=== PATIENT | female | born 1935 | race African-American/Black ===

== ENCOUNTER 2017-01-10 23:22 | Emergency (ER) | payer MEDICARE ==
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
[2017-01-11 01:37] VITALS: BP 159/77
== END 2017-01-11 01:44 | disposition home or self-care (01) ==
LOC: ED 23:22
DX: I10 Essential (primary) hypertension (principal); R53.1 Weakness; E11.9 Type 2 diabetes mellitus without complications; E03.9 Hypothyroidism, unspecified; I25.119 Atherosclerotic heart disease of native coronary artery with unspecified angina pectoris; E78.00 Pure hypercholesterolemia, unspecified; I25.2 Old myocardial infarction; I73.9 Peripheral vascular disease, unspecified; J45.909 Unspecified asthma, uncomplicated; K57.90 Diverticulosis of intestine, part unspecified, without perforation or abscess without bleeding; K21.9 Gastro-esophageal reflux disease without esophagitis; Z88.0 Allergy status to penicillin
CPT/HCPCS: 93005; 99284

== ENCOUNTER → 2017-02-13 | Emergency (ER) | payer MEDICARE ==
[~2017-02-13] MED LIST: NS 0.9% 1000 ML* 1,000 ML IV ONE; Nitrofurantoin Macrocrystals* 100 MG CAP PO ONE; Sulfamethox/Trimethoprim DS 800/160* TAB PO ONE
[2017-02-13 10:03] LABS: Hematocrit 36 % (35-47); Hemoglobin 11.9 g/dl (12.0-16.0); Mean Corpuscular HGB Conc 33 g/dl (31-36); Mean Corpuscular Hemoglobin 30 pg (27-31); Mean Corpuscular Volume 88 fL (80-97); Red Blood Count 4.03 10^6/ul (4.0-5.4); Red Cell Distribution Width 14 % (10.5-15)
[2017-02-13 10:04] LABS: Add Diff/Slide Review? Slide Review Added; Comments Flag Yes
[2017-02-13 10:16] LABS: Troponin I 0.01 ng/mL (<0.04)
[2017-02-13 10:20] LABS: ALT 10 U/L (7-52); Albumin 3.9 g/dL (3.2-5.2); Alkaline Phosphatase 54 U/L (34-104); BUN/Creatinine Ratio 21.8 (8-20); Blood Urea Nitrogen 32 mg/dL (6-24); CO2 Carbon Dioxide 29 mmol/L (22-32); Calcium 10.8 mg/dL (8.6-10.3); Chloride 99 mmol/L (101-111); EGFR African American 44.1 (>60); EGFR Non-African American 34.3 (>60); Globulin 3.9 g/dL (2-4); Glucose 100 mg/dL (70-100); Sodium 135 mmol/L (133-145); Total Protein 7.8 g/dL (6.4-8.9)
--- NOTE | 2017-02-13 10:26 | RAD ---
Indication: Dizziness. Asthma. Hypertension. Comparison: May 16, 2015 Technique: PA and lateral chest views. Report: Elevated lung volumes with increased AP thoracic diameter. No pulmonary infiltrate, focal pulmonary lesion, pleural effusion, pneumothorax. Cardiomegaly. Unremarkable central pulmonary vasculature. Moderately tortuous thoracic aorta without change. Thoracic degenerative spondylosis. Arthropathic change at the bilateral shoulders. IMPRESSION: 1. Stigmata of probable obstructive lung disease corresponding with history of asthma. 2. Cardiomegaly without evidence for pulmonary edema. 3. No acute intrathoracic process evident.
[2017-02-13 10:37] LABS: TSH (Thyroid Stimulating Horm) 3.89 mcIU/mL (0.34-5.60)
[2017-02-13 10:50] LABS: Mean Platelet Volume 9 um3 (7.4-10.4); White Blood Count 13.9 10^3/ul (3.5-10.8)
[2017-02-13 11:10] LABS: Anion Gap 7 mmol/L (2-11)
[2017-02-13 11:32] LABS: Urine Bacteria 1+ (Absent); Urine Bilirubin Negative (Negative); Urine Glucose Negative (Negative); Urine Nitrite Positive (Negative)
[2017-02-13 11:57] VITALS: BP 123/83
[2017-02-13 12:09] LABS: Magnesium 2.1 mg/dL (1.9-2.7)
--- NOTE | 2017-02-14 08:33 | ED ---
Rg Mir Angela, scribed for Panfilo Baxter MD on 02/13/17 at 0800 . Dizziness - HPI Summary HPI Summary: This pt is a 81 y/o female accompanied by her presenting to [facility] c/o dizziness approximately x1 week. Pt reports she feels light-headed and like she is going to faint. Pt denies headache, blurry vision, visual changes, chest pain , SOB. Pt states she has a kidney infection and was taking antibiotics for this. She notes she only took it twice and stopped it as "they were too strong" and caused her dizziness. Pt is a poor historian and is unsure of what antibiotics she was taking. PCP: Chloe Singh - History Of Current Complaint Chief Complaint: EDDizziness Stated Complaint: DIZZY Time Seen by Provider: 02/13/17 07:43 Hx Obtained From: Patient Onset/Duration: Still Present Timing: Days Character: Lightheaded - feeling like passing out Aggravating Factor(s): Nothing Alleviating Factor(s): Nothing Associated Signs And Symptoms: Negative: Chest Pain, SOB, Visual Changes - Allergies/Home Medications Allergies/Adverse Reactions: Allergies Allergy/AdvReac Type Severity Reaction Status Date / Time Penicillin G Allergy Unknown Verified 12/22/14 09:18 Reaction Details ENVIRONMENTAL Allergy HEADACHES Uncoded 12/22/14 09:18 PMH/Surg Hx/FS Hx/Imm Hx Endocrine/Hematology History: Reports: Hx Diabetes - DIET CONTROL, Hx Thyroid Disease - hypothyroid Denies: Hx Anticoagulant Therapy, Hx Blood Disorders, Hx Blood Transfusions, Hx Bone Marrow Disease, Hx Systemic Lupus Erythematosus, Hx Sickle Cell Disease , Hx Anemia, Hx Unexplained Bleeding Cardiovascular History: Reports: Hx Angina, Hx Angioplasty, Hx Coronary Artery Disease, Hx Deep Vein Thrombosis, Hx Hypercholesterolemia, Hx Hypertension - controlled with meds, Hx Myocardial Infarction, Hx Peripheral Vascular Disease Denies: Hx Aneurysm, Hx Auto Implanted Cardiovert Defib, Hx Cardiac Arrest, Hx Cardiomegaly, Hx Congenital Heart Disease, Hx Congestive Heart Failure, Hx Hypotension, Hx Pacemaker/ICD, Hx Rheumatic Fever, Hx Syncope, Hx Valvular Heart Disease Respiratory History: Reports: Hx Asthma, Hx Sleep Apnea - states hx of but does not use CPAP at home Denies: Hx Chronic Bronchitis, Hx Chronic Obstructive Pulmonary Disease (COPD ), Hx Cystic Fibrosis, Hx Lung Cancer, Hx Pleural Effusion, Hx Pneumonia, Hx Pulmonary Edema, Hx Pulmonary Embolism, Hx Seasonal Allergies, Other Respiratory Problems/Disorders GI History: Reports: Hx Diverticulosis, Hx Gastroesophageal Reflux Disease Denies: Hx Cirrhosis, Hx Crohn's Disease, Hx Gall Bladder Disease, Hx Gastrointestinal Bleed, Hx Hiatal Hernia, Hx Irritable Bowel, Hx Jaundice, Hx Obstructive Bowel, Hx Ileostomy, Hx Pyloric Stenosis, Hx Ulcer, Other GI Disorders History: Denies: Hx Acute Renal Failure, Hx Benign Prostatic Hyperplasia, Hx Chronic Renal Failure, Hx Dialysis, Hx Kidney Infection, Hx Kidney Stones, Other Problems/Disorders Musculoskeletal History: Reports: Hx Arthritis - generalized, Hx Back Problems, Hx Tendonitis - fingers, 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) Denies: Hx Bursitis, Hx Congenital Bone Abnormalities, Hx Fibromyalgia, Hx Gout, Hx Orthopedic Injury, Hx Osteoporosis, Hx Scoliosis Sensory History: Reports: Hx Cataracts, Hx Contacts or Glasses, Hx Glaucoma, Hx Vision Problem, Hx Hearing Problem Denies: Hx Eye Injury, Hx Eye Prosthesis, Hx Macular Degeneration, Hx Deafness, Hx Hearing Aid, Other Sensory Impairments Opthamlomology History: Reports: Hx Cataracts, Hx Contacts or Glasses, Hx Glaucoma, Hx Vision Problem Denies: Hx Eye Injury, Hx Eye Prosthesis, Hx Macular Degeneration, Other Sensory Impairments Neurological History: Reports: Hx Headaches - once in a while, not chronic Denies: Hx Dementia, Hx Developmental Delay, Hx Migraine, Hx Seizures, Hx Spinal Cord Injury, Hx Transient Ischemic Attacks (TIA) Psychiatric History: Denies: Hx Anxiety, Hx Attention Deficit Hyperactivity Disorder, Hx Eating Disorder, Hx Depression, Hx Panic Disorder, Hx Post Traumatic Stress Disorder, Hx Inpatient Treatment, Hx Community Mental Health Tx, Hx Schizophrenia, Hx Bipolar Disorder, Hx Suicide Attempt, Hx Substance Abuse, Other Psychiatric Issues/Disorders - Cancer History Hx Chemotherapy: No Hx Radiation Therapy: No - Surgical History Surgery Procedure, Year, and Place: LEFT KNEE X2.....RIGHT KNEE X1 Hx Anesthesia Reactions: No - Immunization History Date of Influenza Vaccine: 2016 Infectious Disease History: No Infectious Disease History: Reports: History Other Infectious Disease - herpes Denies: Hx Clostridium Difficile, Hx Hepatitis, Hx Human Immunodeficiency Virus (HIV), Hx of Known/Suspected MRSA, Hx Shingles, Hx Tuberculosis, Hx Known/ Suspected VRE, Hx Known/Suspected VRSA, Traveled Outside the [place] in Last 30 Days - Family History Known Family History: Positive: Diabetes Family History: Type II - Social History Alcohol Use: None Hx Substance Use: No Substance Use Type: Reports: None Hx Tobacco Use: No Smoking Status (MU): Never Smoked Tobacco Have You Smoked in the Last Year: No Review of Systems Negative: Fever, Chills Negative: Blurred Vision, Diplopia Negative: Chest Pain Negative: Shortness Of Breath Neurological: Other - dizziness Negative: Headache All Other Systems Reviewed And Are Negative: Yes Physical Exam - Summary Physical Exam Summary: VITAL SIGNS: Reviewed. GENERAL: Patient is a well-developed and nourished female who is lying comfortable in the stretcher. Patient is not in any acute respiratory distress. HEAD AND FACE: No signs of trauma. No ecchymosis, hematomas or skull depressions. No sinus tenderness. EYES: PERRLA, EOMI x 2, No injected conjunctiva, no nystagmus. EARS: Hearing grossly intact. Ear canals and tympanic membranes are within normal limits. MOUTH: Oropharynx within normal limits. NECK: Supple, trachea is midline, no adenopathy, no JVD, no carotid bruit, no c- spine tenderness, neck with full ROM. CHEST: Symmetric, no tenderness at palpation LUNGS: Clear to auscultation bilaterally. No wheezing or crackles. CVS: Regular rate and rhythm, S1 and S2 present, no murmurs or gallops appreciated. ABDOMEN: Soft, non-tender. No signs of distention. No rebound no guarding, and no masses palpated. Bowel sounds are normal. EXTREMITIES: FROM in all major joints, no edema, no cyanosis or clubbing. NEURO: Alert and oriented x 3. No acute neurological deficits. Speech is normal and follows commands. SKIN: Dry and warm Triage Information Reviewed: Yes Vital Signs On Initial Exam: Initial Vitals Temp Pulse Resp BP Pulse Ox 97.8 F 85 18 141/77 100 02/13/17 07:29 02/13/17 07:29 02/13/17 07:29 02/13/17 07:29 02/13/17 07:29 Vital Signs Reviewed: Yes Diagnostics - Vital Signs Vital Signs Temp Pulse Resp BP Pulse Ox 02/13/17 07:29 97.8 F 85 18 141/77 100 - Laboratory Result Diagrams: 02/13/17 09:33 02/13/17 11:18 Lab Statement: Any lab studies that have been ordered have been reviewed, and results considered in the medical decision making process. - Radiology Chest XR Xray Interpretation: Positive (See Comments) - IMPRESSION: 1. Stimata of probable obstructive lung disease corresponding with history of asthma. 2. Cardiomegaly without evidence for pulmonary edema. 3. No acute intrathoracic process evident. ED physician has reviewed this radiology report and agrees. Radiology Interpretation Completed By: Radiologist - EKG 0940 Cardiac Rate: Bradycardia EKG Rhythm: Sinus Rhythm - at 59 bpm EKG Interpretation: Right bundle branch block. EKG Comparison: No Significant Change - similart to prior EKG one 01/11/17. Dizzy Course/Dx - Course Assessment/Plan: This pt is a 81 y/o female accompanied by her presenting to [facility] c/o dizziness approximately x1 week. Pt reports she feels light-headed and like she is going to faint. Pt denies headache, blurry vision, visual changes, chest pain, SOB. Pt states she has a kidney infection and was taking antibiotics for this. She notes she only took it twice and stopped it as "they were too strong" and caused her dizziness. Pt is a poor historian and is unsure of what antibiotics she was taking. PCP: Chloe Singh. Test results show WBC of 13.9, chronic renal failure, and UTI. In the ED course, the pt declined IV fluids, but she is drinking water. Pt was given Macrobid since when she was given Bactrim she developed dizziness. At this point I discussed the test results and findings with the pt and pts son. They agreed to go home and follow up with the pts PCP. Pt is hemodynamically stable, alert and oriented x3. - Diagnoses Provider Diagnoses: Urinary tract infection, Dizziness Discharge - Discharge Plan Condition: Stable Disposition: HOME Prescriptions: Nitrofurantoin Macrocrystals* [Macrodantin*] 100 mg PO BID #20 cap Patient Education Materials: Urinary Tract Infection in Women (ED) Referrals: Chloe Schneider [Primary Care Provider] - Additional Instructions: Please follow up with your primary care provider. RETURN TO THE ED FOR ANY WORSENING SYMPTOMS. The documentation as recorded by the Rg spann Angela accurately reflects the service I personally performed and the decisions made by me, Panfilo Baxter MD.
--- NOTE | 2017-02-15 09:02 | PN ---
Progress Note - Progress Note Date of Service: 02/13/17 Note: patient diagnosed and treated for UTI. culture results show 75-100,000 of aerococcus species which has susceptibility to commonly used antimicrobials. d/c on macrobid. which should have sufficient coverage per culture results. no further action required at this time.
== END | disposition home or self-care (01) ==
LOC: ED 07:27
DX: N39.0 Urinary tract infection, site not specified (principal); R42 Dizziness and giddiness; I25.10 Atherosclerotic heart disease of native coronary artery without angina pectoris; Z86.718 Personal history of other venous thrombosis and embolism; E78.00 Pure hypercholesterolemia, unspecified; I10 Essential (primary) hypertension; I25.2 Old myocardial infarction; I73.9 Peripheral vascular disease, unspecified; J45.909 Unspecified asthma, uncomplicated; G47.30 Sleep apnea, unspecified
CPT/HCPCS: 36415; 71020; 80053; 81003; 81015; 83735; 84443; 84484; 85025; 87077; 87086; 93005; 96360; 99283; A9270-GY

== ENCOUNTER 2017-05-02 17:21 | Emergency (ER) | payer MEDICARE ==
[2017-05-02] MEDS ORDERED: Morphine INJ* 4 MG/ML 1 ML CARPUJECT IV ONE (17:43)
[2017-05-02] MEDS ORDERED: Ondansetron INJ* 2 MG/ML VIAL IV ONE (17:43)
[2017-05-02] MEDS ORDERED: NS 0.9% 1000 ML* 1,000 ML IV ONE (17:44)
--- NOTE | 2017-05-02 17:49 | ED ---
GI/ HPI - HPI Summary HPI Summary: 81-year-old female presents with right flank pain for the past 2 days. She says she has a history of kidney stones and had a ultrasound shows such a couple weeks ago. She denies any nausea or vomiting. She denies any injury. She denies any saddle anesthesia or loss of bowel or bladder. She denies any diarrhea. She admits to constipation. She denies any abdominal pain. She denies any abdominal surgeries. She does not have a urologist. She denies any hematuria, dysuria, frequency, or urgency. She denies any chest pain or shortness of breath. She states she has had this pain before when she had a kidney stone on the other side. She took her tramadol without relief. She states pain is worse with movement. She denies any pain or numbness or tingling down her legs. She is a diabetic and has high blood pressure and has chronic kidney disease that follows up with Dr. Carpio for. pain is 10/10. She denies any fever. - History of Current Complaint Chief Complaint: EDFlankPain Time Seen by Provider: 05/02/17 17:32 Stated Complaint: BACK PAIN Pain Intensity: 10 - Additional Pertinent History Primary Care Physician: [id number] - Allergy/Home Medications Allergies/Adverse Reactions: Allergies Allergy/AdvReac Type Severity Reaction Status Date / Time MS Penicillin G Allergy Unknown Verified 12/22/14 09:18 [Penicillin G] Reaction Details ENVIRONMENTAL Allergy HEADACHES Uncoded 12/22/14 09:18 PMH/Surg Hx/FS Hx/Imm Hx Endocrine/Hematology History: Reports: Hx Diabetes - DIET CONTROL, Hx Thyroid Disease - hypothyroid Denies: Hx Anticoagulant Therapy, Hx Blood Disorders, Hx Blood Transfusions, Hx Bone Marrow Disease, Hx Systemic Lupus Erythematosus, Hx Sickle Cell Disease , Hx Anemia, Hx Unexplained Bleeding Cardiovascular History: Reports: Hx Angina, Hx Angioplasty, Hx Coronary Artery Disease, Hx Deep Vein Thrombosis, Hx Hypercholesterolemia, Hx Hypertension - controlled with meds, Hx Myocardial Infarction, Hx Peripheral Vascular Disease Denies: Hx Aneurysm, Hx Auto Implanted Cardiovert Defib, Hx Cardiac Arrest, Hx Cardiomegaly, Hx Congenital Heart Disease, Hx Congestive Heart Failure, Hx Hypotension, Hx Pacemaker/ICD, Hx Rheumatic Fever, Hx Syncope, Hx Valvular Heart Disease Respiratory History: Reports: Hx Asthma, Hx Sleep Apnea - states hx of but does not use CPAP at home Denies: Hx Chronic Bronchitis, Hx Chronic Obstructive Pulmonary Disease (COPD ), Hx Cystic Fibrosis, Hx Lung Cancer, Hx Pleural Effusion, Hx Pneumonia, Hx Pulmonary Edema, Hx Pulmonary Embolism, Hx Seasonal Allergies, Other Respiratory Problems/Disorders GI History: Reports: Hx Diverticulosis, Hx Gastroesophageal Reflux Disease Denies: Hx Cirrhosis, Hx Crohn's Disease, Hx Gall Bladder Disease, Hx Gastrointestinal Bleed, Hx Hiatal Hernia, Hx Irritable Bowel, Hx Jaundice, Hx Obstructive Bowel, Hx Ileostomy, Hx Pyloric Stenosis, Hx Ulcer, Other GI Disorders History: Denies: Hx Acute Renal Failure, Hx Benign Prostatic Hyperplasia, Hx Chronic Renal Failure, Hx Dialysis, Hx Kidney Infection, Hx Kidney Stones, Other Problems/Disorders Musculoskeletal History: Reports: Hx Arthritis - generalized, Hx Back Problems, Hx Tendonitis - fingers, 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) Denies: Hx Bursitis, Hx Congenital Bone Abnormalities, Hx Fibromyalgia, Hx Gout, Hx Orthopedic Injury, Hx Osteoporosis, Hx Scoliosis Sensory History: Reports: Hx Cataracts, Hx Contacts or Glasses, Hx Glaucoma, Hx Vision Problem, Hx Hearing Problem Denies: Hx Eye Injury, Hx Eye Prosthesis, Hx Macular Degeneration, Hx Deafness, Hx Hearing Aid, Other Sensory Impairments Opthamlomology History: Reports: Hx Cataracts, Hx Contacts or Glasses, Hx Glaucoma, Hx Vision Problem Denies: Hx Eye Injury, Hx Eye Prosthesis, Hx Macular Degeneration, Other Sensory Impairments Neurological History: Reports: Hx Headaches - once in a while, not chronic Denies: Hx Dementia, Hx Developmental Delay, Hx Migraine, Hx Seizures, Hx Spinal Cord Injury, Hx Transient Ischemic Attacks (TIA) Psychiatric History: Denies: Hx Anxiety, Hx Attention Deficit Hyperactivity Disorder, Hx Eating Disorder, Hx Depression, Hx Panic Disorder, Hx Post Traumatic Stress Disorder, Hx Inpatient Treatment, Hx Community Mental Health Tx, Hx Schizophrenia, Hx Bipolar Disorder, Hx Suicide Attempt, Hx Substance Abuse, Other Psychiatric Issues/Disorders - Cancer History Hx Chemotherapy: No Hx Radiation Therapy: No - Surgical History Surgery Procedure, Year, and Place: LEFT KNEE X2.....RIGHT KNEE X1 Hx Anesthesia Reactions: No - Immunization History Date of Influenza Vaccine: 2016 Infectious Disease History: No Infectious Disease History: Reports: History Other Infectious Disease - herpes Denies: Hx Clostridium Difficile, Hx Hepatitis, Hx Human Immunodeficiency Virus (HIV), Hx of Known/Suspected MRSA, Hx Shingles, Hx Tuberculosis, Hx Known/ Suspected VRE, Hx Known/Suspected VRSA, Traveled Outside the [place] in Last 30 Days - Family History Known Family History: Positive: Diabetes Family History: Type II - Social History Alcohol Use: None Hx Substance Use: No Substance Use Type: Reports: None Hx Tobacco Use: No Smoking Status (MU): Never Smoked Tobacco Have You Smoked in the Last Year: No Review of Systems Negative: Fever Negative: Chest Pain Negative: Shortness Of Breath Negative: Abdominal Pain, Vomiting, Diarrhea Positive: flank pain. Negative: dysuria, frequency All Other Systems Reviewed And Are Negative: Yes Physical Exam Triage Information Reviewed: Yes Vital Signs On Initial Exam: Initial Vitals Temp Pulse Resp BP Pulse Ox 97.3 F 72 20 153/79 99 05/02/17 17:24 05/02/17 17:24 05/02/17 17:24 05/02/17 17:24 05/02/17 17:24 Vital Signs Reviewed: Yes Appearance: Positive: Pain Distress Skin: Positive: Warm, Dry Head/Face: Positive: Normal Head/Face Inspection Eyes: Positive: Normal, Conjunctiva Clear Respiratory/Lung Sounds: Positive: Clear to Auscultation, Breath Sounds Present Cardiovascular: Positive: Normal, RRR Abdomen Description: Positive: Nontender, Soft, CVA Tenderness (R) Bowel Sounds: Positive: Present Musculoskeletal: Positive: Normal Neurological: Positive: Normal Psychiatric: Positive: Normal Diagnostics - Vital Signs Vital Signs Temp Pulse Resp BP Pulse Ox 05/02/17 17:24 97.3 F 72 20 153/79 99 - Laboratory Result Diagrams: 05/02/17 18:30 05/02/17 18:30 Lab Statement: Any lab studies that have been ordered have been reviewed, and results considered in the medical decision making process. - CT abd CT Interpretation: Positive (See Comments) - IMPRESSION: 1. PUNCTATE BILATERAL NONOBSTRUCTING RENAL CALYCEAL STONES. 2. DIVERTICULOSIS. 3. ATHEROSCLEROSIS. 4. HEPATOMEGALY. CT Interpretation Completed By: Radiologist MARIO Course/Dx - Course Course Of Treatment: 81-year-old female presents with right flank pain for the past 2 days. She says she has a history of kidney stones and had a ultrasound shows such a couple weeks ago. She denies any nausea or vomiting. She denies any injury. She denies any saddle anesthesia or loss of bowel or bladder. She denies any diarrhea. She admits to constipation. She denies any abdominal pain. She denies any abdominal surgeries. She does not have a urologist. She denies any hematuria, dysuria, frequency, or urgency. She denies any chest pain or shortness of breath. She states she has had this pain before when she had a kidney stone on the other side. She took her tramadol without relief. She states pain is worse with movement. She denies any pain or numbness or tingling down her legs. On exam abdomen soft nontender. CVA tenderness on right side. CT shows nonobstructing renal stones. labs wbc normal. bun and cr about where has been with kidney disease. urine shows infection. will treat with bactrim as possibly has pyelo with flank pain. will treat for 10 days with such. told to take potassium every other day as bactrim increase potassium. will have follow up with primary. will give referral for urology for renal stones. patient understand and agrees with plan. - Diagnoses Differential Diagnoses - Female: Pyelonephritis, Urinary Tract Infection, Ureteral Calculi Provider Diagnoses: Renal colic on right side, Chronic kidney disease, UTI (urinary tract infection ) Discharge - Discharge Plan Condition: Good Disposition: HOME Prescriptions: oxyCODONE/Acetamin 5/325 MG* [Percocet 5/325 TAB*] 1 tab PO Q6H PRN #8 tab MDD 4 PRN Reason: Pain Sulfamethox/Trimethoprim DS* [Bactrim DS 800/160 TAB*] 1 tab PO DAILY #19 tab Patient Education Materials: Urinary Tract Infection in Women (ED), Renal Colic (ED) Referrals: Chloe Schneider [Primary Care Provider] - Noble Moreno MD [Medical Doctor] - Additional Instructions: Take antibiotic twice a day for 10 days, starting tomorrow Take potassium every other day until stop antibiotic Drink plenty of water Take Tylenol every 6 hours, use narcotic for break through pain Establish care with urology Follow up with primary within 7 days Return to ED if develop any new or worsening symptoms
--- OUTSIDE RECORDS SUMMARY | 2017-05-02 18:00 | XMS REPORT ---
:1935 External Reference #:[id number] Author Organization [employer] Address [address] [address] Phone [phone] Care Team Providers Name Role Phone [facility] Primary Care Physician Unavailable Payers Type Date Identification Numbers Payment Provider Subscriber Medicare Primary Effective: Policy Number: Medicare Neris Perdomo 1987 [id number] PayID: [id number] [facility] [address] [place] [address] Problems Date Description Provider Status Onset: 04/29/2013 Chest pain Carson Hartley M.D. Active Onset: 04/29/2013 Dyspnea Carson Hartley M.D. Active Onset: 04/29/2013 Coronary arteriosclerosis Carson Hartley M.D. Active Onset: 04/29/2013 Essential hypertension Carson Hartley M.D. Active Onset: 12/01/2013 Degenerative joint disease Norbert Kidd M.D. Active involving multiple joints Onset: 12/01/2013 Osteoporosis Norbert Kidd M.D. Active Onset: 12/01/2013 Disorder of bursa of shoulder Norbert Kidd M.D. Active region Onset: 12/01/2013 Spinal stenosis Norbert Kidd M.D. Active Onset: 04/16/2014 Myalgia & Myositis Unspec Norbert Kidd M.D. Active Onset: 08/13/2014 Senile osteoporosis Phillip Sheffield M.D. Active Onset: 08/13/2014 Chronic pain syndrome Phillip Sheffield M.D. Active Onset: 02/15/2015 Taking medication Phillip Sheffield M.D. 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 Cigarette Use Never Smoked Cigarettes ETOH Use Denies alcohol use Recreational Drug Use Denies Drug Use Smoking Patient has never smoked Daily Caffeine consumes chocolate occasionally Daily Caffeine Consumes on average 1 soda per day Exercise Type/Frequency Exercises rarely Exercise Type/Frequency strengthening classes 2X a week Currently Active Patient is currently not sexually active Allergies, Adverse Reactions, Alerts Date Description Reaction Status Severity Comments 04/29/2013 Cat Dander active 04/29/2013 Dog Dander active 04/29/2013 Perfume active 04/29/2013 Tar active 05/27/2013 Cigarette Smoke active 12/09/2014 Penicillin active 02/06/2014 NKDA inactive Medications Medication Date Status Form Strength Qnty SIG Indications Ordering Provider Vitamin A 03/30/ Active Capsules [id number] 1 daily Zsofia 2017 [place], FNP Diltiazem HCL 01/17/ Active Caps ER 180mg 90caps 1 po qd Carson ER 2016 24HR Justin Hartley M.D. Calcium 09/13/ Active Tablets 600-800mg- 60tabs 1 by mouth M81.0 Zsofia 600/Vitamin D3 2017 Unit twice a Cortez, day 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 Prolia 09/12/ Active Solution 60mg/ml 60mg 60 mg sc M81.0 Zsofia 2017 q6mon [place], RAY Ibuprofen 08/16/ Active Tablets 800mg 60tabs 1 tab by M54.32 Zsofia 2017 mouth [place], three 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 times a day with food as needed Triamcinolone 02/27/ Active Lotion 0.025% 60ml use on R2 Zsofia Acetonide 2016 affected [place], area 2x 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 daily as needed Nitrostat 12/31/ Active Tablets 0.4mg 25tabs one sl Carson 2011 Sub q5min up D. Brand, to 3 doses M.D. prn, if no relief call 911 Tramadol HCL 11/14/ Active Tablets 50mg 40tabs 1 po q 4-6 Dirk 2011 hr prn Tyler Spence Simvastatin 12/16/ Active Tablets 20mg 90tabs 1 tablet 250.00 Stevanoblade 2008 at bed c, time Tyler Mendieta Baby Aspirin 12/16/ Active Chewtabs 81mg 100uni 1 tablet 250.00 Stevanovi 2008 ts po daily cAnam M.D. Lisinopril / Active Tablets 10mg 90tabs 1 po qd Stevanovi cAnam M.D. Cod Liver Oil / Active Capsule 1 cap po Unknown Plus Vitamin 0000 qd A&D3 Potassium / Active Tablet 10Meq One tab 250.00 Unknown Chloride 0000 daily Valacyclovir / Active Tablets 500mg 60tabs take 1 Unknown HCL 0000 tablet by mouth twice a day Travatan Z / Active Solution 0.004% one drop Unknown 0000 in each eye at hs Omeprazole / Active Capsules 20mg 1 cap po Unknown 0000 DR twice daily Docusate Sodium / Active 50mg 2 tablet Unknown 0000 po daily Iron / Active Tablets 325(65Fe) 1 by mouth Unknown 0000 mg every day Oxycodone-Aceta / Active Tablets 5-325mg 1 po pm Linda-H minophen 0000 ekChloe orellana PA Centrum Adults / Active Tablets as Unknown 0000 directed Cranberry / Active 8400mg 1 daily Unknown 0000 Calcium 1000 + 09/12/ Hx Tablets 1000-800mg 90tabs 1 by mouth M81.0 Zsofia D 2016 - -Unit every day Cortez, 09/21/ 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 2017 Calcium 600 09/06/ Hx Tablets 600mg 180tab 1 tab by M81.0 Zsofiyoni 2015 - s mouth 2x Cortez, 09/12/ daily 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 2017 Percocet 04/19/ Hx Tablets 5-325mg 80tabs 1 by mouth S83.402D Dirk 2015 - every 6 Jordy, 09/06/ hours as M.D. 2016 needed pain Fiber 08/13/ Hx Tablets 625mg 60tabs 5 by mouth Phillip 2014 - daily Endo, 10/21/ M.D. 2016 Duloxetine HCL 04/16/ Hx Caps DR 20mg 60caps 2 together 729.1 Phillip 2014 - Part by mouth Endo, 05/24/ every day M.D. 2014 Prolia 01/14/ Hx Solution 60mg/ml 60mg 60 mg sc M81.0 Norbert 2013 - q6mon Kidd, 08/07/ M.D. 2016 M81.0 Caltrate 01/14/2014 Hx Tablets 083-446rr-Hqmm 60tabs 1 po bid 733.00 Norbert 600+D - Kidd, 02/11/2015 M.D. Cymbalta 01/14/[address] Caceres 30mg 30caps 1 by mouth 729.1 Norbert - every day Kidd, 04/16/2014 M.D. Ativan 06/21/2012 Hx Tablets 1mg 2tabs take one Billy - tablet one Óscar, 05/24/2014 hour prior M.D. to procedure. May take an additional one at the time of the procedure if needed. Oxycodone/Ac 09/20/2011 Hx Tablets 5-325mg 60tabs 1 po q6h Dirk etaminophen - prn pain Jordy, 04/26/2013 M.D. Oxycodone/Ac 10/17/2010 Hx Capsules 5-500mg 80caps 1 tablet Dirk etaminophen - by mouth Jordy, 04/26/2013 every 4-6 M.D. hours as needed Cipro 10/07/2010 Hx Tablets 250mg 6tabs 1 tab po Dirk - q12h x 3 Jordy, 10/07/2010 days M.D. Cipro 10/07/2010 Hx Tablets 250mg 6tabs 1 tab po Dirk - q12h x 3 Jordy, 04/26/2013 days M.D. Oxycodone/Ac 10/03/2010 Hx Tablets 5-325mg 120tabs 2 po q 4 Dirk etaminophen - hr prn Jordy, 04/26/2013 pain M.D. Bactrim DS 09/13/2010 Hx Tablets 800-160mg 6tabs 1 po bid Dirk - for 3 days Jordy, 04/26/2013 M.DEladio Percocet 09/12/2010 Hx Tablets 5-325mg 60tabs 1-2 po q4h Dirk - prn pain Jordy, 04/26/2013 M.DEladio Coumadin 09/12/2010 Hx Tablets 2.5mg 50tabs use as Dirk - directed Jordy, 04/26/2013 Kiah.Justin Sulfamethoxa 11/01/2009 Hx Tablets 400-80mg Take two Sivanand zole/Trimeth - for first a, oprim 04/26/2013 two days Poopal, then 1/2 MD tab at bedtime. Eq 10/14/[address] 20mg 30tabs 1 qd 530.81 Sivanand Omeprazole - a, 04/26/2013 MD Ebenezer Miconazole 3 07/09/2009 Hx Suppository 200mg 3units 1 112.1 Stevanov - suppositor ic, 08/11/2009 y in Radomir, vagina for M.DEladio days Cipro 05/24/2009 Hx Tablets 250mg 20tabs 1 po bid 599.0 Stevanov - ic, 07/09/2009 Tyler Mendieta Ranexa 01/08/2009 Hx Tablets ER 500mg 60tabs 1 tab po 307.42 Stevanov - 12HR bid ic, 08/11/2009 Tyler Mendieta Zithromax 01/04/2009 Hx Tablets 500mg 3tabs 1 tab po Stevanov Tri-Zane - daily ic, 03/22/2009 Tyler Mendieta Ativan 12/23/2008 Hx Tablets 1mg 2tabs 1 tablet Stevanov - po 1 hour ic, 08/11/2009 prior to tiffanie Mendieta M.D. and 1 tablet at procedure Isosorbide 12/16/2008 Hx Tablet 60mg 90tabs 1 tablet 250.00 Stevanov Mononitrate - po Daily ic, CR 04/26/2013 Tyler Mendieta Ramipril 12/16/2008 Hx Capsules 10mg 90caps 1 cap po 250.00 Panfilo - daily E. 04/26/2013 Tyler Geronimo 401.9 Pantoprazole 12/16/2008 - Hx Tablets DR 40mg 60tabs 1 po bid 250.00 Panfilo E. Sodium 04/26/2013 Tyler Geronimo Cartia XT 12/16/2008 - Hx Caps ER 300mg 90caps 1 capsule 250.00 Stevanovic 05/26/2013 24HR po Daily , Tyler Mendieta Potassium 12/16/2008 - Hx Tablets ER 10Meq 90tabs 1 tablet 250.00 Stevanovic Chloride CR 01/14/2014 po daily , Tyler Mendieta Carisoprodol 12/16/2008 - Hx Tablets 350mg 90tabs 1 tablet 250.00 Stevanovic 08/11/2009 po daily , Tyler Mendieta Tramadol HCL - Hx Tablets 50mg po 6hrs Unknown 04/29/2013 prn Metoprolol - Hx Tablets ER 50mg bid Unknown Succinate 04/26/2013 24HR Omeprazole - Hx Capsules DR 20mg 30caps 1 po qd 530.81 Unknown 12/15/2013 Cranberry/Vitami - Hx Capsules 84-20mg 1 po bid Unknown n C 10/21/2016 Diltiazem CD - Hx Caps ER 180mg 90caps 1 po qd Unknown 01/17/2017 24HR Stool Softener - Hx Capsules 100mg 60caps 1 po qd Am Unknown (Dulcolax) 02/11/2015 Miralax - Hx Powder 3350NF 238gm 17 gm qd Unknown 08/13/2014 mixed w/ 8 oz water/juic e Ranitidine HCL - Hx Capsules 150mg 180caps 1 by mouth Unknown 05/24/2014 twice a day Duloxetine HCL - Hx Caps DR 30mg 30caps 1 by mouth Unknown 05/24/2014 Part every day Calcium - Hx 1200mg 1 daily Unknown 09/07/2015 Bactrim DS - Hx Tablets 800-160 42tabs 1 by mouth Unknown 05/24/2014 mg twice a day 10 d Vitamin D3 - Hx Capsules 1000Uni 180caps 2 by mouth E55.9 Zsofia 06/13/2016 t every day RAY Toro M81.0 Fibercon - Hx Tablets 625mg by mouth Unknown 07/15/2015 twice a day Percocet - Hx Tablets 5-325mg 1-2 by Unknown 07/15/2015 mouth every 4 to 6 hours as needed pain Cyclobenzaprine HCL - Hx Tablets 5mg 1 tablet Stevanovic, 09/07/2015 by mouth MD Anam three times a day Cipro - Hx Tablets 500mg 1 by mouth Unknown 09/07/2015 twice a day for three days Duloxetine HCL - Hx Caps DR Caceres 30mg Cherry, 06/13/2016 RAY Ortiz-BC Sulfamethoxazole/Tri - Hx Tablets 800-160mg 1 by mouth Unknown methoprim DS 02/28/2016 twice a day Metamucil - Hx Unknown 01/12/2017 Vitamin D3 - Hx Capsules 1000Unit 1 daily Unknown 03/30/2017 Medications Administered in Office Medication Date Status Form Strength Qnty SIG Indications Ordering Provider Prolia Administered Injection Nurse Visit Injection, 018 RH Denosumab, 1MG Prolia Administered Injection Zsofia Injection, 017 RAY Toro Denosumab, 1MG Depomedrol Administered Injection Dirk Jordy, 40MG 017 M.D. Depomedrol Administered Injection Dirk Jordy, 40MG 017 M.D. Prolia Administered Injection Nurse Visit Injection, 017 C Denosumab, 1MG Prolia Administered Injection Zsofia Injection, 016 RAY Toro Denosumab, 1MG Inj, Administered Injection Carson Anderson Regadenoson, 016 Tyler Hartley 0.1 MG Technetium TC Administered Injection Carson Anderson 99M 016 Tyler Hartley Tetrofosmin, Per Unit Dose Up To 40 Millicuries Prolia Administered Injection Phillip Injection, 015 Endo, MEladioD. Denosumab, 1MG Prolia Administered Injection Phillip Injection, 015 Endo, M.D. Denosumab, 1MG Depomedrol Administered Injection Dirk Jordy, 20MG 015 M.DEladio Depomedrol Administered Injection Billy 80MG 015 Tyler Cantrell Prolia Administered Injection Nurse Visit Injection, 014 RH Denosumab, 1MG Depomedrol Administered Injection Krystle 80MG 014 Tyler Crisostomo Depomedrol Administered Injection Billy 80MG 014 Tyler Cantrell Inj, Administered Injection Carson Anderson Regadenoson, 014 Tyler Hartley 0.1 MG Technetium TC Administered Injection Carson Anderson 99M 014 Tyler Hartley Tetrofosmin, Per Unit Dose Up To 40 Millicuries Depomedrol Administered Injection Lula 80MG 014 JOSE Ferrari Depomedrol Administered Injection Krystle 80MG 013 Tyler Crisostomo Depomedrol Administered Injection Krystle 80MG 013 Tyler Crisostomo Depomedrol Administered Injection Dirk Jordy, 40MG 013 M.DEladio Depomedrol Administered Injection Dirk Jordy, 80MG 012 M.DEladio Immunizations CPT Code Status Date Vaccine Lot # [id number] Given 12/23/2008 Zoster (Zostavax) Vital Signs Date Vital Result Comment 04/23/2017 Height 60 inches 5'0" Weight 182.00 lb BP Systolic 152 mmHg BP Diastolic 86 mmHg Respiratory Rate 16 /min Body Temperature 97.6 F Pain Level 10 BMI (Body Mass Index) 35.5 kg/m2 03/30/2017 Height 60 inches 5'0" Weight 182.00 lb Heart Rate 62 /min BP Systolic Sitting 167 mmHg BP Diastolic Sitting 81 mmHg Respiratory Rate 14 /min BMI (Body Mass Index) 35.5 kg/m2 01/17/2017 Height 60 inches 5'0" Weight 175.00 lb with shoes Heart Rate 62 /min BP Systolic Sitting 152 mmHg Lue lrg cuff BP Diastolic Sitting 86 mmHg Lue lrg cuff BP Systolic Standing 158 mmHg Lue lrg cuff BP Diastolic Standing 92 mmHg Lue lrg cuff Respiratory Rate 16 /min BMI (Body Mass Index) 34.2 kg/m2 Ejection Fraction 68% 05/01/2013-echo 11/21/2016 Height 60 inches 5'0" Weight 181.00 lb w/ shoes Heart Rate 72 /min reg BP Systolic Sitting 160 mmHg Rue, lg cuff BP Diastolic Sitting 100 mmHg Rue, lg cuff Respiratory Rate 16 /min O2 % BldC Oximetry 97 % on Ra BMI (Body Mass Index) 35.3 kg/m2 09/29/2016 Height 60 inches 5'0" Weight 189.00 lb Heart Rate 70 /min BP Systolic Sitting 152 mmHg BP Diastolic Sitting 94 mmHg Respiratory Rate 20 /min O2 % BldC Oximetry 98 % room air BMI (Body Mass Index) 36.9 kg/m2 09/12/2016 Height 60 inches 5'0" Weight 188.00 lb Heart Rate 69 /min BP Systolic Sitting 139 mmHg BP Diastolic Sitting 81 mmHg Body Temperature 98.1 F Pain Level 3 BMI (Body Mass Index) 36.7 kg/m2 08/16/2016 Height 60 inches 5'0" Weight 187.00 lb Heart Rate 66 /min BP Systolic Sitting 154 mmHg BP Diastolic Sitting 89 mmHg Body Temperature 97.2 F Pain Level 10 BMI (Body Mass Index) 36.5 kg/m2 08/08/2016 Height 60 inches 5'0" Weight 192.00 lb Heart Rate 63 /min BP Systolic Sitting 102 mmHg BP Systolic Standing 52 mmHg Respiratory Rate 16 /min Pain Level 0 O2 % BldC Oximetry 98 % BMI (Body Mass Index) 37.5 kg/m2 07/21/2016 Height 60 inches 5'0" Weight 192.50 lb with shoes Heart Rate 60 /min BP Systolic Sitting 150 mmHg Rue lrg cuff BP Diastolic Sitting 86 mmHg Rue lrg cuff BP Systolic Standing 150 mmHg Rue lrg cuff BP Diastolic Standing 82 mmHg Rue lrg cuff Respiratory Rate 17 /min BMI (Body Mass Index) 37.6 kg/m2 Ejection Fraction 68% 05/01/2013-echo 06/14/2016 Height 60 inches 5'0" Weight 190.00 lb with shoes Heart Rate 68 /min BP Systolic Sitting 150 mmHg Lue large cuff BP Diastolic Sitting 92 mmHg Lue large cuff BP Systolic Standing 150 mmHg Lue large cuff BP Diastolic Standing 88 mmHg Lue large cuff Respiratory Rate 16 /min BMI (Body Mass Index) 37.1 kg/m2 Ejection Fraction 68% echo 05/01/13 05/10/2016 Height 60 inches 5'0" Weight 196.00 lb Heart Rate 61 /min BP Systolic 159 mmHg BP Diastolic 90 mmHg Respiratory Rate 12 /min BMI (Body Mass Index) 38.3 kg/m2 05/03/2016 Height 60 inches 5'0" Weight 196.00 lb Heart Rate 69 /min BP Systolic 157 mmHg BP Diastolic 91 mmHg Respiratory Rate 19 /min BMI (Body Mass Index) 38.3 kg/m2 02/28/2016 Weight 197.00 lb Heart Rate 67 /min BP Systolic Sitting 128 mmHg BP Diastolic Sitting 76 mmHg Pain Level 8 O2 % BldC Oximetry 96 % 12/08/2015 Height 59 inches 4'11" Weight 194.00 lb Heart Rate 72 /min BP Systolic Sitting 132 mmHg BP Diastolic Sitting 80 mmHg Respiratory Rate 14 /min Body Temperature 98.1 F Pain Level 6 BMI (Body Mass Index) 39.2 kg/m2 09/07/2015 Height 59 inches 4'11" Weight 197.38 lb Heart Rate 68 /min BP Systolic Sitting 130 mmHg BP Diastolic Sitting 80 mmHg Body Temperature 97.8 F Pain Level 7 BMI (Body Mass Index) 39.9 kg/m2 08/20/2015 Height 60 inches 5'0" Weight 199.00 lb w/ shoes Heart Rate 70 /min reg BP Systolic Sitting 106 mmHg Lue, lg cuff BP Diastolic Sitting 66 mmHg Lue, lg cuff BP Systolic Standing 108 mmHg Lue BP Diastolic Standing 66 mmHg Lue Respiratory Rate 18 /min BMI (Body Mass Index) 38.9 kg/m2 Ejection Fraction 68% as of 05/01/13 echo 07/16/2015 Height 60 inches 5'0" Weight 199.00 lb with shoes Heart Rate 76 /min BP Systolic Sitting 128 mmHg LA lrg cuff BP Diastolic Sitting 70 mmHg LA lrg cuff BP Systolic Standing 130 mmHg LA lrg cuff BP Diastolic Standing 72 mmHg LA lrg cuff Respiratory Rate 18 /min BMI (Body Mass Index) 38.9 kg/m2 Ejection Fraction 68% 05/01/13 05/03/2015 Height 60 inches 5'0" Weight 196.00 lb BMI (Body Mass Index) 38.3 kg/m2 04/19/2015 Height 60 inches 5'0" Weight 196.00 lb Pain Level 7 BMI (Body Mass Index) 38.3 kg/m2 02/15/2015 Height 60 inches 5'0" Weight 196.38 lb Heart Rate 64 /min BP Systolic Sitting 158 mmHg BP Diastolic Sitting 80 mmHg Respiratory Rate 14 /min Pain Level 4 BMI (Body Mass Index) 38.3 kg/m2 02/12/2015 Height 60 inches 5'0" Weight 198.00 lb with shoes Heart Rate 68 /min BP Systolic Sitting 140 mmHg LA lg cuff BP Diastolic Sitting 90 mmHg LA lg cuff BP Systolic Standing 140 mmHg LA lg cuff BP Diastolic Standing 88 mmHg LA lg cuff Respiratory Rate 16 /min BMI (Body Mass Index) 38.7 kg/m2 Ejection Fraction 68% date 05/01/13 ECHO 01/11/2015 Height 60 inches 5'0" Weight 192.00 lb Pain Level 0 BMI (Body Mass Index) 37.5 kg/m2 12/28/2014 Height 60 inches 5'0" Weight 192.00 lb Body Temperature 97.9 F Pain Level 7 left hip BMI (Body Mass Index) 37.5 kg/m2 12/11/2014 Height 60 inches 5'0" Weight 192.50 lb w/ shoes Heart Rate 64 /min BP Systolic Sitting 136 mmHg LA, lg BP Diastolic Sitting 82 mmHg LA, lg BMI (Body Mass Index) 37.6 kg/m2 12/09/2014 Height 60 inches 5'0" Weight 208.00 lb Pain Level 8 BMI (Body Mass Index) 40.6 kg/m2 08/13/2014 Height 60 inches 5'0" Weight 208.12 lb Heart Rate 76 /min BP Systolic Sitting 122 mmHg BP Diastolic Sitting 68 mmHg Respiratory Rate 14 /min Pain Level 7 BMI (Body Mass Index) 40.6 kg/m2 06/29/2014 Height 60 inches 5'0" Weight 213.00 lb Heart Rate 71 /min BMI (Body Mass Index) 41.6 kg/m2 06/15/2014 Height 60 inches 5'0" Weight 213.00 lb Heart Rate 71 /min BP Systolic Sitting 132 mmHg BP Diastolic Sitting 74 mmHg Pain Level 6 BMI (Body Mass Index) 41.6 kg/m2 05/27/2014 Height 60 inches 5'0" Weight 213.00 lb with shoes Heart Rate 72 /min BP Systolic Sitting 122 mmHg LA, Lg cuff BP Diastolic Sitting 76 mmHg LA, Lg cuff BP Systolic Standing 116 mmHg LA BP Diastolic Standing 76 mmHg LA Respiratory Rate 16 /min BMI (Body Mass Index) 41.6 kg/m2 04/23/2014 Height 60 inches 5'0" Weight 204.00 lb Heart Rate 74 /min BP Systolic Sitting 118 mmHg BP Diastolic Sitting 70 mmHg Pain Level 5 BMI (Body Mass Index) 39.8 kg/m2 04/16/2014 Height 60 inches 5'0" Weight 206.00 lb Heart Rate 64 /min BP Systolic Sitting 134 mmHg BP Diastolic Sitting 74 mmHg Pain Level 5 BMI (Body Mass Index) 40.2 kg/m2 04/09/2014 Height 60 inches 5'0" Weight 208.00 lb Pain Level 5 BMI (Body Mass Index) 40.6 kg/m2 02/06/2014 Height 60 inches 5'0" Weight 208.00 lb Heart Rate 62 /min BP Systolic Sitting 140 mmHg BP Diastolic Sitting 98 mmHg Pain Level 0 BMI (Body Mass Index) 40.6 kg/m2 01/28/2014 Height 60 inches 5'0" Weight 296.50 lb Heart Rate 60 /min BP Systolic Sitting 160 mmHg BP Diastolic Sitting 88 mmHg Pain Level 0 BMI (Body Mass Index) 57.9 kg/m2 01/14/2014 Height 60 inches 5'0" Weight 211.75 lb Heart Rate 72 /min BP Systolic Sitting 130 mmHg BP Diastolic Sitting 60 mmHg Pain Level 5 BMI (Body Mass Index) 41.4 kg/m2 12/11/2013 Height 60 inches 5'0" Weight 213.00 lb with shoes Heart Rate 62 /min BP Systolic Sitting 154 mmHg LA, Lg cuff BP Diastolic Sitting 86 mmHg LA, Lg cuff BP Systolic Standing 138 mmHg LA BP Diastolic Standing 84 mmHg LA Respiratory Rate 16 /min BMI (Body Mass Index) 41.6 kg/m2 12/04/2013 Height 60 inches 5'0" Heart Rate 66 /min BP Systolic 148 mmHg BP Diastolic 88 mmHg 12/01/2013 Height 60 inches 5'0" Weight 211.00 lb Heart Rate 68 /min BP Systolic Sitting 140 mmHg BP Diastolic Sitting 70 mmHg Pain Level 5 BMI (Body Mass Index) 41.2 kg/m2 11/13/2013 Height 60 inches 5'0" Weight 216.00 lb Heart Rate 64 /min BP Systolic 160 mmHg BP Diastolic 99 mmHg BMI (Body Mass Index) 42.2 kg/m2 05/27/2013 Height 59 inches 4'11" Weight 220.00 lb with shoes Heart Rate 66 /min BP Systolic Sitting 120 mmHg Ra Lg cuff BP Diastolic Sitting 70 mmHg Ra Lg cuff BP Systolic Standing 134 mmHg Ra Lg cuff BP Diastolic Standing 80 mmHg Ra Lg cuff Respiratory Rate 17 /min BMI (Body Mass Index) 44.4 kg/m2 05/06/2013 Height 59 inches 4'11" Heart Rate 65 /min BP Systolic 185 mmHg BP Diastolic 100 mmHg 04/29/2013 Height 59.5 inches 4'11.50" Weight 217.00 lb Heart Rate 70 /min BP Systolic Sitting 138 mmHg left arm, large cuff BP Diastolic Sitting 86 mmHg left arm, large cuff BP Systolic Standing 132 mmHg left arm, large cuff BP Diastolic Standing 82 mmHg left arm, large cuff Respiratory Rate 20 /min BMI (Body Mass Index) 43.1 kg/m2 10/03/2010 Body Temperature 98.7 F 11/01/2009 Weight 226.00 lb Heart Rate 58 /min BP Systolic Sitting 128 mmHg BP Diastolic Sitting 80 mmHg 10/22/2009 Weight 269.00 lb BP Systolic Sitting 132 mmHg BP Diastolic Sitting 82 mmHg 10/14/2009 Weight 228.00 lb Heart Rate 82 /min BP Systolic Sitting 130 mmHg BP Diastolic Sitting 70 mmHg 07/09/2009 Weight 224.00 lb Heart Rate 80 /min BP Systolic Sitting 110 mmHg BP Diastolic Sitting 70 mmHg Body Temperature 98.4 F 05/04/2009 Height 61 inches 5'1" Weight 228.25 lb Heart Rate 60 /min BP Systolic Sitting 130 mmHg BP Diastolic Sitting 86 mmHg BMI (Body Mass Index) 43.1 kg/m2 03/22/2009 Height 61 inches 5'1" Weight 231.00 lb Heart Rate 56 /min BP Systolic Sitting 132 mmHg BP Diastolic Sitting 82 mmHg BMI (Body Mass Index) 43.6 kg/m2 01/20/2009 Height 61 inches 5'1" Weight 237.50 lb Heart Rate 58 /min BP Systolic Sitting 142 mmHg BP Diastolic Sitting 77 mmHg Body Temperature 98.4 F BMI (Body Mass Index) 44.9 kg/m2 01/08/2009 Height 61 inches 5'1" Weight 237.25 lb Heart Rate 54 /min BP Systolic Sitting 117 mmHg BP Diastolic Sitting 74 mmHg Body Temperature 98.1 F BMI (Body Mass Index) 44.8 kg/m2 12/16/2008 Height 61 inches 5'1" Weight 239.25 lb Heart Rate 70 /min BP Systolic Sitting 91 mmHg BP Diastolic Sitting 61 mmHg BMI (Body Mass Index) 45.2 kg/m2 Results Test Date Test Result H/L Range Note Laboratory test finding 03/22/2016 Vitamin D Total 25(Oh) 40.0 ng/mL 30- 50 1, 2 Comp Metabolic Panel 03/22/2016 Sodium 137 mmol/L 133-145 1 Potassium 3.8 mmol/L 3.5-5.0 1 Chloride 98 mmol/L Low 101-111 1 Co2 Carbon Dioxide 33 mmol/L High 22-32 1 Anion Gap 6 mmol/L 2-11 1 Glucose 87 mg/dL 70-100 1 Blood Urea Nitrogen 34 mg/dL High 6-24 1 Creatinine 1.60 mg/dL High 0.51-0.95 1 BUN/Creatinine Ratio 21.3 High 8-20 1 Calcium 9.9 mg/dL 8.6-10.3 1 Total Protein 7.3 g/dL 6.4-8.9 1 Albumin 4.0 g/dL 3.2-5.2 1 Globulin 3.3 g/dL 2-4 1 Albumin/Globulin Ratio 1.2 1-3 1 Total Bilirubin 0.70 mg/dL 0.2-1.0 1 Alkaline Phosphatase 65 U/L 34-104 1 Alt 5 U/L Low 7-52 1 Ast 13 U/L 13-39 1 Egfr Non- 31.2 >60 1 Egfr 40.1 >60 1, 3 Pthi 03/22/2016 Calcium (PTH Intact) 9.9 mg/dL 8.6-10.3 1 PTH Intact 4.2 pmol/L 1.3-9.3 1 Laboratory test finding 03/22/2016 Vitamin D, 1,25 43 pg/mL 18-78 1, 4 Dihydroxy Laboratory test finding 12/15/2015 Vitamin D Total 25(Oh) 38.1 ng/mL 30- 50 5 Pthi 12/15/2015 Calcium (PTH Intact) 9.8 mg/dL 8.6-10.3 PTH Intact 4.3 pmol/L 1.3-9.3 Comp Metabolic Panel 12/15/2015 Sodium 138 mmol/L 133-145 Potassium 3.9 mmol/L 3.5-5.0 Chloride 101 mmol/L 101-111 Co2 Carbon Dioxide 31 mmol/L 22-32 Anion Gap 6 mmol/L 2-11 Glucose 83 mg/dL 70-100 Blood Urea Nitrogen 30 mg/dL High 6-24 Creatinine 1.59 mg/dL High 0.51-0.95 BUN/Creatinine Ratio 18.9 8-20 Calcium 9.7 mg/dL 8.6-10.3 Total Protein 7.3 g/dL 6.4-8.9 Albumin 4.0 g/dL 3.2-5.2 Globulin 3.3 g/dL 2-4 Albumin/Globulin Ratio 1.2 1-3 Total Bilirubin 0.50 mg/dL 0.2-1.0 Alkaline Phosphatase 59 U/L 34-104 Alt 8 U/L 7-52 Ast 16 U/L 13-39 Egfr Non- 31.4 >60 Egfr 40.4 >60 6 CMP Panel 09/03/2015 Sodium 136 mmol/L 133-145 Potassium 3.6 mmol/L 3.5-5.0 Chloride 101 mmol/L 101-111 Co2 Carbon Dioxide 27 mmol/L 22-32 Anion Gap 8 mmol/L 2-11 Glucose 87 mg/dL 70-100 Blood Urea Nitrogen 26 mg/dL High 6-24 Creatinine 1.31 mg/dL High 0.51-0.95 BUN/Creatinine Ratio 19.8 8-20 Calcium 9.9 mg/dL 8.6-10.3 Total Protein 7.6 g/dL 6.4-8.9 Albumin 4.3 g/dL 3.2-5.2 Globulin 3.3 g/dL 2-4 Albumin/Globulin Ratio 1.3 1-3 Total Bilirubin 0.40 mg/dL 0.2-1.0 Alkaline Phosphatase 75 U/L 34-104 Alt 7 U/L 7-52 Ast 15 U/L 13-39 Egfr Non- 39.3 >60 Egfr 50.5 >60 7 Laboratory test finding 09/03/2015 Vitamin D Total 25(Oh) 29.0 ng/mL Low 30-50 Vitamin D, 1,25 Dihydroxy 53 pg/mL 18-78 8 Phosphorus 3.5 mg/dL 2.5-5.0 Calcium Ionized 4.77 mg/dL 4.65-5.28 PTH, Intact 09/03/2015 Calcium (PTH Intact) 9.8 mg/dL 8.6-10.3 PTH Intact 8.3 pmol/L 1.3-9.3 Hemoglobin/Hematacrit 01/18/2015 Hemoglobin 8.0 g/dL Low 12.0-16.0 Hematocrit 25 % Low 35-47 CBC Auto Diff 05/06/2014 White Blood Count 7.2 10^3/uL 4.8-10.8 Red Blood Count 4.22 10^6/uL 4.0-5.4 Hemoglobin 11.8 g/dL Low 12.0-16.0 Hematocrit 37 % 35-47 Mean Corpuscular Volume 88 fL 80-97 Mean Corpuscular Hemoglobin 28 pg 27-31 Mean Corpuscular HGB Conc 32 g/dL 31-36 Red Cell Distribution Width 17 % High 10.5-15 Platelet Count 200 10^3/uL 150-450 Mean Platelet Volume 8 um3 7.4-10.4 Abs Neutrophils 4.7 10^3/uL 1.5-7.7 Abs Lymphocytes 1.8 10^3/uL 1.0-4.8 Abs Monocytes 0.5 10^3/uL 0-0.8 Abs Eosinophils 0.2 10^3/uL 0-0.6 Abs Basophils 0 10^3/uL 0-0.2 Abs Nucleated RBC 0 10^3/uL Granulocyte % 64.6 % 38-83 Lymphocyte % 24.4 % Low 25-47 Monocyte % 7.4 % 1-9 Eosinophil % 3.0 % 0-6 Basophil % 0.6 % 0-2 Nucleated Red Blood Cells % 0 Comp Metabolic Panel 05/06/2014 Sodium 139 mmol/L 133-145 Potassium 4.1 mmol/L 3.5-5.0 Chloride 102 mmol/L 101-111 Co2 Carbon Dioxide 32 mmol/L 22-32 Anion Gap 5 mmol/L 2-11 Glucose 81 mg/dL 70-100 Blood Urea Nitrogen 27 mg/dL High 6-24 Creatinine 1.39 mg/dL High 0.51-0.95 BUN/Creatinine Ratio 19.4 8-20 Calcium 9.1 mg/dL 8.6-10.3 Total Protein 7.0 g/dL 6.4-8.9 Albumin 4.0 g/dL 3.2-5.2 Globulin 3.0 g/dL 2-4 Albumin/Globulin Ratio 1.3 1-3 Total Bilirubin 0.50 mg/dL 0.2-1.0 Alkaline Phosphatase 65 U/L 34-104 Alt 6 U/L Low 7-52 Ast 15 U/L 13-39 Egfr Non- 36.9 >60 Egfr 47.4 >60 9 Laboratory test finding 05/06/2014 C Reactive Protein 4.35 mg/L < 5.00 10 Erythrocyte Sed Rate 45 mm/Hr High 0-40 Urinalysis Profile 03/09/2014 Urine Color Yellow Urine Appearance Cloudy Urine Specific [place] 1.013 1.010-1.030 Urine pH 8.0 5-9 Urine Urobilinogen Negative Negative Urine Ketones Negative Negative Urine Protein Negative Negative Urine Leukocytes 2+ Negative Urine Blood 2+ Negative Urine Nitrite Positive Negative Urine Bilirubin Negative Negative Urine Glucose Negative Negative Urine White Blood Cell 3+(>20/hpf) Absent Urine Red Blood Cell Trace Absent Urine Bacteria 2+ Absent Urine Squamous Epithelial Cell Present Absent Urine Triple Phosphate Cryst Present Absent Urine Amorphous Crystals Present Absent Urine Culture And Sensitivities 03/09/2014 Urine Culture (SEE NOTE) 11 Vitamin D, 25 Hydroxy 12/29/2013 25-Hydroxy Vitamin D2 <4.0 ng/mL 25-Hydroxy Vitamin D3 29 ng/mL 25-Hydroxy Vitamin D Total 29 ng/mL 12 Pthi 12/29/2013 PTH Intact 14.6 pmol/L High 1.3-9.3 Calcium (PTH Intact) 9.2 mg/dL 8.6-10.3 Protein Electrophoresis 12/29/2013 Total Protein(Pep) 7.8 g/dL 6.3 - 7.9 Albumin 3.6 g/dL 3.4-4.7 Alpha-1 Globulin 0.3 g/dL 0.1-0.3 Alpha-2 Globulin 1.1 g/dL 0.6-1.0 Beta Globulin 1.1 g/dL 0.7-1.2 Gamma Globulin 1.8 g/dL 0.6-1.6 Albumin/Globulin Ratio 0.84 Impression See Comment 13 RBC Leukoreduced 09/22/2010 RBC Leukoreduced [id number] O <SEE NOTE& gt; 14 Patient Blood Type O POSITIVE Antibody Screen NEGATIVE Laboratory test finding 09/22/2010 Release Date 09/25/10 15 Hemoglobin/Hematacrit 09/21/2010 Hemoglobin 10.0 g/dL Low 12.0-16.0 Hematocrit 30 % Low 35-47 Basic Metabolic Panel 09/21/2010 Sodium 138 mmol/L 135-145 Potassium 3.8 mmol/L 3.5-5.0 Chloride 98 mmol/L Low 101-111 Co2 (Carbon Dioxide) 34.0 mmol/L High 22-32 Anion Gap 6.0 mmol/L 2-11 16 Glucose 107 mg/dL High 70-100 BUN 17 mg/dL 6-24 Creatinine 1.00 mg/dL 0.50-1.40 One Over Creatinine 1.00 BUN/Creatinine Ratio 17.0 8-20 Calcium 8.0 mg/dL Low 8.1-9.9 eGFR Non- 54.3 > 60 eGFR 69.9 > 60 17 Urinalysis W/Microscopic 09/12/2010 Ua Color YELLOW Yellow 18 Appearance-Urine CLOUDY Clear 18 Specific Huntley-Ur 1.024 1.010-1.030 18 Esterase-Urine 3+ Negative 18 Nitrite NEGATIVE Negative 18 Kfqzzqajxyqu-Oi-VTS NEGATIVE Negative 18 Protein-Urine 1+ Negative 18 PH-Urine 6.0 5-9 18 Blood-Urine 3+ Negative 18 Ketones-Urine NEGATIVE Negative 18 Bilirubin-Ur NEGATIVE Negative 18 Glucose-Urine NEGATIVE Negative 18 WBC-Urine TNTC 0-5 18 RBC-Urine 2-5 0-2 18 Epith Cells-Ur FEW None 18 Bacteria-Urine 4+ None 18 Protime 09/12/2010 Inr 0.94 0.82-1.17 18, 19 Protime 11.1 SEC 10.2-14.8 18, 20 Laboratory test finding 09/12/2010 PTT (Aptt) 29.6 25.15-38.53 18 Type And Screen (Pre-Adm) 09/12/2010 Patient Blood Type O POSITIVE 18 Antibody Screen NEGATIVE 18 Specimen Discard Date 09/26/10 18, 21 RBC Leukoreduced [id number] O <SEE NOTE> 18, 22 RBC Leukoreduced [id number] O <SEE NOTE> 18, 23 Basic Metabolic Panel 09/12/2010 Sodium 138 mmol/L 135-145 18 Potassium 3.6 mmol/L 3.5-5.0 18 Chloride 101 mmol/L 101-111 18 Co2 (Carbon Dioxide) 29.0 mmol/L 22-32 18 Anion Gap 8.0 mmol/L 2-11 18, 24 Glucose 98 mg/dL 70-100 18 BUN 27 mg/dL High 6-24 18 Creatinine 0.87 mg/dL 0.50-1.40 18 One Over Creatinine 1.10 18 BUN/Creatinine Ratio 31.0 High 8-20 18 Calcium 9.5 mg/dL 8.1-9.9 18 eGFR Non- 63.8 > 60 18 eGFR 82.1 > 60 18, 25 Laboratory test finding 09/12/2010 C Reactive Protein 1.7 mg/dL High Less Than 0.5 18 CBC Auto Diff 09/12/2010 White Blood Count 10.8 CUMM 4.8-10.8 18 Red Cell Count 3.92 CUMM Low 4.2-5.4 18 Hemoglobin 11.6 g/dL Low 12.0-16.0 18 Hematocrit 36 % 35-47 18 Mean Corpuscular Volume 91 um3 79-97 18 Mean Corpuscular Hemoglob 29 pg 27-31 18 Mean Corpuscular HGB Cone 32 g/dL 32-36 18 Redcell Distribution WDTH 15 % 10.5-15 18 Platelet Count 294 CUMM 150-450 18 Mean Platelet Volume 7.8 um3 7.4-10.4 18, 26 Manual Differential 09/12/2010 Polysegmented Neutrophil 76 % 38-83 18 Lymphocyte 20 % Low 25-47 18 Monocyte 3 % 0-13 18 Eosinophil 1 % 0-6 18 Absolute Neutrophil Count 8.2 18 Anisocytosis SLIGHT 18 Stomatocytes 1+ 18 Laboratory test 09/12/2010 Erythrocyte Sed 67 MM/HR High 0-40 18 finding Rate Urine Culture & 09/12/2010 Urine Culture ESCHERICHIA COLI 18, 27 Sensitivi Sensitivi Sensitivities For 09/12/2010 Ampicillin >=32 18 Urine Culture Amikacin <=2 18 Ciprofloxacin >=4 18 Ceftriaxone <=1 18 Cefazolin <=4 18 Nitrofurantoin <=16 18 Gentamicin <=1 18 Imipenem <=1 18 Levofloxacin 4 18 Trimeth-Sulfa >=320 18 Ceftazidime <=1 18 Tigecycline <=0.5 18 Piperacillin/Tazobactam KB 30 18 Laboratory test finding 09/12/2010 Release Date 09/23/10 18, 28 CBC With Manual Diff 10/22/2009 White Blood Count 8.3 CUMM 4.8-10.8 Red Cell Count 4.52 CUMM 4.2-5.4 Hemoglobin 13.4 g/dL 12.0-16.0 Hematocrit 40 % 35-47 Mean Corpuscular Volume 89 um3 79-97 Mean Corpuscular Hemoglob 30 pg 27-31 Mean Corpuscular HGB Cone 33 g/dL 32-36 Redcell Distribution WDTH 14 % 10.5-15 Platelet Count 335 CUMM 150-450 Mean Platelet Volume 6.9 um3 Low 7.4-10.4 Polysegmented Neutrophil 62 % 38-83 Lymphocyte 28 % 25-47 Monocyte 7 % 0-13 Eosinophil 3 % 0-6 Absolute Neutrophil Count 5.1 RBC Morphology NORMAL Comp Metabolic Panel 10/22/2009 Sodium 138 mmol/L 135-145 Potassium 4.9 mmol/L 3.5-5.0 Chloride 104 mmol/L 101-111 Co2 (Carbon Dioxide) 27.0 mmol/L 22-32 Anion Gap 7.0 mmol/L 2-11 29 Glucose 84 mg/dL 70-100 30 BUN 38 mg/dL High 6-24 Creatinine 1.40 mg/dL 0.50-1.40 One Over Creatinine 0.70 BUN/Creatinine Ratio 27.1 High 8-20 Calcium 9.5 mg/dL 8.1-9.9 31 Total Protein 8.1 GM/DL 6.2-8.1 Albumin 4.4 GM/DL 3.2-5.2 Globulin 3.7 GM/DL 2-4 Albumin/Globulin Ratio 1.2 1-3 Bilirubin Total 0.7 mg/dL 0.4-1.5 32 Alkaline Phosphatase 93 U/L 30-110 Alt (SGPT) 10 U/L Low 14-54 Ast (Sgot) 15 U/L 12-42 eGFR Non- 39.3 > 60 eGFR 47.5 > 60 33 Laboratory test finding 10/22/2009 TSH 2.82 MIU/ML 0.34-5.60 Lipid Profile (Trig/Chol/HDL) 10/22/2009 Triglyceride 160 mg/dL 40-200 Cholesterol 167 mg/dL Less Than 200 34 High Density Lipoprotein 57 mg/dL 40-60 35 Cholesterol/HDL Ratio 2.93 AVERAGE 1-4.44 Low Density Lipoprotein 78 mg/dL Less Than 100 36 Laboratory test finding 07/09/2009 Hemoglobin A1c 5.8 5-7 Urine Culture & 07/09/2009 Urine Culture Sensitivi NG 37 Sensitivi Urinalysis W/Microscopic 07/09/2009 Ua Color YELLOW Yellow Appearance-Urine CLEAR Clear Specific [place]-Ur 1.017 1.010-1.030 Esterase-Urine 1+ Negative Nitrite NEGATIVE Negative Yumlxktetysn-Vf-KVF NEGATIVE Negative Protein-Urine NEGATIVE Negative PH-Urine 6.0 5-9 Blood-Urine 2+ Negative Ketones-Urine NEGATIVE Negative Bilirubin-Ur NEGATIVE Negative Glucose-Urine NEGATIVE Negative WBC-Urine 0-2 0-5 RBC-Urine 0-2 0-2 Epith Cells-Ur FEW None Ua Comments (SEE NOTE) 38 Urinalysis W/Microscopic 05/22/2009 Ua Color RED Yellow Appearance-Urine TURBID Clear Specific [place]-Ur 1.007 Low 1.010-1.030 Esterase-Urine 3+ Negative Nitrite POSITIVE Negative Hrtxbjeyyxxx-Me-GSY NEGATIVE Negative Protein-Urine 3+ Negative PH-Urine 6.0 5-9 Blood-Urine 3+ Negative Ketones-Urine 1+ Negative Bilirubin-Ur SEE ICTOTEST Negative Glucose-Urine NEGATIVE Negative WBC-Urine TNTC 0-5 RBC-Urine 3-5 0-2 Mucus Urine SMALL None Epith Cells-Ur FEW None Bacteria-Urine 3+ None Laboratory test finding 05/22/2009 Ictotest-Urine NEGATIVE 39 Urine Culture & 05/22/2009 Urine Culture Sensitivi SN1 40 Sensitivi MRSA/Vre Screen 05/02/2009 MRSA/Vre Culture NFICU 41 CBC With Manual Diff 05/01/2009 White Blood Count 9.0 CUMM 4.8-10.8 Red Cell Count 4.47 CUMM 4.2-5.4 Hemoglobin 12.9 g/dL 12.0-16.0 Hematocrit 40 % 35-47 Mean Corpuscular Volume 89 um3 79-97 Mean Corpuscular Hemoglob 29 pg 27-31 Mean Corpuscular HGB Cone 32 g/dL 32-36 Redcell Distribution WDTH 13 % 10.5-15 Platelet Count 269 CUMM 150-450 Mean Platelet Volume 7.4 um3 7.4-10.4 Polysegmented Neutrophil 66 % 38-83 Lymphocyte 26 % 25-47 Monocyte 4 % 0-13 Eosenophil 2 % 0-6 Atypical Lymph 2 % 0-6 Absolute Neutrophil Count 5.9 Anisocytosis SLIGHT CMP Panel Stat 05/01/2009 Sodium 138 mmol/L 135-145 Potassium 3.9 mmol/L 3.5-5.0 Chloride 101 mmol/L 101-111 Co2 (Carbon Dioxide) 29.0 mmol/L 22-32 Anion Gap 8.0 mmol/L 2-11 42 Glucose 102 mg/dL High 70-100 43 BUN 21 mg/dL 6-24 Creatinine 1.20 mg/dL 0.50-1.40 One Over Creatinine 0.80 BUN/Creatinine Ratio 17.5 8-20 Calcium 9.4 mg/dL 8.1-9.9 44 Total Protein 7.6 GM/DL 6.2-8.1 Albumin 3.8 GM/DL 3.2-5.2 Globulin 3.8 GM/DL 2-4 Albumin/Globulin Ratio 1.0 1-3 Bilirubin Total 0.6 mg/dL 0.4-1.5 45 Alkaline Phosphatase 86 U/L 30-110 Alt (SGPT) 11 U/L Low 14-54 Ast (Sgot) 21 U/L 12-42 eGFR Non- 47.1 > 60 eGFR 57.0 > 60 46 Laboratory test finding 05/01/2009 Troponin-I (TnI) 0.04 NG/ML 47 Laboratory test finding 04/29/2009 D Dimer Quantitative < 200 Less Than 230 BNP Evaluatr 37.0 pg/mL 0-100 PTT (Aptt) Stat 04/29/2009 PTT (Aptt) 32.5 25.15-38.53 48 Protime Stat 04/29/2009 Inr 0.97 0.97-1.03 49 Protime 11.4 SEC Low 11.5-12.2 50 Laboratory test finding 04/29/2009 Lipase 25 U/L 22-51 Magnesium Stat 04/29/2009 Magnesium 2.1 mg/dL 1.7-2.6 Laboratory test finding 04/29/2009 Troponin-I (TnI) 0.02 NG/ML 51 Amylase Stat 04/29/2009 Amylase 52 U/L 30-125 CBC With Electronic Diff 04/29/2009 White Blood Count 8.2 CUMM 4.8-10.8 Red Cell Count 4.76 CUMM 4.2-5.4 Hemoglobin 13.9 g/dL 12.0-16.0 Hematocrit 42 % 35-47 Mean Corpuscular Volume 89 um3 79-97 Mean Corpuscular Hemoglob 29 pg 27-31 Mean Corpuscular HGB Cone 33 g/dL 32-36 Redcell Distribution WDTH 13 % 10.5-15 Platelet Count 283 CUMM 150-450 Mean Platelet Volume 7.2 um3 Low 7.4-10.4 Gran % 69.8 % 38-83 Lymph % 21.5 % Low 25-47 Mononuclear % 6.3 % 1-9 Eosinophil % 1.9 % 0-6 Basophil % 0.5 % 0-2 Abs Lymphs 1.8 1.0-4.8 Abs Mononuclear 0.5 0-0.8 Absolute Neutrophil Count 5.7 1.5-7.7 Abs Eosinophils 0.2 0-0.6 Abs Basophils 0 0-0.2 52 Comp Metabolic Panel 04/29/2009 Sodium 137 mmol/L 135-145 Potassium 3.2 mmol/L Low 3.5-5.0 Chloride 98 mmol/L Low 101-111 Co2 (Carbon Dioxide) 31.0 mmol/L 22-32 Anion Gap 8.0 mmol/L 2-11 53 Glucose 91 mg/dL 70-100 54 BUN 20 mg/dL 6-24 Creatinine 1.13 mg/dL 0.50-1.40 One Over Creatinine 0.80 BUN/Creatinine Ratio 17.7 8-20 Calcium 9.5 mg/dL 8.1-9.9 55 Total Protein 6.1 GM/DL Low 6.2-8.1 Albumin 4.1 GM/DL 3.2-5.2 Globulin 2.0 GM/DL 2-4 Albumin/Globulin Ratio 2.1 1-3 Bilirubin Total 0.9 mg/dL 0.4-1.5 56 Alkaline Phosphatase 82 U/L 30-110 Alt (SGPT) 13 U/L Low 14-54 Ast (Sgot) 22 U/L 12-42 eGFR Non- 50.4 > 60 eGFR 61.0 > 60 57 Surgical Pathology 01/22/2009 Surgical Pathology <SEE 58 NOTE> CBC With Electronic 01/04/2009 White Blood Count 9.2 CUMM 4.8-10.8 Diff Stat Red Cell Count 4.44 CUMM 4.2-5.4 Hemoglobin 12.6 g/dL 12.0-16.0 Hematocrit 39 % 35-47 Mean Corpuscular Volume 87 um3 79-97 Mean Corpuscular Hemoglob 28 pg 27-31 Mean Corpuscular HGB Cone 33 g/dL 32-36 Redcell Distribution WDTH 13 % 10.5-15 Platelet Count 255 CUMM 150-450 Mean Platelet Volume 7.6 um3 7.4-10.4 Gran % 70.2 % 38-83 Lymph % 19.0 % Low 25-47 Mononuclear % 6.5 % 1-9 Eosinophil % 3.8 % 0-6 Basophil % 0.5 % 0-2 Abs Lymphs 1.8 1.0-4.8 Abs Mononuclear 0.6 0-0.8 Absolute Neutrophil Count 6.4 1.5-7.7 Abs Eosinophils 0.4 0-0.6 Abs Basophils 0 0-0.2 CMP Panel Stat 01/04/2009 Sodium 136 mmol/L 135-145 Potassium 3.7 mmol/L 3.5-5.0 Chloride 97 mmol/L Low 101-111 Co2 (Carbon Dioxide) 29.0 mmol/L 22-32 Anion Gap 10.0 mmol/L 2-11 59 Glucose 96 mg/dL 70-100 60 BUN 30 mg/dL High 6-24 Creatinine 1.40 mg/dL 0.50-1.40 One Over Creatinine 0.70 BUN/Creatinine Ratio 21.4 High 8-20 Calcium 8.9 mg/dL 8.1-9.9 61 Total Protein 7.4 GM/DL 6.2-8.1 Albumin 3.7 GM/DL 3.2-5.2 Globulin 3.7 GM/DL 2-4 Albumin/Globulin Ratio 1.0 1-3 Bilirubin Total 0.5 mg/dL 0.4-1.5 62 Alkaline Phosphatase 87 U/L 30-110 Alt (SGPT) 12 U/L Low 14-54 Ast (Sgot) 18 U/L 12-42 eGFR Non- 39.4 > 60 eGFR 47.7 > 60 63 Magnesium Stat 01/04/2009 Magnesium 2.3 mg/dL 1.7-2.6 Laboratory test finding 01/04/2009 Troponin-I (TnI) 0.02 NG/ML 64 Protime Stat 01/04/2009 Inr 0.99 0.86-1.13 65 Protime 12.1 SEC 10.7-13.6 66 PTT (Aptt) Stat 01/04/2009 PTT (Aptt) 28.2 25.15-38.53 67 CBC With Manual Diff 01/01/2009 White Blood Count 15.4 CUMM High 4.8-10.8 Red Cell Count 4.71 CUMM 4.2-5.4 Hemoglobin 13.3 g/dL 12.0-16.0 Hematocrit 41 % 35-47 Mean Corpuscular Volume 87 um3 79-97 Mean Corpuscular Hemoglob 28 pg 27-31 Mean Corpuscular HGB Cone 33 g/dL 32-36 Redcell Distribution WDTH 14 % 10.5-15 Platelet Count 288 CUMM 150-450 Mean Platelet Volume 7.8 um3 7.4-10.4 Polysegmented Neutrophil 76 % 38-83 Band Neutrophil 6 % 0-8 Lymphocyte 10 % Low 25-47 Monocyte 5 % 0-13 Eosenophil 2 % 0-6 Basophil 1 % 0-2 Absolute Neutrophil Count 12.6 RBC Morphology NORMAL Comp Metabolic Panel 01/01/2009 Sodium 139 mmol/L 135-145 Potassium 4.0 mmol/L 3.5-5.0 Chloride 102 mmol/L 101-111 Co2 (Carbon Dioxide) 28.0 mmol/L 22-32 Anion Gap 9.0 mmol/L 2-11 68 Glucose 79 mg/dL 70-100 69 BUN 21 mg/dL 6-24 Creatinine 1.20 mg/dL 0.50-1.40 One Over Creatinine 0.80 BUN/Creatinine Ratio 17.5 8-20 Calcium 9.5 mg/dL 8.1-9.9 70 Total Protein 7.6 GM/DL 6.2-8.1 Albumin 3.8 GM/DL 3.2-5.2 Globulin 3.8 GM/DL 2-4 Albumin/Globulin Ratio 1.0 1-3 Bilirubin Total 0.6 mg/dL 0.4-1.5 71 Alkaline Phosphatase 96 U/L 30-110 Alt (SGPT) 14 U/L 14-54 Ast (Sgot) 18 U/L 12-42 eGFR Non- 47.1 > 60 eGFR 57.0 > 60 72 Lipid Profile (Trig/Chol/HDL) 01/01/2009 Triglyceride 64 mg/dL 40-200 Cholesterol 174 mg/dL Less Than 200 73 High Density Lipoprotein 70 mg/dL High 40-60 74 Cholesterol/HDL Ratio 2.49 AVERAGE 1-4.44 Low Density Lipoprotein 91 mg/dL Less Than 100 75 Urine Microalbumin Random 01/01/2009 Microalbumin (MG/L) 40.0 mg/L Urine Creatinine 138.18 mg/dL F[place] Alb/Creatinine Ratio 28.9 UG/MG Less Than 30 76 Laboratory test finding 01/01/2009 Hemoglobin A1c 6.4 % High Less Than 6.0 77 1 normal vit D level. May have Prolia injection. 2 PRN VALID 12/08/15-06/06/16 CC: DR. PALAFOX, DR. HARTLEY, DR. SILVA 3 Because ethnic data is not always readily available, this report includes an eGFR for both -Americans and non- Americans. The National Kidney Disease Education Program (NKDEP) does not endorse the use of the MDRD equation for patients that are not between the ages of 18 and 70, are , have extremes of body size, muscle mass, or nutritional status, or are non- or non-. According to the National Kidney Foundation, irrespective of diagnosis, the stage of the disease is based on the level of kidney function: Stage Description GFR(mL/min/1.73 m(2)) 1 Kidney damage with normal or decreased GFR 90 2 Kidney damage with mild decrease in GFR 60-89 3 Moderate decrease in GFR 30-59 4 Severe decrease in GFR 15-29 5 Kidney failure <15 (or dialysis) 4 ADDITIONAL INFORMATION This test was developed and its performance characteristics determined by [facility] in a manner consistent with CLIA requirements. This test has not been cleared or approved by the U.S. Food and Drug Administration. Test Performed by: [facility] - [address] [address] Jacket Preparer: Yayo G. Morice, II, M.D., Ph.D. 5 standing order 6 Because ethnic data is not always readily available, this report includes an eGFR for both -Americans and non- Americans. The National Kidney Disease Education Program (NKDEP) does not endorse the use of the MDRD equation for patients that are not between the ages of 18 and 70, are , have extremes of body size, muscle mass, or nutritional status, or are non- or non-. According to the National Kidney Foundation, irrespective of diagnosis, the stage of the disease is based on the level of kidney function: Stage Description GFR(mL/min/1.73 m(2)) 1 Kidney damage with normal or decreased GFR 90 2 Kidney damage with mild decrease in GFR 60-89 3 Moderate decrease in GFR 30-59 4 Severe decrease in GFR 15-29 5 Kidney failure <15 (or dialysis) 7 Because ethnic data is not always readily available, this report includes an eGFR for both -Americans and non- Americans. The National Kidney Disease Education Program (NKDEP) does not endorse the use of the MDRD equation for patients that are not between the ages of 18 and 70, are , have extremes of body size, muscle mass, or nutritional status, or are non- or non-. According to the National Kidney Foundation, irrespective of diagnosis, the stage of the disease is based on the level of kidney function: Stage Description GFR(mL/min/1.73 m(2)) 1 Kidney damage with normal or decreased GFR 90 2 Kidney damage with mild decrease in GFR 60-89 3 Moderate decrease in GFR 30-59 4 Severe decrease in GFR 15-29 5 Kidney failure <15 (or dialysis) 8 Test Performed by: [place] [address] Jacket Preparer: Yayo Harding II, M.D., Ph.D. 9 Because ethnic data is not always readily available, this report includes an eGFR for both -Americans and non- Americans. The National Kidney Disease Education Program (NKDEP) does not endorse the use of the MDRD equation for patients that are not between the ages of 18 and 70, are , have extremes of body size, muscle mass, or nutritional status, or are non- or non-. According to the National Kidney Foundation, irrespective of diagnosis, the stage of the disease is based on the level of kidney function: Stage Description GFR(mL/min/1.73 m(2)) 1 Kidney damage with normal or decreased GFR 90 2 Kidney damage with mild decrease in GFR 60-89 3 Moderate decrease in GFR 30-59 4 Severe decrease in GFR 15-29 5 Kidney failure <15 (or dialysis) 10 Acute inflammation: >10.00 11 RUN DATE: 03/11/14 [facility] LAB LIVE PAGE 1 RUN TIME: [address] [place] [id number] Specimen Inquiry Name: NERIS PERDOMO : [address]: Anam Barroso MD Acct: [id number] Unit: [id number] AGE: 78 Location: LAB Re03/09/14 SEX: F Status: REG REF SPEC: [id number] HELLEN: 03/09/14-[address] [facility] [address]: Anam Barroso MD PC REQ: [id number] RECD: 03/09/14-1341 STATUS: WILL GREWAL DR: Norbert Kidd MD _ SOURCE: URINE SPDESC: ORDERED: Urine Culture QUERIES: Medent Number [id number] Procedure Result Verified Site Urine Culture Final 03/11/14- 1108 ML Organism 1 NORMAL RONAL Pinon Count >100,000 (Many) CFU/ML END OF REPORT * ML=Testing performed at Main Lab DEPARTMENT OF PATHOLOGY, [address] [place] [address] hCase Moore M.D. Director [facility] # [id number] 12 REFERENCE VALUE 25-HYDROXY D TOTAL (D2+D3) Optimum levels in the healthy population are 20-50, patients with bone disease may benefit from higher levels within this range. Test Performed by: [address] [address] Jacket Preparer: Saran Lomax M.D. 13 RESULT: Polyclonal hypergammaglobulinemia Test Performed by: [facility] [address] [address] Jacket Preparer: Saran Lomax M.D. 14 [id number] OP PC TRANSFUSED 09/22/10 1356 15 ANY BLOOD NOT GIVEN WILL BE RELEASED AT 0700 ON THE ABOVE DATE UNLESS DOCTOR NOTIFIES LAB OTHERWISE. 16 Anion gap measurement may be of limited value in the presence of any alkalosis, especially in a combined acid base disorder. . 17 Because ethnic data is not always readily available, this report includes an eGFR for both -Americans and non- Americans. The National Kidney Disease Education Program (NKDEP) does not endorse the use of the MDRD equation for patients that are not between the ages of 18 and 70, are , have extremes of body size, muscle mass, or nutritional status, or are non- or non-. According to the National Kidney Foundation, irrespective of diagnosis, the stage of the disease is based on the level of kidney function: Stage Description GFR(mL/min/1.73 m(2)) 1 Kidney damage with normal or decreased GFR 90 2 Kidney damage with mild decrease in GFR 60-89 3 Moderate decrease in GFR 30-59 4 Severe decrease in GFR 15-29 5 Kidney failure <15 (or dialysis) 18 AA 09/20/10 19 Recommended INR for Patients on Oral Anticoagulants Prophylaxis 2.0 - 3.0 Treatment of thrombosis 2.0 - 3.0 Prevention of embolism 2.0 - 3.0 Prevention of embolism from prosthetic heart valves 2.5 - 3.5 20 DIAGNOSIS,TREATMENT,AND THERAPY MUST BE BASED ON THE INR VALUE ALONE. 21 PREADMISSION TESTING SAMPLES FOR BLOOD BANK WILL BE HELD FOR 14 DAYS FROM THE DATE OF COLLECTION *IF* THE FOLLOWING CRITERIA ARE MET: 1) THE PATIENT HAS *NOT* BEEN IN THE LAST 3 MONTHS. 2) THE PATIENT HAS *NOT* BEEN TRANSFUSED IN THE LAST 3 MONTHS. PREADMISSION TESTING SAMPLES WILL *NOT* BE HELD FOR 14 DAYS FROM PATIENTS WHO IN THE LAST 3 MONTHS: 1) HAVE BEEN 2) HAVE BEEN TRANSFUSED THESE PATIENTS *MUST* BE COLLECTED WITHIN 3 DAYS OF THE SURGERY DATE. 22 [id number] OP PC TRANSFUSED 09/20/10 1136 23 [id number] OP PC TRANSFUSED 09/20/10 1136 24 Anion gap measurement may be of limited value in the presence of any alkalosis, especially in a combined acid base disorder. . 25 Because ethnic data is not always readily available, this report includes an eGFR for both -Americans and non- Americans. The National Kidney Disease Education Program (NKDEP) does not endorse the use of the MDRD equation for patients that are not between the ages of 18 and 70, are , have extremes of body size, muscle mass, or nutritional status, or are non- or non-. According to the National Kidney Foundation, irrespective of diagnosis, the stage of the disease is based on the level of kidney function: Stage Description GFR(mL/min/1.73 m(2)) 1 Kidney damage with normal or decreased GFR 90 2 Kidney damage with mild decrease in GFR 60-89 3 Moderate decrease in GFR 30-59 4 Severe decrease in GFR 15-29 5 Kidney failure <15 (or dialysis) 26 Lymphopenia % 27 >100^>100,000 ORGANISMS/ML (MANY)^CCU 28 ANY BLOOD NOT GIVEN WILL BE RELEASED AT 0700 ON THE ABOVE DATE UNLESS DOCTOR NOTIFIES LAB OTHERWISE. 29 Anion gap measurement may be of limited value in the presence of any alkalosis, especially in a combined acid base disorder. . 30 Note change in reference range as of 11/14/07. The change was based on recommendations from the [place] [employer]. 31 Please note change in reference range effective 07 . 32 A metabolite of Naproxen, O-desmethylnaproxen, has been shown to interfere with the Jendrassik-Prema method for measuring total bilirubin. Samples from patients who have taken Naproxen have shown spurious elevation in total bilirubin levels. 33 Because ethnic data is not always readily available, this report includes an eGFR for both -Americans and non- Americans. The National Kidney Disease Education Program (NKDEP) does not endorse the use of the MDRD equation for patients that are not between the ages of 18 and 70, are , have extremes of body size, muscle mass, or nutritional status, or are non- or non-. According to the National Kidney Foundation, irrespective of diagnosis, the stage of the disease is based on the level of kidney function: Stage Description GFR(mL/min/1.73 m(2)) 1 Kidney damage with normal or decreased GFR 90 2 Kidney damage with mild decrease in GFR 60-89 3 Moderate decrease in GFR 30-59 4 Severe decrease in GFR 15-29 5 Kidney failure <15 (or dialysis) 34 CHOLESTEROL INTERPRETATION: Desirable: Less than 200 MG/DL Borderline-High Risk: 200-239 MG/DL High-Risk: 240 MG/DL and over 35 HDL INTERPRETATION: Undesirable: High Risk: Less than 40 MG/DL Desirable: Low Risk: Greater than 60 MG/DL 36 LDL INTERPRETATION: Low Risk Optimal Level: LDL Less than 100 MG/DL Near or Above Optimal: LDL 100-129 MG/DL Borderline High Risk: LDL 130-159 MG/DL High Risk: LDL 160-189 MG/DL Very High Risk: LDL Greater than 189 MG/DL 37 FINAL: NO GROWTH DAY 2 (<1,000 CFU/mL) 38 BUDDING YEAST PRESENT 39 ICTOTEST IS A QUALITATIVE CONFIRMATORY TEST FOR BILIRUBIN. 40 SCANT NORMAL URETHRAL OR PERINEAL RONAL 41 NO MRSA ISOLATED 42 Anion gap measurement may be of limited value in the presence of any alkalosis, especially in a combined acid base disorder. . 43 Note change in reference range as of 11/14/07. The change was based on recommendations from the [place] [employer]. 44 Please note change in reference range effective 07 . 45 A metabolite of Naproxen, O-desmethylnaproxen, has been shown to interfere with the Jendrassik-Kentwood method for measuring total bilirubin. Samples from patients who have taken Naproxen have shown spurious elevation in total bilirubin levels. 46 Because ethnic data is not always readily available, this report includes an eGFR for both -Americans and non- Americans. The National Kidney Disease Education Program (NKDEP) does not endorse the use of the MDRD equation for patients that are not between the ages of 18 and 70, are , have extremes of body size, muscle mass, or nutritional status, or are non- or non-. According to the National Kidney Foundation, irrespective of diagnosis, the stage of the disease is based on the level of kidney function: Stage Description GFR(mL/min/1.73 m(2)) 1 Kidney damage with normal or decreased GFR 90 2 Kidney damage with mild decrease in GFR 60-89 3 Moderate decrease in GFR 30-59 4 Severe decrease in GFR 15-29 5 Kidney failure <15 (or dialysis) 47 New Reference Range and Interpretation effective 12/27/2001 TnI (ng/ml) INTERPRETATION Less Than 0.06 ng/mL NOT SUPPORTIVE OF DIAGNOSIS OF PA 0.06 - 0.50 ng/ml INDETERMINATE: SUGGEST SERIAL STUDIES IF CLINICALLY INDICATED. Greater than 0.5 ng/mL CONSISTENT WITH DIAGNOSIS OF PA . 48 PLEASE NOTE NEW REFERENCE RANGE EFFECTIVE 08. 49 Recommended INR for Patients on Oral Anticoagulants Prophylaxis 2.0 - 3.0 Treatment of thrombosis 2.0 - 3.0 Prevention of embolism 2.0 - 3.0 Prevention of embolism from prosthetic heart valves 2.5 - 3.5 50 DIAGNOSIS,TREATMENT,AND THERAPY MUST BE BASED ON THE INR VALUE ALONE. 51 New Reference Range and Interpretation effective 12/27/2001 TnI (ng/ml) INTERPRETATION Less Than 0.06 ng/mL NOT SUPPORTIVE OF DIAGNOSIS OF PA 0.06 - 0.50 ng/ml INDETERMINATE: SUGGEST SERIAL STUDIES IF CLINICALLY INDICATED. Greater than 0.5 ng/mL CONSISTENT WITH DIAGNOSIS OF PA . 52 NR 53 Anion gap measurement may be of limited value in the presence of any alkalosis, especially in a combined acid base disorder. . 54 Note change in reference range as of 11/14/07. The change was based on recommendations from the [place] [employer]. 55 Please note change in reference range effective 07 . 56 A metabolite of Naproxen, O-desmethylnaproxen, has been shown to interfere with the Jendrassik-Kentwood method for measuring total bilirubin. Samples from patients who have taken Naproxen have shown spurious elevation in total bilirubin levels. 57 Because ethnic data is not always readily available, this report includes an eGFR for both -Americans and non- Americans. The National Kidney Disease Education Program (NKDEP) does not endorse the use of the MDRD equation for patients that are not between the ages of 18 and 70, are , have extremes of body size, muscle mass, or nutritional status, or are non- or non-. According to the National Kidney Foundation, irrespective of diagnosis, the stage of the disease is based on the level of kidney function: Stage Description GFR(mL/min/1.73 m(2)) 1 Kidney damage with normal or decreased GFR 90 2 Kidney damage with mild decrease in GFR 60-89 3 Moderate decrease in GFR 30-59 4 Severe decrease in GFR 15-29 5 Kidney failure <15 (or dialysis) 58 ---- RUN DATE: 01/25/09 [facility] NMI LIVE PAGE 1 RUN TIME: 1346 Specimen Inquiry RUN USER: INTERFACE -- Name: NERIS GONZALEZ Status: REG REF Re01/22/09 Age/Sex: 73/F Unit#: [id number] Location: [facility] : 37 -- Specimen: [id number] SOUT Spec Date: 01/22/09 [facility] Dr: Pilo ferreira MD Spec Type: SURGICAL P Received: 01/22/09-9820 Copies to: Anam garcia MD SPECIMEN BIOPSY RIGHT COLON POLYP HISTORY POST-OP DIAGNOSIS: Small polyp removed CLINICAL INFORMATION: Rectal bleeding, history of polyp, removed 2006 GROSS DESCRIPTION Specimen received in formalin labelled Neris Aguirre, Right Colon Polyp and consists of several fragments of thomson-brown tissue measuring in aggregate 1.0 x 1.0 x 0.4 cm. Submitted entirely, one cassette. DIAGNOSIS Colon, right, biopsy: A. Tubular adenoma. B. No high grade dysplasia or malignancy. Signed Electronically by: CHASE MOORE MD 01/25/09 1344 -- -- DEPARTMENT OF PATHOLOGY, [address] [place] [address] [facility] Permit #[id number] Tyler Calvert M.D. Resident Director Dir sara -- 59 Anion gap measurement may be of limited value in the presence of any alkalosis, especially in a combined acid base disorder. . 60 Note change in reference range as of 11/14/07. The change was based on recommendations from the [place] [employer]. 61 Please note change in reference range effective 07 . 62 A metabolite of Naproxen, O-desmethylnaproxen, has been shown to interfere with the Jendrassik-Kentwood method for measuring total bilirubin. Samples from patients who have taken Naproxen have shown spurious elevation in total bilirubin levels. 63 Because ethnic data is not always readily available, this report includes an eGFR for both -Americans and non- Americans. The National Kidney Disease Education Program (NKDEP) does not endorse the use of the MDRD equation for patients that are not between the ages of 18 and 70, are , have extremes of body size, muscle mass, or nutritional status, or are non- or non-. According to the National Kidney Foundation, irrespective of diagnosis, the stage of the disease is based on the level of kidney function: Stage Description GFR(mL/min/1.73 m(2)) 1 Kidney damage with normal or decreased GFR 90 2 Kidney damage with mild decrease in GFR 60-89 3 Moderate decrease in GFR 30-59 4 Severe decrease in GFR 15-29 5 Kidney failure <15 (or dialysis) 64 New Reference Range and Interpretation effective 12/27/2001 TnI (ng/ml) INTERPRETATION Less Than 0.06 ng/mL NOT SUPPORTIVE OF DIAGNOSIS OF PA 0.06 - 0.50 ng/ml INDETERMINATE: SUGGEST SERIAL STUDIES IF CLINICALLY INDICATED. Greater than 0.5 ng/mL CONSISTENT WITH DIAGNOSIS OF PA . 65 Recommended INR for Patients on Oral Anticoagulants Prophylaxis 2.0 - 3.0 Treatment of thrombosis 2.0 - 3.0 Prevention of embolism 2.0 - 3.0 Prevention of embolism from prosthetic heart valves 2.5 - 3.5 66 ATTENTION EFFECTIVE 08/05/08, THE IMPLEMENTATION OF NEW COAGULATION ANLAYZERS HAS CAUSED A SIGNIFICANT DIFFERENCE FOR PROTIME RESULTS IN SECONDS. THEREFORE, DIAGNOSIS,TREATMENT,AND THERAPY MUST BE BASED ON THE INR VALUE ONLY. 67 PLEASE NOTE NEW REFERENCE RANGE EFFECTIVE 08. 68 Anion gap measurement may be of limited value in the presence of any alkalosis, especially in a combined acid base disorder. . 69 Note change in reference range as of 11/14/07. The change was based on recommendations from the [place] [employer]. 70 Please note change in reference range effective 07 . 71 A metabolite of Naproxen, O-desmethylnaproxen, has been shown to interfere with the Jendrassik-Kentwood method for measuring total bilirubin. Samples from patients who have taken Naproxen have shown spurious elevation in total bilirubin levels. 72 Because ethnic data is not always readily available, this report includes an eGFR for both -Americans and non- Americans. The National Kidney Disease Education Program (NKDEP) does not endorse the use of the MDRD equation for patients that are not between the ages of 18 and 70, are , have extremes of body size, muscle mass, or nutritional status, or are non- or non-. According to the National Kidney Foundation, irrespective of diagnosis, the stage of the disease is based on the level of kidney function: Stage Description GFR(mL/min/1.73 m(2)) 1 Kidney damage with normal or decreased GFR 90 2 Kidney damage with mild decrease in GFR 60-89 3 Moderate decrease in GFR 30-59 4 Severe decrease in GFR 15-29 5 Kidney failure <15 (or dialysis) 73 CHOLESTEROL INTERPRETATION: Desirable: Less than 200 MG/DL Borderline-High Risk: 200-239 MG/DL High-Risk: 240 MG/DL and over 74 HDL INTERPRETATION: Undesirable: High Risk: Less than 40 MG/DL Desirable: Low Risk: Greater than 60 MG/DL 75 LDL INTERPRETATION: Low Risk Optimal Level: LDL Less than 100 MG/DL Near or Above Optimal: LDL 100-129 MG/DL Borderline High Risk: LDL 130-159 MG/DL High Risk: LDL 160-189 MG/DL Very High Risk: LDL Greater than 189 MG/DL 76 MICROALBUMINURIA IN A RANDOM SAMPLE IS DEFINED : MICROALBUMIN/CREATININE RATIO OF 30-299 ug/mg. . 77 THERAPEUTIC TARGET FOR THE TREATMENT OF DIABETES MELLITUS PATIENTS IS <7% HBA1C, AND IN SELECTIVE PATIENTS <6.0%. PLEASE REFER TO [place] [employer] DIABETIC CARE GUIDELINES FOR FURTHER INFORMATION. Procedures Date CPT Code Description Status 04/13/2017 09103 Admin Of Inj Completed 01/17/2017 94621 EKG Tracing & Interpretation Completed 10/25/2016 57845 Polysomnography Sleep Staging 4+ Parameters W/Cpap Completed 09/12/2016 75923 Admin Of Inj Completed 09/06/2016 14239 Polysomnography Sleep Staging 4+ Parameters Completed 06/14/2016 25300 EKG Tracing & Interpretation Completed 05/03/2016 78358 Inject/Drain Joint/Bursa Major Completed 05/03/2016 53844 Inject/Drain Joint/Bursa Intermediate Completed 04/10/2016 36639 Admin Of Inj Completed 04/10/2016 71489 Chemotherpy Admin Subcutaneous/Im Non-Hormonal Completed Anti-Neoplastic 09/10/2015 Bone Mineral Density Test Completed 09/07/2015 74874 Chemotherpy Admin Subcutaneous/Im Non-Hormonal Completed Anti-Neoplastic 07/29/2015 22909 Stress Test Completed 07/29/2015 87824 Myocardial Perfusion Imaging Tomographic (Spect) Completed Multiple Studies 07/16/2015 38971 EKG Tracing & Interpretation Completed 02/15/2015 36195 Chemotherpy Admin Subcutaneous/Im Non-Hormonal Completed Anti-Neoplastic 12/22/2014 27905 Trigger Finger Release Incision / Tendon Sheath Completed Incision 12/22/2014 68766 Trigger Finger Release Incision / Tendon Sheath Completed Incision 12/11/2014 47413 EKG Tracing & Interpretation Completed 08/13/2014 06512 Admin Of Inj Completed 07/06/2014 76804 Treadmill Interp/Report Only Completed 07/06/2014 12408 Stress Test Supervsn W/Out I/R Completed 07/02/2014 83198 ECHO Transthorasic Realtime 2D W Doppler & Color Completed Flow Hosp 07/02/2014 50686 EKG, Interpretation Only Completed 07/01/2014 31223 EKG, Interpretation Only Completed 07/01/2014 73112 EKG, Interpretation Only Completed 06/15/2014 02559 Inject Tendon Sheath Or Ligament Aponeurosis Eg Plantar Completed Fascia 04/09/2014 48659 Inject/Drain Joint/Bursa Major Completed 01/28/2014 35090 Admin Of Inj Completed 12/29/2013 Mammogram Completed 12/29/2013 Bone Mineral Density Test Completed 12/04/2013 82522 Inject Tendon Sheath Or Ligament Aponeurosis Eg Plantar Completed Fascia 11/13/201305600 Inject/Drain Joint/Bursa Major Completed 05/27/2013 30384 EKG Tracing & Interpretation Completed 05/08/2013 05327 Myocardial Perfusion Imaging Tomographic (Spect) Completed Multiple Studies 05/08/2013 58959 Stress Test Completed 05/06/201331032 Inject/Drain Joint/Bursa Major Completed 05/01/2013 92233 ECHO Transthoracic, Real-Time 2D With Doppler And Color Completed Flow 04/29/2013 49994 EKG Tracing & Interpretation Completed 11/28/2012 02344 Inject Tendon Sheath Or Ligament Aponeurosis Eg Plantar Completed Fascia 11/28/201217698 Inject/Drain Joint/Bursa Major Completed 11/15/2012 04356 EKG Tracing & Interpretation Completed 06/21/2012 11888 Rad Exam; Hip Unilat Completed 06/21/2012 56937 Rad Exam; Hip Unilat Completed 06/21/2012 41766 Rad Exam; Pelvis Completed 06/21/2012 18456 Rad Exam; Pelvis Completed 04/01/201286354 Inject/Drain Joint/Bursa Intermediate Completed 09/20/2011 35019 Rad Shoulder Comp, Min. 2 Views Completed 09/20/201127307 Inject/Drain Joint/Bursa Major Completed 06/02/2011 21246 Xray Knee 3 Views Completed 06/02/2011 53086 Rad Exam; Knee, Ap&L Completed 11/14/2010 91285 Rad Exam; Knee, Ap&L Completed 11/14/2010 44286 Rad Exam; Both Knees, Standing Ap Completed 10/03/2010 83420 Rad Exam; Both Knees, Standing Ap Completed 10/03/2010 26553 Rad Exam; Knee, Ap&L Completed 10/03/2010 62963 Rad Exam; Toes Completed 09/20/2010 88507 Revision TKA W Or W/O Allograft;Femoral & Entire Completed Tibial Component 09/20/2010 44307 Revision TKA W Or W/O Allograft;Femoral & Entire Completed Tibial Component 09/07/2010 46681 Xray Knee 3 Views Completed 09/07/201047492 Inject/Drain Joint/Bursa Major Completed 02/23/201049713 Inject/Drain Joint/Bursa Major Completed 02/16/2010 30923 Xray Knee 3 Views Completed 02/16/2010 87411 Rad Exam; Knee, Ap&L Completed 01/22/2009 Colonoscopy Completed Encounters Type Date Location Provider CPT E/M Dx Office Visit 03/30/2017 Rheumatology Services RAY Pak 04220 M81.0 11:00a Of [facility] N18.9 M77.01 Office Visit 01/17/2017 11:45a [facility] Carson Hartley 91729 I25.10 Flash Scott N18.9 I12.9 Office Visit 11/21/2016 10:45a Pul[facility]ology [facility] Sleep Melony Noriega 10282 G47.33 Services Of [facility] MAIRA MACIAS, [facility] G47.14 Office Visit 09/29/2016 10:00a [facility]ology [facility] Sleep Melony Noriega 06767 G47.33 Services Of [facility] MAIRA MACIAS, 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-BC G89.29 G47.14 F40.240 E66.09 Z68.36 Office Visit 09/12/2016 10:00a Rheumatology Services Of RAY Pak 74915 M81.0 [facility] Z92.29 M54.5 Office Visit 08/16/2016 2:40p Rheumatology Services Nadine Toro 97027 M79.604 Of [facility] RAY M81.0 M54.42 Office Visit 08/08/2016 8:45a Pulmonology [place] Kim Á[place] [address] R06.81 Services Of [facility] R06.83 R40.0 R51 G47.8 R12 E66.09 Z68.37 Office Visit 07/21/2016 11:00a [facility] BLACK Arevalo 95322CUX I25.10 [facility] N18.9 I12.9 Office Visit 06/14/2016 9:00a [facility] Of [facility] BLACK Arevalo 81348 R07.9 I25.10 N18.9 G47.33 Office Visit 05/10/2016 11:15a [facility] Of Virgil Spence M.D. 90864 S86.111A C.M.A. Office Visit 05/03/2016 1:30p [facility] Virgil Spence M.D. 87858 M71.21 C.M.A. M19.121 S46.011A Office Visit 02/28/2016 10:00a Rheumatology Services Of Nadine Toro, [facility] 51351 R21 [facility]-Norm M81.0 E55.9 Z79.899 Office Visit 12/08/2015 11:00a Rheumatology Services Of Nadine Toro, [facility] 52418 M81.0 [facility] E55.9 N18.3 Z79.899 Office Visit 09/07/2015 11:30a [facility]ology Services Of Nadine Toro, [facility] 23039 M81.0 [facility] K21.9 N18.3 E55.9 Z92.29 Office Visit 08/20/2015 9:30a [facility] Carson Hartley, 23538 I25.10 Flash Scott R07.9 Office Visit 07/16/2015 9:15a [facility] [place] Hartley, 11852 I25.10 Flash Scott I10 R07.9 Office Visit 05/03/2015 11:00a [facility] Virgil Spence M.D. 02510 S53.401D C.M.A. S83.402D S83.92xA S83.91xA Office Visit 04/19/2015 2:00p [facility] Virgil Spence M.D. 80320 S83.402D C.M.A. S83.401D S53.401A S83.92xA S83.91xA Office Visit 02/15/2015 11:00a Rheumatology Services Phillip Sheffield M.D. 21351 M81.0 Of [facility] Z79.899 M79.7 Office Visit 02/12/2015 11:00a [facility] Of [facility] Carson Hartley, 98637 I10 MKindra I25.10 Office Visit 01/15/2015 10:32a [facility] Ass,[place] [address] K92.2 Hospitalists E13.9 I10 Office Visit 01/14/2015 10:30a [facility] Ass[place] [address] K92.2 Hospitalists E13.9 I10 Office Visit 12/11/2014 3:30p [facility] D[employer] BLACK Arevalo 30023 727.03 401.9 414.00 715.09 V72.81 Office Visit 12/09/2014 1:30p [facility] Of Lore Higginbotham, 92365 724.2 Tyrone GARCIA 727.03 Office Visit 10/26/2014 1:22p [facility], Peter Bhagat, 70714 584.9 Hospitalists MKindra 786.05 276.8 401.9 Office Visit 10/25/2014 1:21p [place], [address] 584.9 Assoc,pc Hospitalists MKindra 786.05 276.8 401.9 Office Visit 10/16/2014 11:43a [facility],pc Renita De Jesus, 41079 562.12 Hospitalists MEladioDEladio 401.9 Office Visit 10/15/2014 11:43a [facility],pc Renita De Jesus, 44221 562.12 Hospitalists MEladioDEladio 414.00 401.9 Office Visit 10/14/2014 11:42a [facility],pc Renita De Jesus, 34004 562.12 Hospitalists M.DEladio 414.00 401.9 Office Visit 10/13/2014 11:41a [facility],pc Renita De Jesus, 40466 562.12 Hospitalists MEladioDEladio 414.00 401.9 Office Visit 10/12/2014 11:41a [facility], Renita De Jesus, 14693 562.12 Hospitalists MEladioDEladio 414.00 401.9 Office Visit 10/11/2014 11:40a [facility] Radha Rodriguez, 75573 562.12 Assoc, Hospitalists M.DEladio 414.00 401.9 Office Visit 08/13/2014 10:20a Rheumatology Services Phillip Sheffield, 50314 733.01 Of [facility] Tyler 724.00 338.4 715.09 Office Visit 07/06/2014 12:48p [facility], Radha Rodriguez, 40802 578.9 Hospitalists MKindra 530.81 285.1 276.8 Office Visit 07/05/2014 2:08p [facility] Sommer Gordon, 35920 414.9 M.DEladio 794.31 401.1 V45.82 Office Visit 07/05/2014 12:45p [facility],pc Radha Rayhn, 62774 578.9 Hospitalists M.DEladio 276.8 285.1 Office Visit 07/04/2014 12:45p [facility],pc Radha Rodriguez, 69638 578.9 Hospitalists M.DEladio 530.81 285.1 276.8 Office Visit 07/03/2014 3:45p [facility] Of Oracio Danielle, 71048 425.11 Flash Scott, [facility] Office Visit 07/03/2014 12:44p [facility] Radha Michael, 90362 578.9 Assoc, Hospitalists M.DEladio 584.9 530.81 285.1 Office Visit 07/02/2014 12:42p [facility], [place] [address] 578.9 Hospitalists 530.81 786.50 285.1 Office Visit 07/02/2014 10:33a [facility] Of Jacquelyn Maxwell M.D. 52047 780.2 [facility] [employer] 414.9 Office Visit 07/01/2014 12:42p [facility] [address] 578.9 Hospitalists 584.9 530.81 285.1 Office Visit 06/30/2014 12:41p [facility]pc Naeem Reid M.D. 82303 578.9 Hospitalists 530.81 285.1 Office Visit 06/29/2014 10:15a [facility] Virgil Spence M.D. 22252 727.03 C.M.A. 996.41 V43.65 Office Visit 06/15/2014 2:00p [facility] Virgil Spence M.D. 98055 727.03 C.M.A. 996.41 V43.65 Office Visit 05/27/2014 10:30a [facility] Carson Hartley, 59509 414.01 Flash Scott 401.9 Office Visit 04/23/2014 10:40a Rheumatology Services Phillip Sheffield, 50120 733.00 Of Flash Scott 724.00 729.1 715.09 Office Visit 04/16/2014 10:20a Rheumatology Services Norbert Kidd M.D. 26454 733.00 Of [facility] 724.00 729.1 715.09 Office Visit 02/06/2014 3:00p Neurosurgery Services Rob Salguero, 01024 721.2 Of [employer] [employer] M.Justin Office Visit 01/14/2014 11:00a Rheumatology Services Norbert Kidd M.D. 16652 726.10 Of [facility] 733.00 724.00 729.1 715.09 585.3 Office Visit 12/11/2013 1:45p [facility] Carson Hartley 42389 786.50 Flash Scott 401.9 414.01 Office Visit 12/04/2013 11:15a [facility] Of Krystle Crisostomo 24716 727.03 C.M.AEladio Scott Office Visit 12/01/2013 9:00a Rheumatology Services Norbert Kidd M.D. 86511 715.09 Of [facility] 729.1 733.00 726.10 724.00 Office Visit 11/13/2013 1:30p [facility] Of Billy Cantrell M.D. 36937 718.81 C.M.AEladio 726.10 726.2 Office Visit 05/27/2013 1:45p [facility] Carson Hartley 23516 786.50 [facility] David [facility] Tyler 401.9 786.05 Office Visit 05/12/2013 10:26a [facility] Ass,immanuel Jessica 07795 786.51 Hospitalists M.Justin 785.1 278.01 Office Visit 05/11/2013 10:26a [facility] Assamber,immanuel Jessica 89344 786.51 Hospitalists M.Justin 785.1 278.01 Office Visit 05/06/2013 11:15a [facility] Of Lula Ferrrai 47276 718.81 C.M.A. RPA-C 726.10 726.2 Office Visit 04/29/2013 1:15p [facility] Carson Hartley, 92369 786.50 [facility] [employer] At [facility] M.DEladio 786.05 414.01 401.9 Office Visit 11/28/2012 11:15a [facility] Krystle Crisostomo, 62473 727.82 Of C.MMaria M Scott 727.03 726.2 Office Visit 11/15/2012 10:15a [facility] Carson Hartley, 66331 414.9 [facility] M.DEladio 401.9 Office Visit 07/16/2012 11:45a [facility] Of Billy Cantrell M.D. 37407 719.45 C.M.A. 729.2 Office Visit 06/21/2012 10:15a [facility] Of Lula Ferrari, 62201 719.45 C.M.A. RPA-C 729.2 719.45 Office Visit 04/01/2012 3:15p [facility] Virgil Spence M.D. 20931 727.82 C.M.A. Office Visit 02/14/2012 10:15a [facility] Of Lula Ferrari, 03734 726.31 C.M.A. RPA-C Office Visit 01/26/2012 12:43p [facility], Renita De Jesus, 97647 786.51 Hospitalists M.DEladio 414.01 401.9 Office Visit 01/25/2012 12:43p [facility], Naeem Reid M.D. 96482 786.51 Hospitalists 414.01 401.9 272.2 Office Visit 11/20/2011 2:30p [facility] Of Lula Ferrari 73999 726.31 C.M.A. RPA-C Office Visit 09/20/2011 8:15a [facility] Virgil Spence M.D. 89237 726.11 C.M.A. Office Visit 06/02/2011 3:45p [facility] Virgil Spence M.D. 45563 715.96 C.M.A. Office Visit 09/07/2010 2:45p [facility] Virgil Spence M.D. 76720 719.06 C.M.A. 996.41 Office Visit 02/23/2010 2:30p [facility] Virgil Spence M.D. 91936 996.41 C.M.A. Office Visit 02/16/2010 9:00a [facility] Virgil Spence M.D. 55919 996.41 C.M.A. 719.46 Office Visit 11/01/2009 10:00a DO Not Use [place] [address] 272.4 [facility] 414.01 Office Visit 10/14/2009 10:00a DO Not Use [place] [address] 530.81 [facility] 599.0 272.4 Office Visit 07/09/2009 1:20p DO Not Use [facility] [employer] At Anam Barroso, 40633 112.1 Sybil Scott 627.9 250.00 Office Visit 05/04/2009 11:40a DO Not Use [facility] [employer] At Anam Barroso, 88593 721.0 Sybil Scott 307.42 272.4 278.00 401.9 716.86 530.81 840.4 414.01 412 300.00 565.0 Office Visit 05/02/2009 12:15a [facility] Ass, Randal Lerma M.D. 76037 786.50 Hospitalists Office Visit 04/30/2009 2:30a [facility], Renita De Jesus 46745 786.50 Hospitalists MEladioDEladio 401.9 Office Visit 04/29/2009 2:15a [facility], Renita De Jesus 01506 786.50 Hospitalists M.D. Office Visit 04/19/2009 3:00p Neurosurgery Services Rob Salguero, 48136 721.0 Of [employer] M.DEladio Office Visit 03/22/2009 9:40a DO Not Use [facility] At [facility] 95459 307.42 Sybil Mendieta M.D. 721.0 250.00 278.00 272.4 401.9 716.86 530.81 840.4 414.01 412 300.00 Office Visit 01/20/2009 11:20a DO Not Use [facility] At [facility], 65678 721.0 [facility] M.D. Office Visit 01/08/2009 11:00a DO Not Use [facility] At [facility], 29650 307.42 [facility] M.D. 250.00 278.00 272.4 401.9 716.86 530.81 840.4 414.01 412 300.00 721.0 Office Visit 12/16/2008 10:00a DO Not Use [facility] [employer] At [facility], [id number] [phone] [facility] M.D. [phone] Plan of Care Future Appointment(s):06/04/2017 10:45 am - Krystle Crisostomo M.D. at [facility]10/11/2017 10:30 am - Nurse Visit [facility] at [facility]06/29/2017 10:30 am - RAY Pak at [facility] - Debra Brown [facility]-[id number] Medial epicondylitis, right elbowNew Therapy:Physical TherapyFollow up:Follow up: 6 [id number] Primary osteoarthritis, right elbow
--- NOTE | 2017-05-02 18:19 | RAD ---
CLINICAL HISTORY: Right flank pain COMPARISON: Renal ultrasound dated April 02, 2017 TECHNIQUE: Multiple contiguous axial CT scans were obtained of the abdomen and pelvis, without intravenous contrast enhancement. Coronal and sagittal multiplanar reformations are submitted for review. Oral contrast was not administered. FINDINGS: The study is limited by the lack of intravenous contrast. This limits evaluation of the solid organs and vasculature. LUNG BASES: The lung bases are clear. LIVER: The liver is homogeneously enlarged measuring 19 cm in long axis. There is dystrophic calcification within the left lobe of the liver. BILE DUCTS: There is no intrahepatic or extrahepatic biliary dilatation. GALLBLADDER: The gallbladder is incompletely distended but is grossly normal. PANCREAS: The pancreas is normal, without mass or ductal dilatation. SPLEEN: Normal in size and appearance. UPPER GI TRACT: Evaluation of the gastrointestinal tract is limited by incomplete gastric distention. The upper GI tract is unremarkable. SMALL BOWEL AND MESENTERY: The small bowel is normal in contour, course, and caliber. There is no obstruction or dilatation. COLON: There are multiple diverticula of the transverse colon. There is post surgical change to the descending colon. ADRENALS: Normal bilaterally. KIDNEYS: There are punctate calculi of the kidneys bilaterally, measuring up to 0.2 cm. There is no hydronephrosis. BLADDER: The bladder is smooth in contour. PELVIC ORGANS: The pelvic organs are not visualized. AORTA: There is calcific atherosclerotic disease of the abdominal aorta and its branches, without aneurysmal dilatation IVC: Unremarkable LYMPH NODES: There is no lymphadenopathy by size criteria. ABDOMINAL WALL: There is no evidence for abdominal wall hernia. BONES AND SOFT TISSUES: There is a scoliotic curvature of the spine. There is diffuse osteopenia. Degenerative changes are noted. OTHER: None IMPRESSION: 1. PUNCTATE BILATERAL NONOBSTRUCTING RENAL CALYCEAL STONES. 2. DIVERTICULOSIS. 3. ATHEROSCLEROSIS. 4. HEPATOMEGALY.
[2017-05-02 18:45] LABS: ABS Basophils 0.1 10^3/ul (0-0.2); ABS Eosinophils 0.2 10^3/ul (0-0.6); ABS Lymphocytes 1.7 10^3/ul (1.0-4.8); ABS Monocytes 0.5 10^3/ul (0-0.8); ABS Neutrophils 5.1 10^3/ul (1.5-7.7); ABS Nucleated RBC 0 10^3/ul; Eosinophil % 3.1 % (0-6); Hematocrit 36 % (35-47); Hemoglobin 11.8 g/dl (12.0-16.0); Lymphocyte % 22.8 % (25-47); Mean Corpuscular HGB Conc 33 g/dl (31-36); Mean Corpuscular Hemoglobin 30 pg (27-31); Mean Corpuscular Volume 91 fL (80-97); Mean Platelet Volume 7 um3 (7.4-10.4); Nucleated Red Blood Cells % 0; Platelet Count 246 10^3/ul (150-450); Red Blood Count 3.91 10^6/ul (4.0-5.4); Red Cell Distribution Width 14 % (10.5-15); White Blood Count 7.7 10^3/ul (3.5-10.8)
[2017-05-02 19:03] LABS: EGFR Non-African American 30.4 (>60)
[2017-05-02 19:37] LABS: Urine Appearance Cloudy; Urine Blood 2+ (Negative); Urine Color Yellow; Urine Ketones Negative (Negative); Urine Protein Negative (Negative); Urine Specific Gravity 1.013 (1.010-1.030); Urine Urobilinogen Negative (Negative)
[2017-05-02] MEDS ORDERED: Sulfamethox/Trimethoprim DS 800/160* TAB PO ONE (19:53)
[2017-05-02 20:39] VITALS: BP 152/84
== END 2017-05-02 20:40 | disposition home or self-care (01) ==
LOC: ED 17:21
DX: N23 Unspecified renal colic (principal); I12.9 Hypertensive chronic kidney disease with stage 1 through stage 4 chronic kidney disease, or unspecified chronic kidney disease; N39.0 Urinary tract infection, site not specified; E03.9 Hypothyroidism, unspecified; Z88.0 Allergy status to penicillin; I25.10 Atherosclerotic heart disease of native coronary artery without angina pectoris; Z86.718 Personal history of other venous thrombosis and embolism; I21.9 Acute myocardial infarction, unspecified; I73.9 Peripheral vascular disease, unspecified; K57.90 Diverticulosis of intestine, part unspecified, without perforation or abscess without bleeding
CPT/HCPCS: 36415; 74176; 80053; 81003; 81015; 83690; 85025; 86141; 87086; 96360; 96374; 96375; 99284; A9270-GY; J2270; J2405

== ENCOUNTER 2017-05-19 07:06 | Inpatient (IN) | payer MEDICARE ==
--- OUTSIDE RECORDS SUMMARY | 2017-05-19 07:15 | XMS REPORT ---
:1935 External Reference #:[id number] Author Organization [facility] Address [address] [place] [address] Phone [phone] Care Team Providers Name Role Phone HCP given Primary Care Physician Unavailable Payers Type Date Identification Numbers Payment Provider Subscriber Medicare Primary Policy Number: [id number] [facility] [employer] PayID: [id number] [address] [place] [address] Problems Date Description Provider Status Onset: 11/25/2015 Degenerative joint disease Yayo Silva M.D. Active involving multiple joints Onset: 03/21/2016 Coronary atherosclerosis Chloe Singh, PA Active Onset: 04/12/2016 Type 2 diabetes mellitus Chloe Singh, PA Active Onset: 04/12/2016 Spinal stenosis of thoracic region Chloe Singh, PA Active Onset: 07/11/2016 Chronic kidney disease Geoffrey Singhli, PA Active Onset: 08/21/2016 Degeneration of lumbosacral HekChloe orellana, PA Active intervertebral disc Onset: 08/24/2016 Osteoporosis Chloe Singh, PA Active Onset: 10/10/2016 Sleep apnea HektorGeoffreyli, PA Active Onset: 04/10/2017 Cyst of kidney HektorGeoffreyli, PA Active Onset: 04/10/2017 Kidney stone Chloe Singh, PA Active Onset: 04/11/2017 Diabetic peripheral neuropathy Chloe Singh, PA Active associated with type 2 diabetes mellitus Family History Date Family Member(s) Problem(s) Comments Father due to Prostate Cancer () - age 92 Mother due to Cancer () - age 87 Children 6 Siblings 8 Social History Type Date Description Comments Marital Status Lives With at [facility], [place]; 2018-- in longterm s/p stroke Smoke-Free Home is smoke-free Work Status Retired Cigarette Use Never Smoked Cigarettes ETOH Use Denies alcohol use Smoking Non Smoker Recreational Drug Use Denies Drug Use Exercise Type/Frequency Exercises regularly Seat Belt/Car Seat Seat Belt Use - Yes Smoke Alarms Yes smoke alarm Allergies, Adverse Reactions, Alerts Date Description Reaction Status Severity Comments 11/25/2015 Penicillin active 04/16/2017 Cephalexin Urticaria active Mild 05/05/2017 Sulfamethoxazole / Trimethoprim active itchy rash Medications Medication Date Status Form Strength Qnty SIG Indications Ordering Provider Nitrofurantoin 05/05/ Active Capsules 100mg 14cap 1 tab by N39.0 Elle Monohyd Macro 2018 s mouth twice Favian, a day x7 M.D. days Calcium 04/27/ Active Tablets 600mg 180ta one tab by Elle Carbonate 2017 bs mouth twice Favian, a day M.D. Baclofen 02/09/ Active Tablets 20mg 42tab 1/2 to 1 M48.05 Elle 2017 s three times Favian, a day as M.D. needed for back pain and spasm Potassium 02/08/ Active Tablets 20Meq 30tab 1 tab by Sopchak, Chloride ER 2017 ER s mouth by Gal, mouth daily D.O. Freestyle Test 10/18/ Active Strips 100un test 1-2 E11.[facility] its times daily BLACK Corona Freestyle 10/18/ Active Misc 100un test 1-2 E11.9 Samantha, Lancmichelle 2017 its times daily BLACK Corona Zostavax 02/09/ Active Solution 15825Qea/ vaccination Z71.89 2015 Rec 0.65ML x 1 Jcarlos Silva M.D. Oxycodone-Acetam 01/07/ Active Tablets 5-325mg 120ta take 1 M15.0 Elle inophen 2015 bs tablet by Favian mouth up to M.D. 4 times per day as needed for severe pain M48.05 Aspir-Low 11/24/[address] 81mg 1 by mouth Unknown every day Vitamin D3 High 11/24/2015 Active Capsules 1000Uni 60c 2 tabs by Elle Potency t aps mouth daily Tyler Ballesteros Stool Softener 11/24/2015 Active Tablets 8.6-50m one po daily Unknown Plus Laxative g Simvastatin 11/24/2015 Active Tablets 20mg 90t 1 by mouth Sopchak, abs every day Gal D.O. Valacyclovir HCL 11/24/2015 Active Tablets 500mg 180 1 by mouth A60 Silcoff, tab twice a day .04 ravi BallesterosD. Nitrostat 11/24/2015 Active Tablets Sub 0.4mg 6ta 1 every 5min Daisy bs as needed Gal, heart pain up D.O. to 3 max then call 911 if unrelieved Lisinopril 11/24/2015 Active Tablets 10mg 90t 1 by mouth I25 Sopchak, abs every day .10 Gal D.O. Diltiazem CD 11/24/2015 Active Caps ER 180mg 30c take 1 capsule Silcoff, 24HR aps by mouth every Favian, day M.D. Tramadol HCL 11/24/2015 Active Tablets 50mg 120 take one M15 Silcoff, tab tablet by .0 ravi Ballesteros mouth every 6 M.D. hours as needed for pain, maximum daily dose of 4 per day Cod Liver Oil Active Capsules 2 daily Unknown Cranberry Active Capsules 500mg 1 daily Unknown Concentrate Prolia Active Solution 60mg/ml subq: 60 mg as Unknown a single dose, once every 6 months Bactrim DS 04/16/2017 - Hx Tablets 800-160 10t 1 by mouth L03 Sopchak, 04/21/2017 mg abs twice a day .11 Gal 3 D.O. Cephalexin 04/11/2017 - Hx Capsules 500mg 21c 1 tab by mouth L03 Silcoff, 04/16/2017 aps three times a .11 Favian, day x7 days 3 M.D. Nitrofurantoin 03/08/2017 - Hx Capsules 100mg 14c 1 twice a day N39 Silcoff, Monohyd Macro 03/15/2017 aps x 7 days for .0 Favian uti M.D. Ciprofloxacin HCL 02/10/2017 - Hx Tablets 500mg 14t 1 tab by mouth Silcoff, 02/17/2017 abs twice a day x7 Favian, varghese M.D. Metaxalone 02/07/2017 - Hx Tablets 800mg 90t 1 tab by mouth M48 Silcoff , 02/09/2017 abs three times a .05 Favian, aviva as needed M.D. spasms Ciprofloxacin HCL 07/06/2016 - Hx Tablets 500mg 14t 1 tab by mouth N39 Hektor, 10/09/2016 abs twice a day x7 .0 BLACK Corona days Pyridium 07/06/2016 - Hx Tablets 200mg 9ta 1 tab by mouth N39 Hektor, 10/09/2016 bs three times a .0 BLACK Corona day x3 days as needed urinary pain Tizanidine HCL 11/24/2015 - Hx Capsules 4mg 1 three times Unknown 11/11/2015 a day prn Calcium Carbonate 11/24/2015 - Hx Tablets 600mg one tab po Unknown 11/25/2015 twice a day Duloxetine HCL 11/24/2015 - Hx Caps DR 60mg take one Unknown 11/11/2015 Part capsule by mouth every day for mood Potassium 11/24/2015 - Hx Tablets ER 10Meq 30t 1 by mouth Silcoff, Chloride ER 02/08/2017 abs daily for ibrahima Ballesteros M.DEladio replacement Medications Administered in Office Medication Date Status Form Strength Qnty SIG Indications Ordering Provider injection, Administered Injection tony Villa, 10 mg 017 Ritchie Santo Immunizations CPT Code Status Date Vaccine Lot # [id number] Given 12/20/2016 Influenza Vaccine Split Virus Preservative Free Im [id number] Use [id number] Given 01/08/2016 Influenza Vaccine Split Virus Preservative Free Im [id number] Use [id number] Given 12/17/2014 Adacel or Boostrix, TDaP Vital Signs Date Vital Result Comment 05/05/2017 BP Systolic 126 mmHg BP Diastolic 76 mmHg Body Temperature 98.3 F Weight 183.00 lb w/sneakers 04/11/2017 BP Systolic 140 mmHg BP Diastolic 70 mmHg Weight 180.00 lb w/boots 03/12/2017 BP Systolic 132 mmHg BP Diastolic 78 mmHg Weight 179.00 lb with boots 03/08/2017 BP Systolic 148 mmHg BP Diastolic 100 mmHg Body Temperature 98.5 F Weight 175.00 lb w/boots 02/22/2017 BP Systolic 140 mmHg BP Diastolic 76 mmHg Weight 174.00 lb 02/07/2017 BP Systolic 178 mmHg BP Diastolic 94 mmHg Height 60 inches 5'0" Weight 174.00 lb BMI (Body Mass Index) 34.0 kg/m2 12/20/2016 BP Systolic 111 mmHg BP Diastolic 68 mmHg Heart Rate 64 /min Weight 179.00 lb w/shoes 10/10/2016 BP Systolic 138 mmHg BP Diastolic 80 mmHg Weight 187.00 lb with shoes 07/11/2016 BP Systolic 142 mmHg BP Diastolic 80 mmHg Weight 192.00 lb with shoes 07/06/2016 BP Systolic 164 mmHg BP Diastolic 102 mmHg BP Systolic Recheck 142 mmHg BP Diastolic Recheck 82 mmHg Height 60 inches 5'0" Weight 190.00 lb BMI (Body Mass Index) 37.1 kg/m2 04/12/2016 BP Systolic 168 mmHg BP Diastolic 84 mmHg Weight 194.00 lb 02/10/2016 BP Systolic 144 mmHg k BP Diastolic 84 mmHg k Heart Rate 70 /min rrr Respiratory Rate 16 /min Weight 196.00 lb with boots 01/08/2016 BP Systolic 134 mmHg BP Diastolic 72 mmHg Weight 195.00 lb 11/25/2015 BP Systolic 150 mmHg BP Diastolic 82 mmHg Height 60 inches 5'0" with sandals Weight 194.00 lb with sandals BMI (Body Mass Index) 37.9 kg/m2 Results Test Date Test Result H/L Range Note Urinalysis Profile 05/02/2017 Urine Color Yellow Urine Appearance Cloudy Urine Specific [place] 1.013 1.010-1.030 Urine pH 5.0 5-9 Urine Urobilinogen Negative Negative Urine Ketones Negative Negative Urine Protein Negative Negative Urine Leukocytes 2+ Negative Urine Blood 2+ Negative Urine Nitrite Negative Negative Urine Bilirubin Negative Negative Urine Glucose Negative Negative Urine White Blood Cell 3+(>20/hpf) Absent Urine Red Blood Cell 2+(6-10/hpf) Absent Urine Bacteria 1+ Absent Urine Squamous Epithelial Cell Present Absent Urine Hyaline Casts Present Absent Laboratory test 05/02/2017 Urine Culture And SEE RESULT BELOW 1 finding Sensitivities CBC Auto Diff 05/02/2017 White Blood Count 7.7 10^3/uL 3.5-10.8 Red Blood Count 3.91 10^6/uL Low 4.0-5.4 Hemoglobin 11.8 g/dL Low 12.0-16.0 Hematocrit 36 % 35-47 Mean Corpuscular Volume 91 fL 80-97 Mean Corpuscular Hemoglobin 30 pg 27-31 Mean Corpuscular HGB Conc 33 g/dL 31-36 Red Cell Distribution Width 14 % 10.5-15 Platelet Count 246 10^3/uL 150-450 Mean Platelet Volume 7 um3 Low 7.4-10.4 Abs Neutrophils 5.1 10^3/uL 1.5-7.7 Abs Lymphocytes 1.7 10^3/uL 1.0-4.8 Abs Monocytes 0.5 10^3/uL 0-0.8 Abs Eosinophils 0.2 10^3/uL 0-0.6 Abs Basophils 0.1 10^3/uL 0-0.2 Abs Nucleated RBC 0 10^3/uL Granulocyte % 66.4 % 38-83 Lymphocyte % 22.8 % Low 25-47 Monocyte % 6.6 % 1-9 Eosinophil % 3.1 % 0-6 Basophil % 1.1 % 0-2 Nucleated Red Blood Cells % 0 Comp Metabolic Panel 05/02/2017 Sodium 138 mmol/L 133-145 Potassium 4.2 mmol/L 3.5-5.0 Chloride 100 mmol/L Low 101-111 Co2 Carbon Dioxide 31 mmol/L 22-32 Anion Gap 7 mmol/L 2-11 Glucose 98 mg/dL 70-100 Blood Urea Nitrogen 47 mg/dL High 6-24 Creatinine 1.63 mg/dL High 0.51-0.95 BUN/Creatinine Ratio 28.8 High 8-20 Calcium 9.2 mg/dL 8.6-10.3 Total Protein 7.4 g/dL 6.4-8.9 Albumin 4.0 g/dL 3.2-5.2 Globulin 3.4 g/dL 2-4 Albumin/Globulin Ratio 1.2 1-3 Total Bilirubin 0.30 mg/dL 0.2-1.0 Alkaline Phosphatase 76 U/L 34-104 Alt 8 U/L 7-52 Ast 16 U/L 13-39 Egfr Non- 30.4 >60 Egfr 39.1 >60 2 Laboratory test finding 05/02/2017 Lipase 33 U/L 11.0-82.0 CRP High Sensitivity 2.07 mg/L 3 Culture Urine Inhouse 03/08/2017 Colonies negative 4 Urine Micro Inhouse 03/08/2017 Ua WBC TNTC 4 Ua RBC TNTC 4 Ua Casts - 4 Ua Epi 0-2 4 Ua Other - 4 Ua Glucose - 4 Ua Bilirubin - 4 Ua Ketones - 4 Ua Specific [place] 1.010 4 Ua Blood 3+ 4 Ua PH 6.0 4 Ua Protein - 4 Ua Urobilinogen - 4 Ua Nitrite - 4 Ua Leukocytes 2+ 4 CBC Auto Diff 02/23/2017 White Blood Count 8.0 10^3/uL 3.5-10.8 Red Blood Count 3.95 10^6/uL Low 4.0-5.4 Hemoglobin 11.4 g/dL Low 12.0-16.0 Hematocrit 35 % 35-47 Mean Corpuscular Volume 89 fL 80-97 Mean Corpuscular Hemoglobin 29 pg 27-31 Mean Corpuscular HGB Conc 33 g/dL 31-36 Red Cell Distribution Width 14 % 10.5-15 Platelet Count 272 10^3/uL 150-450 Mean Platelet Volume 7 um3 Low 7.4-10.4 Abs Neutrophils 5.6 10^3/uL 1.5-7.7 Abs Lymphocytes 1.5 10^3/uL 1.0-4.8 Abs Monocytes 0.5 10^3/uL 0-0.8 Abs Eosinophils 0.2 10^3/uL 0-0.6 Abs Basophils 0.1 10^3/uL 0-0.2 Abs Nucleated RBC 0 10^3/uL Granulocyte % 70.1 % 38-83 Lymphocyte % 18.9 % Low 25-47 Monocyte % 6.7 % 1-9 Eosinophil % 2.9 % 0-6 Basophil % 1.4 % 0-2 Nucleated Red Blood Cells % 0 Laboratory test finding 02/22/2017 Urine Culture And SEE RESULT BELOW 5 Sensitivities Ua Inhouse 02/22/2017 Ua Glucose - 6 Ua Bilirubin - 6 Ua Ketones - 6 Ua Specific [place] 1.015 6 Ua Blood 3+ 6 Ua PH 6.0 6 Ua Protein tr 6 Ua Urobilinogen - 6 Ua Nitrite - 6 Ua Leukocytes 2+ 6 Urinalysis Profile 02/13/2017 Urine Color Yellow Urine Appearance Cloudy Urine Specific [place] 1.010 1.010-1.030 Urine pH 5.0 5-9 Urine Urobilinogen Negative Negative Urine Ketones Negative Negative Urine Protein Negative Negative Urine Leukocytes 2+ Negative Urine Blood 3+ Negative Urine Nitrite Positive Negative Urine Bilirubin Negative Negative Urine Glucose Negative Negative Urine White Blood Cell 3+(>20/hpf) Absent Urine Red Blood Cell 1+(3-5/hpf) Absent Urine Bacteria 1+ Absent Urine Squamous Epithelial Cell Present Absent Laboratory test finding 02/13/2017 Potassium Redraw 3.8 mmol/L 3.5-5.0 Magnesium 2.1 mg/dL 1.9-2.7 Ast Redraw 19 U/L 13-39 Urine Culture And Sensitivities SEE RESULT BELOW 7 CBC Auto Diff 02/13/2017 Red Blood Count 4.03 10^6/uL 4.0-5.4 Hemoglobin 11.9 g/dL Low 12.0-16.0 Hematocrit 36 % 35-47 Mean Corpuscular Volume 88 fL 80-97 Mean Corpuscular Hemoglobin 30 pg 27-31 Mean Corpuscular HGB Conc 33 g/dL 31-36 Red Cell Distribution Width 14 % 10.5-15 White Blood Count 13.9 10^3/uL High 3.5-10.8 Platelet Count 338 10^3/uL 150-450 Mean Platelet Volume 9 um3 7.4-10.4 Abs Neutrophils 10.9 10^3/uL High 1.5-7.7 Abs Lymphocytes 2.0 10^3/uL 1.0-4.8 Abs Monocytes 0.8 10^3/uL 0-0.8 Abs Eosinophils 0.1 10^3/uL 0-0.6 Abs Basophils 0.1 10^3/uL 0-0.2 Granulocyte % 78.4 % 38-83 Lymphocyte % 14.4 % Low 25-47 Monocyte % 5.5 % 1-9 Eosinophil % 0.6 % 0-6 Basophil % 1.1 % 0-2 Laboratory test finding 02/13/2017 Troponin-I (TnI) 0.01 ng/mL <0.04 Comp Metabolic Panel 02/13/2017 Sodium 135 mmol/L 133-145 Chloride 99 mmol/L Low 101-111 Co2 Carbon Dioxide 29 mmol/L 22-32 Glucose 100 mg/dL 70-100 Blood Urea Nitrogen 32 mg/dL High 6-24 Creatinine 1.47 mg/dL High 0.51-0.95 BUN/Creatinine Ratio 21.8 High 8-20 Calcium 10.8 mg/dL High 8.6-10.3 Total Protein 7.8 g/dL 6.4-8.9 Albumin 3.9 g/dL 3.2-5.2 Globulin 3.9 g/dL 2-4 Albumin/Globulin Ratio 1.0 1-3 Total Bilirubin 0.70 mg/dL 0.2-1.0 Alkaline Phosphatase 54 U/L 34-104 Alt 10 U/L 7-52 Egfr Non- 34.3 >60 Egfr 44.1 >60 8 Potassium TNP mmol/L 3.5-5.0 Anion Gap 7 mmol/L 2-11 Ast TNP U/L 13-39 Laboratory test finding 02/13/2017 TSH (Thyroid Stim Horm) 3.89 mcIU/mL 0.34-5.60 Magnesium TNP mg/dL 1.9-2.7 Laboratory test finding 02/07/2017 Anti Nuclear Antibody 1.5 U 9, 10 CBC Auto Diff 02/07/2017 White Blood Count 8.3 10^3/uL 3.5-10.8 9 Red Blood Count 4.07 10^6/uL 4.0-5.4 9 Hemoglobin 12.0 g/dL 12.0-16.0 9 Hematocrit 37 % 35-47 9 Mean Corpuscular Volume 90 fL 80-97 9 Mean Corpuscular Hemoglobin 29 pg 27-31 9 Mean Corpuscular HGB Conc 33 g/dL 31-36 9 Red Cell Distribution Width 14 % 10.5-15 9 Platelet Count 276 10^3/uL 150-450 9 Mean Platelet Volume 8 um3 7.4-10.4 9 Abs Neutrophils 6.2 10^3/uL 1.5-7.7 9 Abs Lymphocytes 1.4 10^3/uL 1.0-4.8 9 Abs Monocytes 0.5 10^3/uL 0-0.8 9 Abs Eosinophils 0.2 10^3/uL 0-0.6 9 Abs Basophils 0.1 10^3/uL 0-0.2 9 Abs Nucleated RBC 0.01 10^3/uL 9 Granulocyte % 74.3 % 38-83 9 Lymphocyte % 16.8 % Low 25-47 9 Monocyte % 6.1 % 1-9 9 Eosinophil % 2.0 % 0-6 9 Basophil % 0.8 % 0-2 9 Nucleated Red Blood Cells % 0.1 9 Comp Metabolic Panel 02/07/2017 Sodium 140 mmol/L 133-145 9 Potassium 3.3 mmol/L Low 3.5-5.0 9 Chloride 100 mmol/L Low 101-111 9 Co2 Carbon Dioxide 33 mmol/L High 22-32 9 Anion Gap 7 mmol/L 2-11 9 Glucose 104 mg/dL High 70-100 9 Blood Urea Nitrogen 41 mg/dL High 6-24 9 Creatinine 1.54 mg/dL High 0.51-0.95 9 BUN/Creatinine Ratio 26.6 High 8-20 9 Calcium 10.3 mg/dL 8.6-10.3 9 Total Protein 7.6 g/dL 6.4-8.9 9 Albumin 4.2 g/dL 3.2-5.2 9 Globulin 3.4 g/dL 2-4 9 Albumin/Globulin Ratio 1.2 1-3 9 Total Bilirubin 0.70 mg/dL 0.2-1.0 9 Alkaline Phosphatase 59 U/L 34-104 9 Alt 11 U/L 7-52 9 Ast 21 U/L 13-39 9 Egfr Non- 32.5 >60 9 Egfr 41.8 >60 9, 11 Laboratory test finding 02/07/2017 Erythrocyte Sed Rate 54 mm/Hr High 0- 40 9 Hemoglobin A1c (Glyco HGB) 5.7 % High 4.0-5.6 9, 12 TSH (Thyroid Stim Horm) 2.92 mcIU/mL 0.34-5.60 9 Urinalysis Profile 02/07/2017 Urine Color Yellow 9 Urine Appearance Cloudy 9 Urine Specific [place] 1.012 1.010-1.030 9 Urine pH 5.0 5-9 9 Urine Urobilinogen Negative Negative 9 Urine Ketones Negative Negative 9 Urine Protein Negative Negative 9 Urine Leukocytes 2+ Negative 9 Urine Blood 3+ Negative 9 Urine Nitrite Negative Negative 9 Urine Bilirubin Negative Negative 9 Urine Glucose Negative Negative 9 Urine White Blood Cell 3+(>20/hpf) Absent 9 Urine Red Blood Cell 3+(>10/hpf) Absent 9 Urine Bacteria 1+ Absent 9 Urine Squamous Epithelial Cell Present Absent 9 Urine Hyaline Casts Present Absent 9 Laboratory test finding 02/07/2017 Vitamin B12 372 pg/mL 180-914 9, 13 Vitamin D Total 25(Oh) 50.9 ng/mL High 20-50 9 Magnesium 2.1 mg/dL 1.9-2.7 9 Urine Culture And Sensitivities SEE RESULT BELOW 9, 14 CBC Auto Diff 12/26/2016 White Blood Count 8.0 10^3/uL 3.5-10.8 Red Blood Count 3.94 10^6/uL Low 4.0-5.4 Hemoglobin 11.5 g/dL Low 12.0-16.0 Hematocrit 35 % 35-47 Mean Corpuscular Volume 90 fL 80-97 Mean Corpuscular Hemoglobin 29 pg 27-31 Mean Corpuscular HGB Conc 33 g/dL 31-36 Red Cell Distribution Width 13 % 10.5-15 Platelet Count 256 10^3/uL 150-450 Mean Platelet Volume 8 um3 7.4-10.4 Abs Neutrophils 5.5 10^3/uL 1.5-7.7 Abs Lymphocytes 1.7 10^3/uL 1.0-4.8 Abs Monocytes 0.6 10^3/uL 0-0.8 Abs Eosinophils 0.2 10^3/uL 0-0.6 Abs Basophils 0 10^3/uL 0-0.2 Abs Nucleated RBC 0 10^3/uL Granulocyte % 68.9 % 38-83 Lymphocyte % 21.6 % Low 25-47 Monocyte % 6.9 % 1-9 Eosinophil % 2.0 % 0-6 Basophil % 0.6 % 0-2 Nucleated Red Blood Cells % 0 Total Protein 24HR Urine 12/26/2016 Urine Collection Time 24 Urine Total Volume 1750 mL Urine Random Total Protein 11 mg/dL Urine Total Protein/24HR 192 mg/24Hr High 0-165 Creatinine Clearance 12/26/2016 Urine Collection Time 24 Urine Total Volume 1750 mL Urine Random Creatinine 44.46 mg/dL Creatinine 1.82 mg/dL High 0.51-0.95 Creatinine Clearance 30 mL/min Low 88-128 Comp Metabolic Panel 12/26/2016 Sodium 138 mmol/L 133-145 Potassium 3.8 mmol/L 3.5-5.0 Chloride 98 mmol/L Low 101-111 Co2 Carbon Dioxide 32 mmol/L 22-32 Anion Gap 8 mmol/L 2-11 Glucose 78 mg/dL 70-100 Blood Urea Nitrogen 26 mg/dL High 6-24 Creatinine 1.87 mg/dL High 0.51-0.95 One Over Creatinine 0.53 mg/dL 0.51-0.95 BUN/Creatinine Ratio 13.9 8-20 Calcium 9.5 mg/dL 8.6-10.3 Total Protein 7.2 g/dL 6.4-8.9 Albumin 3.9 g/dL 3.2-5.2 Globulin 3.3 g/dL 2-4 Albumin/Globulin Ratio 1.2 1-3 Total Bilirubin 0.60 mg/dL 0.2-1.0 Alkaline Phosphatase 56 U/L 34-104 Alt 7 U/L 7-52 Ast 17 U/L 13-39 Egfr Non- 26.0 >60 Egfr 33.4 >60 15 Lipid Profile (Trig/Chol/HDL) 12/26/2016 Triglycerides 75 mg/dL 16 Cholesterol 152 mg/dL 17 HDL Cholesterol 68.4 mg/dL 18 LDL Cholesterol 69 mg/dL 19 Liver Function Panel 12/26/2016 Direct Bilirubin 0.10 mg/dL 0.03-0.18 Indirect Bilirubin 0.5 mg/dL 0.3-1.0 Laboratory test finding 12/26/2016 Uric Acid 6.1 mg/dL 2.3-6.6 20 Phosphorus 3.2 mg/dL 2.5-5.0 21 Magnesium 2.4 mg/dL 1.9-2.7 22 Laboratory test finding 10/10/2016 Hemoglobin A1c 5.4 Ua Inhouse 07/11/2016 Ua Glucose - 23 Ua Bilirubin sm 23 Ua Ketones - 23 Ua Specific [place] 1.005 23 Ua Blood mod 23 Ua PH 5.0 23 Ua Protein see notes 23 Ua Urobilinogen - 23 Ua Nitrite + 23 Ua Leukocytes mod 23 Culture Urine Inhouse 07/11/2016 Colonies 12/25 23 Ua Inhouse 07/06/2016 Ua Glucose - 24 Ua Bilirubin - 24 Ua Ketones - 24 Ua Specific [place] 1.025 24 Ua Blood 3+ 24 Ua PH 5.0 24 Ua Protein 4+ 24 Ua Urobilinogen - 24 Ua Nitrite - 24 Ua Leukocytes 3+ 24 Comp Metabolic Panel 03/22/2016 Sodium 137 mmol/L 133-145 Potassium 3.8 mmol/L 3.5-5.0 Chloride 98 mmol/L Low 101-111 Co2 Carbon Dioxide 33 mmol/L High 22-32 Anion Gap 6 mmol/L 2-11 Glucose 87 mg/dL 70-100 Blood Urea Nitrogen 34 mg/dL High 6-24 Creatinine 1.60 mg/dL High 0.51-0.95 BUN/Creatinine Ratio 21.3 High 8-20 Calcium 9.9 mg/dL 8.6-10.3 Total Protein 7.3 g/dL 6.4-8.9 Albumin 4.0 g/dL 3.2-5.2 Globulin 3.3 g/dL 2-4 Albumin/Globulin Ratio 1.2 1-3 Total Bilirubin 0.70 mg/dL 0.2-1.0 Alkaline Phosphatase 65 U/L 34-104 Alt 5 U/L Low 7-52 Ast 13 U/L 13-39 Egfr Non- 31.2 >60 Egfr 40.1 >60 25 Laboratory test finding 03/22/2016 Vitamin D, 1,25 Dihydroxy 43 pg/mL 18- 78 26 Pthi 03/22/2016 Calcium (PTH Intact) 9.9 mg/dL 8.6-10.3 PTH Intact 4.2 pmol/L 1.3-9.3 Laboratory test finding 03/22/2016 Vitamin D Total 25(Oh) 40.0 ng/mL 30- 50 27 Laboratory test finding 02/10/2016 Hemoglobin A1c 5.4 Urine Micro Inhouse 01/08/2016 Ua WBC 10-15 28 Ua RBC 5-10 28 Ua Casts - 28 Ua Epi - 28 Ua Other - 28 Ua Glucose - 28 Ua Bilirubin - 28 Ua Ketones - 28 Ua Specific [place] 1.015 28 Ua Blood lg 28 Ua PH 6.0 28 Ua Protein tr 28 Ua Urobilinogen - 28 Ua Nitrite - 28 Ua Leukocytes - 28 Laboratory test finding 12/15/2015 Vitamin D Total 25(Oh) 38.1 ng/mL 30- 50 29 Comp Metabolic Panel 12/15/2015 Sodium 138 mmol/L [...] Egfr Non- 31.4 >60 Egfr 40.4 >60 30 Pthi 12/15/2015 Calcium (PTH Intact) 9.8 mg/dL 8.6-10.3 PTH Intact 4.3 pmol/L 1.3-9.3 1 SEE RESULT BELOW Name: NERIS PERDOMO : [address]: Sai Kerns MD Acct: [id number] Unit: [id number] AGE: 81 Location: ED Re05/02/17 SEX: F Status: DEP ER SPEC: [id number] HELLEN: 05/02/[address]: Zhanna CLEANING REQ: [id number] RECD: 05/02/17 STATUS: WILL GREWAL DR: Chloe Kerns MD _ SOURCE: URINE SPDESC: ORDERED: Urine Culture Procedure Result Reported Site Urine Culture Final 05/03/17- 1616 ML No Growth (<1,000 CFU/mL) * ML - MAIN LAB ([facility]) . END OF REPORT * ML=Testing performed at Main Lab DEPARTMENT OF PATHOLOGY, [address] [place] [address] Chase Moore M.D. Director [facility] # [id number] 2 Because ethnic data is not always readily [...] 15-29 5 Kidney failure <15 (or dialysis) 3 Low risk: <1.00 Average risk: 1.00-3.00 High risk: >3.00 4 turbid, hazy, yellow 5 SEE RESULT BELOW Name: NERIS PERDOMO : [address]: Caroline CLEANING Acct: [id number] Unit: [id number] AGE: 81 Location: [facility] Re02/22/17 SEX: F Status: REG REF SPEC: [id number] HELLEN: 02/22/17-[address]: Caroline CLEANING REQ: [id number] RECD: 02/23/17 STATUS: COMP _ SOURCE: URINE SPDESC: ORDERED: Urine Culture COMMENTS: [id number] Urine Source: Random Procedure Result Reported Site Urine Culture Final 02/25/17- 0751 ML No Growth (<1,000 CFU/mL) * ML - MAIN LAB ([facility]) . END OF REPORT * ML=Testing performed at Main Lab DEPARTMENT OF PATHOLOGY, [address] [place] [address] Chase Moore M.D. Director [facility] # [id number] 6 void, hazy, dark yellow 7 SEE RESULT BELOW Name: PREDOMONERIS : [address]: Panfilo Baxter MD Acct: [id number] Unit: [id number] AGE: 81 Location: ED Re02/13/17 SEX: F Status: REG ER SPEC: [id number] HELLEN: 02/13/[address] [facility] [address]: Panfilo Baxter MD REQ: [id number] RECD: 02/13/17 STATUS: WILL GREWAL DR: Chloe SONGC _ [facility] ORDERED: Urine Culture Procedure Result Reported Site Urine Culture Final 02/14/17- 1052 ML Organism 1 AEROCOCCUS SPECIES [place] Count 75-100,000 (Many) CFU/ML Aerococcus isolates are too fastidious for routine susceptibility studies. Aerococcus are usually susceptible to penicillin, amoxicillin, piperacillin, cefipime, rifampin and vancomycin. Moderate to good activity occurs with the quinolones, tetracyclines and erythromycin. ([employer] [place] and Textbook of Diagnostic Microbiology 6th Ed. 2006, p. 705-6.) * ML - MAIN LAB ([facility]) . END OF REPORT * ML=Testing performed at Main Lab DEPARTMENT OF PATHOLOGY, [address] [place] [address] Chase Moore M.D. Director [facility] # [id number] 8 Because ethnic data is not always readily [...] 15-29 5 Kidney failure <15 (or dialysis) [address] Palafox per pt request 02/12/17. 10 Interpretation: Weak Positive (1.1-2.9) REFERENCE VALUE <=1.0 (Negative) Test Performed by: [place] [address] 11 Because ethnic data is not always readily [...] 15-29 5 Kidney failure <15 (or dialysis) 12 Therapeutic target for the treatment of diabetes mellitus patients is <7% HBA1C, and in selective patients <6.0%. Please refer to [place] [employer] diabetic care guidelines for further information. 13 Normal Range 180 to 914 Indeterminate Range 145 to 180 Deficient Range <145 14 SEE RESULT BELOW Name: NERIS PERDOMO Bianca : [address]: Chloe GARCIA Acct: [id number] Unit: [id number] AGE: 81 Location: [facility] Re02/07/17 SEX: F Status: REG REF SPEC: [id number] HELLEN: 02/07/[address]: Chloe GARCIA REQ: [id number] RECD: 02/07/17 STATUS: COMP _ SOURCE: URINE SPDESC: ORDERED: Urine Culture Procedure Result Reported Site Urine Culture Final 02/09/17- 1029 ML Organism 1 AEROCOCCUS SPECIES [place] Count >100,000 (Many) CFU/ML Aerococcus isolates are too fastidious for routine susceptibility studies. Aerococcus are usually susceptible to penicillin, amoxicillin, piperacillin, cefipime, rifampin and vancomycin. Moderate to good activity occurs with the quinolones, tetracyclines and erythromycin. ([employer] [facility] and Textbook of Diagnostic Microbiology 6th Ed. 2006, p. 705-6.) * ML - MAIN LAB ([facility]) . END OF REPORT * ML=Testing performed at Main Lab DEPARTMENT OF PATHOLOGY, [address] [place] [address] Chase Moore M.D. Director [facility] # [id number] 15 Because ethnic data is not always readily [...] 15-29 5 Kidney failure <15 (or dialysis) 16 Desirable <150 Borderline high 150-199 High 200-499 Very High >500 17 Desirable <200 Borderline high 200-239 High >239 18 Low <40 Desirable: 40-60 High: >60 19 Desirable: <100 mg/dL Near Optimal: 100-129 mg/dL Borderline High: 130-159 mg/dL High: 160-189 mg/dL Very High: >189 mg/dL 20 FASTING 21 FASTING 22 FASTING 23 Urine is voided, clear and the color is orange, effecting the reading of Protein. SL KH aware, read culture 24 void, hazy, brown 25 Because ethnic data is not always [...] 5 Kidney failure <15 (or dialysis) 26 ADDITIONAL INFORMATION This test was developed and its performance characteristics determined by [facility] in a manner consistent with CLIA requirements. This test has not been cleared or approved by the U.S. Food and Drug Administration. Test Performed by: [facility] - [address] [address] Order Manager: Yayo Harding II, M.D., Ph.D. 27 PRN VALID 12/08/15-06/06/16 CC: DR. APLAFOX, DR. PINEDO, DR. SILVA 28 void, clear, gold 29 standing order 30 Because ethnic data is not always readily [...] 15-29 5 Kidney failure <15 (or dialysis) Procedures Date CPT Code Description Status Comment 04/11/2017 Diabetic Foot Exam Completed decreased sensation ball of foot and toes 03/29/2017 Diabetic Retinal Eye Exam Completed 03/29/17 Dr. Cruz Document: 01/24/16 - Dr. Deleon Document: 07/24/16 - Kaye Deleon, DO 03/12/2017 [id number] Inject/Drain Joint/Bursa Completed Intermediate 06/01/2015 Mammogram Completed 03/26/2014 Colonoscopy Completed Encounters Type Date Location Provider CPT E/M Dx Office Visit 05/05/2017 9:30a [place] [address] N39.0 N20.0 M25.521 E11.22 Office Visit 04/11/2017 11:40a [place] [address] M25.521 L03.113 E11.42 E11.22 N20.0 M15.0 Z12.31 Z79.891 Office Visit 03/12/2017 11:00a Main Office Gal Villa D.O. 88226 M25.521 M70.31 Office Visit 03/08/2017 1:40p Main Office Macy Deras [address]387 R30.0 N39.0 I10 N18.9 Office Visit 02/22/2017 4:00p Main Office Macy Deras 85277 R63.4 N18.9 M54.5 Office Visit 02/07/2017 10:40a [place] [address] R63.4 N18.9 M48.05 E11.9 I25.10 Office Visit 12/20/2016 11:20a [place] [address] E11.9 N18.9 M15.0 Z23 Office Visit 10/10/2016 11:25a [place] [address] E11.9 G47.30 M15.0 N18.9 M81.0 Office Visit 07/11/2016 11:25a [place] [address] M15.0 E11.9 N18.9 N39.0 Office Visit 07/06/2016 3:55p [place] [address] N39.0 R31.0 R30.0 Office Visit 04/12/2016 1:00p [place] [address] M25.521 E11.9 M15.0 M48.05 Z79.891 Office Visit 02/10/2016 12:55p Main Office Yayo Silva M.D. 29328 E11.9 Z71.89 M15.0 Office Visit 01/08/2016 10:00a Main Office Yayo Silva M.D. 31379 M15.0 Z71.89 M48.05 Z23 Z41.8 Office Visit 11/25/2015 9:15a Main Office Yayo Silva M.D. 08583 Z71.89 M15.0 M48.05 Z90.49 M80.88xS I25.10 R68.2 Z79.891 E66.3 Z68.39 Plan of Care 05/05/2017 - Chloe Singh PAN39.0 Urinary tract infection, site not specifiedNew Medication:Nitrofurantoin Monohyd Macro 100 mgComments:UTI dx in ER , pt put on bactrim but reported allergic reaction (itching) so stopped taking it. Will trial macrobid instead. Pt instructed to push fluids and call if sx do not resolve. She has upcoming appt w urology.N20.0 Calculus of kidneyComments: Kidney stone on recent imaging. Patient has appt w urology.M25.521 Pain in right elbowComments:Continue tennis elbow strap and pain medications as prescribed. Pt will f/u with ortho next week.E11.22 Type 2 diabetes mellitus w diabetic chronic kidney diseaseComments:Last A1C very good at 5.7. Monitor.
[2017-05-19 08:09] LABS: ABS Basophils 0.1 10^3/ul (0-0.2); ABS Eosinophils 0.2 10^3/ul (0-0.6); ABS Lymphocytes 1.4 10^3/ul (1.0-4.8); ABS Monocytes 0.5 10^3/ul (0-0.8); ABS Neutrophils 5.8 10^3/ul (1.5-7.7); ABS Nucleated RBC 0 10^3/ul; Eosinophil % 2.3 % (0-6); Hematocrit 31 % (35-47); Hemoglobin 10.2 g/dl (12.0-16.0); INR 0.86 (0.77-1.02); Lymphocyte % 17.3 % (25-47); Mean Corpuscular HGB Conc 33 g/dl (31-36); Mean Corpuscular Hemoglobin 30 pg (27-31); Mean Corpuscular Volume 91 fL (80-97); Mean Platelet Volume 7 um3 (7.4-10.4); Nucleated Red Blood Cells % 0.1; Platelet Count 233 10^3/ul (150-450); Red Cell Distribution Width 14 % (10.5-15); White Blood Count 7.9 10^3/ul (3.5-10.8)
[2017-05-19] MEDS ORDERED: Ondansetron INJ* 2 MG/ML VIAL IV ONE (08:09)
[2017-05-19] MEDS ORDERED: Morphine INJ* 4 MG/ML 1 ML SYRINGE (NEW SYRINGE VERSION) IV ONE ×2 (08:09→12:40)
[2017-05-19] MEDS ORDERED: NS 0.9% 1000 ML* 1,000 ML IV SCH ×2 (08:15→13:00)
[2017-05-19 08:21] LABS: EGFR Non-African American 33.5 (>60)
[2017-05-19] MEDS ORDERED: Iodixanol* (CONTRAST) 320 MG/ML 100 ML SDV IV ONE (08:33)
--- NOTE | 2017-05-19 11:01 | RAD ---
Indication: History of diverticulitis. Contrast: Administered 104.1 ml of VISAPAQUE 320 mg/ml CT of the abdomen and pelvis was performed after oral and IV contrast administration. Coronal and sagittal reconstructed images were obtained. Comparison is made with previous exam dated May 03, 2016. Lung bases demonstrate no pleural fluid, nodules or masses. Heart is mildly enlarged without evidence of pericardial effusion. Liver is normal in size. No focal lesions or intrahepatic ductal dilatation is noted. The pancreas demonstrates no mass or pancreatic duct dilatation. The spleen is normal in size. No adrenal masses are noted. The kidneys demonstrates thinning of the cortex bilaterally. Multiple cysts are noted in the kidneys. No hydronephrosis of either kidney is noted. Aorta and inferior vena cava are normal. No dilated loops of bowel are noted. The gallbladder demonstrates no calcified gallstones. The common duct is not dilated. Aorta and inferior vena cava are unremarkable. The urinary bladder is distended. Calcifications are noted in a structure resembling the left ovary. The patient is status post hysterectomy. No abnormal pelvic adenopathy is noted. Small bowel demonstrates no abnormal dilatation. There is contrast in the rectum. No definite diverticulitis is noted. IMPRESSION: Cortical cysts in the kidneys. No evidence of diverticulitis is noted with contrast in the rectum. No abnormal dilatation of bowel is noted. Patient is status post hysterectomy. Coarse calcification in the left adnexa is unchanged from May 02, 2017.
[2017-05-19] MEDS ORDERED: Ondansetron INJ* 2 MG/ML VIAL IV PRN (12:47)
[2017-05-19] MEDS ORDERED: Dextrose 50% Syringe 50 ML* 25 GM/50 ML SYRINGE IV PUSH PRN (13:08)
[2017-05-19 13:20] LABS: Hematocrit 31 % (35-47)
[2017-05-19 13:36] LABS: Urine Appearance Clear; Urine Blood 2+ (Negative); Urine Color Straw; Urine Ketones Negative (Negative); Urine Protein Negative (Negative); Urine Specific Gravity 1.024 (1.010-1.030); Urine Urobilinogen Negative (Negative)
[2017-05-19] MEDS: Insulin LISPRO* 1 UNITS UNIT SUBCUT SCH ×2 (17:34→20:07)
[2017-05-19] MEDS: Diltiazem TAB* 60 MG PO SCH (17:50)
--- NOTE | 2017-05-19 19:59 | HP ---
CC: Chloe Singh NP * HISTORY AND PHYSICAL: DATE OF ADMISSION: 05/19/17 PRIMARY CARE PROVIDER: Chloe Singh NP CHIEF COMPLAINT: Bloody stool. HISTORY OF PRESENT ILLNESS: Ms. Perdomo is a 81-year-old female who has had history of diverticular bleed in 2015 status post partial colectomy who now presents to the emergency room with complaints of burgundy colored stool per rectum. The patient states that yesterday was an essentially normal day for her. She woke up at approximately at 4 a.m. and felt the urge to go to the bathroom. She states that she ended up passing what she estimates to be one half cup of maroon/burgundy colored stool and the patient went back to bed. She had no associated pain with that. At approximately 6 a.m., the patient again woke up and passed another maroon/burgundy colored stool. Again, she estimates that to be about half a cup. This reminded of her previous hemorrhage. At that point, she decided to come to the emergency room for evaluation. The patient has had no pain whatsoever this morning. She does state that approximately 30 minutes prior to my evaluation of her in the emergency room that she had crampy pain within her pelvis. Approximately 10 minutes after that, she passed another bloody bowel movement. She states that the previous blood that she passed was somewhat thick in nature, this seemed thinner to her. She denies any recent fevers or chills and again she states that she has been feeling well over the last several days. PAST MEDICAL HISTORY: 1. Coronary artery disease. 2. Hypertension. 3. Type 2 diabetes. 4. History of left lower extremity DVT. 5. Stage 3 chronic kidney disease. 6. Obstructive sleep apnea without the use of CPAP. 7. Osteoporosis. PAST SURGICAL HISTORY: 1. Right carpal tunnel release. 2. Partial colectomy. 3. Bilateral total knee replacements. 4. Hysterectomy. 5. Cataract extraction. MEDICATIONS: 1. Cranberry 8400 mg p.o. daily. 2. Multivitamin 1 tab p.o. daily. 3. Ferrous sulfate 325 mg p.o. daily. 4. Colace 100 mg p.o. daily. 5. Valtrex 500 mg p.o. twice daily. 6. Travatan Z 1 drop to both eyes at bedtime. 7. Omeprazole 20 mg p.o. b.i.d. 8. Potassium chloride 10 mEq p.o. daily. 9. Cod liver oil 1 cap p.o. daily. 10. Percocet 5/325, 1 tab p.o. q.h.s. p.r.n. pain. 11. Diltiazem 180 mg p.o. daily. 12. Vitamin A 10,000 units p.o. daily. 13. Simvastatin 20 mg p.o. q.h.s. 14. Lisinopril 10 mg p.o. daily. 15. Calcium Plus D3, 1 tab p.o. twice daily. 16. Aspirin 81 mg p.o. daily. 17. Triamcinolone ointment applied topically twice daily. 18. Nitroglycerin 0.4 mg SL q.5 minutes p.r.n. chest pain. 19. Prolia 60 mg subcutaneous q.6 months. 20. Tramadol 50 mg p.o. q.6 hours p.r.n. pain. ALLERGIES: PENICILLIN. FAMILY HISTORY: Mom of cancer. Dad of cancer, but he also had a history of black lung disease. The patient had 1 brother who had a history of coronary disease, end-stage renal disease and bipolar disorder. SOCIAL HISTORY: The patient is a lifelong nonsmoker. She does not drink alcohol. She does not use any recreational drugs. She is disabled secondary to arthritis. She is . Her ; however, resides in a long-term. She has 6 children. She indicates that her son, Stephen Perdomo would be her healthcare proxy in the event she is unable to make her own medical decisions. REVIEW OF SYSTEMS: A complete 11-system review of systems is obtained. Pertinent positives and negatives are as per HPI and in addition the patient does state that she has been constipated recently. However, she does indicate that her last bowel movement was sports internship of 05/18/17. PHYSICAL EXAMINATION GENERAL: The patient is a well-developed elderly female, seen lying in the stretcher, in no acute distress. VITAL SIGNS: Blood pressure 133/57, pulse 68, respirations 14, temperature 98, O2 sat 94% on room air. HEENT: Pupils are equal and round. There is arcus senilis bilaterally. Extraocular muscles are intact. Oropharynx is clear. Oral mucosa is moist. There is no submandibular, cervical, or subclavicular adenopathy. Thyroid is not enlarged. No thyroid nodules noted. PULMONARY: Lungs are clear to auscultation bilaterally. CARDIAC: Normal S1 and S2. Regular rate and rhythm. I do not appreciate any murmurs. There is no lower extremity edema. ABDOMEN: Bowel sounds are present. Abdomen is soft, nondistended. She is tender to palpation in the left lower quadrant and slightly in the right upper quadrant. MUSCULOSKELETAL: There is no cyanosis or clubbing in the digits. There is full active range of motion of all 4 extremities. SKIN: Warm and dry. There are no rashes. NEUROLOGIC: Cranial nerves II through XII are grossly intact. Sensation is intact to light touch throughout. Strength is 5/5 and symmetrical in both upper and lower extremities bilaterally. PSYCH: The patient is alert. She is oriented x3. Affect appears appropriate. LABORATORY DATA/DIAGNOSTIC STUDIES: WBC 7.9, hemoglobin 10.2, hematocrit 31, and platelets 233,000. INR 0.86. Sodium 138, potassium 3.9, chloride 104, CO2 of 27, BUN 42, creatinine 1.50, glucose 103, lactic acid 1.2, calcium 9.2, magnesium 2.1, bilirubin 0.4, AST 16, ALT 10, alk phos 59, troponin 0.01. CRP 2.32. Albumin 3.6, amylase 69, lipase 23. EKG reveals normal sinus rhythm with right bundle branch block and left anterior fascicular block. This is unchanged from EKG, January 2017. CT of abdomen and pelvis reveals cortical cyst in the kidneys. No evidence of diverticulitis as noted with contrast in the rectum. No abnormal dilation of the bowel was noted. The patient is status post hysterectomy. There are coarse calcifications in the left adnexa, which is unchanged from 05/02/17. ASSESSMENT AND PLAN: Ms. Perdomo is a 81-year-old female who has a history of significant GI hemorrhage requiring partial colectomy for diverticular bleed, coronary artery disease on aspirin, hypertension, type 2 diabetes, stage 3 chronic kidney disease, and obstructive sleep apnea who presents to the emergency room with complaints of maroon/burgundy colored stool per rectum on the morning of admission. 1. GI bleed. This likely represents lower GI bleed. She has not passed a tremendous amount of stool. Her hemoglobin is mildly down from prior check, 10/10. The patient's aspirin will be held. She will be monitored on the medical floor. Hemoglobin and hematocrit will be obtained at 2 p.m. to see where her levels are trending. Dr. Alexander from GI has consulted on the patient. At this time, he is not recommending an urgent scope. However, if she is to start bleeding more profusely, he does recommend obtaining bleeding scan. 2. Hypertension. The patient's blood pressure at this point is mildly elevated. I will continue her diltiazem; however, change from long acting to short acting formulation in case her blood pressure drops. 3. Coronary artery disease. The patient has no complaints of chest pain at this time. Her first troponin is negative. As above, her aspirin will be held. I will; however, continue her simvastatin. 4. Type 2 diabetes. This is diet controlled. I will check an A1c. She will be placed on fingersticks a.c. and h.s. with lispro coverage. 4. Stage 3 chronic kidney disease. The patient's creatinine is at her baseline. We will continue to follow this intermittently. 5. DVT prophylaxis. According to the Adult Thrombosis Prophylaxis Risk Factor Assessment Guide, the patient has a total risk factor score of 7, making her high risk. SCDs alone will be utilized as DVT prophylaxis. She will not receive chemical prophylaxis secondary to the GI bleed. 6. Code status is full. TIME SPENT: Sixty five minutes was spent admitting this patient. [id number]/[facility] #: [id number] LESLIE
[2017-05-19] MEDS: Atorvastatin* 10 MG TAB PO SCH (20:09)
[2017-05-19] MEDS: Omeprazole CAP* 20 MG PO SCH (20:09)
--- NOTE | 2017-05-19 20:15 | CONS ---
GASTROENTEROLOGY CONSULT: DATE: 05/19/17 CONSULTING PHYSICIAN: Dr. Lubna Jessica. REASON FOR CONSULT: LGI bleeding HISTORY OF PRESENT ILLNESS: This 81-year-old woman who had a descending colectomy, September 2014, for relapsing diverticular bleeding and has history of mild renal insufficiency and coronary disease, (status post stenting about 10 years ago) had been feeling well until around 4:00 a.m. this morning when she began to pass blood. Yesterday, she had had an unremarkable average day. This morning, she awakened with the sense that she needed to go to the bathroom. She was not dizzy. She passed a mixed loose bloody stool. She has had a couple of more passages and the most recent one in the ER was the most liquid yet. She continues not to have any abdominal pain. She has generally been okay in the last few months, though the ER record shows a visit for right elbow epicondylitis 3 days ago and 10 days ago, labs per Dr. Carpio for a kidney stone and back pain event 2-1/2 weeks ago. There have also been a couple of visits for weight loss, 02/07/17 and 02/23/17. She had had a number of LGI bleeds 4 or 5 years ago. Pancolonic diverticulosis was seen by Dr Gallardo. He attempted epinephrine and clipping at flexible sigmoidoscopy and this failed and she ended up having a segmental left colectomy by Dr Grady, September 2014. In December 2014, there was an episode of bleeding, clinically mild with colonoscopy showing apparent bleeding from the anastomosis, said "to be of uncertain significance" per Dr. Griffin. She did not require any transfusions during that admission. PAST MEDICAL HISTORY: 1. Coronary disease - stented in the late 1999. 2. Morbid obesity. 3. Status post hysterectomy in 1961 due uterine injury, which she attributes to her last child being large (9 pounds 4 ounces). She does not believe any other organs were removed. 4. Osteopenia - on Prolia infusions every 6 months. She has never had a fracture. 5. Hypertension. 6. Chronic renal insufficiency - followed by Dr. Carpio. 7. Chronic anemia - placed on iron by Dr. Barroso a few years ago, although iron levels twice in 2014 were 161 and 118 and ferritin 28 and 37. Erythropoietin was 12.2. B12 level most recently in April 2016 was 372. At the time of the anemia workup, in 2014, 278. HOME MEDICATIONS: Include omeprazole 20 mg b.i.d.; ferrous sulfate; multivitamin with minerals; cod liver oil; lisinopril 10; simvastatin 20 h.s.; denosumab (Prolia); ibuprofen is listed on her computer sheet but she states she has been off for 2 years. She also takes tramadol and p.r.n. OxyContin. SOCIAL HISTORY: She is with her in a shelter. She has 6 children, identifies her son, Stephen, as a probable proxy. REVIEW OF SYSTEMS: History of recent chest pain. H. pylori was detected at her upper endoscopy in 2013, which was otherwise normal, done as part of the general GI bleeding workup. The visit history shows multiple visits for leg pain, radiculopathy, back pain. She has never been on dialysis (although some procedure notes state that). No history of seizures, CVA, or substance abuse. PHYSICAL EXAM: She is a very substantially overweight older black female in no overt distress. She has no adenopathy. Her lungs are clear. Heart sounds are regular. The abdomen is obese, symmetric, well healed, midline scar. There is no overt hernia. Bowel sounds are normal. There is diffuse deep tenderness. Rectal per ER shows dark stool, heme positive. Extremities: Show no edema. LABORATORY DATA: At 7:45 a.m., hemoglobin 10.2, hematocrit 31, platelets 233. INR is 0.86. BUN 42, creatinine 1.5, potassium 3.9. Albumin 3.6. Total bilirubin 0.40. IMPRESSION: This 81-year-old woman is having a clinically modest painless gastrointestinal bleed most consistent once again with a diverticular source. There has been no change in her BUN and creatinine and she is on active PPI treatment, having had a normal upper endoscopy 3 years ago, apart from Helicobacter pylori. As she has not been on an NSAID, regardless whether the Helicobacter pylori was successfully cleared, the odds are that this is lower gastrointestinal bleed. At the moment, she does not appear to be bleeding fast enough for a bleeding scan to be helpful, though that would be the first study should there be signs of acceleration. She is on a baby aspirin and that should be held at least for a couple of weeks. [id number]/[facility] #: [id number] LESLIE
--- NOTE | 2017-05-19 22:59 | ED ---
Royer Mir Tiffany, scribed for Melissa Yeung MD on 05/19/17 at 0804 . GI/ HPI - HPI Summary HPI Summary: The patient is a 81 year old F presenting to [facility] accompanied by son complains of dark blood rectal bleed since 04:00 today. Symptoms aggravated by nothing. Symptoms alleviated by nothing. Patient reports diarrhea and pain across the bottom of abdomen, mostly on right side. Patient denies chest pain, shortness of breath, and vomiting. Has been passing gas for the past 2-3 weeks. Has history of diverticulitis. Had partial colectomy in 2015 (Dr. Grady). - History of Current Complaint Chief Complaint: EDGIBleed Time Seen by Provider: 05/19/17 07:22 Stated Complaint: BLOODY STOOL Hx Obtained From: Patient Onset/Duration: Started Hours Ago - 04:00 today, Still Present Timing: Constant Location of Pain: Other - across the bottom of abdomen, mostly on right side Associated Signs and Symptoms: Positive: Negative - chest pain, shortness of breath, and vomiting, Other: - pain across the bottom of abdomen, mostly on right side - Additional Pertinent History Primary Care Physician: [id number] - Allergy/Home Medications Allergies/Adverse Reactions: Allergies Allergy/AdvReac Type Severity Reaction Status Date / Time penicillin G Allergy Unknown Verified 05/19/17 08:07 Reaction Details ENVIRONMENTAL Allergy HEADACHES Uncoded 12/22/14 09:18 Home Medications: Home Medications Aspirin EC Low Dose* [Ecotrin EC Low Dose 81 MG*] 81 mg PO DAILY 05/19/17 [ History Confirmed 05/19/17] Calcium Carbonate/Vitamin D3 [Calcium 600-Vit D3 800 Tablet] 1 each PO BID 05/19 [History Confirmed 05/19/17] Cod Liver Oil 1 cap PO DAILY 05/19/17 [History Confirmed 05/19/17] Cranberry 8,400 mg PO DAILY 05/19/17 [History Confirmed 05/19/17] Denosumab(NF) [Prolia(NF)] 60 mg SUBCUT Q6M 05/19/17 [History Confirmed 05/19/17 ] Docusate CAP* [Colace Cap*] 100 mg PO DAILY 05/19/17 [History Confirmed 05/19/17 ] Ferrous Sulfate TAB* 325 mg PO DAILY 05/19/17 [History Confirmed 05/19/17] Ibuprofen TAB* [Motrin TAB* 800 MG] 800 mg PO TID WITH MEALS PRN 05/19/17 [ History Confirmed 05/19/17] Multivitamins/Minerals TAB* [Theragran/minerals TAB*] 1 tab PO DAILY 05/19/17 [ History Confirmed 05/19/17] Nitroglycerin TAB 0.4 MG* 0.4 mg SL Q5M PRN 05/19/17 [History Confirmed 05/19/17 ] Omeprazole CAP* [Prilosec CAP* 20 MG] 20 mg PO BID 05/19/17 [History Confirmed 05/19/17] Potassium Chlor TAB* [Klor Con ER TAB*] 10 meq PO DAILY 05/19/17 [History Confirmed 05/19/17] Triamcinolone 0.025% OINT * 1 applic TOPICAL BID 05/19/17 [History Confirmed ] ValACYclovir (*) [Valtrex 500 mg (*)] 500 mg PO BID 05/19/17 [History Confirmed 05/19/17] Vitamin A Palmitate [Vitamin A] 10,000 unit PO DAILY 05/19/17 [History Confirmed 05/19/17] dilTIAZem HCl [Diltiazem 24Hr ER] 180 mg PO DAILY 05/19/17 [History Confirmed ] PMH/Surg Hx/FS Hx/Imm Hx Previously Healthy: No Endocrine/Hematology History: Reports: Hx Diabetes - DIET CONTROL, Hx Thyroid Disease - hypothyroid Denies: Hx Anticoagulant Therapy, Hx Blood Disorders, Hx Blood Transfusions, Hx Bone Marrow Disease, Hx Systemic Lupus Erythematosus, Hx Sickle Cell Disease , Hx Anemia, Hx Unexplained Bleeding Cardiovascular History: Reports: Hx Angina, Hx Angioplasty, Hx Coronary Artery Disease, Hx Deep Vein Thrombosis, Hx Hypercholesterolemia, Hx Hypertension - controlled with meds, Hx Myocardial Infarction, Hx Peripheral Vascular Disease Denies: Hx Aneurysm, Hx Auto Implanted Cardiovert Defib, Hx Cardiac Arrest, Hx Cardiomegaly, Hx Congenital Heart Disease, Hx Congestive Heart Failure, Hx Hypotension, Hx Pacemaker/ICD, Hx Rheumatic Fever, Hx Syncope, Hx Valvular Heart Disease Respiratory History: Reports: Hx Asthma, Hx Sleep Apnea - states hx of but does not use CPAP at home Denies: Hx Chronic Bronchitis, Hx Chronic Obstructive Pulmonary Disease (COPD ), Hx Cystic Fibrosis, Hx Lung Cancer, Hx Pleural Effusion, Hx Pneumonia, Hx Pulmonary Edema, Hx Pulmonary Embolism, Hx Seasonal Allergies, Other Respiratory Problems/Disorders GI History: Reports: Hx Diverticulosis, Hx Gastroesophageal Reflux Disease Denies: Hx Cirrhosis, Hx Crohn's Disease, Hx Gall Bladder Disease, Hx Gastrointestinal Bleed, Hx Hiatal Hernia, Hx Irritable Bowel, Hx Jaundice, Hx Obstructive Bowel, Hx Ileostomy, Hx Pyloric Stenosis, Hx Ulcer, Other GI Disorders History: Denies: Hx Acute Renal Failure, Hx Benign Prostatic Hyperplasia, Hx Chronic Renal Failure, Hx Dialysis, Hx Kidney Infection, Hx Kidney Stones, Other Problems/Disorders Musculoskeletal History: Reports: Hx Arthritis - generalized, Hx Back Problems, Hx Tendonitis - fingers, 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) Denies: Hx Bursitis, Hx Congenital Bone Abnormalities, Hx Fibromyalgia, Hx Gout, Hx Orthopedic Injury, Hx Osteoporosis, Hx Scoliosis Sensory History: Reports: Hx Cataracts, Hx Contacts or Glasses, Hx Glaucoma, Hx Vision Problem, Hx Hearing Problem Denies: Hx Eye Injury, Hx Eye Prosthesis, Hx Macular Degeneration, Hx Deafness, Hx Hearing Aid, Other Sensory Impairments Opthamlomology History: Reports: Hx Cataracts, Hx Contacts or Glasses, Hx Glaucoma, Hx Vision Problem Denies: Hx Eye Injury, Hx Eye Prosthesis, Hx Macular Degeneration, Other Sensory Impairments Neurological History: Reports: Hx Headaches - once in a while, not chronic Denies: Hx Dementia, Hx Developmental Delay, Hx Migraine, Hx Seizures, Hx Spinal Cord Injury, Hx Transient Ischemic Attacks (TIA) Psychiatric History: Denies: Hx Anxiety, Hx Attention Deficit Hyperactivity Disorder, Hx Eating Disorder, Hx Depression, Hx Panic Disorder, Hx Post Traumatic Stress Disorder, Hx Inpatient Treatment, Hx [facility] Mental Health Tx, Hx Schizophrenia, Hx Bipolar Disorder, Hx Suicide Attempt, Hx Substance Abuse, Other Psychiatric Issues/Disorders - Cancer History Hx Chemotherapy: No Hx Radiation Therapy: No - Surgical History Surgery Procedure, Year, and Place: LEFT KNEE X2.....RIGHT KNEE X1. Hysterectomy Hx Anesthesia Reactions: No - Immunization History Date of Influenza Vaccine: 2016 Infectious Disease History: No Infectious Disease History: Reports: History Other Infectious Disease - herpes Denies: Hx Clostridium Difficile, Hx Hepatitis, Hx Human Immunodeficiency Virus (HIV), Hx of Known/Suspected MRSA, Hx Shingles, Hx Tuberculosis, Hx Known/ Suspected VRE, Hx Known/Suspected VRSA, Traveled Outside the [place] in Last 30 Days - Family History Known Family History: Positive: Hypertension, Diabetes, Other - Diverticulitis, sickle cell, arthritis Family History: Type II - Social History Alcohol Use: None Hx Substance Use: No Substance Use Type: Reports: None Hx Tobacco Use: No Smoking Status (MU): Never Smoked Tobacco Have You Smoked in the Last Year: No Review of Systems Negative: Chest Pain Negative: Shortness Of Breath Positive: Abdominal Pain - across the bottom of abdomen, mostly on right side, Diarrhea, Other - Dark blood rectal bleed. Negative: Vomiting All Other Systems Reviewed And Are Negative: Yes Physical Exam - Summary Physical Exam Summary: Appearance: Ill-appearing, moderate pain distress, Well-nourished, obese, wearing a head-dress Skin: Warm, color reflects adequate perfusion Head: Normal Head/Face inspection Eyes: Conjunctiva clear ENT: Normal inspection Neck: Supple, no nodes, no JVD. Respiratory: Lungs clear, Normal breath sounds, no respiratory distress Cardio: RRR, No murmur, pulses normal, brisk capillary refill Abdomen: soft, tenderness in LLQ, no guarding, no rebound, no masses Bowel sounds: present Rectal exam: no external hemorrhoids, tender exam, melena (selwyn stool), no masses Musculoskeletal: Strength Intact/ ROM intact. No calf tenderness. No edema. Neuro: Alert, muscle tone normal, facial symmetry, speech normal, sensory/motor intact Psychological: Normal Triage Information Reviewed: Yes Vital Signs On Initial Exam: Initial Vitals Temp Pulse Resp BP Pulse Ox 98 F 66 16 138/79 100 05/19/17 07:07 05/19/17 07:07 05/19/17 07:07 05/19/17 07:07 05/19/17 07:07 Vital Signs Reviewed: Yes Diagnostics - Vital Signs Vital Signs Temp Pulse Resp BP Pulse Ox 05/19/17 07:07 98 F 66 16 138/79 100 - Laboratory Lab Results: Lab Results 05/19/17 05/19/17 05/19/17 Range/Units 07:45 07:45 07:45 WBC 7.9 (3.5-10.8) 10^3/ul RBC 3.40 L (4.0-5.4) 10^6/ul Hgb 10.2 L (12.0-16.0) g/dl Hct 31 L (35-47) % MCV 91 (80-97) fL MCH 30 (27-31) pg MCHC 33 (31-36) g/dl RDW 14 (10.5-15) % Plt Count 233 (150-450) 10^3/ul MPV 7 L (7.4-10.4) um3 Neut % (Auto) 73.2 (38-83) % Lymph % (Auto) 17.3 L (25-47) % [place] % (Auto) 6.1 (0-7) % Eos % (Auto) 2.3 (0-6) % Baso % (Auto) 1.1 (0-2) % Absolute Neuts (auto) 5.8 (1.5-7.7) 10^3/ul Absolute Lymphs (auto) 1.4 (1.0-4.8) 10^3/ul Absolute Monos (auto) 0.5 (0-0.8) 10^3/ul Absolute Eos (auto) 0.2 (0-0.6) 10^3/ul Absolute Basos (auto) 0.1 (0-0.2) 10^3/ul Absolute Nucleated RBC 0 10^3/ul Nucleated RBC % 0.1 INR (Anticoag Therapy) 0.86 (0.77-1.02) Sodium 138 (133-145) mmol/L Potassium 3.9 (3.5-5.0) mmol/L Chloride 104 (101-111) mmol/L Carbon Dioxide 27 (22-32) mmol/L Anion Gap 7 (2-11) mmol/L BUN 42 H (6-24) mg/dL Creatinine 1.50 H (0.51-0.95) mg/dL Est GFR ( Amer) 43.1 (>60) Est GFR (Non-Af Amer) 33.5 (>60) BUN/Creatinine Ratio 28.0 H (8-20) Glucose 103 H (70-100) mg/dL Hemoglobin A1c (4.0-5.6) % Lactic Acid (0.5-2.0) mmol/L Calcium 9.2 (8.6-10.3) mg/dL Magnesium 2.1 (1.9-2.7) mg/dL Total Bilirubin 0.40 (0.2-1.0) mg/dL AST 16 (13-39) U/L ALT 10 (7-52) U/L Alkaline Phosphatase 59 (34-104) U/L Troponin I 0.01 (<0.04) ng/mL C-Reactive Protein 2.32 (< 5.00) mg/L Total Protein 6.5 (6.4-8.9) g/dL Albumin 3.6 (3.2-5.2) g/dL Globulin 2.9 (2-4) g/dL Albumin/Globulin Ratio 1.2 (1-3) Amylase 69 (29-103) U/L Lipase 23 (11.0-82.0) U/L Blood Type Antibody Screen 05/19/17 05/19/17 05/19/17 Range/Units 07:45 07:45 07:45 WBC (3.5-10.8) 10^3/ul RBC (4.0-5.4) 10^6/ul Hgb (12.0-16.0) g/dl Hct (35-47) % MCV (80-97) fL MCH (27-31) pg MCHC (31-36) g/dl RDW (10.5-15) % Plt Count (150-450) 10^3/ul MPV (7.4-10.4) um3 Neut % (Auto) (38-83) % Lymph % (Auto) (25-47) % [place] % (Auto) (0-7) % Eos % (Auto) (0-6) % Baso % (Auto) (0-2) % Absolute Neuts (auto) (1.5-7.7) 10^3/ul Absolute Lymphs (auto) (1.0-4.8) 10^3/ul Absolute Monos (auto) (0-0.8) 10^3/ul Absolute Eos (auto) (0-0.6) 10^3/ul Absolute Basos (auto) (0-0.2) 10^3/ul Absolute Nucleated RBC 10^3/ul Nucleated RBC % INR (Anticoag Therapy) (0.77-1.02) Sodium (133-145) mmol/L Potassium (3.5-5.0) mmol/L Chloride (101-111) mmol/L Carbon Dioxide (22-32) mmol/L Anion Gap (2-11) mmol/L BUN (6-24) mg/dL Creatinine (0.51-0.95) mg/dL Est GFR ( Amer) (>60) Est GFR (Non-Af Amer) (>60) BUN/Creatinine Ratio (8-20) Glucose (70-100) mg/dL Hemoglobin A1c 5.2 (4.0-5.6) % Lactic Acid 1.2 (0.5-2.0) mmol/L Calcium (8.6-10.3) mg/dL Magnesium (1.9-2.7) mg/dL Total Bilirubin (0.2-1.0) mg/dL AST (13-39) U/L ALT (7-52) U/L Alkaline Phosphatase (34-104) U/L Troponin I (<0.04) ng/mL C-Reactive Protein (< 5.00) mg/L Total Protein (6.4-8.9) g/dL Albumin (3.2-5.2) g/dL Globulin (2-4) g/dL Albumin/Globulin Ratio (1-3) Amylase (29-103) U/L Lipase (11.0-82.0) U/L Blood Type O Positive Antibody Screen Negative Result Diagrams: 05/19/17 13:05 05/19/17 07:45 Lab Statement: Any lab studies that have been ordered have been reviewed, and results considered in the medical decision making process. - CT Abd/Pel CT Interpretation Completed By: Radiologist - Cortical cysts in the kidneys. No evidence of diverticulitis is noted with contrast in the rectum. No abnormal dilatation of bowel is noted. Patient is status post hysterectomy. Coarse calcification in the left adnexa is unchanged from May 02, 2017. ED physician has reviewed this radiology report. - EKG 07:27 Cardiac Rate: NL - 65 BPM EKG Rhythm: Sinus Rhythm ST Segment: Non-Specific Ectopy: None EKG Interpretation: Nml AV. Prolonged IVCT with RBBB and LAFB. Nml QTc. Lef axis is -101. EKG Comparison: No Significant Change - Compared to 02/13/17 G[facility]U Course/Dx - Course Course Of Treatment: Allergies noted. High blood pressure noted. Medications reviewed this visit. EKG unchanged from Jan 2017.CT Abd/Pel reveals, per radiologist, Cortical cysts in the kidneys. No evidence of diverticulitis is noted with contrast in the rectum. No abnormal dilatation of bowel is noted. Patient is status post hysterectomy. Coarse calcification in the left adnexa is unchanged from May 02, 2017. Patient admitted to Dr. Reyes for further evaluation. The patient is agreeable with this plan. - Physician Notifications Discussed Care Of Patient With: Yvonne Garcia Time Discussed With Above Provider: 08:41 Instructed by Provider To: Other - Dr. Garcia is made aware of patient and awaits full workup. At 08:44, Dr. Reyes (hospitalist) is made aware of patient. Discharge - Discharge Plan The documentation as recorded by the Royer spann Tiffany accurately reflects the service I personally performed and the decisions made by , Melissa Yeung MD.
[2017-05-20] MEDS: Diltiazem TAB* 60 MG PO SCH ×4 (00:27→18:09)
[2017-05-20] MEDS: traMADol TAB* 50 MG PO PRN ×3 (00:27→15:36)
[2017-05-20 05:33] LABS: Hematocrit 28 % (35-47); Hemoglobin 9.4 g/dl (12.0-16.0); Mean Corpuscular HGB Conc 33 g/dl (31-36); Mean Corpuscular Hemoglobin 31 pg (27-31); Mean Corpuscular Volume 92 fL (80-97); Mean Platelet Volume 7 um3 (7.4-10.4); Platelet Count 205 10^3/ul (150-450); Red Blood Count 3.07 10^6/ul (4.0-5.4); Red Cell Distribution Width 14 % (10.5-15); White Blood Count 7.8 10^3/ul (3.5-10.8)
[2017-05-20 05:54] LABS: EGFR Non-African American 56.7 (>60)
[2017-05-20] MEDS: Insulin LISPRO* 1 UNITS UNIT SUBCUT SCH ×4 (07:48→20:29)
[2017-05-20] MEDS: Ferrous Sulfate TAB* 325 MG PO SCH (09:24)
[2017-05-20] MEDS: Omeprazole CAP* 20 MG PO SCH ×2 (09:24→20:58)
[2017-05-20] MEDS: Witch Hazel PAD* JAR TOPICAL SCH (09:35)
--- NOTE | 2017-05-20 12:54 | PN ---
Subjective Date of Service: 05/20/17 Interval History: blood mixed with feces now. last 6 am. 4-5 total since admission , plus 2 at home. hgb to 9.4 from 10.2 had some 5/10 lower abdominal cramping last night but now resolved. afebrile hemodynamically stable. Objective Active Medications: Atorvastatin Calcium (Lipitor*) 10 mg PO BEDTIME [facility] Last Admin: 05/19/17 20:09 Dose: 10 mg Dextrose (D50w Syringe 50 Ml*) 12.5 gm IV PUSH .FOR FS < 60 - SS PRN PRN Reason: FS < 60 Diltiazem HCl (Cardizem Tab*) 60 mg PO Q6HR [facility] Last Admin: 05/20/17 11:39 Dose: 60 mg Ferrous Sulfate (Ferrous Sulfate Tab*) 325 mg PO DAILY [facility] Last Admin: 05/20/17 09:24 Dose: 325 mg Insulin Human Lispro (Humalog*) 0 units SUBCUT ACHS [facility] PRN Reason: Protocol Last Admin: 05/20/17 11:40 Dose: Not Given Omeprazole (Prilosec Cap*) 20 mg PO BID [facility] Last Admin: 05/20/17 09:24 Dose: 20 mg Ondansetron HCl (Zofran Inj*) 4 mg IV Q6H PRN PRN Reason: NAUSEA Oxycodone/Acetaminophen (Percocet 5/325 Tab*) 1 tab PO QPM PRN PRN Reason: PAIN Tramadol HCl (Ultram*) 50 mg PO Q6HR PRN PRN Reason: PAIN Last Admin: 05/20/17 06:33 Dose: 50 mg Witch Susannah (Tucks*) 1 pad TOPICAL DAILY [facility] Last Admin: 05/20/17 09:35 Dose: 1 pad Vital Signs - 8 hr 05/20/17 05/20/17 05/20/17 06:33 07:26 08:00 Temperature 98.9 F Pulse Rate 57 Respiratory 16 16 16 Rate Blood Pressure 141/50 (mmHg) O2 Sat by Pulse 98 Oximetry 05/20/17 05/20/17 09:19 11:12 Temperature 98.1 F Pulse Rate 57 Respiratory 16 16 Rate Blood Pressure 150/64 (mmHg) O2 Sat by Pulse 100 Oximetry Oxygen Devices in Use Now: None Appearance: NAD Eyes: No Scleral Icterus, PERRLA Ears/Nose/Mouth/Throat: NL Teeth, Lips, Gums, Mucous Membranes Moist Neck: NL Appearance and Movements; NL JVP Respiratory: Symmetrical Chest Expansion and Respiratory Effort, Clear to Auscultation Cardiovascular: RRR, - Abdominal: NL Sounds; No Tenderness; No Distention, No Hepatosplenomegaly, - - external hemorrhoids. Extremities: No Edema Skin: No Rash or Ulcers, No Nodules or Sclerosis Neurological: Alert and Oriented x 3, NL Sensation, NL Muscle Strength and Tone Result Diagrams: 05/20/17 05:08 05/20/17 05:08 Additional Lab and Data: Lab Results 05/19/17 05/19/17 05/19/17 Range/Units 07:45 07:45 07:45 WBC 7.9 (3.5-10.8) 10^3/ul RBC 3.40 L (4.0-5.4) 10^6/ul Hgb 10.2 L (12.0-16.0) g/dl Hct 31 L (35-47) % MCV 91 (80-97) fL MCH 30 (27-31) pg MCHC 33 (31-36) g/dl RDW 14 (10.5-15) % Plt Count 233 (150-450) 10^3/ul MPV 7 L (7.4-10.4) um3 Neut % (Auto) 73.2 (38-83) % Lymph % (Auto) 17.3 L (25-47) % [place] % (Auto) 6.1 (0-7) % Eos % (Auto) 2.3 (0-6) % Baso % (Auto) 1.1 (0-2) % Absolute Neuts (auto) 5.8 (1.5-7.7) 10^3/ul Absolute Lymphs (auto) 1.4 (1.0-4.8) 10^3/ul Absolute Monos (auto) 0.5 (0-0.8) 10^3/ul Absolute Eos (auto) 0.2 (0-0.6) 10^3/ul Absolute Basos (auto) 0.1 (0-0.2) 10^3/ul Absolute Nucleated RBC 0 10^3/ul Nucleated RBC % 0.1 INR (Anticoag Therapy) 0.86 (0.77-1.02) Sodium 138 (133-145) mmol/L Potassium 3.9 (3.5-5.0) mmol/L Chloride 104 (101-111) mmol/L Carbon Dioxide 27 (22-32) mmol/L Anion Gap 7 (2-11) mmol/L BUN 42 H (6-24) mg/dL Creatinine 1.50 H (0.51-0.95) mg/dL Est GFR ( Amer) 43.1 (>60) Est GFR (Non-Af Amer) 33.5 (>60) BUN/Creatinine Ratio 28.0 H (8-20) Glucose 103 H (70-100) mg/dL Hemoglobin A1c (4.0-5.6) % Lactic Acid (0.5-2.0) mmol/L Calcium 9.2 (8.6-10.3) mg/dL Magnesium 2.1 (1.9-2.7) mg/dL Total Bilirubin 0.40 (0.2-1.0) mg/dL AST 16 (13-39) U/L ALT 10 (7-52) U/L Alkaline Phosphatase 59 (34-104) U/L Troponin I 0.01 (<0.04) ng/mL C-Reactive Protein 2.32 (< 5.00) mg/L Total Protein 6.5 (6.4-8.9) g/dL Albumin 3.6 (3.2-5.2) g/dL Globulin 2.9 (2-4) g/dL Albumin/Globulin Ratio 1.2 (1-3) Amylase 69 (29-103) U/L Lipase 23 (11.0-82.0) U/L Blood Type Antibody Screen 05/19/17 05/19/17 05/19/17 Range/Units 07:45 07:45 07:45 WBC (3.5-10.8) 10^3/ul RBC (4.0-5.4) 10^6/ul Hgb (12.0-16.0) g/dl Hct (35-47) % MCV (80-97) fL MCH (27-31) pg MCHC (31-36) g/dl RDW (10.5-15) % Plt Count (150-450) 10^3/ul MPV (7.4-10.4) um3 Neut % (Auto) (38-83) % Lymph % (Auto) (25-47) % [place] % (Auto) (0-7) % Eos % (Auto) (0-6) % Baso % (Auto) (0-2) % Absolute Neuts (auto) (1.5-7.7) 10^3/ul Absolute Lymphs (auto) (1.0-4.8) 10^3/ul Absolute Monos (auto) (0-0.8) 10^3/ul Absolute Eos (auto) (0-0.6) 10^3/ul Absolute Basos (auto) (0-0.2) 10^3/ul Absolute Nucleated RBC 10^3/ul Nucleated RBC % INR (Anticoag Therapy) (0.77-1.02) Sodium (133-145) mmol/L Potassium (3.5-5.0) mmol/L Chloride (101-111) mmol/L Carbon Dioxide (22-32) mmol/L Anion Gap (2-11) mmol/L BUN (6-24) mg/dL Creatinine (0.51-0.95) mg/dL Est GFR ( Amer) (>60) Est GFR (Non-Af Amer) (>60) BUN/Creatinine Ratio (8-20) Glucose (70-100) mg/dL Hemoglobin A1c 5.2 (4.0-5.6) % Lactic Acid 1.2 (0.5-2.0) mmol/L Calcium (8.6-10.3) mg/dL Magnesium (1.9-2.7) mg/dL Total Bilirubin (0.2-1.0) mg/dL AST (13-39) U/L ALT (7-52) U/L Alkaline Phosphatase (34-104) U/L Troponin I (<0.04) ng/mL C-Reactive Protein (< 5.00) mg/L Total Protein (6.4-8.9) g/dL Albumin (3.2-5.2) g/dL Globulin (2-4) g/dL Albumin/Globulin Ratio (1-3) Amylase (29-103) U/L Lipase (11.0-82.0) U/L Blood Type O Positive Antibody Screen Negative Microbiology and Other Data: Microbiology 05/19/17 13:21 Urine Culture - Final Urine No Growth (<1,000 CFU/mL) Assess/Plan/Problems-Billing Assessment: 81 yo female PMH CAD s/p 3 stents on aspirin, CKD, NIDDM, JACEY on CPAP, Left DVT ~2010, diverticular bleeding 2014 s/p segmental colectomy p/w hematochezia. Hgb 10.2 -> 9.4. GI on board. - Patient Problems (1) Anemia due to blood loss, acute Current Visit: No Status: Acute Priority: High Onset Date: 06/30/14 Code (s): D62 - ACUTE POSTHEMORRHAGIC ANEMIA SNOMED Code(s): 202975233 Comment: - Hx of diverticuloiss s/p segmental colectomy September 2014 - appreciate GI recs. monitor for need for bleeding scan but no plans for colonoscopy. - hgb 9.4 from 10.2. will check at 1500 - continue iron supplementation - external hemorrhoid noted (2) CAD (coronary artery disease) Current Visit: No Status: Acute Code(s): I25.10 - ATHSCL HEART DISEASE OF [place] CORONARY ARTERY W/O ANG PCTRS SNOMED Code(s): 73578466 Comment: Continue statin. aspirin has been held on admission for hematochezia 3 stents remotely (3) Chronic anemia Current Visit: No Status: Acute Code(s): D64.9 - ANEMIA, UNSPECIFIED SNOMED Code(s): 428152618 Comment: continue iron supplementation. (4) DVT prophylaxis Current Visit: No Status: Acute Priority: High Onset Date: 06/30/14 Code (s): LUU7925 - SNOMED Code(s): 415878479 Comment: - Pharmacological prophylaxis contraindicated due to GI bleed. - SCD. (5) History of gastroesophageal reflux (GERD) Current Visit: No Status: Chronic Priority: Medium Code(s): Z87.19 - PERSONAL HISTORY OF OTHER DISEASES OF THE DIGESTIVE SYSTEM SNOMED Code(s): 15167393512283 Comment: prilosec 20mg BID (6) History of hypertension Current Visit: No Status: Chronic Priority: Medium Code(s): Z86.79 - PERSONAL HISTORY OF OTHER DISEASES OF THE CIRCULATORY SYSTEM SNOMED Code(s): 161615914 Comment: Continue Lisinopril continue diltiazem 60 q6h (7) Hx of coronary artery disease Current Visit: No Status: Chronic Priority: Medium Code(s): Z86.79 - PERSONAL HISTORY OF OTHER DISEASES OF THE CIRCULATORY SYSTEM SNOMED Code(s): 203393458 Comment: - follows with Dr. Hartley - Cath in 2005 showed 30% Mid LAD and 50% mid D1 - mild CAD. - stress test in June 2014 - small, stress-induced inferior wall defect - low risk. - echo in June 2014 - EF 65% with septal hyperthrophy, mild to moderate MR. - Not on beta-mami as outpatient and Aspirin on hold due to GI bleed. (8) Hx of deep venous thrombosis Current Visit: No Status: Chronic Priority: Medium Code(s): Z86.718 - PERSONAL HISTORY OF OTHER VENOUS THROMBOSIS AND EMBOLISM SNOMED Code(s): 947692294 Comment: denies every being on blood thinner, try to clarify hx from past records Status and Disposition: medicine inpatient. continued hematochezia with risk for decompensation.
[2017-05-20 17:56] LABS: ABS Basophils 0.1 10^3/ul (0-0.2); ABS Eosinophils 0.2 10^3/ul (0-0.6); ABS Lymphocytes 1.3 10^3/ul (1.0-4.8); ABS Monocytes 0.6 10^3/ul (0-0.8); ABS Neutrophils 5.1 10^3/ul (1.5-7.7); ABS Nucleated RBC 0 10^3/ul; Eosinophil % 2.8 % (0-6); Hematocrit 28 % (35-47); Hemoglobin 9.2 g/dl (12.0-16.0); Lymphocyte % 17.3 % (25-47); Mean Corpuscular HGB Conc 34 g/dl (31-36); Mean Corpuscular Hemoglobin 31 pg (27-31); Mean Corpuscular Volume 91 fL (80-97); Mean Platelet Volume 7 um3 (7.4-10.4); Nucleated Red Blood Cells % 0; Platelet Count 196 10^3/ul (150-450); Red Blood Count 3.01 10^6/ul (4.0-5.4); Red Cell Distribution Width 14 % (10.5-15); White Blood Count 7.3 10^3/ul (3.5-10.8)
[2017-05-20] MEDS ORDERED: Hemorrhoidal OINT PR PRN (18:13)
[2017-05-20] MEDS: Atorvastatin* 10 MG TAB PO SCH (20:58)
[2017-05-20] MEDS: oxyCODONE/Acetamin 5/325 MG* TAB PO PRN (21:30)
[2017-05-21] MEDS: Diltiazem TAB* 60 MG PO SCH ×5 (00:01→23:52)
[2017-05-21] MEDS: traMADol TAB* 50 MG PO PRN ×4 (02:45→23:51)
[2017-05-21 05:23] LABS: ABS Basophils 0.1 10^3/ul (0-0.2); ABS Eosinophils 0.3 10^3/ul (0-0.6); ABS Lymphocytes 1.6 10^3/ul (1.0-4.8); ABS Monocytes 0.7 10^3/ul (0-0.8); ABS Neutrophils 6.8 10^3/ul (1.5-7.7); ABS Nucleated RBC 0 10^3/ul; Hematocrit 29 % (35-47); Hemoglobin 9.5 g/dl (12.0-16.0); Lymphocyte % 17.4 % (25-47); Mean Corpuscular HGB Conc 33 g/dl (31-36); Mean Corpuscular Hemoglobin 30 pg (27-31); Mean Corpuscular Volume 91 fL (80-97); Mean Platelet Volume 7 um3 (7.4-10.4); Nucleated Red Blood Cells % 0; Platelet Count 200 10^3/ul (150-450); Red Blood Count 3.13 10^6/ul (4.0-5.4); Red Cell Distribution Width 14 % (10.5-15); White Blood Count 9.5 10^3/ul (3.5-10.8)
[2017-05-21] MEDS: Insulin LISPRO* 1 UNITS UNIT SUBCUT SCH ×4 (08:21→21:17)
[2017-05-21] MEDS: Witch Hazel PAD* JAR TOPICAL SCH (09:11)
[2017-05-21] MEDS: Ferrous Sulfate TAB* 325 MG PO SCH (09:11)
[2017-05-21] MEDS: Omeprazole CAP* 20 MG PO SCH ×2 (09:11→21:15)
[2017-05-21] MEDS ORDERED: Polyethylene Glycol 3350* 17 GM PACKET PO PRN (13:53)
[2017-05-21] MEDS: Docusate CAP* 100 MG PO SCH (14:53)
[2017-05-21] MEDS: oxyCODONE/Acetamin 5/325 MG* TAB PO PRN ×2 (14:53→21:20)
[2017-05-21] MEDS ORDERED: Senna TAB PO ONE (17:01)
[2017-05-21] MEDS: Polyethylene Glycol 3350* 17 GM PACKET PO SCH (17:10)
--- NOTE | 2017-05-21 17:15 | PN ---
Subjective Date of Service: 05/21/17 Interval History: no BM since yesterday AM, some return of cramping abdominal pain. Hgb stable. bowel regimen added back. Objective Active Medications: Atorvastatin Calcium (Lipitor*) 10 mg PO BEDTIME [facility] Last Admin: 05/20/17 20:58 Dose: 10 mg Dextrose (D50w Syringe 50 Ml*) 12.5 gm IV PUSH .FOR FS < 60 - SS PRN PRN Reason: FS < 60 Diltiazem HCl (Cardizem Tab*) 60 mg PO Q6HR [facility] Last Admin: 05/21/17 17:10 Dose: 60 mg Docusate Sodium (Colace Cap*) 100 mg PO DAILY [facility] Last Admin: 05/21/17 14:53 Dose: 100 mg Ferrous Sulfate (Ferrous Sulfate Tab*) 325 mg PO DAILY [facility] Last Admin: 05/21/17 09:11 Dose: 325 mg Insulin Human Lispro (Humalog*) 0 units SUBCUT ACHS [facility] PRN Reason: Protocol Last Admin: 05/21/17 16:48 Dose: 2 unit Omeprazole (Prilosec Cap*) 20 mg PO BID [facility] Last Admin: 05/21/17 09:11 Dose: 20 mg Ondansetron HCl (Zofran Inj*) 4 mg IV Q6H PRN PRN Reason: NAUSEA Oxycodone/Acetaminophen (Percocet 5/325 Tab*) 1 tab PO QPM PRN PRN Reason: PAIN Last Admin: 05/21/17 14:53 Dose: 1 tab Phenyleph/Shark Oil/Min Oil/Petrol (Preparation H*) 1 applic HI TID PRN PRN Reason: PAIN Polyethylene Glycol/Electrolytes (Miralax*) 17 gm PO DAILY [facility] Last Admin: 05/21/17 17:10 Dose: 17 gm Senna (Senokot Tab*) 1 tab PO DAILY [facility] Tramadol HCl (Ultram*) 50 mg PO Q6HR PRN PRN Reason: PAIN Last Admin: 05/21/17 17:10 Dose: 50 mg Witch Susannah (Tucks*) 1 pad TOPICAL DAILY [facility] Last Admin: 05/21/17 09:11 Dose: 1 pad Vital Signs - 8 hr 05/21/17 05/21/17 05/21/17 11:24 11:29 14:10 Temperature 98.2 F 98.8 F Pulse Rate 60 65 Respiratory 17 16 16 Rate Blood Pressure 145/45 160/71 (mmHg) O2 Sat by Pulse 100 100 Oximetry 05/21/17 05/21/17 05/21/17 14:53 15:54 16:59 Temperature 97.3 F Pulse Rate 64 Respiratory 16 20 16 Rate Blood Pressure 135/52 (mmHg) O2 Sat by Pulse 100 Oximetry 05/21/17 17:10 Temperature Pulse Rate Respiratory 20 Rate Blood Pressure (mmHg) O2 Sat by Pulse Oximetry Oxygen Devices in Use Now: None Appearance: NAD Ears/Nose/Mouth/Throat: NL Teeth, Lips, Gums, Mucous Membranes Moist Neck: NL Appearance and Movements; NL JVP Respiratory: Symmetrical Chest Expansion and Respiratory Effort, Clear to Auscultation Cardiovascular: RRR, - - RODDY LUSB Abdominal: NL Sounds; No Tenderness; No Distention, No Hepatosplenomegaly Lymphatic: No Auricular Adenopathy Extremities: No Edema Skin: No Rash or Ulcers, No Nodules or Sclerosis Neurological: Alert and Oriented x 3, NL Sensation, NL Muscle Strength and Tone Nutrition: Taking PO's Result Diagrams: 05/21/17 05:07 05/20/17 05:08 Additional Lab and Data: Laboratory Results - last 24 hr 05/20/17 05/20/17 05/21/17 17:48 20:07 05:07 WBC 7.3 9.5 RBC 3.01 L 3.13 L Hgb 9.2 L 9.5 L Hct 28 L 29 L MCV 91 91 MCH 31 30 MCHC 34 33 RDW 14 14 Plt Count 196 200 MPV 7 L 7 L Neut % (Auto) 70.3 71.6 Lymph % (Auto) 17.3 L 17.4 L [place] % (Auto) 8.4 H 7.4 H Eos % (Auto) 2.8 3.0 Baso % (Auto) 1.2 0.6 Absolute Neuts (auto) 5.1 6.8 Absolute Lymphs (auto) 1.3 1.6 Absolute Monos (auto) 0.6 0.7 Absolute Eos (auto) 0.2 0.3 Absolute Basos (auto) 0.1 0.1 Absolute Nucleated RBC 0 0 Nucleated RBC % 0 0 POC Glucose (mg/dL) 104 H 05/21/17 05/21/17 05/21/17 07:23 11:18 16:40 WBC RBC Hgb Hct MCV MCH MCHC RDW Plt Count MPV Neut % (Auto) Lymph % (Auto) [place] % (Auto) Eos % (Auto) Baso % (Auto) Absolute Neuts (auto) Absolute Lymphs (auto) Absolute Monos (auto) Absolute Eos (auto) Absolute Basos (auto) Absolute Nucleated RBC Nucleated RBC % POC Glucose (mg/dL) 105 H 133 H 131 H Microbiology and Other Data: Microbiology 05/19/17 13:21 Urine Urine Culture - Final No Growth (<1,000 CFU/mL) 05/19/17 08:05 Stool Stool Occult Blood (LUIS DANIEL) - Final Assess/Plan/Problems-Billing Assessment: 81 yo female PMH CAD s/p 3 stents on aspirin, CKD, NIDDM, JACEY on CPAP, Left DVT ~2010, diverticular bleeding 2014 s/p segmental colectomy p/w hematochezia. Hgb 9.5 slightly improved. GI on board. - Patient Problems (1) Anemia due to blood loss, acute Current Visit: No Status: Acute Priority: High Onset Date: 06/30/14 Code (s): D62 - ACUTE POSTHEMORRHAGIC ANEMIA SNOMED Code(s): 712244354 Comment: - Hx of diverticuloiss s/p segmental colectomy September 2014 - appreciate GI recs. monitor for need for bleeding scan but no plans for colonoscopy. - hgb 9.5 - continue iron supplementation - external hemorrhoid noted - add back bowel regimen. Pt not comfortable going home until e/o nonbloody BM - per Dr. Schmidt advance diet today. (2) CAD (coronary artery disease) Current Visit: No Status: Acute Code(s): I25.10 - ATHSCL HEART DISEASE OF [place] CORONARY ARTERY W/O ANG PCTRS SNOMED Code(s): 82367351 Comment: Continue statin. aspirin has been held on admission for hematochezia 3 stents remotely (3) Chronic anemia Current Visit: No Status: Acute Code(s): D64.9 - ANEMIA, UNSPECIFIED SNOMED Code(s): 018657369 Comment: continue iron supplementation. (4) DVT prophylaxis Current Visit: No Status: Acute Priority: High Onset Date: 06/30/14 Code (s): NII5621 - SNOMED Code(s): 180578007 Comment: - Pharmacological prophylaxis contraindicated due to GI bleed. - SCD. (5) History of gastroesophageal reflux (GERD) Current Visit: No Status: Chronic Priority: Medium Code(s): Z87.19 - PERSONAL HISTORY OF OTHER DISEASES OF THE DIGESTIVE SYSTEM SNOMED Code(s): 44708033139171 Comment: prilosec 20mg BID (6) History of hypertension Current Visit: No Status: Chronic Priority: Medium Code(s): Z86.79 - PERSONAL HISTORY OF OTHER DISEASES OF THE CIRCULATORY SYSTEM SNOMED Code(s): 091117705 Comment: Continue Lisinopril continue diltiazem 60 q6h (7) Hx of coronary artery disease Current Visit: No Status: Chronic Priority: Medium Code(s): Z86.79 - PERSONAL HISTORY OF OTHER DISEASES OF THE CIRCULATORY SYSTEM SNOMED Code(s): 792271115 Comment: - follows with Dr. Hartley - Cath in 2005 showed 30% Mid LAD and 50% mid D1 - mild CAD. - stress test in June 2014 - small, stress-induced inferior wall defect - low risk. - echo in June 2014 - EF 65% with septal hyperthrophy, mild to moderate MR. - Not on beta-mami as outpatient and Aspirin on hold due to GI bleed. (8) Hx of deep venous thrombosis Current Visit: No Status: Chronic Priority: Medium Code(s): Z86.718 - PERSONAL HISTORY OF OTHER VENOUS THROMBOSIS AND EMBOLISM SNOMED Code(s): 503478671 Comment: denies every being on blood thinner, try to clarify hx from past records Status and Disposition: medicine inpatient. Attending: Herman Burrell
[2017-05-21] MEDS: Atorvastatin* 10 MG TAB PO SCH (21:15)
[2017-05-22 05:12] LABS: ABS Basophils 0.1 10^3/ul (0-0.2); ABS Eosinophils 0.3 10^3/ul (0-0.6); ABS Lymphocytes 1.7 10^3/ul (1.0-4.8); ABS Monocytes 0.6 10^3/ul (0-0.8); ABS Nucleated RBC 0 10^3/ul; Eosinophil % 3.1 % (0-6); Hematocrit 29 % (35-47); Hemoglobin 9.7 g/dl (12.0-16.0); Lymphocyte % 19.5 % (25-47); Mean Corpuscular HGB Conc 33 g/dl (31-36); Mean Corpuscular Hemoglobin 30 pg (27-31); Mean Corpuscular Volume 91 fL (80-97); Mean Platelet Volume 7 um3 (7.4-10.4); Nucleated Red Blood Cells % 0; Platelet Count 215 10^3/ul (150-450); Red Blood Count 3.21 10^6/ul (4.0-5.4); Red Cell Distribution Width 14 % (10.5-15); White Blood Count 8.5 10^3/ul (3.5-10.8)
[2017-05-22] MEDS: oxyCODONE/Acetamin 5/325 MG* TAB PO PRN (05:39)
[2017-05-22] MEDS: Diltiazem TAB* 60 MG PO SCH ×2 (05:40→13:50)
[2017-05-22] MEDS: Insulin LISPRO* 1 UNITS UNIT SUBCUT SCH ×2 (08:10→13:49)
[2017-05-22] MEDS ORDERED: Magnesium Hydroxide LIQ* 30 ML UDC PO PRN ×2 (08:35→12:00)
[2017-05-22] MEDS ORDERED: Magnesium Hydroxide LIQ* 30 ML UDC PO ONE (08:35)
[2017-05-22] MEDS: traMADol TAB* 50 MG PO PRN (08:50)
[2017-05-22] MEDS: Omeprazole CAP* 20 MG PO SCH (08:50)
[2017-05-22] MEDS: Polyethylene Glycol 3350* 17 GM PACKET PO SCH (08:50)
[2017-05-22] MEDS: Docusate CAP* 100 MG PO SCH (08:50)
[2017-05-22] MEDS: Ferrous Sulfate TAB* 325 MG PO SCH (08:50)
[2017-05-22] MEDS ORDERED: Senna TAB PO SCH (09:00)
[2017-05-22 13:39] VITALS: BP 162/82
[2017-05-22] MEDS: Witch Hazel PAD* JAR TOPICAL SCH (13:48)
--- NOTE | 2017-05-23 07:27 | DS ---
DISCHARGE SUMMARY: DATE OF ADMISSION: 05/19/17 DATE OF DISCHARGE: 05/22/17 ADMITTING PROVIDER: Lubna Jessica DO. PRIMARY CARE PHYSICIAN: Chloe Singh NP. ATTENDING PHYSICIAN: Herman Burrell MD. CONSULTING CHECK WEIGHER: Dr. Nadeem Alexander and Dr. Schmidt CHIEF COMPLAINT: Bloody stools. PRINCIPAL DIAGNOSES: Hematochezia in the setting of known diverticulosis and hemorrhoids. HISTORY OF PRESENT ILLNESS AND HOSPITAL COURSE: Neris Perdomo is a 81-year- old female with past medical history of diverticular bleed in 2014, status post partial colectomy and additional anastomotic bleeding in December 2014. She presented with half cup of maroon/burgundy colored stool the morning of admission, that was without abdominal pain. She had a second episode of again approximately half cup and she presented to the emergency room for evaluation. Her initial hemoglobins were 10.2. She was hemodynamically stable without hypertension or tachycardia. Dr. Alexander of Gastroenterology was consulted who recommended close observation with recommendation for nuclear medicine bleeding scan if bleeding exhilarated. She had been put on her home Prilosec 20 mg p.o. b.i.d. Her hemoglobin and hematocrit were trended q.12. Lowest was 9.2 on night of hospital day #2, this has been slowly improving up to 9.7 on morning of discharge. She had some cranberry colored mushy bowel movements the night prior to discharge and morning of, especially when she was given some milk of magnesia, continued to be hemodynamically stable. She has been recommended to follow up with her primary care, FABI Singh as well as Dr. Alexander within 2 weeks. There was no colonoscopy recommended during the admission. DISCHARGE MEDICATIONS: Include: 1. Docusate 100 mg p.o. daily. 2. Ferrous sulfate 325 mg p.o. daily. 3. Omeprazole 20 mg p.o. b.i.d. 4. Percocet 1 tab p.o. q.p.m. p.r.n. 5. Simvastatin 20 mg p.o. bedtime. 6. Tramadol 50 mg p.o. q.6 hours p.r.n. 7. Aspirin 81 mg daily. 8. Calcium carbonate with vitamin D3 p.o. b.i.d. 9. Cod liver oil 1 capsule p.o. daily. 10. Cranberry 8400 mg p.o. daily. 11. Prolia 60 mg subcutaneous every 6 months. 12. Diltiazem 180 mg p.o. daily. 13. Lisinopril 10 mg p.o. daily. 14. Multivitamin 1 tab p.o. daily. 15. Nitroglycerin 0.4 mg sublingual q.5 minutes p.r.n. 16. MiraLAX 17 g p.o. daily (new). 17. Potassium chloride 10 mEq p.o. daily. 18. Senna 1 tab p.o. daily (new). 19. Travoprost 0.004% ophthalmic both eyes q.h.s. 20. Triamcinolone 0.025% ointment topical b.i.d. 21. Valtrex 500 mg p.o. b.i.d. 22. Vitamin A palmitate 10,000 units p.o. daily. DISCHARGE DIET: Hearth healthy. ACTIVITY LEVEL: No restrictions. FOLLOWUP: Please follow up with primary care physician, Chloe Singh, within [address] of [address] Nadeem Alexander within 2 weeks of discharge. TIME SPENT: 35 minutes. [id number]/CPS #: [id number] MTDD
== END 2017-05-22 15:40 | disposition home or self-care (01) | DRG 378 ==
LOC: ED 07:06 → SSU 12:47
PROVIDERS: ADMIT Hospitalist; ATTEND Internal Medicine
DX: K92.1 Melena (principal); D62 Acute posthemorrhagic anemia; D50.0 Iron deficiency anemia secondary to blood loss (chronic); E11.22 Type 2 diabetes mellitus with diabetic chronic kidney disease; I45.2 Bifascicular block; E66.9 Obesity, unspecified; I25.10 Atherosclerotic heart disease of native coronary artery without angina pectoris; G47.33 Obstructive sleep apnea (adult) (pediatric); I13.10 Hypertensive heart and chronic kidney disease without heart failure, with stage 1 through stage 4 chronic kidney disease, or unspecified chronic kidney disease; N18.3 Chronic kidney disease, stage 3 (moderate); K21.9 Gastro-esophageal reflux disease without esophagitis; M81.0 Age-related osteoporosis without current pathological fracture; Z96.653 Presence of artificial knee joint, bilateral; Z95.5 Presence of coronary angioplasty implant and graft; Z68.35 Body mass index [BMI] 35.0-35.9, adult; Z86.718 Personal history of other venous thrombosis and embolism; Z79.82 Long term (current) use of aspirin; Z79.899 Other long term (current) drug therapy; Z88.0 Allergy status to penicillin; Z80.9 Family history of malignant neoplasm, unspecified; Z82.49 Family history of ischemic heart disease and other diseases of the circulatory system; Z84.1 Family history of disorders of kidney and ureter; Z81.8 Family history of other mental and behavioral disorders
CPT/HCPCS: 36415; 74177; 80048; 80053; 81003; 81015; 82150; 82272; 83036; 83605; 83690; 83735; 84484; 85014; 85018; 85025; 85027; 85610; 86140; 86850; 86900; 86901; 87086; 93005; A9270-GY; J2270; J2405; Q9967

== ENCOUNTER 2018-01-19 17:33 | Inpatient (IN) | payer MEDICARE ==
--- OUTSIDE RECORDS SUMMARY | 2018-01-19 18:16 | XMS REPORT ---
:1935 External Reference #:[id number] Author Organization [employer] Address [address] [place] [address] [place] [address] Phone [phone] Care Team Providers Name Role Phone [facility] Primary Care Physician Unavailable Payers Type Date Identification Numbers Payment Provider Subscriber Medicare Primary Effective: Policy Number: Medicare Deion Perdomo 1987 [id number] PayID: [id number] [facility] [address] [place] [address] Commercial Effective: 2017 Policy Number: Sharla Care Deion Perdomo [id number] Expires: 2018 Group Number: 60% [id number] PayID: [id number] [address] Problems Date Description Provider Status Onset: 04/29/2013 [...] apnea syndrome Melony Noriega DNP, RN, Active [employer] Onset: 09/29/2016 Hypersomnia Melony Noriega DNP, RN, Active [employer]- Family History Date Family Member(s) Problem(s) Comments [...] chocolate occasionally Daily Caffeine Consumes on average 2 sodas per day Exercise Type/Frequency Exercises rarely Exercise [...] Strength Qnty SIG Indications Ordering Provider Prolia 10/15/ Active Solution 60mg/ml 60mg 60 mg sc M81.0 Zsofia 2017 q6mon RAY Toro Rollator Walker 06/04/ Active use as Krystle 2018 henrry Crisostomo M.D. Vitamin A 03/30/ Active Capsules [id number] 1 daily Zsofia 2017 RAY oTro Diltiazem HCL 01/17/ Active Caps ER 180mg 90caps 1 po qd Carson Anderson ER 2017 24HR Tyler Hartley Calcium 09/13/ Active Tablets 600-800mg- 60tabs 1 by M81.0 Zsofia 600/Vitamin D3 2017 Unit mouth [place], twice a [employer] day Prolia 09/12/ Active Solution 60mg/ml 60mg 60 mg sc M81.0 Kimberlyofia 2017 q6mon [place], [employer] Ibuprofen 08/16/ Active Tablets 800mg 60tabs 1 tab by M54.32 Zsofia 2017 mouth [place], three [employer] times a day with food as needed Triamcinolone 02/27/ Active Lotion 0.025% 60ml use on R21 Zsofia Acetonide 2016 affected [place], area 2x [employer] daily as needed Nitrostat 12/31/ Active Tablets 0.4mg 25tabs one sl Carson DEladio 2011 Sub q5min up Brand, to 3 M.D. doses prn, if no relief call 911 Simvastatin 12/16/ Active Tablets 20mg 90tabs 1 tablet 250.00 Chio 2008 at bed , Anam time MKindra Baby Aspirin 12/16/ Active Chewtabs 81mg 100uni 1 tablet 250.00 Chio 2008 ts po daily , Tyelr Mendieta Lisinopril / Active Tablets 10mg 90tabs 1 po qd Stevanovic , Tyler Mendieta Cod Liver Oil / Active Capsule 1 [...] Iron / Active Tablets 325(65Fe) 1 by Unknown 0000 mg mouth every day Oxycodone-Aceta / Active Tablets 5-325mg 1 po pm Linda-He minophen 0000 Chloe alan PA Centrum Adults / Active Tablets as Unknown 0000 directed Cranberry / Active 8400mg 1 daily Unknown 0000 Calcium 1000 + 09/12/ Hx Tablets 1000-800mg 90tabs 1 by M81.0 Nadine Seaman 2017 - -Unit mouth [place], 09/21/ every day [employer] 2016 Calcium 600 09/06/ Hx Tablets 600mg 180tab 1 tab by M81.0 Nadine 2015 - s mouth 2x [place], 09/12/ daily [employer] 2017 Percocet 04/19/ Hx Tablets 5-325mg 80tabs 1 by S83.402D Dirk 2015 - mouth Jordy, 09/06/ every 6 M.D. 2016 hours as needed pain Fiber 08/13/ Hx Tablets 625mg 60tabs 5 by Phillip 2014 - mouth Tyler Sheffield daily 2016 Duloxetine HCL 04/16/ Hx Caps DR 20mg 60caps 2 729.1 Phillip 2014 - Part together Tyler Sheffield 05/24/ by mouth 2014 day Prolia 01/14/ Hx Solution 60mg/ml 60mg 60 mg sc M81.0 Norbert 2013 - q6mon Tyler Kidd 2016 M81.0 Caltrate 01/14/2014 Hx Tablets [id number] 60tabs 1 po bid 733.00 Norbert 600+D - Bernabe, 02/11/2015 M.DEladio Cymbalta 01/14/[address] Morris 30mg 30caps 1 by mouth 729.1 Norbert - every day Kidd, 04/16/2014 M.D. Ativan 06/21/2012 Hx Tablets 1mg 2tabs take one Billy - tablet one Ósacr, 05/24/2014 hour prior M.D. to procedure. May take an additional one at the time of the procedure if needed. Oxycodone/Ac 09/20/2011 Hx Tablets 5-325mg 60tabs 1 po q6h Dirk etaminophen - prn pain Jordy, 04/26/2013 M.D. Tramadol HCL 11/14/2010 Hx Tablets 50mg 40tabs 1 po q 4-6 Dirk - hr prn Jordy, 01/12/2018 M.D. Oxycodone/Ac 10/17/2010 Hx Capsules 5-500mg 80caps [...] Dirk - for 3 days Jordy, 04/26/2013 M.D. Percocet 09/12/2010 Hx Tablets 5-325mg 60tabs 1-2 po q4h Dirk - prn pain Jordy, 04/26/2013 M.DEladio Coumadin 09/12/2010 Hx Tablets 2.5mg 50tabs use as Dirk - directed Jordy, 04/26/2013 M.DlEadio Sulfamethoxa 11/01/2009 Hx Tablets 400-80mg Take two Sivanand zole/Trimeth - for first a, oprim 04/26/2013 two days Poopal, then 1/2 MD tab at bedtime. Eq 10/14/[address] 20mg 30tabs 1 qd 530.81 Sivanand Omeprazole - a, 04/26/2013 MD Ebenezer Miconazole 3 07/09/2009 Hx Suppository 200mg 3units 1 112.1 Stevanov - suppositor ic, 08/11/2009 y in Bernabejacqueilne crowley for M.D. days Cipro 05/24/2009 Hx Tablets 250mg 20tabs [...] three days Duloxetine HCL - Hx Caps Part 30mg Cherry, 06/13/2016 RAY Ortiz-BC Sulfamethoxazole/Tri - Hx Tablets 800-160mg 1 by mouth Unknown methoprim DS 02/28/2016 twice a day Metamucil - Hx Unknown 01/12/2017 Vitamin D3 - Hx Capsules 1000Unit 1 daily Unknown 03/30/2017 Medications Administered in Office Medication Date Status Form Strength Qnty SIG Indications Ordering Provider Depomedrol Administered Injection Krystle 40MG Tarcey Crisostomo M.D. Prolia Administered Injection Nurse Visit Injection, 018 RH Denosumab, 1MG [place] Depomedrol Administered Injection Krystle 40MG 018 Tyler Crisostomo Depomedrol Administered Injection Krystle 40MG 018 Tyler Crisostomo Prolia Administered Injection Nurse Visit Injection, 018 RH Denosumab, 1MG Prolia Administered Injection Zsofia Injection, 017 [place], [employer] Denosumab, 1MG Depomedrol Administered Injection Dirk Jordy, 40MG 017 M.D. Depomedrol Administered Injection Dirk Jordy, 40MG 017 M.D. Prolia Administered Injection Nurse Visit Injection, 017 C Denosumab, 1MG Prolia Administered Injection Zsofia Injection, 016 [place], [employer] Denosumab, 1MG Inj, Administered Injection Carson D. Regadenoson, 016 Tyler Hartley 0.1 MG Technetium TC Administered Injection Carson DEladio 99M 016 Tyler Hartley Tetrofosmin, Per Unit Dose Up To 40 Millicuries Prolia Administered Injection Phillip Injection, 015 Endo, M.D. Denosumab, 1MG Prolia Administered Injection Phillip Injection, 015 Endo, M.D. Denosumab, 1MG Depomedrol Administered Injection Dirk Jordy, 20MG 015 M.D. Depomedrol Administered Injection Billy 80MG 015 Tyler Cantrell Prolia Administered Injection Nurse Visit Injection, 014 RH Denosumab, 1MG Depomedrol Administered Injection Krystle 80MG 014 Tyler Crisostomo Depomedrol Administered Injection Billy 80MG 014 Tyler Cantrell Inj, Administered Injection Carson D. Regadenoson, 014 Tyler Hartley 0.1 MG Technetium TC Administered Injection Carson Anderson 99M 014 Tyler Hartley Tetrofosmin, Per Unit Dose Up To 40 Millicuries Depomedrol Administered Injection Lula 80MG 014 Vonda, TAMELA-C Depomedrol Administered Injection Krystle 80MG 013 Tyler Crisostomo Depomedrol Administered Injection Krystle 80MG 013 Tyler Crisostomo Depomedrol Administered Injection Dirk Jordy, 40MG 013 M.D. Depomedrol Administered Injection Dirk Jordy, 80MG 012 M.D. Immunizations CPT Code Status Date Vaccine Lot # [id number] Given 12/23/2008 Zoster (Zostavax) Vital Signs Date Vital Result Comment 01/16/2018 Height 60 inches 5'0" Weight 208.00 lb Heart Rate 72 /min BP Systolic 126 mmHg rue large cuff/sitting BP Diastolic 74 mmHg rue large cuff/sitting BP Systolic Standing 118 mmHg rue large cuff BP Diastolic Standing 74 mmHg rue large cuff BMI (Body Mass Index) 40.6 kg/m2 Ejection Fraction 68% echo. 05/01/2013 12/26/2017 Height 60 inches 5'0" Weight 220.00 lb Heart Rate 74 /min BP Systolic 136 mmHg BP Diastolic 80 mmHg Respiratory Rate 14 /min Pain Level 8 BMI (Body Mass Index) 43.0 kg/m2 10/15/2017 Height 60 inches 5'0" Weight 197.50 lb Heart Rate 62 /min BP Systolic Sitting 130 mmHg BP Diastolic Sitting 78 mmHg Pain Level 4 O2 % BldC Oximetry 98 % BMI (Body Mass Index) 38.6 kg/m2 08/16/2017 Height 60 inches 5'0" Weight 189.00 lb BP Systolic 148 mmHg BP Diastolic 86 mmHg Respiratory Rate 17 /min Body Temperature 96.8 F Pain Level 8 BMI (Body Mass Index) 36.9 kg/m2 07/13/2017 Height 60 inches 5'0" Weight 189.00 lb with shoes Heart Rate 64 /min BP Systolic Sitting 144 mmHg Lue lrg cuff BP Diastolic Sitting 82 mmHg Lue lrg cuff BP Systolic Standing 148 mmHg Lue lrg cuff BP Diastolic Standing 86 mmHg Lue lrg cuff Respiratory Rate 15 /min BMI (Body Mass Index) 36.9 kg/m2 Ejection Fraction 68% 05/01/2013-echo 06/29/2017 Height 60 inches 5'0" Weight 187.38 lb Heart Rate 60 /min BP Systolic Standing 165 mmHg BP Diastolic Standing 89 mmHg Respiratory Rate 18 /min Pain Level 7 BMI (Body Mass Index) 36.6 kg/m2 06/04/2017 Height 60 inches 5'0" Weight 182.00 lb Heart Rate 64 /min Respiratory Rate 16 /min Body Temperature 97.3 F Pain Level 10 BMI (Body Mass Index) 35.5 kg/m2 04/23/2017 Height 60 inches 5'0" Weight 182.00 [...] Result H/L Range Note Laboratory test finding 11/22/2017 Calcium Ionized 5.08 mg/dL 4.65-5.28 Pthi 11/22/2017 Calcium (PTH Intact) 9.8 mg/dL 8.6-10.3 PTH Intact 3.3 pmol/L 1.3-9.3 Laboratory test finding 11/22/2017 Vitamin D Total 25(Oh) 50.8 ng/mL High 20-50 Comp Metabolic Panel 2017 Sodium 135 mmol/L 133-145 Potassium 4.0 mmol/L 3.5-5.0 Chloride 99 mmol/L Low 101-111 Co2 Carbon Dioxide 27 mmol/L 22-32 Anion Gap 9 mmol/L 2-11 Glucose 131 mg/dL High 70-100 Blood Urea Nitrogen 45 mg/dL High 6-24 Creatinine 1.43 mg/dL High 0.51-0.95 One Over Creatinine 0.69 mg/dL 0.51-0.95 BUN/Creatinine Ratio 31.5 High 8-20 Calcium 9.4 mg/dL 8.6-10.3 Total Protein 7.5 g/dL 6.4-8.9 Albumin 4.1 g/dL 3.2-5.2 Globulin 3.4 g/dL 2-4 Albumin/Globulin Ratio 1.2 1-3 Total Bilirubin 0.40 mg/dL 0.2-1.0 Alkaline Phosphatase 55 U/L 34-104 Alt 7 U/L 7-52 Ast 14 U/L 13-39 Egfr Non- 35.3 >60 Egfr 45.4 >60 1 Total Protein 24HR Urine 2017 Urine Collection Time 24 Urine Total Volume 1600 mL Urine Random Total Protein 19 mg/dL Urine Total Protein/24HR 304 mg/24Hr High 0-165 Creatinine Clearance 2017 Creatinine 1.44 mg/dL High 0.51-0.95 Urine Collection Time 24 Urine Total Volume 1600 mL Urine Random Creatinine 70.42 mg/dL Creatinine Clearance 54 mL/min Low 88-128 Laboratory test finding 03/22/2016 Vitamin D Total 25(Oh) 40.0 ng/mL 30- 50 2, 3 Comp Metabolic Panel 03/22/2016 Sodium 137 mmol/L 133-145 2 Potassium 3.8 mmol/L 3.5-5.0 2 Chloride 98 mmol/L Low 101-111 2 Co2 Carbon Dioxide 33 mmol/L High 22-32 2 Anion Gap 6 mmol/L 2-11 2 Glucose 87 mg/dL 70-100 2 Blood Urea Nitrogen 34 mg/dL High 6-24 2 Creatinine 1.60 mg/dL High 0.51-0.95 2 BUN/Creatinine Ratio 21.3 High 8-20 2 Calcium 9.9 mg/dL 8.6-10.3 2 Total Protein 7.3 g/dL 6.4-8.9 2 Albumin 4.0 g/dL 3.2-5.2 2 Globulin 3.3 g/dL 2-4 2 Albumin/Globulin Ratio 1.2 1-3 2 Total Bilirubin 0.70 mg/dL 0.2-1.0 2 Alkaline Phosphatase 65 U/L 34-104 2 Alt 5 U/L Low 7-52 2 Ast 13 U/L 13-39 2 Egfr Non- 31.2 >60 2 Egfr 40.1 >60 2, 4 Pthi 03/22/2016 Calcium (PTH Intact) 9.9 mg/dL 8.6-10.3 2 PTH Intact 4.2 pmol/L 1.3-9.3 2 Laboratory test finding 03/22/2016 Vitamin D, 1,25 43 pg/mL 18-78 2, 5 Dihydroxy Laboratory test finding 12/15/2015 Vitamin D Total 25(Oh) 38.1 ng/mL 30- 50 6 Pthi 12/15/2015 Calcium (PTH Intact) 9.8 mg/dL [...] Egfr Non- 31.4 >60 Egfr 40.4 >60 7 PTH, Intact 09/03/2015 Calcium (PTH Intact) 9.8 mg/dL 8.6-10.3 PTH Intact 8.3 pmol/L 1.3-9.3 Laboratory test finding 09/03/2015 Vitamin D Total 25(Oh) 29.0 ng/mL Low 30-50 Vitamin D, 1,25 Dihydroxy 53 pg/mL 18-78 8 Phosphorus 3.5 mg/dL 2.5-5.0 Calcium Ionized 4.77 mg/dL 4.65-5.28 CMP Panel 09/03/2015 Sodium 136 mmol/L 133-145 [...] Egfr Non- 39.3 >60 Egfr 50.5 >60 9 Hemoglobin/Hematacrit 01/18/2015 Hemoglobin 8.0 g/dL Low 12.0-16.0 [...] Egfr Non- 36.9 >60 Egfr 47.4 >60 10 Laboratory test finding 05/06/2014 C Reactive Protein 4.35 mg/L < 5.00 11 Erythrocyte Sed Rate 45 mm/Hr High 0-40 Urinalysis Profile 03/09/2014 Urine Color Yellow Urine Appearance Cloudy Urine Specific [place] 1.013 1.010-1.030 Urine pH 8.0 5-9 Urine [...] And Sensitivities 03/09/2014 Urine Culture (SEE NOTE) 12 Vitamin D, 25 Hydroxy 12/29/2013 25-Hydroxy Vitamin D2 <4.0 ng/mL 25-Hydroxy Vitamin D3 29 ng/mL 25-Hydroxy Vitamin D Total 29 ng/mL 13 Protein Electrophoresis 12/29/2013 Total Protein(Pep) 7.8 g/dL 6.3 - 7.9 Albumin 3.6 g/dL 3.4-4.7 Alpha-1 Globulin 0.3 g/dL 0.1-0.3 Alpha-2 Globulin 1.1 g/dL 0.6-1.0 Beta Globulin 1.1 g/dL 0.7-1.2 Gamma Globulin 1.8 g/dL 0.6-1.6 Albumin/Globulin Ratio 0.84 Impression See Comment 14 Pthi 12/29/2013 PTH Intact 14.6 pmol/L High 1.3-9.3 Calcium (PTH Intact) 9.2 mg/dL 8.6-10.3 RBC Leukoreduced 09/22/2010 RBC Leukoreduced [id number] <SEE NOTE> 15 Patient Blood Type O POSITIVE Antibody Screen NEGATIVE Laboratory test finding 09/22/2010 Release Date 09/25/10 16 Hemoglobin/Hematacrit 09/21/2010 Hemoglobin 10.0 g/dL Low 12.0-16.0 Hematocrit 30 % Low 35-47 Basic Metabolic Panel 09/21/2010 Sodium 138 mmol/L 135-145 Potassium 3.8 mmol/L 3.5-5.0 Chloride 98 mmol/L Low 101-111 Co2 (Carbon Dioxide) 34.0 mmol/L High 22-32 Anion Gap 6.0 mmol/L 2-11 17 Glucose 107 mg/dL High 70-100 BUN 17 mg/dL 6-24 Creatinine 1.00 mg/dL 0.50-1.40 One Over Creatinine 1.00 BUN/Creatinine Ratio 17.0 8-20 Calcium 8.0 mg/dL Low 8.1-9.9 eGFR Non- 54.3 > 60 eGFR 69.9 > 60 18 Laboratory test finding 09/12/2010 Release Date 09/23/10 19, 20 Sensitivities For Urine Culture 09/12/2010 Ampicillin >=32 19 Amikacin <=2 19 Ciprofloxacin >=4 19 Ceftriaxone <=1 19 Cefazolin <=4 19 Nitrofurantoin <=16 19 Gentamicin <=1 19 Imipenem <=1 19 Levofloxacin 4 19 Trimeth-Sulfa >=320 19 Ceftazidime <=1 19 Tigecycline <=0.5 19 Piperacillin/Tazobactam KB 30 19 Urine Culture & 09/12/2010 Urine Culture ESCHERICHIA COLI 19, 21 Sensitivi Sensitivi Laboratory test 09/12/2010 Erythrocyte Sed Rate 67 MM/HR High 0-40 19 finding Manual Differential 09/12/2010 Polysegmented 76 % 38-83 19 Neutrophil Lymphocyte 20 % Low 25-47 19 Monocyte 3 % 0-13 19 Eosinophil 1 % 0-6 19 Absolute Neutrophil Count 8.2 19 Anisocytosis SLIGHT 19 Stomatocytes 1+ 19 CBC Auto Diff 09/12/2010 White Blood Count 10.8 CUMM 4.8-10.8 19 Red Cell Count 3.92 CUMM Low 4.2-5.4 19 Hemoglobin 11.6 g/dL Low 12.0-16.0 19 Hematocrit 36 % 35-47 19 Mean Corpuscular Volume 91 um3 79-97 19 Mean Corpuscular Hemoglob 29 pg 27-31 19 Mean Corpuscular HGB Cone 32 g/dL 32-36 19 Redcell Distribution WDTH 15 % 10.5-15 19 Platelet Count 294 CUMM 150-450 19 Mean Platelet Volume 7.8 um3 7.4-10.4 19, 22 Laboratory test 09/12/2010 C Reactive Protein 1.7 mg/dL High Less Than 0.5 19 finding Basic Metabolic Panel 09/12/2010 Sodium 138 mmol/L 135-145 19 Potassium 3.6 mmol/L 3.5-5.0 19 Chloride 101 mmol/L 101-111 19 Co2 (Carbon Dioxide) 29.0 mmol/L -32 19 Anion Gap 8.0 mmol/L 2-11 19, 23 Glucose 98 mg/dL 70-100 19 BUN 27 mg/dL High 6-24 19 Creatinine 0.87 mg/dL 0.50-1.40 19 One Over Creatinine 1.10 19 BUN/Creatinine Ratio 31.0 High 8-20 19 Calcium 9.5 mg/dL 8.1-9.9 19 eGFR Non- 63.8 > 60 19 eGFR 82.1 > 60 19, 24 Type And Screen (Pre-Adm) 09/12/2010 Patient Blood Type O POSITIVE 19 Antibody Screen NEGATIVE 19 Specimen Discard Date 09/26/10 19, 25 RBC Leukoreduced [id number] O <SEE NOTE> 19, 26 RBC Leukoreduced [id number] <SEE NOTE> 19, 27 Laboratory test finding 09/12/2010 PTT (Aptt) 29.6 25.15-38.53 19 Protime 09/12/2010 Inr 0.94 0.82-1.17 19, 28 Protime 11.1 SEC 10.2-14.8 19, 29 Urinalysis W/Microscopic 09/12/2010 Ua Color YELLOW Yellow 19 Appearance-Urine CLOUDY Clear 19 Specific [place]-Ur 1.024 1.010-1.030 19 Esterase-Urine 3+ Negative 19 Nitrite NEGATIVE Negative 19 Fqhqttyoubde-Si-WQQ NEGATIVE Negative 19 Protein-Urine 1+ Negative 19 PH-Urine 6.0 5-9 19 Blood-Urine 3+ Negative 19 Ketones-Urine NEGATIVE Negative 19 Bilirubin-Ur NEGATIVE Negative 19 Glucose-Urine NEGATIVE Negative 19 WBC-Urine TNTC 0-5 19 RBC-Urine 2-5 0-2 19 Epith Cells-Ur FEW None 19 Bacteria-Urine 4+ None 19 Lipid Profile (Trig/Chol/HDL) 10/22/2009 Triglyceride 160 mg/dL 40-200 Cholesterol 167 mg/dL Less Than 200 30 High Density Lipoprotein 57 mg/dL 40-60 31 Cholesterol/HDL Ratio 2.93 AVERAGE 1-4.44 Low Density Lipoprotein 78 mg/dL Less Than 100 32 Laboratory test finding 10/22/2009 TSH 2.82 MIU/ML 0.34-5.60 Comp Metabolic Panel 10/22/2009 Sodium 138 mmol/L 135-145 Potassium 4.9 mmol/L 3.5-5.0 Chloride 104 mmol/L 101-111 Co2 (Carbon Dioxide) 27.0 mmol/L 22-32 Anion Gap 7.0 mmol/L 2-11 33 Glucose 84 mg/dL 70-100 34 BUN 38 mg/dL High 6-24 Creatinine 1.40 mg/dL 0.50-1.40 One Over Creatinine 0.70 BUN/Creatinine Ratio 27.1 High 8-20 Calcium 9.5 mg/dL 8.1-9.9 35 Total Protein 8.1 GM/DL 6.2-8.1 Albumin 4.4 GM/DL 3.2-5.2 Globulin 3.7 GM/DL 2-4 Albumin/Globulin Ratio 1.2 1-3 Bilirubin Total 0.7 mg/dL 0.4-1.5 36 Alkaline Phosphatase 93 U/L 30-110 Alt (SGPT) 10 U/L Low 14-54 Ast (Sgot) 15 U/L 12-42 eGFR Non- 39.3 > 60 eGFR 47.5 > 60 37 CBC With Manual Diff 10/22/2009 White Blood [...] Absolute Neutrophil Count 5.1 RBC Morphology NORMAL Urinalysis W/Microscopic 07/09/2009 Ua Color YELLOW Yellow Appearance-Urine CLEAR Clear Specific [place]-Ur 1.017 1.010-1.030 Esterase-Urine 1+ Negative Nitrite NEGATIVE Negative Iufvwaajxxmr-We-BCA NEGATIVE Negative Protein-Urine NEGATIVE Negative PH-Urine 6.0 5-9 Blood-Urine 2+ Negative Ketones-Urine NEGATIVE Negative Bilirubin-Ur NEGATIVE Negative Glucose-Urine NEGATIVE Negative WBC-Urine 0-2 0-5 RBC-Urine 0-2 0-2 Epith Cells-Ur FEW None Ua Comments (SEE NOTE) 38 Urine Culture & Sensitivi 07/09/2009 Urine Culture Sensitivi NG 39 Laboratory test finding 07/09/2009 Hemoglobin A1c 5.8 5-7 Urinalysis W/Microscopic 05/22/2009 Ua Color RED Yellow Appearance-Urine TURBID Clear Specific [place]-Ur 1.007 Low 1.010-1.030 Esterase-Urine 3+ Negative Nitrite POSITIVE Negative Xqjuwgyfnmpa-Nq-WQS NEGATIVE Negative Protein-Urine 3+ Negative PH-Urine 6.0 5-9 Blood-Urine 3+ Negative Ketones-Urine 1+ Negative Bilirubin-Ur SEE ICTOTEST Negative Glucose-Urine NEGATIVE Negative WBC-Urine TNTC 0-5 RBC-Urine 3-5 0-2 Mucus Urine SMALL None Epith Cells-Ur FEW None Bacteria-Urine 3+ None Laboratory test finding 05/22/2009 Ictotest-Urine NEGATIVE 40 Urine Culture & 05/22/2009 Urine Culture Sensitivi SN1 41 Sensitivi MRSA/Vre Screen 05/02/2009 MRSA/Vre Culture NFICU 42 CBC With Manual Diff 05/01/2009 White Blood [...] mmol/L 22-32 Anion Gap 8.0 mmol/L 2-11 43 Glucose 102 mg/dL High 70-100 44 BUN 21 mg/dL 6-24 Creatinine 1.20 mg/dL 0.50-1.40 One Over Creatinine 0.80 BUN/Creatinine Ratio 17.5 8-20 Calcium 9.4 mg/dL 8.1-9.9 45 Total Protein 7.6 GM/DL 6.2-8.1 Albumin 3.8 GM/DL 3.2-5.2 Globulin 3.8 GM/DL 2-4 Albumin/Globulin Ratio 1.0 1-3 Bilirubin Total 0.6 mg/dL 0.4-1.5 46 Alkaline Phosphatase 86 U/L 30-110 Alt (SGPT) 11 U/L Low 14-54 Ast (Sgot) 21 U/L 12-42 eGFR Non- 47.1 > 60 eGFR 57.0 > 60 47 Laboratory test finding 05/01/2009 Troponin-I (TnI) 0.04 NG/ML 48 CBC With Electronic Diff 04/29/2009 White Blood [...] Eosinophils 0.2 0-0.6 Abs Basophils 0 0-0.2 49 Comp Metabolic Panel 04/29/2009 Sodium 137 mmol/L 135-145 Potassium 3.2 mmol/L Low 3.5-5.0 Chloride 98 mmol/L Low 101-111 Co2 (Carbon Dioxide) 31.0 mmol/L 22-32 Anion Gap 8.0 mmol/L 2-11 50 Glucose 91 mg/dL 70-100 51 BUN 20 mg/dL 6-24 Creatinine 1.13 mg/dL 0.50-1.40 One Over Creatinine 0.80 BUN/Creatinine Ratio 17.7 8-20 Calcium 9.5 mg/dL 8.1-9.9 52 Total Protein 6.1 GM/DL Low 6.2-8.1 Albumin 4.1 GM/DL 3.2-5.2 Globulin 2.0 GM/DL 2-4 Albumin/Globulin Ratio 2.1 1-3 Bilirubin Total 0.9 mg/dL 0.4-1.5 53 Alkaline Phosphatase 82 U/L 30-110 Alt (SGPT) 13 U/L Low 14-54 Ast (Sgot) 22 U/L 12-42 eGFR Non- 50.4 > 60 eGFR 61.0 > 60 54 Laboratory test finding 04/29/2009 Troponin-I (TnI) 0.02 NG/ML 55 Magnesium Stat 04/29/2009 Magnesium 2.1 mg/dL 1.7-2.6 Amylase Stat 04/29/2009 Amylase 52 U/L 30-125 Laboratory test finding 04/29/2009 Lipase 25 U/L 22-51 Protime Stat 04/29/2009 Inr 0.97 0.97-1.03 56 Protime 11.4 SEC Low 11.5-12.2 57 PTT (Aptt) Stat 04/29/2009 PTT (Aptt) 32.5 25.15-38.53 58 Laboratory test finding 04/29/2009 D Dimer Quantitative < 200 Less Than 230 BNP Evaluatr 37.0 pg/mL 0-100 Surgical Pathology 01/22/2009 Surgical Pathology <SEE 59 NOTE> PTT (Aptt) Stat 01/04/2009 PTT (Aptt) 28.2 25.15-38 60 .53 Protime Stat 01/04/2009 Inr 0.99 0.86-1.1 61 3 Protime 12.1 SEC 10.7-13.6 62 Laboratory test finding 01/04/2009 Troponin-I (TnI) 0.02 NG/ML 63 Magnesium Stat 01/04/2009 Magnesium 2.3 mg/dL 1.7-2.6 CMP Panel Stat 01/04/2009 Sodium 136 mmol/L 135-145 Potassium 3.7 mmol/L 3.5-5.0 Chloride 97 mmol/L Low 101-111 Co2 (Carbon Dioxide) 29.0 mmol/L 22-32 Anion Gap 10.0 mmol/L 2-11 64 Glucose 96 mg/dL 70-100 65 BUN 30 mg/dL High 6-24 Creatinine 1.40 mg/dL 0.50-1.40 One Over Creatinine 0.70 BUN/Creatinine Ratio 21.4 High 8-20 Calcium 8.9 mg/dL 8.1-9.9 66 Total Protein 7.4 GM/DL 6.2-8.1 Albumin 3.7 GM/DL 3.2-5.2 Globulin 3.7 GM/DL 2-4 Albumin/Globulin Ratio 1.0 1-3 Bilirubin Total 0.5 mg/dL 0.4-1.5 67 Alkaline Phosphatase 87 U/L 30-110 Alt (SGPT) 12 U/L Low 14-54 Ast (Sgot) 18 U/L 12-42 eGFR Non- 39.4 > 60 eGFR 47.7 > 60 68 CBC With Electronic Diff Stat 01/04/2009 White Blood Count 9.2 CUMM 4.8- 10.8 Red Cell Count 4.44 CUMM 4.2-5.4 Hemoglobin [...] Eosinophils 0.4 0-0.6 Abs Basophils 0 0-0.2 Laboratory test 01/01/2009 Hemoglobin A1c 6.4 % High Less Than 6.0 69 finding Urine Microalbumin 01/01/2009 Microalbumin (MG/L) 40.0 mg/L Random Urine Creatinine 138.18 mg/dL [place] Alb/Creatinine Ratio 28.9 UG/MG Less Than 30 70 Lipid Profile (Trig/Chol/HDL) 01/01/2009 Triglyceride 64 mg/dL 40-200 Cholesterol 174 mg/dL Less Than 200 71 High Density Lipoprotein 70 mg/dL High 40-60 72 Cholesterol/HDL Ratio 2.49 AVERAGE 1-4.44 Low Density Lipoprotein 91 mg/dL Less Than 100 73 Comp Metabolic Panel 01/01/2009 Sodium 139 mmol/L 135-145 Potassium 4.0 mmol/L 3.5-5.0 Chloride 102 mmol/L 101-111 Co2 (Carbon Dioxide) 28.0 mmol/L 22-32 Anion Gap 9.0 mmol/L 2-11 74 Glucose 79 mg/dL 70-100 75 BUN 21 mg/dL 6-24 Creatinine 1.20 mg/dL 0.50-1.40 One Over Creatinine 0.80 BUN/Creatinine Ratio 17.5 8-20 Calcium 9.5 mg/dL 8.1-9.9 76 Total Protein 7.6 GM/DL 6.2-8.1 Albumin 3.8 GM/DL 3.2-5.2 Globulin 3.8 GM/DL 2-4 Albumin/Globulin Ratio 1.0 1-3 Bilirubin Total 0.6 mg/dL 0.4-1.5 77 Alkaline Phosphatase 96 U/L 30-110 Alt (SGPT) 14 U/L 14-54 Ast (Sgot) 18 U/L 12-42 eGFR Non- 47.1 > 60 eGFR 57.0 > 60 78 CBC With Manual Diff 01/01/2009 White Blood [...] Absolute Neutrophil Count 12.6 RBC Morphology NORMAL 1 Because ethnic data is not always readily [...] 15-29 5 Kidney failure <15 (or dialysis) 2 normal vit D level. May have Prolia injection. 3 PRN VALID 12/08/15-06/06/16 CC: DR. PALAFOX, DR. HARTLEY, DR. SILVA 4 Because ethnic data is not always readily [...] 15-29 5 Kidney failure <15 (or dialysis) 5 ADDITIONAL INFORMATION This test was developed and its performance characteristics determined by [facility] in a manner consistent with CLIA requirements. This test has not been cleared or approved by the [place]. Food and Drug Administration. Test Performed by: [place] [address] [employer] Operator: Yayo Hrading II, M.D., Ph.D. 6 standing order 7 Because ethnic data is not always [...] <15 (or dialysis) 8 Test Performed by: [place] [address] [employer] Operator: Yayo Harding II, M.D., Ph.D. 9 Because [...] 5 Kidney failure <15 (or dialysis) 10 Because ethnic data is not always readily [...] 15-29 5 Kidney failure <15 (or dialysis) 11 Acute inflammation: >10.00 12 RUN DATE: 03/11/14 [facility] LIVE PAGE 1 RUN TIME: [address] [place], [place] [address] Specimen Inquiry Name: DEION PERDOMO : [address]: Anam Barroso MD Acct: [id number] Unit: [id number] AGE: 78 Location: LAB Re03/09/14 SEX: F Status: REG REF SPEC: [id number] [place]LLEN: 03/09/14-1044 [facility] DR: Anam Barroso MD REQ: [id number] RECD: 03/09/14 STATUS: COMP PRINCEHR DR: Norbert Kidd MD _ SOURCE: URINE SPDESC: ORDERED: Urine Culture QUERIES: Medent Number [id number] Procedure Result Verified Site Urine Culture Final 03/11/14- 1108 ML Organism 1 NORMAL RONAL [place] Count >100,000 (Many) CFU/ML END OF REPORT * ML=Testing performed at Main Lab DEPARTMENT OF PATHOLOGY, [address] [place] [address] Chase Moore M.D. Director [facility] # [id number] 13 REFERENCE VALUE 25-HYDROXY D TOTAL (D2+D3) Optimum levels in the healthy population are 20-50, patients with bone disease may benefit from higher levels within this range. Test Performed by: [address] [address] Rocket Assembly Operator: Saran Lomax M.D. 14 RESULT: Polyclonal hypergammaglobulinemia Test Performed by: [place] [address] Rocket Assembly Operator: Saran Lomax M.D. 15 [id number] OP PC TRANSFUSED 09/22/10 1356 16 ANY BLOOD NOT GIVEN WILL BE RELEASED AT 0700 ON THE ABOVE DATE UNLESS DOCTOR NOTIFIES LAB OTHERWISE. 17 Anion gap measurement may be of limited value in the presence of any alkalosis, especially in a combined acid base disorder. . 18 Because ethnic data is not always readily [...] 15-29 5 Kidney failure <15 (or dialysis) 19 AA 09/20/10 20 ANY BLOOD NOT GIVEN WILL BE RELEASED AT 0700 ON THE ABOVE DATE UNLESS DOCTOR NOTIFIES LAB OTHERWISE. 21 >100^>100,000 ORGANISMS/ML (MANY)^CCU 22 Lymphopenia % 23 Anion gap measurement may be of limited value in the presence of any alkalosis, especially in a combined acid base disorder. . 24 Because ethnic data is not always readily [...] 15-29 5 Kidney failure <15 (or dialysis) 25 PREADMISSION TESTING SAMPLES FOR BLOOD BANK WILL [...] WITHIN 3 DAYS OF THE SURGERY DATE. 26 [id number] OP PC TRANSFUSED 09/20/10 1136 27 [id number] OP PC TRANSFUSED 09/20/10 1136 28 Recommended INR for Patients on Oral Anticoagulants Prophylaxis 2.0 - 3.0 Treatment of thrombosis 2.0 - 3.0 Prevention of embolism 2.0 - 3.0 Prevention of embolism from prosthetic heart valves 2.5 - 3.5 29 DIAGNOSIS,TREATMENT,AND THERAPY MUST BE BASED ON THE INR VALUE ALONE. 30 CHOLESTEROL INTERPRETATION: Desirable: Less than 200 MG/DL Borderline-High Risk: 200-239 MG/DL High-Risk: 240 MG/DL and over 31 HDL INTERPRETATION: Undesirable: High Risk: Less than 40 MG/DL Desirable: Low Risk: Greater than 60 MG/DL 32 LDL INTERPRETATION: Low Risk Optimal Level: LDL Less than 100 MG/DL Near or Above Optimal: LDL 100-129 MG/DL Borderline High Risk: LDL 130-159 MG/DL High Risk: LDL 160-189 MG/DL Very High Risk: LDL Greater than 189 MG/DL 33 Anion gap measurement may be of limited value in the presence of any alkalosis, especially in a combined acid base disorder. . 34 Note change in reference range as of 11/14/07. The change was based on recommendations from the [place] [employer]. 35 Please note change in reference range effective 07 . 36 A metabolite of Naproxen, O-desmethylnaproxen, has been shown to interfere with the Jendrassik-Calio method for measuring total bilirubin. Samples from patients who have taken Naproxen have shown spurious elevation in total bilirubin levels. 37 Because ethnic data is not always readily [...] 15-29 5 Kidney failure <15 (or dialysis) 38 BUDDING YEAST PRESENT 39 FINAL: NO GROWTH DAY 2 (<1,000 CFU/mL) 40 ICTOTEST IS A QUALITATIVE CONFIRMATORY TEST FOR BILIRUBIN. 41 SCANT NORMAL URETHRAL OR PERINEAL RONAL 42 NO MRSA ISOLATED 43 Anion gap measurement may be of limited value in the presence of any alkalosis, especially in a combined acid base disorder. . 44 Note change in reference range as of 11/14/07. The change was based on recommendations from the [place] [employer]. 45 Please note change in reference range effective 07 . 46 A metabolite of Naproxen, O-desmethylnaproxen, has been shown to interfere with the Jendrassik-Calio method for measuring total bilirubin. Samples from patients who have taken Naproxen have shown spurious elevation in total bilirubin levels. 47 Because ethnic data is not always readily [...] 15-29 5 Kidney failure <15 (or dialysis) 48 New Reference Range and Interpretation effective 12/27/2001 TnI (ng/ml) INTERPRETATION Less Than 0.06 ng/mL NOT SUPPORTIVE OF DIAGNOSIS OF [place] 0.06 - 0.50 ng/ml INDETERMINATE: SUGGEST SERIAL STUDIES IF CLINICALLY INDICATED. Greater than 0.5 ng/mL CONSISTENT WITH DIAGNOSIS OF [place] . 49 NRBC 50 Anion gap measurement may be of limited value in the presence of any alkalosis, especially in a combined acid base disorder. . 51 Note change in reference range as of 11/14/07. The change was based on recommendations from the [place] [employer]. 52 Please note change in reference range effective 07 . 53 A metabolite of Naproxen, O-desmethylnaproxen, has been shown to interfere with the Jendrassik-Calio method for measuring total bilirubin. Samples from patients who have taken Naproxen have shown spurious elevation in total bilirubin levels. 54 Because ethnic data is not always readily [...] 15-29 5 Kidney failure <15 (or dialysis) 55 New Reference Range and Interpretation effective 12/27/2001 TnI (ng/ml) INTERPRETATION Less Than 0.06 ng/mL NOT SUPPORTIVE OF DIAGNOSIS OF [place] 0.06 - 0.50 ng/ml INDETERMINATE: SUGGEST SERIAL STUDIES IF CLINICALLY INDICATED. Greater than 0.5 ng/mL CONSISTENT WITH DIAGNOSIS OF [place] . 56 Recommended INR for Patients on Oral Anticoagulants Prophylaxis 2.0 - 3.0 Treatment of thrombosis 2.0 - 3.0 Prevention of embolism 2.0 - 3.0 Prevention of embolism from prosthetic heart valves 2.5 - 3.5 57 DIAGNOSIS,TREATMENT,AND THERAPY MUST BE BASED ON THE INR VALUE ALONE. 58 PLEASE NOTE NEW REFERENCE RANGE EFFECTIVE 08. 59 ---- RUN DATE: 01/25/09 [facility] NMI LIVE PAGE 1 RUN TIME: 1346 Specimen Inquiry RUN USER: INTERFACE -- Name: DEION GONZALEZ Status: REG REF Re01/22/09 Age/Sex: 73/F Unit#: [id number] Location: [facility] : 37 -- Specimen: [id number] SOUT Spec Date: 01/22/09 [facility] Dr: Pilo ferreira MD Spec Type: SURGICAL P Received: 01/22/09-5795 Copies to: Anam garcia MD SPECIMEN BIOPSY RIGHT COLON POLYP HISTORY POST-OP DIAGNOSIS: Small polyp removed CLINICAL INFORMATION: Rectal bleeding, history of polyp, removed 2006 GROSS DESCRIPTION Specimen received in formalin labelled Deion Perdomo Page, Right Colon Polyp and consists of several fragments of thomson-brown tissue measuring in aggregate 1.0 x 1.0 x 0.4 cm. Submitted entirely, one cassette. DIAGNOSIS Colon, right, biopsy: A. Tubular adenoma. B. No high grade dysplasia or malignancy. Signed Electronically by: CHASE MOORE MD 01/25/09 1344 -- -- DEPARTMENT OF PATHOLOGY, [address] [place] [address] [facility] Permit #[id number] Chase Moore M.D. Director Raj Acevedo M.D. Carroting Machine Operator Dir sara -- 60 PLEASE NOTE NEW REFERENCE RANGE EFFECTIVE 08. 61 Recommended INR for Patients on Oral Anticoagulants Prophylaxis 2.0 - 3.0 Treatment of thrombosis 2.0 - 3.0 Prevention of embolism 2.0 - 3.0 Prevention of embolism from prosthetic heart valves 2.5 - 3.5 62 ATTENTION EFFECTIVE 08/05/08, THE IMPLEMENTATION OF NEW COAGULATION ANLAYZERS HAS CAUSED A SIGNIFICANT DIFFERENCE FOR PROTIME RESULTS IN SECONDS. THEREFORE, DIAGNOSIS,TREATMENT,AND THERAPY MUST BE BASED ON THE INR VALUE ONLY. 63 New Reference Range and Interpretation effective 12/27/2001 TnI (ng/ml) INTERPRETATION Less Than 0.06 ng/mL NOT SUPPORTIVE OF DIAGNOSIS OF [place] 0.06 - 0.50 ng/ml INDETERMINATE: SUGGEST SERIAL STUDIES IF CLINICALLY INDICATED. Greater than 0.5 ng/mL CONSISTENT WITH DIAGNOSIS OF [place] . 64 Anion gap measurement may be of limited value in the presence of any alkalosis, especially in a combined acid base disorder. . 65 Note change in reference range as of 11/14/07. The change was based on recommendations from the [place] [employer]. 66 Please note change in reference range effective 07 . 67 A metabolite of Naproxen, O-desmethylnaproxen, has been shown to interfere with the Jendrassik-Calio method for measuring total bilirubin. Samples from patients who have taken Naproxen have shown spurious elevation in total bilirubin levels. 68 Because ethnic data is not always readily [...] 15-29 5 Kidney failure <15 (or dialysis) 69 THERAPEUTIC TARGET FOR THE TREATMENT OF DIABETES MELLITUS PATIENTS IS <7% HBA1C, AND IN SELECTIVE PATIENTS <6.0%. PLEASE REFER TO [place] [employer] DIABETIC CARE GUIDELINES FOR FURTHER INFORMATION. 70 MICROALBUMINURIA IN A RANDOM SAMPLE IS DEFINED : MICROALBUMIN/CREATININE RATIO OF 30-299 ug/mg. . 71 CHOLESTEROL INTERPRETATION: Desirable: Less than 200 MG/DL Borderline-High Risk: 200-239 MG/DL High-Risk: 240 MG/DL and over 72 HDL INTERPRETATION: Undesirable: High Risk: Less than 40 MG/DL Desirable: Low Risk: Greater than 60 MG/DL 73 LDL INTERPRETATION: Low Risk Optimal Level: LDL Less than 100 MG/DL Near or Above Optimal: LDL 100-129 MG/DL Borderline High Risk: LDL 130-159 MG/DL High Risk: LDL 160-189 MG/DL Very High Risk: LDL Greater than 189 MG/DL 74 Anion gap measurement may be of limited value in the presence of any alkalosis, especially in a combined acid base disorder. . 75 Note change in reference range as of 11/14/07. The change was based on recommendations from the [place] [employer]. 76 Please note change in reference range effective 07 . 77 A metabolite of Naproxen, O-desmethylnaproxen, has been shown to interfere with the Jendrassik-Prema method for measuring total bilirubin. Samples from patients who have taken Naproxen have shown spurious elevation in total bilirubin levels. 78 Because ethnic data is not always readily [...] dialysis) Procedures Date CPT Code Description Status 01/16/2018 89414 EKG Tracing & Interpretation Completed 12/26/2017 08422 Inject/Drain Joint/Bursa Major W/O US Completed 12/10/2017 76504 Admin Of Inj Completed 10/22/2017 Bone Mineral Density Test Completed 08/16/2017 43246 Inject/Drain Joint/Bursa Major W/O US Completed 06/04/201713117 Injection Single Tendon Origin/Insertion Completed 06/04/201767224 Inject/Drain Joint/Bursa Major W/O US Completed 04/13/2017 67996 Admin Of Inj Completed 01/17/2017 87665 EKG Tracing & Interpretation Completed 10/25/2016 65481 Polysomnography Sleep Staging 4+ Parameters W/Cpap Completed 09/12/2016 22151 Admin Of Inj Completed 09/06/2016 52677 Polysomnography Sleep Staging 4+ Parameters Completed 06/14/2016 42840 EKG Tracing & Interpretation Completed 05/03/2016 43844 Inject/Drain Joint/Bursa Major W/O US Completed 05/03/201640591 Inject/Drain Joint/Bursa Intermediate W/O US Completed 04/10/2016 58974 Chemotherpy Admin Subcutaneous/Im Non-Hormonal Completed Anti-Neoplastic 04/10/2016 10193 Admin Of Inj Completed 09/10/2015 Bone Mineral Density Test Completed 09/07/2015 43042 Chemotherpy Admin Subcutaneous/Im Non-Hormonal Completed Anti-Neoplastic 07/29/2015 35628 Stress Test Completed 07/29/2015 51462 Myocardial Perfusion Imaging Tomographic (Spect) Completed Multiple Studies 07/16/2015 12718 EKG Tracing & Interpretation Completed 02/15/2015 41493 Chemotherpy Admin Subcutaneous/Im Non-Hormonal Completed Anti-Neoplastic 12/22/2014 26010 Trigger Finger Release Incision / Tendon Sheath Completed Incision 12/22/2014 55935 Trigger Finger Release Incision / Tendon Sheath Completed Incision 12/11/2014 89093 EKG Tracing & Interpretation Completed 08/13/2014 98997 Admin Of Inj Completed 07/06/2014 13041 Treadmill Interp/Report Only Completed 07/06/2014 49076 Stress Test Supervsn W/Out I/R Completed 07/02/2014 73132 ECHO Transthorasic Realtime 2D W Doppler & Color Flow Completed Hosp 07/02/2014 24265 EKG, Interpretation Only Completed 07/01/2014 72351 EKG, Interpretation Only Completed 07/01/2014 95394 EKG, Interpretation Only Completed 06/15/2014 29692 Inject Tendon Sheath Or Ligament Aponeurosis Eg Plantar Completed Fascia 04/09/2014 18453 Inject/Drain Joint/Bursa Major W/O US Completed 01/28/2014 44363 Admin Of Inj Completed 12/29/2013 Mammogram Completed 12/29/2013 Bone Mineral Density Test Completed 12/04/2013 52173 Inject Tendon Sheath Or Ligament Aponeurosis Eg Plantar Completed Fascia 11/13/2013 90975 Inject/Drain Joint/Bursa Major W/O US Completed 05/27/2013 50198 EKG Tracing & Interpretation Completed 05/08/2013 19886 Myocardial Perfusion Imaging Tomographic (Spect) Completed Multiple Studies 05/08/2013 43148 Stress Test Completed 05/06/2013 45811 Inject/Drain Joint/Bursa Major W/O US Completed 05/01/2013 38127 ECHO Transthoracic, Real-Time 2D With Doppler And Color Completed Flow 04/29/2013 65386 EKG Tracing & Interpretation Completed 11/28/2012 90841 Inject Tendon Sheath Or Ligament Aponeurosis Eg Plantar Completed Fascia 11/28/2012 59271 Inject/Drain Joint/Bursa Major W/O US Completed 11/15/2012 42523 EKG Tracing & Interpretation Completed 06/21/2012 92214 Rad Exam; Hip Unilat Completed 06/21/2012 32297 Rad Exam; Hip Unilat Completed 06/21/2012 60934 Rad Exam; Pelvis Completed 06/21/2012 07342 Rad Exam; Pelvis Completed 04/01/2012 96949 Inject/Drain Joint/Bursa Intermediate W/O US Completed 09/20/2011 93469 Rad Shoulder Comp, Min. 2 Views Completed 09/20/201133692 Inject/Drain Joint/Bursa Major W/O US Completed 06/02/2011 87943 Xray Knee 3 Views Completed 06/02/2011 20870 Rad Exam; Knee, Ap&L Completed 11/14/2010 48999 Rad Exam; Knee, Ap&L Completed 11/14/2010 03348 Rad Exam; Both Knees, Standing Ap Completed 10/03/2010 60514 Rad Exam; Knee, Ap&L Completed 10/03/2010 33734 Rad Exam; Both Knees, Standing Ap Completed 10/03/2010 71633 Rad Exam; Toes Completed 09/20/2010 88640 Revision TKA W Or W/O Allograft;Femoral & Entire Tibial Completed Component 09/20/2010 03112 Revision TKA W Or W/O Allograft;Femoral & Entire Tibial Completed Component 09/07/2010 02374 Xray Knee 3 Views Completed 09/07/201007266 Inject/Drain Joint/Bursa Major W/O US Completed 02/23/2010 Inject/Drain Joint/Bursa Major W/O US Completed 02/16/2010 77484 Xray Knee 3 Views Completed 02/16/2010 11893 Rad Exam; Knee, Ap&L Completed 01/22/2009 Colonoscopy Completed Encounters Type Date Location Provider CPT E/M Dx Office Visit 10/15/2017 [facility] [place] Pak 36426 M81.0 1:30p Of Naren Office Visit 07/13/2017 [facility] [place], 94423 I25.10 10:30a Flash Scott I10 Office Visit 06/29/2017 10:30a [facility] Services Of [place] 26691 M81.0 [facility] M77.01 M19.021 M19.012 Office Visit 05/22/2017 11:40a [facility],[place] [address] K92.1 Hospitalists E11.59 K57.31 I25.10 Office Visit 05/21/2017 11:39a [facility],[place] [address] K92.1 Hospitalists E11.59 K57.31 I25.10 Office Visit 05/20/2017 11:38a [facility],[place] [address] K92.1 Hospitalists E11.59 K57.31 I25.10 Office Visit 05/19/2017 11:37a [facility],pc Lubna Jessica, 20948 K92.1 Hospitalists D.O. E11.59 K57.31 I25.10 Office Visit 04/23/2017 10:00a [facility] Of Debra Brown, 02867 M77.01 Tyrone RAPP-Mary Kay M19.021 Office Visit 03/30/2017 11:00a [facility] Of [place] Pak 28559 M81.0 [facility] N18.9 M77.01 Office Visit 01/17/2017 11:45a [facility] [place]ley, 08619 I25.10 Flash Scott N18.9 I12.9 Office Visit 11/21/2016 10:45a [facility] Melony Noriega, 89103 G47.33 Services Of [facility] MAIRA MACIAS, [facility]- G47.14 Office Visit 09/29/2016 10:00a [facility] Melony Noriega 09026 G47.33 Services Of [facility] MAIRA MACIAS, [facility]-BC G89.29 G47.14 F40.240 E66.09 Z68.36 Office Visit 09/12/2016 10:00a [facility] Of RAY Pak 02521 M81.0 [facility] Z92.29 M54.5 Office Visit 08/16/2016 2:40p [facility] Nadine Toro 99515 M79.604 Of [facility] 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 92398 S86.111A C.M.A. Office Visit 05/03/2016 1:30p [facility] Virgil Spence M.D. 55146 M71.21 C.M.A. M19.121 S46.011A Office Visit 02/28/2016 10:00a [facility]ology Services Of Nadine Toro, [facility] 59091 R21 [facility] M81.0 E55.9 Z79.899 Office Visit 12/08/2015 11:00a [facility] Services Of Nadine Toro, [facility] 67621 M81.0 [facility] E55.9 N18.3 Z79.899 Office Visit 09/07/2015 11:30a [facility] Services Of Nadine Toro, [facility] 00039 M81.0 [facility] K21.9 N18.3 E55.9 Z92.29 Office Visit 08/20/2015 9:30a [facility] Carson Hartley, 71273 I25.10 [facility] Tyler R07.9 Office Visit 07/16/2015 9:15a [facility] Carson Hartley, 47868 I25.10 [facility] [place] I10 R07.9 Office Visit 05/03/2015 11:00a [facility] Virgil Spence M.D. 03724 S53.401D C.M.A. S83.402D S83.92xA S83.91xA Office Visit 04/19/2015 2:00p [facility] Virgil Spence M.D. 55846 S83.402D C.M.A. S83.401D S53.401A S83.92xA S83.91xA Office Visit 02/15/2015 11:00a [facility]ology Services Phillip Sheffield M.D. 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 786.05 276.8 401.9 Office Visit 10/25/2014 1:21p [facility] [place] [address] 584.9 Assoc,pc Hospitalists M.D. 786.05 276.8 401.9 Office Visit 10/16/2014 11:43a [facility],pc Renita De Jesus, 40152 562.12 Hospitalists M.D. 401.9 Office Visit 10/15/2014 11:43a [facility],pc Renita De Jesus, 26633 562.12 Hospitalists M.D. 414.00 401.9 Office Visit 10/14/2014 11:42a [facility],pc Renita De Jesus, 96924 562.12 Hospitalists M.D. 414.00 401.9 Office Visit 10/13/2014 11:41a [facility],pc Renita De Jesus, 76552 562.12 Hospitalists M.D. 414.00 401.9 Office Visit 10/12/2014 11:41a [facility],pc Renita De Jesus, 83898 562.12 Hospitalists M.D. 414.00 401.9 Office Visit 10/11/2014 11:40a [facility] Radha Rodriguez, 44412 562.12 Assoc,pc Hospitalists M.D. 414.00 401.9 Office Visit 08/13/2014 10:20a Rheumatology Services Phillip Sheffield, 80555 733.01 Of [facility] [place] 724.00 338.4 715.09 Office Visit 07/06/2014 12:48p [facility],pc Radha Rodriguez, 24700 578.9 Hospitalists M.D. 530.81 285.1 276.8 Office Visit 07/05/2014 2:08p [facility] Sommer Gordon, 59866 414.9 M.D. 794.31 401.1 V45.82 Office Visit 07/05/2014 12:45p [facility], Radha Rodriguez, 87146 578.9 Hospitalists M.D. 276.8 285.1 Office Visit 07/04/2014 12:45p [facility], Radha Rodriguez, 43552 578.9 Hospitalists M.D. 530.81 285.1 276.8 Office Visit 07/03/2014 12:44p [facility], Radha Rodriguez, 55702 578.9 Hospitalists M.D. 584.9 530.81 285.1 Office Visit 07/03/2014 3:45p [facility] Of Oracio Danielle, 77579 425.11 Flash Scott, [facility] Office Visit 07/02/2014 12:42p [facility],[place] [address] 578.9 Hospitalists 530.81 786.50 285.1 Office Visit 07/02/2014 10:33a [facility] Of Jacquelyn Maxwell M.D. 25014 780.2 Metal Molder 414.9 Office Visit 07/01/2014 12:42p [facility],[place] [address] 578.9 Hospitalists 584.9 530.81 285.1 Office Visit 06/30/2014 12:41p [facility],pc Naeem Reid M.D. 76757 578.9 Hospitalists 530.81 285.1 Office Visit 06/29/2014 10:15a [facility] Virgil Spence M.D. 59466 727.03 C.M.A. 996.41 V43.65 Office Visit 06/15/2014 2:00p [facility] Virgil Spence M.D. 92199 727.03 C.M.A. 996.41 V43.65 Office Visit 05/27/2014 10:30a [facility] 46352 414.01 [facility] [place] 401.9 Office Visit 04/23/2014 10:40a Rhe[facility]ology Services Phillip Sheffield, 78792 733.00 Of Flash Scott 724.00 729.1 715.09 Office Visit 04/16/2014 10:20a [facility]ology Services Norbert Kidd M.D. 77843 733.00 Of [facility] 724.00 729.1 715.09 Office Visit 02/06/2014 3:00p Neurosurgery Services Rob Salguero, 06160 721.2 Of [facility] M.Justin Office Visit 01/14/2014 11:00a [facility] Services Norbert Kidd M.D. 99946 726.10 Of [facility] 733.00 724.00 729.1 715.09 585.3 Office Visit 12/11/2013 1:45p [facility] Carson Hartley 41077 786.50 Flash Scott 401.9 414.01 Office Visit 12/04/2013 11:15a [facility] Of Krystle Crisostomo 14813 727.03 Tyrone Scott Office Visit 12/01/2013 9:00a [facility] Services Norbert Kidd M.D. 18702 715.09 Of [facility] 729.1 733.00 726.10 724.00 Office Visit 11/13/2013 1:30p [facility] Of Billy Cantrell M.D. 02658 718.81 C.Alo 726.10 726.2 Office Visit 05/27/2013 1:45p [facility] Carson Hartley 15102 786.50 [facility] V[facility]IE [facility] [place] 401.9 786.05 Office Visit 05/12/2013 10:26a [facility],immanuel Jessica 71526 786.51 Hospitalists D.O. 785.1 278.01 Office Visit 05/11/2013 10:26a [facility],immanuel Jessica 83268 786.51 Hospitalists D.O. 785.1 278.01 Office Visit 05/06/2013 11:15a [facility] Of Lula Ferrari, 34545 718.81 C.M.A. RPA-C 726.10 726.2 Office Visit 04/29/2013 1:15p [facility] Carson Hartley, 50314 786.50 Metal Molder AT [facility] M.DEladio 786.05 414.01 401.9 Office Visit 11/28/2012 11:15a [facility] Krystle Kranthi, 16862 727.82 Of CChristiano Scott 727.03 726.2 Office Visit 11/15/2012 10:15a [facility] Of Carson Hartley, 86936 414.9 [facility] MKindra 401.9 Office Visit 07/16/2012 11:45a [facility] Of Billy Cantrell M.D. 15350 719.45 C.M.A. 729.2 Office Visit 06/21/2012 10:15a [facility] Of Lula Ferrari, 12117 719.45 C.M.A. RPA-C 729.2 719.45 Office Visit 04/01/2012 3:15p [facility] Of Virgil Spence M.D. 05591 727.82 C.M.A. Office Visit 02/14/2012 10:15a [facility] Of Lula Calvoe, 41659 726.31 C.M.A. RPA-C Office Visit 01/26/2012 12:43p [facility], Renita De Jesus, 43572 786.51 Hospitalists [place] 414.01 401.9 Office Visit 01/25/2012 12:43p [facility], Naeem Reid M.D. 95323 786.51 Hospitalists 414.01 401.9 272.2 Office Visit 11/20/2011 2:30p [facility] Of Lula Ferrari 07530 726.31 C.M.A. RPA-C Office Visit 09/20/2011 8:15a [facility] Of Virgil Spence M.D. 42445 726.11 C.M.A. Office Visit 06/02/2011 3:45p [facility] Of Virgil Spence M.D. 14082 715.96 C.M.A. Office Visit 09/07/2010 2:45p [facility] Virgil Spence M.D. 67223 719.06 C.M.A. 996.41 Office Visit 02/23/2010 2:30p [facility] Virgil Spence M.D. 24018 996.41 C.M.A. Office Visit 02/16/2010 9:00a [facility] Virgil Spence M.D. 41061 996.41 C.M.A. 719.46 Office Visit 11/01/2009 10:00a DO Not Use [place] [address] [facility] 414.01 Office Visit 10/14/2009 10:00a DO Not [place] [address] 530.81 [facility] [facility] 599.0 272.4 Office Visit 07/09/2009 1:20p DO Not Use [employer] AT Anam Barroso, 933[address] 112.1 Sybil Scott 627.9 250.00 Office Visit 05/04/2009 11:40a DO Not Use [employer] AT Anam Barroso, 73530 721.0 Sybil Scott 307.42 272.4 278.00 401.9 716.86 530.81 840.4 414.01 412 300.00 565.0 Office Visit 05/02/2009 12:15a [facility], Randal Lerma M.D. 78838 786.50 Hospitalists Office Visit 04/30/2009 2:30a [facility], Renita De Jesus 67122 786.50 Hospitalists MEladioDEladio 401.9 Office Visit 04/29/2009 2:15a [facility], Renita De Jesus 29375 786.50 Hospitalists M.DEladio Office Visit 04/19/2009 3:00p [facility] Rob Salguero, 31598 721.0 Of [employer] M.DEladio Office Visit 03/22/2009 9:40a DO Not Use [employer] AT [place] 24422 307.42 Sybil Mendieta M.D. 721.0 250.00 278.00 272.4 401.9 716.86 530.81 840.4 414.01 412 300.00 Office Visit 01/20/2009 11:20a DO Not Use [employer] AT [facility], [address]240 721.0 [facility].DEladio Office Visit 01/08/2009 11:00a DO Not Use [employer] AT [facility], 67441 307.42 [facility].DEladio 250.00 278.00 272.4 401.9 716.86 530.81 840.4 414.01 412 300.00 721.0 Office Visit 12/16/2008 10:00a DO Not Use [employer] AT [facility], 96711 250.00 [facility].DEladio 278.00 401.9 272.4 716.86 530.81 414.01 412 565.0 Plan of Care Future Appointment(s):04/15/2018 11:30 am - RAY Pak [facility]01/16/2018 - Carson Hartley M.D.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
--- OUTSIDE RECORDS SUMMARY | 2018-01-19 18:16 | XMS REPORT ---
:1935 External Reference #:[id number] Author Organization [facility] Address [address] [place] [address] [place] [address] Phone [phone] Care Team Providers Name Role Phone [facility] Primary Care Physician Unavailable Payers Type Date Identification Numbers Payment Provider Subscriber Medicare Primary Effective: Policy Number: Medicare Deion Perdomo 1987 [id number] PayID: [id number] [facility] [address] [place] [address] Problems Date Description Provider Status Onset: 04/29/2013 [...] apnea syndrome Melony Noriega DNP, RN, Active [facility]- Onset: 09/29/2016 Hypersomnia Melony Noriega DNP, RN, Active [facility]- Family History Date Family Member(s) Problem(s) Comments [...] mg sc M81.0 Zsofia 2017 q6mon Cortez, [employer] Rollator Walker 06/04/ Active use as Krystle 2018 needed Tyler Crisostomo Vitamin A 03/30/ Active Capsules [id number] 1 daily Zsofia 2017 [place], [employer] Diltiazem HCL 01/17/ Active Caps ER 180mg 90caps 1 po qd Carson Anderson ER 2017 24HR Tyler Hartley Calcium 09/13/ Active Tablets 600-800mg- 60tabs 1 by M81.0 Zsofia 600/Vitamin D3 2017 Unit mouth [place]ez, twice a [employer] day Prolia 09/12/ Active Solution 60mg/ml 60mg 60 mg sc M81.0 Zsofia 2016 q6mon [place], [employer] Ibuprofen 05/24/ Active Tablets 800mg 60tabs 1 tab by M54.32 Zsofia 2016 mouth [place]ez, three [employer] times a day with food as needed Triamcinolone 02/27/ Active Lotion 0.025% 60ml use on R21 Zsofia Acetonide 2016 affected [place], area 2x [employer] daily as needed Nitrostat 12/31/ Active Tablets 0.4mg 25tabs one sl Carson Anderson 2011 Sub q5min up Brand, to 3 M.D. doses prn, if no relief call 911 Tramadol HCL 11/14/ Active Tablets 50mg 40tabs 1 po q Dirk 2010 4-6 hr Jordy, prn M.D. Simvastatin 12/16/ Active Tablets 20mg 90tabs 1 tablet 250.00 Chio 2008 at bed , ekaterina Mendieta M.D. Baby Aspirin 12/16/ Active Chewtabs 81mg 100uni 1 tablet 250.00 Chio 2008 ts po daily , Tyler Mendieta Lisinopril / Active Tablets 10mg 90tabs 1 po qd Kennethanorenetta , Tyler Mendieta Cod Liver Oil / [...] Hx Tablets 1000-800mg 90tabs 1 by M81.0 Kimberlyofiyoni Seaman 2016 - -Unit mouth Cortez, 09/21/ every day [employer] 2016 Calcium 600 09/06/ Hx Tablets 600mg 180tab 1 tab by M81.0 Zsofia 2016 - s mouth 2x Cortez, 09/12/ daily [employer] 2017 Percocet 04/19/ Hx Tablets 5-325mg 80tabs 1 by S83.402D Virgil 2015 - mouth Jordy, 09/06/ every 6 M.D. 2016 hours as needed pain Fiber 08/13/ Hx Tablets 625mg 60tabs 5 by Phillip 2014 - mouth Tyler Sheffield daily 2017 Duloxetine HCL 04/16/ Hx Caps 20mg 60caps 2 729.1 Phillip 2014 - Part together Tyler Sheffield 05/24/ by mouth 2014 every day Prolia 01/14/ Hx Solution 60mg/ml 60mg 60 mg sc M81.0 Norbert 2013 - q6mon Tyler Kidd 2016 M81.0 Caltrate 01/14/2014 Hx Tablets [id number] 60tabs 1 po bid 733.00 Norbert 600+D - Bernabe, 02/11/2015 M.DEladio Cymbalta 01/14/[address] Caceres 30mg 30caps 1 by mouth 729.1 Norbert - every day Kidd, 04/16/2014 M.D. Ativan 06/21/2012 Hx Tablets 1mg 2tabs take one Billy - tablet one Young, 05/24/2014 hour prior M.D. to procedure. May [...] etaminophen - hr prn Jordy, 04/26/2013 pain M.DEladio Bactrim DS 09/13/2010 Hx Tablets 800-160mg 6tabs 1 po bid Dirk - for 3 days Jordy, 04/26/2013 MKindra Percocet 09/12/2010 Hx Tablets 5-325mg 60tabs 1-2 po q4h Dirk - prn pain Jordy, 04/26/2013 M.DEladio Coumadin 09/12/2010 Hx Tablets 2.5mg 50tabs use as Dirk - directed Jordy, 04/26/2013 Tyler Sulfamethoxa 11/01/2009 Hx Tablets 400-80mg Take two Sivanand zole/Trimeth - for first a, oprim 04/26/2013 two days Poopal, then 1/2 MD tab at bedtime. Eq 10/14/[address] 20mg 30tabs 1 qd 530.81 Sivanand Omeprazole - a, 04/26/2013 MD Ebenezer Miconazole 3 07/09/2009 Hx Suppository 200mg 3units 1 112.1 Stevanov - suppositor ic, 08/11/2009 y in [facility] for M.D. days Cipro 05/24/2009 Hx Tablets [...] po 1 hour ic, 08/11/2009 prior to Anam procedure M.DEladio and 1 tablet at procedure Isosorbide 12/16/2008 [...] days Duloxetine HCL - Hx Caps DR Morris 30mg Dilip, 06/13/2016 RAY Ortiz-BC Sulfamethoxazole/Tri - Hx Tablets 800-160mg 1 by mouth Unknown methoprim DS 02/28/2016 twice a day Metamucil - Hx Unknown 01/12/2017 Vitamin D3 - Hx Capsules 1000Unit 1 daily Unknown 03/30/2017 Medications Administered in Office Medication Date Status Form Strength Qnty SIG Indications Ordering Provider Depomedrol Administered Injection Krystle 40MG 018 Tyler Crisostomo Prolia Administered Injection Nurse Visit Injection, 018 RH Denosumab, 1MG [place] Depomedrol Administered Injection Krystle 40MG 018 Tyler Crisostomo Depomedrol Administered Injection Krystle 40MG 018 Tyler Crisostomo Prolia Administered Injection Nurse Visit Injection, 018 RH Denosumab, 1MG Prolia Administered Injection Zsofia Injection, 017 RAY Toro Denosumab, 1MG Depomedrol Administered Injection Dirk Jordy, 40MG 017 M.DEladio Depomedrol Administered Injection Dirk Jordy, 40MG 017 M.DEladio Prolia Administered Injection Nurse Visit Injection, 017 C Denosumab, 1MG Prolia Administered Injection Zsofia Injection, 016 [place]ez, [employer]ER Denosumab, 1MG Inj, Administered Injection Carson DEladio Regadenoson, 016 Tyler Hartley 0.1 MG Technetium TC Administered Injection Carson Justin 99M 016 Tyler Hartley Tetrofosmin, Per Unit Dose Up To 40 Millicuries Prolia Administered Injection Phillip Injection, 015 Endo MEladioDEladio Denosumab, 1MG Prolia Administered Injection Phillip Injection, 015 Endo, MEladioDEladio Denosumab, 1MG Depomedrol Administered Injection Dirk Jordy, [...] Depomedrol Administered Injection Dirk Jordy, 40MG 013 MEladioDEladio Depomedrol Administered Injection Dirk Jordy, 80MG 012 M.DEladio Immunizations CPT Code Status Date Vaccine Lot # [id number] Given 12/23/2008 Zoster (Zostavax) Vital Signs Date Vital Result Comment 12/26/2017 Height 60 inches 5'0" Weight 220.00 [...] Color Yellow Urine Appearance Cloudy Urine Specific Mcgrew 1.013 1.010-1.030 Urine pH 8.0 5-9 Urine [...] Sensitivities 03/09/2014 Urine Culture (SEE NOTE) 12 Pthi 12/29/2013 PTH Intact 14.6 pmol/L High 1.3-9.3 Calcium (PTH Intact) 9.2 mg/dL 8.6-10.3 Protein Electrophoresis 12/29/2013 Total Protein(Pep) 7.8 g/dL 6.3 - 7.9 Albumin 3.6 g/dL 3.4-4.7 Alpha-1 Globulin 0.3 g/dL 0.1-0.3 Alpha-2 Globulin 1.1 g/dL 0.6-1.0 Beta Globulin 1.1 g/dL 0.7-1.2 Gamma Globulin 1.8 g/dL 0.6-1.6 Albumin/Globulin Ratio 0.84 Impression See Comment 13 Vitamin D, 25 Hydroxy 12/29/2013 25-Hydroxy Vitamin D2 <4.0 ng/mL 25-Hydroxy Vitamin D3 29 ng/mL 25-Hydroxy Vitamin D Total 29 ng/mL 14 RBC Leukoreduced 09/22/2010 RBC Leukoreduced [id number] O <SEE NOTE> 15 Patient Blood Type O POSITIVE Antibody Screen NEGATIVE Laboratory test finding 09/22/2010 Release Date 09/25/10 16 Basic Metabolic Panel 09/21/2010 Sodium 138 mmol/L [...] > 60 eGFR 69.9 > 60 18 Hemoglobin/Hematacrit 09/21/2010 Hemoglobin 10.0 g/dL Low 12.0-16.0 Hematocrit 30 % Low 35-47 Laboratory test finding 09/12/2010 Release Date 09/23/10 [...] 101-111 19 Co2 (Carbon Dioxide) 29.0 mmol/L 22-32 19 Anion Gap 8.0 mmol/L 2-11 19, [...] Discard Date 09/26/10 19, 25 RBC Leukoreduced [id number] O <SEE NOTE> 19, 26 RBC Leukoreduced [id number] O <SEE NOTE> 19, 27 Laboratory test finding 09/12/2010 PTT (Aptt) 29.6 25.15-38.53 19 Protime 09/12/2010 Inr 0.94 0.82-1.17 19, 28 Protime 11.1 SEC 10.2-14.8 19, 29 Urinalysis W/Microscopic 09/12/2010 Ua Color YELLOW Yellow 19 Appearance-Urine CLOUDY Clear 19 Specific Mcgrew-Ur 1.024 1.010-1.030 19 Esterase-Urine 3+ Negative 19 Nitrite NEGATIVE Negative 19 Avvbizzpebxd-Ze-WCW NEGATIVE Negative 19 Protein-Urine 1+ Negative 19 PH-Urine 6.0 5-9 19 Blood-Urine 3+ Negative 19 Ketones-Urine NEGATIVE Negative 19 Bilirubin-Ur NEGATIVE Negative 19 Glucose-Urine NEGATIVE Negative 19 WBC-Urine TNTC 0-5 19 RBC-Urine 2-5 0-2 19 Epith Cells-Ur FEW None 19 Bacteria-Urine 4+ None 19 CBC With Manual Diff 10/22/2009 White Blood [...] mmol/L 22-32 Anion Gap 7.0 mmol/L 2-11 30 Glucose 84 mg/dL 70-100 31 BUN 38 mg/dL High 6-24 Creatinine 1.40 mg/dL 0.50-1.40 One Over Creatinine 0.70 BUN/Creatinine Ratio 27.1 High 8-20 Calcium 9.5 mg/dL 8.1-9.9 32 Total Protein 8.1 GM/DL 6.2-8.1 Albumin 4.4 GM/DL 3.2-5.2 Globulin 3.7 GM/DL 2-4 Albumin/Globulin Ratio 1.2 1-3 Bilirubin Total 0.7 mg/dL 0.4-1.5 33 Alkaline Phosphatase 93 U/L 30-110 Alt (SGPT) 10 U/L Low 14-54 Ast (Sgot) 15 U/L 12-42 eGFR Non- 39.3 > 60 eGFR 47.5 > 60 34 Laboratory test finding 10/22/2009 TSH 2.82 MIU/ML 0.34-5.60 Lipid Profile (Trig/Chol/HDL) 10/22/2009 Triglyceride 160 mg/dL 40-200 Cholesterol 167 mg/dL Less Than 200 35 High Density Lipoprotein 57 mg/dL 40-60 36 Cholesterol/HDL Ratio 2.93 AVERAGE 1-4.44 Low Density Lipoprotein 78 mg/dL Less Than 100 37 Urinalysis W/Microscopic 07/09/2009 Ua Color YELLOW Yellow Appearance-Urine CLEAR Clear Specific Mcgrew-Ur 1.017 1.010-1.030 Esterase-Urine 1+ Negative Nitrite NEGATIVE Negative Eyltjrplkgyi-Sb-LAU NEGATIVE Negative Protein-Urine NEGATIVE Negative PH-Urine 6.0 [...] Color RED Yellow Appearance-Urine TURBID Clear Specific Mcgrew-Ur 1.007 Low 1.010-1.030 Esterase-Urine 3+ Negative Nitrite POSITIVE Negative Fdkyjgnnozoz-Pp-TJP NEGATIVE Negative Protein-Urine 3+ Negative PH-Urine 6.0 [...] finding 05/01/2009 Troponin-I (TnI) 0.04 NG/ML 48 Comp Metabolic Panel 04/29/2009 Sodium 137 mmol/L 135-145 Potassium 3.2 mmol/L Low 3.5-5.0 Chloride 98 mmol/L Low 101-111 Co2 (Carbon Dioxide) 31.0 mmol/L 22-32 Anion Gap 8.0 mmol/L 2-11 49 Glucose 91 mg/dL 70-100 50 BUN 20 mg/dL 6-24 Creatinine 1.13 mg/dL 0.50-1.40 One Over Creatinine 0.80 BUN/Creatinine Ratio 17.7 8-20 Calcium 9.5 mg/dL 8.1-9.9 51 Total Protein 6.1 GM/DL Low 6.2-8.1 Albumin 4.1 GM/DL 3.2-5.2 Globulin 2.0 GM/DL 2-4 Albumin/Globulin Ratio 2.1 1-3 Bilirubin Total 0.9 mg/dL 0.4-1.5 52 Alkaline Phosphatase 82 U/L 30-110 Alt (SGPT) 13 U/L Low 14-54 Ast (Sgot) 22 U/L 12-42 eGFR Non- 50.4 > 60 eGFR 61.0 > 60 53 Laboratory test finding 04/29/2009 Troponin-I (TnI) 0.02 NG/ML 54 Magnesium Stat 04/29/2009 Magnesium 2.1 mg/dL 1.7-2.6 Amylase Stat 04/29/2009 Amylase 52 U/L 30-125 Laboratory test finding 04/29/2009 Lipase 25 U/L 22-51 CBC With Electronic Diff 04/29/2009 White Blood [...] Eosinophils 0.2 0-0.6 Abs Basophils 0 0-0.2 55 Protime Stat 04/29/2009 Inr 0.97 0.97-1.03 56 Protime 11.4 SEC Low 11.5-12.2 57 PTT (Aptt) Stat 04/29/2009 PTT (Aptt) 32.5 25.15-38.53 58 Laboratory test finding 04/29/2009 D Dimer Quantitative < 200 Less Than 230 BNP Evaluatr 37.0 pg/mL 0-100 Surgical Pathology 01/22/2009 Surgical Pathology <SEE 59 NOTE> CBC With Electronic 01/04/2009 White Blood [...] mmol/L 22-32 Anion Gap 10.0 mmol/L 2-11 60 Glucose 96 mg/dL 70-100 61 BUN 30 mg/dL High 6-24 Creatinine 1.40 mg/dL 0.50-1.40 One Over Creatinine 0.70 BUN/Creatinine Ratio 21.4 High 8-20 Calcium 8.9 mg/dL 8.1-9.9 62 Total Protein 7.4 GM/DL 6.2-8.1 Albumin 3.7 GM/DL 3.2-5.2 Globulin 3.7 GM/DL 2-4 Albumin/Globulin Ratio 1.0 1-3 Bilirubin Total 0.5 mg/dL 0.4-1.5 63 Alkaline Phosphatase 87 U/L 30-110 Alt (SGPT) 12 U/L Low 14-54 Ast (Sgot) 18 U/L 12-42 eGFR Non- 39.4 > 60 eGFR 47.7 > 60 64 Magnesium Stat 01/04/2009 Magnesium 2.3 mg/dL 1.7-2.6 Laboratory test finding 01/04/2009 Troponin-I (TnI) 0.02 NG/ML 65 Protime Stat 01/04/2009 Inr 0.99 0.86-1.13 66 Protime 12.1 SEC 10.7-13.6 67 PTT (Aptt) Stat 01/04/2009 PTT (Aptt) 28.2 25.15-38.53 68 Laboratory test finding 01/01/2009 Hemoglobin A1c 6.4 % High Less Than 6.0 69 CBC With Manual Diff 01/01/2009 White Blood [...] mmol/L 22-32 Anion Gap 9.0 mmol/L 2-11 70 Glucose 79 mg/dL 70-100 71 BUN 21 mg/dL 6-24 Creatinine 1.20 mg/dL 0.50-1.40 One Over Creatinine 0.80 BUN/Creatinine Ratio 17.5 8-20 Calcium 9.5 mg/dL 8.1-9.9 72 Total Protein 7.6 GM/DL 6.2-8.1 Albumin 3.8 GM/DL 3.2-5.2 Globulin 3.8 GM/DL 2-4 Albumin/Globulin Ratio 1.0 1-3 Bilirubin Total 0.6 mg/dL 0.4-1.5 73 Alkaline Phosphatase 96 U/L 30-110 Alt (SGPT) 14 U/L 14-54 Ast (Sgot) 18 U/L 12-42 eGFR Non- 47.1 > 60 eGFR 57.0 > 60 74 Lipid Profile (Trig/Chol/HDL) 01/01/2009 Triglyceride 64 mg/dL 40-200 Cholesterol 174 mg/dL Less Than 200 75 High Density Lipoprotein 70 mg/dL High 40-60 76 Cholesterol/HDL Ratio 2.49 AVERAGE 1-4.44 Low Density Lipoprotein 91 mg/dL Less Than 100 77 Urine Microalbumin Random 01/01/2009 Microalbumin (MG/L) 40.0 mg/L Urine Creatinine 138.18 mg/dL Fortunato Alb/Creatinine Ratio 28.9 UG/MG Less Than 30 78 1 Because ethnic data is not always [...] developed and its performance characteristics determined by [facility] in a manner consistent with CLIA requirements. This test has not been cleared or approved by the U.S. Food and Drug Administration. Test Performed by: [address] [address] Systems Engineering Manager: Yayo Harding II, M.D., Ph.D. 6 standing order 7 [...] <15 (or dialysis) 8 Test Performed by: [place] [address] Systems Engineering Manager: Yayo Harding II, M.D., Ph.D. 9 Because [...] Acute inflammation: >10.00 12 RUN DATE: 03/11/14 [facility] LAB LIVE PAGE 1 RUN TIME: [address] [place] [address] Specimen Inquiry Name: DEION PERDOMO : [address]: Anam Barroso MD Acct: [id number] Unit: [id number] AGE: 78 Location: LAB Re03/09/14 SEX: F Status: REG REF SPEC: [id number] HELLEN: 03/09/14-[address] [facility] [address]: Anam Barroso MD PC REQ: [id number] RECD: 03/09/14 STATUS: WILL GREWAL DR: Norbert Kidd MD _ SOURCE: URINE SPDESC: ORDERED: Urine Culture QUERIES: Medent Number [id number] Procedure Result Verified Site Urine Culture Final 03/11/14- 1108 ML Organism 1 NORMAL RONAL [place] Count >100,000 (Many) CFU/ML END OF REPORT * ML=Testing performed at Main Lab DEPARTMENT OF PATHOLOGY, [address] [place] [address] Chase Moore M.D. Director [facility] # [id number] RESULT: Polyclonal hypergammaglobulinemia Test Performed by: [place] [id number] Systems Engineering Manager: Saran Lomax M.D. 14 REFERENCE VALUE 25-HYDROXY D TOTAL (D2+D3) Optimum levels in the healthy population are 20-50, patients with bone disease may benefit from higher levels within this range. Test Performed by: [place] [id number] Systems Engineering Manager: Saran Lomax M.D. 15 [id number] OP [facility] 09/22/10 1356 16 ANY BLOOD NOT GIVEN [...] 3 DAYS OF THE SURGERY DATE. 26 [id number] OP PC TRANSFUSED 09/20/10 1136 27 [id number] OP PC TRANSFUSED 09/20/10 1136 28 Recommended INR for Patients on Oral Anticoagulants Prophylaxis 2.0 - 3.0 Treatment of thrombosis 2.0 - 3.0 Prevention of embolism 2.0 - 3.0 Prevention of embolism from prosthetic heart valves 2.5 - 3.5 29 DIAGNOSIS,TREATMENT,AND THERAPY MUST BE BASED ON THE INR VALUE ALONE. 30 Anion gap measurement may be of limited value in the presence of any alkalosis, especially in a combined acid base disorder. . 31 Note change in reference range as of 11/14/07. The change was based on recommendations from the [employer]. 32 Please note change in reference range effective 07 . 33 A metabolite of Naproxen, O-desmethylnaproxen, has been shown to interfere with the [place] [facility] method for measuring total bilirubin. Samples from patients who have taken Naproxen have shown spurious elevation in total bilirubin levels. 34 Because ethnic data is not always readily [...] 15-29 5 Kidney failure <15 (or dialysis) 35 CHOLESTEROL INTERPRETATION: Desirable: Less than 200 MG/DL Borderline-High Risk: 200-239 MG/DL High-Risk: 240 MG/DL and over 36 HDL INTERPRETATION: Undesirable: High Risk: Less than 40 MG/DL Desirable: Low Risk: Greater than 60 MG/DL 37 LDL INTERPRETATION: Low Risk Optimal Level: LDL Less than 100 MG/DL Near or Above Optimal: LDL 100-129 MG/DL Borderline High Risk: LDL 130-159 MG/DL High Risk: LDL 160-189 MG/DL Very High Risk: LDL Greater than 189 MG/DL 38 BUDDING YEAST PRESENT 39 FINAL: NO [...] change was based on recommendations from the [employer]. 45 Please note change in [...] 0.06 ng/mL NOT SUPPORTIVE OF DIAGNOSIS OF [place] 0.06 - 0.50 ng/ml INDETERMINATE: SUGGEST SERIAL STUDIES IF CLINICALLY INDICATED. Greater than 0.5 ng/mL CONSISTENT WITH DIAGNOSIS OF [place] . 49 Anion gap measurement may be of limited value in the presence of any alkalosis, especially in a combined acid base disorder. . 50 Note change in reference range as of 11/14/07. The change was based on recommendations from the [employer]. 51 Please note change in reference range effective 07 . 52 A metabolite of Naproxen, O-desmethylnaproxen, has been shown to interfere with the [place]rass[place] method for measuring total bilirubin. Samples from patients who have taken Naproxen have shown spurious elevation in total bilirubin levels. 53 Because ethnic data is not always readily [...] 15-29 5 Kidney failure <15 (or dialysis) 54 New Reference Range and Interpretation effective 12/27/2001 TnI (ng/ml) INTERPRETATION Less Than 0.06 ng/mL NOT SUPPORTIVE OF DIAGNOSIS OF [place] 0.06 - 0.50 ng/ml INDETERMINATE: SUGGEST SERIAL STUDIES IF CLINICALLY INDICATED. Greater than 0.5 ng/mL CONSISTENT WITH DIAGNOSIS OF [place] . 55 NRBC 56 Recommended INR for Patients on Oral Anticoagulants Prophylaxis 2.0 - 3.0 Treatment of thrombosis 2.0 - 3.0 Prevention of embolism 2.0 - 3.0 Prevention of embolism from prosthetic heart valves 2.5 - 3.5 57 DIAGNOSIS,TREATMENT,AND THERAPY MUST BE BASED ON THE INR VALUE ALONE. 58 PLEASE NOTE NEW REFERENCE RANGE EFFECTIVE 08. 59 ---- RUN DATE: 01/25/09 [facility] NMI LIVE PAGE 1 RUN TIME: 1346 Specimen Inquiry RUN USER: INTERFACE -- Name: DEION GONZALEZ Accsabi#: [id number] Status: REG REF Re01/22/09 Age/Sex: 73/F Unit#: [id number] Location: [facility] : 37 -- Specimen: [id number] SOUT Spec Date: 01/22/[address]: Pilo ferreira MD Spec Type: SURGICAL P Received: 01/22/09-9952 Copies to: Anam garcia MD SPECIMEN BIOPSY RIGHT COLON POLYP HISTORY POST-OP DIAGNOSIS: Small polyp removed CLINICAL INFORMATION: Rectal bleeding, history of polyp, removed 2006 GROSS DESCRIPTION Specimen received in formalin labelled Deion Aguirre, Right Colon Polyp and consists of several fragments of thomson-brown tissue measuring in aggregate 1.0 x 1.0 x 0.4 cm. Submitted entirely, one cassette. DIAGNOSIS Colon, right, biopsy: A. Tubular adenoma. B. No high grade dysplasia or malignancy. Signed Electronically by: CHASE MOORE MD 01/25/09 1344 -- -- DEPARTMENT OF PATHOLOGY, [address] [place] [address] [facility] Permit #[id number] Chase Moore M.D. Director Raj Acevedo M.D. International [employer] Compliance Manager Dir sara -- 60 Anion gap measurement may be of limited value in the presence of any alkalosis, especially in a combined acid base disorder. . 61 Note change in reference range as of 11/14/07. The change was based on recommendations from the [employer]. 62 Please note change in reference range effective 07 . 63 A metabolite of Naproxen, O-desmethylnaproxen, has been shown to interfere with the Jendrassik-Prema method for measuring total bilirubin. Samples from patients who have taken Naproxen have shown spurious elevation in total bilirubin levels. 64 Because ethnic data is not always readily [...] 15-29 5 Kidney failure <15 (or dialysis) 65 New Reference Range and Interpretation effective 12/27/2001 TnI (ng/ml) INTERPRETATION Less Than 0.06 ng/mL NOT SUPPORTIVE OF DIAGNOSIS OF [place] 0.06 - 0.50 ng/ml INDETERMINATE: SUGGEST SERIAL STUDIES IF CLINICALLY INDICATED. Greater than 0.5 ng/mL CONSISTENT WITH DIAGNOSIS OF [place] . 66 Recommended INR for Patients on Oral Anticoagulants Prophylaxis 2.0 - 3.0 Treatment of thrombosis 2.0 - 3.0 Prevention of embolism 2.0 - 3.0 Prevention of embolism from prosthetic heart valves 2.5 - 3.5 67 ATTENTION EFFECTIVE 08/05/08, THE IMPLEMENTATION OF NEW COAGULATION ANLAYZERS HAS CAUSED A SIGNIFICANT DIFFERENCE FOR PROTIME RESULTS IN SECONDS. THEREFORE, DIAGNOSIS,TREATMENT,AND THERAPY MUST BE BASED ON THE INR VALUE ONLY. 68 PLEASE NOTE NEW REFERENCE RANGE EFFECTIVE 08. 69 THERAPEUTIC TARGET FOR THE TREATMENT OF DIABETES MELLITUS PATIENTS IS <7% HBA1C, AND IN SELECTIVE PATIENTS <6.0%. PLEASE REFER TO [employer]ATION DIABETIC CARE GUIDELINES FOR FURTHER INFORMATION. 70 Anion gap measurement may be of limited value in the presence of any alkalosis, especially in a combined acid base disorder. . 71 Note change in reference range as of 11/14/07. The change was based on recommendations from the [employer]. 72 Please note change in reference range effective 07 . 73 A metabolite of Naproxen, O-desmethylnaproxen, has been shown to interfere with the [place]endrass[place]-Prema method for measuring total bilirubin. Samples from patients who have taken Naproxen have shown spurious elevation in total bilirubin levels. 74 Because ethnic data is not always readily [...] 15-29 5 Kidney failure <15 (or dialysis) 75 CHOLESTEROL INTERPRETATION: Desirable: Less than 200 MG/DL Borderline-High Risk: 200-239 MG/DL High-Risk: 240 MG/DL and over 76 HDL INTERPRETATION: Undesirable: High Risk: Less than 40 MG/DL Desirable: Low Risk: Greater than 60 MG/DL 77 LDL INTERPRETATION: Low Risk Optimal Level: LDL Less than 100 MG/DL Near or Above Optimal: LDL 100-129 MG/DL Borderline High Risk: LDL 130-159 MG/DL High Risk: LDL 160-189 MG/DL Very High Risk: LDL Greater than 189 MG/DL 78 MICROALBUMINURIA IN A RANDOM SAMPLE IS DEFINED : MICROALBUMIN/CREATININE RATIO OF 30-299 ug/mg. . Procedures Date CPT Code Description Status 12/10/2017 86152 Admin Of Inj Completed 10/22/2017 Bone Mineral Density Test Completed 08/16/2017 63155 Inject/Drain Joint/Bursa Major W/O US Completed 06/04/201720447 Inject/Drain Joint/Bursa Major W/O US Completed 06/04/2017 01285 Injection Single Tendon Origin/Insertion Completed 04/13/2017 48508 Admin Of Inj Completed 01/17/2017 37438 EKG Tracing & Interpretation Completed 10/25/2016 57565 Polysomnography Sleep Staging 4+ Parameters W/Cpap Completed 09/12/2016 59984 Admin Of Inj Completed 09/06/2016 59420 Polysomnography Sleep Staging 4+ Parameters Completed 06/14/2016 18436 EKG Tracing & Interpretation Completed 05/03/2016 70334 Inject/Drain Joint/Bursa Major W/O US Completed 05/03/2016 94240 Inject/Drain Joint/Bursa Intermediate W/O US Completed 04/10/2016 57804 Chemotherpy Admin Subcutaneous/Im Non-Hormonal Completed Anti-Neoplastic 04/10/2016 01361 Admin Of Inj Completed 09/10/2015 Bone Mineral Density Test Completed 09/07/2015 67648 Chemotherpy Admin Subcutaneous/Im Non-Hormonal Completed Anti-Neoplastic 07/29/2015 24291 Stress Test Completed 07/29/2015 87941 Myocardial Perfusion Imaging Tomographic (Spect) Completed Multiple Studies 07/16/2015 53595 EKG Tracing & Interpretation Completed 02/15/2015 88678 Chemotherpy Admin Subcutaneous/Im Non-Hormonal Completed Anti-Neoplastic 12/22/2014 87382 Trigger Finger Release Incision / Tendon Sheath Completed Incision 12/22/2014 46092 Trigger Finger Release Incision / Tendon Sheath Completed Incision 12/11/2014 48650 EKG Tracing & Interpretation Completed 08/13/2014 23873 Admin Of Inj Completed 07/06/2014 28249 Treadmill Interp/Report Only Completed 07/06/2014 08729 Stress Test Supervsn W/Out I/R Completed 07/02/2014 37016 ECHO Transthorasic Realtime 2D W Doppler & Color Flow Completed Hosp 07/02/2014 13298 EKG, Interpretation Only Completed 07/01/2014 98850 EKG, Interpretation Only Completed 07/01/2014 51380 EKG, Interpretation Only Completed 06/15/2014 27901 Inject Tendon Sheath Or Ligament Aponeurosis Eg Plantar Completed Fascia 04/09/201414279 Inject/Drain Joint/Bursa Major W/O US Completed 01/28/2014 27487 Admin Of Inj Completed 12/29/2013 Mammogram Completed 12/29/2013 Bone Mineral Density Test Completed 12/04/2013 43505 Inject Tendon Sheath Or Ligament Aponeurosis Eg Plantar Completed Fascia 11/13/201349998 Inject/Drain Joint/Bursa Major W/O US Completed 05/27/2013 95698 EKG Tracing & Interpretation Completed 05/08/2013 39743 Myocardial Perfusion Imaging Tomographic (Spect) Completed Multiple Studies 05/08/2013 15467 Stress Test Completed 05/06/201330707 Inject/Drain Joint/Bursa Major W/O US Completed 05/01/2013 04117 ECHO Transthoracic, Real-Time 2D With Doppler And Color Completed Flow 04/29/2013 83404 EKG Tracing & Interpretation Completed 11/28/2012 77965 Inject Tendon Sheath Or Ligament Aponeurosis Eg Plantar Completed Fascia 11/28/201275843 Inject/Drain Joint/Bursa Major W/O US Completed 11/15/2012 73508 EKG Tracing & Interpretation Completed 06/21/2012 41661 Rad Exam; Hip Unilat Completed 06/21/2012 96114 Rad Exam; Hip Unilat Completed 06/21/2012 59794 Rad Exam; Pelvis Completed 06/21/2012 54077 Rad Exam; Pelvis Completed 04/01/2012 93412 Inject/Drain Joint/Bursa Intermediate W/O US Completed 09/20/2011 60778 Rad Shoulder Comp, Min. 2 Views Completed 09/20/201193897 Inject/Drain Joint/Bursa Major W/O US Completed 06/02/2011 65928 Xray Knee 3 Views Completed 06/02/2011 36501 Rad Exam; Knee, Ap&L Completed 11/14/2010 82116 Rad Exam; Knee, Ap&L Completed 11/14/2010 38375 Rad Exam; Both Knees, Standing Ap Completed 10/03/2010 89362 Rad Exam; Knee, Ap&L Completed 10/03/2010 98608 Rad Exam; Both Knees, Standing Ap Completed 10/03/2010 83730 Rad Exam; Toes Completed 09/20/2010 38686 Revision TKA W Or W/O Allograft;Femoral & Entire Tibial Completed Component 09/20/2010 32956 Revision TKA W Or W/O Allograft;Femoral & Entire Tibial Completed Component 09/07/2010 81533 Xray Knee 3 Views Completed 09/07/201025967 Inject/Drain Joint/Bursa Major W/O US Completed 02/23/2010 67414 Inject/Drain Joint/Bursa Major W/O US Completed 02/16/2010 34740 Xray Knee 3 Views Completed 02/16/2010 88901 Rad Exam; Knee, Ap&L Completed 01/22/2009 Colonoscopy Completed Encounters Type Date Location Provider CPT E/M Dx Office Visit 10/15/2017 [facility] Nadine Toro, RAY 33489 M81.0 1:30p Of [facility] Office Visit 07/13/2017 [facility] Carson Hartley, 39107 I25.10 10:30a Flash Scott I10 Office Visit 06/29/2017 10:30a [facility] Of Nadine ToroRAY 37053 M81.0 [facility] M77.01 M19.021 M19.012 Office Visit 05/22/2017 11:40a [facility],[place] [address] K92.1 Hospitalists E11.59 K57.31 I25.10 Office Visit 05/21/2017 11:39a [facility],[place] [address] K92.1 Hospitalists E11.59 K57.31 I25.10 Office Visit 05/20/2017 11:38a [facility], [place] [address] K92.1 Hospitalists E11.59 K57.31 I25.10 Office Visit 05/19/2017 11:37a [facility], Lubna Jessica, 49326 K92.1 Hospitalists D.O. E11.59 K57.31 I25.10 Office Visit 04/23/2017 10:00a [facility] Of Debra Brown, 05222 M77.01 C.M.A. RPA-C M19.021 Office Visit 03/30/2017 11:00a [facility] Of Nadine ToroRAY 29642 M81.0 [facility] N18.9 M77.01 Office Visit 01/17/2017 11:45a [facility] Of Carson Hartley, 13159 I25.10 Flash Scott N18.9 I12.9 Office Visit 11/21/2016 10:45a [facility] Melony Noriega, 59436 G47.33 Services Of [facility] COLLEEN RN, [facility] G47.14 Office Visit 09/29/2016 10:00a [facility] Melony Noriega, 50140 G47.33 Services Of [facility] COLLEEN RN, [facility] G89.29 G47.14 F40.240 E66.09 Z68.36 Office Visit 09/12/2016 10:00a [facility] Of Nadine ArmandoRAY cruz 20790 M81.0 [facility] Z92.29 M54.5 Office Visit 08/16/2016 2:40p [facility] Kimberlykirstin Toro 89677 M79.604 Of [facility] M81.0 M54.42 Office Visit 08/08/2016 8:45a [facility] [place] Kim Á[place] [address] R06.81 Services Of [facility] R06.83 R40.0 R51 G47.8 R12 E66.09 Z68.37 Office Visit 07/21/2016 11:00a [facility] Of BLACK Arevalo 60566KFH I25.10 [facility] N18.9 I12.9 Office Visit 06/14/2016 9:00a [facility] Of [facility] BLACK Arevalo 16485 R07.9 I25.10 N18.9 G47.33 Office Visit 05/10/2016 11:15a [facility] Of Virgil Spence M.D. 91450 S86.111A C.M.A. Office Visit 05/03/2016 1:30p [facility] Of Virgil Spence M.D. 32811 M71.21 C.M.A. M19.121 S46.011A Office Visit 02/28/2016 10:00a [facility] Of Nadine RAY Toro 40347 R21 [facility] M81.0 E55.9 Z79.899 Office Visit 12/08/2015 11:00a [facility] Of Nadine ArmandoRAY cruz 82923 M81.0 [facility] E55.9 N18.3 Z79.899 Office Visit 09/07/2015 11:30a [facility] Services Of KimberlyRAY Lopez 01708 M81.0 [facility] K21.9 N18.3 E55.9 Z92.29 Office Visit 08/20/2015 9:30a [facility] Carson Hartley, 38094 I25.10 [facility] KiahKindra R07.9 Office Visit 07/16/2015 9:15a [facility] Carson Hartley, 73435 I25.10 [facility] KiahKindra I10 R07.9 Office Visit 05/03/2015 11:00a [facility] Of Virgil Spence M.D. 31689 S53.401D C.M.A. S83.402D S83.92xA S83.91xA Office Visit 04/19/2015 2:00p [facility] Of Virgil Spence M.D. 99591 S83.402D C.M.A. S83.401D S53.401A S83.92xA S83.91xA Office Visit 02/15/2015 11:00a [facility] Phillip Sheffield M.D. 99972 M81.0 Of [facility] Z79.899 M79.7 Office Visit 02/12/2015 11:00a [facility] Carson Hartley, 97377 I10 [place] I25.10 Office Visit 01/15/2015 10:32a [facility], [place] [address] K92.2 Hospitalists E13.9 I10 Office Visit 01/14/2015 10:30a [facility],[place] [address] K92.2 Hospitalists E13.9 I10 Office Visit 12/11/2014 3:30p [facility] BLACK Arevalo 45910 727.03 401.9 414.00 715.09 V72.81 Office Visit 12/09/2014 1:30p [facility] Of Lore Higginbotham, 87308 724.2 C.M.A. RPA-C 727.03 Office Visit 10/26/2014 1:22p [facility], Peter Bhagat, 43690 584.9 Hospitalists [place] 786.05 276.8 401.9 Office Visit 10/25/2014 1:21p [facility] [place], [address] 584.9 Assoc, Hospitalists [place] 786.05 276.8 401.9 Office Visit 10/16/2014 11:43a [facility], Renita De Jesus, 92304 562.12 Hospitalists MKindra 401.9 Office Visit 10/15/2014 11:43a [facility], Renita De Jesus, 41211 562.12 Hospitalists [place] 414.00 401.9 Office Visit 10/14/2014 11:42a [facility], Renita D eJesus, 87972 562.12 Hospitalists [place] 414.00 401.9 Office Visit 10/13/2014 11:41a [facility], Renita De Jesus, 47218 562.12 Hospitalists [place] 414.00 401.9 Office Visit 10/12/2014 11:41a [facility] Renita De Jesus, 01548 562.12 Hospitalists [place] 414.00 401.9 Office Visit 10/11/2014 11:40a [facility] Radha Rodriguez, 47795 562.12 Ass, Hospitalists [place] 414.00 401.9 Office Visit 08/13/2014 10:20a [facility] Phillip Sheffield, 35281 733.01 Flash Scott 724.00 338.4 715.09 Office Visit 07/06/2014 12:48p [facility], Radha Rodriguez, 38994 578.9 Hospitalists [place] 530.81 285.1 276.8 Office Visit 07/05/2014 2:08p [facility] Yuri Gordon, 53496 414.9 MKindra 794.31 401.1 V45.82 Office Visit 07/05/2014 12:45p [facility], Radha Rodriguez, 26232 578.9 Hospitalists [place] 276.8 285.1 Office Visit 07/04/2014 12:45p [facility], Radha Rodriguez, 01367 578.9 Hospitalists [place] 530.81 285.1 276.8 Office Visit 07/03/2014 12:44p [facility],pc Radha Rodriguez, 79170 578.9 Hospitalists M.DEladio 584.9 530.81 285.1 Office Visit 07/03/2014 3:45p [facility] Of Oracio Steinberg Danielle, 63070 425.11 Flash Scott, [facility] Office Visit 07/02/2014 12:42p [facility],[place] [address] 578.9 Hospitalists 530.81 786.50 285.1 Office Visit 07/02/2014 10:33a [facility] Of Jacquelyn Maxwell M.D. 00339 780.2 [facility] 414.9 Office Visit 07/01/2014 12:42p [facility] [address] 578.9 Hospitalists 584.9 530.81 285.1 Office Visit 06/30/2014 12:41p [facility],pc Naeme Reid M.D. 00686 578.9 Hospitalists 530.81 285.1 Office Visit 06/29/2014 10:15a [facility] Of Virgil Spence M.D. 35868 727.03 C.M.A. 996.41 V43.65 Office Visit 06/15/2014 2:00p [facility] Of Virgil Spence M.D. 86724 727.03 C.M.A. 996.41 V43.65 Office Visit 05/27/2014 10:30a [facility] Of Carson Hartley, 16254 414.01 Flash Scott 401.9 Office Visit 04/23/2014 10:40a [facility] Phillip Sheffield, 05009 733.00 Of Flash Scott 724.00 729.1 715.09 Office Visit 04/16/2014 10:20a [facility] Norbert Kidd M.D. 75126 733.00 Of Flash 724.00 729.1 715.09 Office Visit 02/06/2014 3:00p [facility] Rob Salguero, 52382 721.2 Of Flash Scott Office Visit 01/14/2014 11:00a [facility] Norbert Kidd M.D. 41525 726.10 Of [facility] 733.00 724.00 729.1 715.09 585.3 Office Visit 12/11/2013 1:45p [facility] Carson Hartley, 16948 786.50 [facility] [place] 401.9 414.01 Office Visit 12/04/2013 11:15a [facility] Of Krystle Crisostomo 95879 727.03 Tyrone Scott Office Visit 12/01/2013 9:00a [facility] Norbert Kidd M.D. 59077 715.09 Of [facility] 729.1 733.00 726.10 724.00 Office Visit 11/13/2013 1:30p [facility] Of Billy Cantrell M.D. 46830 718.81 C.MMaria M 726.10 726.2 Office Visit 05/27/2013 1:45p [facility] Carson Hartley, 42587 786.50 [facility] AT [facility] Tyler 401.9 786.05 Office Visit 05/12/2013 10:26a [facility] Ass, Lubna Jessica, 73068 786.51 Hospitalists D.O. 785.1 278.01 Office Visit 05/11/2013 10:26a [facility] Ass, Lubna Jessica, 29788 786.51 Hospitalists D.O. 785.1 278.01 Office Visit 05/06/2013 11:15a [facility] Of Lula Ferrari 15347 718.81 CChristiano RAPP-C 726.10 726.2 Office Visit 04/29/2013 1:15p [facility] Carson Hartley, 19936 786.50 [facility] AT [facility] Tyler 786.05 414.01 401.9 Office Visit 11/28/2012 11:15a [facility] Krystle Crisostomo 31402 727.82 Of Tyrone Scott 727.03 726.2 Office Visit 11/15/2012 10:15a [facility] Carson Hartley 24538 414.9 [facility] Tyler 401.9 Office Visit 07/16/2012 11:45a [facility] Of Billy Cantrell M.D. 81775 719.45 C.M.A. 729.2 Office Visit 06/21/2012 10:15a [facility] Of Lula Ferrari, 17021 719.45 C.M.A. RPA-C 729.2 719.45 Office Visit 04/01/2012 3:15p [facility] Of Virgil Spence M.D. 99894 727.82 C.M.A. Office Visit 02/14/2012 10:15a [facility] Of Lula Ferrari, 76586 726.31 C.M.A. RPA-C Office Visit 01/26/2012 12:43p [facility] Ass, Renita De Jesus 91659 786.51 Hospitalists M.DEladio 414.01 401.9 Office Visit 01/25/2012 12:43p [facility], Naeem Reid M.D. 41183 786.51 Hospitalists 414.01 401.9 272.2 Office Visit 11/20/2011 2:30p [facility] Of Lula [place]reshoe, 67294 726.31 C.M.A. RPA-C Office Visit 09/20/2011 8:15a [facility] Of Virgil Spence M.D. 06931 726.11 C.M.A. Office Visit 06/02/2011 3:45p [facility] Of Virgil Spence M.D. 19003 715.96 C.M.A. Office Visit 09/07/2010 2:45p [facility] Of Virgil Spence M.D. 83097 719.06 C.M.A. 996.41 Office Visit 02/23/2010 2:30p [facility] Of Virgil Spence M.D. 81147 996.41 C.M.A. Office Visit 02/16/2010 9:00a [facility] Of Virgil Spence M.D. 35605 996.41 C.M.A. 719.46 Office Visit 11/01/2009 10:00a DO Not Use [facility] [place] [address] 272.4 [place] 414.01 Office Visit 10/14/2009 10:00a DO Not Use [place] [place] [address] 530.81 [facility] 599.0 272.4 Office Visit 07/09/2009 1:20p DO Not Use Insecticide Mixer AT [facility], 30744 112.1 [place] M.DEladio 627.9 250.00 Office Visit 05/04/2009 11:40a DO Not Use Insecticide Mixer AT [facility] 38681 721.0 [place] M.DEladio 307.42 272.4 278.00 401.9 716.86 530.81 840.4 414.01 412 300.00 565.0 Office Visit 05/02/2009 12:15a [facility], Randal Lerma M.D. 20411 786.50 Hospitalists Office Visit 04/30/2009 2:30a [facility], Renita De Jesus, 49093 786.50 Hospitalists MKindra 401.9 Office Visit 04/29/2009 2:15a [facility], Renita De Jesus 80700 786.50 Hospitalists M.D. Office Visit 04/19/2009 3:00p [facility]surgery Services Rob Salguero, 48565 721.0 Of Insecticide Mixer M.D. Office Visit 03/22/2009 9:40a DO Not Use Insecticide Mixer AT [facility] 54596 307.42 [place] Mendieta M.D. 721.0 250.00 278.00 272.4 401.9 716.86 530.81 840.4 414.01 412 300.00 Office Visit 01/20/2009 11:20a DO Not Use Insecticide Mixer AT [facility] 17122 721.0 [place] M.DEladio Office Visit 01/08/2009 11:00a DO Not Use Insect[facility]er AT [facility] 92916 307.42 Sybil M.DEladio 250.00 278.00 272.4 401.9 716.86 530.81 840.4 414.01 412 300.00 721.0 Office Visit 12/16/2008 10:00a DO Not Use Insecticide Mixer AT [facility], 42315 250.00 [place] Dupont.D. 278.00 401.9 272.4 716.86 530.81 414.01 412 565.0 Plan of Care Future Appointment(s):01/16/2018 11:30 am - Carson Hartley M.D. at [facility]04/15/2018 11:30 am - RAY Pak at [facility]
[2018-01-19 21:51] LABS: ABS Basophils 0.1 10^3/ul (0-0.2); ABS Eosinophils 0.3 10^3/ul (0-0.6); ABS Lymphocytes 1.9 10^3/ul (1.0-4.8); ABS Monocytes 0.5 10^3/ul (0-0.8); ABS Nucleated RBC 0 10^3/ul; Eosinophil % 3.1 % (0-6); Hematocrit 38 % (35-47); Hemoglobin 12.8 g/dl (12.0-16.0); Lymphocyte % 21.5 % (25-47); Mean Corpuscular HGB Conc 33 g/dl (31-36); Mean Corpuscular Hemoglobin 31 pg (27-31); Mean Corpuscular Volume 94 fL (80-97); Mean Platelet Volume 7.5 um3 (7.4-10.4); Nucleated Red Blood Cells % 0.2; Platelet Count 231 10^3/ul (150-450); Red Blood Count 4.06 10^6/ul (4.00-5.40); Red Cell Distribution Width 14 % (10.5-15); White Blood Count 8.7 10^3/ul (3.5-10.8)
[2018-01-19 22:07] LABS: EGFR Non-African American 36.8 (>60)
--- NOTE | 2018-01-19 22:10 | ED ---
Complex/Multi-Sys Presentation - HPI Summary HPI Summary: This patient is an 82 year old F presenting to [facility] accompanied by her son and granddaughter with a chief complaint of left leg weakness, without pain, for the past few days. Patient typically ambulates with a walker without issues, but she fell a couple days ago due to leg weakness. Patient reports mild headache and numbness in the toes. She denies recent illness, fever, difficulty breathing, urinary or bowel symptoms. PMHx of DM, HTN, VA, arrhythmia, arthritis and kidney cysts. - History Of Current Complaint Chief Complaint: EDWeakness Time Seen by Provider: 01/19/18 21:55 Hx Obtained From: Patient Onset/Duration: Lasting Days Timing: Constant Character: Unable To Describe - weakness, denies pain Alleviating Factor(s): nothing Associated Signs And Symptoms: Positive: Weakness, Headache. Negative: SOB, Cough, Chest Pain, Fever - Allergies/Home Medications Allergies/Adverse Reactions: Allergies Allergy/AdvReac Type Severity Reaction Status Date / Time penicillin G Allergy Unknown Verified 01/20/18 00:05 Reaction Details ENVIRONMENTAL Allergy HEADACHES Uncoded 01/20/18 00:05 PMH/Surg Hx/FS Hx/Imm Hx Endocrine/Hematology History: Reports: Hx Diabetes, Hx Thyroid Disease - hypothyroid Denies: Hx Anticoagulant Therapy, Hx Blood Disorders, Hx Blood Transfusions, Hx Bone Marrow Disease, Hx Systemic Lupus Erythematosus, Hx Sickle Cell Disease , Hx Anemia, Hx Unexplained Bleeding Cardiovascular History: Reports: Hx Angina, Hx Angioplasty, Hx Coronary Artery Disease, Hx Deep Vein Thrombosis, Hx Hypercholesterolemia, Hx Hypertension, Hx Myocardial Infarction, Hx Peripheral Vascular Disease Denies: Hx Aneurysm, Hx Auto Implanted Cardiovert Defib, Hx Cardiac Arrest, Hx Cardiomegaly, Hx Congenital Heart Disease, Hx Congestive Heart Failure, Hx Hypotension, Hx Pacemaker/ICD, Hx Rheumatic Fever, Hx Syncope, Hx Valvular Heart Disease Respiratory History: Reports: Hx Asthma, Hx Sleep Apnea - states hx of but does not use CPAP at home Denies: Hx Chronic Bronchitis, Hx Chronic Obstructive Pulmonary Disease (COPD ), Hx Cystic Fibrosis, Hx Lung Cancer, Hx Pleural Effusion, Hx Pneumonia, Hx Pulmonary Edema, Hx Pulmonary Embolism, Hx Seasonal Allergies, Other Respiratory Problems/Disorders GI History: Reports: Hx Diverticulosis, Hx Gastroesophageal Reflux Disease, Hx Gastrointestinal Bleed Denies: Hx Cirrhosis, Hx Crohn's Disease, Hx Gall Bladder Disease, Hx Hiatal Hernia, Hx Irritable Bowel, Hx Jaundice, Hx Obstructive Bowel, Hx Ileostomy, Hx Pyloric Stenosis, Hx Ulcer, Other GI Disorders History: Denies: Hx Acute Renal Failure, Hx Benign Prostatic Hyperplasia, Hx Chronic Renal Failure, Hx Dialysis, Hx Kidney Infection, Hx Kidney Stones, Other Problems/Disorders Musculoskeletal History: Reports: Hx Arthritis - generalized, Hx Back Problems, Hx Tendonitis - fingers, 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) Denies: Hx Bursitis, Hx Congenital Bone Abnormalities, Hx Fibromyalgia, Hx Gout, Hx Orthopedic Injury, Hx Osteoporosis, Hx Scoliosis Sensory History: Reports: Hx Cataracts, Hx Contacts or Glasses, Hx Glaucoma, Hx Vision Problem, Hx Hearing Problem Denies: Hx Eye Injury, Hx Eye Prosthesis, Hx Macular Degeneration, Hx Deafness, Hx Hearing Aid, Other Sensory Impairments Opthamlomology History: Reports: Hx Cataracts, Hx Contacts or Glasses, Hx Glaucoma, Hx Vision Problem Denies: Hx Eye Injury, Hx Eye Prosthesis, Hx Macular Degeneration, Other Sensory Impairments Neurological History: Reports: Hx Headaches Denies: Hx Dementia, Hx Developmental Delay, Hx Migraine, Hx Seizures, Hx Spinal Cord Injury, Hx Transient Ischemic Attacks (TIA) Psychiatric History: Denies: Hx Anxiety, Hx Attention Deficit Hyperactivity Disorder, Hx Eating Disorder, Hx Depression, Hx Panic Disorder, Hx Post Traumatic Stress Disorder, Hx Inpatient Treatment, Hx Community Mental Health Tx, Hx Schizophrenia, Hx Bipolar Disorder, Hx Suicide Attempt, Hx Substance Abuse, Other Psychiatric Issues/Disorders - Cancer History Hx Chemotherapy: No Hx Radiation Therapy: No - Surgical History Surgery Procedure, Year, and Place: LEFT KNEE X2.....RIGHT KNEE X1. Hysterectomy Hx Anesthesia Reactions: No - Immunization History Date of Influenza Vaccine: 2017 Infectious Disease History: No Infectious Disease History: Reports: History Other Infectious Disease - herpes Denies: Hx Clostridium Difficile, Hx Hepatitis, Hx Human Immunodeficiency Virus (HIV), Hx of Known/Suspected MRSA, Hx Shingles, Hx Tuberculosis, Hx Known/ Suspected VRE, Hx Known/Suspected VRSA, Traveled Outside the [place] in Last 30 Days - Family History Known Family History: Positive: Hypertension, Diabetes, Other - Diverticulitis, sickle cell, arthritis Family History: Type II - Social History Alcohol Use: None Hx Substance Use: No Substance Use Type: Reports: None Hx Tobacco Use: No Smoking Status (MU): Never Smoked Tobacco Have You Smoked in the Last Year: No Review of Systems Negative: Fever Negative: Chest Pain Negative: Shortness Of Breath Gastrointestinal: Negative Positive: no symptoms reported Negative: Myalgia Positive: Weakness - left leg weakness, Numbness - in toes All Other Systems Reviewed And Are Negative: Yes Physical Exam - Summary Physical Exam Summary: Appearance: Well-appearing, Well-nourished, lying in bed comfortably Skin: Warm, dry, no obvious rash Eyes: sclera anicteric, no conjunctival pallor ENT: mucous membranes moist, pharynx appears normal Neck: Supple, nontender Respiratory: Clear to auscultation, no signs of respiratory distress Cardiovascular: Normal S1, S2. No murmurs. Normal distal pulses in tibial and radial bilaterally. Abdomen: Soft, nontender, normal active bowel sounds present Musculoskeletal: Left leg weakness with raising leg, left ankle plantarflexion and dorsiflexion are equal and preserved Neurological: A&Ox3, awake and alert, mentation is normal, speech is fluent and appropriate Psychiatric: affect is normal, does not appear anxious or depressed Triage Information Reviewed: Yes Vital Signs On Initial Exam: Initial Vitals Temp Pulse Resp BP Pulse Ox 98.6 F 75 16 166/71 99 01/19/18 17:51 01/19/18 17:51 01/19/18 17:51 01/19/18 17:51 01/19/18 17:51 Vital Signs Reviewed: Yes Diagnostics - Vital Signs Vital Signs Temp Pulse Resp BP Pulse Ox 01/19/18 20:23 98.2 F 64 14 150/77 100 01/19/18 17:51 98.6 F 75 16 166/71 99 - Laboratory Lab Results: Lab Results 01/19/18 Range/Units 21:20 WBC 8.7 (3.5-10.8) 10^3/ul RBC 4.06 (4.00-5.40) 10^6/ul Hgb 12.8 (12.0-16.0) g/dl Hct 38 (35-47) % MCV 94 (80-97) fL MCH 31 (27-31) pg MCHC 33 (31-36) g/dl RDW 14 (10.5-15) % Plt Count 231 (150-450) 10^3/ul MPV 7.5 (7.4-10.4) um3 Neut % (Auto) 68.7 (38-83) % Lymph % (Auto) 21.5 L (25-47) % [place]ie % (Auto) 6.0 (0-7) % Eos % (Auto) 3.1 (0-6) % Baso % (Auto) 0.7 (0-2) % Absolute Neuts (auto) 6.0 (1.5-7.7) 10^3/ul Absolute Lymphs (auto) 1.9 (1.0-4.8) 10^3/ul Absolute Monos (auto) 0.5 (0-0.8) 10^3/ul Absolute Eos (auto) 0.3 (0-0.6) 10^3/ul Absolute Basos (auto) 0.1 (0-0.2) 10^3/ul Absolute Nucleated RBC 0 10^3/ul Nucleated RBC % 0.2 Result Diagrams: 01/19/18 21:20 01/19/18 21:20 Lab Statement: Any lab studies that have been ordered have been reviewed, and results considered in the medical decision making process. - CT Brain CT CT Interpretation Completed By: Radiologist - No acute findings. ED Physician has reviewed this report. - EKG 2223 Cardiac Rate: Bradycardia - 59 BPM EKG Rhythm: Sinus Bradycardia Summary of EKG Findings: RBBB and LAFB Complex Multi-Symp Course/Dx Course Of Treatment: This is an elderly woman lives at home and gets around with a walker normally who comes to the ED complaining of weakness as manifested by inability to ambulate. She denies any complaints of pain and there are no focal complaints on review of systems. On exam, she is an elderly woman who appears well. Notable finding on exam is weakness of the left leg. She is unable to lift this off the bed although her dorsi and plantar flexion seem preserved. We did try to ambulate her and she is unable to bear weight on that leg. Lab work and CT scan of the head are unremarkable, but I am concerned that she may have had a small lacunar infarct resulting in weakness of this of this leg. In any event she is unable to ambulate and cannot go home. I have spoken to the hospitalist about admitting her for further evaluation and workup. - Diagnoses Provider Diagnoses: Left leg weakness, Lacunar infarct, acute - Physician Notifications Discussed Care Of Patient With: Jailene Mitchell Time Discussed With Above Provider: 23:50 Instructed by Provider To: Admit As Inpatient Discharge - Sign-Out/Discharge Documenting (check all that apply): Patient Departure - admit - Discharge Plan Condition: Guarded Disposition: ADMITTED TO [facility] Referrals: Samantha GARCIA,Chloe Valenzuela [Primary Care Provider] - - Attestation Statements Document Initiated by Scribe: Yes Documenting Scribe: Jaclyn Rushing Provider For Whom Scribe is Documenting (Include Credential): Bryan Lopez MD Scribe Attestation: Jaclyn Mir, scribed for Bryan Lopez MD on 01/20/18 at 0031.
--- NOTE | 2018-01-19 22:44 | RAD ---
EXAM: CT Head Without Intravenous Contrast EXAM DATE/TIME: 01/19/2018 10:22 PM CLINICAL HISTORY: 82 years old, female; Signs and symptoms; Walking, difficulty; Additional info: Head injury, recent fall with leg weakness TECHNIQUE: Axial computed tomography images of the head/brain without intravenous contrast. All CT scans at this facility use at least one of these dose optimization techniques: automated exposure control; mA and/or kV adjustment per patient size (includes targeted exams where dose is matched to clinical indication); or iterative reconstruction. COMPARISON: BRAIN WO CT BRAIN WO 05/16/2015 10:28 AM FINDINGS: Brain: No evidence of acute intracranial hemorrhage. No intracranial mass or mass effect. No significant white matter disease. The patel matter is intact. Ventricles: No obstructive hydrocephalus. Cavum interpositum anomaly. Bones/joints: Normal. No acute fracture. Sinuses: Normal as visualized. No acute sinusitis. Mastoid air cells: Normal as visualized. No mastoid effusion. Soft tissues: Normal. Other findings: Since prior head CT of 05/16/2015, no new findings. IMPRESSION: No acute findings. To contact [facility] with a general question: Operations Center - [phone] For direct physician to physician contact: Physician Hotline - [phone] [facility] ([facility] Facility ID #[id number])
[2018-01-19] MEDS ORDERED: oxyCODONE TAB* 5 MG TAB PO ONE (23:30)
[2018-01-20] MEDS ORDERED: Acetaminophen TAB* 325 MG PO PRN (00:26)
[2018-01-20] MEDS ORDERED: NS 0.9% 1000 ML* 1,000 ML IV SCH (00:30)
[2018-01-20] MEDS ORDERED: Nitroglycerin TAB 0.4 MG* 0.4 MG TAB SL PRN (00:31)
[2018-01-20] MEDS ORDERED: oxyCODONE/Acetamin 5/325 MG* TAB PO PRN (00:31)
--- NOTE | 2018-01-20 00:38 | ADMNOTE ---
Subjective Date of Service: 01/20/18 Interval History: code status full this is an admission h/p 60 min spent on admission to assess and eval pt hpi this is a 82 yr old aa female with hx of morbid obesity and other medical comorbidities was brought in by son after pt was unable to lift her lle/ unable to stand. worsening progressive weakness for 2 months but today could not ambulate or stand---> called her son who then helped her with her walker to a taxi to come in. nitial head ct is neg. ct of pelvis and x rays of lle ordered and pending----> pt has hx of osteoporosis and got " bone shot " q 6 months. she was found to be able to lift her lle against gravity for 15 degree for 2 sec and able to slowlly bend her left lower leg. pt lives alone and walks with walker --> she also has a left shoulder problem and has been eval by ortho outpt. pt has severe claustrophobia and declined mri of head ---> not warrented by her current condition intiial ekg did not reveal any acute st t change she does have a wbc but lung sounds clear ua ordered phx morbid obesity fritz but not compliant with cpap htn cad s/p 3 stents type ii dm on diet control only not one any meds for this problem peripheral neuropathy with numbness on her toes chronic left shoulder pain and unable to lift her arm above her head hx of lle dvt 2006 due to prolonged immobilization on a trip to [place] no recurrence afterwards osteoporosis on " bone shot " twice per year last bone density done this yr showed osteopenia diverticulitis s/p perf with partial colectomy 2014 pxhs s/p r carpal tunnel release s/p partial colectomy due to perf diverticulitis s/p b/l total knee replacement s/p hysterectomy s/p cataract extraction social hx no cig no etoh lives alone is in a snf walks with a walker fhx cad htn dm Family History: Findings - cad htn dm Social History: Findings - no cig no etoh walks with a walker lives alone Past Medical History: Findings - as above Review of Systems - Measurements Intake and Output: Intake and Output Last 24 Hours 01/17/18 01/18/18 01/19/18 01/20/18 06:59 06:59 06:59 06:59 Weight 215 lb - Review of Systems General Comments: pertinent as per hpi Objective Active Medications: Acetaminophen (Tylenol Tab*) 650 mg PO Q4H PRN PRN Reason: FEVER/PAIN Aspirin (Aspirin Ec Tab*) 81 mg PO DAILY JAH Diltiazem HCl (Cardizem Cd Cap*) 180 mg PO DAILY JAH Docusate Sodium (Colace Cap*) 100 mg PO DAILY JAH Ferrous Sulfate (Ferrous Sulfate Tab*) 325 mg PO DAILY JAH Sodium Chloride (Ns 0.9% 1000 Ml*) 1,000 mls @ 100 mls/hr IV PER RATE JAH Stop: 01/20/18 10:29 Lisinopril (Prinivil Tab*) 10 mg PO DAILY JAH Multivitamins/Minerals (Theragran/Minerals Tab*) 1 tab PO DAILY JAH Nitroglycerin (Nitroglycerin Tab 0.4 Mg*) 0.4 mg SL Q5M PRN PRN Reason: PAIN - CHEST Non-Formulary Medication (Calcium Carbonate/Vitamin D3 [Calcium 600-Vit D3 800 Tablet]) 1 each PO BID JAH Non-Formulary Medication (Cod Liver Oil [Cod Liver Oil]) 1 cap PO DAILY JAH Non-Formulary Medication (Cranberry [Cranberry]) 8,400 mg PO DAILY JAH Non-Formulary Medication (Denosumab(Nf)) 60 mg SUBCUT Q6M JAH Non-Formulary Medication (Vitamin A Palmitate [Vitamin A]) 10,000 unit PO DAILY JAH Omeprazole (Prilosec Cap*) 20 mg PO BID JAH Polyethylene Glycol/Electrolytes (Miralax*) 17 gm PO DAILY JAH Potassium Chloride (Klor Con Er Tab*) 10 meq PO DAILY JAH Senna (Senokot Tab*) 1 tab PO DAILY JAH Simvastatin (Zocor(Nf)) 20 mg PO BEDTIME JAH Tramadol HCl (Ultram*) 50 mg PO Q6HR PRN PRN Reason: PAIN Travoprost (Travatan Z 0.004% Opth (Nf)) 1 drop BOTH EYES BEDTIME JAH; Protocol Triamcinolone Acetonide (Triamcinolone 0.025% Oint *) 1 applic TOPICAL BID JAH Valacyclovir HCl (Valtrex 500 Mg (*)) 500 mg PO BID JAH; Protocol Vital Signs - 8 hr 01/19/18 01/19/18 01/19/18 17:51 20:23 21:51 Temperature 98.6 F 98.2 F Pulse Rate 75 64 63 Respiratory 16 14 Rate Blood Pressure 166/71 150/77 (mmHg) O2 Sat by Pulse 99 100 98 Oximetry 01/19/18 01/19/18 01/19/18 21:52 22:00 22:30 Temperature Pulse Rate 66 51 60 Respiratory Rate Blood Pressure 147/83 178/117 (mmHg) O2 Sat by Pulse 99 98 100 Oximetry 01/19/18 01/19/18 01/19/18 22:52 23:00 23:22 Temperature Pulse Rate 60 61 60 Respiratory Rate Blood Pressure 162/97 172/114 (mmHg) O2 Sat by Pulse 98 99 97 Oximetry 01/19/18 01/19/18 01/20/18 23:39 23:53 00:00 Temperature Pulse Rate 68 60 62 Respiratory Rate Blood Pressure 222/99 175/93 (mmHg) O2 Sat by Pulse 99 99 98 Oximetry Appearance: nad Eyes: No Scleral Icterus, PERRLA Ears/Nose/Mouth/Throat: NL Teeth, Lips, Gums, Clear Oropharnyx, Mucous Membranes Moist Neck: NL Appearance and Movements; NL JVP, Trachea Midline, No Thyroid Enlargement, Masses Respiratory: Symmetrical Chest Expansion and Respiratory Effort, Clear to Auscultation Cardiovascular: NL Sounds; No Murmurs; No JVD, RRR Abdominal: NL Sounds; No Tenderness; No Distention Extremities: - - trace pedal edema able to bend her lle and raise against gravity for 2 sec and able to hold her lle against gravity Skin: No Rash or Ulcers Neurological: Alert and Oriented x 3 - cranial n 2-12 grossly intact motor b/l ue and rle 5/5 rle 4/5 sensory b/l ue and le 2/2 plantar reflex downwards Result Diagrams: 01/19/18 21:20 01/19/18 21:20 Additional Lab and Data: Lab Results 01/19/18 Range/Units 21:20 WBC 8.7 (3.5-10.8) 10^3/ul RBC 4.06 (4.00-5.40) 10^6/ul Hgb 12.8 (12.0-16.0) g/dl Hct 38 (35-47) % MCV 94 (80-97) fL MCH 31 (27-31) pg MCHC 33 (31-36) g/dl RDW 14 (10.5-15) % Plt Count 231 (150-450) 10^3/ul MPV 7.5 (7.4-10.4) um3 Neut % (Auto) 68.7 (38-83) % Lymph % (Auto) 21.5 L (25-47) % [place] % (Auto) 6.0 (0-7) % Eos % (Auto) 3.1 (0-6) % Baso % (Auto) 0.7 (0-2) % Absolute Neuts (auto) 6.0 (1.5-7.7) 10^3/ul Absolute Lymphs (auto) 1.9 (1.0-4.8) 10^3/ul Absolute Monos (auto) 0.5 (0-0.8) 10^3/ul Absolute Eos (auto) 0.3 (0-0.6) 10^3/ul Absolute Basos (auto) 0.1 (0-0.2) 10^3/ul Absolute Nucleated RBC 0 10^3/ul Nucleated RBC % 0.2 EKG Data: ns no acute st t changes seen Assess/Plan/Problems-Billing Assessment: this is a 82 yr aa female with hx of morbid obesity and other medical problems presented to er with unable to stand or walk due to lle weakness. pt has this problem for two months ago but has been progressively worsening. intial head ct is neg ---> le x rays and pelvic ct ordered pending her wbc on admission is 12.2 ua pending - Patient Problems (1) Unable to walk Current Visit: Yes Status: Acute Code(s): R26.2 - DIFFICULTY IN WALKING, NOT ELSEWHERE CLASSIFIED SNOMED Code(s): 781036650 Comment: etiology unclear pt was able to raise lle against gravity for 15 degree for two sec hx of osteoporosis - ct of pelvis - x rays of lle - pt eval - tele with damon to make sure no arrythemia as a cause (2) Unable to walk Current Visit: Yes Status: Acute Code(s): R26.2 - DIFFICULTY IN WALKING, NOT ELSEWHERE CLASSIFIED SNOMED Code(s): 241718687 Comment: pt has bad legs and bad left shoulder might need short term rehab since she lives alone and walks with a walker pending upon pt eval (3) Weakness of left lower extremity Current Visit: Yes Status: Acute Code(s): R29.898 - OTH SYMPTOMS AND SIGNS INVOLVING THE MUSCULOSKELETAL SYSTEM SNOMED Code(s): 027265972 Comment: x rays and lle and ct of pelvis ordered (4) CAD (coronary artery disease) Current Visit: Yes Status: Acute Code(s): I25.10 - ATHSCL HEART DISEASE OF [place] CORONARY ARTERY W/O ANG PCTRS SNOMED Code(s): 04233627 Comment: stable low suspicion of cardicac ischemia as a cause of lle immobility tele with damon (5) HTN (hypertension) Current Visit: Yes Status: Acute Code(s): I10 - ESSENTIAL (PRIMARY) HYPERTENSION SNOMED Code(s): 15667962 Comment: sbp was 220 went down to 160 -resume all her home htn meds + prn hydralazine (6) Morbid obesity Current Visit: Yes Status: Acute Code(s): E66.01 - MORBID (SEVERE) OBESITY DUE TO EXCESS CALORIES SNOMED Code(s): 646941809 Comment: - ck a1c she does not want dm diet ---> cardiac diet ok by pt (7) Leukocytosis Current Visit: Yes Status: Acute Code(s): D72.829 - ELEVATED WHITE BLOOD CELL COUNT, UNSPECIFIED SNOMED Code(s): 774318462 Comment: no fever ? sources ck ua (8) Left shoulder pain Current Visit: Yes Status: Acute Code(s): M25.512 - PAIN IN LEFT SHOULDER SNOMED Code(s): 48780073 Comment: pt has been eval by ortho outpt pt ordered for am does not want mri ct arthorscopy if further eval needed (9) Diabetes mellitus Current Visit: Yes Status: Acute Code(s): E11.9 - TYPE 2 DIABETES MELLITUS WITHOUT COMPLICATIONS SNOMED Code(s): 41254534 Comment: says she does not take meds and uses diet control but declined dm diet - ck a1c (10) Osteoporosis Current Visit: Yes Status: Acute Code(s): M81.0 - AGE-RELATED OSTEOPOROSIS W /O CURRENT PATHOLOGICAL FRACTURE SNOMED Code(s): 35412685 Comment: hx of osteoporosis but bone scan 2018 earlier showed osteopenia - continue current meds ( shots twice per yr ) (11) Debility, unspecified Current Visit: Yes Status: Acute Code(s): R53.81 - OTHER MALAISE SNOMED Code(s): 08730743 Comment: supportive care (12) DVT prophylaxis Current Visit: Yes Status: Acute Code(s): FMB3881 - SNOMED Code(s): 414982179 (13) Chronic anemia Current Visit: Yes Status: Acute Code(s): D64.9 - ANEMIA, UNSPECIFIED SNOMED Code(s): 837997319 Comment: mild hg 12.8 chioma
--- NOTE | 2018-01-20 02:17 | RAD ---
EXAM: CT Abdomen and Pelvis Without Intravenous Contrast EXAM DATE/TIME: 01/20/2018 1:05 AM CLINICAL HISTORY: 82 years old, female; Injury or trauma; Fall; Initial encounter; Abrasion; Prior surgery; Additional info: Unable to stand with lle weakness TECHNIQUE: Axial computed tomography images of the abdomen and pelvis without intravenous contrast. All CT scans at this facility use at least one of these dose optimization techniques: automated exposure control; mA and/or kV adjustment per patient size (includes targeted exams where dose is matched to clinical indication); or iterative reconstruction. Coronal and sagittal reformatted images were created and reviewed. COMPARISON: A/P W CT ABD/PEL W 05/19/2017 10:29 AM FINDINGS: Lower thorax: No acute findings. ABDOMEN: Liver: Unremarkable. No mass. Gallbladder and bile ducts: Unremarkable. No calcified gallstones. No ductal dilation. Pancreas: Unremarkable. No ductal dilation. Spleen: Unremarkable. No splenomegaly. Adrenals: Unremarkable. No mass. Kidneys and ureters: Several nonobstructing punctate calcifications are present in the left kidney. No hydronephrosis or hydroureter. A 1.7 cm cyst is again noted at the lower pole right kidney. Other renal cortical cysts, seen previously, cannot be identified today due to lack of IV contrast. Stomach and bowel: A few diverticula are noted in the left colon. No evidence of diverticulitis. Appendix: No evidence of appendicitis. PELVIS: Bladder: Unremarkable as visualized. Contains no calcified stones. Reproductive: An 11 mm calcification in the left adnexa is unchanged prior exam. Resected uterus. ABDOMEN and PELVIS: Intraperitoneal space: No free air or significant free fluid. Bones/joints: Severe degenerative disc space narrowing at L2/L3. Grade 1 anterolisthesis of L4 on L5. No acute fracture. Soft tissues: A small umbilical hernia is more evident today, containing 2 short segments of small bowel. No bowel obstruction or evidence of strangulation. Surgical changes noted in the left abdomen. No evidence of bowel obstruction. Vasculature: The aorta demonstrates mild atherosclerotic calcification. Lymph nodes: No enlarged lymph nodes. IMPRESSION: 1. No acute findings. 2. Small umbilical hernia slightly larger than on prior study, containing 2 short segments of small bowel. No bowel obstruction or evidence of strangulation. 3. Punctate nonobstructing left renal calculi. No hydronephrosis. 4. Diverticulosis coli. No evidence of diverticulitis. 5. Stable right renal cyst. Other cortical renal cyst, seen on prior study, cannot be identified today due to of IV contrast. To contact [facility] with a general question: Operations Center - [phone] For direct physician to physician contact: Physician Hotline - [phone] [facility] ([facility] Facility ID #[id number])
[2018-01-20] MEDS ORDERED: hydrALAZINE TAB* 10 MG PO PRN (02:21)
[2018-01-20 03:10] LABS: Urine Appearance Cloudy; Urine Blood 2+ (Negative); Urine Color Yellow; Urine Ketones Negative (Negative); Urine Protein Negative (Negative); Urine Red Blood Cell Trace(0-2/hpf) (Absent); Urine Specific Gravity 1.016 (1.010-1.030); Urine Urobilinogen Negative (Negative); Urine White Blood Cell 1+(6-10/hpf) (Absent)
[2018-01-20] MEDS: traMADol TAB* 50 MG PO PRN ×3 (05:07→17:24)
--- NOTE | 2018-01-20 08:08 | RAD ---
INDICATION: Unable to stand. TECHNIQUE: 3 views of the left ankle were obtained. FINDINGS: The bones are in normal alignment. No fracture is seen. Joint spaces appear maintained. IMPRESSION: NO EVIDENCE FOR FRACTURE. R1NF
--- NOTE | 2018-01-20 08:09 | RAD ---
INDICATION: Unable to stand. TECHNIQUE: 2 views of the left lower leg were obtained. FINDINGS: The patient is status post total left knee replacement surgery. The bones and prostheses are in normal alignment. No fracture is seen. IMPRESSION: NO EVIDENCE OF FRACTURE. R1NF
--- NOTE | 2018-01-20 08:11 | RAD ---
INDICATION: Unable to stand. TECHNIQUE: 2 views of the left femur were obtained. FINDINGS: The bones are normal alignment. No fracture is seen. The patient is status post total left knee replacement surgery. IMPRESSION: NO EVIDENCE FOR FRACTURE. R1NF
[2018-01-20] MEDS ORDERED: DENOSUMAB 60 MG/ML SUBCUT SCH (09:00)
[2018-01-20] MEDS: Multivitamins/Minerals TAB PO SCH (09:02)
[2018-01-20] MEDS: Docusate CAP* 100 MG PO SCH (09:02)
[2018-01-20] MEDS: Ferrous Sulfate TAB* 325 MG PO SCH (09:02)
[2018-01-20] MEDS: Omeprazole CAP* 20 MG PO SCH ×2 (09:03→17:24)
[2018-01-20] MEDS: Lisinopril TAB* 10 MG PO SCH (09:03)
[2018-01-20] MEDS: Potassium Chlor TAB* 10 MEQ TAB.ER PO SCH (09:03)
[2018-01-20] MEDS: Calcium/Vitamin D TAB 250/125* TAB PO SCH ×2 (09:03→20:14)
[2018-01-20] MEDS: Polyethylene Glycol 3350* 17 GM PACKET PO SCH (09:03)
[2018-01-20] MEDS: Aspirin EC TAB* 81 MG TAB.EC PO SCH (09:04)
[2018-01-20] MEDS: Diltiazem CD CAP* 180 MG PO SCH (09:04)
[2018-01-20] MEDS: Senna TAB PO SCH (09:04)
[2018-01-20] MEDS: Triamcinolone 0.025% OINT * 15 GM TUBE TOPICAL SCH ×2 (09:05→20:19)
[2018-01-20] MEDS: ValACYclovir (*) 500 MG TAB PO SCH ×2 (09:05→20:14)
[2018-01-20] MEDS: VITAMIN A PALMITATE 10000 UNIT PO SCH (09:13)
[2018-01-20] MEDS: COD LIVER OIL PO SCH (09:13)
[2018-01-20] MEDS: CRANBERRY 8400 MG PO SCH (09:13)
--- NOTE | 2018-01-20 12:56 | PN ---
Subjective Date of Service: 01/20/18 Interval History: patient reports progressive weakness in her left leg for the past 2 months. reports that she also has pain in her left shoulder which is also chronic. states that the weakness has progressed to the point that she has difficulty ambulating. She does report left sided back pain, denies spinal tenderness with palpation. reports that she has fallen 2 times in the past 6 days stating that her legs just give out. Patient denies chest pain or shortness of breath. denies fever or chills. denies abd pain n/v/d. Family History: Unchanged from Admission - cad htn dm Social History: Unchanged from Admission - no cig no etoh walks with a walker lives alone Past Medical History: Unchanged from Admission - as above Objective Active Medications: Acetaminophen (Tylenol Tab*) 650 mg PO Q4H PRN PRN Reason: FEVER/PAIN Aspirin (Aspirin Ec Tab*) 81 mg PO DAILY [facility] Last Admin: 01/20/18 09:04 Dose: 81 mg Atorvastatin Calcium (Lipitor*) 10 mg PO BEDTIME [facility] Calcium/Vitamin D (Oscal D Tab 250/125*) 1 tab PO BID [facility] Last Admin: 01/20/18 09:03 Dose: 1 tab Diltiazem HCl (Cardizem Cd Cap*) 180 mg PO DAILY [facility] Last Admin: 01/20/18 09:04 Dose: 180 mg Docusate Sodium (Colace Cap*) 100 mg PO DAILY [facility] Last Admin: 01/20/18 09:02 Dose: 100 mg Ferrous Sulfate (Ferrous Sulfate Tab*) 325 mg PO DAILY [facility] Last Admin: 01/20/18 09:02 Dose: 325 mg Hydralazine HCl (Apresoline Tab*) 10 mg PO TID PRN PRN Reason: BLOOD PRESSURE Latanoprost (Xalatan 0.005%*) 1 drop BOTH EYES BEDTIME [facility]; Protocol Lisinopril (Prinivil Tab*) 10 mg PO DAILY [facility] Last Admin: 01/20/18 09:03 Dose: 10 mg Multivitamins/Minerals (Theragran/Minerals Tab*) 1 tab PO DAILY [facility] Last Admin: 01/20/18 09:02 Dose: 1 tab Nitroglycerin (Nitroglycerin Tab 0.4 Mg*) 0.4 mg SL Q5M PRN PRN Reason: PAIN - CHEST Non-Formulary Medication (Cod Liver Oil [Cod Liver Oil]) 1 cap PO DAILY [facility] Last Admin: 01/20/18 09:13 Dose: Not Given Non-Formulary Medication (Cranberry [Cranberry]) 8,400 mg PO DAILY [facility] Last Admin: 01/20/18 09:13 Dose: Not Given Non-Formulary Medication (Vitamin A Palmitate [Vitamin A]) 10,000 unit PO DAILY [facility] Last Admin: 01/20/18 09:13 Dose: Not Given Omeprazole (Prilosec Cap*) 20 mg PO BID AC [facility] Last Admin: 01/20/18 09:03 Dose: 20 mg Polyethylene Glycol/Electrolytes (Miralax*) 17 gm PO DAILY [facility] Last Admin: 01/20/18 09:03 Dose: 17 gm Potassium Chloride (Klor Con Er Tab*) 10 meq PO DAILY [facility] Last Admin: 01/20/18 09:03 Dose: 10 meq Senna (Senokot Tab*) 1 tab PO DAILY [facility] Last Admin: 01/20/18 09:04 Dose: 1 tab Tramadol HCl (Ultram*) 50 mg PO Q6HR PRN PRN Reason: PAIN Last Admin: 01/20/18 11:04 Dose: 50 mg Triamcinolone Acetonide (Triamcinolone 0.025% Oint *) 1 applic TOPICAL BID [facility] Last Admin: 01/20/18 09:05 Dose: 1 applic Valacyclovir HCl (Valtrex 500 Mg (*)) 500 mg PO BID [facility]; Protocol Last Admin: 01/20/18 09:05 Dose: 500 mg Vital Signs - 8 hr 01/20/18 01/20/18 01/20/18 05:07 07:13 07:24 Temperature 98.3 F Pulse Rate 59 Respiratory 16 16 16 Rate Blood Pressure 148/74 (mmHg) O2 Sat by Pulse 98 Oximetry 01/20/18 01/20/18 01/20/18 08:00 11:04 11:31 Temperature 97.7 F Pulse Rate 63 Respiratory 16 16 16 Rate Blood Pressure 159/76 (mmHg) O2 Sat by Pulse 100 Oximetry Oxygen Devices in Use Now: None Appearance: appears comfortable resting in bed , no acute distress Eyes: No Scleral Icterus Ears/Nose/Mouth/Throat: Clear Oropharnyx, Mucous Membranes Moist Neck: NL Appearance and Movements; NL JVP, Trachea Midline Respiratory: Symmetrical Chest Expansion and Respiratory Effort, Clear to Auscultation Cardiovascular: NL Sounds; No Murmurs; No JVD, No Edema Abdominal: NL Sounds; No Tenderness; No Distention Extremities: No Edema, No Clubbing, Cyanosis, - - c/o tenderness woth palpation to left lower back , no L- spine tenderness with palpation. radial pulses +2 bilat Skin: No Rash or Ulcers Neurological: Alert and Oriented x 3 Nutrition: Taking PO's Result Diagrams: 01/19/18 21:20 01/19/18 21:20 Additional Lab and Data: Lab Results 01/19/18 Range/Units 21:20 WBC 8.7 (3.5-10.8) 10^3/ul RBC 4.06 (4.00-5.40) 10^6/ul Hgb 12.8 (12.0-16.0) g/dl Hct 38 (35-47) % MCV 94 (80-97) fL MCH 31 (27-31) pg MCHC 33 (31-36) g/dl RDW 14 (10.5-15) % Plt Count 231 (150-450) 10^3/ul MPV 7.5 (7.4-10.4) um3 Neut % (Auto) 68.7 (38-83) % Lymph % (Auto) 21.5 L (25-47) % [place] % (Auto) 6.0 (0-7) % Eos % (Auto) 3.1 (0-6) % Baso % (Auto) 0.7 (0-2) % Absolute Neuts (auto) 6.0 (1.5-7.7) 10^3/ul Absolute Lymphs (auto) 1.9 (1.0-4.8) 10^3/ul Absolute Monos (auto) 0.5 (0-0.8) 10^3/ul Absolute Eos (auto) 0.3 (0-0.6) 10^3/ul Absolute Basos (auto) 0.1 (0-0.2) 10^3/ul Absolute Nucleated RBC 0 10^3/ul Nucleated RBC % 0.2 EKG Data: ns no acute st t changes seen Assess/Plan/Problems-Billing Assessment: this is a 82 yr aa female with hx of morbid obesity and other medical problems presented to er with unable to stand or walk due to lle weakness. pt has this problem for two months ago but has been progressively worsening. intial head ct is neg ---> le x rays and pelvic ct ordered pending her wbc on admission is 12.2 ua pending - Patient Problems (1) Weakness of left lower extremity Current Visit: Yes Status: Acute Code(s): R29.898 - OTH SYMPTOMS AND SIGNS INVOLVING THE MUSCULOSKELETAL SYSTEM SNOMED Code(s): 597119269 Comment: x rays and lle and ct of pelvis- No fracture PT - recommending STR at discharge CT abd/pelvis- Severe degenerative disc space narrowing at L2/L3. Grade 1 anterolisthesis of L4 on L5. No acute fracture. - i suspect this may be contributing to her left leg weakness and numbness - patient does not want MRI or surgical intervention if needed - will consult neurology in the AM - will get EMG tomorrow (2) CAD (coronary artery disease) Current Visit: Yes Status: Acute Code(s): I25.10 - ATHSCL HEART DISEASE OF [place] CORONARY ARTERY W/O ANG PCTRS SNOMED Code(s): 97805889 Comment: stable continue to monitor on tele -continue ditilazem, ASA and statin (3) Chronic anemia Current Visit: Yes Status: Acute Code(s): D64.9 - ANEMIA, UNSPECIFIED SNOMED Code(s): 845102423 Comment: stable HGB 12.8 (4) Diabetes mellitus Current Visit: Yes Status: Acute Code(s): E11.9 - TYPE 2 DIABETES MELLITUS WITHOUT COMPLICATIONS SNOMED Code(s): 37114719 Comment: Not on home medications at this time A1C - pending (5) HTN (hypertension) Current Visit: Yes Status: Acute Code(s): I10 - ESSENTIAL (PRIMARY) HYPERTENSION SNOMED Code(s): 24962832 Comment: SBP stable today 128 -continue all her home htn meds - prn hydralazine for SBP greater than 180 (6) Left shoulder pain Current Visit: Yes Status: Acute Code(s): M25.512 - PAIN IN LEFT SHOULDER SNOMED Code(s): 45270718 Comment: pt has been eval by ortho outpt pt ordered for am does not want mri ct arthorscopy if further eval needed - with continue with supportive care (7) DVT prophylaxis Current Visit: Yes Status: Acute Code(s): YTC5121 - SNOMED Code(s): 425414533 Status and Disposition: obv - weakness will need str at discharge
[2018-01-20] MEDS: oxyCODONE/Acetamin 5/325 MG* TAB PO PRN (20:13)
[2018-01-20] MEDS: Latanoprost 0.005%* 2.5 ml BTL BOTH EYES SCH (20:14)
[2018-01-20] MEDS: Atorvastatin* 10 MG TAB PO SCH (20:16)
[2018-01-21] MEDS: oxyCODONE/Acetamin 5/325 MG* TAB PO PRN ×5 (03:13→22:55)
[2018-01-21] MEDS ORDERED: Morphine VIAL* 4 MG/ML VIAL (1 ml vial) IV PRN (06:20)
[2018-01-21] MEDS ORDERED: LORazepam TAB(*) 0.5 MG PO PRN (06:20)
[2018-01-21] MEDS ORDERED: oxyCODONE/Acetamin 5/325 MG* TAB PO PRN (06:20)
[2018-01-21 07:45] LABS: ABS Basophils 0.1 10^3/ul (0-0.2); ABS Eosinophils 0.3 10^3/ul (0-0.6); ABS Lymphocytes 1.6 10^3/ul (1.0-4.8); ABS Monocytes 0.6 10^3/ul (0-0.8); ABS Neutrophils 5.6 10^3/ul (1.5-7.7); ABS Nucleated RBC 0 10^3/ul; Eosinophil % 3.8 % (0-6); Hematocrit 36 % (35-47); Hemoglobin 11.7 g/dl (12.0-16.0); Lymphocyte % 19.4 % (25-47); Mean Corpuscular HGB Conc 33 g/dl (31-36); Mean Corpuscular Hemoglobin 31 pg (27-31); Mean Corpuscular Volume 95 fL (80-97); Mean Platelet Volume 7.1 um3 (7.4-10.4); Nucleated Red Blood Cells % 0.1; Platelet Count 218 10^3/ul (150-450); Red Blood Count 3.77 10^6/ul (4.00-5.40); Red Cell Distribution Width 14 % (10.5-15); White Blood Count 8.1 10^3/ul (3.5-10.8)
[2018-01-21] MEDS: Multivitamins/Minerals TAB PO SCH (09:54)
[2018-01-21] MEDS: Senna TAB PO SCH (09:54)
[2018-01-21] MEDS: Diltiazem CD CAP* 180 MG PO SCH (09:54)
[2018-01-21] MEDS: Docusate CAP* 100 MG PO SCH (09:55)
[2018-01-21] MEDS: Aspirin EC TAB* 81 MG TAB.EC PO SCH (09:55)
[2018-01-21] MEDS: Potassium Chlor TAB* 10 MEQ TAB.ER PO SCH (09:55)
[2018-01-21] MEDS: Lisinopril TAB* 10 MG PO SCH (09:55)
[2018-01-21] MEDS: Ferrous Sulfate TAB* 325 MG PO SCH (09:56)
[2018-01-21] MEDS: ValACYclovir (*) 500 MG TAB PO SCH ×2 (09:57→22:55)
[2018-01-21] MEDS: Calcium/Vitamin D TAB 250/125* TAB PO SCH ×2 (09:57→20:09)
[2018-01-21] MEDS: Polyethylene Glycol 3350* 17 GM PACKET PO SCH (09:58)
[2018-01-21] MEDS: CRANBERRY 8400 MG PO SCH (10:07)
[2018-01-21] MEDS: COD LIVER OIL PO SCH (10:07)
[2018-01-21] MEDS: VITAMIN A PALMITATE 10000 UNIT PO SCH (10:07)
[2018-01-21] MEDS: Omeprazole CAP* 20 MG PO SCH ×2 (10:07→20:09)
--- NOTE | 2018-01-21 13:16 | PN ---
Subjective Date of Service: 01/21/18 Interval History: patient continues to c/o left hip and left shoulder pain, reports relief with current pain medications. reports decreased ability to move left leg and when standing left leg become weak. denies chest pain or shortness of breath. denies fever or chills, denies abd pain n/v/d. Family History: Unchanged from Admission - cad htn dm Social History: Unchanged from Admission - no cig no etoh walks with a walker lives alone Past Medical History: Unchanged from Admission - as above Objective Active Medications: Acetaminophen (Tylenol Tab*) 650 mg PO Q4H PRN PRN Reason: FEVER/PAIN Last Admin: 01/21/18 09:58 Dose: 650 mg Aspirin (Aspirin Ec Tab*) 81 mg PO DAILY [facility] Last Admin: 01/21/18 09:55 Dose: 81 mg Atorvastatin Calcium (Lipitor*) 10 mg PO BEDTIME [facility] Last Admin: 01/20/18 20:16 Dose: Not Given Calcium/Vitamin D (Oscal D Tab 250/125*) 1 tab PO BID [facility] Last Admin: 01/21/18 09:57 Dose: 1 tab Diltiazem HCl (Cardizem Cd Cap*) 180 mg PO DAILY [facility] Last Admin: 01/21/18 09:54 Dose: 180 mg Docusate Sodium (Colace Cap*) 100 mg PO DAILY [facility] Last Admin: 01/21/18 09:55 Dose: 100 mg Ferrous Sulfate (Ferrous Sulfate Tab*) 325 mg PO DAILY [facility] Last Admin: 01/21/18 09:56 Dose: 325 mg Hydralazine HCl (Apresoline Tab*) 10 mg PO TID PRN PRN Reason: BLOOD PRESSURE Latanoprost (Xalatan 0.005%*) 1 drop BOTH EYES BEDTIME [facility]; Protocol Last Admin: 01/20/18 20:14 Dose: 1 drop Lisinopril (Prinivil Tab*) 10 mg PO DAILY [facility] Last Admin: 01/21/18 09:55 Dose: 10 mg Multivitamins/Minerals (Theragran/Minerals Tab*) 1 tab PO DAILY [facility] Last Admin: 01/21/18 09:54 Dose: 1 tab Nitroglycerin (Nitroglycerin Tab 0.4 Mg*) 0.4 mg SL Q5M PRN PRN Reason: PAIN - CHEST Non-Formulary Medication (Cod Liver Oil [Cod Liver Oil]) 1 cap PO DAILY [facility] Last Admin: 01/21/18 10:07 Dose: Not Given Non-Formulary Medication (Cranberry [Cranberry]) 8,400 mg PO DAILY [facility] Last Admin: 01/21/18 10:07 Dose: Not Given Non-Formulary Medication (Vitamin A Palmitate [Vitamin A]) 10,000 unit PO DAILY [facility] Last Admin: 01/21/18 10:07 Dose: Not Given Omeprazole (Prilosec Cap*) 20 mg PO BID AC [facility] Last Admin: 01/21/18 10:07 Dose: 20 mg Oxycodone/Acetaminophen (Percocet 5/325 Tab*) 1 tab PO Q6H PRN PRN Reason: PAIN Last Admin: 01/21/18 09:57 Dose: 1 tab Polyethylene Glycol/Electrolytes (Miralax*) 17 gm PO DAILY [facility] Last Admin: 01/21/18 09:58 Dose: 17 gm Potassium Chloride (Klor Con Er Tab*) 10 meq PO DAILY [facility] Last Admin: 01/21/18 09:55 Dose: 10 meq Senna (Senokot Tab*) 1 tab PO DAILY [facility] Last Admin: 01/21/18 09:54 Dose: 1 tab Triamcinolone Acetonide (Triamcinolone 0.025% Oint *) 1 applic TOPICAL BID [facility] Last Admin: 01/20/18 20:19 Dose: 1 applic Valacyclovir HCl (Valtrex 500 Mg (*)) 500 mg PO BID [facility]; Protocol Last Admin: 01/21/18 09:57 Dose: 500 mg Vital Signs - 8 hr 01/21/18 01/21/18 05:51 09:57 Respiratory 16 18 Rate Oxygen Devices in Use Now: None Appearance: appears comfortable , awake to verbal , alert and oriented x 3 , no acute distress Eyes: No Scleral Icterus Ears/Nose/Mouth/Throat: Clear Oropharnyx, Mucous Membranes Moist Neck: NL Appearance and Movements; NL JVP, Trachea Midline Respiratory: Symmetrical Chest Expansion and Respiratory Effort, Clear to Auscultation Cardiovascular: NL Sounds; No Murmurs; No JVD, RRR, No Edema Abdominal: NL Sounds; No Tenderness; No Distention Extremities: No Edema, No Clubbing, Cyanosis, - - left leg with decreased motor function. pedal pulses +2 bilat Skin: No Rash or Ulcers Neurological: Alert and Oriented x 3 Nutrition: Taking PO's Result Diagrams: 01/21/18 07:32 01/19/18 21:20 Additional Lab and Data: Lab Results 01/19/18 Range/Units 21:20 WBC 8.7 (3.5-10.8) 10^3/ul RBC 4.06 (4.00-5.40) 10^6/ul Hgb 12.8 (12.0-16.0) g/dl Hct 38 (35-47) % MCV 94 (80-97) fL MCH 31 (27-31) pg MCHC 33 (31-36) g/dl RDW 14 (10.5-15) % Plt Count 231 (150-450) 10^3/ul MPV 7.5 (7.4-10.4) um3 Neut % (Auto) 68.7 (38-83) % Lymph % (Auto) 21.5 L (25-47) % [place] % (Auto) 6.0 (0-7) % Eos % (Auto) 3.1 (0-6) % Baso % (Auto) 0.7 (0-2) % Absolute Neuts (auto) 6.0 (1.5-7.7) 10^3/ul Absolute Lymphs (auto) 1.9 (1.0-4.8) 10^3/ul Absolute Monos (auto) 0.5 (0-0.8) 10^3/ul Absolute Eos (auto) 0.3 (0-0.6) 10^3/ul Absolute Basos (auto) 0.1 (0-0.2) 10^3/ul Absolute Nucleated RBC 0 10^3/ul Nucleated RBC % 0.2 Microbiology and Other Data: Microbiology 01/20/18 02:35 Urine Culture - Final Urine No Growth (<1,000 CFU/mL) EKG Data: ns no acute st t changes seen Assess/Plan/Problems-Billing Assessment: this is a 82 yr aa female with hx of morbid obesity and other medical problems presented to er with unable to stand or walk due to lle weakness. pt has this problem for two months ago but has been progressively worsening. intial head ct is neg ---> le x rays and pelvic ct ordered pending her wbc on admission is 12.2 ua pending - Patient Problems (1) Weakness of left lower extremity Current Visit: Yes Status: Acute Code(s): R29.898 - OTH SYMPTOMS AND SIGNS INVOLVING THE MUSCULOSKELETAL SYSTEM SNOMED Code(s): 715158903 Comment: x rays and lle and ct of pelvis- No fracture PT - recommending STR at discharge CT abd/pelvis- Severe degenerative disc space narrowing at L2/L3. Grade 1 anterolisthesis of L4 on L5. No acute fracture. - i suspect this may be contributing to her left leg weakness and numbness - consulted neurology - Agreed to MRI today- oredered pending (2) CAD (coronary artery disease) Current Visit: Yes Status: Acute Code(s): I25.10 - ATHSCL HEART DISEASE OF [place] CORONARY ARTERY W/O ANG PCTRS SNOMED Code(s): 97895399 Comment: stable continue to monitor on tele -continue ditilazem, ASA and statin (3) Chronic anemia Current Visit: Yes Status: Acute Code(s): D64.9 - ANEMIA, UNSPECIFIED SNOMED Code(s): 260886642 Comment: stable HGB 12.8 (4) Diabetes mellitus Current Visit: Yes Status: Acute Code(s): E11.9 - TYPE 2 DIABETES MELLITUS WITHOUT COMPLICATIONS SNOMED Code(s): 09724076 Comment: Not on home medications at this time A1C - pending (5) HTN (hypertension) Current Visit: Yes Status: Acute Code(s): I10 - ESSENTIAL (PRIMARY) HYPERTENSION SNOMED Code(s): 64068357 Comment: SBP stable today 128 -continue all her home htn meds - prn hydralazine for SBP greater than 180 (6) Left shoulder pain Current Visit: Yes Status: Acute Code(s): M25.512 - PAIN IN LEFT SHOULDER SNOMED Code(s): 78875730 Comment: pt has been eval by ortho outpt pt ordered for am does not want mri ct arthorscopy if further eval needed - with continue with supportive care (7) DVT prophylaxis Current Visit: Yes Status: Acute Code(s): OHO8756 - SNOMED Code(s): 112764328 Status and Disposition: inpatient - weakness will need str at discharge
[2018-01-21] MEDS: Triamcinolone 0.025% OINT * 15 GM TUBE TOPICAL SCH ×2 (13:57→22:55)
[2018-01-21] MEDS: Atorvastatin* 10 MG TAB PO SCH (19:54)
[2018-01-21] MEDS: Latanoprost 0.005%* 2.5 ml BTL BOTH EYES SCH (22:55)
--- NOTE | 2018-01-21 23:42 | CONS ---
NEUROLOGY CONSULTATION REPORT: DATE OF CONSULT: 01/21/18 REASON FOR CONSULT: Lower extremity weakness. PRIMARY PROVIDER: Rachel Medellin NP CHIEF COMPLAINT: Left leg weakness. HISTORY OF PRESENT ILLNESS: Ms. Perdomo is an 82-year-old right-handed female with history of arthritis; diabetes mellitus, type 2, managed with diet; hypertension; dyslipidemia, who presented to [facility] on 01/20/18 with fall and lower extremity weakness. The patient stated that she uses a walker for the last 2 years at baseline. However, on 01/20/18, she fell. She did not hit her head. She did not lose consciousness. She fell because she felt her legs gave out. She has had multiple knee surgeries in the past and complains of chronic low back pain. The pain is dull in nature, has been going on for 1 year, 8/10 in severity, she feels sore, and is associated with chronic numbness in her feet. She denied any radiating back pain. She has been evaluated for numbness in her feet by her primary care doctor who stated that this is related to diabetic neuropathy. She denied any incontinence. PAST MEDICAL HISTORY: Arthritis; diabetes; hypertension; dyslipidemia; anxiety ; claustrophobia; three knee surgeries, two involving the left and one involving the right knee; coronary artery disease and myocardial infarction in 2000, status post three stent placements; carpal tunnel surgery in the right hand; colectomy due to diverticulosis. MEDICATIONS: 1. Acetaminophen 650 mg p.o. every 4 hours as needed for pain. 2. Aspirin 81 mg p.o. daily. 3. Atorvastatin 10 mg p.o. at bedtime. 4. Calcium 1 tablet p.o. b.i.d. 5. Diltiazem 180 mg p.o. daily. 6. Colace 100 mg p.o. daily. 7. Ferrous sulfate 325 mg p.o. daily. 8. Hydralazine 10 mg p.o. 3 times daily as needed for elevated blood pressure. 9. Lisinopril 10 mg p.o. daily. 10. Multivitamin 1 tablet p.o. daily. 11. Nitroglycerin 0.4 mg sublingual every 5 minutes. 12. Omeprazole 20 mg p.o. twice daily. 13. Percocet 1 tablet p.o. every 6 hours. 14. MiraLAX 17 g p.o. daily. 15. Potassium 10 mEq p.o. daily. 16. Senna 1 tablet p.o. daily. 17. Valtrex 500 mg b.i.d. ALLERGIES: To PENICILLIN. FAMILY HISTORY: Her father suffered from cancer. Her mother had diabetes. REVIEW OF SYSTEMS: A 14-point review of systems was obtained, otherwise negative except for what was mentioned in the HPI. It is important to note the patient denied any chest pain, cough, shortness of breath, or palpation. She denied any headaches, visual disturbance, swallowing difficulty, but did endorse restriction of range of motion to the left upper extremity. PHYSICAL EXAM: Vitals: Temperature 98.7, pulse rate of 66, respiratory rate of 16, oxygen saturation 99%, blood pressure of 147/64. General: Well- nourished, well-developed, obese female, in no acute distress. Head is normocephalic without obvious abnormalities. Eyes: Conjunctivae/corneas are clear. Neck is supple and symmetrical with no carotid bruit. Lungs are clear to auscultation bilaterally. Cardiovascular: Regular rate and rhythm with normal S1, S2. Extremities: No hammertoes or high arches. Skin: No skin lesions or laceration. Psych: Affect is broad and normal mood. Neurological Examination: Mental status awake and alert, oriented to person, place, time, general circumstance. Her speech, language including expression, naming, repetition, and comprehension were assessed and found to be normal. Cranial nerves: Normal confrontation bilaterally. Pupils are midrange and react to light. Normal consensual response. Sensation is intact to forehead, cheeks, and jaw region bilaterally. Normal facial symmetry. She is able to hear throughout the history process. Symmetrical palatal elevation. Tongue is symmetric and midline with no anterior fasciculation. Motor: Right/left, no abnormal movements. No pronator drift. Normal bulk and tone throughout the upper extremity, but increase in tone in the left lower extremity. There is no fasciculation. Neck extension is 5. Shoulder range of motion is restricted bilaterally, left worse than right. Shoulder abduction 5/4. Elbow flexion 5/5 , extension 5/5. Wrist flexion 5/5, extension 5/5. Finger abduction 4/4 bilaterally. Hip flexion 4/3+, abduction 4/3+, knee flexion 5-/4+, extension 5 - /4+. Ankle dorsiflexion 5-/4, plantar flexion 5-/4. Great toe extension 5-/ 3. Reflexes, right/left brachioradialis, trace/trace; biceps, trace/trace; triceps, trace/trace; patella trace/1; ankle 0/0; plantar, flexor/flexor. Sensation is diminished to light touch on the medial and distal leg on the left. There is also distal to proximal sensory gradient bilaterally up to the demarcated at the knees bilaterally. Vibration sensations absent at the toes and 3 seconds at the medial malleolus bilaterally. Proprioception at the toes is intact. Coordination normal [id number] bilaterally. Gait was not assessed. DIAGNOSTIC STUDIES/LAB DATA: Laboratory, imaging, and other diagnostic testing : WBC 8.1, hemoglobin of 11, hematocrit of 36, platelet count of 218. Sodium of 139, potassium 3.7, creatinine is 1.38. TSH of 3.25. Vitamin B12 is 615. Urinalysis: No pyuria. CT of the abdomen and pelvis was obtained and reviewed. There is multilevel degenerative disk disease in the lumbar spine, worse at L2-L3 and L4-L5. MRI of the lumbar spine was obtained on 01/21/18. I do not have the final report on the MRI. However, the patient has multilevel spinal stenosis, mostly involving T10 and T11 with cord compression at that level and signaling of the spinal cord due to severe spinal stenosis. There is also severe spinal canal narrowing at L2- L3 and moderate canal stenosis at L4-L5 and L5-S1. Pending final report by Radiology. ASSESSMENT AND PLAN: Ms. Neris Perdomo is an 82-year-old pleasant female, who has bilateral lower extremity weakness related to thoracic spondylosis with myelopathy and signal in the spinal cord. The patient also has degenerative disk disease of the lumbar spine with multilevel spinal canal narrowing at L2-L3 , L4-L5, and L5-S1. I do suspect the bilateral L>R lower extremity weakness is related to the thoracic cord spondylosis. I recommend a neurosurgical consultation. The patient initially was hesitant about any surgical intervention. She may favor undergoing physical therapy and other conservative measures before considering any surgical intervention. I will defer further recommendation to the specialist. We discussed fall precautions. She had a vitamin B12 checked and was within normal range. An EMG /nerve conduction study would be useful as if it is normal we can exclude lumbosacral radiculopathy adding on to her current symptoms related to the thoracic myelopathy. We should consult Physical Therapy to evaluate and treat. With the patient will require rehabilitation. I will also recommend Decadron use with close monitoring of the patient's blood glucose and the appropriate use of PPI is recommended. The patient also has moderate-severe peripheral neuropathy that is likely related to diabetic polyneuropathy. She is not complaining of any pain; hence, no need for any neuropathic medication. We can do an EMG/NCS of the lower extremities as an outpatient to confirm and further evaluate the degree of the neuropathy. TIME SPENT: I spent a total of 70 minutes and greater than 50% was spent directly viewing the medical chart, obtaining history, examining the patient, reviewing the MRI study, education counseling, and discussing the treatment plan and prognosis with the patient and her grandchild at bedside. I also discussed these result with the primary team. I do not recommend any further neurological workup. [id number]/CPS #: [id number] LESLIE
[2018-01-22] MEDS: oxyCODONE/Acetamin 5/325 MG* TAB PO PRN ×6 (01:14→22:57)
[2018-01-22] MEDS: Multivitamins/Minerals TAB PO SCH (09:16)
[2018-01-22] MEDS: Potassium Chlor TAB* 10 MEQ TAB.ER PO SCH (09:16)
[2018-01-22] MEDS: Ferrous Sulfate TAB* 325 MG PO SCH (09:16)
[2018-01-22] MEDS: Diltiazem CD CAP* 180 MG PO SCH (09:17)
[2018-01-22] MEDS: ValACYclovir (*) 500 MG TAB PO SCH ×2 (09:17→21:23)
[2018-01-22] MEDS: Aspirin EC TAB* 81 MG TAB.EC PO SCH (09:18)
[2018-01-22] MEDS: Lisinopril TAB* 10 MG PO SCH (09:18)
[2018-01-22] MEDS: Calcium/Vitamin D TAB 250/125* TAB PO SCH ×2 (09:18→21:23)
[2018-01-22] MEDS: Docusate CAP* 100 MG PO SCH (09:18)
[2018-01-22] MEDS: Senna TAB PO SCH (09:18)
[2018-01-22] MEDS: Omeprazole CAP* 20 MG PO SCH ×2 (09:18→18:22)
[2018-01-22] MEDS: COD LIVER OIL PO SCH (09:20)
[2018-01-22] MEDS: CRANBERRY 8400 MG PO SCH (09:21)
[2018-01-22] MEDS: Polyethylene Glycol 3350* 17 GM PACKET PO SCH (09:21)
[2018-01-22] MEDS: Triamcinolone 0.025% OINT * 15 GM TUBE TOPICAL SCH ×2 (09:21→22:57)
[2018-01-22] MEDS: VITAMIN A PALMITATE 10000 UNIT PO SCH (09:21)
--- NOTE | 2018-01-22 09:58 | RAD ---
Indication: Left leg weakness and numbness. Image Sequences: Sagittal T1, T2, STIR, axial T1 and T2-weighted images of the lumbar spine were obtained. The vertebral bodies appear normal in height. Normal bone marrow signal is noted. At L5-S1, there is degenerative disc disease. Broad-based protrusion flattens the thecal sac. No central or foraminal stenosis is noted. At L4-5, there is grade 1 spondylolisthesis noted. Moderate degree of spinal stenosis is noted. Moderate facet hypertrophy is noted. At L3-4, the disc space appears normal in height and signal. Mild facet hypertrophy is noted. No central or foraminal stenosis is noted. At L2-3, degenerative disc disease, facet and ligamentous hypertrophy is noted which results in moderate to severe spinal stenosis. There is broad-based protrusion bilaterally narrowing both intervertebral foramen. At L1-2, broad-based protrusion is noted. No central or foraminal stenosis is noted. Degenerative disc disease is noted at T11-12 with broad-based protrusion. At T10-T11 there is broad-based protrusion. There is spondylitic ridge with broad-based protrusion. There is spondylitic ridge with increased signal at the spinal cord at T10-T11 which may represent myelomalacia. Mild there may be some mild to moderate cord compression at this level. IMPRESSION: 1. Multilevel degenerative disc disease. 2. At L4-5, grade 1 spondylolisthesis with broad-based protrusion and facet hypertrophy results in moderate degree of spinal stenosis. 3. At L2-3, spondylitic ridge with broad-based protrusion and facet hypertrophy results in moderate to severe spinal stenosis. There is extension into the foramina bilaterally with bilateral foraminal stenosis. 4. There is spinal stenosis at T10-T11 with broad-based protrusion and moderate degree of spinal stenosis and increased signal in the thoracic spinal cord. This may represent myelomalacia at this level.
[2018-01-22] MEDS: Magnesium Hydroxide LIQ* 30 ML UDC PO PRN (11:21)
--- NOTE | 2018-01-22 13:58 | CONSULT ---
Consult Consult: Neurosurgery Consult Date of Admission: 01/19/18 Date of Consult: 01/22/18 Reason for Consult: Lower extremity weakness Referring Provider: Rachel Medellin NP HPI: This is an 82 year old female with past medical history significant for HTN , CAD, diabetes and arthritis who [place] [facility] [place] a [place] complaining of bilateral lower extremity weakness, left worse than right, progressively worsening over the past 1-2 months. She describes heaviness in the bilateral lower extremities and inability to ambulate well. She has been using a walker for the past 2 months or so. She reports mild pain in the mid to low back without radiculopathy. She also reports baseline numbness of the bilateral feet and lower legs related to peripheral neuropathy. She reports falling while walking on 01/14/18. She did not sustain injury to her head and did not present to ED for evaluation. She then fell again while walking on 01/20/18. She states that she felt a tingling sensation down the bilateral legs and then they gave out resulting in a fall. She reported to ED after the fall and is currently admitted for evaluation and treatment. She denies bowel and bladder incontinence. She reports severe, painful arthritis of the left shoulder and limited ROM. Past Medical History: 1. HTN 2. Diabetes 3. CAD with stents 4. Osteoarthritis left shoulder 5. Diverticulosis Past Surgical History: 1. Left knee replacement x2 2. Right knee replacement x1 3. Partial colectomy 4. Hysterectomy - 1960 5. Carpal tunnel release - 2006 Home Medications: 1. Lisinopril TAB* [Prinivil TAB 10 MG*] 10 mg PO DAILY 01/25/12 [History Confirmed 01/20/18] 2. Travoprost Z 0.004% OPHTH (NF) [Travatan Z 0.004% OPTH (NF)] 1 drop BOTH EYES BEDTIME 06/30/14 [History Confirmed 01/20/18] 3. oxyCODONE/Acetamin 5/325 MG* [Percocet 5/325 TAB*] 1 tab PO QPM PRN 12/15/14 [History Confirmed 01/20/18] 4. Aspirin EC TAB* [Ecotrin EC Low Dose 81 MG*] 81 mg PO DAILY 05/19/17 [ History Confirmed 01/20/18] 5. Calcium Carbonate/Vitamin D3 [Calcium 600-Vit D3 800 Tablet] 1 each PO BID [History Confirmed 01/20/18] 6. Cod Liver Oil 1 cap PO DAILY 05/19/17 [History Confirmed 01/20/18] 7. Cranberry 8,400 mg PO DAILY 05/19/17 [History Confirmed 01/20/18] 8. Denosumab(NF) [Prolia(NF)] 60 mg SUBCUT Q6M 05/19/17 [History Confirmed 01/20] 9. Docusate CAP* [Colace Cap*] 100 mg PO DAILY 05/19/17 [History Confirmed 01/20] 10. Ferrous Sulfate TAB* 325 mg PO DAILY 05/19/17 [History Confirmed 01/20/18] 11. Multivitamins/Minerals TAB* [Theragran/minerals TAB*] 1 tab PO DAILY [History Confirmed 01/20/18] 12. Nitroglycerin TAB 0.4 MG* 0.4 mg SL Q5M PRN 05/19/17 [History Confirmed ] 13. Omeprazole CAP* [Prilosec CAP* 20 MG] 20 mg PO BID 05/19/17 [History Confirmed 01/20/18] 14. Potassium Chlor TAB* [Klor Con ER TAB 10 MEQ*] 10 meq PO DAILY 05/19/17 [ History Confirmed 01/20/18] 15. Triamcinolone 0.025% OINT * 1 applic TOPICAL BID 05/19/17 [History Confirmed 01/20/18] 16. ValACYclovir (*) [Valtrex 500 mg (*)] 500 mg PO BID 05/19/17 [History Confirmed 01/20/18] 17. Vitamin A Palmitate [Vitamin A] 10,000 unit PO DAILY 05/19/17 [History Confirmed 01/20/18] 18. dilTIAZem HCl [Diltiazem 24Hr ER] 180 mg PO DAILY 05/19/17 [History Confirmed 01/20/18] 19. Polyethylene Glycol 3350* [Miralax*] 17 gm PO DAILY #30 packet 05/22/17 [Rx Confirmed 01/20/18] 20. Senna TAB* [Senokot TAB*] 1 tab PO DAILY #30 tab 05/22/17 [Rx Confirmed ] Allergies: 1. Penicillin G 2. Environmental allergies Social History: This patient lives alone at [facility]. She has nursing/aide services at home. ROS: Full ROS completed. Pertinent findings stated in HPI and all others negative. Physical Exam: Vital Signs: Temp Pulse Resp BP Pulse Ox 98.5 F 67 18 150/50 100 01/22/18 11:21 01/22/18 11:21 01/22/18 14:19 01/22/18 11:21 01/22/18 11:21 General: Alert and recumbent in bed, NAD. HEENT: Head is normocephalic and atraumatic. PERRL, EOMI. Moist mucus membranes. Neck: Supple, symmetric. CV: Radial and pedal pulses equal. Lungs: Breathing is nonlabored and lungs are clear. Abdomen: The abdomen is soft, nontender and nondistended. Neuro: Alert and oriented. CN II-XII intact. Speech is clear. Upper extremity strength: Right upper extremity 5/5, left upper extremity exam limited secondary to pain and left shoulder ROM, type cutter 5/5, biceps and triceps 5/5. Lower extremity strength bilaterally: Quadriceps 4/5, Hamstrings 3/5, Hip flexors 3/5, Anterior tibialis 5/5, EHL 5/5, gastroc 5/5. Sensation diminished bilateral feet proximally to knees. Patellar and achilles reflexes absent bilaterally. Clonus and hoffmans negative. Imagin. MRI lumbar spine on 01/21/18 shows severe stenosis with cord compression T10- 11, moderate stenosis L2-3, multilevel degenerative disc disease. Assessment and Plan: This patient presents with recent fall and progressive lower extremity weakness. She has proximal lower extremity weakness bilaterally on exam. MRI of the lumbar spine was reviewed showing severe stenosis at T10- 11. We discussed treatment with thoracic decompressive laminectomy T10-11 in order to relieve the cord compression. She is not interested in surgery at this time and would like to first try physical therapy. I also discussed with her that the weakness is unlikely to improve with therapy alone. She expressed understanding. This case and plan was discussed with Dr. Calixto and Rachel Medellin, FABI.
[2018-01-22] MEDS: Heparin VIAL(*) 5000 UNITS/ML VIAL (FIVE THOUSAND) SUBCUT SCH ×2 (14:19→21:23)
--- NOTE | 2018-01-22 15:32 | PN ---
Subjective Date of Service: 01/22/18 Interval History: Patient continues to c/o left shoulder pain- improved with pain medications. continues to have left leg weakness, increased weakness and pain with standing. denies fever or chills , denies chest pain or shortness of breath. denies abd pain n/v/d. Family History: Unchanged from Admission - cad htn dm Social History: Unchanged from Admission - no cig no etoh walks with a walker lives alone Past Medical History: Unchanged from Admission - as above Objective Active Medications: Acetaminophen (Tylenol Tab*) 650 mg PO Q4H PRN PRN Reason: FEVER/PAIN Last Admin: 01/21/18 09:58 Dose: 650 mg Aspirin (Aspirin Ec Tab*) 81 mg PO DAILY [facility] Last Admin: 01/22/18 09:18 Dose: 81 mg Atorvastatin Calcium (Lipitor*) 10 mg PO BEDTIME [facility] Last Admin: 01/21/18 19:54 Dose: Not Given Calcium/Vitamin D (Oscal D Tab 250/125*) 1 tab PO BID [facility] Last Admin: 01/22/18 09:18 Dose: 1 tab Diltiazem HCl (Cardizem Cd Cap*) 180 mg PO DAILY [facility] Last Admin: 01/22/18 09:17 Dose: 180 mg Docusate Sodium (Colace Cap*) 100 mg PO DAILY [facility] Last Admin: 01/22/18 09:18 Dose: 100 mg Ferrous Sulfate (Ferrous Sulfate Tab*) 325 mg PO DAILY [facility] Last Admin: 01/22/18 09:16 Dose: 325 mg Heparin Sodium (Porcine) (Heparin Vial(*)) 5,000 units SUBCUT Q8HR [facility] Last Admin: 01/22/18 14:19 Dose: 5,000 units Hydralazine HCl (Apresoline Tab*) 10 mg PO TID PRN PRN Reason: BLOOD PRESSURE Latanoprost (Xalatan 0.005%*) 1 drop BOTH EYES BEDTIME [facility]; Protocol Last Admin: 01/21/18 22:55 Dose: 1 drop Lisinopril (Prinivil Tab*) 10 mg PO DAILY [facility] Last Admin: 01/22/18 09:18 Dose: 10 mg Magnesium Hydroxide (Milk Of Magnesia Liq*) 30 ml PO Q4H PRN PRN Reason: CONSTIPATION Last Admin: 01/22/18 11:21 Dose: 30 ml Multivitamins/Minerals (Theragran/Minerals Tab*) 1 tab PO DAILY [facility] Last Admin: 01/22/18 09:16 Dose: 1 tab Nitroglycerin (Nitroglycerin Tab 0.4 Mg*) 0.4 mg SL Q5M PRN PRN Reason: PAIN - CHEST Non-Formulary Medication (Cod Liver Oil [Cod Liver Oil]) 1 cap PO DAILY [facility] Last Admin: 01/22/18 09:20 Dose: Not Given Non-Formulary Medication (Cranberry [Cranberry]) 8,400 mg PO DAILY [facility] Last Admin: 01/22/18 09:21 Dose: Not Given Non-Formulary Medication (Vitamin A Palmitate [Vitamin A]) 10,000 unit PO DAILY [facility] Last Admin: 01/22/18 09:21 Dose: Not Given Omeprazole (Prilosec Cap*) 20 mg PO BID AC [facility] Last Admin: 01/22/18 09:18 Dose: 20 mg Oxycodone/Acetaminophen (Percocet 5/325 Tab*) 1 tab PO Q4H PRN PRN Reason: PAIN Last Admin: 01/21/18 22:55 Dose: 1 tab Oxycodone/Acetaminophen (Percocet 5/325 Tab*) 2 tab PO Q4H PRN PRN Reason: PAIN Last Admin: 01/22/18 14:19 Dose: 2 tab Polyethylene Glycol/Electrolytes (Miralax*) 17 gm PO DAILY [facility] Last Admin: 01/22/18 09:21 Dose: Not Given Potassium Chloride (Klor Con Er Tab*) 10 meq PO DAILY [facility] Last Admin: 01/22/18 09:16 Dose: 10 meq Senna (Senokot Tab*) 1 tab PO DAILY [facility] Last Admin: 01/22/18 09:18 Dose: 1 tab Triamcinolone Acetonide (Triamcinolone 0.025% Oint *) 1 applic TOPICAL BID [facility] Last Admin: 01/22/18 09:21 Dose: Not Given Valacyclovir HCl (Valtrex 500 Mg (*)) 500 mg PO BID [facility]; Protocol Last Admin: 01/22/18 09:17 Dose: 500 mg Vital Signs - 8 hr 01/22/18 01/22/18 01/22/18 08:00 09:21 09:46 Temperature Pulse Rate Respiratory 16 18 16 Rate Blood Pressure (mmHg) O2 Sat by Pulse Oximetry 01/22/18 01/22/18 01/22/18 11:21 13:18 14:19 Temperature 98.5 F Pulse Rate 67 Respiratory 20 16 18 Rate Blood Pressure 150/50 (mmHg) O2 Sat by Pulse 100 Oximetry Oxygen Devices in Use Now: None Eyes: No Scleral Icterus Ears/Nose/Mouth/Throat: Clear Oropharnyx, Mucous Membranes Moist Neck: NL Appearance and Movements; NL JVP, Trachea Midline Respiratory: Symmetrical Chest Expansion and Respiratory Effort Cardiovascular: NL Sounds; No Murmurs; No JVD, No Edema Abdominal: NL Sounds; No Tenderness; No Distention Extremities: No Clubbing, Cyanosis, - - mild lower ext edema, pedal pulses +2 , left leg with decreased motor function Skin: No Rash or Ulcers Neurological: Alert and Oriented x 3 Nutrition: Taking PO's Result Diagrams: 01/21/18 07:32 01/19/18 21:20 Additional Lab and Data: Lab Results 01/19/18 Range/Units 21:20 WBC 8.7 (3.5-10.8) 10^3/ul RBC 4.06 (4.00-5.40) 10^6/ul Hgb 12.8 (12.0-16.0) g/dl Hct 38 (35-47) % MCV 94 (80-97) fL MCH 31 (27-31) pg MCHC 33 (31-36) g/dl RDW 14 (10.5-15) % Plt Count 231 (150-450) 10^3/ul MPV 7.5 (7.4-10.4) um3 Neut % (Auto) 68.7 (38-83) % Lymph % (Auto) 21.5 L (25-47) % [place] % (Auto) 6.0 (0-7) % Eos % (Auto) 3.1 (0-6) % Baso % (Auto) 0.7 (0-2) % Absolute Neuts (auto) 6.0 (1.5-7.7) 10^3/ul Absolute Lymphs (auto) 1.9 (1.0-4.8) 10^3/ul Absolute Monos (auto) 0.5 (0-0.8) 10^3/ul Absolute Eos (auto) 0.3 (0-0.6) 10^3/ul Absolute Basos (auto) 0.1 (0-0.2) 10^3/ul Absolute Nucleated RBC 0 10^3/ul Nucleated RBC % 0.2 Microbiology and Other Data: Microbiology 01/20/18 02:35 Urine Culture - Final Urine No Growth (<1,000 CFU/mL) EKG Data: ns no acute st t changes seen Assess/Plan/Problems-Billing Assessment: this is a 82 yr aa female with hx of morbid obesity and other medical problems presented to er with unable to stand or walk due to lle weakness. pt has this problem for two months ago but has been progressively worsening. intial head ct is neg ---> le x rays and pelvic ct ordered pending her wbc on admission is 12.2 ua pending - Patient Problems (1) Weakness of left lower extremity Current Visit: Yes Status: Acute Code(s): R29.898 - OTH SYMPTOMS AND SIGNS INVOLVING THE MUSCULOSKELETAL SYSTEM SNOMED Code(s): 320548609 Comment: x rays and lle and ct of pelvis- No fracture PT - recommending STR at discharge CT abd/pelvis- Severe degenerative disc space narrowing at L2/L3. Grade 1 anterolisthesis of L4 on L5. No acute fracture. - i suspect this may be contributing to her left leg weakness and numbness - consulted neurology - L-spine MRI - L2-L3 , L4-5 disc disease, moderate to severe spinal stenosis; spinal stenosis at T10-T11 with broad-based protrusion and moderate degree of spinal stenosis and increased signal in the thoracic spinal cord. This may represent myelomalacia at this level. Neurosurgery consulted - have recommended surgery- patient reports that she does not want surgery and only wants PT at this time. (2) CAD (coronary artery disease) Current Visit: Yes Status: Acute Code(s): I25.10 - ATHSCL HEART DISEASE OF [place] CORONARY ARTERY W/O ANG PCTRS SNOMED Code(s): 95441034 Comment: stable continue to monitor on tele -continue ditilazem, ASA and statin (3) Chronic anemia Current Visit: Yes Status: Acute Code(s): D64.9 - ANEMIA, UNSPECIFIED SNOMED Code(s): 224623568 Comment: stable HGB 11.7 (4) Diabetes mellitus Current Visit: Yes Status: Acute Code(s): E11.9 - TYPE 2 DIABETES MELLITUS WITHOUT COMPLICATIONS SNOMED Code(s): 70330158 Comment: Not on home medications at this time A1C - pending (5) HTN (hypertension) Current Visit: Yes Status: Acute Code(s): I10 - ESSENTIAL (PRIMARY) HYPERTENSION SNOMED Code(s): 99272315 Comment: SBP stable today 150 -continue all her home htn meds - prn hydralazine for SBP greater than 180 (6) Left shoulder pain Current Visit: Yes Status: Acute Code(s): M25.512 - PAIN IN LEFT SHOULDER SNOMED Code(s): 31828480 Comment: pt has been eval by ortho outpt pt ordered for am does not want mri ct arthorscopy if further eval needed - with continue with supportive care (7) DVT prophylaxis Current Visit: Yes Status: Acute Code(s): XFV0649 - SNOMED Code(s): 708455483 Comment: heparin subq (8) Full code status Current Visit: No Status: Acute Priority: High Onset Date: 06/30/14 Code (s): Z78.9 - OTHER SPECIFIED HEALTH STATUS SNOMED Code(s): 582636311 Status and Disposition: inpatient - weakness will need str at discharge- has a bed available at [facility]
[2018-01-22] MEDS: Atorvastatin* 10 MG TAB PO SCH (21:26)
[2018-01-22] MEDS: Latanoprost 0.005%* 2.5 ml BTL BOTH EYES SCH (22:56)
[2018-01-23] MEDS: Magnesium Hydroxide LIQ* 30 ML UDC PO PRN (01:36)
--- NOTE | 2018-01-23 03:03 | PN ---
NEUROLOGY PROGRESS NOTE: DATE OF SERVICE: 01/22/18 REASON FOR NEUROLOGY EVALUATION: Lower extremity weakness. SUBJECTIVE: The patient is resting comfortably. She stated that her weakness persist. She has not noticed any changes with the left lower extremity weakness. She continues to have mild weakness on the right lower extremity with significant weakness on the left lower extremity. 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 She has now worked with physical therapy. Unfortunately, she has her daughter who is in the neighboring bed due to similar problems. I reviewed the neurosurgical evaluation. The patient is declining any surgical intervention. MEDICATIONS: List has not changed from yesterday. REVIEW OF SYSTEMS: She denied any chest pain, shortness of breath or palpitation. PHYSICAL EXAMINATION: Vitals: Temperature 98.5, pulse rate of 67, respiratory rate of 20, oxygen saturation 100%, blood pressure of 150/50. General: Well- nourished, well-developed, obese female, in no acute distress. Extremities: No hammertoes or high arches. Neurological Examination: Mental status awake and alert, oriented to person, place, time, general circumstance. No asphasia or dysarthria. Pupils are equal, round, and reactive to light. Extraocular muscles are intact. No facial asymmetry. Tongue is symmetrical with midline with no fasciculation. Upper extremities: Normal strength except that she has restricted range of motion in the left shoulder. Lower extremities: She has hip flexion 4/3+, abduction 4/3+, knee flexion 5-/4+, extension 5-/4+. Ankle dorsiflexion 5-/4 and plantar flexion 5-/4. Great toe extension 5-/3. Reflexes : Trace throughout and absent at the ankles bilaterally. Sensation is diminished to light touch in the medial and distal leg on the left. There is also distal to proximal sensory gradient bilaterally up demarcated at the knees bilaterally. DIAGNOSTIC STUDIES/LAB DATA: MRI of the lumbar spine was read by agrees with the finding of a T10-T11 broad-based protrusion and moderate degree of spinal stenosis and increased signal in the thoracic spinal cord. ASSESSMENT AND PLAN: Mrs. Neris Perdomo is an 82-year-old female with a history of arthritis, who uses her walker at baseline, but has progressive lower extremity weakness that has worsened over the last few days. The patient has significant weakness in left lower extremity. She was found to have thoracic spondylosis with cord compression and signalling in the spinal cord. The patient is declining any surgical intervention. She is aware of the risk of becoming paraparetic and eventually paraplegic related to this lesion. She is also aware that she will be wheelchair bound for the remaining rest of her life. The patient verbalized understanding and agreed to discuss this case further with Neurosurgery. The patient also has multilevel lumbosacral disease as well as diabetic polyneuropathy. I will recommend physical therapy. We discussed fall precautions. Defer further neurosurgical recommendation to the specialist. I will sign off, but please contact me for any questions or concerns. [id number]/[facility] #: [id number] LESLIE
[2018-01-23] MEDS: oxyCODONE/Acetamin 5/325 MG* TAB PO PRN ×3 (04:22→13:33)
[2018-01-23] MEDS: Heparin VIAL(*) 5000 UNITS/ML VIAL (FIVE THOUSAND) SUBCUT SCH (04:52)
[2018-01-23] MEDS: Omeprazole CAP* 20 MG PO SCH (08:24)
[2018-01-23] MEDS: Ferrous Sulfate TAB* 325 MG PO SCH (10:11)
[2018-01-23] MEDS: Aspirin EC TAB* 81 MG TAB.EC PO SCH (10:11)
[2018-01-23] MEDS: Calcium/Vitamin D TAB 250/125* TAB PO SCH (10:11)
[2018-01-23] MEDS: Multivitamins/Minerals TAB PO SCH (10:11)
[2018-01-23] MEDS: Docusate CAP* 100 MG PO SCH (10:12)
[2018-01-23] MEDS: Lisinopril TAB* 10 MG PO SCH (10:12)
[2018-01-23] MEDS: Senna TAB PO SCH (10:12)
[2018-01-23] MEDS: Potassium Chlor TAB* 10 MEQ TAB.ER PO SCH (10:12)
[2018-01-23] MEDS: Diltiazem CD CAP* 180 MG PO SCH (10:12)
[2018-01-23] MEDS: ValACYclovir (*) 500 MG TAB PO SCH (10:14)
[2018-01-23] MEDS: Polyethylene Glycol 3350* 17 GM PACKET PO SCH (10:21)
[2018-01-23] MEDS: CRANBERRY 8400 MG PO SCH (10:23)
[2018-01-23] MEDS: COD LIVER OIL PO SCH (10:23)
[2018-01-23] MEDS: VITAMIN A PALMITATE 10000 UNIT PO SCH (10:24)
[2018-01-23] MEDS: Triamcinolone 0.025% OINT * 15 GM TUBE TOPICAL SCH (10:59)
[2018-01-23 12:30] VITALS: BP 128/98
--- NOTE | 2018-01-23 12:43 | DS ---
AMENDED REPORT NOW INCLUDES DESIGNATED COSIGNER CC: BLACK Pompa* DATE OF ADMISSION: 01/20/2018. DATE OF DISCHARGE: 01/23/2018. PRIMARY CARE PHYSICIAN: BLACK Pompa. MY ATTENDING PHYSICIAN WHILE IN THE HOSPITAL: Dr. Herman Burrell * (dictated by BLACK Jiménez). PRIMARY DISCHARGE DIAGNOSES: 1. Multilevel spinal stenosis. 2. 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 3. Bilateral lower extremity weakness and numbness. SECONDARY DISCHARGE DIAGNOSES: 1. Obstructive sleep apnea. 2. Morbid obesity. 3. Hypertension. 4. Coronary artery disease. 5. Diabetes mellitus type 2, diet controlled. 6. Diabetic peripheral neuropathy. 7. Chronic left shoulder pain. 8. History of provoked DVT. 9. Osteopenia. 10. History of diverticulitis, status post colectomy. STUDIES DONE WHILE IN THE HOSPITAL: 1. Brain CT from 01/19/2018: Read as: No acute findings. 2. Abdomen and pelvis CT from 01/20/2018: Read as: No acute findings. Small umbilical hernia, slightly larger than on prior study, containing two short segments of small bowel. No bowel obstruction or evidence of Strangulation. Punctate nonobstructing left renal calculi. No hydronephrosis. Diverticulosis coli. No evidence of diverticulitis. Stable right renal cyst. Other cortical renal cyst, seen on prior study, cannot be identified today due to of IV contrast. 3. Femur x-ray from 01/20/2018: Read as: No evidence for fracture. 4. Ankle x-ray from 01/20/2018: Read as: No evidence for fracture. 5. Lower extremity x-ray from 01/20/2018: Read as: No evidence for fracture. 6. Lumbar spine MRI from 01/21/2018: Read as: Multilevel degenerative disk disease. At L4-5, grade 1 spondylolisthesis with broad-based protrusion and facet hypertrophy results in moderate degree of spinal stenosis. At L2-3, spondylitic ridge with broad-based protrusion and facet hypertrophy results in moderate to severe spinal stenosis. There is extension into the foramina bilaterally with bilateral foraminal stenosis. There is spinal stenosis at T10- 11 with broad-based protrusion and moderate degree of spinal stenosis and increased signal in the thoracic spinal cord. This may represent myelomalacia at this level. MEDICATIONS AT DISCHARGE: 1. Lisinopril 10 mg p.o. daily. 2. Travatan 0.004% one drop both eyes at bedtime. 3. Cod liver oil one cap p.o. daily. 4. Omeprazole 20 mg p.o. b.i.d. 5. Valacyclovir 500 mg p.o. b.i.d. 6. Theragran/minerals one tab p.o. daily. 7. Ferrous Sulfate 325 mg p.o. daily. 8. Docusate 100 mg p.o. daily. 9. Potassium Chloride 10 mEq p.o. daily. 10. Diltiazem 180 mg p.o. daily. 11. Vitamin A 10,000 units p.o. daily. 12. Calcium Carbonate with vitamin D 600/800 one tab p.o. b.i.d. 13. Aspirin 81 mg p.o. daily. 14. Triamcinolone one application topical b.i.d. 15. Nitroglycerin 0.4 mg sublingual q.5 minutes as needed. 16. Prolia 60 mg subcutaneous q.6 months. 17. Cranberry 8,400 mg p.o. daily. 18. Polyethylene Glycol 17 gm p.o. daily. 19. Senna one tab p.o. daily. 20. Gabapentin 100 mg p.o. t.i.d. 21. Hydralazine 5 mg p.o. t.i.d. 22. Magnesium Hydroxide 30 ml p.o. q.4 hours as needed. 23. Oxycodone one tab p.o. q.4 hours as needed. HOSPITAL COURSE: This is a brief summary the patient's presentation. For more details, please see the history and physical from Dr. Jailene Mitchell on 01/20/2018. In brief, the patient is an 82-year-old female with a past medical history significant for the above who presented to the emergency department with progressive worsening in her ability to ambulate with lower extremity numbness and weakness, being unable to stand on the day of her admission. The patient was admitted to the hospital and had a CT as above showing spinal pathology. The patient had no other significant abnormalities in her laboratory data. She had a normal B12 and a slightly elevated TSH. The patient had no urinary tract infection. The patient initially was unable to get a lumbar spine MRI due to severe claustrophobia, but this was ordered on 01/21/2018 due to concern for severe weakness in the bilateral lower extremities. Lumbar spine MRI was read as above. The patient was hypertensive while in the hospital and was initially on Hydralazine prn which was changed to scheduled for hypertension. The patient was seen in consultation by Dr. Lenora Mccarty of Neurology. Her weakness was related to her thoracic cord, myelomalacia. The patient's studies for secondary causes of neuropathy were negative. The patient's hemoglobin A1c was 5.6. Due to the patient's diabetes and at the recommendation of Neurosurgeon, she was not started on steroids. The patient was seen in consultation by BLACK Crowder of Neurosurgery who recommended that for the patient's myelopathy that she get surgery for a laminectomy at T10-11; however, the patient declined surgery on numerous occasions and would like to try physical therapy first. It was discussed with her that this was unlikely to improve her weakness and she stated understanding. This was reconfirmed on several occasions with her. The patient was stable and amenable for discharge to [facility] on 01/23/2018. PHYSICAL EXAMINATION AT DISCHARGE: General: The patient is an 82-year-old female who appears stated age and is sitting comfortably in the bed in no acute distress. HEENT: Head normocephalic, atraumatic. Sclerae anicteric. No conjunctival injection. Nasal mucosa moist. Oral mucosa moist. No pharyngeal erythema, discharge or exudate. Neck: Supple, nontender. No lymphadenopathy. No carotid bruits auscultated. No JVD. Cardiac: Regular rate and rhythm. No clicks, murmurs, gallops, or rubs. Pulses are 2+ in the bilateral dorsalis pedis, posterior tibialis, and radial areas. Respiratory: Clear to auscultation bilaterally. No wheezes, rales, or rhonchi. Good air exchange bilaterally. Abdomen: Soft, slight tenderness to palpation in the left lower quadrant. No hepatosplenomegaly. No abdominal bruits auscultated. No hepatojugular reflux. Genitourinary: No suprapubic or CVA tenderness. Skin: Clean, dry, intact. No rash. Neuro: Cranial nerves II through XII intact. Strength: Preserved in bilateral upper extremities. Sensation to light touch preserved in the upper extremities. Diminished sensation to light touch in the bilateral feet symmetrically. Weakness in the bilateral lower extremities symmetrically, worse with plantar and dorsiflexion of the feet. Strength preserved 4+/5 with adduction of the legs, diminished with abduction. Reflexes 1+ in bilateral Achilles areas, unresponsive in the bilateral patellar areas. Babinski is nonreactive. Cerebellar testing performed without difficulty. Gait not tested. DISCHARGE PLAN: The patient will be discharged to [facility] for rehab to help improve her strength and walking ability. It was discussed with her numerous times that this would likely not be sufficient to treat her myelopathy and that she would likely need surgery or there is a chance she could be wheelchair bound for the rest of her life. The patient stated understanding of this, but is opposed to surgery and would like physical therapy at this time. The patient's diabetes is diet controlled and this can be continued. The patient was hypertensive while in the hospital and started on Hydralazine three times daily. The patient should have her blood pressure checked at least daily to assess improvement on this medication. The patient should follow-up with Dr. Calixto in four to six weeks for continued evaluation of her spinal pathology. Patient should follow up with ORthopedics if she would be interested in intervention upon her shoulder. The patient should return to the hospital for alarming symptoms such as chest pain, shortness of breath, loss of bowel or bladder control, uncontrolled pain, or other alarming symptoms. The patient was started on Gabapentin for her lower extremity pain as well. DIET: The patient should have a heart-healthy, consistent carbohydrate diet. ACTIVITY: Engage in activities as tolerated. BLACK JIMÉNEZ [id number]/[facility] #: [id number] LESLIE
[2018-01-23] MEDS ORDERED: hydrALAZINE TAB* 10 MG PO SCH (14:00)
== END 2018-01-23 13:45 | DRG 92 ==
LOC: ED 17:33 → MED 01-20 00:20 → OBSVTOIN 01-20 16:00 → MED 01-21 22:20
PROVIDERS: ADMIT Internal Medicine; ATTEND Internal Medicine
DX: G95.89 Other specified diseases of spinal cord (principal); M47.14 Other spondylosis with myelopathy, thoracic region; I45.2 Bifascicular block; Z68.41 Body mass index [BMI] 40.0-44.9, adult; M48.04 Spinal stenosis, thoracic region; E03.9 Hypothyroidism, unspecified; I25.10 Atherosclerotic heart disease of native coronary artery without angina pectoris; E78.00 Pure hypercholesterolemia, unspecified; I10 Essential (primary) hypertension; E11.51 Type 2 diabetes mellitus with diabetic peripheral angiopathy without gangrene; J45.909 Unspecified asthma, uncomplicated; K21.9 Gastro-esophageal reflux disease without esophagitis; K57.90 Diverticulosis of intestine, part unspecified, without perforation or abscess without bleeding; E11.39 Type 2 diabetes mellitus with other diabetic ophthalmic complication; H42 Glaucoma in diseases classified elsewhere; F40.240 Claustrophobia; E66.01 Morbid (severe) obesity due to excess calories; G47.33 Obstructive sleep apnea (adult) (pediatric); E11.42 Type 2 diabetes mellitus with diabetic polyneuropathy; G89.29 Other chronic pain; M85.80 Other specified disorders of bone density and structure, unspecified site; Z96.653 Presence of artificial knee joint, bilateral; M81.0 Age-related osteoporosis without current pathological fracture; D72.829 Elevated white blood cell count, unspecified; D64.9 Anemia, unspecified; M19.012 Primary osteoarthritis, left shoulder; M51.36 Other intervertebral disc degeneration, lumbar region; M48.061 Spinal stenosis, lumbar region without neurogenic claudication; M43.16 Spondylolisthesis, lumbar region; M51.26 Other intervertebral disc displacement, lumbar region; Z79.82 Long term (current) use of aspirin; Z98.49 Cataract extraction status, unspecified eye; Z95.5 Presence of coronary angioplasty implant and graft; Z90.49 Acquired absence of other specified parts of digestive tract; Z80.9 Family history of malignant neoplasm, unspecified; Z79.52 Long term (current) use of systemic steroids; Z88.0 Allergy status to penicillin; Z91.09 Other allergy status, other than to drugs and biological substances; I25.2 Old myocardial infarction; Z86.718 Personal history of other venous thrombosis and embolism; Z90.710 Acquired absence of both cervix and uterus; Z83.3 Family history of diabetes mellitus; Z82.49 Family history of ischemic heart disease and other diseases of the circulatory system; Z79.84 Long term (current) use of oral hypoglycemic drugs
CPT/HCPCS: 36415; 70450; 72148; 74176; 80053; 80061; 81003; 81015; 82550; 82607; 83036; 83605; 83735; 84443; 84484; 85025; 85652; 87086; 93005; 99284; A9270-GY; G8978-GP-CK; G8979-GP-CI; J1644

== ENCOUNTER 2018-03-12 13:47 | Observation (INO) | payer MEDICARE ==
[~2018-03-12 13:47] MED LIST changes: +Buffered Lidocaine 0.9% SYRIN* 5 ML/SYR SYRINGE INTRADERM ONE; +Lactated Ringers 1000 ML Bag* 1,000 ML IV SCH; -NS 0.9% 1000 ML* 1,000 ML IV ONE; -Nitrofurantoin Macrocrystals* 100 MG CAP PO ONE; -Sulfamethox/Trimethoprim DS 800/160* TAB PO ONE
[2018-03-12] MEDS ORDERED: Clindamycin 900 MG/D5W BAG(*) 900 MG/50 ML BAG IVPB ONE (14:18)
[2018-03-12] MEDS ORDERED: Thrombin 5,000 UNITS* 1 APPLIC KIT - topical use - TOPICAL ONE (14:23)
[2018-03-12] MEDS ORDERED: Lidocain 1% EPI 1:100,000 * 30 ML MDV ONE (14:23)
[2018-03-12] MEDS ORDERED: Bacitracin IV* 50,000 UNITS INJ ONE (14:24)
[2018-03-12] MEDS ORDERED: fentaNYL* 50 MCG/ML 2 ML VIAL (100 MCG VIAL) ONE ×2 (15:17→17:49)
[2018-03-12] MEDS ORDERED: Midazolam* 1 MG/ML 2 ML VIAL (2 MG) ONE (15:17)
[2018-03-12] MEDS ORDERED: Famotidine IV* 10 MG/ML 2 ML (20 mg) ONE (15:45)
[2018-03-12] MEDS ORDERED: Dexamethasone IV* 4 MG/ML 1 ML (4 MG) ONE (15:45)
[2018-03-12] MEDS ORDERED: Cisatracurium* 2 MG/ML MDV 5 ML ONE (15:45)
[2018-03-12] MEDS ORDERED: Propofol* 10 MG/ML 20 ML BTL ONE (15:45)
[2018-03-12] MEDS ORDERED: Succinylcholine* 20 MG/ML 10 ML VIAL ONE (15:45)
[2018-03-12] MEDS ORDERED: diPHENhydraMINE IV* 50 MG/ML 1 ml VIAL (BENADRYL) IV PRN (16:36)
[2018-03-12] MEDS ORDERED: Acetaminophen TAB* 325 MG PO PRN ×2 (16:36→17:12)
[2018-03-12] MEDS ORDERED: Levalbuterol 0.63MG/3ML NEB* UNIT OF USE INH PRN (16:36)
[2018-03-12] MEDS ORDERED: DiMENhydriNATE IV* 50 MG/ML VIAL IV PUSH PRN (16:36)
[2018-03-12] MEDS ORDERED: PROCHLORPERAZINE INJ 5 MG/ML 2 ML VIAL IV PRN (16:36)
[2018-03-12] MEDS ORDERED: Naloxone* 0.4 MG/ML 1 ML VIAL IV PRN (16:36)
[2018-03-12] MEDS ORDERED: oxyCODONE/Acetamin 5/325 MG* TAB PO PRN (16:36)
[2018-03-12] MEDS ORDERED: Ondansetron INJ* 2 MG/ML VIAL ONE (17:03)
[2018-03-12] MEDS ORDERED: Magnesium Hydroxide LIQ* 30 ML UDC PO PRN (17:06)
[2018-03-12] MEDS ORDERED: Nitroglycerin TAB 0.4 MG* 0.4 MG TAB SL PRN (17:06)
[2018-03-12] MEDS ORDERED: Ondansetron INJ* 2 MG/ML VIAL IV PRN (17:12)
[2018-03-12] MEDS ORDERED: hydrALAZINE IV* 20 MG/ML VIAL IV SLOW PU PRN (17:30)
[2018-03-12] MEDS ORDERED: hydrALAZINE IV* 20 MG/ML VIAL ONE (17:31)
[2018-03-12] MEDS ORDERED: Dextrose 50% Syringe 50 ML* 25 GM/50 ML SYRINGE IV PUSH PRN (17:33)
[2018-03-12] MEDS: fentaNYL* 50 MCG/ML 2 ML VIAL (100 MCG VIAL) IV PRN ×3 (17:50→18:23)
[2018-03-12] MEDS ORDERED: oxyCODONE/Acetamin 5/325 MG* TAB ONE (18:05)
[2018-03-12] MEDS: Lactated Ringers 1000 ML Bag* 1,000 ML IV SCH (19:55)
--- NOTE | 2018-03-12 20:47 | CONS ---
CC: Dr. Calixto; BLACK Pompa; Dr. Carpio; Dr. Carrie Bennett, [facility] * CONSULTATION REPORT: DATE OF CONSULT: 03/12/18 TIME OF EVALUATION: 5:20 p.m. REQUESTING PHYSICIAN: Dr. Calixto. PRIMARY CARE PROVIDER: BLACK Pompa DIRECTOR OF PROGRAMMING: Dr. Carpio. REASON FOR CONSULT: Management of comorbidities in the postoperative period. HISTORY OF PRESENT ILLNESS: Ms. Perdomo is an 82-year-old lady with a past medical history of obstructive sleep apnea; morbid obesity with a BMI of 42.4; hypertension; coronary artery disease; type 2 diabetes, diet controlled; diabetic neuropathy; chronic left shoulder pain; history of provoked DVT; osteopenia; diverticulitis; multilevel spinal stenosis that was admitted from to 01/23/18 to [facility]. On the admission, the patient had presented with progressive worsening in her ability to ambulate with lower extremity numbness and weakness. She had an MRI of the lumbar spine that showed spinal stenosis at T10- T11 with broad-based protrusion and moderate degree of spinal stenosis, and increased signal in thoracic spinal cord that could represent myelomalacia. The patient was seen by Neurosurgery during that admission and the recommendation was for her to get a laminectomy at T10-11; however, the patient declined surgery and plan was for physical therapy trial first. The patient was discharged to [facility] on 01/23/18 and as per senior living records, she continued to have back pain and weakness. She was seen in followup by Neurosurgery and at that point was agreeable with laminectomy and she was admitted today and underwent a T10-T11 laminectomy with Dr. Calixto. The patient is seen and examined at the PACU and she offers no complaints at this time, but her blood pressure was elevated at 200/73, asymptomatic. PAST MEDICAL HISTORY: 1. Morbid obesity with a BMI of 42. 2. Obstructive sleep apnea. 3. Hypertension. 4. Coronary artery disease. 5. Type 2 diabetes, diet controlled. 6. Diabetic neuropathy. 7. Chronic left shoulder pain. 8. History of provoked DVT. 9. Osteopenia. 10. History of diverticulitis, status post colectomy. 11. Multilevel spinal stenosis. 12. 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 PAST SURGICAL HISTORY: 1. Status post bilateral carpal tunnel release. 2. Status post partial colectomy. 3. Status post bilateral total knee replacement. 4. Status post hysterectomy. 5. Status post cataract extraction. MEDICATION LIST: 1. Aspirin 81 mg p.o. daily. 2. Calcium carbonate 600 mg p.o. b.i.d. 3. Cod liver oil 1 capsule p.o. daily. 4. Prolia 60 mg subcutaneously q.6 months. 5. Cardizem 180 mg p.o. daily. 6. Colace 100 mg p.o. daily. 7. Ferrous sulfate 325 mg p.o. daily. 8. Gabapentin 100 mg p.o. t.i.d. 9. Hydralazine 5 mg p.o. t.i.d. 10. Lisinopril 10 mg p.o. daily. 11. Loratadine 10 mg p.o. daily. 12. Milk of magnesia 30 mL p.o. q.4 hours p.r.n. constipation. 13. Multivitamin 1 tablet p.o. daily. 14. Nitroglycerin 0.4 mg sublingual q.5 minutes p.r.n. chest pain. 15. Omeprazole 20 mg p.o. b.i.d. 16. Percocet 5/325 mg 1 tablet p.o. q.4 hours p.r.n. pain. 17. MiraLAX 17 g p.o. daily. 18. Potassium chloride 10 mEq p.o. q.a.m. 19. Senna 1 tablet p.o. daily. 20. Travoprost Z 0.004% one drop to both eyes at bedtime. 21. Triamcinolone 0.025% ointment topical b.i.d. 22. Valacyclovir 500 mg p.o. b.i.d. ALLERGIES: To PENICILLIN. FAMILY HISTORY: Mom of cancer. Dad of cancer, but also had black lung disease. One brother has history of coronary artery disease, end-stage renal disease, and bipolar disorder. SOCIAL HISTORY: There is no history of alcohol, tobacco, or drug use. Surrogate decision maker is her son, Stephen Perdomo, [phone]. REVIEW OF SYSTEMS: I am unable to obtain at this time as the patient is still recovering from anesthesia. PHYSICAL EXAM: Vital Signs: Temperature 97.0, heart rate is 75, respiratory rate is 14, oxygen saturation is 95% on OxyMask, and her blood pressure is 200/ 73 and it is now 172/82 after receiving hydralazine in the PACU. General: The patient is an elderly, morbidly obese lady, sitting up in the bed, in no acute distress. CVS: Normal S1, S2. Regular rate and rhythm. Chest: Breath sounds present bilaterally, diminished in bases. Abdomen is obese. Neuro: She is alert and oriented x3. ASSESSMENT AND PLAN: Ms. Perdomo is an 82-year-old lady with a past medical history of obstructive sleep apnea; morbid obesity with a BMI of 42; hypertension; coronary artery disease; type 2 diabetes with diabetic neuropathy ; history of provoked deep venous thrombosis; osteopenia; diverticulitis, status post colectomy, who has multilevel spinal stenosis, was diagnosed with T10-T11 myelomalacia who had initially opted for conservative treatment, but as her symptoms persisted, was admitted now for elective T10-T11 laminectomy. 1. T10-T11 laminectomy. Management will be as per Neurosurgery. 2. Hypertension. It is uncontrolled at this time. The patient received hydralazine IV and we are going to continue her Cardizem, lisinopril p.o., and we will continue to monitor her blood pressure. It may be uncontrolled at this time in the setting of pain in the immediate postop period. 3. Obstructive sleep apnea. The patient will have CPAP ordered while in the floor and we will monitor her oximetry continuously in the first 24 hours postop. 4. Type 2 diabetes. It is diet controlled. We are going to monitor her fingersticks and cover with a lispro sliding scale. 5. Coronary artery disease. Appears to be stable at this time. She will be monitored on telemetry overnight. 6. DVT prophylaxis. The patient has a history of provoked deep venous thrombosis in the past and be at high risk for deep venous thrombosis after the surgery. She will have SCDs for now and we will start pharmacological DVT prophylaxis when okay with Neurosurgery. 7. Code status is full. TIME SPENT: Approximately 45 minutes was spent with patient interview, medical records review, physical examination to complete this consultation. [id number]/[facility] #: [id number] [facility]ITAL[facility]rs[facility]
[2018-03-12] MEDS: oxyCODONE/Acetamin 5/325 MG* TAB PO PRN (22:56)
[2018-03-12] MEDS: Gabapentin CAP(*) 100 MG PO SCH (22:57)
[2018-03-12] MEDS: Insulin LISPRO* 1 UNITS UNIT SUBCUT SCH (22:59)
[2018-03-12] MEDS: Omeprazole CAP (NF) 20 MG CAP.DR PO SCH (22:59)
[2018-03-13] MEDS: hydrALAZINE TAB* 10 MG PO SCH ×4 (00:24→19:51)
[2018-03-13] MEDS: TRAVOPROST BOTH EYES SCH ×2 (00:27→22:47)
[2018-03-13] MEDS: oxyCODONE/Acetamin 5/325 MG* TAB PO PRN ×5 (03:01→23:49)
[2018-03-13] MEDS: Diltiazem CD CAP* 180 MG PO SCH (07:24)
[2018-03-13] MEDS: Docusate CAP* 100 MG PO SCH (07:24)
[2018-03-13] MEDS: Omeprazole CAP (NF) 20 MG CAP.DR PO SCH ×2 (07:24→19:49)
[2018-03-13] MEDS: Lisinopril TAB* 10 MG PO SCH (07:24)
[2018-03-13] MEDS: Gabapentin CAP(*) 100 MG PO SCH ×3 (07:25→19:50)
[2018-03-13] MEDS: Senna TAB PO SCH (07:25)
[2018-03-13] MEDS: Polyethylene Glycol 3350* 17 GM PACKET PO SCH (07:26)
[2018-03-13] MEDS: Insulin LISPRO* 1 UNITS UNIT SUBCUT SCH ×4 (08:23→22:46)
[2018-03-13] MEDS: Lactated Ringers 1000 ML Bag* 1,000 ML IV SCH (09:06)
--- NOTE | 2018-03-13 14:35 | PN ---
Subjective Date of Service: 03/13/18 Interval History: HOSPITALIST PROGRESS NOTE Patient seen and examined at bedside. Care reviewed and d/w Rosita Brito RN. She feels better today. Pain is controlled, appetite is good, denies N/V, CP, dyspnea, or palpitations. Family History: Unchanged from Admission Social History: Unchanged from Admission Past Medical History: Unchanged from Admission Objective Active Medications: Acetaminophen (Tylenol Tab*) 650 mg PO Q4H PRN PRN Reason: PAIN Dextrose (D50w Syringe 50 Ml*) 12.5 gm IV PUSH .FOR FS < 60 - SS PRN PRN Reason: FS < 60 Diltiazem HCl (Cardizem Cd Cap*) 180 mg PO [facility] Last Admin: 03/13/18 07:24 Dose: 180 mg Docusate Sodium (Colace Cap*) [facility] Last Admin: 03/13/18 07:24 Dose: 100 mg Gabapentin (Neurontin Cap(*)) 100 mg PO TID [facility] Last Admin: 03/13/18 07:25 Dose: 100 mg Hydralazine HCl (Apresoline Tab*) 5 mg PO TID [facility] Last Admin: 03/13/18 07:24 Dose: 5 mg Hydralazine HCl (Apresoline Iv*) 10 mg IV SLOW PU Q6H PRN PRN Reason: SBP>170 Last Admin: 03/12/18 17:40 Dose: 10 mg Lactated Ringer's (Lactated Ringers 1000 Ml Bag*) 1,000 mls @ 75 mls/hr IV .per rate [facility] Last Admin: 03/13/18 09:06 Dose: 75 mls/hr Insulin Human Lispro (Humalog*) 0 units [facility]BC[facility]; Protocol Last Admin: 03/13/18 12:15 Dose: 1 units Lisinopril (Prinivil Tab*) 10 mg PO [facility] Last Admin: 03/13/18 07:24 Dose: 10 mg Magnesium Hydroxide (Milk Of Magnesia Liq*) 30 ml PO Q4H PRN PRN Reason: CONSTIPATION Nitroglycerin (Nitroglycerin Tab 0.4 Mg*) 0.4 mg SL Q5M PRN PRN Reason: PAIN - CHEST Omeprazole (Prilosec Cap*) 20 mg PO BID [facility] Last Admin: 03/13/18 07:24 Dose: 20 mg Ondansetron HCl (Zofran Inj*) 4 mg IV Q6H PRN PRN Reason: NAUSEA/VOMITING Oxycodone/Acetaminophen (Percocet 5/325 Tab*) 2 tab PO Q4H PRN PRN Reason: PAIN Last Admin: 03/13/18 12:14 Dose: 2 tab Polyethylene Glycol/Electrolytes (Miralax*) 17 gm PO DAILY [facility] Last Admin: 03/13/18 07:26 Dose: 17 gm Senna (Senokot Tab*) 1 tab PO QAM [facility] Last Admin: 03/13/18 07:25 Dose: 1 tab Travoprost (Travatan Z 0.004% Opth (Nf)) 1 drop BOTH EYES BEDTIME [facility]; Protocol Last Admin: 03/13/18 00:27 Dose: Not Given Vital Signs - 8 hr 03/13/18 03/13/18 03/13/18 07:10 07:25 07:26 Temperature 98.3 F Pulse Rate 71 Respiratory 17 18 18 Rate Blood Pressure 152/67 (mmHg) O2 Sat by Pulse 100 Oximetry 03/13/18 03/13/18 03/13/18 08:00 09:29 11:34 Temperature 98.5 F Pulse Rate 155 Respiratory 18 18 16 Rate Blood Pressure 125/46 (mmHg) O2 Sat by Pulse 100 97 Oximetry 03/13/18 03/13/18 11:51 12:14 Temperature Pulse Rate 70 Respiratory 18 Rate Blood Pressure (mmHg) O2 Sat by Pulse Oximetry Appearance: Elderly morbid obese lady sitting up in bed in [facility]. Eyes: No Scleral Icterus Ears/Nose/Mouth/Throat: Mucous Membranes Moist Neck: Trachea Midline Respiratory: Symmetrical Chest Expansion and Respiratory Effort, Clear to Auscultation Cardiovascular: RRR - Normal S1 and S2 Neurological: Alert and Oriented x 3, - - Bilateral feet numbness (unchanged from admission) Assess/Plan/Problems-Billing Assessment: Mrs. 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 - Patient Problems (1) S/P laminectomy Comment: - T10-11 laminectomy - management as per Neurosurgery. (2) HTN (hypertension) Comment: - Better controlled today. - Continue Lisinopril, Diltiazem, and Hydralazine. - Continue to monitor. - D/c Telemetry. (3) Type 2 diabetes mellitus Comment: - Controlled. - Continue FS and Lispro SS. (4) CAD (coronary artery disease) Comment: - Stable - d/c Telemetry. - Resume aspirin when ok with Neurosurgery. (5) DVT prophylaxis Comment: - SCDs. - Pharmacological prophylaxis when ok with Neurosurgery. (6) DNR (do not resuscitate) Status and Disposition: Hospitalist service will continue to follow with you.
--- NOTE | 2018-03-13 15:35 | PN ---
Progress Note - Progress Note Date of Service: 03/13/18 SOAP: Subjective: []POD # 1 Patient feels better Less pain and feels legs better Moderate drain output Objective: []Moderate drain output Dressing intact Diffuse LE weakness LT > RT Assessment: []Satis post op Course Plan: []Convert to inpatient status to monitor drain output Hopefully back to [facility] Sunday
--- OUTSIDE RECORDS SUMMARY | 2018-03-13 15:38 | XMS REPORT | Continuity of Care Document ---
:1935 External Reference #:[id number] Author Name Nathaly Rodriguez Care Team Providers Name Role Phone [facility] Primary Care Physician Unavailable Payers Type Date Identification Numbers Payment Provider Subscriber Effective: Policy Number: [id number] Medicare Deion Perdomo 1987 PayID: [id number] [facility] [address] [place] [address] Effective: 2017 Policy Number: [id number] [facility] Deion Perdomo Expires: 2018 Group Number: 60% [id number] PayID: [id number] [address] [place] [address] Advance Directives Description No Information Available Problems Date Description Provider Status Onset: 04/29/2013 [...] M.D. Active Onset: 04/16/2014 Myalgia & Myositis Unspecified Norbert Kidd M.D. Active Onset: 08/13/2014 Senile osteoporosis Phillip Sheffield M.D. Active Onset: 08/13/2014 Chronic pain syndrome Phillip Sheffield M.D. Active Onset: 02/15/2015 Taking medication Phillip Sheffield M.D. Active Onset: 02/15/2015 Age-related osteoporosis without Phillip Sheffield M.D. Active current pathological fracture Onset: 08/08/2016 Difficulty breathing Kim Álvarez MD Active Onset: 09/29/2016 Obstructive sleep apnea syndrome Melony Noriega DNP, RN, Active CLAIMS ANALYST-BC Onset: 09/29/2016 Hypersomnia Melony Noriega DNP, RN, Active CLAIMS ANALYST-BC Onset: 01/20/2018 Walking disability Jailene Mitchell MD Active Onset: 01/20/2018 Morbid obesity Jailene Mitchell MD Active Onset: 01/20/2018 Type 2 diabetes mellitus Jailene Mitchell MD Active Onset: 01/20/2018 Malaise and fatigue Jailene Mitchell MD Active Onset: 01/20/2018 Type 2 diabetes mellitus with Jailene Mitchell MD Active diabetic neuropathy, unspecified Onset: 01/22/2018 Anemia Rachel Medellin NP Active Onset: 01/22/2018 Shoulder joint pain Rachel Medellin NP Active Onset: 01/22/2018 Spinal stenosis of thoracic region Rachel Medellin NP Active Onset: 01/23/2018 Spinal cord disease BLACK Goff Active Family History Date Family Member(s) Problem(s) Comments General Heart Disease General Diabetes General Cancer Father due to Cancer, Prostate () - age 92 Mother due to Cancer () - age 87 Social History Type Date Description Comments Sex Unknown Marital Status Lives With Spouse 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 Tobacco Use Start: Unknown Never Smoked Cigarettes ETOH Use Denies alcohol use Recreational Drug Use Denies Drug Use Tobacco Use Start: Unknown Patient has never smoked Smoking Status Reviewed: 02/27/18 Patient has never smoked Exercise Type/Frequency Exercises rarely Exercise Type/Frequency strengthening classes 2X a week Currently Active Patient is currently not sexually active Allergies, Adverse Reactions, Alerts Date Description Reaction Status Severity Comments 04/29/2013 Cat Dander Active 04/29/2013 Dog Dander Active 04/29/2013 Perfume Active 04/29/2013 Tar Active 05/27/2013 Cigarette Smoke Active 12/09/2014 Penicillin Active 02/06/2014 NKDA Inactive Medications Medication Date Status Form Strength Qnty SIG Indications Ordering Provider Prolia 10/15/ Active Solution 60mg/ml 60mg 60 mg sc M81.0 Zsofia 2017 q6mon [place], CLAIMS ANALYST Rollator Walker 06/04/ Active use as Krystle 2018 needed Tyler Crisostomo Vitamin A 03/30/ Active Capsules [id number] 1 daily Zsofia 2018 [place], CLAIMS ANALYST Diltiazem HCL 01/17/ Active Caps ER 180mg 90caps 1 po qd Carson Anderson ER 2017 24HR Tyler Hartley Calcium 09/13/ Active Tablets 600-800mg- 60tabs 1 by M81.0 ofi 600/Vitamin D3 2016 Unit mouth [place], twice a CLAIMS ANALYST day Prolia 09/12/ Active Solution 60mg/ml 60mg 60 mg sc M81.0 Zsofia 2016 q6mon [place], CLAIMS ANALYST Ibuprofen 08/16/ Active Tablets 800mg 60tabs 1 tab by M54.32 Zsofia 2016 mouth [place], three CLAIMS ANALYST times a day with food as needed Triamcinolone 02/27/ Active Lotion 0.025% 60ml use on R21 Zsofia Acetonide 2016 affected [place], area 2x CLAIMS ANALYST daily as needed Nitrostat 12/31/ Active Tablets 0.4mg 25tabs one sl Carson Anderson 2012 Sub q5min up Brand, to 3 M.D. doses prn, if no relief call 911 Simvastatin 12/16/ Active Tablets 20mg 90tabs 1 tablet 250.00 Chio 2008 at bed , ekaterina Mendieta M.D. Baby Aspirin 12/16/ Active Chewtabs 81mg 100uni 1 tablet 250.00 Chio 2008 ts po daily , Tyler Mendieta Lisinopril / Active Tablets 10mg 90tabs 1 po qd Chio , Tyler Mendieta Cod Liver Oil / Active Capsule 1 cap po Unknown Plus Vitamin 0000 qd A&D3 Potassium 00/ Active Tablet 10Meq One tab 250.00 Unknown [...] 09/12/ Hx Tablets 1000-800mg 90tabs 1 by [email or web address] Nadine Seaman 2016 - -Unit mouth [place], 09/21/ every day CLAIMS ANALYST 2016 Calcium 600 09/06/ Hx Tablets 600mg 180tab 1 tab by Albert0 Nadine 2015 - s mouth 2x [place], 09/12/ daily CLAIMS ANALYST 2016 Percocet 04/19/ Hx Tablets 5-325mg 80tabs 1 by [id number] Virgil 2015 - mouth Jordy, 09/06/ every 6 M.DEladio 2016 hours as needed pain Fiber 08/13/ Hx Tablets 625mg 60tabs 5 by Phillip 2014 - mouth Tyler Sheffield 10/21/ daily 2016 Duloxetine HCL 04/16/ Hx Caps DR 20mg 60caps 2 729.1 Phillip 2014 - Part together Tyler Sheffield 05/24/ by mouth 2014 day Prolia 01/14/ Hx Solution 60mg/ml 60mg 60 mg sc M81.0 Norbert 2013 - q6mon Tyler Kidd 2016 M81.0 Caltrate 01/14/2014 Hx Tablets 587-317pi-Bemg 60tabs 1 po bid 733.00 Norbert 600+D - Bernabe, 02/11/2015 Tyler Cymbalta 01/14/[address] Caceres 30mg 30caps 1 by mouth 729.1 Norbert - every day Bernabe, 04/16/2014 Tyler Ativan 06/21/2012 Hx Tablets 1mg 2tabs take one Billy - tablet one Óscar, 05/24/2014 hour prior M.DEladio to procedure. May take an additional one [...] q4h Dirk - prn pain Jordy, 04/26/2013 M.D. Coumadin 09/12/2010 Hx Tablets 2.5mg 50tabs use as Dirk - directed Jordy, 04/26/2013 M.D. Sulfamethoxa 11/01/2009 Hx Tablets 400-80mg Take two Sivanand zole/Trimeth - for first a, oprim 04/26/2013 two days Poopal, then 1/2 MD tab at bedtime. Eq 10/14/[address] 20mg 30tabs 1 qd 530.81 Sivanand Omeprazole - a, 04/26/2013 MD Ebenezer Miconazole 3 07/09/2009 Hx Suppository 200mg 3units 1 112.1 Stevanov - suppositor ic, 08/11/2009 y in Radomir, vagina for M.D. days Cipro 05/24/2009 Hx Tablets [...] days Duloxetine HCL - Hx Caps DR Part 30mg Cherry, 06/13/2016 RAY Ortiz-BC Sulfamethoxazole/Tri [...] Prolia Administered Injection Zsofia Injection, 017 [place], CLAIMS ANALYST Denosumab, 1MG Depomedrol Administered Injection Dirk Jordy, 40MG 017 M.DEladio Depomedrol Administered Injection Dirk Jordy, 40MG 017 M.DEladio Prolia Administered Injection Nurse Visit Injection, 017 C Denosumab, 1MG Prolia Administered Injection Zsofia Injection, 016 [place], CLAIMS ANALYST Denosumab, 1MG Inj, Administered Injection Carson Anderson Regadenoson, 016 Tyler Hartley 0.1 MG Technetium TC Administered Injection Carson Anderson 99M 016 Tyler Hartley Tetrofosmin, Per Unit Dose Up To 40 Millicuries Prolia Administered Injection Phillip Injection, 015 Endo MEladioDEladio Denosumab, 1MG Prolia Administered Injection Phillip Injection, 015 Endo M.D. Denosumab, 1MG Depomedrol Administered Injection Dirk Jrody, 20MG 015 MEladioDEladio Depomedrol Administered Injection Billy 80MG 015 Tyler Cantrell Prolia Administered Injection Nurse Visit Injection, 014 RH Denosumab, 1MG Depomedrol Administered Injection Krystle 80MG 014 Tyler Crisostomo Depomedrol Administered Injection Billy 80MG 014 Tyler Cantrell Inj, Administered Injection Carson D. Regadenoson, 014 Tyler Hartley 0.1 MG Technetium TC Administered Injection Carson DEladio 99M 014 Tyler Hartley Tetrofosmin, Per Unit Dose Up To 40 Millicuries Depomedrol Administered Injection Lula 80MG 014 JOSE Ferrari Depomedrol Administered Injection Krystle 80MG 013 Tyler Crisostomo Depomedrol Administered Injection Krystle 80MG 013 Tyler Crisostomo Depomedrol Administered Injection Dirk Jordy, 40MG 013 Tyler Depomedrol Administered Injection Dirk Jordy, 80MG 012 Tyler Immunizations CPT Code Status Date Vaccine Lot # [id number] Given 12/23/2008 Zoster (Zostavax) Vital Signs Date Vital Result Comment 02/27/2018 9:32am Height 60 inches 5'0" Weight 214.00 lb BP Systolic Sitting 122 mmHg BP Diastolic Sitting 70 mmHg Pain Level 5 BMI (Body Mass Index) 41.8 kg/m2 02/25/2018 9:09am Height 60 inches 5'0" Weight 217.00 lb BP Systolic 130 mmHg BP Diastolic 86 mmHg Pain Level 6 BMI (Body Mass Index) 42.4 kg/m2 01/16/2018 10:57am Height 60 inches 5'0" Weight 208.00 lb Heart Rate 72 /min BP Systolic 126 mmHg rue large cuff/sitting BP Diastolic 74 mmHg rue large cuff/sitting BP Systolic Standing 118 mmHg rue large cuff BP Diastolic Standing 74 mmHg rue large cuff BMI (Body Mass Index) 40.6 kg/m2 Ejection Fraction 68% echo. 05/01/2013 12/26/2017 9:44am Height 60 inches 5'0" Weight 220.00 lb Heart Rate 74 /min BP Systolic 136 mmHg BP Diastolic 80 mmHg Respiratory Rate 14 /min Pain Level 8 BMI (Body Mass Index) 43.0 kg/m2 10/15/2017 1:21pm Height 60 inches 5'0" Weight 197.50 lb Heart Rate 62 /min BP Systolic Sitting 130 mmHg BP Diastolic Sitting 78 mmHg Pain Level 4 O2 % BldC Oximetry 98 % BMI (Body Mass Index) 38.6 kg/m2 08/16/2017 10:55am Height 60 inches 5'0" Weight 189.00 lb BP Systolic 148 mmHg BP Diastolic 86 mmHg Respiratory Rate 17 /min Body Temperature 96.8 F Pain Level 8 BMI (Body Mass Index) 36.9 kg/m2 07/13/2017 10:21am Height 60 inches 5'0" Weight 189.00 lb with shoes Heart Rate 64 /min BP Systolic Sitting 144 mmHg Lue lrg cuff BP Diastolic Sitting 82 mmHg Lue lrg cuff BP Systolic Standing 148 mmHg Lue lrg cuff BP Diastolic Standing 86 mmHg Lue lrg cuff Respiratory Rate 15 /min BMI (Body Mass Index) 36.9 kg/m2 Ejection Fraction 68% 05/01/2013-echo 06/29/2017 10:39am Height 60 inches 5'0" Weight 187.38 lb Heart Rate 60 /min BP Systolic Standing 165 mmHg BP Diastolic Standing 89 mmHg Respiratory Rate 18 /min Pain Level 7 BMI (Body Mass Index) 36.6 kg/m2 06/04/2017 10:39am Height 60 inches 5'0" Weight 182.00 lb Heart Rate 64 /min Respiratory Rate 16 /min Body Temperature 97.3 F Pain Level 10 BMI (Body Mass Index) 35.5 kg/m2 04/23/2017 9:47am Height 60 inches 5'0" Weight 182.00 lb BP Systolic 152 mmHg BP Diastolic 86 mmHg Respiratory Rate 16 /min Body Temperature 97.6 F Pain Level 10 BMI (Body Mass Index) 35.5 kg/m2 03/30/2017 11:09am Height 60 inches 5'0" Weight 182.00 lb Heart Rate 62 /min BP Systolic Sitting 167 mmHg BP Diastolic Sitting 81 mmHg Respiratory Rate 14 /min BMI (Body Mass Index) 35.5 kg/m2 01/17/2017 11:48am Height 60 inches 5'0" Weight 175.00 lb with shoes Heart Rate 62 /min BP Systolic Sitting 152 mmHg Lue lrg cuff BP Diastolic Sitting 86 mmHg Lue lrg cuff BP Systolic Standing 158 mmHg Lue lrg cuff BP Diastolic Standing 92 mmHg Lue lrg cuff Respiratory Rate 16 /min BMI (Body Mass Index) 34.2 kg/m2 Ejection Fraction 68% 05/01/2013-echo 11/21/2016 10:33am Height 60 inches 5'0" Weight 181.00 lb w/ shoes Heart Rate 72 /min reg BP Systolic Sitting 160 mmHg Rue, lg cuff BP Diastolic Sitting 100 mmHg Rue, lg cuff Respiratory Rate 16 /min O2 % BldC Oximetry 97 % on Ra BMI (Body Mass Index) 35.3 kg/m2 09/29/2016 9:40am Height 60 inches 5'0" Weight 189.00 lb Heart Rate 70 /min BP Systolic Sitting 152 mmHg BP Diastolic Sitting 94 mmHg Respiratory Rate 20 /min O2 % BldC Oximetry 98 % room air BMI (Body Mass Index) 36.9 kg/m2 09/12/2016 9:45am Height 60 inches 5'0" Weight 188.00 lb Heart Rate 69 /min BP Systolic Sitting 139 mmHg BP Diastolic Sitting 81 mmHg Body Temperature 98.1 F Pain Level 3 BMI (Body Mass Index) 36.7 kg/m2 08/16/2016 2:24pm Height 60 inches 5'0" Weight 187.00 lb Heart Rate 66 /min BP Systolic Sitting 154 mmHg BP Diastolic Sitting 89 mmHg Body Temperature 97.2 F Pain Level 10 BMI (Body Mass Index) 36.5 kg/m2 08/08/2016 8:24am Height 60 inches 5'0" Weight 192.00 lb Heart Rate 63 /min BP Systolic Sitting 102 mmHg BP Systolic Standing 52 mmHg Respiratory Rate 16 /min Pain Level 0 O2 % BldC Oximetry 98 % BMI (Body Mass Index) 37.5 kg/m2 07/21/2016 10:35am Height 60 inches 5'0" Weight 192.50 lb with shoes Heart Rate 60 /min BP Systolic Sitting 150 mmHg Rue lrg cuff BP Diastolic Sitting 86 mmHg Rue lrg cuff BP Systolic Standing 150 mmHg Rue lrg cuff BP Diastolic Standing 82 mmHg Rue lrg cuff Respiratory Rate 17 /min BMI (Body Mass Index) 37.6 kg/m2 Ejection Fraction 68% 05/01/2013-echo 06/14/2016 8:40am Height 60 inches 5'0" Weight 190.00 lb with shoes Heart Rate 68 /min BP Systolic Sitting 150 mmHg Lue large cuff BP Diastolic Sitting 92 mmHg Lue large cuff BP Systolic Standing 150 mmHg Lue large cuff BP Diastolic Standing 88 mmHg Lue large cuff Respiratory Rate 16 /min BMI (Body Mass Index) 37.1 kg/m2 Ejection Fraction 68% echo 05/01/13 05/10/2016 11:08am Height 60 inches 5'0" Weight 196.00 lb Heart Rate 61 /min BP Systolic 159 mmHg BP Diastolic 90 mmHg Respiratory Rate 12 /min BMI (Body Mass Index) 38.3 kg/m2 05/03/2016 1:52pm Height 60 inches 5'0" Weight 196.00 lb Heart Rate 69 /min BP Systolic 157 mmHg BP Diastolic 91 mmHg Respiratory Rate 19 /min BMI (Body Mass Index) 38.3 kg/m2 02/28/2016 10:10am Weight 197.00 lb Heart Rate 67 /min BP Systolic Sitting 128 mmHg BP Diastolic Sitting 76 mmHg Pain Level 8 O2 % BldC Oximetry 96 % 12/08/2015 10:24am Height 59 inches 4'11" Weight 194.00 lb Heart Rate 72 /min BP Systolic Sitting 132 mmHg BP Diastolic Sitting 80 mmHg Respiratory Rate 14 /min Body Temperature 98.1 F Pain Level 6 BMI (Body Mass Index) 39.2 kg/m2 09/07/2015 11:29am Height 59 inches 4'11" Weight 197.38 lb Heart Rate 68 /min BP Systolic Sitting 130 mmHg BP Diastolic Sitting 80 mmHg Body Temperature 97.8 F Pain Level 7 BMI (Body Mass Index) 39.9 kg/m2 08/20/2015 8:27am Height 60 inches 5'0" Weight 199.00 lb w/ shoes Heart Rate 70 /min reg BP Systolic Sitting 106 mmHg Lue, lg cuff BP Diastolic Sitting 66 mmHg Lue, lg cuff BP Systolic Standing 108 mmHg Lue BP Diastolic Standing 66 mmHg Lue Respiratory Rate 18 /min BMI (Body Mass Index) 38.9 kg/m2 Ejection Fraction 68% as of 05/01/13 echo 07/16/2015 9:23am Height 60 inches 5'0" Weight 199.00 lb with shoes Heart Rate 76 /min BP Systolic Sitting 128 mmHg LA lrg cuff BP Diastolic Sitting 70 mmHg LA lrg cuff BP Systolic Standing 130 mmHg LA lrg cuff BP Diastolic Standing 72 mmHg LA lrg cuff Respiratory Rate 18 /min BMI (Body Mass Index) 38.9 kg/m2 Ejection Fraction 68% 05/01/13 05/03/2015 11:03am Height 60 inches 5'0" Weight 196.00 lb BMI (Body Mass Index) 38.3 kg/m2 04/19/2015 1:51pm Height 60 inches 5'0" Weight 196.00 lb Pain Level 7 BMI (Body Mass Index) 38.3 kg/m2 02/15/2015 10:40am Height 60 inches 5'0" Weight 196.38 lb Heart Rate 64 /min BP Systolic Sitting 158 mmHg BP Diastolic Sitting 80 mmHg Respiratory Rate 14 /min Pain Level 4 BMI (Body Mass Index) 38.3 kg/m2 02/12/2015 10:45am Height 60 inches 5'0" Weight 198.00 lb with shoes Heart Rate 68 /min BP Systolic Sitting 140 mmHg LA lg cuff BP Diastolic Sitting 90 mmHg LA lg cuff BP Systolic Standing 140 mmHg LA lg cuff BP Diastolic Standing 88 mmHg LA lg cuff Respiratory Rate 16 /min BMI (Body Mass Index) 38.7 kg/m2 Ejection Fraction 68% date 05/01/13 ECHO 01/11/2015 10:52am Height 60 inches 5'0" Weight 192.00 lb Pain Level 0 BMI (Body Mass Index) 37.5 kg/m2 12/28/2014 11:02am Height 60 inches 5'0" Weight 192.00 lb Body Temperature 97.9 F Pain Level 7 left hip BMI (Body Mass Index) 37.5 kg/m2 12/11/2014 3:13pm Height 60 inches 5'0" Weight 192.50 lb w/ shoes Heart Rate 64 /min BP Systolic Sitting 136 mmHg LA, lg BP Diastolic Sitting 82 mmHg LA, lg BMI (Body Mass Index) 37.6 kg/m2 12/09/2014 1:30pm Height 60 inches 5'0" Weight 208.00 lb Pain Level 8 BMI (Body Mass Index) 40.6 kg/m2 08/13/2014 9:38am Height 60 inches 5'0" Weight 208.12 lb Heart Rate 76 /min BP Systolic Sitting 122 mmHg BP Diastolic Sitting 68 mmHg Respiratory Rate 14 /min Pain Level 7 BMI (Body Mass Index) 40.6 kg/m2 06/29/2014 10:04am Height 60 inches 5'0" Weight 213.00 lb Heart Rate 71 /min BMI (Body Mass Index) 41.6 kg/m2 06/15/2014 1:41pm Height 60 inches 5'0" Weight 213.00 lb Heart Rate 71 /min BP Systolic Sitting 132 mmHg BP Diastolic Sitting 74 mmHg Pain Level 6 BMI (Body Mass Index) 41.6 kg/m2 05/27/2014 10:01am Height 60 inches 5'0" Weight 213.00 lb with shoes Heart Rate 72 /min BP Systolic Sitting 122 mmHg LA, Lg cuff BP Diastolic Sitting 76 mmHg LA, Lg cuff BP Systolic Standing 116 mmHg LA BP Diastolic Standing 76 mmHg LA Respiratory Rate 16 /min BMI (Body Mass Index) 41.6 kg/m2 04/23/2014 10:41am Height 60 inches 5'0" Weight 204.00 lb Heart Rate 74 /min BP Systolic Sitting 118 mmHg BP Diastolic Sitting 70 mmHg Pain Level 5 BMI (Body Mass Index) 39.8 kg/m2 04/16/2014 9:59am Height 60 inches 5'0" Weight 206.00 lb Heart Rate 64 /min BP Systolic Sitting 134 mmHg BP Diastolic Sitting 74 mmHg Pain Level 5 BMI (Body Mass Index) 40.2 kg/m2 04/09/2014 1:40pm Height 60 inches 5'0" Weight 208.00 lb Pain Level 5 BMI (Body Mass Index) 40.6 kg/m2 02/06/2014 2:48pm Height 60 inches 5'0" Weight 208.00 lb Heart Rate 62 /min BP Systolic Sitting 140 mmHg BP Diastolic Sitting 98 mmHg Pain Level 0 BMI (Body Mass Index) 40.6 kg/m2 01/28/2014 10:45am Height 60 inches 5'0" Weight 296.50 lb Heart Rate 60 /min BP Systolic Sitting 160 mmHg BP Diastolic Sitting 88 mmHg Pain Level 0 BMI (Body Mass Index) 57.9 kg/m2 01/14/2014 10:59am Height 60 inches 5'0" Weight 211.75 lb Heart Rate 72 /min BP Systolic Sitting 130 mmHg BP Diastolic Sitting 60 mmHg Pain Level 5 BMI (Body Mass Index) 41.4 kg/m2 12/11/2013 1:30pm Height 60 inches 5'0" Weight 213.00 lb with shoes Heart Rate 62 /min BP Systolic Sitting 154 mmHg LA, Lg cuff BP Diastolic Sitting 86 mmHg LA, Lg cuff BP Systolic Standing 138 mmHg LA BP Diastolic Standing 84 mmHg LA Respiratory Rate 16 /min BMI (Body Mass Index) 41.6 kg/m2 12/04/2013 11:02am Height 60 inches 5'0" Heart Rate 66 /min BP Systolic 148 mmHg BP Diastolic 88 mmHg 12/01/2013 8:42am Height 60 inches 5'0" Weight 211.00 lb Heart Rate 68 /min BP Systolic Sitting 140 mmHg BP Diastolic Sitting 70 mmHg Pain Level 5 BMI (Body Mass Index) 41.2 kg/m2 11/13/2013 1:12pm Height 60 inches 5'0" Weight 216.00 lb Heart Rate 64 /min BP Systolic 160 mmHg BP Diastolic 99 mmHg BMI (Body Mass Index) 42.2 kg/m2 05/27/2013 1:35pm Height 59 inches 4'11" Weight 220.00 lb with shoes Heart Rate 66 /min BP Systolic Sitting 120 mmHg Ra Lg cuff BP Diastolic Sitting 70 mmHg Ra Lg cuff BP Systolic Standing 134 mmHg Ra Lg cuff BP Diastolic Standing 80 mmHg Ra Lg cuff Respiratory Rate 17 /min BMI (Body Mass Index) 44.4 kg/m2 05/06/2013 11:49am Height 59 inches 4'11" Heart Rate 65 /min BP Systolic 185 mmHg BP Diastolic 100 mmHg 04/29/2013 1:05pm Height 59.5 inches 4'11.50" Weight 217.00 lb Heart Rate 70 /min BP Systolic Sitting 138 mmHg left arm, large cuff BP Diastolic Sitting 86 mmHg left arm, large cuff BP Systolic Standing 132 mmHg left arm, large cuff BP Diastolic Standing 82 mmHg left arm, large cuff Respiratory Rate 20 /min BMI (Body Mass Index) 43.1 kg/m2 10/03/2010 9:09am Body Temperature 98.7 F 11/01/2009 9:57am Weight 226.00 lb Heart Rate 58 /min BP Systolic Sitting 128 mmHg BP Diastolic Sitting 80 mmHg 10/22/2009 11:34am Weight 269.00 lb BP Systolic Sitting 132 mmHg BP Diastolic Sitting 82 mmHg 10/14/2009 9:24am Weight 228.00 lb Heart Rate 82 /min BP Systolic Sitting 130 mmHg BP Diastolic Sitting 70 mmHg 07/09/2009 1:11pm Weight 224.00 lb Heart Rate 80 /min BP Systolic Sitting 110 mmHg BP Diastolic Sitting 70 mmHg Body Temperature 98.4 F 05/04/2009 11:43am Height 61 inches 5'1" Weight 228.25 lb Heart Rate 60 /min BP Systolic Sitting 130 mmHg BP Diastolic Sitting 86 mmHg BMI (Body Mass Index) 43.1 kg/m2 03/22/2009 9:31am Height 61 inches 5'1" Weight 231.00 lb Heart Rate 56 /min BP Systolic Sitting 132 mmHg BP Diastolic Sitting 82 mmHg BMI (Body Mass Index) 43.6 kg/m2 01/20/2009 10:51am Height 61 inches 5'1" Weight 237.50 lb Heart Rate 58 /min BP Systolic Sitting 142 mmHg BP Diastolic Sitting 77 mmHg Body Temperature 98.4 F BMI (Body Mass Index) 44.9 kg/m2 01/08/2009 10:31am Height 61 inches 5'1" Weight 237.25 lb Heart Rate 54 /min BP Systolic Sitting 117 mmHg BP Diastolic Sitting 74 mmHg Body Temperature 98.1 F BMI (Body Mass Index) 44.8 kg/m2 12/16/2008 9:53am Height 61 inches 5'1" Weight 239.25 lb Heart Rate 70 /min BP Systolic Sitting 91 mmHg BP Diastolic Sitting 61 mmHg BMI (Body Mass Index) 45.2 kg/m2 Results Test Date Facility Test Result H/L Range Note CBC No Diff 03/05/2018 [facility] White Blood 8.3 10^3/uL N 3.5-10.[address] [place] [address] [phone] Red Blood Count 4.00 10^6/uL N 4.00-5.40 Hemoglobin 12.5 g/dL N 12.0-16.0 Hematocrit 37 % N 35-47 Mean Corpuscular Volume 93 fL N 80-97 Mean Corpuscular Hemoglobin 31 pg N 27-31 Mean Corpuscular HGB Conc 34 g/dL N 31-36 Red Cell Distribution Width 13 % N 10.5-15 Platelet Count 279 10^3/uL N 150-450 Mean Platelet Volume 7.7 fL N 7.4-10.4 Basic Metabolic Panel 03/05/2018 [facility] Sodium 137 mmol/L N 135-[address] [place] [address] [phone] Potassium 3.9 mmol/L N 3.5-5.0 Chloride 99 mmol/L Low 101-111 Co2 Carbon Dioxide 31 mmol/L N 22-32 Anion Gap 7 mmol/L N 2-11 Glucose 90 mg/dL N 70-100 Blood Urea Nitrogen 23 mg/dL N 6-24 Creatinine 1.18 mg/dL High 0.51-0.95 BUN/Creatinine Ratio 19.5 N 8-20 Calcium 10.0 mg/dL N 8.6-10.3 Egfr Non- 44.1 >60 Egfr 53.3 >60 2 Laboratory test 11/22/2017 [facility] Calcium 5.08 mg/dL N 4.65-5.[address] [place] [address] [phone] Pthi 11/22/2017 [facility] Calcium (PTH 9.8 mg/dL N 8.6-10.[address] Intact) [place] [address] [phone] PTH Intact 3.3 pmol/L N 1.3-9.3 Laboratory test 11/22/2017 [facility] Vitamin D 50.8 ng/mL High 20-[address] Total 25(Oh) [place] [address] [phone] Comp Metabolic 2017 [facility] Sodium 135 mmol/L N 133- [address] [place] [address] [phone] Potassium 4.0 mmol/L N 3.5-5.0 Chloride 99 mmol/L Low 101-111 Co2 Carbon Dioxide 27 mmol/L N 22-32 Anion Gap 9 mmol/L N 2-11 Glucose 131 mg/dL High 70-100 Blood Urea Nitrogen 45 mg/dL High 6-24 Creatinine 1.43 mg/dL High 0.51-0.95 One Over Creatinine 0.69 mg/dL N 0.51-0.95 BUN/Creatinine Ratio 31.5 High 8-20 Calcium 9.4 mg/dL N 8.6-10.3 Total Protein 7.5 g/dL N 6.4-8.9 Albumin 4.1 g/dL N 3.2-5.2 Globulin 3.4 g/dL N 2-4 Albumin/Globulin Ratio 1.2 N 1-3 Total Bilirubin 0.40 mg/dL N 0.2-1.0 Alkaline Phosphatase 55 U/L N 34-104 Alt 7 U/L N 7-52 Ast 14 U/L N 13-39 Egfr Non- 35.3 >60 Egfr 45.4 >60 3 Total Protein 24HR 2017 [facility] Urine Collection Time [address] [place] [address] [phone] Urine Total Volume 1600 mL Urine Random Total Protein 19 mg/dL Urine Total Protein/24HR 304 mg/24Hr High 0-165 Creatinine 2017 [facility] Creatinine 1.44 mg/dL High 0.51-0.[address] [place] [address] [phone] Urine Collection Time 24 Urine Total Volume 1600 mL Urine Random Creatinine 70.42 mg/dL Creatinine Clearance 54 mL/min Low 88-128 Laboratory test 03/22/2016 [facility] Vitamin D 40.0 ng/mL N 30-50 4, [address] Total 25(Oh) [place] [address] [phone] Comp Metabolic 03/22/2016 [facility] Sodium 137 mmol/L N 133- [address] [place] [address] [phone] Potassium 3.8 mmol/L N 3.5-5.0 Chloride 98 mmol/L Low 101-111 Co2 Carbon Dioxide 33 mmol/L High 22-32 Anion Gap 6 mmol/L N 2-11 Glucose 87 mg/dL N 70-100 Blood Urea Nitrogen 34 mg/dL High 6-24 Creatinine 1.60 mg/dL High 0.51-0.95 BUN/Creatinine Ratio 21.3 High 8-20 Calcium 9.9 mg/dL N 8.6-10.3 Total Protein 7.3 g/dL N 6.4-8.9 Albumin 4.0 g/dL N 3.2-5.2 Globulin 3.3 g/dL N 2-4 Albumin/Globulin Ratio 1.2 N 1-3 Total Bilirubin 0.70 mg/dL N 0.2-1.0 Alkaline Phosphatase 65 U/L N 34-104 Alt 5 U/L Low 7-52 Ast 13 U/L N 13-39 Egfr Non- 31.2 N >60 Egfr 40.1 N >60 6 Pthi 03/22/2016 [facility] Calcium (PTH Intact) 9.9 mg/dL N 8.6-10.[address] [place] [address] [phone] PTH Intact 4.2 pmol/L N 1.3-9.3 Laboratory test 03/22/2016 [facility] Vitamin D, 1,25 43 pg/mL N 18-78 [address] [place] [address] [phone] Laboratory test 12/15/2015 [facility] Vitamin D Total 38.1 ng/ mL N 30-50 [address] 25(Oh) [place] [address] [phone] Pthi 12/15/2015 [facility] Calcium (PTH 9.8 mg/dL N 8.6-10.[address] Intact) [place] [address] [phone] PTH Intact 4.3 pmol/L N 1.3-9.3 Comp Metabolic Panel 12/15/2015 [facility] Sodium 138 mmol/L N 133-[address] [place] [address] [phone] Potassium 3.9 mmol/L N 3.5-5.0 Chloride 101 mmol/L N 101-111 Co2 Carbon Dioxide 31 mmol/L N 22-32 Anion Gap 6 mmol/L N 2-11 Glucose 83 mg/dL N 70-100 Blood Urea Nitrogen 30 mg/dL High 6-24 Creatinine 1.59 mg/dL High 0.51-0.95 BUN/Creatinine Ratio 18.9 N 8-20 Calcium 9.7 mg/dL N 8.6-10.3 Total Protein 7.3 g/dL N 6.4-8.9 Albumin 4.0 g/dL N 3.2-5.2 Globulin 3.3 g/dL N 2-4 Albumin/Globulin Ratio 1.2 N 1-3 Total Bilirubin 0.50 mg/dL N 0.2-1.0 Alkaline Phosphatase 59 U/L N 34-104 Alt 8 U/L N 7-52 Ast 16 U/L N 13-39 Egfr Non- 31.4 N >60 Egfr 40.4 N >60 9 PTH, Intact 09/03/2015 [facility] Calcium (PTH 9.8 mg/dL N 8.6 -10.[address] Intact) [place] [address] [phone] PTH Intact 8.3 pmol/L N 1.3-9.3 Laboratory test 09/03/2015 [facility] Vitamin D 29.0 ng/mL Low 30-[address] Total 25(Oh) [place] [address] [phone] Vitamin D, 1,25 Dihydroxy 53 pg/mL N 18-78 10 Phosphorus 3.5 mg/dL N 2.5-5.0 Calcium Ionized 4.77 mg/dL N 4.65-5.28 CMP Panel 09/03/2015 [facility] Sodium 136 mmol/L N 133-[address] [place] [address] [phone] Potassium 3.6 mmol/L N 3.5-5.0 Chloride 101 mmol/L N 101-111 Co2 Carbon Dioxide 27 mmol/L N 22-32 Anion Gap 8 mmol/L N 2-11 Glucose 87 mg/dL N 70-100 Blood Urea Nitrogen 26 mg/dL High 6-24 Creatinine 1.31 mg/dL High 0.51-0.95 BUN/Creatinine Ratio 19.8 N 8-20 Calcium 9.9 mg/dL N 8.6-10.3 Total Protein 7.6 g/dL N 6.4-8.9 Albumin 4.3 g/dL N 3.2-5.2 Globulin 3.3 g/dL N 2-4 Albumin/Globulin Ratio 1.3 N 1-3 Total Bilirubin 0.40 mg/dL N 0.2-1.0 Alkaline Phosphatase 75 U/L N 34-104 Alt 7 U/L N 7-52 Ast 15 U/L N 13-39 Egfr Non- 39.3 N >60 Egfr 50.5 N >60 11 Hemoglobin/Hematacrit 01/18/2015 [facility] Hemoglobin 8.0 Low 12.0-16.[address] g/[place] [address] [phone] Hematocrit 25 % Low 35-47 CBC Auto Diff 05/06/2014 [facility] White Blood 7.2 10^3/uL N 4.8-10.[address] [place] [address] [phone] Red Blood Count 4.22 10^6/uL N 4.0-5.4 Hemoglobin 11.8 g/dL Low 12.0-16.0 Hematocrit 37 % N 35-47 Mean Corpuscular Volume 88 fL N 80-97 Mean Corpuscular Hemoglobin 28 pg N 27-31 Mean Corpuscular HGB Conc 32 g/dL N 31-36 Red Cell Distribution Width 17 % High 10.5-15 Platelet Count 200 10^3/uL N 150-450 Mean Platelet Volume 8 um3 N 7.4-10.4 Abs Neutrophils 4.7 10^3/uL N 1.5-7.7 Abs Lymphocytes 1.8 10^3/uL N 1.0-4.8 Abs Monocytes 0.5 10^3/uL N 0-0.8 Abs Eosinophils 0.2 10^3/uL N 0-0.6 Abs Basophils 0 10^3/uL N 0-0.2 Abs Nucleated RBC 0 10^3/uL N Granulocyte % 64.6 % N 38-83 Lymphocyte % 24.4 % Low 25-47 Monocyte % 7.4 % N 1-9 Eosinophil % 3.0 % N 0-6 Basophil % 0.6 % N 0-2 Nucleated Red Blood Cells % 0 N Comp Metabolic Panel 05/06/2014 [facility] Sodium 139 mmol/L N 133-145 [address] [place] [address] [phone] Potassium 4.1 mmol/L N 3.5-5.0 Chloride 102 mmol/L N 101-111 Co2 Carbon Dioxide 32 mmol/L N 22-32 Anion Gap 5 mmol/L N 2-11 Glucose 81 mg/dL N 70-100 Blood Urea Nitrogen 27 mg/dL High 6-24 Creatinine 1.39 mg/dL High 0.51-0.95 BUN/Creatinine Ratio 19.4 N 8-20 Calcium 9.1 mg/dL N 8.6-10.3 Total Protein 7.0 g/dL N 6.4-8.9 Albumin 4.0 g/dL N 3.2-5.2 Globulin 3.0 g/dL N 2-4 Albumin/Globulin Ratio 1.3 N 1-3 Total Bilirubin 0.50 mg/dL N 0.2-1.0 Alkaline Phosphatase 65 U/L N 34-104 Alt 6 U/L Low 7-52 Ast 15 U/L N 13-39 Egfr Non- 36.9 N >60 Egfr 47.4 N >60 12 Laboratory test 05/06/2014 [facility] C Reactive 4.35 mg/L N < 5.[address] [place] [address] [phone] Erythrocyte Sed Rate 45 mm/Hr High 0-40 Urinalysis Profile 03/09/2014 [facility] Urine Color Yellow N [address] [place] [address] [phone] Urine Appearance Cloudy N Urine Specific Minerva 1.013 N 1.010-1.030 Urine pH 8.0 N 5-9 Urine Urobilinogen Negative N Negative Urine Ketones Negative N Negative Urine Protein Negative N Negative Urine Leukocytes 2+ Abnormal Negative Urine Blood 2+ Abnormal Negative Urine Nitrite Positive Abnormal Negative Urine Bilirubin Negative N Negative Urine Glucose Negative N Negative Urine White Blood Cell 3+(>20/hpf) Abnormal Absent Urine Red Blood Cell Trace N Absent Urine Bacteria 2+ Abnormal Absent Urine Squamous Epithelial Cell Present Abnormal Absent Urine Triple Phosphate Cryst Present Abnormal Absent Urine Amorphous Crystals Present Abnormal Absent Urine Culture And 03/09/2014 [facility] Urine Culture (SEE NOTE ) [address] [place] [address] [phone] Vitamin D, 25 12/29/2013 [facility] 25-Hydroxy <4.0 ng/mL N Hydroxy [address] Vitamin D2 [place] [address] [phone] 25-Hydroxy Vitamin D3 29 ng/mL N 25-Hydroxy Vitamin D Total 29 ng/mL N 15 Protein 12/29/2013 [facility] Total 7.8 g/dL N 6.3 - Electrophoresis DRIVE Protein(Pep) 7.9 [place] [address] [phone] Albumin 3.6 g/dL N 3.4-4.7 Alpha-1 Globulin 0.3 g/dL N 0.1-0.3 Alpha-2 Globulin 1.1 g/dL Abnormal 0.6-1.0 Beta Globulin 1.1 g/dL N 0.7-1.2 Gamma Globulin 1.8 g/dL Abnormal 0.6-1.6 Albumin/Globulin Ratio 0.84 N Impression See Comment N 16 Pthi 12/29/2013 [facility] PTH Intact 14.6 pmol/L High 1.3- 9.[address] [place] [address] [phone] Calcium (PTH Intact) 9.2 mg/dL N 8.6-10.3 RBC Leukoreduced 09/22/2010 [facility] RBC Leukoreduced [id number] O <SEE NOTE> [place] [address] [phone] Patient Blood Type O POSITIVE Antibody Screen NEGATIVE Laboratory test 09/22/2010 [facility] Release Date 09/25/10 [address] [place] [address] [phone] Hemoglobin/Hemata 09/21/2010 [facility] Hemoglobin 10.0 g/dL Low 12.0-[address] 6.0 [place] [address] [phone] Hematocrit 30 % Low 35-47 Basic Metabolic Panel 09/21/2010 [facility] Sodium 138 mmol/L 135-[address] [place] [address] [phone] Potassium 3.8 mmol/L 3.5-5.0 Chloride 98 mmol/L Low 101-111 Co2 (Carbon Dioxide) 34.0 mmol/L High 22-32 Anion Gap 6.0 mmol/L 2-11 19 Glucose 107 mg/dL High 70-100 BUN 17 mg/dL 6-24 Creatinine 1.00 mg/dL 0.50-1.40 One Over Creatinine 1.00 BUN/Creatinine Ratio 17.0 8-20 Calcium 8.0 mg/dL Low 8.1-9.9 eGFR Non- 54.3 > 60 eGFR 69.9 > 60 20 Laboratory test 09/12/2010 [facility] Release Date 09/23/10 21, [address] [place] [address] [phone] Sensitivities For 09/12/2010 [facility] Ampicillin >=32 R Urine Culture [address] [place] [address] [phone] Amikacin <=2 S Ciprofloxacin >=4 R Ceftriaxone <=1 S Cefazolin <=4 S Nitrofurantoin <=16 S Gentamicin <=1 S Imipenem <=1 S Levofloxacin 4 I Trimeth-Sulfa >=320 R Ceftazidime <=1 S Tigecycline <=0.5 S Piperacillin/Tazobactam KB 30 S Urine Culture & 09/12/2010 [facility] Urine Culture ESCHERICHIA [address] [place] [address] [phone] Laboratory test 09/12/2010 [facility] Erythrocyte Sed 67 MM/HR High 0-[address] Rate 0 [place] [address] [phone] Manual 09/12/2010 [facility] Polysegmented 76 % 38- Differential [address] Neutrophil 83 [place] [address] [phone] Lymphocyte 20 % Low 25-47 Monocyte 3 % 0-13 Eosinophil 1 % 0-6 Absolute Neutrophil Count 8.2 Anisocytosis SLIGHT Stomatocytes 1+ CBC Auto Diff 09/12/2010 [facility] White Blood 10.8 CUMM 4.8 -10.[address] [place] [address] [phone] Red Cell Count 3.92 CUMM Low 4.2-5.4 Hemoglobin 11.6 g/dL Low 12.0-16.0 Hematocrit 36 % 35-47 Mean Corpuscular Volume 91 um3 79-97 Mean Corpuscular Hemoglob 29 pg 27-31 Mean Corpuscular HGB Cone 32 g/dL 32-36 Redcell Distribution WDTH 15 % 10.5-15 Platelet Count 294 CUMM 150-450 Mean Platelet Volume 7.8 um3 7.4-10.4 24 Laboratory test 09/12/2010 [facility] C Reactive 1.7 mg/dL High Less Than finding [address] Protein 0.5 [place], [place] [address] [phone] Basic Metabolic 09/12/2010 [facility] Sodium 138 mmol/L 135- [address] [place] [address] [phone] Potassium 3.6 mmol/L 3.5-5.0 Chloride 101 mmol/L 101-111 Co2 (Carbon Dioxide) 29.0 mmol/L 22-32 Anion Gap 8.0 mmol/L 2-11 25 Glucose 98 mg/dL 70-100 BUN 27 mg/dL High 6-24 Creatinine 0.87 mg/dL 0.50-1.40 One Over Creatinine 1.10 BUN/Creatinine Ratio 31.0 High 8-20 Calcium 9.5 mg/dL 8.1-9.9 eGFR Non- 63.8 > 60 eGFR 82.1 > 60 26 Type And Screen 09/12/2010 [facility] Patient Blood O POSITIVE (Pre-Adm) [address] [place] [address] [phone] Antibody Screen NEGATIVE Specimen Discard Date 09/26/10 27 RBC Leukoreduced [id number] O <SEE NOTE> 28 RBC Leukoreduced [id number] O <SEE NOTE> 29 Laboratory test 09/12/2010 [facility] PTT (Aptt) 29.6 25.15- 38.53 finding [address] [place] [address] [phone] Protime 09/12/2010 [facility] Inr 0.94 0.82-1.17 30 [address] [place] [address] [phone] Protime 11.1 SEC 10.2-14.8 31 Urinalysis W/Microscopic 09/12/2010 [facility] Ua Color YELLOW Yellow [address] [place] [address] [phone] Appearance-Urine CLOUDY Clear Specific Minerva-Ur 1.024 1.010-1.030 Esterase-Urine 3+ Abnormal Negative Nitrite NEGATIVE Negative [id number]-[id number] NEGATIVE Negative Protein-Urine 1+ Abnormal Negative PH-Urine 6.0 5-9 Blood-Urine 3+ Abnormal Negative Ketones-Urine NEGATIVE Negative Bilirubin-Ur NEGATIVE Negative Glucose-Urine NEGATIVE Negative WBC-Urine TNTC Abnormal 0-5 RBC-Urine 2-5 0-2 Epith Cells-Ur FEW None Bacteria-Urine 4+ None Lipid Profile 10/22/2009 [facility] Triglyceride 160 mg/dL 40 -200 (Trig/Chol/HDL) [address] [place] [address] [phone] Cholesterol 167 mg/dL Less Than 200 32 High Density Lipoprotein 57 mg/dL 40-60 33 Cholesterol/HDL Ratio 2.93 AVERAGE 1-4.44 Low Density Lipoprotein 78 mg/dL Less Than 100 34 Laboratory test 10/22/2009 [facility] TSH 2.82 MIU/ML 0.34- 5.60 finding [address] [place] [address] [phone] Comp Metabolic 10/22/2009 [facility] Sodium 138 mmol/L 135- 145 Panel [address] [place] [address] [phone] Potassium 4.9 mmol/L 3.5-5.0 Chloride 104 mmol/L 101-111 Co2 (Carbon Dioxide) 27.0 mmol/L 22-32 Anion Gap 7.0 mmol/L 2-11 35 Glucose 84 mg/dL 70-100 36 BUN 38 mg/dL High 6-24 Creatinine 1.40 mg/dL 0.50-1.40 One Over Creatinine 0.70 BUN/Creatinine Ratio 27.1 High 8-20 Calcium 9.5 mg/dL 8.1-9.9 37 Total Protein 8.1 GM/DL 6.2-8.1 Albumin 4.4 GM/DL 3.2-5.2 Globulin 3.7 GM/DL 2-4 Albumin/Globulin Ratio 1.2 1-3 Bilirubin Total 0.7 mg/dL 0.4-1.5 38 Alkaline Phosphatase 93 U/L 30-110 Alt (SGPT) 10 U/L Low 14-54 Ast (Sgot) 15 U/L 12-42 eGFR Non- 39.3 > 60 eGFR 47.5 > 60 39 CBC With Manual 10/22/2009 [facility] White Blood 8.3 CUMM 4.8-10.[address] [place] [address] [phone] Red Cell Count 4.52 CUMM 4.2-5.4 Hemoglobin [...] 5.1 RBC Morphology NORMAL Urinalysis W/Microscopic 07/09/2009 [facility] Ua Color YELLOW Yellow [address] [place] [address] [phone] Appearance-Urine CLEAR Clear Specific Minerva-Ur 1.017 1.010-1.030 Esterase-Urine 1+ Abnormal Negative Nitrite NEGATIVE Negative [id number]-[id number] NEGATIVE Negative Protein-Urine NEGATIVE Negative PH-Urine 6.0 5-9 Blood-Urine 2+ Abnormal Negative Ketones-Urine NEGATIVE Negative Bilirubin-Ur NEGATIVE Negative Glucose-Urine NEGATIVE Negative WBC-Urine 0-2 0-5 RBC-Urine 0-2 0-2 Epith Cells-Ur FEW None Ua Comments (SEE NOTE) 40 Urine Culture & 07/09/2009 [facility] Urine Culture NG [address] [address] [phone] Laboratory test 07/09/2009 [facility] House Hemoglobin A1c 5.8 5-7 finding Urinalysis 05/22/2009 [facility] Ua Color RED Yellow W/Microscopic [address] [place] [address] [phone] Appearance-Urine TURBID Clear Specific Minerva-Ur 1.007 Low 1.010-1.030 Esterase-Urine 3+ Abnormal Negative Nitrite POSITIVE Abnormal Negative [id number]-[id number] NEGATIVE Negative Protein-Urine 3+ Abnormal Negative PH-Urine 6.0 5-9 Blood-Urine 3+ Abnormal Negative Ketones-Urine 1+ Abnormal Negative Bilirubin-Ur SEE ICTOTEST Abnormal Negative Glucose-Urine NEGATIVE Negative WBC-Urine TNTC Abnormal 0-5 RBC-Urine 3-5 0-2 Mucus Urine SMALL None Epith Cells-Ur FEW None Bacteria-Urine 3+ None Laboratory test 05/22/2009 [facility] Ictotest-Urine NEGATIVE 42 finding [address] [place] [address] [phone] Urine Culture & 05/22/2009 [facility] Urine Culture SN1 43 [address] [facility] [place] [address] [phone] MRSA/Vre Screen 05/02/2009 [facility] MRSA/Vre Culture [facility] 44 [facility] [place] [address] [phone] CBC With Manual 05/01/2009 [facility] White Blood Count 9.0 CUMM 4.8-1 Diff [address] [facility] 0.8 [place] [address] [phone] Red Cell Count 4.47 CUMM 4.2-5.4 Hemoglobin [...] 5.9 Anisocytosis SLIGHT CMP Panel Stat 05/01/2009 [facility] Sodium 138 mmol/L 135- [address] [place] [address] [phone] Potassium 3.9 mmol/L 3.5-5.0 Chloride 101 mmol/L 101-111 Co2 (Carbon Dioxide) 29.0 mmol/L 22-32 Anion Gap 8.0 mmol/L 2-11 45 Glucose 102 mg/dL High 70-100 46 BUN 21 mg/dL 6-24 Creatinine 1.20 mg/dL 0.50-1.40 One Over Creatinine 0.80 BUN/Creatinine Ratio 17.5 8-20 Calcium 9.4 mg/dL 8.1-9.9 47 Total Protein 7.6 GM/DL 6.2-8.1 Albumin 3.8 GM/DL 3.2-5.2 Globulin 3.8 GM/DL 2-4 Albumin/Globulin Ratio 1.0 1-3 Bilirubin Total 0.6 mg/dL 0.4-1.5 48 Alkaline Phosphatase 86 U/L 30-110 Alt (SGPT) 11 U/L Low 14-54 Ast (Sgot) 21 U/L 12-42 eGFR Non- 47.1 > 60 eGFR 57.0 > 60 49 Laboratory test 05/01/2009 [facility] Troponin-I (TnI) 0.04 NG/ ML [address] [place] [address] [phone] CBC With 04/29/2009 [facility] White Blood 8.2 CUMM 4.8-10 Electronic Diff [address] Count .8 [place] [address] [phone] Red Cell Count 4.76 CUMM 4.2-5.4 Hemoglobin [...] Eosinophils 0.2 0-0.6 Abs Basophils 0 0-0.2 51 Comp Metabolic Panel 04/29/2009 [facility] Sodium 137 mmol/L 135-145 [address] [place] [address] [phone] Potassium 3.2 mmol/L Low 3.5-5.0 Chloride 98 mmol/L Low 101-111 Co2 (Carbon Dioxide) 31.0 mmol/L 22-32 Anion Gap 8.0 mmol/L 2-11 52 Glucose 91 mg/dL 70-100 53 BUN 20 mg/dL 6-24 Creatinine 1.13 mg/dL 0.50-1.40 One Over Creatinine 0.80 BUN/Creatinine Ratio 17.7 8-20 Calcium 9.5 mg/dL 8.1-9.9 54 Total Protein 6.1 GM/DL Low 6.2-8.1 Albumin 4.1 GM/DL 3.2-5.2 Globulin 2.0 GM/DL 2-4 Albumin/Globulin Ratio 2.1 1-3 Bilirubin Total 0.9 mg/dL 0.4-1.5 55 Alkaline Phosphatase 82 U/L 30-110 Alt (SGPT) 13 U/L Low 14-54 Ast (Sgot) 22 U/L 12-42 eGFR Non- 50.4 > 60 eGFR 61.0 > 60 56 Laboratory test 04/29/2009 [facility] Troponin-I (TnI) 0.02 NG/ ML [address] [place] [address] [phone] Magnesium Stat 04/29/2009 [facility] Magnesium 2.1 mg/dL 1.7- 2. [address] 6 [place] [address] [phone] Amylase Stat 04/29/2009 [facility] Amylase 52 U/L 30-[address] [place] [address] [phone] Laboratory test 04/29/2009 [facility] Lipase 25 U/L 22-[address] [place] [address] [phone] Protime Stat 04/29/2009 [facility] Inr 0.97 0.97-[address] .03 [place] [address] [phone] Protime 11.4 SEC Low 11.5-12.2 59 PTT (Aptt) 04/29/2009 [facility] PTT (Aptt) 32.5 25.15-38.53 [address] [place] [address] [phone] Laboratory 04/29/2009 [facility] D Dimer < 200 Less Than 230 test finding [address] Quantitative [place], [place] [address] [phone] BNP Evaluatr 37.0 pg/mL 0-100 Surgical 01/22/2009 [facility] Surgical [address] Pathology <SEE NOTE> [place] [address] [phone] PTT (Aptt) 01/04/2009 [facility] PTT (Aptt) 28.2 25.1 [address] 5-38 [place] [address] .53 [phone] Protime Stat 01/04/2009 [facility] Inr 0.99 0.[address] -1.1 [place] [address] 3 [phone] Protime 12.1 SEC 10.7-13.6 64 Laboratory test 01/04/2009 [facility] Troponin-I (TnI) 0.02 NG/ ML [address] [place], [place] [address] [phone] Magnesium Stat 01/04/2009 [facility] Magnesium 2.3 mg/dL 1.7- 2. [address] 6 [place], [place] [address] [phone] CMP Panel Stat 01/04/2009 [facility] Sodium 136 mmol/L 135- [address] 5 [place] [address] [phone] Potassium 3.7 mmol/L 3.5-5.0 Chloride 97 mmol/L Low 101-111 Co2 (Carbon Dioxide) 29.0 mmol/L 22-32 Anion Gap 10.0 mmol/L 2-11 66 Glucose 96 mg/dL 70-100 67 BUN 30 mg/dL High 6-24 Creatinine 1.40 mg/dL 0.50-1.40 One Over Creatinine 0.70 BUN/Creatinine Ratio 21.4 High 8-20 Calcium 8.9 mg/dL 8.1-9.9 68 Total Protein 7.4 GM/DL 6.2-8.1 Albumin 3.7 GM/DL 3.2-5.2 Globulin 3.7 GM/DL 2-4 Albumin/Globulin Ratio 1.0 1-3 Bilirubin Total 0.5 mg/dL 0.4-1.5 69 Alkaline Phosphatase 87 U/L 30-110 Alt (SGPT) 12 U/L Low 14-54 Ast (Sgot) 18 U/L 12-42 eGFR Non- 39.4 > 60 eGFR 47.7 > 60 70 CBC With 01/04/2009 [facility] White Blood 9.2 CUMM 4.8-10.8 Electronic Diff [address] [place] [address] [phone] Red Cell Count 4.44 CUMM 4.2-5.4 Hemoglobin [...] Abs Basophils 0 0-0.2 Laboratory test 01/01/2009 [facility] Hemoglobin A1c 6.4 % High Less [address] Than 6.0 [place] [address] [phone] Urine 01/01/2009 [facility] Microalbumin 40.[address] (MG/L) mg/[place] [address] [phone] Urine Creatinine 138.18 mg/dL Fortunato Alb/Creatinine Ratio 28.9 UG/MG Less Than 30 72 Lipid Profile 01/01/2009 [facility] Triglyceride 64 mg/dL 40- 200 (Trig/Chol/HDL) [address] [place] [address] [phone] Cholesterol 174 mg/dL Less Than 200 73 High Density Lipoprotein 70 mg/dL High 40-60 74 Cholesterol/HDL Ratio 2.49 AVERAGE 1-4.44 Low Density Lipoprotein 91 mg/dL Less Than 100 75 Comp Metabolic Panel 01/01/2009 [facility] Sodium 139 mmol/L 135-[address] [place] [address] [phone] Potassium 4.0 mmol/L 3.5-5.0 Chloride 102 mmol/L 101-111 Co2 (Carbon Dioxide) 28.0 mmol/L 22-32 Anion Gap 9.0 mmol/L 2-11 76 Glucose 79 mg/dL 70-100 77 BUN 21 mg/dL 6-24 Creatinine 1.20 mg/dL 0.50-1.40 One Over Creatinine 0.80 BUN/Creatinine Ratio 17.5 8-20 Calcium 9.5 mg/dL 8.1-9.9 78 Total Protein 7.6 GM/DL 6.2-8.1 Albumin 3.8 GM/DL 3.2-5.2 Globulin 3.8 GM/DL 2-4 Albumin/Globulin Ratio 1.0 1-3 Bilirubin Total 0.6 mg/dL 0.4-1.5 79 Alkaline Phosphatase 96 U/L 30-110 Alt (SGPT) 14 U/L 14-54 Ast (Sgot) 18 U/L 12-42 eGFR Non- 47.1 > 60 eGFR 57.0 > 60 80 CBC With 01/01/2009 [facility] White Blood 15.4 CUMM High 4.8- 10.8 Manual Diff [address] [place] [address] [phone] Red Cell Count 4.71 CUMM 4.2-5.4 Hemoglobin [...] Neutrophil Count 12.6 RBC Morphology NORMAL 1 AA 03/12 2 Because ethnic data is not always [...] 5 Kidney failure <15 (or dialysis) 3 Because ethnic data is not always [...] 5 Kidney failure <15 (or dialysis) 4 normal vit D level. May have Prolia injection. 5 PRN VALID 12/08/15-06/06/16 CC: DR. PALAFOX, DR. HARTLEY, DR. SILVA 6 Because ethnic data is not always [...] 5 Kidney failure <15 (or dialysis) 7 ADDITIONAL INFORMATION This test was developed and its performance characteristics determined by [facility] in a manner consistent with CLIA requirements. This test has not been cleared or approved by the U.S. Food and Drug Administration. Test Performed by: [place] [address] Coin Dealer: Yayo Harding II, M.D., Ph.D. 8 standing order 9 Because ethnic data is not always [...] 5 Kidney failure <15 (or dialysis) 10 Test Performed by: [address] [address] Coin Dealer: Yayo Harding II, M.D., Ph.D. 11 Because ethnic data is not always [...] 5 Kidney failure <15 (or dialysis) 12 Because ethnic data is not always readily [...] 15-29 5 Kidney failure <15 (or dialysis) 13 Acute inflammation: >10.00 14 RUN DATE: 03/11/14 [facility] LAB LIVE PAGE 1 RUN TIME: 1108 [address] [place], [place] [address] Specimen Inquiry Name: DEION PERDOMO : [address]: Anam Barroso MD Acct: [id number] Unit: [id number] AGE: 78 Location: LAB Re03/09/14 SEX: F Status: REG REF SPEC: [id number] HELLEN: 03/09/14-1045 [facility] DR: Anam Barroso MD REQ: [id number] RECD: 03/09/14 STATUS: WILL GREWAL DR: Norbert Kidd MD _ SOURCE: URINE SPDESC: ORDERED: Urine Culture QUERIES: Medent Number [id number] Procedure Result Verified Site Urine Culture Final 03/11/14- 1108 ML Organism 1 NORMAL RONAL [place] Count >100,000 (Many) CFU/ML END OF REPORT * ML=Testing performed at Main Lab DEPARTMENT OF PATHOLOGY, [address] [place] [address] Chase Moore M.D. Director [facility] # [id number] 15 REFERENCE VALUE 25-HYDROXY D TOTAL (D2+D3) Optimum levels in the healthy population are 20-50, patients with bone disease may benefit from higher levels within this range. Test Performed by: [place] [address] Coin Dealer: Saran Lomax M.D. 16 RESULT: Polyclonal hypergammaglobulinemia Test Performed by: [place] [address] Coin Dealer: Saran Lomax M.D. 17 [id number] OP PC TRANSFUSED 09/22/10 1356 18 ANY BLOOD NOT GIVEN WILL BE RELEASED AT 0700 ON THE ABOVE DATE UNLESS DOCTOR NOTIFIES LAB OTHERWISE. 19 Anion gap measurement may be of limited value in the presence of any alkalosis, especially in a combined acid base disorder. . 20 Because ethnic data is not always readily [...] 15-29 5 Kidney failure <15 (or dialysis) 21 AA 09/20/10 22 ANY BLOOD NOT GIVEN WILL BE RELEASED AT 0700 ON THE ABOVE DATE UNLESS DOCTOR NOTIFIES LAB OTHERWISE. 23 >100^>100,000 ORGANISMS/ML (MANY)^CCU 24 Lymphopenia % 25 Anion gap measurement may be of limited value in the presence of any alkalosis, especially in a combined acid base disorder. . 26 Because ethnic data is not always readily [...] 15-29 5 Kidney failure <15 (or dialysis) 27 PREADMISSION TESTING SAMPLES FOR BLOOD BANK WILL [...] WITHIN 3 DAYS OF THE SURGERY DATE. 28 [id number] OP PC TRANSFUSED 09/20/101135 29 [id number] OP PC TRANSFUSED 09/20/10 113 30 Recommended INR for Patients on Oral Anticoagulants Prophylaxis 2.0 - 3.0 Treatment of thrombosis 2.0 - 3.0 Prevention of embolism 2.0 - 3.0 Prevention of embolism from prosthetic heart valves 2.5 - 3.5 31 DIAGNOSIS,TREATMENT,AND THERAPY MUST BE BASED ON THE INR VALUE ALONE. 32 CHOLESTEROL INTERPRETATION: Desirable: Less than 200 MG/DL Borderline-High Risk: 200-239 MG/DL High-Risk: 240 MG/DL and over 33 HDL INTERPRETATION: Undesirable: High Risk: Less than 40 MG/DL Desirable: Low Risk: Greater than 60 MG/DL 34 LDL INTERPRETATION: Low Risk Optimal Level: LDL Less than 100 MG/DL Near or Above Optimal: LDL 100-129 MG/DL Borderline High Risk: LDL 130-159 MG/DL High Risk: LDL 160-189 MG/DL Very High Risk: LDL Greater than 189 MG/DL 35 Anion gap measurement may be of limited value in the presence of any alkalosis, especially in a combined acid base disorder. . 36 Note change in reference range as of 11/14/07. The change was based on recommendations from the [place]. 37 Please note change in reference range effective 07 . 38 A metabolite of Naproxen, O-desmethylnaproxen, has been shown to interfere with the Jendrassik-Prema method for measuring total bilirubin. Samples from patients who have taken Naproxen have shown spurious elevation in total bilirubin levels. 39 Because ethnic data is not always readily [...] 15-29 5 Kidney failure <15 (or dialysis) 40 BUDDING YEAST PRESENT 41 FINAL: NO GROWTH DAY 2 (<1,000 CFU/mL) 42 ICTOTEST IS A QUALITATIVE CONFIRMATORY TEST FOR BILIRUBIN. 43 SCANT NORMAL URETHRAL OR PERINEAL RONAL 44 NO MRSA ISOLATED 45 Anion gap measurement may be of limited value in the presence of any alkalosis, especially in a combined acid base disorder. . 46 Note change in reference range as of 11/14/07. The change was based on recommendations from the [place] [employer]. 47 Please note change in reference range effective 07 . 48 A metabolite of Naproxen, O-desmethylnaproxen, has been shown to interfere with the Jendrassik-Prema method for measuring total bilirubin. Samples from patients who have taken Naproxen have shown spurious elevation in total bilirubin levels. 49 Because ethnic data is not always readily [...] 15-29 5 Kidney failure <15 (or dialysis) 50 New Reference Range and Interpretation effective 12/27/2001 TnI (ng/ml) INTERPRETATION Less Than 0.06 ng/mL NOT SUPPORTIVE OF DIAGNOSIS OF [place] 0.06 - 0.50 ng/ml INDETERMINATE: SUGGEST SERIAL STUDIES IF CLINICALLY INDICATED. Greater than 0.5 ng/mL CONSISTENT WITH DIAGNOSIS OF [place] . 51 NRBC 52 Anion gap measurement may be of limited value in the presence of any alkalosis, especially in a combined acid base disorder. . 53 Note change in reference range as of 11/14/07. The change was based on recommendations from the [place] [employer]. 54 Please note change in reference range effective 07 . 55 A metabolite of Naproxen, O-desmethylnaproxen, has been shown to interfere with the Jendrassik-Prema method for measuring total bilirubin. Samples from patients who have taken Naproxen have shown spurious elevation in total bilirubin levels. 56 Because ethnic data is not always readily [...] 15-29 5 Kidney failure <15 (or dialysis) 57 New Reference Range and Interpretation effective 12/27/2001 TnI (ng/ml) INTERPRETATION Less Than 0.06 ng/mL NOT SUPPORTIVE OF DIAGNOSIS OF [place] 0.06 - 0.50 ng/ml INDETERMINATE: SUGGEST SERIAL STUDIES IF CLINICALLY INDICATED. Greater than 0.5 ng/mL CONSISTENT WITH DIAGNOSIS OF [place] . 58 Recommended INR for Patients on Oral Anticoagulants Prophylaxis 2.0 - 3.0 Treatment of thrombosis 2.0 - 3.0 Prevention of embolism 2.0 - 3.0 Prevention of embolism from prosthetic heart valves 2.5 - 3.5 59 DIAGNOSIS,TREATMENT,AND THERAPY MUST BE BASED ON THE INR VALUE ALONE. 60 PLEASE NOTE NEW REFERENCE RANGE EFFECTIVE 08. 61 ---- RUN DATE: 01/25/09 [facility] NMI LIVE PAGE 1 RUN TIME: 1346 Specimen Inquiry RUN USER: INTERFACE -- Name: CHE KIMDEION Valenzuela Status: REG REF Re01/22/09 Age/Sex: 73/F Unit#: [id number] Location: [facility] : 37 -- Specimen: [id number] SOUT Spec Date: 01/22/[address]: Pilo ferreira MD Spec Type: SURGICAL P Received: 01/22/09-8581 Copies to: Anam garcia MD SPECIMEN BIOPSY RIGHT COLON POLYP HISTORY POST-OP DIAGNOSIS: Small polyp removed CLINICAL INFORMATION: Rectal bleeding, history of polyp, removed 2006 GROSS DESCRIPTION Specimen received in formalin labelled Deion Kim, Right Colon Polyp and consists of several fragments of thomson-brown tissue measuring in aggregate 1.0 x 1.0 x 0.4 cm. Submitted entirely, one cassette. DIAGNOSIS Colon, right, biopsy: A. Tubular adenoma. B. No high grade dysplasia or malignancy. Signed Electronically by: CHASE MOORE MD 01/25/09 1344 -- -- DEPARTMENT OF PATHOLOGY, [address] [place] [address] [facility] Permit #[id number] Tyler Calvert M.D. Colorer Hides And Skins Dir sara -- 62 PLEASE NOTE NEW REFERENCE RANGE EFFECTIVE 08. 63 Recommended INR for Patients on Oral Anticoagulants Prophylaxis 2.0 - 3.0 Treatment of thrombosis 2.0 - 3.0 Prevention of embolism 2.0 - 3.0 Prevention of embolism from prosthetic heart valves 2.5 - 3.5 64 ATTENTION EFFECTIVE 08/05/08, THE IMPLEMENTATION OF NEW COAGULATION ANLAYZERS HAS CAUSED A SIGNIFICANT DIFFERENCE FOR PROTIME RESULTS IN SECONDS. THEREFORE, DIAGNOSIS,TREATMENT,AND THERAPY MUST BE BASED ON THE INR VALUE ONLY. 65 New Reference Range and Interpretation effective 12/27/2001 TnI (ng/ml) INTERPRETATION Less Than 0.06 ng/mL NOT SUPPORTIVE OF DIAGNOSIS OF [place] 0.06 - 0.50 ng/ml INDETERMINATE: SUGGEST SERIAL STUDIES IF CLINICALLY INDICATED. Greater than 0.5 ng/mL CONSISTENT WITH DIAGNOSIS OF [place] . 66 Anion gap measurement may be of limited value in the presence of any alkalosis, especially in a combined acid base disorder. . 67 Note change in reference range as of 11/14/07. The change was based on recommendations from the [place] [employer]. 68 Please note change in reference range effective 07 . 69 A metabolite of Naproxen, O-desmethylnaproxen, has been shown to interfere with the Jendrassik-Prema method for measuring total bilirubin. Samples from patients who have taken Naproxen have shown spurious elevation in total bilirubin levels. 70 Because ethnic data is not always readily [...] 15-29 5 Kidney failure <15 (or dialysis) 71 THERAPEUTIC TARGET FOR THE TREATMENT OF DIABETES MELLITUS PATIENTS IS <7% HBA1C, AND IN SELECTIVE PATIENTS <6.0%. PLEASE REFER TO [place] [employer] DIABETIC CARE GUIDELINES FOR FURTHER INFORMATION. 72 MICROALBUMINURIA IN A RANDOM SAMPLE IS DEFINED : MICROALBUMIN/CREATININE RATIO OF 30-299 ug/mg. . 73 CHOLESTEROL INTERPRETATION: Desirable: Less than 200 [...] Risk: LDL Greater than 189 MG/DL 76 Anion gap measurement may be of limited value in the presence of any alkalosis, especially in a combined acid base disorder. . 77 Note change in reference range as of 11/14/07. The change was based on recommendations from the [place] [employer]. 78 Please note change in reference range effective 07 . 79 A metabolite of Naproxen, O-desmethylnaproxen, has been shown to interfere with the Jendrassik-Prema method for measuring total bilirubin. Samples from patients who have taken Naproxen have shown spurious elevation in total bilirubin levels. 80 Because ethnic data is not always readily [...] Kidney failure <15 (or dialysis) Procedures Date Code Description Status 01/16/2018 94869 EKG Tracing & Interpretation Completed 12/26/201739598 Inject/Drain Joint/Bursa Major W/O US Completed 12/10/2017 76162 Admin Of Inj Completed 10/22/2017 878770102 Bone Mineral Density Test Completed 08/16/201727815 Inject/Drain Joint/Bursa Major W/O US Completed 06/04/2017 60000 Injection Single Tendon Origin/Insertion Completed 06/04/2017 Inject/Drain Joint/Bursa Major W/O US Completed 04/13/2017 71545 Admin Of Inj Completed 01/17/2017 90100 EKG Tracing & Interpretation Completed 10/25/2016 43553 Polysomnography Sleep Staging 4+ Parameters W/Cpap Completed 09/12/2016 01807 Admin Of Inj Completed 09/06/2016 70830 Polysomnography Sleep Staging 4+ Parameters Completed 06/14/2016 58732 EKG Tracing & Interpretation Completed 05/03/2016 23405 Inject/Drain Joint/Bursa Major W/O US Completed 05/03/2016 89413 Inject/Drain Joint/Bursa Intermediate W/O US Completed 04/10/2016 23619 Chemotherpy Admin Subcutaneous/Im Non-Hormonal Completed Anti-Neoplastic 04/10/2016 48501 Admin Of Inj Completed 09/10/2015 456191810 Bone Mineral Density Test Completed 09/07/2015 33640 Chemotherpy Admin Subcutaneous/Im Non-Hormonal Completed Anti-Neoplastic 07/29/2015 86165 Stress Test Completed 07/29/2015 67313 Myocardial Perfusion Imaging Tomographic (Spect) Completed Multiple Studies 07/16/2015 94405 EKG Tracing & Interpretation Completed 02/15/2015 75043 Chemotherpy Admin Subcutaneous/Im Non-Hormonal Completed Anti-Neoplastic 12/22/2014 05730 Trigger Finger Release Incision / Tendon Sheath Completed Incision 12/22/2014 22556 Trigger Finger Release Incision / Tendon Sheath Completed Incision 12/11/2014 05308 EKG Tracing & Interpretation Completed 08/13/2014 16953 Admin Of Inj Completed 07/06/2014 80700 Treadmill Interp/Report Only Completed 07/06/2014 66402 Stress Test Supervsn W/Out I/R Completed 07/02/2014 98742 ECHO Transthorasic Realtime 2D W Doppler & Color Flow Completed Hosp 07/02/2014 02669 EKG, Interpretation Only Completed 07/01/2014 15321 EKG, Interpretation Only Completed 07/01/2014 22507 EKG, Interpretation Only Completed 06/15/2014 77058 Inject Tendon Sheath Or Ligament Aponeurosis Eg Completed Plantar Fascia 04/09/2014 04583 Inject/Drain Joint/Bursa Major W/O US Completed 01/28/2014 65900 Admin Of Inj Completed 12/29/2013 83388956 Mammogram Completed 12/29/2013 758694251 Bone Mineral Density Test Completed 12/04/2013 75227 Inject Tendon Sheath Or Ligament Aponeurosis Eg Completed Plantar Fascia 11/13/2013 06031 Inject/Drain Joint/Bursa Major W/O US Completed 05/27/2013 74299 EKG Tracing & Interpretation Completed 05/08/2013 57597 Myocardial Perfusion Imaging Tomographic (Spect) Completed Multiple Studies 05/08/2013 95612 Stress Test Completed 05/06/201393638 Inject/Drain Joint/Bursa Major W/O US Completed 05/01/2013 12607 ECHO Transthoracic, Real-Time 2D With Doppler And Completed Color Flow 04/29/2013 70051 EKG Tracing & Interpretation Completed 11/28/2012 95843 Inject Tendon Sheath Or Ligament Aponeurosis Eg Completed Plantar Fascia 11/28/2012 Inject/Drain Joint/Bursa Major W/O US Completed 11/15/2012 56091 EKG Tracing & Interpretation Completed 06/21/2012 89972 Rad Exam; Hip Unilat Completed 06/21/2012 56410 Rad Exam; Hip Unilat Completed 06/21/2012 41596 Rad Exam; Pelvis Completed 06/21/2012 44995 Rad Exam; Pelvis Completed 04/01/201213471 Inject/Drain Joint/Bursa Intermediate W/O US Completed 09/20/2011 03385 Rad Shoulder Comp, Min. 2 Views Completed 09/20/201128961 Inject/Drain Joint/Bursa Major W/O US Completed 06/02/2011 33038 Xray Knee 3 Views Completed 06/02/2011 67899 Rad Exam; Knee, Ap&L Completed 11/14/2010 86924 Rad Exam; Knee, Ap&L Completed 11/14/2010 86571 Rad Exam; Both Knees, Standing Ap Completed 10/03/2010 68047 Rad Exam; Knee, Ap&L Completed 10/03/2010 87215 Rad Exam; Both Knees, Standing Ap Completed 10/03/2010 68714 Rad Exam; Toes Completed 09/20/2010 43562 Revision TKA W Or W/O Allograft;Femoral & Entire Completed Tibial Component 09/20/2010 04917 Revision TKA W Or W/O Allograft;Femoral & Entire Completed Tibial Component 09/07/2010 56534 Xray Knee 3 Views Completed 09/07/2010 Inject/Drain Joint/Bursa Major W/O US Completed 02/23/2010 Inject/Drain Joint/Bursa Major W/O US Completed 02/16/2010 53097 Xray Knee 3 Views Completed 02/16/2010 72582 Rad Exam; Knee, Ap&L Completed 01/22/2009 65057829 Colonoscopy Completed Encounters Type Date Location Provider Dx Diagnosis Office Visit 01/23/2018 [facility] Yayo Shrestha, M48.05 Spinal stenosis, 8:37a Assoc,pc BLACK thoracolumbar region Hospitalists G95.89 Other specified diseases of spinal cord R53.1 Weakness E66.01 Morbid (severe) obesity due to excess calories E11.40 Type 2 diabetes mellitus with diabetic neuropathy, unsp R26.2 Difficulty in walking, not elsewhere classified Office Visit 01/22/2018 Neurohospital[facility] Lenora Mccarty, 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, 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, lumbar region G62.9 Polyneuropathy, unspecified Office Visit 01/22/2018 10:03a Neurosurgery Patience Davila, M48.04 Spinal stenosis, Services Of Flash [employer] thoracic region R53.1 Weakness W19.xxxA Unspecified fall, initial encounter Office Visit 01/22/2018 8:36a [facility] Rachel Medellin, R53.1 Weakness Assoc,pc Hospitalists THERAPIST SPEECH I10 Essential (primary) hypertension E11.9 Type 2 diabetes mellitus without complications I25.10 [facility] heart disease of [place] coronary artery w/o ang pctrs D64.9 Anemia, unspecified M25.512 Pain in left shoulder M48.05 Spinal stenosis, thoracolumbar region Office Visit 01/21/2018 Neurohospitalist Lenora Mccarty, 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 abscess w bleeding I25.10 Athscl heart disease of [place] coronary artery w/o ang pctrs Office Visit 05/21/2017 11:39a [facility] Assoc, Herman Burrell MD K92.1 [facility] Hospitalists E11.59 Type 2 diabetes mellitus with oth circulatory complications 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 E11.59 Type 2 diabetes mellitus with oth circulatory complications K57.31 Dvrtclos of lg int w/o perforation or abscess w bleeding I25.10 Athscl heart disease of [place] coronary artery w/o ang pctrs Office Visit 04/23/2017 Orthopedic Debra M77.01 Medial 10:00a Services Of Kevin, RPA-C epicondylitis, right C.M.A. 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 disease of [place] coronary artery w/o ang pctrs N18.9 Chronic kidney disease, unspecified I12.9 Hypertensive chronic kidney disease w stg 1-4/unsp chr kdny Office Visit 11/21/2016 Pulmonology And Melony G47.33 Obstructive sleep 10:45a Sleep Services Of COLLEEN Noriega RN, apnea (adult) [facility] (pediatric) G47.14 Hypersomnia due to medical condition Office Visit 09/29/2016 Pulmonology And Melony G47.33 Obstructive sleep 10:00a Sleep Services Of COLLEEN Noriega RN, apnea (adult) [facility] (pediatric) G89.29 Other chronic pain G47.14 Hypersomnia due to medical condition F40.240 Claustrophobia E66.09 Other obesity due to excess calories Z68.36 Body mass index (BMI) 36.0-36.9, adult Office Visit 09/12/2016 10:00a Rheumatology Nadine M81.0 Age-related Services Of [facility] RAY Toro osteoporosis w/o current pathological fracture Z92.29 Personal history of other drug therapy M54.5 Low back pain Office Visit 08/16/2016 2:40p Rheumatology Nadine Toro, M79.604 Pain in Services Of [facility] right leg M81.0 Age-related osteoporosis w/o current pathological fracture M54.42 Lumbago with sciatica, left side Office Visit 08/08/2016 8:45a Pulmonology And Kim R06.81 Apnea, not Sleep Services Of MD Henri elsewhere [facility] classified R06.83 Snoring R40.0 Somnolence R51 Headache G47.8 Other sleep disorders R12 Heartburn E66.09 Other obesity due to excess calories Z68.37 Body mass index (BMI) 37.0-37.9, adult Office Visit 07/21/2016 11:00a [facility] Xiomy Wilson, PA I25.10 Athscl heart Of Cardiovascular Radiologic Technologist disease of [place] coronary artery w/o ang pctrs N18.9 Chronic kidney disease, unspecified I12.9 Hypertensive chronic kidney disease w stg 1-4/unsp chr kdny Office Visit 06/14/2016 9:00a [facility] Xiomy Wilson, R07.9 Chest pain, Of Cardiovascular Radiologic Technologist PA unspecified I25.10 Athscl heart disease of [place] coronary artery w/o ang pctrs N18.9 Chronic kidney disease, unspecified G47.33 Obstructive sleep apnea (adult) (pediatric) Office Visit 05/10/2016 11:15a Orthopedic Virgil Spence, S86.111A Strain musc /tend Services Of [place] post grp at low C.M.A. leg level, right leg, init Office Visit 05/03/2016 1:30p Orthopedic Virgil Spence, M71.21 Synovial cyst of Services Of Tyler popliteal space C.M.A. 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, right elbow S46.011A Strain of musc/tend the rotator cuff of right shoulder, init Office Visit 02/28/2016 10:00a Rheumatology Nadine Toro, R21 Rash and other Services Of CLAIMS ANALYST nonspecific skin Cardiovascular Radiologic Technologist-[place] eruption M81.0 Age-related osteoporosis w/o current pathological fracture E55.9 Vitamin D deficiency, unspecified Z79.899 Other skilled nursing (current) drug therapy Office Visit 12/08/2015 11:00a Rheumatology Kimberlyofioyni M81.0 Age-related Services Of Cardiovascular Radiologic Technologist [place], CLAIMS ANALYST osteoporosis w/o current pathological fracture E55.9 Vitamin D deficiency, unspecified N18.3 Chronic kidney disease, stage 3 (moderate) Z79.899 Other skilled nursing (current) drug therapy Office Visit 09/07/2015 11:30a Rheumatology Kimberlyofiyoni M81.0 Age-related Services Of Cardiovascular Radiologic Technologist [place], CLAIMS ANALYST osteoporosis w/o current pathological fracture K21.9 Gastro-esophageal reflux disease without esophagitis N18.3 Chronic kidney disease, stage 3 (moderate) E55.9 Vitamin D deficiency, unspecified Z92.29 Personal history of other drug therapy Office Visit 08/20/2015 9:30a [facility] Carson Anderson 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 disease of [place] coronary artery w/o ang pctrs R07.9 Chest pain, unspecified Office Visit 07/16/2015 9:15a [facility] Carson Anderson 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 disease of [place] coronary artery w/o ang pctrs I10 Essential (primary) hypertension R07.9 Chest pain, unspecified Office Visit 05/03/2015 11:00a Orthopedic Virgil Spence, S53.401D Unspecified Services Of M.D. sprain of right C.M.A. elbow, subsequent encounter S83.402D Sprain of unsp collateral ligament of left knee, subs encntr S83.92xA Sprain of unspecified site of left knee, initial encounter S83.91xA Sprain of unspecified site of right knee, initial encounter Office Visit 04/19/2015 2:00p Orthopedic Virgil Spence, S83.402D Sprain of unsp Services Of M.D. collateral C.M.A. ligament of left knee, subs encntr S83.401D Sprain of unsp collateral ligament of right knee, subs S53.401A Unspecified sprain of right elbow, initial encounter S83.92xA Sprain of unspecified site of left knee, initial encounter S83.91xA Sprain of unspecified site of right knee, initial encounter Office Visit 02/15/2015 Rheumatology Phillip Sheffield, M81.0 Age-related 11:00a Services Of Flash Scott osteoporosis w/o current pathological fracture Z79.899 Other terminal manager (current) drug therapy M79.7 Fibromyalgia Office Visit 02/12/2015 11:00a [facility] Carson Anderson I10 Essential (primary) Of Flash Hartley M.D. hypertension I25.10 Athscl heart disease of [place] coronary artery w/o ang pctrs Office Visit 01/15/2015 [facility] K92.2 Gastrointestinal 10:32a Assoc,immanuel Durham, THERAPIST SPEECH hemorrhage, Hospitalists unspecified E13.9 Other specified diabetes mellitus without complications I10 Essential (primary) hypertension Office Visit 01/14/2015 [facility] K92.2 Gastrointestinal 10:30a Associmmanuel, THERAPIST SPEECH hemorrhage, Hospitalists unspecified E13.9 Other specified diabetes mellitus without complications I10 Essential (primary) hypertension Office Visit 12/11/2014 3:30p [facility] BLACK Arevalo 727.03 Trigger Finger Of Cardiovascular Radiologic Technologist Acquired 401.9 Hypertension Unspec 414.00 Coronary Atherosclerosis Unspec Type Vessel [place]/Graft 715.09 Osteoarthrosis Generalized Multiple Sites V72.81 Examination Preoperative Cardiovascular Office Visit 12/09/2014 1:30p Orthopedic Services Of Lore Higginbotham, 724.2 Lummonroego C.M.AEladio RPA-C 727.03 Trigger Finger Acquired Office Visit 10/26/2014 1:22p [facility] 584.9 Acute Kidney Assamber,immanuel Bhagat M.D. Failure, Hospitalists Unspecified 786.05 Shortness Of Breath 276.8 Hypopotassemia 401.9 Hypertension Unspec [facility]84.9 Acute Kidney 1:21p Associmmanuel II, M.D. Failure, Hospitalists Unspecified 786.05 Shortness Of Breath 276.8 Hypopotassemia 401.9 Hypertension Unspec Office Visit 10/16/2014 [facility] 562.12 Diverticulosis 11:43a immanuel Phan M.D. Colon W/ Hemorrhage Hospitalists 401.9 Hypertension Unspec Office Visit 10/15/2014 [facility] 562.12 Diverticulosis 11:43a immanuel Phan M.D. Colon W/ Hemorrhage Hospitalists 414.00 Coronary Atherosclerosis Unspec Type Vessel [place]raft 401.9 Hypertension Unspec Office Visit 10/14/2014 [facility] 562.12 Diverticulosis 11:42a immanuel Phan M.D. Colon W/ Hemorrhage Hospitalists 414.00 Coronary Atherosclerosis Unspec Type Vessel [place]raft 401.9 Hypertension Unspec Office Visit 10/13/2014 [facility] 562.12 Diverticulosis 11:41a immanuel Phan M.D. Colon W/ Hemorrhage Hospitalists 414.00 Coronary Atherosclerosis Unspec Type Vessel [place]raft 401.9 Hypertension Unspec Office Visit 10/12/2014 [facility] 562.12 Diverticulosis 11:41a immanuel Phan M.D. Colon W/ Hemorrhage Hospitalists 414.00 Coronary Atherosclerosis Unspec Type Vessel [place]raft 401.9 Hypertension Unspec Office Visit 10/11/2014 [facility] 562.12 Diverticulosis 11:40a immanuel Phan M.D. Colon W/ Hemorrhage Hospitalists 414.00 Coronary Atherosclerosis Unspec Type Vessel [place] 401.9 Hypertension Unspec Office Visit 08/13/2014 Rheumatology Phillip Endo, 733.01 Osteoporosis 10:20a Services Of Flash Scott Senile 724.00 Spinal Stenosis Unspec Region 338.4 Chronic Pain Syndrome 715.09 Osteoarthrosis Generalized Multiple Sites Office Visit 07/06/2014 [facility] 578.9 Hemorrhage 12:48p immanuel Phan M.D. Gastrointestinal Hospitalists Tract Unspec 530.81 Esophageal Reflux 285.1 Anemia Posthemorrhagic Acute 276.8 Hypopotassemia Office Visit 07/05/2014 2:08p [facility] [place] 414.9 Ischemic Heart [place] Gordon Disease Chronic Unspec 794.31 Electrocardiogram (ECG) (EKG) Abnormal 401.1 Hypertension Benign V45.82 Percutaneous Transluminal Coronary Angioplas Postsurg Status Office Visit 07/05/2014 [facility] 578.9 Hemorrhage 12:45p immanuel Phan M.D. Gastrointestinal Hospitalists Tract Unspec 276.8 Hypopotassemia 285.1 Anemia Posthemorrhagic Acute Office Visit 07/04/2014 [facility] 578.9 Hemorrhage 12:45p immanuel Phan M.D. Gastrointestinal Hospitalists Tract Unspec 530.81 Esophageal Reflux 285.1 Anemia Posthemorrhagic Acute 276.8 Hypopotassemia Office 07/03/2014 [facility] Oracio Steinberg 425.11 Hypertrophic Visit 3:45p Of Flash Danielle M.D., Obstructive FACC, FASNC Cardiomyopathy Office 07/03/2014 [facility] 578.9 Hemorrhage Visit 12:44p immanuel Phan M.D. Gastrointestinal Hospitalists Tract Unspec 584.9 Acute Kidney Failure, Unspecified 530.81 Esophageal Reflux 285.1 Anemia Posthemorrhagic Acute Office Visit 07/02/2014 [facility] [place] 578.9 Hemorrhage 12:42p Assoc,pc Rooth, DO Gastrointestinal Hospitalists Tract Unspec 530.81 Esophageal Reflux 786.50 Pain Chest Unspec 285.1 Anemia Posthemorrhagic Acute Office Visit 07/02/2014 10:33a [facility] Jacquelyn Goldberger, 780.2 Syncope & Of Flash Scott Collapse 414.9 Ischemic Heart Disease Chronic Unspec Office Visit 07/01/2014 [facility] [place] 578.9 Hemorrhage 12:42p Assoc,immanuel Cheek, DO Gastrointestinal Hospitalists Tract Unspec 584.9 Acute Kidney Failure, Unspecified 530.81 Esophageal Reflux 285.1 Anemia Posthemorrhagic Acute Office Visit 06/30/2014 [facility] Naeem Reid, 578.9 Hemorrhage 12:41p Assimmanuel clark M.D. Gastrointestinal Hospitalists Tract Unspec 530.81 Esophageal Reflux 285.1 Anemia Posthemorrhagic Acute Office Visit 06/29/2014 10:15a Orthopedic Virgil Spence, 727.03 Trigger Finger Services Of Tyrone Scott Acquired 996.41 Mechanical Loosening Of Prosthetic Joint V43.65 Knee Replacement By Other Means Office Visit 06/15/2014 2:00p Orth[facility] Virgil Spence, 727.03 Trigger Finger Services Of Tyrone Scott Acquired 996.41 Mechanical Loosening Of Prosthetic Joint V43.65 Knee Replacement By Other Means Office Visit 05/27/2014 [facility] Anderson 414.01 Coronary 10:30a Cardiology Jude Harltey M.D. Atherosclerosis Flash [place] 401.9 Hypertension Unspec Office Visit 04/23/2014 Rheumatology Phillip Sheffield, 733.00 Osteoporosis 10:40a Services Of Flash Scott Unspec 724.00 Spinal Stenosis Unspec Region 729.1 Myalgia & Myositis Unspec 715.09 Osteoarthrosis Generalized Multiple Sites Office Visit 04/16/2014 Rheumatology Norbert Kidd, 733.00 Osteoporosis 10:20a Services Of Flash Scott Unspec 724.00 Spinal Stenosis Unspec Region 729.1 Myalgia & Myositis Unspec 715.09 Osteoarthrosis Generalized Multiple Sites Office Visit 02/06/2014 Neurosurgery Rob Johnson 721.2 Spondylosis 3:00p Services Of Flash Salguero M.D. Thoracic W/O Myelopathy Office Visit 01/14/2014 Rheumatology Norbert Kidd, 726.10 Bursae & Tendon 11:00a Services Of Flash Scott Disorders Shoulder Region Unspec 733.00 Osteoporosis Unspec 724.00 Spinal Stenosis Unspec Region 729.1 Myalgia & Myositis Unspec 715.09 Osteoarthrosis Generalized Multiple Sites 585.3 Chronic Kidney Disease Stage III Moderate Office Visit 12/11/2013 1:45p [facility] Carson Anderson 786.50 Pain Chest Of Flash Hartley M.D. Unspec 401.9 Hypertension Unspec 414.01 Coronary Atherosclerosis [place] Office Visit 12/04/2013 Orthopedic Krystle 727.03 Trigger Finger 11:15a Services Of Tyler Crisostomo Acquired C.M.A. Office Visit 12/01/2013 Rheumatology Norbert Kidd, 715.09 Osteoarthrosis 9:00a Services Of Flash Scott Generalized Multiple Sites 729.1 Myalgia & Myositis Unspec 733.00 Osteoporosis Unspec 726.10 Bursae & Tendon Disorders Shoulder Region Unspec 724.00 Spinal Stenosis Unspec Region Office Visit 11/13/2013 1:30p Orthopedic Billy Cantrell 718.81 Derangement Joint Services Of Tyler Other Not C.M.A. Elsewhere Class Shoulder 726.10 Bursae & Tendon Disorders Shoulder Region Unspec 726.2 Shoulder Region Affections Other Not Elsewhere Class Office Visit 05/27/2013 1:45p [facility] Carson D. 786.50 Pain Chest Of Cardiovascular Radiologic Technologist AT [facility] Tyler Hartley Unspec 401.9 Hypertension Unspec 786.05 Shortness Of Breath Office Visit 05/12/2013 10:26a [facility] [place] 786.51 Pain Precordial Assoc,pc Jaskaran D.OEladio Hospitalists 785.1 Palpitations 278.01 Obesity Morbid Office Visit 05/11/2013 10:26a [facility] [place] 786.51 Pain Precordial Assoc,pc Jaskaran DEladioO. Hospitalists 785.1 Palpitations 278.01 Obesity Morbid Office Visit 05/06/2013 11:15a Orthopedic Lula Ferrari 718.81 Derangement Joint Services Of RPA-C Other Not C.M.A. Elsewhere Class Shoulder 726.10 Bursae & Tendon Disorders Shoulder Region Unspec 726.2 Shoulder Region Affections Other Not Elsewhere Class Office Visit 04/29/2013 1:15p [facility] Carson D. 786.50 Pain Chest Of [facility] AT [facility] Tyler Hartley Unspec 786.05 Shortness Of Breath 414.01 Coronary Atherosclerosis [place] 401.9 Hypertension Unspec Office Visit 11/28/2012 11:15a Orthopedic Krystle Crisostomo 727.82 Calcium Services Of Tyler Deposits Tendon C.M.A. & Bursa 727.03 Trigger Finger Acquired 726.2 Shoulder Region Affections Other Not Elsewhere Class Office Visit 11/15/2012 10:15a [facility] Carson D. 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 RPA-C Pelvic Region & Thigh 729.2 Neuralgia Neuritis & Radiculitis Unspec 719.45 Pain Joint Pelvic Region & Thigh Office Visit 04/01/2012 Orthopedic Virgil Spence, 727.82 Calcium Deposits 3:15p Services Of Tyrone Scott Tendon & Bursa Office Visit 02/14/2012 Orthopedic Lula Ferrari, 726.31 Epicondylitis 10:15a Services Of CEladioMEladioAEladio RPA-C Medial Office Visit 01/26/2012 [facility] Renita 786.51 Pain Precordial 12:43p Assoc,immanuel De Jesus M.D. Hospitalists 414.01 Coronary Atherosclerosis [place] 401.9 Hypertension Unspec Office Visit 01/25/2012 12:43p [facility] Naeem Reid 786.51 Pain Precordial Assoc,immanuel Scott Hospitalists 414.01 Coronary Atherosclerosis [place] 401.9 Hypertension Unspec 272.2 Hyperlipidemia Mixed Office Visit 11/20/2011 2:30p Orthopedic Lula 726.31 Epicondylitis Medial Services Of NOHEMI FerrariC C.M.AEladio Office Visit 09/20/2011 8:15a Orthopedic Virgil Spence 726.11 Tendinitis Services Of Tyler Calcifying Shoulder C.M.A. Office Visit 06/02/2011 3:45p Orthopedic Virgil Spence, 715.96 Osteoarthrosis Services Of M.DEladio Unspec Genlzd Or C.M.A. Localized Lower Leg Office Visit 09/07/2010 2:45p Orthopedic Virgil Spence, 719.06 Effusion Joint Lower Services Of M.Justin Leg C.M.A. 996.41 Mechanical Loosening Of Prosthetic Joint Office Visit 02/23/2010 2:30p Orthopedic Virgil Spence 996.41 Mechanical Services Of M.D. Loosening Of C.M.A. Prosthetic Joint Office Visit 02/16/2010 9:00a Orthopedic Virgil Spence 996.41 Mechanical Services Of M.D. Loosening Of C.M.A. Prosthetic Joint 719.46 Pain Joint Lower Leg Office Visit 11/01/2009 DO Not Use Cardiovascular Radiologic Technologist Jamisonananda, 272.4 Hyperlipidemia Other 10:00a AT Sybil Sol MD Unspec 414.01 Coronary Atherosclerosis [place] Office Visit 10/14/2009 10:00a DO Not Use Cardiovascular Radiologic Technologist Jamisonananda, 530.81 Esophageal AT Sybil Sol MD Reflux 599.0 UTI Urinary Tract Infection Site Not Spec 272.4 Hyperlipidemia Other Unspec Office Visit 07/09/2009 1:20p DO Not Use Cardiovascular Radiologic Technologist Chio, 112.1 Candidiasis The AT Sybil Mendieta M.D. 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 307.42 Sleep Disorder Persistent Initiating Or Maintaining Sleep 272.4 Hyperlipidemia Other Unspec 278.00 Obesity Unspec 401.9 Hypertension Unspec 716.86 Arthropathy Other Spec Lower Leg 530.81 Esophageal Reflux 840.4 Sprains & Strains Rotator Cuff (Capsule) 414.01 Coronary Atherosclerosis [place] 412 Myocardial Infarction Old 300.00 Anxiety State Unspec 565.0 Anal Fissure Office Visit 05/02/2009 12:15a [facility] Randal Lerma, 786.50 Pain Chest Assoc,immanuel Scott Unspec Hospitalists Office Visit 04/30/2009 2:30a [facility] 786.50 Pain Chest Assoc,immanuel De Jesus M.D. Unspec Hospitalists 401.9 Hypertension Unspec Office Visit 04/29/2009 2:15a [facility] Renita 786.50 Pain Chest Unspec Assoc,immanuel De Jesus M.D. Hospitalists Office Visit 04/19/2009 3:00p Neurosurgery Rob Dee. 721.0 Spondylosis Services Of Flash Salguero M.D. Cervical W/O Myelopathy Office Visit 03/22/2009 9:40a DO Not Use Cardiovascular Radiologic Technologist AT Eusebio Barroso.42 Sleep Disorder Sybil Mendieta M.D. 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 Mellitus W/O Compl Type II Or Unspec Controlled 278.00 Obesity Unspec 401.9 Hypertension Unspec 272.4 Hyperlipidemia Other Unspec 716.86 Arthropathy Other Spec Lower Leg 530.81 Esophageal Reflux 414.01 Coronary Atherosclerosis [place] 412 Myocardial Infarction Old 565.0 Anal Fissure Plan of Treatment Future Appointment(s):03/12/2018 11:30 am - Patience Davila PA-C at [facility]03/12/2018 11:30 am - Stephen Calixto M.D. at [facility]04/15/2018 11:30 am - RAY Pak at [facility]02/27/2018 - Stephen Calixto M.D.M48.04 Spinal stenosis, thoracic regionFollow up:Schedule surgery for 03/12 Thoracic Decompressive Laminectomy T10-T11
--- OUTSIDE RECORDS SUMMARY | 2018-03-13 15:39 | XMS REPORT | Continuity of Care Document ---
:1935 External Reference #:[id number] Author Name Community, Computer Care Team Providers Name Role Phone [facility] Primary Care Physician Unavailable Payers Type Date Identification Numbers Payment Provider Subscriber Effective: Policy Number: [id number] Medicare Deion Perdomo 1987 PayID: [id number] [facility] [address] [place] [address] Effective: 2017 Policy Number: [id number] [facility] Deion Perdomo Expires: 2018 Group Number: 60% [id number] PayID: [id number] [address] [place] [address] Advance Directives Description No Information Available Problems [...] apnea syndrome Melony Noriega DNP, RN, Active 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 Onset: 09/29/2016 Hypersomnia Melony Noriega DNP, RN, Active 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-BC Onset: 01/20/2018 Walking disability Jailene Mitchell MD [...] mg sc M81.0 Zsofia 2017 q6mon Cortez, [employer]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 Rollator Walker 06/04/ Active use as Krystle 2018 needed Tyler Crisostomo Vitamin A 03/30/ Active Capsules [id number] 1 daily Zsofia 2018 Cortez, [employer]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 Diltiazem HCL 01/17/ Active Caps ER 180mg 90caps 1 po qd Carson Anderson ER 2017 24HR Tyler Hartley Calcium 09/13/ Active Tablets 600-800mg- 60tabs 1 by M81.0 ofi 600/Vitamin D3 2016 Unit mouth Cortez, twice a 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 day Prolia 09/12/ Active Solution 60mg/ml 60mg 60 mg sc M81.0 Zsofia 2016 q6mon Cortez, [employer]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 Ibuprofen 08/16/ Active Tablets 800mg 60tabs 1 tab by M54.32 Zsofia 2016 mouth Cortez, three 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 times a day with food as needed Triamcinolone 02/27/ Active Lotion 0.025% 60ml use on R21 Zsofia Acetonide 2016 affected Cortez, area 2x 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 daily as needed Nitrostat 12/31/ [...] - -Unit mouth Cortez, 09/21/ every day [employer]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 2016 Calcium 600 09/06/ Hx Tablets 600mg 180tab 1 tab by Albert0 Nadine 2015 - s mouth 2x Cortez, 09/12/ daily [employer]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 2016 Percocet 04/19/ Hx Tablets 5-325mg 80tabs [...] Kidd 2016 M81.0 Caltrate 01/14/2014 Hx Tablets [id number]-Jvyo 60tabs 1 po bid 733.00 Norbert 600+D [...] Prolia Administered Injection Zsofia Injection, 017 Cortez, CH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 Denosumab, 1MG Depomedrol Administered Injection Dirk Jordy, 40MG 017 M.DEladio Depomedrol Administered Injection Dirk Jordy, 40MG 017 M.DEladio Prolia Administered Injection Nurse Visit Injection, 017 C Denosumab, 1MG Prolia Administered Injection Zsofia Injection, 016 Cortez, CH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 Denosumab, 1MG Inj, Administered Injection Carson Anderson Regadenoson, 016 Tyler Hartley 0.1 MG Technetium TC Administered Injection Carson Anderson 99M 016 Tyler Hartley Tetrofosmin, Per Unit Dose Up To 40 Millicuries Prolia Administered Injection Phillip Injection, 015 Endo MEladioDEladio Denosumab, 1MG Prolia Administered Injection Phillip Injection, 015 Endo M.D. Denosumab, 1MG Depomedrol Administered Injection Dirk Jordy, 20MG 015 MEladioDEladio Depomedrol Administered Injection Billy [...] CPT Code Status Date Vaccine Lot # [id number] Given 12/23/2008 Zoster (Zostavax) Vital Signs Date [...] Date Facility Test Result H/L Range Note Laboratory test 11/22/2017 [facility] Calcium 5.08 mg/dL N 4.65-5.[address] [place] [address] [phone] Pthi 11/22/2017 [facility] Calcium (PTH 9.8 mg/dL N 8.6-10.[address] Int[address]) [place] [address] [phone] PTH Intact 3.3 pmol/L N 1.3-9.3 Laboratory test 11/22/2017 [facility] Vitamin D 50.8 ng/mL High 20-[address] Total 25(Oh) [place] [address] [phone] Comp Metabolic 2017 [facility] Sodium 135 mmol/L N 133- [address] [place] [address] [phone] Potassium 4.0 mmol/L N 3.5-5.0 Chloride 99 [...] Egfr 45.4 >60 1 Total Protein 24HR 2017 [facility] Urine Collection Time [address] [place] [address] [phone] Urine Total Volume 1600 mL Urine Random Total Protein 19 mg/dL Urine Total Protein/24HR 304 mg/24Hr High 0-165 Creatinine 2017 [facility] Creatinine 1.44 mg/dL High 0.51-0.[address] [place] [address] [phone] Urine Collection Time 24 Urine Total Volume 1600 mL Urine Random Creatinine 70.42 mg/dL Creatinine Clearance 54 mL/min Low 88-128 Laboratory test 03/22/2016 [facility] Vitamin D 40.0 ng/mL N 30-50 2, [address] Total 25(Oh) [place] [address] [phone] Comp Metabolic 03/22/2016 [facility] Sodium 137 mmol/L N 133- [address] [place] [address] [phone] Potassium 3.8 mmol/L N 3.5-5.0 Chloride 98 [...] 31.2 N >60 Egfr 40.1 N >60 4 Pthi 03/22/2016 [facility] Calcium (PTH Intact) 9.9 mg/dL N 8.6-10.[address] [place] [address] [phone] PTH Intact 4.2 pmol/L N 1.3-9.3 Laboratory test 03/22/2016 [facility] Vitamin D, 1,25 43 pg/mL N 18-78 [address] [place] [address] [phone] Laboratory test 12/15/2015 [facility] Vitamin D Total 38.1 ng/ mL N 30-50 [address] 25(Oh) [place], [place] [address] [phone] Pthi 12/15/2015 [facility] Calcium (PTH 9.8 mg/dL N 8.6-10.[address] Intact) [place], [place] [phone] PTH Intact 4.3 pmol/L N 1.3-9.3 Comp Metabolic Panel 12/15/2015 [facility] Sodium 138 mmol/L N 133-[address] [place] [address] [phone] Potassium 3.9 mmol/L N 3.5-5.0 Chloride 101 [...] 31.4 N >60 Egfr 40.4 N >60 7 PTH, Intact 09/03/2015 [facility] Calcium (PTH 9.8 mg/dL N 8.6 -10.[address] Intact) [place] [address] [phone] PTH Intact 8.3 pmol/L N 1.3-9.3 Laboratory test 09/03/2015 [facility] Vitamin D 29.0 ng/mL Low 30-[address] Total 25(Oh) [place] [address] [phone] Vitamin D, 1,25 Dihydroxy 53 pg/mL N 18-78 8 Phosphorus 3.5 mg/dL N 2.5-5.0 Calcium Ionized 4.77 mg/dL N 4.65-5.28 CMP Panel 09/03/2015 [facility] Sodium 136 mmol/L N 133-[address] [place] [address] [phone] Potassium 3.6 mmol/L N 3.5-5.0 Chloride 101 [...] 39.3 N >60 Egfr 50.5 N >60 9 Hemoglobin/Hematacrit 01/18/2015 [facility] Hemoglobin 8.0 Low 12.0-16.[address] g/[place] [address] [phone] Hematocrit 25 % Low 35-47 CBC Auto Diff 05/06/2014 [facility] White Blood 7.2 10^3/uL N 4.8-10.[address] [place] [address] [phone] Red Blood Count 4.22 10^6/uL N 4.0-5.4 [...] % 0 N Comp Metabolic Panel 05/06/2014 [facility] Sodium 139 mmol/L N 133-[address] [place] [address] [phone] Potassium 4.1 mmol/L N 3.5-5.0 Chloride 102 [...] 36.9 N >60 Egfr 47.4 N >60 10 Laboratory test 05/06/2014 [facility] C Reactive 4.35 mg/L N < 5.00 [address] [place] [address] [phone] Erythrocyte Sed Rate 45 mm/Hr High 0-40 Urinalysis Profile 03/09/2014 [facility] Urine Color Yellow N [address] [place] [address] [phone] Urine Appearance Cloudy N Urine Specific [place] 1.013 N 1.010-1.030 Urine pH 8.0 N [...] Present Abnormal Absent Urine Culture And 03/09/2014 [facility] Urine Culture (SEE NOTE ) [address] [place] [address] [phone] Vitamin D, 25 12/29/2013 [facility] 25-Hydroxy <4.0 ng/mL N Hydroxy [address] Vitamin D2 [place] [address] [phone] 25-Hydroxy Vitamin D3 29 ng/mL N 25-Hydroxy Vitamin D Total 29 ng/mL N 13 Protein 12/29/2013 [facility] Total 7.8 g/dL N 6.3 - Electrophoresis [address] Protein(Pep) 7.9 [place] [address] [phone] Albumin 3.6 g/dL N 3.4-4.7 Alpha-1 Globulin 0.3 g/dL N 0.1-0.3 Alpha-2 Globulin 1.1 g/dL Abnormal 0.6-1.0 Beta Globulin 1.1 g/dL N 0.7-1.2 Gamma Globulin 1.8 g/dL Abnormal 0.6-1.6 Albumin/Globulin Ratio 0.84 N Impression See Comment N 14 Pthi 12/29/2013 [facility] PTH Intact 14.6 pmol/L High 1.3- 9.3 [address] [place] [address] [phone] Calcium (PTH Intact) 9.2 mg/dL N 8.6-10.3 RBC Leukoreduced 09/22/2010 [facility] RBC Leukoreduced [id number] [address] O <SEE NOTE> [place] [address] [phone] Patient Blood Type O POSITIVE Antibody Screen NEGATIVE Laboratory test 09/22/2010 [facility] Release Date 09/25/10 [address] [place] [address] [phone] Hemoglobin/Hemata 09/21/2010 [facility] Hemoglobin 10.0 g/dL Low 12.0-[address] [place] [address] 6.0 [place] [address] [phone] Hematocrit 30 % Low 35-47 Basic Metabolic Panel 09/21/2010 [facility] Sodium 138 mmol/L 135-145 [address] [place] [address] [phone] Potassium 3.8 mmol/L 3.5-5.0 Chloride 98 mmol/L Low 101-111 Co2 (Carbon Dioxide) 34.0 mmol/L High 22-32 Anion Gap 6.0 mmol/L 2-11 17 Glucose 107 mg/dL High 70-100 BUN 17 mg/dL 6-24 Creatinine 1.00 mg/dL 0.50-1.40 One Over Creatinine 1.00 BUN/Creatinine Ratio 17.0 8-20 Calcium 8.0 mg/dL Low 8.1-9.9 eGFR Non- 54.3 > 60 eGFR 69.9 > 60 18 Laboratory test 09/12/2010 [facility] Release Date 09/23/10 19, 20 finding [address] [place] [address] [phone] Sensitivities For 09/12/2010 [facility] Ampicillin >=32 R Urine Culture [address] [place] [address] [phone] Amikacin <=2 S Ciprofloxacin >=4 R Ceftriaxone <=1 S Cefazolin <=4 S Nitrofurantoin <=16 S Gentamicin <=1 S Imipenem <=1 S Levofloxacin 4 I Trimeth-Sulfa >=320 R Ceftazidime <=1 S Tigecycline <=0.5 S Piperacillin/Tazobactam KB 30 S Urine Culture & 09/12/2010 [facility] Urine Culture ESCHERICHIA [address] [address] [phone] Laboratory test 09/12/2010 [facility] Erythrocyte Sed 67 MM/HR High 0-[address] Rate 0 [place] [address] [phone] Manual 09/12/2010 [facility] Polysegmented 76 % 38- Differential [address] Neutrophil 83 [place] [address] [phone] Lymphocyte 20 % Low 25-47 Monocyte 3 % 0-13 Eosinophil 1 % 0-6 Absolute Neutrophil Count 8.2 Anisocytosis SLIGHT Stomatocytes 1+ CBC Auto Diff 09/12/2010 [facility] White Blood 10.8 CUMM 4.8 -10.[address] [place] [address] [phone] Red Cell Count 3.92 CUMM Low 4.2-5.4 Hemoglobin 11.6 g/dL Low 12.0-16.0 Hematocrit 36 % 35-47 Mean Corpuscular Volume 91 um3 79-97 Mean Corpuscular Hemoglob 29 pg 27-31 Mean Corpuscular HGB Cone 32 g/dL 32-36 Redcell Distribution WDTH 15 % 10.5-15 Platelet Count 294 CUMM 150-450 Mean Platelet Volume 7.8 um3 7.4-10.4 22 Laboratory test 09/12/2010 [facility] C Reactive 1.7 mg/dL High Less Than finding [address] Protein 0.5 [place] [address] [phone] Basic Metabolic 09/12/2010 [facility] Sodium 138 mmol/L 135- [address] [place] [address] [phone] Potassium 3.6 mmol/L 3.5-5.0 Chloride 101 mmol/L 101-111 Co2 (Carbon Dioxide) 29.0 mmol/L 22-32 Anion Gap 8.0 mmol/L 2-11 23 Glucose 98 mg/dL 70-100 BUN 27 mg/dL High 6-24 Creatinine 0.87 mg/dL 0.50-1.40 One Over Creatinine 1.10 BUN/Creatinine Ratio 31.0 High 8-20 Calcium 9.5 mg/dL 8.1-9.9 eGFR Non- 63.8 > 60 eGFR 82.1 > 60 24 Type And Screen 09/12/2010 [facility] Patient Blood O POSITIVE (Pre-Adm) [facility] [place] [address] [phone] Antibody Screen NEGATIVE Specimen Discard Date 09/26/10 25 RBC Leukoreduced [id number] O <SEE NOTE> 26 RBC Leukoreduced [id number] O <SEE NOTE> 27 Laboratory test 09/12/2010 [facility] PTT (Aptt) 29.6 25.15- 38.[address] [place] [address] [phone] Protime 09/12/2010 [facility] Inr 0.94 0.82-1.[address] [place] [address] [phone] Protime 11.1 SEC 10.2-14.8 29 Urinalysis W/Microscopic 09/12/2010 [facility] Ua Color YELLOW Yellow [address] [place] [address] [phone] Appearance-Urine CLOUDY Clear Specific [place]-Ur 1.024 1.010-1.030 Esterase-Urine 3+ Abnormal Negative Nitrite NEGATIVE Negative Ksbshphzoeoi-Hq-SBE NEGATIVE Negative Protein-Urine 1+ Abnormal Negative PH-Urine 6.0 5-9 Blood-Urine 3+ Abnormal Negative Ketones-Urine NEGATIVE Negative Bilirubin-Ur NEGATIVE Negative Glucose-Urine NEGATIVE Negative WBC-Urine TNTC Abnormal 0-5 RBC-Urine 2-5 0-2 Epith Cells-Ur FEW None Bacteria-Urine 4+ None Lipid Profile 10/22/2009 [facility] Triglyceride 160 mg/dL 40 -200 (Trig/Chol/HDL) [address] [place] [address] [phone] Cholesterol 167 mg/dL Less Than 200 30 High Density Lipoprotein 57 mg/dL 40-60 31 Cholesterol/HDL Ratio 2.93 AVERAGE 1-4.44 Low Density Lipoprotein 78 mg/dL Less Than 100 32 Laboratory test 10/22/2009 [facility] TSH 2.82 MIU/ML 0.34- 5.[address] [place] [address] [phone] Comp Metabolic 10/22/2009 [facility] Sodium 138 mmol/L 135- [address] [place] [address] [phone] Potassium 4.9 mmol/L 3.5-5.0 Chloride 104 mmol/L [...] 47.5 > 60 37 CBC With Manual 10/22/2009 [facility] White Blood 8.3 CUMM 4.8-10.[address] [place] [address] [phone] Red Cell Count 4.52 CUMM 4.2-5.4 Hemoglobin [...] 5.1 RBC Morphology NORMAL Urinalysis W/Microscopic 07/09/2009 [facility] Ua Color YELLOW Yellow [address] [place] [address] [phone] Appearance-Urine CLEAR Clear Specific [place]-Ur 1.017 1.010-1.030 Esterase-Urine 1+ Abnormal Negative Nitrite NEGATIVE Negative Cblqxndlvtvc-Yo-FZX NEGATIVE Negative Protein-Urine NEGATIVE Negative PH-Urine 6.0 5-9 Blood-Urine 2+ Abnormal Negative Ketones-Urine NEGATIVE Negative Bilirubin-Ur NEGATIVE Negative Glucose-Urine NEGATIVE Negative WBC-Urine 0-2 0-5 RBC-Urine 0-2 0-2 Epith Cells-Ur FEW None Ua Comments (SEE NOTE) 38 Urine Culture & 07/09/2009 [facility] Urine Culture NG [address] [place] [address] [phone] Laboratory test 07/09/2009 [facility] Hemoglobin A1c 5.8 5-7 finding Urinalysis 05/22/2009 [facility] Ua Color RED Yellow W/Microscopic [address] [place] [address] [phone] Appearance-Urine TURBID Clear Specific [place]-Ur 1.007 Low 1.010-1.030 Esterase-Urine 3+ Abnormal Negative Nitrite POSITIVE Abnormal Negative Ljlffibtlith-Up-ODA NEGATIVE Negative Protein-Urine 3+ Abnormal Negative PH-Urine 6.0 5-9 Blood-Urine 3+ Abnormal Negative Ketones-Urine 1+ Abnormal Negative Bilirubin-Ur SEE ICTOTEST Abnormal Negative Glucose-Urine NEGATIVE Negative WBC-Urine TNTC Abnormal 0-5 RBC-Urine 3-5 0-2 Mucus Urine SMALL None Epith Cells-Ur FEW None Bacteria-Urine 3+ None Laboratory test 05/22/2009 [facility] Ictotest-Urine NEGATIVE 40 finding [facility] [place] [address] [phone] Urine Culture & 05/22/2009 [facility] Urine Culture SN1 [address] [facility] [place] [address] [phone] MRSA/Vre Screen 05/02/2009 [facility] MRSA/Vre Culture NFICU 42 [facility] [place] [address] [phone] CBC With Manual 05/01/2009 [facility] White Blood Count 9.0 CUMM 4.8-[address] 0.8 [place] [address] [phone] Red Cell Count 4.47 CUMM 4.2-5.4 Hemoglobin [...] 5.9 Anisocytosis SLIGHT CMP Panel Stat 05/01/2009 [facility] Sodium 138 mmol/L 135- [address] [place] [address] [phone] Potassium 3.9 mmol/L 3.5-5.0 Chloride 101 mmol/L [...] eGFR 57.0 > 60 47 Laboratory test 05/01/2009 [facility] Troponin-I (TnI) 0.04 NG/ ML [address] [place] [address] [phone] CBC With 04/29/2009 [facility] White Blood 8.2 CUMM 4.8-10 Electronic Diff [address] Count .8 [place] [address] [phone] Red Cell Count 4.76 CUMM 4.2-5.4 Hemoglobin [...] 0 0-0.2 49 Comp Metabolic Panel 04/29/2009 [facility] Sodium 137 mmol/L 135-[address] [place] [address] [phone] Potassium 3.2 mmol/L Low 3.5-5.0 Chloride 98 [...] eGFR 61.0 > 60 54 Laboratory test 04/29/2009 [facility] Troponin-I (TnI) 0.02 NG/ ML [address] [place] [address] [phone] Magnesium Stat 04/29/2009 [facility] Magnesium 2.1 mg/dL 1.7- 2. [address] 6 [place] [address] [phone] Amylase Stat 04/29/2009 [facility] Amylase 52 U/L 30-[address] [place] [address] [phone] Laboratory test 04/29/2009 [facility] Lipase 25 U/L 22-[address] [place] [address] [phone] Protime Stat 04/29/2009 [facility] Inr 0.97 0.97-[address] [place] [address] [phone] Protime 11.4 SEC Low 11.5-12.2 57 PTT (Aptt) 04/29/2009 [facility] PTT (Aptt) 32.5 25.15-38.53 [address] [place] [address] [phone] Laboratory 04/29/2009 [facility] D Dimer < 200 Less Than 230 test finding [address] Quantitative [place], [place] [address] [phone] BNP Evaluatr 37.0 pg/mL 0-100 Surgical 01/22/2009 [facility] Surgical [address] Pathology <SEE NOTE> [place] [address] [phone] PTT (Aptt) 01/04/2009 [facility] PTT (Aptt) 28.2 25.[address] 5-38 [place] [address] .53 [phone] Protime Stat 01/04/2009 [facility] Inr 0.99 0.[address] -1.1 [place] [address] 3 [phone] Protime 12.1 SEC 10.7-13.6 62 Laboratory test 01/04/2009 [facility] Troponin-I (TnI) 0.02 NG/ ML [address] [place] [address] [phone] Magnesium Stat 01/04/2009 [facility] Magnesium 2.3 mg/dL 1.7- 2. [address] 6 [place] [address] [phone] CMP Panel Stat 01/04/2009 [facility] Sodium 136 mmol/L 135- [address] 5 [place] [address] [phone] Potassium 3.7 mmol/L 3.5-5.0 Chloride 97 mmol/L [...] eGFR 47.7 > 60 68 CBC With 01/04/2009 [facility] White Blood 9.2 CUMM 4.8-10.8 Electronic Diff [address] [place] [address] [phone] Red Cell Count 4.44 CUMM 4.2-5.4 Hemoglobin [...] Abs Basophils 0 0-0.2 Laboratory test 01/01/2009 [facility] Hemoglobin A1c 6.4 % High Less [address] Than 6.0 [place] [address] [phone] Urine 01/01/2009 [facility] Microalbumin 40.[address] (MG/L) mg/[place] [address] [phone] Urine Creatinine 138.18 mg/dL Fortunato Alb/Creatinine Ratio 28.9 UG/MG Less Than 30 70 Lipid Profile 01/01/2009 [facility] Triglyceride 64 mg/dL 40- 200 (Trig/Chol/HDL) [address] [place] [address] [phone] Cholesterol 174 mg/dL Less Than 200 71 High Density Lipoprotein 70 mg/dL High 40-60 72 Cholesterol/HDL Ratio 2.49 AVERAGE 1-4.44 Low Density Lipoprotein 91 mg/dL Less Than 100 73 Comp Metabolic Panel 01/01/2009 [facility] Sodium 139 mmol/L 135-[address] [place] [address] [phone] Potassium 4.0 mmol/L 3.5-5.0 Chloride 102 mmol/L [...] eGFR 57.0 > 60 78 CBC With 01/01/2009 [facility] White Blood 15.4 CUMM High 4.8- 10.8 Manual Diff [address] [place] [address] [phone] Red Cell Count 4.71 CUMM 4.2-5.4 Hemoglobin [...] developed and its performance characteristics determined by [facility] in a manner consistent with CLIA requirements. This test has not been cleared or approved by the U.S. Food and Drug Administration. Test Performed by: [place] [address] Fisher Eel Spear: Yayo Harding II, M.D., Ph.D. 6 standing [...] <15 (or dialysis) 8 Test Performed by: [address] [address] Fisher Eel Spear: Yayo Harding II, M.D., Ph.D. 9 Because [...] Acute inflammation: >10.00 12 RUN DATE: 03/11/14 [facility] LAB LIVE PAGE 1 RUN TIME: 1108 [address] [place], [place] [address] Specimen Inquiry Name: DEION PERDOMO : [address]: Anam Barroso MD Acct: [id number] Unit: [id number] AGE: 78 Location: LAB Re03/09/14 SEX: F Status: REG REF SPEC: [id number] HELLEN: 03/09/14-1045 [facility] DR: Anam Barroso MD PC REQ: [id number] RECD: 03/09/14 STATUS: WILL GREWAL DR: Norbert Kidd MD _ SOURCE: URINE SPDESC: ORDERED: Urine Culture QUERIES: Medent Number [id number] Procedure Result Verified Site Urine Culture Final 03/11/14- 1108 ML Organism 1 NORMAL RONAL Bennet Count >100,000 (Many) CFU/ML END OF REPORT * ML=Testing performed at Main Lab DEPARTMENT OF PATHOLOGY, [address] [place] [address] Chase Moore M.D. Director [facility] # [id number] REFERENCE VALUE 25-HYDROXY D TOTAL (D2+D3) Optimum levels in the healthy population are 20-50, patients with bone disease may benefit from higher levels within this range. Test Performed by: [place] [address] Fisher Eel Spear: Saran Lomax M.D. 14 RESULT: Polyclonal hypergammaglobulinemia Test Performed by: [place] [address] Fisher Eel Spear: Saran Lomax M.D. 15 [id number] OP PC TRANSFUSED 09/22/10 1356 16 ANY [...] 3 DAYS OF THE SURGERY DATE. 26 [id number] OP PC TRANSFUSED 09/20/10 113 27 [id number] OP PC TRANSFUSED 09/20/10 1136 28 Recommended [...] change was based on recommendations from the [place] [employer]. 35 Please note change in reference range effective 07 . 36 A metabolite of Naproxen, O-desmethylnaproxen, has been shown to interfere with the Jendrassik-Hoover method for measuring total bilirubin. Samples from [...] change was based on recommendations from the [place] [employer]. 45 Please note change in [...] 0.06 ng/mL NOT SUPPORTIVE OF DIAGNOSIS OF MO 0.06 - 0.50 ng/ml INDETERMINATE: SUGGEST SERIAL STUDIES IF CLINICALLY INDICATED. Greater than 0.5 ng/mL CONSISTENT WITH DIAGNOSIS OF MO . 49 NRBC 50 Anion gap measurement may be of limited value in the presence of any alkalosis, especially in a combined acid base disorder. . 51 Note change in reference range as of 11/14/07. The change was based on recommendations from the [place] [employer]. 52 Please note change in reference range effective 07 . 53 A metabolite of Naproxen, O-desmethylnaproxen, has been shown to interfere with the Jendrassik-Hoover method for measuring total bilirubin. Samples from [...] 0.06 ng/mL NOT SUPPORTIVE OF DIAGNOSIS OF MO 0.06 - 0.50 ng/ml INDETERMINATE: SUGGEST SERIAL STUDIES IF CLINICALLY INDICATED. Greater than 0.5 ng/mL CONSISTENT WITH DIAGNOSIS OF MO . 56 Recommended INR for Patients on Oral Anticoagulants Prophylaxis 2.0 - 3.0 Treatment of thrombosis 2.0 - 3.0 Prevention of embolism 2.0 - 3.0 Prevention of embolism from prosthetic heart valves 2.5 - 3.5 57 DIAGNOSIS,TREATMENT,AND THERAPY MUST BE BASED ON THE INR VALUE ALONE. 58 PLEASE NOTE NEW REFERENCE RANGE EFFECTIVE 08. 59 ---- RUN DATE: 01/25/09 [facility] NMI LIVE PAGE 1 RUN TIME: 1346 Specimen Inquiry RUN USER: INTERFACE -- Name: DEION GONZALEZ Status: REG REF Re01/22/09 Age/Sex: 73/F Unit#: [id number] Location: [facility]. : 39 -- Specimen: [id number] SOUT Spec Date: 01/22/[address]: Pilo ferreira MD Spec Type: SURGICAL P Received: 01/22/09-3025 Copies to: Anam garcia MD SPECIMEN BIOPSY RIGHT COLON POLYP HISTORY POST-OP DIAGNOSIS: Small polyp removed CLINICAL INFORMATION: Rectal bleeding, history of polyp, removed 2006 GROSS DESCRIPTION Specimen received in formalin labelled Deion Predomo Carla, Right Colon Polyp and consists of several fragments of thomson-brown tissue measuring in aggregate 1.0 x 1.0 x 0.4 cm. Submitted entirely, one cassette. DIAGNOSIS Colon, right, biopsy: A. Tubular adenoma. B. No high grade dysplasia or malignancy. Signed Electronically by: CHASE MOORE MD 01/25/09 1344 -- -- DEPARTMENT OF PATHOLOGY, [address] [place] [id number] [facility] Permit #[id number] Tyler Calvert M.D. Statue Carver Dir sara -- 62 PLEASE NOTE NEW [...] 0.06 ng/mL NOT SUPPORTIVE OF DIAGNOSIS OF [place] 0.06 - 0.50 ng/ml INDETERMINATE: SUGGEST SERIAL STUDIES IF CLINICALLY INDICATED. Greater than 0.5 ng/mL CONSISTENT WITH DIAGNOSIS OF [place] . 64 Anion gap measurement may be of limited value in the presence of any alkalosis, especially in a combined acid base disorder. . 65 Note change in reference range as of 11/14/07. The change was based on recommendations from the [place] [employer]. 66 Please note change in [...] IN SELECTIVE PATIENTS <6.0%. PLEASE REFER TO [employer] DIABETIC CARE GUIDELINES FOR FURTHER [...] change was based on recommendations from the [place] [employer]. 76 Please note change in [...] dialysis) Procedures Date Code Description Status 01/16/2018 18894 EKG Tracing & Interpretation Completed 12/26/2017 51868 Inject/Drain Joint/Bursa Major W/O US Completed 12/10/2017 72346 Admin Of Inj Completed 10/22/2017 [id number] Bone Mineral Density Test Completed 08/16/2017 92438 Inject/Drain Joint/Bursa Major W/O US Completed 06/04/2017 96555 Injection Single Tendon Origin/Insertion Completed 06/04/201783862 Inject/Drain Joint/Bursa Major W/O US Completed 04/13/2017 21753 Admin Of Inj Completed 01/17/2017 45825 EKG Tracing & Interpretation Completed 10/25/2016 39472 Polysomnography Sleep Staging 4+ Parameters W/Cpap Completed 09/12/2016 96440 Admin Of Inj Completed 09/06/2016 34496 Polysomnography Sleep Staging 4+ Parameters Completed 06/14/2016 58158 EKG Tracing & Interpretation Completed 05/03/2016 73668 Inject/Drain Joint/Bursa Major W/O US Completed 05/03/2016 68170 Inject/Drain Joint/Bursa Intermediate W/O US Completed 04/10/2016 44449 Chemotherpy Admin Subcutaneous/Im Non-Hormonal Completed Anti-Neoplastic 04/10/2016 30960 Admin Of Inj Completed 09/10/2015 504442914 Bone Mineral Density Test Completed 09/07/2015 50114 Chemotherpy Admin Subcutaneous/Im Non-Hormonal Completed Anti-Neoplastic 07/29/2015 04861 Stress Test Completed 07/29/2015 24545 Myocardial Perfusion Imaging Tomographic (Spect) Completed Multiple Studies 07/16/2015 26557 EKG Tracing & Interpretation Completed 02/15/2015 51453 Chemotherpy Admin Subcutaneous/Im Non-Hormonal Completed Anti-Neoplastic 12/22/2014 72206 Trigger Finger Release Incision / Tendon Sheath Completed Incision 12/22/2014 21227 Trigger Finger Release Incision / Tendon Sheath Completed Incision 12/11/2014 49399 EKG Tracing & Interpretation Completed 08/13/2014 21842 Admin Of Inj Completed 07/06/2014 61802 Treadmill Interp/Report Only Completed 07/06/2014 49569 Stress Test Supervsn W/Out I/R Completed 07/02/2014 67266 ECHO Transthorasic Realtime 2D W Doppler & Color Flow Completed [facility] 07/02/2014 14875 EKG, Interpretation Only Completed 07/01/2014 28810 EKG, Interpretation Only Completed 07/01/2014 48606 EKG, Interpretation Only Completed 06/15/2014 26088 Inject Tendon Sheath Or Ligament Aponeurosis Eg Completed Plantar Fascia 04/09/2014 07931 Inject/Drain Joint/Bursa Major W/O US Completed 01/28/2014 60680 Admin Of Inj Completed 12/29/2013 14768157 Mammogram Completed 12/29/2013 523309875 Bone Mineral Density Test Completed 12/04/2013 96954 Inject Tendon Sheath Or Ligament Aponeurosis Eg Completed Plantar Fascia 11/13/2013 78363 Inject/Drain Joint/Bursa Major W/O US Completed 05/27/2013 14511 EKG Tracing & Interpretation Completed 05/08/2013 92334 Myocardial Perfusion Imaging Tomographic (Spect) Completed Multiple Studies 05/08/2013 60449 Stress Test Completed 05/06/2013 96495 Inject/Drain Joint/Bursa Major W/O US Completed 05/01/2013 31855 ECHO Transthoracic, Real-Time 2D With Doppler And Completed Color Flow 04/29/2013 62998 EKG Tracing & Interpretation Completed 11/28/2012 49760 Inject Tendon Sheath Or Ligament Aponeurosis Eg Completed Plantar Fascia 11/28/2012 Inject/Drain Joint/Bursa Major W/O US Completed 11/15/2012 15548 EKG Tracing & Interpretation Completed 06/21/2012 75211 Rad Exam; Hip Unilat Completed 06/21/2012 02360 Rad Exam; Hip Unilat Completed 06/21/2012 20300 Rad Exam; Pelvis Completed 06/21/2012 86065 Rad Exam; Pelvis Completed 04/01/201222468 Inject/Drain Joint/Bursa Intermediate W/O US Completed 09/20/2011 52588 Rad Shoulder Comp, Min. 2 Views Completed 09/20/201163551 Inject/Drain Joint/Bursa Major W/O US Completed 06/02/2011 61128 Xray Knee 3 Views Completed 06/02/2011 83479 Rad Exam; Knee, Ap&L Completed 11/14/2010 62352 Rad Exam; Knee, Ap&L Completed 11/14/2010 45790 Rad Exam; Both Knees, Standing Ap Completed 10/03/2010 14509 Rad Exam; Knee, Ap&L Completed 10/03/2010 91037 Rad Exam; Both Knees, Standing Ap Completed 10/03/2010 01016 Rad Exam; Toes Completed 09/20/2010 69804 Revision TKA W Or W/O Allograft;Femoral & Entire Completed Tibial Component 09/20/2010 87836 Revision TKA W Or W/O Allograft;Femoral & Entire Completed Tibial Component 09/07/2010 25349 Xray Knee 3 Views Completed 09/07/2010 Inject/Drain Joint/Bursa Major W/O US Completed 02/23/2010 Inject/Drain Joint/Bursa Major W/O US Completed 02/16/2010 70688 Xray Knee 3 Views Completed 02/16/2010 32634 Rad Exam; Knee, Ap&L Completed 01/22/2009 [id number] Colonoscopy Completed Encounters Type Date Location Provider Dx Diagnosis Office Visit 01/23/2018 [facility] Yayo Shrestha, M48.05 Spinal stenosis, 8:37a Assoc,pc PA thoracolumbar region Hospitalists G95.89 Other specified diseases [...] Davila, M48.04 Spinal stenosis, Services Of Flash CLEANING-C thoracic region R53.1 Weakness W19.xxxA Unspecified fall, initial encounter Office Visit 01/22/2018 8:36a [facility] Rachel Medellin, R53.1 Weakness Assoc,pc Hospitalists [employer] GUIDE I10 Essential (primary) hypertension E11.9 Type 2 diabetes mellitus without complications I25.10 [facility] heart disease of [place] coronary artery w/o ang pctrs D64.9 Anemia, unspecified M25.512 Pain in left shoulder M48.05 Spinal stenosis, thoracolumbar region Office Visit 01/21/2018 [facility] Lenora Mccarty, 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 disease of [place] coronary artery w/o ang pctrs R94.31 Abnormal electrocardiogram [ECG] [EKG] Office Visit 10/15/2017 Rheumatology Zsofia M81.0 Age-related 1:30p Services Of RAY Toro osteoporosis w/o Naren current pathological fracture Office Visit 07/13/2017 [facility] Carson Anderson I25.10 Athscl heart 10:30a Of Flash Hartley M.D. 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, left shoulder Office Visit 05/22/2017 11:40a [facility], Herman Burrell MD K92.1 [facility] Hospitalists E11.59 Type 2 diabetes mellitus with oth circulatory complications K57.31 Dvrtclos of lg int w/o perforation or abscess w bleeding I25.10 Athscl heart disease of [place] coronary artery w/o ang pctrs Office Visit 05/21/2017 11:39a [facility] Assoc, Herman Burrell MD K92.1 [facility] Hospitalists E11.59 Type 2 diabetes mellitus with oth circulatory complications K57.31 Dvrtclos of lg int w/o perforation or abscess w bleeding I25.10 Athscl heart disease of [place] coronary artery w/o ang pctrs Office Visit 05/20/2017 11:38a [facility] Ass, Herman Burrell MD K92.1 [facility] Hospitalists E11.59 Type 2 diabetes mellitus with oth circulatory complications K57.31 Dvrtclos of lg int w/o perforation or abscess w bleeding I25.10 Athscl heart disease of [place] coronary artery w/o ang pctrs Office Visit 05/19/2017 11:37a [facility] Assoc, [place] [facility]92.1 [facility] E11.59 Type 2 diabetes mellitus with oth circulatory complications K57.31 Dvrtclos of lg int w/o perforation or abscess w bleeding I25.10 Athscl heart disease of [place] coronary artery w/o ang pctrs Office Visit 04/23/2017 Orthopedic Debra M77.01 Medial 10:00a Services Of Bitting, RPA-C epicondylitis, right C.M.A. 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 Cortez, CH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 osteoporosis w/o current pathological fracture N18.9 Chronic kidney disease, unspecified M77.01 Medial epicondylitis, right elbow Office Visit 01/17/2017 11:45a [facility] Carson Anderson I25.[address] [facility] Tyler Hartley disease of [place] coronary artery w/o ang pctrs N18.9 Chronic kidney disease, unspecified I12.9 Hypertensive chronic kidney disease w stg 1-4/unsp chr kdny Office Visit 11/21/2016 Pulmonology And Melony G47.33 Obstructive sleep 10:45a Sleep Services Of COLLEEN Noriega RN, apnea (adult) [facility] (pediatric) G47.14 Hypersomnia due to medical condition Office Visit 09/29/2016 Pulmonology And Melony G47.33 Obstructive sleep 10:00a Sleep Services Of COLLEEN Noriega RN, apnea (adult) [facility]- (pediatric) G89.29 Other chronic pain G47.14 Hypersomnia due to medical condition F40.240 Claustrophobia E66.09 Other obesity due to excess calories Z68.36 Body mass index (BMI) 36.0-36.9, adult Office Visit 09/12/2016 10:00a Rheumatology Kimberlyofiyoni M81.0 Age-related Services Of [facility] Cortez, CH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 osteoporosis w/o current pathological fracture Z92.29 Personal history of other drug therapy M54.5 Low back pain Office Visit 08/16/2016 2:40p Rheumatology Nadine Toro, M79.[address] Services Of [facility] CH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 right leg M81.0 Age-related osteoporosis w/o current pathological fracture M54.42 Lumbago with sciatica, left side Office Visit 08/08/2016 8:45a Pulmonology And Kim R06.81 Apnea, not Sleep Services Of MD Henri elsewhere [facility] classified R06.83 Snoring R40.0 Somnolence R51 Headache G47.8 Other sleep disorders R12 Heartburn E66.09 Other obesity due to excess calories Z68.37 Body mass index (BMI) 37.0-37.9, adult Office Visit 07/21/2016 11:00a [facility] BLACK Arevalo I25.[address] [facility] disease of [place] coronary artery w/o ang pctrs N18.9 Chronic kidney disease, unspecified I12.9 Hypertensive chronic kidney disease w stg 1-4/unsp chr kdny Office Visit 06/14/2016 9:00a [facility] Xiomy Chaconis, R07.9 Chest pain, Of [facility] PA unspecified I25.10 Athscl heart disease of [place] coronary artery w/o ang pctrs N18.9 Chronic [...] Toro, R21 Rash and other Services Of CH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 nonspecific skin 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 disease of [place] coronary artery w/o ang pctrs R07.9 Chest pain, unspecified Office Visit 07/16/2015 9:15a [facility] Carson Anderson 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 disease of [place] coronary artery w/o ang pctrs I10 Essential [...] osteoporosis w/o current pathological fracture Z79.899 Other skilled nursing (current) drug therapy M79.7 Fibromyalgia Office Visit 02/12/2015 11:00a [facility] Carson Anderson I10 Essential (primary) Of Flash Hartley M.D. hypertension I25.10 Athscl heart disease of [place] coronary artery w/o ang pctrs Office Visit 01/15/2015 [facility] K92.2 Gastrointestinal 10:32a Assoc,immanuel Durham, [employer] GUIDE hemorrhage, Hospitalists unspecified E13.9 Other specified diabetes mellitus without complications I10 Essential (primary) hypertension Office Visit 01/14/2015 [facility] K92.2 Gastrointestinal 10:30a Assoc,immanuel Durham, MOUNT[employer] GUIDE hemorrhage, Hospitalists unspecified E13.9 Other specified diabetes mellitus without complications I10 Essential (primary) hypertension Office Visit 12/11/2014 3:30p [facility] BLACK Arevalo 727.03 Trigger Finger Of Milk Powder Grinder Acquired 401.9 Hypertension Unspec 414.00 Coronary Atherosclerosis Unspec Type Vessel [place]/Graft 715.09 Osteoarthrosis Generalized Multiple Sites V72.81 Examination Preoperative Cardiovascular Office Visit 12/09/2014 1:30p Orthopedic Services Of Loreyoni Higginbotham, 724.2 Lumgonzalo Muñiz.MEladioAEladio RPA-C 727.03 Trigger Finger Acquired Office Visit 10/26/2014 1:22p [facility] 584.9 Acute Kidney Assimmanuel clark M.D. Failure, Hospitalists Unspecified 786.05 Shortness Of Breath 276.8 Hypopotassemia 401.9 Hypertension Unspec [facility]84.[facility] Acute Kidney 1:21p Assimmanuel clark II, M.D. Failure, Hospitalists Unspecified 786.05 Shortness Of Breath 276.8 Hypopotassemia 401.9 Hypertension Unspec Office Visit 10/16/2014 [facility] 562.12 Diverticulosis 11:43a immanuel Phan M.D. Colon W/ Hemorrhage Hospitalists 401.9 Hypertension Unspec Office Visit 10/15/2014 [facility] 562.12 Diverticulosis 11:43a immanuel Phan M.D. Colon W/ Hemorrhage Hospitalists 414.00 Coronary Atherosclerosis Unspec Type Vessel [place]/Graft 401.9 Hypertension Unspec Office Visit 10/14/2014 [facility] 562.12 Diverticulosis 11:42a immanuel Phan M.D. Colon W/ Hemorrhage Hospitalists 414.00 Coronary Atherosclerosis Unspec Type Vessel [place]/Graft 401.9 Hypertension Unspec Office Visit 10/13/2014 [facility] 562.12 Diverticulosis 11:41a immanuel Phan M.D. Colon W/ Hemorrhage Hospitalists 414.00 Coronary Atherosclerosis Unspec Type Vessel [place]/Graft 401.9 Hypertension Unspec Office Visit 10/12/2014 [facility] 562.12 Diverticulosis 11:41a immanuel Phan M.D. Colon W/ Hemorrhage Hospitalists 414.00 Coronary Atherosclerosis Unspec Type Vessel [place]/Graft 401.9 Hypertension Unspec Office Visit 10/11/2014 [facility] 562.12 Diverticulosis 11:40a immanuel Phan M.D. Colon W/ Hemorrhage Hospitalists 414.00 Coronary Atherosclerosis Unspec Type Vessel [place]/Graft 401.9 Hypertension Unspec Office Visit 08/13/2014 Rheumatology Phillip Sheffield, 733.01 Osteoporosis 10:20a Services Of Flash Scott Senile 724.00 Spinal Stenosis Unspec Region 338.4 Chronic Pain Syndrome 715.09 Osteoarthrosis Generalized Multiple Sites Office Visit 07/06/2014 [facility] 578.9 Hemorrhage 12:48p immanuel Phan M.D. Gastrointestinal Hospitalists Tract Unspec 530.81 Esophageal Reflux 285.1 Anemia Posthemorrhagic Acute 276.8 Hypopotassemia Office Visit 07/05/2014 2:08p [facility] Austintayboumar SEladio 414.9 Ischemic Heart Tyler Gordon Disease Chronic Unspec 794.31 Electrocardiogram (ECG) (EKG) Abnormal 401.1 Hypertension Benign V45.82 Percutaneous Transluminal Coronary Angioplas Postsurg Status Office Visit 07/05/2014 [facility] 578.9 Hemorrhage 12:45p immanuel Phan M.D. Gastrointestinal Hospitalists Tract Unspec 276.8 Hypopotassemia 285.1 Anemia Posthemorrhagic Acute Office Visit 07/04/2014 [facility] 578.9 Hemorrhage 12:45p immanuel Phan M.D. Gastrointestinal Hospitalists Tract Unspec 530.81 Esophageal Reflux 285.1 Anemia Posthemorrhagic Acute 276.8 Hypopotassemia Office 07/03/2014 [facility] Oracio Steinberg 425.11 Hypertrophic Visit 3:45p Of Flash Danielle M.D., Obstructive FACC, FASNC Cardiomyopathy Office 07/03/2014 [facility] 578.9 Hemorrhage Visit 12:44p immanuel Phan M.D. Gastrointestinal Hospitalists Tract Unspec 584.9 Acute Kidney Failure, Unspecified 530.81 Esophageal Reflux 285.1 Anemia Posthemorrhagic Acute Office Visit 07/02/2014 [facility] Lucia 578.9 Hemorrhage 12:42p Assimmanuel clark, Gastrointestinal Hospitalists Tract Unspec 530.81 Esophageal Reflux 786.50 Pain Chest Unspec 285.1 Anemia Posthemorrhagic Acute Office Visit 07/02/2014 10:33a [facility] Jacquelyn Hans, 780.2 Syncope & Of Flash Scott Collapse 414.9 Ischemic Heart Disease Chronic Unspec Office Visit 07/01/2014 [facility] Lucia 578.9 Hemorrhage 12:42p Assoc,immanuel Cheek DO Gastrointestinal Hospitalists Tract Unspec 584.9 Acute Kidney Failure, Unspecified 530.81 Esophageal Reflux 285.1 Anemia Posthemorrhagic Acute Office Visit 06/30/2014 [facility] Naeem Reid, 578.9 Hemorrhage 12:41p Assoc,immanuel Scott Gastrointestinal Hospitalists Tract Unspec 530.81 Esophageal Reflux 285.1 Anemia Posthemorrhagic Acute Office Visit 06/29/2014 10:15a Orthopedic Virgil Spence 727.03 Trigger Finger Services Of Tyrone Scott Acquired 996.41 Mechanical Loosening Of Prosthetic Joint V43.65 Knee Replacement By Other Means Office Visit 06/15/2014 2:00p Orthopedic Virgil Spence 727.03 Trigger Finger Services Of Tyrone Scott Acquired 996.41 Mechanical Loosening Of Prosthetic Joint V43.65 Knee Replacement By Other Means Office Visit 05/27/2014 [facility] Anderson 414.01 Coronary 10:30a Cardiology Of Tyler Hartley Atherosclerosis [facility] [place] 401.9 Hypertension Unspec Office Visit 04/23/2014 Rheumatology [...] Stage III Moderate Office Visit 12/11/2013 1:45p [facility] Carson Anderson 786.50 Pain Chest Of Flash Hartley M.D. Unspec 401.9 Hypertension Unspec 414.01 Coronary Atherosclerosis [place] Office Visit 12/04/2013 Orthopedic Krystle 727.03 Trigger Finger 11:15a Services Of Tyler Crisostomo C.M.AEladio Office Visit 12/01/2013 Rheumatology Norbert Kidd, 715.09 [...] Not Elsewhere Class Office Visit 05/27/2013 1:45p [facility] Carson Anderson 786.50 Pain Chest Of Milk Powder Grinder AT [facility] Tyler Hartley Unspec 401.9 Hypertension Unspec 786.05 Shortness Of Breath Office Visit 05/12/2013 10:26a [facility] [place] 786.51 Pain Precordial Assoc,pc Jaskaran DAguilar Hospitalists 785.1 Palpitations 278.01 Obesity Morbid Office Visit 05/11/2013 10:26a [facility] [place] 786.51 Pain Precordial Assoc,pc Jaskaran D.O. Hospitalists 785.1 Palpitations 278.01 Obesity Morbid Office Visit 05/06/2013 11:15a Orthopedic Lula Ferrari 718.81 Derangement Joint Services Of JOSE Other Not C.M.A. Elsewhere Class Shoulder 726.10 Bursae & Tendon Disorders Shoulder Region Unspec 726.2 Shoulder Region Affections Other Not Elsewhere Class Office Visit 04/29/2013 1:15p [facility] Carson Anderson 786.50 Pain Chest Of Milk Powder Grinder AT [facility] [place] Tyler Hartley Unspec 786.05 Shortness Of Breath 414.01 Coronary Atherosclerosis [place] 401.9 Hypertension Unspec Office Visit 11/28/2012 11:15a Orthopedic Krystle Crisostomo 727.82 Calcium Services Of Tyler Deposits Tendon C.M.A. & Bursa 727.03 Trigger Finger Acquired 726.2 Shoulder Region Affections Other Not Elsewhere Class Office Visit 11/15/2012 10:15a [facility] Carson Anderson 414.9 Ischemic Heart Of Flash Hartley M.D. Disease Chronic Unspec 401.9 Hypertension Unspec Office Visit 07/16/2012 11:45a Orthopedic Services Billy Cantrell 719.45 Pain Joint Of C.M.A. Tyler Pelvic Region & Thigh 729.2 Neuralgia Neuritis & Radiculitis Unspec Office Visit 06/21/2012 10:15a Orthopedic Services Lula Ferrari 719.45 Pain Joint Of C.M.A. RPA-C Pelvic Region & Thigh 729.2 Neuralgia Neuritis & Radiculitis Unspec 719.45 Pain Joint Pelvic Region & Thigh Office Visit 04/01/2012 Orthopedic Virgil Spnece 727.82 Calcium Deposits 3:15p Services Of CEladioMMaria M Scott Tendon & Bursa Office Visit 02/14/2012 Orthopedic Lula Ferrari 726.31 Epicondylitis 10:15a Services Of C.M.A. RPA-C Medial Office Visit 01/26/2012 [facility] Renita 786.51 Pain Precordial 12:43p Assoc,immanuel De Jesus M.D. Hospitalists 414.01 Coronary Atherosclerosis [place] 401.9 Hypertension Unspec Office Visit 01/25/2012 12:43p [facility] Naeem Reid, 786.51 Pain Precordial Assoc,immanuel Scott Hospitalists 414.01 Coronary Atherosclerosis [place] 401.9 Hypertension Unspec 272.2 Hyperlipidemia Mixed Office Visit 11/20/2011 2:30p Orthopedic Lula 726.31 Epicondylitis Medial Services Of Vonda RPA-C C.M.A. Office Visit 09/20/2011 8:15a Orthopedic Virgil Spence 726.11 Tendinitis Services Of Tyler Calcifying Shoulder C.M.A. Office Visit 06/02/2011 3:45p Orthopedic Dirk Jordy, 715.96 Osteoarthrosis Services Of M.D. Unspec Genlzd Or C.M.A. Localized Lower Leg Office Visit 09/07/2010 2:45p Orthopedic Virgil Spence, 719.06 Effusion Joint Lower Services Of M.D. Leg C.M.A. 996.41 Mechanical Loosening Of Prosthetic Joint Office Visit 02/23/2010 2:30p Orthopedic Virgil Spence 996.41 Mechanical Services Of M.D. Loosening Of C.M.A. Prosthetic Joint Office Visit 02/16/2010 9:00a Orthopedic Virgil Spence 996.41 Mechanical Services Of M.D. Loosening Of C.M.A. Prosthetic Joint 719.46 Pain Joint Lower Leg Office Visit 11/01/2009 DO Not Use Milk Powder Grinder Jamisonananda, 272.4 Hyperlipidemia Other 10:00a AT Sybil Sol MD Unspec 414.01 Coronary Atherosclerosis [place] Office Visit 10/14/2009 10:00a DO Not Use Milk Powder Grinder Jamisonananda, 530.81 Esophageal AT Sybil Sol MD Reflux 599.0 UTI Urinary Tract Infection Site Not Spec 272.4 Hyperlipidemia Other Unspec Office Visit 07/09/2009 1:20p DO Not Use Milk Powder Grinder Stevanovic, 112.1 Candidiasis The AT Sybil Mendieta M.D. 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 Unspec Hospitalists Office Visit 04/30/2009 2:30a [facility] Renita 786.50 Pain Chest Assoc,immanuel De Jesus M.D. Unspec Hospitalists 401.9 Hypertension Unspec Office Visit 04/29/2009 2:15a [facility] 786.50 Pain Chest Unspec Assoc,immanuel De Jesus M.D. Hospitalists Office Visit 04/19/2009 3:00p Neurosurgery Rob Johnson 721.[address] [facility] Tyler Salguero Cervical W/O Myelopathy Office Visit 03/22/2009 9:40a DO Not Use Milk Powder Grinder AT Eusebio Barroso.42 Sleep Disorder Sybil Mendieta M.D. 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 Cervical W/O Myelopathy Office Visit 01/08/2009 11:00a DO Not Use Milk Powder Grinder Eusebio Barroso.42 Sleep Disorder AT Sybil Mendieta M.D. 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 Mellitus W/O Compl Type II Or Unspec Controlled 278.00 Obesity Unspec 401.9 Hypertension Unspec 272.4 Hyperlipidemia Other Unspec 716.86 Arthropathy Other Spec Lower Leg 530.81 Esophageal Reflux 414.01 Coronary Atherosclerosis [place] 412 Myocardial Infarction Old 565.0 Anal Fissure Plan of Treatment Future Appointment(s):03/12/2018 11:30 am - Patience Davila PA-C at [facility]03/12/2018 11:30 am - Stephen Calixto M.D. at [facility]04/15/2018 11:30 am - RAY Pak at [facility]02/27/2018 - Stephen Calixto M.D.M48.04 Spinal stenosis, thoracic regionFollow up:Schedule surgery for 03/12 Thoracic Decompressive Laminectomy T10-T11
--- OUTSIDE RECORDS SUMMARY | 2018-03-13 15:40 | XMS REPORT | Continuity of Care Document ---
:1935 External Reference #:[id number] Author Name Rose Mariedayna Alicia Care Team Providers Name Role Phone [facility] Primary Care Physician Unavailable Payers Type Date Identification Numbers Payment Provider Subscriber Effective: Policy Number: [id number] Medicare Deion Perdomo 1987 PayID: [id number] [facility] [address] [place] [address] Effective: 2017 Policy Number: [id number] [facility] Deion Perdomo Expires: 2018 Group Number: [id number] PayID: [id number] [facility] [address] [place] [address] Advance Directives Description No Information Available Problems [...] apnea syndrome Melony Noriega DNP, RN, Active [employer] INTERACTION DESIGNER-BC Onset: 09/29/2016 Hypersomnia Melony Noriega DNP, RN, Active [employer]X INTERACTION DESIGNER-BC Onset: 01/20/2018 Walking disability Jailene Mitchell MD Active Onset: 01/20/2018 Morbid obesity Jailene Mitchell MD Active Onset: 01/20/2018 Type 2 diabetes mellitus Jailene Mitchell MD Active Onset: 01/20/2018 Malaise and fatigue Jailene Mitchell MD Active Onset: 01/20/2018 Type 2 diabetes mellitus with Jailene Mitchell MD Active diabetic neuropathy, unspecified Onset: 01/22/2018 Anemia Rachel Medellin NP Active Onset: 01/22/2018 Shoulder joint pain Rachel eMdellin NP Active Onset: 01/22/2018 Spinal stenosis of [...] mg sc M81.0 Zsofia 2017 q6mon [place], UX INTERACTION DESIGNER Rollator Walker 06/04/ Active use as Krystle 2018 needed Tyler Crisostomo Vitamin A 03/30/ Active Capsules [id number] 1 daily Zsofia 2018 [place], UX INTERACTION DESIGNER Diltiazem HCL 01/17/ Active Caps ER 180mg 90caps 1 po qd Carson Anderson ER 2017 24HR Tyler Hartley Calcium 09/13/ Active Tablets 600-800mg- 60tabs 1 by M81.0 Zsofia 600/Vitamin D3 2016 Unit mouth [place]ez, twice a UX INTERACTION DESIGNER day Prolia 09/12/ Active Solution 60mg/ml 60mg 60 mg sc M81.0 Zsofia 2016 q6mon [place]ez, UX INTERACTION DESIGNER Ibuprofen 08/16/ Active Tablets 800mg 60tabs 1 tab by M54.32 Zsofia 2017 mouth [place]ez, three UX INTERACTION DESIGNER times a day with food as needed Triamcinolone 02/27/ Active Lotion 0.025% 60ml use on R21 Zsofia Acetonide 2016 affected [place]ez, area 2x UX INTERACTION DESIGNER daily as needed Nitrostat 12/31/ Active Tablets 0.4mg 25tabs one sl Carson Anderson 2012 Sub q5min up Naeem, to 3 M.D. doses prn, if no relief call 911 Simvastatin 12/16/ Active Tablets 20mg 90tabs 1 tablet 250.00 hCio 2008 at bed , ekaterina Mendieta M.D. [...] tab 250.00 Unknown Chloride 0000 daily Valacyclovir 00/ Active Tablets 500mg 60tabs take 1 Unknown HCL 0000 tablet by mouth twice a day Travatan Z / Active Solution 0.004% one drop Unknown 0000 in each eye at Omeprazole / Active Capsules 20mg 1 cap [...] 09/12/ Hx Tablets 1000-800mg 90tabs 1 by [email or web address] Nadine Seaman 2016 - -Unit mouth [place]ez, 09/21/ every day UX INTERACTION DESIGNER 2016 Calcium 600 09/06/ Hx Tablets 600mg 180tab 1 tab by Albert0 Nadine 2015 - s mouth 2x Cortez, 09/12/ daily UX INTERACTION DESIGNER 2016 Percocet 04/19/ Hx Tablets 5-325mg 80tabs 1 by [id number] Virgil 2015 - mouth Jordy, 09/06/ every 6 M.DEladio 2016 hours as needed pain Fiber 08/13/ Hx Tablets 625mg 60tabs 5 by Phillip 2014 - mouth Tyler Sheffield 10/21/ daily 2016 Duloxetine HCL 04/16/ Hx Caps 20mg 60caps 2 729.1 Phillip 2014 - Part together Tyler Sheffield 05/24/ by mouth 2014 day Prolia 01/14/ Hx Solution 60mg/ml 60mg 60 mg sc M81.0 Norbert 2013 - q6mon Tyler Kidd 2016 M81.0 Caltrate 01/14/2014 Hx Tablets [id number] 60tabs 1 po bid 733.00 Norbert 600+D [...] ic, 08/11/2009 y in [place], vagina for Tyler days Cipro 05/24/2009 Hx Tablets 250mg 20tabs [...] a day Duloxetine HCL - Hx Caps 30mg 30caps 1 by mouth Unknown 05/24/2014 [...] for three days Duloxetine HCL - Hx Ava LUTZ Part 30mg Dilip, 06/13/2016 RAY Ortiz-BC Sulfamethoxazole/Tri - [...] Prolia Administered Injection Zsofia Injection, 017 Cortez, UX INTERACTION DESIGNER Denosumab, 1MG Depomedrol Administered Injection Dirk Jordy, 40MG 017 MEladioDEladio Depomedrol Administered Injection Dirk Jordy, 40MG 017 MKindra Prolia Administered Injection Nurse Visit Injection, 017 C Denosumab, 1MG Prolia Administered Injection Zsofia Injection, 016 Cortez, UX INTERACTION DESIGNER Denosumab, 1MG Inj, Administered Injection Carson D. Regadenoson, 016 Tyler Hartley 0.1 MG Technetium TC Administered Injection Carson Anderson 99M 016 Tyler Hartley Tetrofosmin, Per Unit Dose Up To 40 Millicuries Prolia Administered Injection Phillip Injection, 015 EndoTyler Denosumab, 1MG Prolia Administered Injection Phillip Injection, 015 EndoJetDEladio Denosumab, 1MG Depomedrol Administered Injection Dirk Jordy, 20MG 015 Tyler Depomedrol Administered Injection Billy 80MG 015 Tyler [...] Depomedrol Administered Injection Dirk Jordy, 80MG 012 JetDEladio Immunizations CPT Code Status Date Vaccine Lot # [id number] Given 12/23/2008 Zoster (Zostavax) Vital Signs Date [...] Result H/L Range Note Laboratory test 11/22/2017 [facility] Calcium 5.08 mg/dL N 4.65-5.[address] [place] [address] [phone] Pthi 11/22/2017 [facility] Calcium (PTH 9.8 mg/dL N 8.6-10.3 DRIVE Intact) [place] [address] [phone] PTH Intact 3.3 pmol/L N 1.3-9.3 Laboratory test 11/22/2017 [facility] Vitamin D 50.8 ng/mL High 20-[address] Total 25(Oh) [place] [address] [phone] Comp Metabolic 2017 [facility] Sodium 135 mmol/L N 133- [address] [place] [address] [phone] Potassium 4.0 mmol/L N 3.5-5.0 Chloride 99 [...] 45.4 >60 1 Total Protein 24HR 2017 [facility] Urine Collection Time [address] [place] [address] [phone] Urine Total Volume 1600 mL Urine Random Total Protein 19 mg/dL Urine Total Protein/24HR 304 mg/24Hr High 0-165 Creatinine 2017 [facility] Creatinine 1.44 mg/dL High 0.51-0.[address] [place] [address] [phone] Urine Collection Time 24 Urine Total Volume 1600 mL Urine Random Creatinine 70.42 mg/dL Creatinine Clearance 54 mL/min Low 88-128 Laboratory test 03/22/2016 [facility] Vitamin D 40.0 ng/mL N 30-50 2, [address] Total 25(Oh) [place] [address] [phone] Comp Metabolic 03/22/2016 [facility] Sodium 137 mmol/L N 133- [address] [place] [address] [phone] Potassium 3.8 mmol/L N 3.5-5.0 Chloride 98 [...] Egfr 40.1 N >60 4 Pthi 03/22/2016 [facility] Calcium (PTH Intact) 9.9 mg/dL N 8.6-10.[address] [place] [address] [phone] PTH Intact 4.2 pmol/L N 1.3-9.3 Laboratory test 03/22/2016 [facility] Vitamin D, 1,25 43 pg/mL N 18-78 [address] [place] [address] [phone] Laboratory test 12/15/2015 [facility] Vitamin D Total 38.1 ng/ mL N 30-50 [address] 25(Oh) [place] [address] [phone] Pthi 12/15/2015 [facility] Calcium (PTH 9.8 mg/dL N 8.6-10.[address] Intact) [place], [place] [phone] PTH Intact 4.3 pmol/L N 1.3-9.3 Comp Metabolic Panel 12/15/2015 [facility] Sodium 138 mmol/L N 133-[address] [place] [address] [phone] Potassium 3.9 mmol/L N 3.5-5.0 Chloride 101 [...] 40.4 N >60 7 PTH, Intact 09/03/2015 [facility] Calcium (PTH 9.8 mg/dL N 8.6 -10.[address] Intact) [place] [address] [phone] PTH Intact 8.3 pmol/L N 1.3-9.3 Laboratory test 09/03/2015 [facility] Vitamin D 29.0 ng/mL Low 30-[address] Total 25(Oh) [place] [address] [phone] Vitamin D, 1,25 Dihydroxy 53 pg/mL N 18-78 8 Phosphorus 3.5 mg/dL N 2.5-5.0 Calcium Ionized 4.77 mg/dL N 4.65-5.28 CMP Panel 09/03/2015 [facility] Sodium 136 mmol/L N 133-[address] [place] [address] [phone] Potassium 3.6 mmol/L N 3.5-5.0 Chloride 101 [...] Egfr 50.5 N >60 9 Hemoglobin/Hematacrit 01/18/2015 [facility] Hemoglobin 8.0 Low 12.0-16.[address] g/[place] [address] [phone] Hematocrit 25 % Low 35-47 CBC Auto Diff 05/06/2014 [facility] White Blood 7.2 10^3/uL N 4.8-10.[address] [place] [address] [phone] Red Blood Count 4.22 10^6/uL N 4.0-5.4 [...] % 0 N Comp Metabolic Panel 05/06/2014 [facility] Sodium 139 mmol/L N 133-[address] [place] [address] [phone] Potassium 4.1 mmol/L N 3.5-5.0 Chloride 102 [...] 47.4 N >60 10 Laboratory test 05/06/2014 [facility] C Reactive 4.35 mg/L N < 5.00 [address] [place] [address] [phone] Erythrocyte Sed Rate 45 mm/Hr High 0-40 Urinalysis Profile 03/09/2014 [facility] Urine Color Yellow N [address] [place] [address] [phone] Urine Appearance Cloudy N Urine Specific [place] 1.013 N 1.010-1.030 Urine pH 8.0 N [...] Present Abnormal Absent Urine Culture And 03/09/2014 [facility] Urine Culture (SEE NOTE ) [address] [place] [address] [phone] Vitamin D, 25 12/29/2013 [facility] 25-Hydroxy <4.0 ng/mL N Hydroxy [address] Vitamin D2 [place] [address] [phone] 25-Hydroxy Vitamin D3 29 ng/mL N 25-Hydroxy Vitamin D Total 29 ng/mL N 13 Protein 12/29/2013 [facility] Total 7.8 g/dL N 6.3 - Electrophoresis [address] Protein(Pep) 7.9 [place] [address] [phone] Albumin 3.6 g/dL N 3.4-4.7 Alpha-1 Globulin 0.3 g/dL N 0.1-0.3 Alpha-2 Globulin 1.1 g/dL Abnormal 0.6-1.0 Beta Globulin 1.1 g/dL N 0.7-1.2 Gamma Globulin 1.8 g/dL Abnormal 0.6-1.6 Albumin/Globulin Ratio 0.84 N Impression See Comment N 14 Pthi 12/29/2013 [facility] PTH Intact 14.6 pmol/L High 1.3- 9.3 [address] [place] [address] [phone] Calcium (PTH Intact) 9.2 mg/dL N 8.6-10.3 RBC Leukoreduced 09/22/2010 [facility] RBC Leukoreduced [id number] [address] [address] O <SEE NOTE> [place] [address] [phone] Patient Blood Type O POSITIVE Antibody Screen NEGATIVE Laboratory test 09/22/2010 [facility] Release Date 09/25/10 16 finding [address] [place] [address] [phone] Hemoglobin/Hemata 09/21/2010 [facility] Hemoglobin 10.0 g/dL Low 12.0-1 crit 101 [facility] ER 6.0 [place] [address] [phone] Hematocrit 30 % Low 35-47 Basic Metabolic Panel 09/21/2010 [facility] Sodium 138 mmol/L 135-145 [address] [place] [address] [phone] Potassium 3.8 mmol/L 3.5-5.0 Chloride 98 mmol/L Low 101-111 Co2 (Carbon Dioxide) 34.0 mmol/L High 22-32 Anion Gap 6.0 mmol/L 2-11 17 Glucose 107 mg/dL High 70-100 BUN 17 mg/dL 6-24 Creatinine 1.00 mg/dL 0.50-1.40 One Over Creatinine 1.00 BUN/Creatinine Ratio 17.0 8-20 Calcium 8.0 mg/dL Low 8.1-9.9 eGFR Non- 54.3 > 60 eGFR 69.9 > 60 18 Laboratory test 09/12/2010 [facility] Release Date 09/23/10 19, 20 finding [address] [place] [address] [phone] Sensitivities For 09/12/2010 [facility] Ampicillin >=32 R Urine Culture [address] [place] [address] [phone] Amikacin <=2 S Ciprofloxacin >=4 R Ceftriaxone <=1 S Cefazolin <=4 S Nitrofurantoin <=16 S Gentamicin <=1 S Imipenem <=1 S Levofloxacin 4 I Trimeth-Sulfa >=320 R Ceftazidime <=1 S Tigecycline <=0.5 S Piperacillin/Tazobactam KB 30 S Urine Culture & 09/12/2010 [facility] Urine Culture ESCHERICHIA [address] [place] [address] [phone] Laboratory test 09/12/2010 [facility] Erythrocyte Sed 67 MM/HR High 0-[address] Rate 0 [place] [address] [phone] Manual 09/12/2010 [facility] Polysegmented 76 % 38- Differential [address] Neutrophil 83 [place] [address] [phone] Lymphocyte 20 % Low 25-47 Monocyte 3 % 0-13 Eosinophil 1 % 0-6 Absolute Neutrophil Count 8.2 Anisocytosis SLIGHT Stomatocytes 1+ CBC Auto Diff 09/12/2010 [facility] White Blood 10.8 CUMM 4.8 -10.[address] [place] [address] [phone] Red Cell Count 3.92 CUMM Low 4.2-5.4 Hemoglobin 11.6 g/dL Low 12.0-16.0 Hematocrit 36 % 35-47 Mean Corpuscular Volume 91 um3 79-97 Mean Corpuscular Hemoglob 29 pg 27-31 Mean Corpuscular HGB Cone 32 g/dL 32-36 Redcell Distribution WDTH 15 % 10.5-15 Platelet Count 294 CUMM 150-450 Mean Platelet Volume 7.8 um3 7.4-10.4 22 Laboratory test 09/12/2010 [facility] C Reactive 1.7 mg/dL High Less Than finding [address] Protein 0.5 [place] [address] [phone] Basic Metabolic 09/12/2010 [facility] Sodium 138 mmol/L 135- [address] [place] [address] [phone] Potassium 3.6 mmol/L 3.5-5.0 Chloride 101 mmol/L 101-111 Co2 (Carbon Dioxide) 29.0 mmol/L 22-32 Anion Gap 8.0 mmol/L 2-11 23 Glucose 98 mg/dL 70-100 BUN 27 mg/dL High 6-24 Creatinine 0.87 mg/dL 0.50-1.40 One Over Creatinine 1.10 BUN/Creatinine Ratio 31.0 High 8-20 Calcium 9.5 mg/dL 8.1-9.9 eGFR Non- 63.8 > 60 eGFR 82.1 > 60 24 Type And Screen 09/12/2010 [facility] Patient Blood O POSITIVE (Pre-Adm) [address] [place] [address] [phone] Antibody Screen NEGATIVE Specimen Discard Date 09/26/10 25 RBC Leukoreduced [id number] O <SEE NOTE> 26 RBC Leukoreduced [id number] O <SEE NOTE> 27 Laboratory test 09/12/2010 [facility] PTT (Aptt) 29.6 25.15- 38.[address] [place] [phone] Protime 09/12/2010 [facility] Inr 0.94 0.82-1.[address] [place] [phone] Protime 11.1 SEC 10.2-14.8 29 Urinalysis W/Microscopic 09/12/2010 [facility] Ua Color YELLOW Yellow [address] [place] [phone] Appearance-Urine CLOUDY Clear Specific [place]-Ur 1.024 1.010-1.030 Esterase-Urine 3+ Abnormal Negative Nitrite NEGATIVE Negative Tdaaatygmltk-Ak-VKR NEGATIVE Negative Protein-Urine 1+ Abnormal Negative PH-Urine 6.0 5-9 Blood-Urine 3+ Abnormal Negative Ketones-Urine NEGATIVE Negative Bilirubin-Ur NEGATIVE Negative Glucose-Urine NEGATIVE Negative WBC-Urine TNTC Abnormal 0-5 RBC-Urine 2-5 0-2 Epith Cells-Ur FEW None Bacteria-Urine 4+ None Lipid Profile 10/22/2009 [facility] Triglyceride 160 mg/dL 40 -200 (Trig/Chol/HDL) [address] [place] [address] [phone] Cholesterol 167 mg/dL Less Than 200 30 High Density Lipoprotein 57 mg/dL 40-60 31 Cholesterol/HDL Ratio 2.93 AVERAGE 1-4.44 Low Density Lipoprotein 78 mg/dL Less Than 100 32 Laboratory test 10/22/2009 [facility] TSH 2.82 MIU/ML 0.34- 5.[address] [place] [address] [phone] Comp Metabolic 10/22/2009 [facility] Sodium 138 mmol/L 135- [address] [place] [address] [phone] Potassium 4.9 mmol/L 3.5-5.0 Chloride 104 mmol/L [...] > 60 37 CBC With Manual 10/22/2009 [facility] White Blood 8.3 CUMM 4.8-10.[address] [place] [address] [phone] Red Cell Count 4.52 CUMM 4.2-5.4 Hemoglobin [...] 5.1 RBC Morphology NORMAL Urinalysis W/Microscopic 07/09/2009 [facility] Ua Color YELLOW Yellow [address] [place] [address] [phone] Appearance-Urine CLEAR Clear Specific [place]-Ur 1.017 1.010-1.030 Esterase-Urine 1+ Abnormal Negative Nitrite NEGATIVE Negative Hsxddhuzdraj-Fr-MSY NEGATIVE Negative Protein-Urine NEGATIVE Negative PH-Urine 6.0 5-9 Blood-Urine 2+ Abnormal Negative Ketones-Urine NEGATIVE Negative Bilirubin-Ur NEGATIVE Negative Glucose-Urine NEGATIVE Negative WBC-Urine 0-2 0-5 RBC-Urine 0-2 0-2 Epith Cells-Ur FEW None Ua Comments (SEE NOTE) 38 Urine Culture & 07/09/2009 [facility] Urine Culture NG 39 S[address] [place] [address] [phone] Laboratory test 07/09/2009 [facility] Hemoglobin A1c 5.8 5-7 finding Urinalysis 05/22/2009 [facility] Ua Color RED Yellow W/Microscopic [address] [place] [address] [phone] Appearance-Urine TURBID Clear Specific [place]-Ur 1.007 Low 1.010-1.030 Esterase-Urine 3+ Abnormal Negative Nitrite POSITIVE Abnormal Negative Sfydiksihkat-Gs-UUB NEGATIVE Negative Protein-Urine 3+ Abnormal Negative PH-Urine 6.0 5-9 Blood-Urine 3+ Abnormal Negative Ketones-Urine 1+ Abnormal Negative Bilirubin-Ur SEE ICTOTEST Abnormal Negative Glucose-Urine NEGATIVE Negative WBC-Urine TNTC Abnormal 0-5 RBC-Urine 3-5 0-2 Mucus Urine SMALL None Epith Cells-Ur FEW None Bacteria-Urine 3+ None Laboratory test 05/22/2009 [facility] Ictotest-Urine NEGATIVE [address] [facility] [place] [address] [phone] Urine Culture & 05/22/2009 [facility] Urine Culture SN1 [address] [facility] [employer] [facility] [place] [address] [phone] MRSA/Vre Screen 05/02/2009 [facility] MRSA/Vre Culture NFICU [address] [facility] [place] [address] [phone] CBC With Manual 05/01/2009 [facility] White Blood Count 9.0 CUMM 4.8-[address] 0.8 [place] [address] [phone] Red Cell Count 4.47 CUMM 4.2-5.4 Hemoglobin [...] 5.9 Anisocytosis SLIGHT CMP Panel Stat 05/01/2009 [facility] Sodium 138 mmol/L 135- [address] [place] [address] [phone] Potassium 3.9 mmol/L 3.5-5.0 Chloride 101 mmol/L [...] 57.0 > 60 47 Laboratory test 05/01/2009 [facility] Troponin-I (TnI) 0.04 NG/ ML [address] [place] [address] [phone] CBC With 04/29/2009 [facility] White Blood 8.2 CUMM 4.8-10 Electronic Diff [address] Count .8 [place] [address] [phone] Red Cell Count 4.76 CUMM 4.2-5.4 Hemoglobin [...] 0 0-0.2 49 Comp Metabolic Panel 04/29/2009 [facility] Sodium 137 mmol/L 135-[address] [place] [address] [phone] Potassium 3.2 mmol/L Low 3.5-5.0 Chloride 98 [...] 61.0 > 60 54 Laboratory test 04/29/2009 [facility] Troponin-I (TnI) 0.02 NG/ ML [address] [place] [address] [phone] Magnesium Stat 04/29/2009 [facility] Magnesium 2.1 mg/dL 1.7- 2. [address] 6 [place] [address] [phone] Amylase Stat 04/29/2009 [facility] Amylase 52 U/L 30-[address] [place] [address] [phone] Laboratory test 04/29/2009 [facility] Lipase 25 U/L 22-[address] [place] [address] [phone] Protime Stat 04/29/2009 [facility] Inr 0.97 0.97-[address] [place] [address] [phone] Protime 11.4 SEC Low 11.5-12.2 57 PTT (Aptt) 04/29/2009 [facility] PTT (Aptt) 32.5 25.15-38.[address] [place] [address] [phone] Laboratory 04/29/2009 [facility] D Dimer < 200 Less Than 230 test finding [address] Quantitative [place], [place] [address] [phone] BNP Evaluatr 37.0 pg/mL 0-100 Surgical 01/22/2009 [facility] Surgical [address] Pathology <SEE NOTE> [place] [address] [phone] PTT (Aptt) 01/04/2009 [facility] PTT (Aptt) 28.2 25.[address] 5-38 [place] [address] .53 [phone] Protime Stat 01/04/2009 [facility] Inr 0.[address] -1.1 [place] [address] [phone] Protime 12.1 SEC 10.7-13.6 62 Laboratory test 01/04/2009 [facility] Troponin-I (TnI) 0.02 NG/ ML [address] [place] [address] [phone] Magnesium Stat 01/04/2009 [facility] Magnesium 2.3 mg/dL 1.7- 2. [address] 6 [place] [address] [phone] CMP Panel Stat 01/04/2009 [facility] Sodium 136 mmol/L 135- [address] 5 [place] [address] [phone] Potassium 3.7 mmol/L 3.5-5.0 Chloride 97 mmol/L [...] 47.7 > 60 68 CBC With 01/04/2009 [facility] White Blood 9.2 CUMM 4.8-10.8 Electronic Diff [address] [place] [address] [phone] Red Cell Count 4.44 CUMM 4.2-5.4 Hemoglobin [...] Abs Basophils 0 0-0.2 Laboratory test 01/01/2009 [facility] Hemoglobin A1c 6.4 % High Less [address] Than 6.0 [place] [address] [phone] Urine 01/01/2009 [facility] Microalbumin 40.[address] (MG/L) mg/[place] [address] [phone] Urine Creatinine 138.18 mg/dL Fortunato Alb/Creatinine Ratio 28.9 UG/MG Less Than 30 70 Lipid Profile 01/01/2009 [facility] Triglyceride 64 mg/dL 40- 200 (Trig/Chol/HDL) [address] [place] [address] [phone] Cholesterol 174 mg/dL Less Than 200 71 High Density Lipoprotein 70 mg/dL High 40-60 72 Cholesterol/HDL Ratio 2.49 AVERAGE 1-4.44 Low Density Lipoprotein 91 mg/dL Less Than 100 73 Comp Metabolic Panel 01/01/2009 [facility] Sodium 139 mmol/L 135-[address] [place] [address] [phone] Potassium 4.0 mmol/L 3.5-5.0 Chloride 102 mmol/L [...] 57.0 > 60 78 CBC With 01/01/2009 [facility] White Blood 15.4 CUMM High 4.8- 10.8 Manual Diff [address] [place] [address] [phone] Red Cell Count 4.71 CUMM 4.2-5.4 Hemoglobin [...] developed and its performance characteristics determined by [facility] in a manner consistent with CLIA requirements. This test has not been cleared or approved by the U.S. Food and Drug Administration. Test Performed by: [place] [address] Community Organization Aide: Yayo Harding II, M.D., Ph.D. 6 standing [...] <15 (or dialysis) 8 Test Performed by: [facility] - [address] [address] Community Organization Aide: Yayo Harding II, M.D., Ph.D. 9 Because [...] Acute inflammation: >10.00 12 RUN DATE: 03/11/14 [facility] LAB LIVE PAGE 1 RUN TIME: 1592 [address] [place], [place] [address] Specimen Inquiry Name: DEION PERDOMO : [address]: Anam Barroso MD Acct: [id number] Unit: [id number] AGE: 78 Location: LAB Re03/09/14 SEX: F Status: REG REF SPEC: [id number] HELLEN: 03/09/14-1045 [facility] DR: Anam Barroso MD PC REQ: [id number] RECD: 03/09/14 STATUS: WILL GREWAL DR: Norbert Kidd MD _ SOURCE: URINE SPDESC: ORDERED: Urine Culture QUERIES: Medent Number [id number] Procedure Result Verified Site Urine Culture Final 03/11/14- 1108 ML Organism 1 NORMAL RONAL [place] Count >100,000 (Many) CFU/ML END OF REPORT * ML=Testing performed at Main Lab DEPARTMENT OF PATHOLOGY, [address] [place] [address] Chase Moore M.D. Director [facility] # [id number] 13 REFERENCE VALUE 25-HYDROXY D TOTAL (D2+D3) Optimum levels in the healthy population are 20-50, patients with bone disease may benefit from higher levels within this range. Test Performed by: [place] [address] Community Organization Aide: Saran Lomax M.D. 14 RESULT: Polyclonal hypergammaglobulinemia Test Performed by: [place] [address] Community Organization Aide: Saran Lomax M.D. 15 [id number] OP PC TRANSFUSED 09/22/10 1356 16 ANY [...] 3 DAYS OF THE SURGERY DATE. 26 [id number] OP PC TRANSFUSED 09/20/101135 27 [id number] OP PC TRANSFUSED 09/20/10 1136 28 Recommended [...] change was based on recommendations from the [place] [employer]. 35 Please note change in [...] change was based on recommendations from the [place] [employer]. 45 Please note change in [...] 0.06 ng/mL NOT SUPPORTIVE OF DIAGNOSIS OF [place] 0.06 - 0.50 ng/ml INDETERMINATE: SUGGEST SERIAL STUDIES IF CLINICALLY INDICATED. Greater than 0.5 ng/mL CONSISTENT WITH DIAGNOSIS OF [place] . 49 NRBC 50 Anion gap measurement may be of limited value in the presence of any alkalosis, especially in a combined acid base disorder. . 51 Note change in reference range as of 11/14/07. The change was based on recommendations from the [place] [employer]. 52 Please note change in [...] 0.06 ng/mL NOT SUPPORTIVE OF DIAGNOSIS OF [place] 0.06 - 0.50 ng/ml INDETERMINATE: SUGGEST SERIAL STUDIES IF CLINICALLY INDICATED. Greater than 0.5 ng/mL CONSISTENT WITH DIAGNOSIS OF [place] . 56 Recommended INR for Patients on Oral Anticoagulants Prophylaxis 2.0 - 3.0 Treatment of thrombosis 2.0 - 3.0 Prevention of embolism 2.0 - 3.0 Prevention of embolism from prosthetic heart valves 2.5 - 3.5 57 DIAGNOSIS,TREATMENT,AND THERAPY MUST BE BASED ON THE INR VALUE ALONE. 58 PLEASE NOTE NEW REFERENCE RANGE EFFECTIVE 08. 59 ---- RUN DATE: 01/25/09 [facility] NMI LIVE PAGE 1 RUN TIME: 1346 Specimen Inquiry RUN USER: INTERFACE -- Name: DEION GONZALEZ Status: REG REF Re01/22/09 Age/Sex: 73/F Unit#: [id number] Location: [facility]. : 37 -- Specimen: [id number] SOUT Spec Date: 01/22/09 [facility] Dr: Pilo ferreira MD Spec Type: SURGICAL P Received: 01/22/09-2894 Copies to: Anam garcia MD SPECIMEN BIOPSY RIGHT COLON POLYP HISTORY POST-OP DIAGNOSIS: Small polyp removed CLINICAL INFORMATION: Rectal bleeding, history of polyp, removed 2006 GROSS DESCRIPTION Specimen received in formalin labelled Deion Conor Aguirre, Right Colon Polyp and consists of several fragments of thomson-brown tissue measuring in aggregate 1.0 x 1.0 x 0.4 cm. Submitted entirely, one cassette. DIAGNOSIS Colon, right, biopsy: A. Tubular adenoma. B. No high grade dysplasia or malignancy. Signed Electronically by: CHASE MOORE MD 01/25/09 1344 -- -- DEPARTMENT OF PATHOLOGY, [address] [place] [address] [facility] Permit #[id number] Tyler Calvert M.D. Laborer [place]bark Dir sara -- 62 PLEASE NOTE NEW [...] 0.06 ng/mL NOT SUPPORTIVE OF DIAGNOSIS OF [place] 0.06 - 0.50 ng/ml INDETERMINATE: SUGGEST SERIAL STUDIES IF CLINICALLY INDICATED. Greater than 0.5 ng/mL CONSISTENT WITH DIAGNOSIS OF [place] . 64 Anion gap measurement may be of limited value in the presence of any alkalosis, especially in a combined acid base disorder. . 65 Note change in reference range as of 11/14/07. The change was based on recommendations from the [place] [employer]. 66 Please note change in reference range effective 07 . 67 A metabolite of Naproxen, O-desmethylnaproxen, has been shown to interfere with the Jendrassik-Roberts method for measuring total bilirubin. Samples from [...] IN SELECTIVE PATIENTS <6.0%. PLEASE REFER TO [employer] [place] [employer] DIABETIC CARE GUIDELINES FOR FURTHER [...] change was based on recommendations from the [place] [employer]. 76 Please note change in [...] dialysis) Procedures Date Code Description Status 01/16/2018 72203 EKG Tracing & Interpretation Completed 12/26/201771625 Inject/Drain Joint/Bursa Major W/O US Completed 12/10/2017 75060 Admin Of Inj Completed 10/22/2017 329206325 Bone Mineral Density Test Completed 08/16/201772080 Inject/Drain Joint/Bursa Major W/O US Completed 06/04/2017 15861 Injection Single Tendon Origin/Insertion Completed 06/04/201771394 Inject/Drain Joint/Bursa Major W/O US Completed 04/13/2017 00473 Admin Of Inj Completed 01/17/2017 20035 EKG Tracing & Interpretation Completed 10/25/2016 51274 Polysomnography Sleep Staging 4+ Parameters W/Cpap Completed 09/12/2016 83914 Admin Of Inj Completed 09/06/2016 09542 Polysomnography Sleep Staging 4+ Parameters Completed 06/14/2016 64797 EKG Tracing & Interpretation Completed 05/03/2016 01341 Inject/Drain Joint/Bursa Major W/O US Completed 05/03/2016 60005 Inject/Drain Joint/Bursa Intermediate W/O US Completed 04/10/2016 79989 Chemotherpy Admin Subcutaneous/Im Non-Hormonal Completed Anti-Neoplastic 04/10/2016 89491 Admin Of Inj Completed 09/10/2015 809497213 Bone Mineral Density Test Completed 09/07/2015 24669 Chemotherpy Admin Subcutaneous/Im Non-Hormonal Completed Anti-Neoplastic 07/29/2015 51132 Stress Test Completed 07/29/2015 08924 Myocardial Perfusion Imaging Tomographic (Spect) Completed Multiple Studies 07/16/2015 30945 EKG Tracing & Interpretation Completed 02/15/2015 85906 Chemotherpy Admin Subcutaneous/Im Non-Hormonal Completed Anti-Neoplastic 12/22/2014 21111 Trigger Finger Release Incision / Tendon Sheath Completed Incision 12/22/2014 43436 Trigger Finger Release Incision / Tendon Sheath Completed Incision 12/11/2014 14855 EKG Tracing & Interpretation Completed 08/13/2014 71522 Admin Of Inj Completed 07/06/2014 18669 Treadmill Interp/Report Only Completed 07/06/2014 38345 Stress Test Supervsn W/Out I/R Completed 07/02/2014 06599 ECHO Transthorasic Realtime 2D W Doppler & Color Flow Completed [facility] 07/02/2014 63896 EKG, Interpretation Only Completed 07/01/2014 35446 EKG, Interpretation Only Completed 07/01/2014 06523 EKG, Interpretation Only Completed 06/15/2014 23770 Inject Tendon Sheath Or Ligament Aponeurosis Eg Completed Plantar Fascia 04/09/201415578 Inject/Drain Joint/Bursa Major W/O US Completed 01/28/2014 88312 Admin Of Inj Completed 12/29/2013 33619334 Mammogram Completed 12/29/2013 150551300 Bone Mineral Density Test Completed 12/04/2013 23411 Inject Tendon Sheath Or Ligament Aponeurosis Eg Completed Plantar Fascia 11/13/2013 65790 Inject/Drain Joint/Bursa Major W/O US Completed 05/27/2013 85317 EKG Tracing & Interpretation Completed 05/08/2013 22347 Myocardial Perfusion Imaging Tomographic (Spect) Completed Multiple Studies 05/08/2013 23857 Stress Test Completed 05/06/2013 24950 Inject/Drain Joint/Bursa Major W/O US Completed 05/01/2013 62338 ECHO Transthoracic, Real-Time 2D With Doppler And Completed Color Flow 04/29/2013 34306 EKG Tracing & Interpretation Completed 11/28/2012 71600 Inject Tendon Sheath Or Ligament Aponeurosis Eg Completed Plantar Fascia 11/28/201243078 Inject/Drain Joint/Bursa Major W/O US Completed 11/15/2012 98129 EKG Tracing & Interpretation Completed 06/21/2012 35324 Rad Exam; Hip Unilat Completed 06/21/2012 23665 Rad Exam; Hip Unilat Completed 06/21/2012 16196 Rad Exam; Pelvis Completed 06/21/2012 67153 Rad Exam; Pelvis Completed 04/01/201234518 Inject/Drain Joint/Bursa Intermediate W/O US Completed 09/20/2011 52516 Rad Shoulder Comp, Min. 2 Views Completed 09/20/201189885 Inject/Drain Joint/Bursa Major W/O US Completed 06/02/2011 99039 Xray Knee 3 Views Completed 06/02/2011 36711 Rad Exam; Knee, Ap&L Completed 11/14/2010 98583 Rad Exam; Knee, Ap&L Completed 11/14/2010 32181 Rad Exam; Both Knees, Standing Ap Completed 10/03/2010 80510 Rad Exam; Knee, Ap&L Completed 10/03/2010 12932 Rad Exam; Both Knees, Standing Ap Completed 10/03/2010 23712 Rad Exam; Toes Completed 09/20/2010 24196 Revision TKA W Or W/O Allograft;Femoral & Entire Completed Tibial Component 09/20/2010 63025 Revision TKA W Or W/O Allograft;Femoral & Entire Completed Tibial Component 09/07/2010 89097 Xray Knee 3 Views Completed 09/07/2010 Inject/Drain Joint/Bursa Major W/O US Completed 02/23/2010 Inject/Drain Joint/Bursa Major W/O US Completed 02/16/2010 04626 Xray Knee 3 Views Completed 02/16/2010 80321 Rad Exam; Knee, Ap&L Completed 01/22/2009 37173613 Colonoscopy Completed Encounters Type Date Location Provider Dx Diagnosis Office Visit 01/23/2018 [facility] Yayo Shrestha, M48.05 Spinal stenosis, [...] M48.04 Spinal stenosis, Services Of Flash [employer] a[place] thoracic region R53.1 Weakness W19.xxxA Unspecified fall, initial encounter Office Visit 01/22/2018 8:36a [facility] Rachel Medellin, R53.1 Weakness Assoc,pc Hospitalists DIAMOND POLISHER I10 Essential (primary) hypertension E11.9 Type 2 diabetes mellitus without complications I25.10 [facility] heart disease of [place] coronary artery w/o ang pctrs D64.9 Anemia, unspecified M25.512 Pain in left shoulder M48.05 Spinal stenosis, thoracolumbar region Office Visit 01/21/2018 [facility] Lenora Mccarty, 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 disease of [place] coronary artery w/o ang pctrs R94.31 Abnormal electrocardiogram [ECG] [EKG] Office Visit 10/15/2017 Rheumatology Zsofia M81.0 Age-related 1:30p Services Of RAY Toro osteoporosis w/o Naren current pathological fracture Office Visit 07/13/2017 [facility] Carson Anderson I25.10 Athscl heart 10:30a Of Flash Hartley M.D. 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, left shoulder Office Visit 05/22/2017 11:40a [facility], Herman Burrell MD K92.1 [facility] Hospitalists E11.59 Type 2 diabetes mellitus with oth circulatory complications K57.31 Dvrtclos of lg int w/o perforation or abscess w bleeding I25.10 Athscl heart disease of [place] coronary artery w/o ang pctrs Office Visit 05/21/2017 11:39a [facility] Assoc, Herman Burrell MD K92.1 [facility] Hospitalists E11.59 Type 2 diabetes mellitus with oth circulatory complications K57.31 Dvrtclos of lg int w/o perforation or abscess w bleeding I25.10 Athscl heart disease of [place] coronary artery w/o ang pctrs Office Visit 05/20/2017 11:38a [facility] Assoc, Herman Burrell MD K92.1 [facility] Hospitalists E11.59 Type 2 diabetes mellitus with oth circulatory complications K57.31 Dvrtclos of lg int w/o perforation or abscess w bleeding I25.10 Athscl heart disease of [place] coronary artery w/o ang pctrs Office Visit 05/19/2017 11:37a [facility] Assoc, [place] Jessica K92.1 [facility] Hospitalists D.O. E11.59 Type 2 diabetes mellitus with oth circulatory complications K57.31 Dvrtclos of lg int w/o perforation or abscess w bleeding I25.10 Athscl heart disease of [place] coronary artery w/o ang pctrs Office Visit 04/23/2017 Orthopedic Debra M77.01 Medial 10:00a Services Of Bitting, RPA-C epicondylitis, right C.M.A. 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 disease of [place] coronary artery w/o ang pctrs N18.9 Chronic kidney disease, unspecified I12.9 Hypertensive chronic kidney disease w stg 1-4/unsp chr kdny Office Visit 11/21/2016 Pulmonology And Melony G47.33 Obstructive sleep 10:45a Sleep Services Of COLLEEN Noriega RN, apnea (adult) [facility]- (pediatric) G47.14 Hypersomnia due to medical condition Office Visit 09/29/2016 Pulmonology And Melony G47.33 Obstructive sleep 10:00a Sleep Services Of COLLEEN Noriega RN, apnea (adult) [facility]- (pediatric) G89.29 Other chronic pain G47.14 Hypersomnia due to medical condition F40.240 Claustrophobia E66.09 Other obesity due to excess calories Z68.36 Body mass index (BMI) 36.0-36.9, adult Office Visit 09/12/2016 10:00a Rheumatology Kimberlyofiyoni M81.0 Age-related Services Of [facility] [place], UX INTERACTION DESIGNER osteoporosis w/o current pathological fracture Z92.29 Personal history of other drug therapy M54.5 Low back pain Office Visit 08/16/2016 2:40p Rheumatology Nadine Toro, M79.604 Pain in Services Of [facility] UX INTERACTION DESIGNER right leg M81.0 Age-related osteoporosis w/o current pathological fracture M54.42 Lumbago with sciatica, left side Office Visit 08/08/2016 8:45a Pulmonology And Kim R06.81 Apnea, not Sleep Services Of MD Henri elsewhere [facility] classified R06.83 Snoring R40.0 Somnolence R51 Headache G47.8 Other sleep disorders R12 Heartburn E66.09 Other obesity due to excess calories Z68.37 Body mass index (BMI) 37.0-37.9, adult Office Visit 07/21/2016 11:00a [facility] Xiomy Wilson, PA I25.10 Athscl heart Of [facility] disease of [place] coronary artery w/o ang pctrs N18.9 Chronic kidney disease, unspecified I12.9 Hypertensive chronic kidney disease w stg 1-4/unsp chr kdny Office Visit 06/14/2016 9:00a [facility] Xiomy Steve, R07.9 Chest pain, Of [facility] PA unspecified I25.10 Athscl heart disease of [place] coronary artery w/o ang pctrs N18.9 Chronic [...] Toro, R21 Rash and other Services Of UX INTERACTION DESIGNER nonspecific skin [facility] eruption M81.0 Age-related osteoporosis w/o current pathological fracture E55.9 Vitamin D deficiency, unspecified Z79.899 Other longterm (current) drug therapy Office Visit 12/08/2015 11:00a Rheumatology Zsofia M81.0 Age-related Services Of Home Health Occupational Therapist [place], UX INTERACTION DESIGNER osteoporosis w/o current pathological fracture E55.9 Vitamin D deficiency, unspecified N18.3 Chronic kidney disease, stage 3 (moderate) Z79.899 Other longterm (current) drug therapy Office Visit 09/07/2015 11:30a Rheumatology Zsofia M81.0 Age-related Services Of Home Health Occupational Therapist [place], UX INTERACTION DESIGNER osteoporosis w/o current pathological fracture K21.9 Gastro-esophageal reflux disease without esophagitis N18.3 Chronic kidney disease, stage 3 (moderate) E55.9 Vitamin D deficiency, unspecified Z92.29 Personal history of other drug therapy Office Visit 08/20/2015 9:30a [facility] Carson Anderson 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 disease of [place] coronary artery w/o ang pctrs R07.9 Chest pain, unspecified Office Visit 07/16/2015 9:15a [facility] Carson Anderson 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 disease of [place] coronary artery w/o ang pctrs I10 Essential [...] osteoporosis w/o current pathological fracture Z79.899 Other longterm (current) drug therapy M79.7 Fibromyalgia Office Visit 02/12/2015 11:00a [facility] Carson Anderson I10 Essential (primary) Of Flash Hartley M.D. hypertension I25.10 Athscl heart disease of [place] coronary artery w/o ang pctrs Office Visit 01/15/2015 [facility] K92.2 Gastrointestinal 10:32a Assoc,immanuel Durham, DIAMOND POLISHER hemorrhage, Hospitalists unspecified E13.9 Other specified diabetes mellitus without complications I10 Essential (primary) hypertension Office Visit 01/14/2015 [facility] K92.2 Gastrointestinal 10:30a Assoc,immanuel Durham, DIAMOND POLISHER hemorrhage, Hospitalists unspecified E13.9 Other specified diabetes mellitus without complications I10 Essential (primary) hypertension Office Visit 12/11/2014 3:30p [facility] BLACK Arevalo 727.03 Trigger Finger Of Home Health Occupational Therapist Acquired 401.9 Hypertension Unspec 414.00 Coronary Atherosclerosis Unspec Type Vessel [place]/Graft 715.09 Osteoarthrosis Generalized Multiple Sites V72.81 Examination Preoperative Cardiovascular Office Visit 12/09/2014 1:30p Orthopedic Services Of Lore Higginbotham, 724.2 Lumgonzalo KayMEladioAEladio RPA-C 727.03 Trigger Finger Acquired Office Visit 10/26/2014 1:22p [facility] 584.9 Acute Kidney Assoc,immanuel Bhagat M.D. Failure, Hospitalists Unspecified 786.05 Shortness Of Breath 276.8 Hypopotassemia 401.9 Hypertension Unspec [facility] Acute Kidney 1:21p Assoc,immanuel BOB M.D. Failure, Hospitalists Unspecified 786.05 Shortness Of Breath 276.8 Hypopotassemia 401.9 Hypertension Unspec Office Visit 10/16/2014 [facility] 562.12 Diverticulosis 11:43a immanuel Phan M.D. Colon W/ Hemorrhage Hospitalists 401.9 Hypertension Unspec Office Visit 10/15/2014 [facility] 562.12 Diverticulosis 11:43a immanuel Phan M.D. Colon W/ Hemorrhage Hospitalists 414.00 Coronary Atherosclerosis Unspec Type Vessel [place]/Graft 401.9 Hypertension Unspec Office Visit 10/14/2014 [facility] 562.12 Diverticulosis 11:42a immanuel Phan M.D. Colon W/ Hemorrhage Hospitalists 414.00 Coronary Atherosclerosis Unspec Type Vessel [place]/Graft 401.9 Hypertension Unspec Office Visit 10/13/2014 [facility] 562.12 Diverticulosis 11:41a immanuel Phan M.D. Colon W/ Hemorrhage Hospitalists 414.00 Coronary Atherosclerosis Unspec Type Vessel [place]/Graft 401.9 Hypertension Unspec Office Visit 10/12/2014 [facility] 562.12 Diverticulosis 11:41a immanuel Phan M.D. Colon W/ Hemorrhage Hospitalists 414.00 Coronary Atherosclerosis Unspec Type Vessel [place]/Graft 401.9 Hypertension Unspec Office Visit 10/11/2014 [facility] 562.12 Diverticulosis 11:40a immanuel Phan M.D. Colon W/ Hemorrhage Hospitalists 414.00 Coronary Atherosclerosis Unspec Type Vessel [place]/Graft 401.9 Hypertension Unspec Office Visit 08/13/2014 Rheumatology Phillip Nettie, 733.01 Osteoporosis 10:20a Services Of Flash Scott Senile 724.00 Spinal Stenosis Unspec Region 338.4 Chronic Pain Syndrome 715.09 Osteoarthrosis Generalized Multiple Sites Office Visit 07/06/2014 [facility] 578.9 Hemorrhage 12:48p immanuel Phan M.D. Gastrointestinal Hospitalists Tract Unspec 530.81 Esophageal Reflux 285.1 Anemia Posthemorrhagic Acute 276.8 Hypopotassemia Office Visit 07/05/2014 2:08p [facility] Sommer SEladio 414.9 Ischemic Heart Tyler Gordon Disease Chronic Unspec 794.31 Electrocardiogram (ECG) (EKG) Abnormal 401.1 Hypertension Benign V45.82 Percutaneous Transluminal Coronary Angioplas Postsurg Status Office Visit 07/05/2014 [facility] 578.9 Hemorrhage 12:45p immanuel Phan M.D. Gastrointestinal Hospitalists Tract Unspec 276.8 Hypopotassemia 285.1 Anemia Posthemorrhagic Acute Office Visit 07/04/2014 [facility] 578.9 Hemorrhage 12:45p immanuel Phan M.D. Gastrointestinal Hospitalists Tract Unspec 530.81 Esophageal Reflux 285.1 Anemia Posthemorrhagic Acute 276.8 Hypopotassemia Office 07/03/2014 [facility] Oracio Steinberg 425.11 Hypertrophic Visit 3:45p Of Flash Danielle M.D., Obstructive FACC, FASNC Cardiomyopathy Office 07/03/2014 [facility] 578.9 Hemorrhage Visit 12:44p immanuel Phan M.D. Gastrointestinal Hospitalists Tract Unspec 584.9 Acute Kidney Failure, Unspecified 530.81 Esophageal Reflux 285.1 Anemia Posthemorrhagic Acute Office Visit 07/02/2014 [facility] Lucia 578.9 Hemorrhage 12:42p Assimmanuel clark DO Gastrointestinal Hospitalists Tract Unspec 530.81 Esophageal Reflux 786.50 Pain Chest Unspec 285.1 Anemia Posthemorrhagic Acute Office Visit 07/02/2014 10:33a [facility] Jacquelyn Hans, 780.2 Syncope & Of Flash Scott Collapse 414.9 Ischemic Heart Disease Chronic Unspec Office Visit 07/01/2014 [facility] Lucia 578.9 Hemorrhage 12:42p Assoc,immanuel Cheek DO Gastrointestinal Hospitalists Tract Unspec 584.9 Acute Kidney Failure, Unspecified 530.81 Esophageal Reflux 285.1 Anemia Posthemorrhagic Acute Office Visit 06/30/2014 [facility] Naeem Reid, 578.9 Hemorrhage 12:41p [...] Replacement By Other Means Office Visit 05/27/2014 [place] Carson Anderson 414.01 Coronary 10:30a Cardiology Of Tyler Hartley Atherosclerosis [facility] [place] 401.9 Hypertension Unspec Office Visit 04/23/2014 Rheumatology [...] 726.10 Bursae & Tendon 11:00a Services Of Home Health Occupational Therapist M.D. Disorders Shoulder Region Unspec 733.00 Osteoporosis Unspec 724.00 Spinal Stenosis Unspec Region 729.1 Myalgia & Myositis Unspec 715.09 Osteoarthrosis Generalized Multiple Sites 585.3 Chronic Kidney Disease Stage III Moderate Office Visit 12/11/2013 1:45p [facility] Carson Anderson 786.50 Pain Chest Of Flash Hartley M.D. Unspec 401.9 Hypertension Unspec 414.01 Coronary Atherosclerosis [place] Office Visit 12/04/2013 Orthopedic Krystle 727.03 Trigger Finger 11:15a Services Of Tyler Crisostomo Acquired C.M.AEladio Office Visit 12/01/2013 Rheumatology Norbert Kidd, [...] Not Elsewhere Class Office Visit 05/27/2013 1:45p [facility] Carson Anderson 786.50 Pain Chest Of Home Health Occupational Therapist [facility] Tyler Hartley Unspec 401.9 Hypertension Unspec 786.05 Shortness Of Breath Office Visit 05/12/2013 10:26a [facility] [place] 786.51 Pain Precordial Assoc,pc Ritchie Jessica Hospitalists 785.1 Palpitations 278.01 Obesity Morbid Office Visit 05/11/2013 10:26a [facility] [place] 786.51 Pain Precordial Assoc,pc Jaskaran D.O. Hospitalists 785.1 Palpitations 278.01 Obesity Morbid Office Visit 05/06/2013 11:15a Orthopedic Lula Ferrari 718.81 Derangement Joint Services Of JOSE Other Not C.M.A. Elsewhere Class Shoulder 726.10 Bursae & Tendon Disorders Shoulder Region Unspec 726.2 Shoulder Region Affections Other Not Elsewhere Class Office Visit 04/29/2013 1:15p [facility] Carson Anderson 786.50 Pain Chest Of Home Health Occupational Therapist AT [facility] Tyler Hartley Unspec 786.05 Shortness Of Breath 414.01 Coronary Atherosclerosis [place] 401.9 Hypertension Unspec Office Visit 11/28/2012 11:15a Orthopedic Krystle Crisostomo 727.82 Calcium Services Of Tyler Deposits Tendon C.M.A. & Bursa 727.03 Trigger Finger Acquired 726.2 Shoulder Region Affections Other Not Elsewhere Class Office Visit 11/15/2012 10:15a [facility] Carson D. 414.9 Ischemic Heart Of Flash Hartley M.D. [...] Spence, 727.82 Calcium Deposits 3:15p Services Of CEladioMMaria M Scott Tendon & Bursa Office Visit 02/14/2012 Rafal Ferrari 726.31 Epicondylitis 10:15a Services Of C.M.A. RPA-C Medial Office Visit 01/26/2012 [facility] Renita 786.51 Pain Precordial 12:43p Assoc,immanuel De Jesus M.D. Hospitalists 414.01 Coronary Atherosclerosis [place] 401.9 Hypertension Unspec Office Visit 01/25/2012 12:43p [facility] Naeem Reid 786.51 Pain Precordial Assoc,immanuel Scott Hospitalists 414.01 Coronary Atherosclerosis [place] 401.9 Hypertension Unspec 272.2 Hyperlipidemia Mixed Office Visit 11/20/2011 2:30p Orthopedic Lula 726.31 Epicondylitis Medial Services Of TAMELA Ferrari-C C.M.A. Office Visit 09/20/2011 8:15a Orthopedic Virgil [...] Leg Office Visit 11/01/2009 DO Not Use Home Health Occupational Therapist Jamisonananda, 272.4 Hyperlipidemia Other 10:00a AT Sybil Sol MD Unspec 414.01 Coronary Atherosclerosis [place] Office Visit 10/14/2009 10:00a DO Not Use Home Health Occupational Therapist Linknda, 530.81 Esophageal AT Sybil Sol MD Reflux 599.0 UTI Urinary Tract Infection Site Not Spec 272.4 Hyperlipidemia Other Unspec Office Visit 07/09/2009 1:20p DO Not Use Home Health Occupational Therapist Kennethanorenetta, 112.1 Candidiasis The AT Sybil Mendieta M.D. 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 Unspec Hospitalists Office Visit 04/30/2009 2:30a [facility] Renita 786.50 Pain Chest [facility],immanuel De Jesus M.D. Unspec Hospitalists 401.9 Hypertension Unspec Office Visit 04/29/2009 2:15a [facility] 786.50 Pain Chest Unspec Assoc,immanuel De Jesus M.D. Hospitalists Office Visit 04/19/2009 3:00p Neurosurgery Rob Johnson 721.0 Spondylosis [facility] Tyler Salguero Cervical W/O Myelopathy Office Visit 03/22/2009 9:40a DO Not Use Home Health Occupational Therapist AT [place] 307.42 Sleep Disorder Sybil Mendieta M.D. 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 Cervical W/O Myelopathy Office Visit 01/08/2009 11:00a DO Not Use Home Health Occupational Therapist Eusebio Barroso.42 Sleep Disorder AT Sybil Mendieta M.D. 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 Mellitus W/O Compl Type II Or Unspec Controlled 278.00 Obesity Unspec 401.9 Hypertension Unspec 272.4 Hyperlipidemia Other Unspec 716.86 Arthropathy Other Spec Lower Leg 530.81 Esophageal Reflux 414.01 Coronary Atherosclerosis [place] 412 Myocardial Infarction Old 565.0 Anal Fissure Plan of Treatment Future Appointment(s):04/15/2018 11:30 am - Zsofia Cortez, UX INTERACTION DESIGNER at [facility]02/27/2018 - Stephen Calixto M.D.M48.04 Spinal stenosis, thoracic regionFollow up:Schedule surgery for 03/12 Thoracic Decompressive Laminectomy T10-T11
--- OUTSIDE RECORDS SUMMARY | 2018-03-13 15:41 | XMS REPORT | Continuity of Care Document ---
:1935 External Reference #:[id number] Author Name Yashira Murrieta Care Team Providers Name Role Phone [facility] Primary Care Physician Unavailable Payers Type Date Identification Numbers Payment Provider Subscriber Effective: Policy Number: [id number] Medicare Deion Perdomo 1987 PayID: [id number] [facility] [address] [place] [address] Effective: 2017 Policy Number: [id number] [facility] Deion Perdomo Expires: 2018 Group Number: 60% [id number] PayID: [id number] [facility] [address] [place] [address] Advance Directives Description No Information Available Problems [...] apnea syndrome Melony Noriega DNP, RN, Active TOMOGRAPHIC TECH-BC Onset: 09/29/2016 Hypersomnia Melony Noriega DNP, RN, Active TOMOGRAPHIC TECH-BC Onset: 01/20/2018 Walking disability Jailene Mitchell MD [...] Patient has never smoked Smoking Status Reviewed: 02/25/18 Patient has never smoked Exercise Type/Frequency Exercises [...] mg sc M81.0 Zsofia 2017 q6mon [place], TOMOGRAPHIC TECH Rollator Walker 06/04/ Active use as Krystle 2018 needed Tyler Crisostomo Vitamin A 03/30/ Active Capsules [id number] 1 daily Zsofia 2018 [place], TOMOGRAPHIC TECH Diltiazem HCL 01/17/ Active Caps ER 180mg 90caps 1 po qd Carson Anderson ER 2017 24HR Tyler Hartley Calcium 09/13/ Active Tablets 600-800mg- 60tabs 1 by M81.0 Zsofia 600/Vitamin D3 2016 Unit mouth [place], twice a TOMOGRAPHIC TECH day Prolia 09/12/ Active Solution 60mg/ml 60mg 60 mg sc M81.0 Zsofia 2016 q6mon [place], TOMOGRAPHIC TECH Ibuprofen 08/16/ Active Tablets 800mg 60tabs 1 tab by M54.32 Zsofia 2017 mouth [place], three TOMOGRAPHIC TECH times a day with food as needed Triamcinolone 02/27/ Active Lotion 0.025% 60ml use on R21 Zsofia Acetonide 2016 affected [place], area 2x TOMOGRAPHIC TECH daily as needed Nitrostat 12/31/ Active Tablets [...] - -Unit mouth [place], 09/21/ every day TOMOGRAPHIC TECH 2016 Calcium 600 09/06/ Hx Tablets 600mg 180tab 1 tab by Albert0 Nadine 2015 - s mouth 2x [place], 09/12/ daily TOMOGRAPHIC TECH 2016 Percocet 04/19/ Hx Tablets 5-325mg 80tabs [...] Kidd 2016 M81.0 Caltrate 01/14/2014 Hx Tablets [id number] 60tabs 1 po bid 733.00 Norbert 600+D [...] Prolia Administered Injection Zsofia Injection, 017 [place], TOMOGRAPHIC TECH Denosumab, 1MG Depomedrol Administered Injection Dirk Jordy, 40MG 017 MEladioDEladio Depomedrol Administered Injection Dirk Jordy, 40MG 017 MKindra Prolia Administered Injection Nurse Visit Injection, 017 C Denosumab, 1MG Prolia Administered Injection Zsofia Injection, 016 [place], TOMOGRAPHIC TECH Denosumab, 1MG Inj, Administered Injection Carson D. [...] Depomedrol Administered Injection Dirk Jordy, 40MG 013 JetDEladio Depomedrol Administered Injection Dirk Jordy, 80MG 012 MEladioDEladio Immunizations CPT Code Status Date Vaccine Lot # [id number] Given 12/23/2008 Zoster (Zostavax) Vital Signs Date Vital Result Comment 02/25/2018 9:09am Height 60 inches 5'0" Weight [...] Result H/L Range Note Laboratory test 11/22/2017 [facility] Calcium 5.08 mg/dL N 4.65-5.[address] [place] [address] [phone] Pthi 11/22/2017 [facility] Calcium (PTH 9.8 mg/dL N 8.6-10.[address] Intact) [place] [address] [phone] PTH Intact 3.3 pmol/L N 1.3-9.3 Laboratory test 11/22/2017 [facility] Vitamin D 50.8 ng/mL High 20-[address] Total 25(Oh) [place] [address] [phone] Comp Metabolic 2017 [facility] Sodium 135 mmol/L N 133- [address] [place] [address] [phone] Potassium 4.0 mmol/L N 3.5-5.0 Chloride 99 [...] 45.4 >60 1 Total Protein 24HR 2017 [facility] Urine Collection Time [address] [place], [place] [phone] Urine Total Volume 1600 mL Urine Random Total Protein 19 mg/dL Urine Total Protein/24HR 304 mg/24Hr High 0-165 Creatinine 2017 [facility] Creatinine 1.44 mg/dL High 0.51-0.[address] [place] [address] [phone] Urine Collection Time 24 Urine Total Volume 1600 mL Urine Random Creatinine 70.42 mg/dL Creatinine Clearance 54 mL/min Low 88-128 Laboratory test 03/22/2016 [facility] Vitamin D 40.0 ng/mL N 30-50 2, [address] Total 25(Oh) [place] [address] [phone] Comp Metabolic 03/22/2016 [facility] Sodium 137 mmol/L N 133- [address] [place] [address] [phone] Potassium 3.8 mmol/L N 3.5-5.0 Chloride 98 [...] Egfr 40.1 N >60 4 Pthi 03/22/2016 [facility] Calcium (PTH Intact) 9.9 mg/dL N 8.6-10.[address] [place] [address] [phone] PTH Intact 4.2 pmol/L N 1.3-9.3 Laboratory test 03/22/2016 [facility] Vitamin D, 1,25 43 pg/mL N 18-78 [address] [place] [address] [phone] Laboratory test 12/15/2015 [facility] Vitamin D Total 38.1 ng/ mL N 30-50 [address] 25(Oh) [place] [address] [phone] Pthi 12/15/2015 [facility] Calcium (PTH 9.8 mg/dL N 8.6-10.[address] Intact) [place] [address] [phone] PTH Intact 4.3 pmol/L N 1.3-9.3 Comp Metabolic Panel 12/15/2015 [facility] Sodium 138 mmol/L N 133-[address] [place] [address] [phone] Potassium 3.9 mmol/L N 3.5-5.0 Chloride 101 [...] 40.4 N >60 7 PTH, Intact 09/03/2015 [facility] Calcium (PTH 9.8 mg/dL N 8.6 -10.[address] Intact) [place] [address] [phone] PTH Intact 8.3 pmol/L N 1.3-9.3 Laboratory test 09/03/2015 [facility] Vitamin D 29.0 ng/mL Low 30-[address] Total 25(Oh) [place] [address] [phone] Vitamin D, 1,25 Dihydroxy 53 pg/mL N 18-78 8 Phosphorus 3.5 mg/dL N 2.5-5.0 Calcium Ionized 4.77 mg/dL N 4.65-5.28 CMP Panel 09/03/2015 [facility] Sodium 136 mmol/L N 133-[address] [place] [address] [phone] Potassium 3.6 mmol/L N 3.5-5.0 Chloride 101 [...] Egfr 50.5 N >60 9 Hemoglobin/Hematacrit 01/18/2015 [facility] Hemoglobin 8.0 Low 12.0-16.[address] g/[place] [address] [phone] Hematocrit 25 % Low 35-47 CBC Auto Diff 05/06/2014 [facility] White Blood 7.2 10^3/uL N 4.8-10.[address] [place] [address] [phone] Red Blood Count 4.22 10^6/uL N 4.0-5.4 [...] % 0 N Comp Metabolic Panel 05/06/2014 [facility] Sodium 139 mmol/L N 133-145 [address] [place] [address] [phone] Potassium 4.1 mmol/L N 3.5-5.0 Chloride 102 [...] 47.4 N >60 10 Laboratory test 05/06/2014 [facility] C Reactive 4.35 mg/L N < 5.00 [address] [place] [address] [phone] Erythrocyte Sed Rate 45 mm/Hr High 0-40 Urinalysis Profile 03/09/2014 [facility] Urine Color Yellow N [address] [place] [address] [phone] Urine Appearance Cloudy N Urine Specific [place] 1.013 N 1.010-1.030 Urine pH 8.0 N [...] Present Abnormal Absent Urine Culture And 03/09/2014 [facility] Urine Culture (SEE NOTE ) [address] [place] [address] [phone] Vitamin D, 25 12/29/2013 [facility] 25-Hydroxy <4.0 ng/mL N Hydroxy [address] Vitamin D2 [place] [address] [phone] 25-Hydroxy Vitamin D3 29 ng/mL N 25-Hydroxy Vitamin D Total 29 ng/mL N 13 Protein 12/29/2013 [facility] Total 7.8 g/dL N 6.3 - Electrophoresis [address] Protein(Pep) 7.9 [place] [address] [phone] Albumin 3.6 g/dL N 3.4-4.7 Alpha-1 Globulin 0.3 g/dL N 0.1-0.3 Alpha-2 Globulin 1.1 g/dL Abnormal 0.6-1.0 Beta Globulin 1.1 g/dL N 0.7-1.2 Gamma Globulin 1.8 g/dL Abnormal 0.6-1.6 Albumin/Globulin Ratio 0.84 N Impression See Comment N 14 Pthi 12/29/2013 [facility] PTH Intact 14.6 pmol/L High 1.3- 9.3 [address] [place] [address] [phone] Calcium (PTH Intact) 9.2 mg/dL N 8.6-10.3 RBC Leukoreduced 09/22/2010 [facility] RBC Leukoreduced [id number] 101 [facility] O <SEE NOTE> [place] [address] [phone] Patient Blood Type O POSITIVE Antibody Screen NEGATIVE Laboratory test 09/22/2010 [facility] Release Date 09/25/10 16 finding [address] [place] [address] [phone] Hemoglobin/Hemata 09/21/2010 [facility] Hemoglobin 10.0 g/dL Low 12.0-1 crit 101 [facility] 6.0 [place] [address] [phone] Hematocrit 30 % Low 35-47 Basic Metabolic Panel 09/21/2010 [facility] Sodium 138 mmol/L 135-145 [address] [place] [address] [phone] Potassium 3.8 mmol/L 3.5-5.0 Chloride 98 mmol/L Low 101-111 Co2 (Carbon Dioxide) 34.0 mmol/L High 22-32 Anion Gap 6.0 mmol/L 2-11 17 Glucose 107 mg/dL High 70-100 BUN 17 mg/dL 6-24 Creatinine 1.00 mg/dL 0.50-1.40 One Over Creatinine 1.00 BUN/Creatinine Ratio 17.0 8-20 Calcium 8.0 mg/dL Low 8.1-9.9 eGFR Non- 54.3 > 60 eGFR 69.9 > 60 18 Laboratory test 09/12/2010 [facility] Release Date 09/23/10 19, 20 finding [address] [place] [address] [phone] Sensitivities For 09/12/2010 [facility] Ampicillin >=32 R Urine Culture [address] [place] [address] [phone] Amikacin <=2 S Ciprofloxacin >=4 R Ceftriaxone <=1 S Cefazolin <=4 S Nitrofurantoin <=16 S Gentamicin <=1 S Imipenem <=1 S Levofloxacin 4 I Trimeth-Sulfa >=320 R Ceftazidime <=1 S Tigecycline <=0.5 S Piperacillin/Tazobactam KB 30 S Urine Culture & 09/12/2010 [facility] Urine Culture ESCHERICHIA [address] [place] [address] [phone] Laboratory test 09/12/2010 [facility] Erythrocyte Sed 67 MM/HR High 0-[address] Rate 0 [place] [address] [phone] Manual 09/12/2010 [facility] Polysegmented 76 % 38- Differential [address] Neutrophil 83 [place] [address] [phone] Lymphocyte 20 % Low 25-47 Monocyte 3 % 0-13 Eosinophil 1 % 0-6 Absolute Neutrophil Count 8.2 Anisocytosis SLIGHT Stomatocytes 1+ CBC Auto Diff 09/12/2010 [facility] White Blood 10.8 CUMM 4.8 -10.[address] [place] [address] [phone] Red Cell Count 3.92 CUMM Low 4.2-5.4 Hemoglobin 11.6 g/dL Low 12.0-16.0 Hematocrit 36 % 35-47 Mean Corpuscular Volume 91 um3 79-97 Mean Corpuscular Hemoglob 29 pg 27-31 Mean Corpuscular HGB Cone 32 g/dL 32-36 Redcell Distribution WDTH 15 % 10.5-15 Platelet Count 294 CUMM 150-450 Mean Platelet Volume 7.8 um3 7.4-10.4 22 Laboratory test 09/12/2010 [facility] C Reactive 1.7 mg/dL High Less Than finding [address] Protein 0.5 [place] [address] [phone] Basic Metabolic 09/12/2010 [facility] Sodium 138 mmol/L 135- [address] [place] [address] [phone] Potassium 3.6 mmol/L 3.5-5.0 Chloride 101 mmol/L 101-111 Co2 (Carbon Dioxide) 29.0 mmol/L 22-32 Anion Gap 8.0 mmol/L 2-11 23 Glucose 98 mg/dL 70-100 BUN 27 mg/dL High 6-24 Creatinine 0.87 mg/dL 0.50-1.40 One Over Creatinine 1.10 BUN/Creatinine Ratio 31.0 High 8-20 Calcium 9.5 mg/dL 8.1-9.9 eGFR Non- 63.8 > 60 eGFR 82.1 > 60 24 Type And Screen 09/12/2010 [facility] Patient Blood O POSITIVE (Pre-Adm) [address] [place] [address] [phone] Antibody Screen NEGATIVE Specimen Discard Date 09/26/10 25 RBC Leukoreduced [id number] O <SEE NOTE> 26 RBC Leukoreduced [id number] O <SEE NOTE> 27 Laboratory test 09/12/2010 [facility] PTT (Aptt) 29.6 25.15- 38.53 finding [address] [place] [address] [phone] Protime 09/12/2010 [facility] Inr 0.94 0.82-1.17 [address] [place] [address] [phone] Protime 11.1 SEC 10.2-14.8 29 Urinalysis W/Microscopic 09/12/2010 [facility] Ua Color YELLOW Yellow [address] [place] [address] [phone] Appearance-Urine CLOUDY Clear Specific [place]-Ur 1.024 1.010-1.030 Esterase-Urine 3+ Abnormal Negative Nitrite NEGATIVE Negative Cfaafkzrsbya-Va-CWL NEGATIVE Negative Protein-Urine 1+ Abnormal Negative PH-Urine 6.0 5-9 Blood-Urine 3+ Abnormal Negative Ketones-Urine NEGATIVE Negative Bilirubin-Ur NEGATIVE Negative Glucose-Urine NEGATIVE Negative WBC-Urine TNTC Abnormal 0-5 RBC-Urine 2-5 0-2 Epith Cells-Ur FEW None Bacteria-Urine 4+ None Lipid Profile 10/22/2009 [facility] Triglyceride 160 mg/dL 40 -200 (Trig/Chol/HDL) [address] [place] [address] [phone] Cholesterol 167 mg/dL Less Than 200 30 High Density Lipoprotein 57 mg/dL 40-60 31 Cholesterol/HDL Ratio 2.93 AVERAGE 1-4.44 Low Density Lipoprotein 78 mg/dL Less Than 100 32 Laboratory test 10/22/2009 [facility] TSH 2.82 MIU/ML 0.34- 5.60 finding [address] [place] [address] [phone] Comp Metabolic 10/22/2009 [facility] Sodium 138 mmol/L 135- [address] [place] [address] [phone] Potassium 4.9 mmol/L 3.5-5.0 Chloride 104 mmol/L [...] > 60 37 CBC With Manual 10/22/2009 [facility] White Blood 8.3 CUMM 4.8-10.[address] [place] [address] [phone] Red Cell Count 4.52 CUMM 4.2-5.4 Hemoglobin [...] 5.1 RBC Morphology NORMAL Urinalysis W/Microscopic 07/09/2009 [facility] Ua Color YELLOW Yellow [address] [place] [address] [phone] Appearance-Urine CLEAR Clear Specific [place]-Ur 1.017 1.010-1.030 Esterase-Urine 1+ Abnormal Negative Nitrite NEGATIVE Negative Ferilbbgtljs-Bm-GTL NEGATIVE Negative Protein-Urine NEGATIVE Negative PH-Urine 6.0 5-9 Blood-Urine 2+ Abnormal Negative Ketones-Urine NEGATIVE Negative Bilirubin-Ur NEGATIVE Negative Glucose-Urine NEGATIVE Negative WBC-Urine 0-2 0-5 RBC-Urine 0-2 0-2 Epith Cells-Ur FEW None Ua Comments (SEE NOTE) 38 Urine Culture & 07/09/2009 [facility] Urine Culture NG [address] [place] [address] [phone] Laboratory test 07/09/2009 [facility] Hemoglobin A1c 5.8 5-7 finding Urinalysis 05/22/2009 [facility] Ua Color RED Yellow W/Microscopic [address] [place] [address] [phone] Appearance-Urine TURBID Clear Specific [place]-Ur 1.007 Low 1.010-1.030 Esterase-Urine 3+ Abnormal Negative Nitrite POSITIVE Abnormal Negative Sbgbncsvqasx-Hv-KDT NEGATIVE Negative Protein-Urine 3+ Abnormal Negative PH-Urine 6.0 5-9 Blood-Urine 3+ Abnormal Negative Ketones-Urine 1+ Abnormal Negative Bilirubin-Ur SEE ICTOTEST Abnormal Negative Glucose-Urine NEGATIVE Negative WBC-Urine TNTC Abnormal 0-5 RBC-Urine 3-5 0-2 Mucus Urine SMALL None Epith Cells-Ur FEW None Bacteria-Urine 3+ None Laboratory test 05/22/2009 [facility] Ictotest-Urine NEGATIVE [address] [place] [address] [phone] Urine Culture & 05/22/2009 [facility] Urine Culture SN1 [address] [place] [address] [phone] MRSA/Vre Screen 05/02/2009 [facility] MRSA/Vre Culture [facility]ICU [address] [place] [address] [phone] CBC With Manual 05/01/2009 [facility] White Blood Count 9.0 CUMM 4.8-[address] 0.8 [place] [address] [phone] Red Cell Count 4.47 CUMM 4.2-5.4 Hemoglobin [...] 5.9 Anisocytosis SLIGHT CMP Panel Stat 05/01/2009 [facility] Sodium 138 mmol/L 135- [address] [place] [address] [phone] Potassium 3.9 mmol/L 3.5-5.0 Chloride 101 mmol/L [...] 57.0 > 60 47 Laboratory test 05/01/2009 [facility] Troponin-I (TnI) 0.04 NG/ ML [address] [place] [address] [phone] CBC With 04/29/2009 [facility] White Blood 8.2 CUMM 4.8-10 Electronic Diff [address] Count .8 [place] [address] [phone] Red Cell Count 4.76 CUMM 4.2-5.4 Hemoglobin [...] 0 0-0.2 49 Comp Metabolic Panel 04/29/2009 [facility] Sodium 137 mmol/L 135-[address] [place] [address] [phone] Potassium 3.2 mmol/L Low 3.5-5.0 Chloride 98 [...] 61.0 > 60 54 Laboratory test 04/29/2009 [facility] Troponin-I (TnI) 0.02 NG/ ML [address] [place] [address] [phone] Magnesium Stat 04/29/2009 [facility] Magnesium 2.1 mg/dL 1.7- 2. [address] 6 [place] [address] [phone] Amylase Stat 04/29/2009 [facility] Amylase 52 U/L 30-[address] [place] [address] [phone] Laboratory test 04/29/2009 [facility] Lipase 25 U/L 22-[address] [place] [address] [phone] Protime Stat 04/29/2009 [facility] Inr 0.97 0.97-[address] .03 [place] [address] [phone] Protime 11.4 SEC Low 11.5-12.2 57 PTT (Aptt) 04/29/2009 [facility] PTT (Aptt) 32.5 25.15-38.53 [address] [place] [address] [phone] Laboratory 04/29/2009 [facility] D Dimer < 200 Less Than 230 test finding [address] Quantitative [place], [place] [phone] BNP Evaluatr 37.0 pg/mL 0-100 Surgical 01/22/2009 [facility] Surgical [address] Pathology <SEE NOTE> [place] [address] [phone] PTT (Aptt) 01/04/2009 [facility] PTT (Aptt) 28.2 25.[address] 5-38 [place] [address] [phone] Protime Stat 01/04/2009 [facility] Inr 0.99 0.[address] -1.1 [place] [address] [phone] Protime 12.1 SEC 10.7-13.6 62 Laboratory test 01/04/2009 [facility] Troponin-I (TnI) 0.02 NG/ ML [address] [place] [address] [phone] Magnesium Stat 01/04/2009 [facility] Magnesium 2.3 mg/dL 1.7- 2. [address] 6 [place] [address] [phone] CMP Panel Stat 01/04/2009 [facility] Sodium 136 mmol/L 135- [address] 5 [place] [address] [phone] Potassium 3.7 mmol/L 3.5-5.0 Chloride 97 mmol/L [...] 47.7 > 60 68 CBC With 01/04/2009 [facility] White Blood 9.2 CUMM 4.8-10.8 Electronic Diff [address] [place] [address] [phone] Red Cell Count 4.44 CUMM 4.2-5.4 Hemoglobin [...] Abs Basophils 0 0-0.2 Laboratory test 01/01/2009 [facility] Hemoglobin A1c 6.4 % High Less [address] Than 6.0 [place] [address] [phone] Urine 01/01/2009 [facility] Microalbumin 40.[address] (MG/L) mg/[place] [address] [phone] Urine Creatinine 138.18 mg/dL Fortunato Alb/Creatinine Ratio 28.9 UG/MG Less Than 30 70 Lipid Profile 01/01/2009 [facility] Triglyceride 64 mg/dL 40- 200 (Trig/Chol/HDL) [address] [place] [address] [phone] Cholesterol 174 mg/dL Less Than 200 71 High Density Lipoprotein 70 mg/dL High 40-60 72 Cholesterol/HDL Ratio 2.49 AVERAGE 1-4.44 Low Density Lipoprotein 91 mg/dL Less Than 100 73 Comp Metabolic Panel 01/01/2009 [facility] Sodium 139 mmol/L 135-[address] [place] [address] [phone] Potassium 4.0 mmol/L 3.5-5.0 Chloride 102 mmol/L [...] 57.0 > 60 78 CBC With 01/01/2009 [facility] White Blood 15.4 CUMM High 4.8- 10.8 Manual Diff [address] [place] [address] [phone] Red Cell Count 4.71 CUMM 4.2-5.4 Hemoglobin [...] developed and its performance characteristics determined by [facility] in a manner consistent with CLIA requirements. This test has not been cleared or approved by the U.S. Food and Drug Administration. Test Performed by: [place] [address] Supervisor [employer]: Yayo Harding II, M.D., Ph.D. 6 standing [...] <15 (or dialysis) 8 Test Performed by: [place] [address] Supervisor [employer]: Yayo Harding II, M.D., Ph.D. 9 Because [...] Acute inflammation: >10.00 12 RUN DATE: 03/11/14 [facility] LAB LIVE PAGE 1 RUN TIME: [address] [place] [address] Specimen Inquiry Name: DEION PERDOMO : [address]: Anam Barroso MD Acct: [id number] Unit: [id number] AGE: 78 Location: LAB Re03/09/14 SEX: F Status: REG REF SPEC: [id number] HELLEN: 03/09/14-[address] [facility] [address]: Anam Barroso MD PC REQ: [id number] RECD: 03/09/14 STATUS: WILL GREWAL DR: Norbert Kidd MD _ SOURCE: URINE SPDESC: ORDERED: Urine Culture QUERIES: Medent Number [id number] Procedure Result Verified Site Urine Culture Final 03/11/14- 1108 ML Organism 1 NORMAL RONAL [place] Count >100,000 (Many) CFU/ML END OF REPORT * ML=Testing performed at Main Lab DEPARTMENT OF PATHOLOGY, [address] [place] [address] Chase Moore M.D. Director [facility] # [id number] 13 REFERENCE VALUE 25-HYDROXY D TOTAL (D2+D3) Optimum levels in the healthy population are 20-50, patients with bone disease may benefit from higher levels within this range. Test Performed by: [place] [address] Supervisor [employer]: Saran Lomax M.D. 14 RESULT: Polyclonal hypergammaglobulinemia Test Performed by: [place] [address] Supervisor [employer]: Saran Lomax M.D. 15 [id number] [facility] TRANSFUSED 09/22/10 1356 16 ANY BLOOD NOT [...] 3 DAYS OF THE SURGERY DATE. 26 [id number] OP PC TRANSFUSED 09/20/10 1136 27 [id number] OP PC TRANSFUSED 09/20/10 1136 28 Recommended [...] change was based on recommendations from the [place] [employer]. 35 Please note change in [...] change was based on recommendations from the [place] [employer]. 45 Please note change in reference range effective 07 . 46 A metabolite of Naproxen, O-desmethylnaproxen, has been shown to interfere with the [place] method for measuring total bilirubin. Samples from [...] 0.06 ng/mL NOT SUPPORTIVE OF DIAGNOSIS OF NM 0.06 - 0.50 ng/ml INDETERMINATE: SUGGEST SERIAL STUDIES IF CLINICALLY INDICATED. Greater than 0.5 ng/mL CONSISTENT WITH DIAGNOSIS OF NM . 49 NRBC 50 Anion gap measurement may be of limited value in the presence of any alkalosis, especially in a combined acid base disorder. . 51 Note change in reference range as of 11/14/07. The change was based on recommendations from the [place] [employer]. 52 Please note change in reference range effective 07 . 53 A metabolite of Naproxen, O-desmethylnaproxen, has been shown to interfere with the [place] method for measuring total bilirubin. Samples from [...] 0.06 ng/mL NOT SUPPORTIVE OF DIAGNOSIS OF NM 0.06 - 0.50 ng/ml INDETERMINATE: SUGGEST SERIAL STUDIES IF CLINICALLY INDICATED. Greater than 0.5 ng/mL CONSISTENT WITH DIAGNOSIS OF NM . 56 Recommended INR for Patients on Oral Anticoagulants Prophylaxis 2.0 - 3.0 Treatment of thrombosis 2.0 - 3.0 Prevention of embolism 2.0 - 3.0 Prevention of embolism from prosthetic heart valves 2.5 - 3.5 57 DIAGNOSIS,TREATMENT,AND THERAPY MUST BE BASED ON THE INR VALUE ALONE. 58 PLEASE NOTE NEW REFERENCE RANGE EFFECTIVE 08. 59 ---- RUN DATE: 01/25/09 [facility] NMI LIVE PAGE 1 RUN TIME: 1346 Specimen Inquiry RUN USER: INTERFACE -- Name: DEION GONZALEZ Status: REG REF Re01/22/09 Age/Sex: 73/F Unit#: [id number] Location: [facility]. : 39 -- Specimen: [id number] SOUT Spec Date: 01/22/[address] [facility] [address]: Pilo ferreira MD Spec Type: SURGICAL P Received: 01/22/09-5623 Copies to: Anam garcia MD SPECIMEN BIOPSY RIGHT COLON POLYP HISTORY POST-OP DIAGNOSIS: Small polyp removed CLINICAL INFORMATION: Rectal bleeding, history of polyp, removed 2006 GROSS DESCRIPTION Specimen received in formalin labelled Deion Perdomo Carla, Right Colon Polyp and consists of several fragments of thomson-brown tissue measuring in aggregate 1.0 x 1.0 x 0.4 cm. Submitted entirely, one cassette. DIAGNOSIS Colon, right, biopsy: A. Tubular adenoma. B. No high grade dysplasia or malignancy. Signed Electronically by: CHASE MOORE MD 01/25/09 0631 -- -- DEPARTMENT OF PATHOLOGY, [address] [place] [address] [facility] Permit #[id number] Chase Moore M.D. Director Raj Acevedo M.D. Rn Navigator Dir fosteror -- 60 PLEASE NOTE NEW REFERENCE RANGE [...] 0.06 ng/mL NOT SUPPORTIVE OF DIAGNOSIS OF NM 0.06 - 0.50 ng/ml INDETERMINATE: SUGGEST SERIAL STUDIES IF CLINICALLY INDICATED. Greater than 0.5 ng/mL CONSISTENT WITH DIAGNOSIS OF NM . 64 Anion gap measurement may be of limited value in the presence of any alkalosis, especially in a combined acid base disorder. . 65 Note change in reference range as of 11/14/07. The change was based on recommendations from the [place] [employer]. 66 Please note change in [...] IN SELECTIVE PATIENTS <6.0%. PLEASE REFER TO [place] [employer] DIABETIC CARE GUIDELINES FOR FURTHER [...] change was based on recommendations from the [place] [employer]. 76 Please note change in [...] dialysis) Procedures Date Code Description Status 01/16/2018 87641 EKG Tracing & Interpretation Completed 12/26/201778066 Inject/Drain Joint/Bursa Major W/O US Completed 12/10/2017 92074 Admin Of Inj Completed 10/22/2017 706068088 Bone Mineral Density Test Completed 08/16/201708302 Inject/Drain Joint/Bursa Major W/O US Completed 06/04/2017 11824 Injection Single Tendon Origin/Insertion Completed 06/04/201759213 Inject/Drain Joint/Bursa Major W/O US Completed 04/13/2017 53516 Admin Of Inj Completed 01/17/2017 32089 EKG Tracing & Interpretation Completed 10/25/2016 65700 Polysomnography Sleep Staging 4+ Parameters W/Cpap Completed 09/12/2016 27438 Admin Of Inj Completed 09/06/2016 16665 Polysomnography Sleep Staging 4+ Parameters Completed 06/14/2016 76048 EKG Tracing & Interpretation Completed 05/03/201630040 Inject/Drain Joint/Bursa Major W/O US Completed 05/03/201610587 Inject/Drain Joint/Bursa Intermediate W/O US Completed 04/10/2016 43166 Chemotherpy Admin Subcutaneous/Im Non-Hormonal Completed Anti-Neoplastic 04/10/2016 40858 Admin Of Inj Completed 09/10/2015 890210192 Bone Mineral Density Test Completed 09/07/2015 87463 Chemotherpy Admin Subcutaneous/Im Non-Hormonal Completed Anti-Neoplastic 07/29/2015 66969 Stress Test Completed 07/29/2015 86082 Myocardial Perfusion Imaging Tomographic (Spect) Completed Multiple Studies 07/16/2015 84401 EKG Tracing & Interpretation Completed 02/15/2015 29660 Chemotherpy Admin Subcutaneous/Im Non-Hormonal Completed Anti-Neoplastic 12/22/2014 62406 Trigger Finger Release Incision / Tendon Sheath Completed Incision 12/22/2014 07011 Trigger Finger Release Incision / Tendon Sheath Completed Incision 12/11/2014 10559 EKG Tracing & Interpretation Completed 08/13/2014 11474 Admin Of Inj Completed 07/06/2014 50851 Treadmill Interp/Report Only Completed 07/06/2014 44584 Stress Test Supervsn W/Out I/R Completed 07/02/2014 78562 ECHO Transthorasic Realtime 2D W Doppler & Color Flow Completed Hosp 07/02/2014 10210 EKG, Interpretation Only Completed 07/01/2014 82119 EKG, Interpretation Only Completed 07/01/2014 38013 EKG, Interpretation Only Completed 06/15/2014 69805 Inject Tendon Sheath Or Ligament Aponeurosis Eg Completed Plantar Fascia 04/09/2014 14419 Inject/Drain Joint/Bursa Major W/O US Completed 01/28/2014 53233 Admin Of Inj Completed 12/29/2013 52829418 Mammogram Completed 12/29/2013 795611942 Bone Mineral Density Test Completed 12/04/2013 13056 Inject Tendon Sheath Or Ligament Aponeurosis Eg Completed Plantar Fascia 11/13/2013 39979 Inject/Drain Joint/Bursa Major W/O US Completed 05/27/2013 56223 EKG Tracing & Interpretation Completed 05/08/2013 90076 Myocardial Perfusion Imaging Tomographic (Spect) Completed Multiple Studies 05/08/2013 06431 Stress Test Completed 05/06/2013 68223 Inject/Drain Joint/Bursa Major W/O US Completed 05/01/2013 29913 ECHO Transthoracic, Real-Time 2D With Doppler And Completed Color Flow 04/29/2013 55620 EKG Tracing & Interpretation Completed 11/28/2012 16515 Inject Tendon Sheath Or Ligament Aponeurosis Eg Completed Plantar Fascia 11/28/201282139 Inject/Drain Joint/Bursa Major W/O US Completed 11/15/2012 47737 EKG Tracing & Interpretation Completed 06/21/2012 58124 Rad Exam; Hip Unilat Completed 06/21/2012 46093 Rad Exam; Hip Unilat Completed 06/21/2012 68935 Rad Exam; Pelvis Completed 06/21/2012 05538 Rad Exam; Pelvis Completed 04/01/2012 67595 Inject/Drain Joint/Bursa Intermediate W/O US Completed 09/20/2011 95991 Rad Shoulder Comp, Min. 2 Views Completed 09/20/201190203 Inject/Drain Joint/Bursa Major W/O US Completed 06/02/2011 81209 Xray Knee 3 Views Completed 06/02/2011 99176 Rad Exam; Knee, Ap&L Completed 11/14/2010 02427 Rad Exam; Knee, Ap&L Completed 11/14/2010 05615 Rad Exam; Both Knees, Standing Ap Completed 10/03/2010 54087 Rad Exam; Knee, Ap&L Completed 10/03/2010 86446 Rad Exam; Both Knees, Standing Ap Completed 10/03/2010 33085 Rad Exam; Toes Completed 09/20/2010 45150 Revision TKA W Or W/O Allograft;Femoral & Entire Completed Tibial Component 09/20/2010 07903 Revision TKA W Or W/O Allograft;Femoral & Entire Completed Tibial Component 09/07/2010 88537 Xray Knee 3 Views Completed 09/07/2010 Inject/Drain Joint/Bursa Major W/O US Completed 02/23/201037215 Inject/Drain Joint/Bursa Major W/O US Completed 02/16/2010 29205 Xray Knee 3 Views Completed 02/16/2010 62396 Rad Exam; Knee, Ap&L Completed 01/22/2009 93830499 Colonoscopy Completed Encounters Type Date Location Provider Dx Diagnosis Office Visit 02/25/2018 [facility] Patience Davila, M48.062 Spinal stenosis, 9:00a Of [employer] PA-C lumbar region with neurogenic claudication M48.04 Spinal stenosis, thoracic region Office Visit 01/23/2018 [facility] Yayo M48.05 Spinal stenosis, 8:37a Assoc,pc [place] thoracolumbar Hospitalists region G95.89 Other specified diseases of spinal cord [...] fall, initial encounter Office Visit 01/22/2018 8:36a [facility] Rachel Medellin, R53.1 Weakness Assoc,pc Hospitalists LINOTYPE OPERATOR I10 Essential (primary) hypertension E11.9 Type 2 diabetes mellitus without complications I25.10 [facility] heart disease of [place] coronary artery w/o ang pctrs D64.9 Anemia, unspecified M25.512 Pain in left shoulder M48.05 Spinal stenosis, thoracolumbar region Office Visit 01/21/2018 Neurohospitalist Lenora Mccarty, 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 disease of [place] coronary artery w/o ang pctrs R94.31 Abnormal electrocardiogram [ECG] [EKG] Office Visit 10/15/2017 Rheumatology Zsofia M81.0 Age-related 1:30p Services Of RAY Toro osteoporosis w/o Naren current pathological fracture Office Visit 07/13/2017 [facility] Carson Anderson I25.10 Athscl heart 10:30a Of Flash Hartley M.D. 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, left shoulder Office Visit 05/22/2017 11:40a [facility], Herman Burrell MD K92.1 [facility] Hospitalists E11.59 Type 2 diabetes mellitus with oth circulatory complications K57.31 Dvrtclos of lg int w/o perforation or abscess w bleeding I25.10 Athscl heart disease of [place] coronary artery w/o ang pctrs Office Visit 05/21/2017 11:39a [facility] Assoc, Herman Burrell MD K92.1 [facility] Hospitalists E11.59 Type 2 diabetes mellitus with oth circulatory complications K57.31 Dvrtclos of lg int w/o perforation or abscess w bleeding I25.10 Athscl heart disease of [place] coronary artery w/o ang pctrs Office Visit 05/20/2017 11:38a [facility]oc, Herman Burrell MD K92.1 [facility] Hospitalists E11.59 Type 2 diabetes mellitus with oth circulatory complications K57.31 Dvrtclos of lg int w/o perforation or abscess w bleeding I25.10 Athscl heart disease of [place] coronary artery w/o ang pctrs Office Visit 05/19/2017 11:37a [facility] Assoc, [place] Jessica K92.1 [facility] Hospitalists D.O. E11.59 Type 2 diabetes mellitus with oth circulatory complications K57.31 Dvrtclos of lg int w/o perforation or abscess w bleeding I25.10 Athscl heart disease of [place] coronary artery w/o ang pctrs Office Visit 04/23/2017 Orthopedic Debra M77.01 Medial 10:00a Services Of [place], RPA-C epicondylitis, right C.M.A. 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 disease of [place] coronary artery w/o ang pctrs N18.9 Chronic kidney disease, unspecified I12.9 Hypertensive chronic kidney disease w stg 1-4/unsp chr kdny Office Visit 11/21/2016 Pulmonology And Melony G47.33 Obstructive sleep 10:45a Sleep Services Of COLLEEN Noriega RN, apnea (adult) [facility]- (pediatric) G47.14 Hypersomnia due to medical condition Office Visit 09/29/2016 Pulmonology And Melony G47.33 Obstructive sleep 10:00a Sleep Services Of COLLEEN Noriega RN, apnea (adult) [facility]- (pediatric) G89.29 Other chronic pain G47.14 Hypersomnia due to medical condition F40.240 Claustrophobia E66.09 Other obesity due to excess calories Z68.36 Body mass index (BMI) 36.0-36.9, adult Office Visit 09/12/2016 10:00a Rheumatology Kimberlyofiyoni M81.0 Age-related Services Of [facility] [place], TOMOGRAPHIC TECH osteoporosis w/o current pathological fracture Z92.29 Personal history of other drug therapy M54.5 Low back pain Office Visit 08/16/2016 2:40p Rheumatology Nadine Toro, M79.604 Pain in Services Of [facility] TOMOGRAPHIC TECH right leg M81.0 Age-related osteoporosis w/o current pathological fracture M54.42 Lumbago with sciatica, left side Office Visit 08/08/2016 8:45a Pulmonology And Kim R06.81 Apnea, not Sleep Services Of MD Henri elsewhere [facility] classified R06.83 Snoring R40.0 Somnolence R51 Headache G47.8 Other sleep disorders R12 Heartburn E66.09 Other obesity due to excess calories Z68.37 Body mass index (BMI) 37.0-37.9, adult Office Visit 07/21/2016 11:00a [facility] Xiomy Wilson, PA I25.10 [facility] heart Of [facility] disease of [place] coronary artery w/o ang pctrs N18.9 Chronic kidney disease, unspecified I12.9 Hypertensive chronic kidney disease w stg 1-4/unsp chr kdny Office Visit 06/14/2016 9:00a [facility] Xiomy Steve, R07.9 Chest pain, Of [facility] PA unspecified I25.10 Athscl heart disease of [place] coronary artery w/o ang pctrs N18.9 Chronic [...] Toro, R21 Rash and other Services Of TOMOGRAPHIC TECH nonspecific skin [facility] eruption M81.0 Age-related osteoporosis w/o current pathological fracture E55.9 Vitamin D deficiency, unspecified Z79.899 Other shelter (current) drug therapy Office Visit 12/08/2015 11:00a Rheumatology Zsofia M81.0 Age-related Services Of [employer] [place], TOMOGRAPHIC TECH osteoporosis w/o current pathological fracture E55.9 Vitamin D deficiency, unspecified N18.3 Chronic kidney disease, stage 3 (moderate) Z79.899 Other shelter (current) drug therapy Office Visit 09/07/2015 11:30a Rheumatology Zsofia M81.0 Age-related Services Of [employer] [place], TOMOGRAPHIC TECH osteoporosis w/o current pathological fracture K21.9 Gastro-esophageal reflux disease without esophagitis N18.3 Chronic kidney disease, stage 3 (moderate) E55.9 Vitamin D deficiency, unspecified Z92.29 Personal history of other drug therapy Office Visit 08/20/2015 9:30a [facility] Carson Anderson 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 disease of [place] coronary artery w/o ang pctrs R07.9 Chest pain, unspecified Office Visit 07/16/2015 9:15a [facility] Carson Anderson 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 disease of [place] coronary artery w/o ang pctrs I10 Essential [...] osteoporosis w/o current pathological fracture Z79.899 Other shelter (current) drug therapy M79.7 Fibromyalgia Office Visit 02/12/2015 11:00a [facility] Carson Anderson I10 Essential (primary) Of Flash Hartley M.D. hypertension I25.10 Athscl heart disease of [place] coronary artery w/o ang pctrs Office Visit 01/15/2015 [facility] K92.2 Gastrointestinal 10:32a Assoc,immanuel [place], LINOTYPE OPERATOR hemorrhage, Hospitalists unspecified E13.9 Other specified diabetes mellitus without complications I10 Essential (primary) hypertension Office Visit 01/14/2015 [facility] K92.2 Gastrointestinal 10:30a Assoc,immanuel [place], LINOTYPE OPERATOR hemorrhage, Hospitalists unspecified E13.9 Other specified diabetes mellitus without complications I10 Essential (primary) hypertension Office Visit 12/11/2014 3:30p [facility] BLACK Arevalo 727.03 Trigger Finger Of Drill Runner Helper Acquired 401.9 Hypertension Unspec 414.00 Coronary Atherosclerosis Unspec Type Vessel [place] 715.09 Osteoarthrosis Generalized Multiple Sites V72.81 Examination Preoperative Cardiovascular Office Visit 12/09/2014 1:30p Orthopedic Services Of Lore Higginbotham, 724.2 Lumgonzalo KayMEladioAEladio RPA-C 727.03 Trigger Finger Acquired Office Visit 10/26/2014 1:22p [facility] 584.9 Acute Kidney Assoc,immanuel Bhagat M.D. Failure, Hospitalists Unspecified 786.05 Shortness Of Breath 276.8 Hypopotassemia 401.9 Hypertension Unspec [facility] Acute Kidney 1:21p Assoc,immanuel BOB M.D. Failure, Hospitalists Unspecified 786.05 Shortness Of Breath 276.8 Hypopotassemia 401.9 Hypertension Unspec Office Visit 10/16/2014 [facility] 562.12 Diverticulosis 11:43a immanuel Phan M.D. Colon W/ Hemorrhage Hospitalists 401.9 Hypertension Unspec Office Visit 10/15/2014 [facility] 562.12 Diverticulosis 11:43a immanuel Phan M.D. Colon W/ Hemorrhage Hospitalists 414.00 Coronary Atherosclerosis Unspec Type Vessel [place] 401.9 Hypertension Unspec Office Visit 10/14/2014 [facility] 562.12 Diverticulosis 11:42a immanuel Phan M.D. Colon W/ Hemorrhage Hospitalists 414.00 Coronary Atherosclerosis Unspec Type Vessel [place] 401.9 Hypertension Unspec Office Visit 10/13/2014 [facility] 562.12 Diverticulosis 11:41a immanuel Phan M.D. Colon W/ Hemorrhage Hospitalists 414.00 Coronary Atherosclerosis Unspec Type Vessel [place] 401.9 Hypertension Unspec Office Visit 10/12/2014 [facility] 562.12 Diverticulosis 11:41a immanuel Phan M.D. Colon W/ Hemorrhage Hospitalists 414.00 Coronary Atherosclerosis Unspec Type Vessel [place] 401.9 Hypertension Unspec Office Visit 10/11/2014 [facility] 562.12 Diverticulosis 11:40a immanuel Phan M.D. Colon W/ Hemorrhage Hospitalists 414.00 Coronary Atherosclerosis Unspec Type Vessel [place] 401.9 Hypertension Unspec Office Visit 08/13/2014 Rheumatology Phillip Sheffield, 733.01 Osteoporosis 10:20a Services Of Flash Scott Senile 724.00 Spinal Stenosis Unspec Region 338.4 Chronic Pain Syndrome 715.09 Osteoarthrosis Generalized Multiple Sites Office Visit 07/06/2014 [facility] 578.9 Hemorrhage 12:48p immanuel Phan M.D. Gastrointestinal Hospitalists Tract Unspec 530.81 Esophageal Reflux 285.1 Anemia Posthemorrhagic Acute 276.8 Hypopotassemia Office Visit 07/05/2014 [facility] 578.9 Hemorrhage 12:45p immanuel Phan M.D. Gastrointestinal Hospitalists Tract Unspec 276.8 Hypopotassemia 285.1 Anemia Posthemorrhagic Acute Office Visit 07/05/2014 2:08p [facility] Qutaybeh SEladio 414.9 Ischemic Heart Tyler Gordon Disease Chronic Unspec 794.31 Electrocardiogram (ECG) (EKG) Abnormal 401.1 Hypertension Benign V45.82 Percutaneous Transluminal Coronary Angioplas Postsurg Status Office Visit 07/04/2014 [facility] 578.9 Hemorrhage 12:45p immanuel Phan M.D. Gastrointestinal Hospitalists Tract Unspec 530.81 Esophageal Reflux 285.1 Anemia Posthemorrhagic Acute 276.8 Hypopotassemia Office 07/03/2014 [facility] Oracio Steinberg 425.11 Hypertrophic Visit 3:45p Of Flash Danielle M.D., Obstructive FACC, FASNC Cardiomyopathy Office 07/03/2014 [facility] 578.9 Hemorrhage Visit 12:44p immanuel Phan M.D. Gastrointestinal Hospitalists Tract Unspec 584.9 Acute Kidney Failure, Unspecified 530.81 Esophageal Reflux 285.1 Anemia Posthemorrhagic Acute Office Visit 07/02/2014 [facility] Lucia 578.9 Hemorrhage 12:42p Assimmanuel clark, Gastrointestinal Hospitalists Tract Unspec 530.81 Esophageal Reflux 786.50 Pain Chest Unspec 285.1 Anemia Posthemorrhagic Acute Office Visit 07/02/2014 10:33a [facility] Jacquelyn [place], 780.2 Syncope & Of Flash Scott Collapse 414.9 Ischemic Heart Disease Chronic Unspec Office Visit 07/01/2014 [facility] Lucia 578.9 Hemorrhage 12:42p Assoc,immanuel Cheek DO Gastrointestinal Hospitalists Tract Unspec 584.9 Acute Kidney Failure, Unspecified 530.81 Esophageal Reflux 285.1 Anemia Posthemorrhagic Acute Office Visit 06/30/2014 [facility] Naeem Reid, 578.9 Hemorrhage 12:41p Assoc,immanuel Scott [...] Replacement By Other Means Office Visit 05/27/2014 [facility] 414.01 Coronary 10:30a Cardiology Of Tyler Hartley Atherosclerosis [facility] [place] 401.9 Hypertension Unspec Office Visit 04/23/2014 Rheumatology [...] 726.10 Bursae & Tendon 11:00a Services Of Drill Runner Helper M.D. Disorders Shoulder Region Unspec 733.00 Osteoporosis Unspec 724.00 Spinal Stenosis Unspec Region 729.1 Myalgia & Myositis Unspec 715.09 Osteoarthrosis Generalized Multiple Sites 585.3 Chronic Kidney Disease Stage III Moderate Office Visit 12/11/2013 1:45p [facility] Carson Anderson 786.50 Pain Chest Of Flash Hartley M.D. Unspec 401.9 Hypertension Unspec 414.01 Coronary Atherosclerosis [place] Office Visit 12/04/2013 Orthopedic Krystle 727.03 Trigger [...] Not Elsewhere Class Office Visit 05/27/2013 1:45p [facility] Carson Anderson 786.50 Pain Chest Of [employer]ner Helper [place] [facility] Tyler Hartley Unspec 401.9 Hypertension Unspec 786.05 Shortness Of Breath Office Visit 05/12/2013 10:26a [facility] [place] 786.51 Pain Precordial Assoc,pc Ritchie Jessica Hospitalists 785.1 Palpitations 278.01 Obesity Morbid Office Visit 05/11/2013 10:26a [facility] [place] 786.51 Pain Precordial Assoc,pc Jaskaran D.O. Hospitalists 785.1 Palpitations 278.01 Obesity Morbid Office Visit 05/06/2013 11:15a Orthopedic Lula Ferrari 718.81 Derangement Joint Services Of JOSE Other Not C.M.A. Elsewhere Class Shoulder 726.10 Bursae & Tendon Disorders Shoulder Region Unspec 726.2 Shoulder Region Affections Other Not Elsewhere Class Office Visit 04/29/2013 1:15p [facility] Carson Anderson 786.50 Pain Chest Of [employer]per [place] [facility] Tyler Hartley Unspec 786.05 Shortness Of Breath 414.01 Coronary Atherosclerosis [place] 401.9 Hypertension Unspec Office Visit 11/28/2012 11:15a Orthopedic Krystle Crisostomo 727.82 Calcium Services Of Tyler Deposits Tendon C.M.A. & Bursa 727.03 Trigger Finger Acquired 726.2 Shoulder Region Affections Other Not Elsewhere Class Office Visit 11/15/2012 10:15a [facility] Carson D. 414.9 Ischemic Heart Of [...] Of C.M.A. RPA-C Medial Office Visit 01/26/2012 [facility] Renita 786.51 Pain Precordial 12:43p Assoc,immanuel De Jesus M.D. Hospitalists 414.01 Coronary Atherosclerosis [place] 401.9 Hypertension Unspec Office Visit 01/25/2012 12:43p [facility] Naeem Reid 786.51 Pain Precordial Assoc,immanuel Scott Hospitalists 414.01 Coronary Atherosclerosis [place] 401.9 Hypertension Unspec 272.2 Hyperlipidemia Mixed Office [...] Leg Office Visit 11/01/2009 DO Not Use [employer] Jamisonananda, 272.4 Hyperlipidemia Other 10:00a AT Sybil Sol MD Unspec 414.01 Coronary Atherosclerosis [place] Office Visit 10/14/2009 10:00a DO Not Use [employer]per Linknda, 530.81 Esophageal AT Sybil Sol MD Reflux 599.0 UTI Urinary Tract Infection Site Not Spec 272.4 Hyperlipidemia Other Unspec Office Visit 07/09/2009 1:20p DO Not Use [employer] Kennethanorenetta, 112.1 Candidiasis The AT Sybil Mendieta M.D. 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 Unspec Hospitalists Office Visit 04/30/2009 2:30a [facility] Renita 786.50 Pain Chest Assoc,immanuel De Jesus M.D. Unspec Hospitalists 401.9 Hypertension Unspec Office Visit 04/29/2009 2:15a [facility] 786.50 Pain Chest Unspec Assoc,immanuel De Jesus M.D. Hospitalists Office Visit 04/19/2009 3:00p Neurosurgery Rob Johnson 721.0 Spondylosis Services Of Flash Salguero M.D. Cervical W/O Myelopathy Office Visit 03/22/2009 9:40a DO Not Use Dr[employer] Runner Helper AT [place] 307.42 Sleep Disorder Sybil Mendieta M.D. 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 Cervical W/O Myelopathy Office Visit 01/08/2009 11:00a DO Not Use [employer]ner Helper Eusebio Barroso.42 Sleep Disorder AT Sybil Mendieta M.D. 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 Mellitus W/O Compl Type II Or Unspec Controlled 278.00 Obesity Unspec 401.9 Hypertension Unspec 272.4 Hyperlipidemia Other Unspec 716.86 Arthropathy Other Spec Lower Leg 530.81 Esophageal Reflux 414.01 Coronary Atherosclerosis [place] 412 Myocardial Infarction Old 565.0 Anal Fissure Plan of Treatment Future Appointment(s):02/27/2018 10:00 am - Stephen Calixto M.D. at [facility]04/15/2018 11:30 am - RAY Pak at Rheumatology Services Of [facility]02/25/2018 - BLACK Crowder-CM48.062 Spinal stenosis, lumbar region with neurogenic [id number] Spinal stenosis, thoracic regionFollow up:with Dr. Calixto Wed AM to discuss surgery
[2018-03-13] MEDS: Heparin VIAL(*) 5000 UNITS/ML VIAL (FIVE THOUSAND) SUBCUT SCH (22:52)
[2018-03-14] MEDS: oxyCODONE/Acetamin 5/325 MG* TAB PO PRN ×3 (04:32→14:24)
[2018-03-14] MEDS: Heparin VIAL(*) 5000 UNITS/ML VIAL (FIVE THOUSAND) SUBCUT SCH (06:11)
--- NOTE | 2018-03-14 08:17 | PN ---
Progress Note - Progress Note Date of Service: 03/14/18 SOAP: Subjective: [S/p decompressive thoracic laminectomy, POD #1. Pre-op lower extremity weakness improving. Feeling well, pain well controlled. Denies headche, nausea Eating and drinking well. Unable to get out of bed secondary to weakness.] Objective: [ Vital Signs: Temp Pulse Resp BP Pulse Ox 98.3 F 59 16 144/65 100 03/14/18 03:36 03/14/18 03:36 03/14/18 06:12 03/14/18 03:36 03/14/18 03:36 General: Alert and laying comfortably in bed. Neuro: Weakness persistent, dorsiflexion and plantarflexion improved. Sensation intact Incision: Intact with opal. No swelling. Wound drain discontinued today Wound drain output 03/12/18 03/12/18 03/13/18 19:00 21:44 04:08 Output, RIYA #1 25 15 12 03/13/18 03/13/18 03/13/18 08:35 12:00 14:00 Output, RIYA #1 30 10 10 03/13/18 03/13/18 18:00 22:00 Output, RIYA #1 5 10 ] Assessment: [Satisfactory post-op. Weakness improving.] Plan: [1. Discharge back to [facility] today. 2. Discharge instructions discussed.]
[2018-03-14] MEDS ORDERED: Aspirin EC TAB* 81 MG TAB.EC PO SCH (09:00)
[2018-03-14] MEDS: Insulin LISPRO* 1 UNITS UNIT SUBCUT SCH ×2 (10:00→14:03)
[2018-03-14] MEDS: hydrALAZINE TAB* 10 MG PO SCH ×2 (10:17→14:22)
[2018-03-14] MEDS: Polyethylene Glycol 3350* 17 GM PACKET PO SCH (10:18)
[2018-03-14] MEDS: Lisinopril TAB* 10 MG PO SCH (10:18)
[2018-03-14] MEDS: Docusate CAP* 100 MG PO SCH (10:18)
[2018-03-14] MEDS: Gabapentin CAP(*) 100 MG PO SCH ×2 (10:18→14:22)
[2018-03-14] MEDS: Senna TAB PO SCH (10:18)
[2018-03-14] MEDS: Diltiazem CD CAP* 180 MG PO SCH (10:18)
[2018-03-14] MEDS: Omeprazole CAP (NF) 20 MG CAP.DR PO SCH (10:19)
--- NOTE | 2018-03-14 12:48 | PN ---
Subjective Date of Service: 03/14/18 Interval History: Pt seen and examined. Meds and labs reviewed. CC: N/A ROS: Denied FARIAS/dizziness, F/C, N/V, CP, SOB, increased cough, sputum production , abd pain, diarrhea, constipation, dysuria, myalgias, arthralgias, throat pain , and new skin lesions. The rest of the 14 point ROS are unremarkable. PHYSICAL EXAM: GEN APPEARANCE: Awake, not in acute distress HEENT: NC/AT, PERRLA, moist oral mucosa, (-) throat erythema NECK: Soft, supple, (-) cervical LAD, (-)JVD HEART: S1S2 WNL, RRR, No MRG CHEST: CTA, BL, GAE, No W/R/R ABD: Soft, ND/NT, NABS 4x Q EXT: No C/C/E SKIN: Warm to touch PSYCH: No active psychosis, hallucinations, depression, SI/HI Family History: Unchanged from Admission Social History: Unchanged from Admission Past Medical History: Unchanged from Admission Objective Active Medications: Acetaminophen (Tylenol Tab*) 650 mg PO Q4H PRN PRN Reason: PAIN Aspirin (Aspirin Ec Tab*) 81 mg PO QAM [facility] Last Admin: 03/14/18 10:18 Dose: 81 mg Dextrose (D50w Syringe 50 Ml*) 12.5 gm IV PUSH .FOR FS < 60 - SS PRN PRN Reason: FS < 60 Diltiazem HCl (Cardizem Cd Cap*) [facility] Last Admin: 03/14/18 10:18 Dose: 180 mg Docusate Sodium (Colace Cap*) 100 mg PO QAM [facility] Last Admin: 03/14/18 10:18 Dose: 100 mg Gabapentin (Neurontin Cap(*)) 100 mg PO TID [facility] Last Admin: 03/14/18 10:18 Dose: 100 mg Heparin Sodium (Porcine) (Heparin Vial(*)) 5,000 units SUBCUT Q12H [facility] Hydralazine HCl (Apresoline Tab*) 5 mg PO TID [facility] Last Admin: 03/14/18 10:17 Dose: 5 mg Hydralazine HCl (Apresoline Iv*) 10 mg IV SLOW PU Q6H PRN PRN Reason: SBP>170 Last Admin: 03/12/18 17:40 Dose: 10 mg Insulin Human Lispro (Humalog*) 0 units SUBCUT ACHS [facility]; Protocol Last Admin: 03/14/18 10:00 Dose: Not Given Lisinopril (Prinivil Tab*) 10 mg PO QAM [facility] Last Admin: 03/14/18 10:18 Dose: 10 mg Magnesium Hydroxide (Milk Of Magnesia Liq*) 30 ml PO Q4H PRN PRN Reason: CONSTIPATION Nitroglycerin (Nitroglycerin Tab 0.4 Mg*) 0.4 mg SL Q5M PRN PRN Reason: PAIN - CHEST Omeprazole (Prilosec Cap*) 20 mg PO BID [facility] Last Admin: 03/14/18 10:19 Dose: 20 mg Ondansetron HCl (Zofran Inj*) 4 mg IV Q6H PRN PRN Reason: NAUSEA/VOMITING Oxycodone/Acetaminophen (Percocet 5/325 Tab*) 2 tab PO Q4H PRN PRN Reason: PAIN Last Admin: 03/14/18 10:19 Dose: 2 tab Polyethylene Glycol/Electrolytes (Miralax*) 17 gm PO DAILY [facility] Last Admin: 03/14/18 10:18 Dose: 17 gm Senna (Senokot Tab*) 1 tab PO QAM [facility] Last Admin: 03/14/18 10:18 Dose: 1 tab Travoprost (Travatan Z 0.004% Opth (Nf)) 1 drop BOTH EYES BEDTIME [facility]; Protocol Last Admin: 03/13/18 22:47 Dose: Not Given Vital Signs - 8 hr 03/14/18 03/14/18 03/14/18 06:12 07:21 08:00 Temperature 98.4 F Pulse Rate 55 Respiratory 16 18 16 Rate Blood Pressure 143/59 (mmHg) O2 Sat by Pulse 100 100 Oximetry 03/14/18 03/14/18 03/14/18 10:00 10:18 10:19 Temperature Pulse Rate Respiratory 16 16 16 Rate Blood Pressure (mmHg) O2 Sat by Pulse 96 Oximetry 03/14/18 03/14/18 11:26 12:00 Temperature 98.4 F Pulse Rate 61 Respiratory 18 18 Rate Blood Pressure 165/75 (mmHg) O2 Sat by Pulse 100 100 Oximetry Oxygen Devices in Use Now: None Microbiology and Other Data: Microbiology 03/13/18 00:30 Nasal Screen MRSA (PCR) - Final Nasal Mrsa Not Detected Assess/Plan/Problems-Billing Assessment: Mrs. 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 - Patient Problems (1) S/P laminectomy Current Visit: Yes Status: Acute Code(s): Z98.890 - OTHER SPECIFIED POSTPROCEDURAL STATES SNOMED Code(s): 519193859 Comment: - T10-11 laminectomy - management as per Neurosurgery. (2) HTN (hypertension) Current Visit: Yes Status: Acute Code(s): I10 - ESSENTIAL (PRIMARY) HYPERTENSION SNOMED Code(s): 64933456 Comment: - Continue Lisinopril, Diltiazem, and Hydralazine. - Continue to monitor. - D/c Telemetry. (3) Diabetes mellitus Current Visit: No Status: Acute Code(s): E11.9 - TYPE 2 DIABETES MELLITUS WITHOUT COMPLICATIONS SNOMED Code(s): 11831501 Comment: Controlled. - Continue FS and Lispro SS. (4) CAD (coronary artery disease) Current Visit: Yes Status: Acute Code(s): I25.10 - ATHSCL HEART DISEASE OF [place] CORONARY ARTERY W/O ANG PCTRS SNOMED Code(s): 87741320 Comment: -Continue ASA and Lisinopril (5) DVT prophylaxis Current Visit: Yes Status: Acute Code(s): JIJ6617 - SNOMED Code(s): 302755360 Comment: -Decreased frequency of SQ Heparin to q12H given advanced age Status and Disposition: -Defer with NeuroSx team and for D/C back to [facility] today
--- NOTE | 2018-03-14 15:22 | DS ---
DATE OF ADMISSION: 03/12/2018. DATE OF DISCHARGE: 03/14/2018. ATTENDING PHYSICIAN: Dr. Stephen Calixto * (dictated by BLACK Martin). DISCHARGE DIAGNOSES: 1. Thoracic spinal stenosis. 2. Diabetes. 3. Coronary artery disease. 4. Hypertension. 5. History of DVT. SPECIAL PROCEDURES: Decompressive thoracic laminectomy T10-11. HOSPITAL COURSE: This 82-year-old female was initially seen while admitted to the [facility] on 01/22/2018. At that time, she had lower extremity weakness likely related to the T10-11 stenosis. Treatment options were discussed and she wished to proceed with rehab and physical therapy, rather than surgical intervention. She was later seen in our office earlier this month and had failed to improve at rehab. The lower extremity weakness had progressed and she was unable to stand or ambulate on her own. At this time, she decided to proceed with the proposed procedure of a decompressive thoracic laminectomy at T10-11. On the day of admission, she was taken to surgery where under general anesthesia the decompressive thoracic laminectomy of T10-11 operation was carried out. Postoperatively, the lower extremity weakness was improving, especially in the dorsiflexion and plantarflexion of the feet. She was feeling well and she was eating and drinking and voiding without difficulty, although she did have some urinary incontinence which was present preoperatively. On the second postoperative day, the wound drain was discontinued and she is discharged back to [facility] where she was residing after being discharged from [facility] in December. She will continue to participate in rehab while there. DISCHARGE INSTRUCTIONS: Wound care and activity level were discussed with the patient and information on this was provided. The dressing can be discontinued in three days. Do not soak in a bathtub. DISCHARGE MEDICATIONS: Recommend Percocet 5/325 mg two tabs by mouth every 4 hours as needed for pain. BLACK MARTIN [id number]/[facility] #: [id number] MTDD
[2018-03-14 16:02] VITALS: BP 137/48
[2018-03-14] MEDS ORDERED: Heparin VIAL(*) 5000 UNITS/ML VIAL (FIVE THOUSAND) SUBCUT SCH (18:00)
--- NOTE | 2018-04-09 03:52 | OP ---
DATE OF OPERATION: 03/12/18 - ROOM #335 DATE OF : 39 SURGEON: Dr. Stephen Calixto. MANAGER ENGAGEMENT: BLACK Crowder. ANESTHESIA: General. PRE-OP DIAGNOSIS: Thoracic stenosis with myelopathy, T10-11. POST-OP DIAGNOSIS: Thoracic stenosis with myelopathy, T10-11. OPERATIVE PROCEDURE: Thoracic decompressive laminectomy, T10-11. DESCRIPTION OF PROCEDURE: After satisfactory general anesthesia was obtained, the patient was placed on the operating room table in a prone position with the chest supported on Gregory frame and the back slightly flexed. The lumbar region was then clipped, prepped and draped in a sterile manner for thoracic laminectomy and a skin incision outlined from T10-T11. This incision was infiltrated with 1% Xylocaine with epinephrine, after which it was extended sharply to the level of the thoracic fascia. The fascia was divided along the spinous processes from T10-T11 and the paraspinal musculature stripped away from these posterior elements using the periosteal elevator and monopolar cautery. An intraoperative x-ray was obtained verifying proper interspace localization, after which the spinous process of T10 and the superior aspect of the spinous process of T11 were removed. Utilizing the [employer] Manuel drill, remaining portion at the base of the spinous process of T10 and the medial aspect of the facet complex was thinned out. A decompression was then carried out with the Kerrison rongeur. This was carried superiorly until all of the posterior elements of T10 had been removed. There was noted to be marked cord compromise at this level. The most superior aspect of T11 was also removed. At that point, it was felt that a satisfactory decompression had been achieved. The pathology at this level was a combination of thickened ligamentum flavum as well as bony hypertrophy. Generous foraminotomy was then carried out bilaterally. After assuring adequate hemostasis, the wound was thoroughly irrigated, after which a drain was placed in the epidural space and tunneled out toward the left side. The fascia was then reapproximated with 0 Vicryl suture. The subcutaneous tissue was closed with three 0 Vicryl sutures and the skin closed with skin clips. The estimated blood loss was 100 cc and the final sponge, adeola, and needle counts were correct. The patient was taken to the recovery room, extubated, and in stable condition. [id number]/[facility] #: [id number] [facility]
== END 2018-03-14 17:54 ==
LOC: OR 13:47 → SSU 19:34 → OR 03-13 07:28 → INTOOBSV 03-13 07:29 → SSU 03-13 07:29
PROVIDERS: ADMIT Neurological Surgery; ATTEND Neurological Surgery
DX: M48.04 Spinal stenosis, thoracic region (principal); E11.9 Type 2 diabetes mellitus without complications; I25.10 Atherosclerotic heart disease of native coronary artery without angina pectoris; I10 Essential (primary) hypertension; Z86.718 Personal history of other venous thrombosis and embolism; Z98.890 Other specified postprocedural states; Z79.82 Long term (current) use of aspirin; Z88.0 Allergy status to penicillin
CPT/HCPCS: 72070; 87641; 96374; A9270-GY; G0378; G8978-GP-CM; G8979-GP-CK; J0330; J0360; J1100; J1644; J2250; J2405; J2704; J3010

== ENCOUNTER 2018-06-20 11:53 | Observation (INO) | payer MEDICARE ==
--- OUTSIDE RECORDS SUMMARY | 2018-06-20 12:13 | XMS REPORT | Continuity of Care Document ---
:1935 External Reference #:[id number] Author Name Andres Cruz M.D. Address [address] [place] [address] Care Team Providers Name Role Phone Gal Villa D.O. Primary Care Physician Unavailable Payers Date Identification Numbers Payment Provider Subscriber Effective: 1989 Policy Number: [id number] Medicare - [facility] Neris Perdomo PayID: [id number] [address] [place] [id number] Advance Directives Description No Information Available Problems Date Description Provider Status Onset: Gastroesophageal reflux disease Active Onset: Asthma Active Onset: 03/26/1997 Type 2 diabetes mellitus Active Onset: Essential hypertension Active Onset: Osteoarthritis Active Onset: Angina pectoris Active Onset: Diverticulitis of colon Active Onset: Partial resection of colon Active Note: Nov 2014 Onset: 02/26/2015 Primary open-angle glaucoma, Andres Cruz M.D. 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 Active Onset: 03/31/2015 Chronic allergic conjunctivitis Bailey Andrea O.D. Active Onset: 11/12/2015 Epidemic hemorrhagic conjunctivitis Bailey Andrea O.D. 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 Work Status Disabled ETOH Use Denies alcohol use Tobacco Use Start: Unknown Patient has never smoked Recreational Drug Use Denies Drug Use Smoking Status Reviewed: 06/14/18 Patient has never smoked Allergies, Adverse Reactions, Alerts Date Description Reaction Status Severity Comments 02/26/2015 Penicillin Urticaria Active Medications Medication Date Status Form Strength Qnty SIG Indications Ordering Provider Diltiazem HCL Active Caps ER 24HR 180mg Unknown ER Coated Beads Tramadol HCL Active Tablets 50mg Unknown / Potassium Active Tablets ER 10Meq Unknown Chloride ER Triamcinolone Active Cream 0.025% Unknown Acetonide Valacyclovir Active Tablets 500mg Unknown HCL Nitrostat Active Tablets Sub 0.4mg Unknown Calcium 500 Active Tablets 500-250-2 1 Tab PO Unknown 00mg-mg-U Daily nit Ibuprofen Active Tablets 800mg Cortez, Zsofia VEGETABLE THINNER Oxycodone-Acet Active Tablets 5-325mg Unknown aminophen Senna Active Tablets 8.6mg Hektor, Chloe P.A. Polyethylene Active Powder 3350NF Mix And Unknown Glycol 3350 /0000 Drink 1 Capful In 6 Ounces Of Fluid Daily For Constipation Latanoprost Active Solution 0.005% 5unit Instill 1 Andres J. / s Drop In Each Arleo, Eye Every M.D. Night Lisinopril Active Tablets 10mg Unknown / Aspirin Ec Active Tablets DR 81mg 1 pill daily / for heart disease prevention Multiple Active Tablets Unknown Vitamins / Ferrous Active Tablets 325(65Fe) Unknown Sulfate / mg Loratadine Active Capsules 10mg 1 daily in Unknown /0000 in the morning Omeprazole Active Capsules DR 20mg Unknown /0000 Cod Liver Oil Active Capsules Unknown /0000 Calcium 00 Active Tablets 600-400mg Unknown Carbonate-Hannah /0000 -Unit min D Prolia Active Solution 60mg/ml Unknown / Hydralazine Active Tablets 10mg Unknown HCL /0000 Baclofen Active Tablets 10mg Unknown /0000 Gabapentin Active Capsules 100mg Unknown / Lasix Active Tablets 20mg 1 by mouth every day (per pt and 02/04/16 [facility] dc list pt taking 10 mg qd) Magnesium Active Powder Unknown Hydroxide / Sorbitol Active Solution 70% Unknown Milk Of Active Suspension 2400mg/10 Unknown Magnesia / ML Concentrate Dulcolax Active Suppository 10mg Unknown / Guaifenesin Active Liquid 100mg/5ML as needed Unknown Ipratropium Active Solution 0.5-2.5(3 Unknown [place] / )mg/3ML rol Sulfate Acetaminophen Active Tablets 325mg Unknown / Latanoprost 07/24 Hx Solution 0.005% 2.5un 1 drop both Kaye J. /2016 its eyes every [place], - night O.D. 07/25 Travatan Z 04/13 Hx Solution 0.004% 5ml 1 drop both Kaye J. eyes every [place], - night O.D. 08/24 Artificial 04/07 Hx Solution 0.1-0.3% 1 drop 2-3 Bailey K. Tears /2015 times daily [place], - O.D. 03/27 Travoprost 04/05 Hx Solution 0.004% 90day 1 drop both Bailey Maya. /2015 eyes every Emre, - night O.D. 04/05 Latanoprost 04/05 Hx Solution 0.005% 90day 1 drop both Andres Dee. /2015 eyes every Arleo, - night M.D. 04/13 Travatan Z 02/25 Hx Solution 0.004% 15ml 1 drop both Bailey K. /2014 eyes every [place], - night O.D. 04/02 Cod Liver Oil 02/25 Hx Capsules 1000mg 3 x a day Andres JEladio Nancy, - M.D. 06/13 Lisinopril Hx Tablets 10mg Stevanovi /0000 ch, - Radomir, 06/13 Simvastatin Hx Tablets 20mg Stevanovi /0000 ch, - Radomir, 06/[address] 20mg Gallardo, / Pilo Zayas, 06/13 M.DEladio Sulfamethoxazo Hx Tablets 800-160mg Unknown le/Trimethopri /0000 m DS - 09/11 Vitamin D Hx Capsules 1000Unit Take 1 Tab Unknown (Cholecalcifer /0000 PO Daily ol) - 06/13 Latanoprost Hx Solution 0.005% 5ml 1 drop both . eyes every Arleo, - night M.D. 06/13 Cranberry Hx Tablets 1 tab po Unknown /0000 daily - 06/13 Immunizations Description No Information Available Vital Signs Description No Information Available Results Description No Information Available Procedures Date Code Description Status 09/28/2017 97843 Scanning Computerized Ophthalmic Diagnostic Imag Posterior Completed Seg On 09/28/2017 75929 Visual Field Exam Extended Completed 09/28/2017 04548 Est Patient Intermediate Exam Completed 03/29/2017 71094 Visual Field Exam Extended Completed 03/29/2017 72365 Est Patient Comprehensive Exam Completed 01/31/2017 94737 Visual Field Exam Extended Completed 01/31/2017 58109 Est Patient Intermediate Exam Completed 07/24/2016 86694 Scanning Computerized Ophthalmic Diagnostic Imag Posterior Completed Seg On 07/24/2016 35658 Est Patient Comprehensive Exam Completed 01/24/2016 67330 Est Patient Intermediate Exam Completed 01/24/2016 45329 Visual Field Exam Extended Completed 07/23/2015 64322 Scanning Computerized Ophthalmic Diagnostic Imag Posterior Completed Seg On 07/23/2015 18715 Est Patient Comprehensive Exam Completed 04/14/2015 73534 Est Patient Intermediate Exam Completed 03/31/2015 13389 Est Patient Intermediate Exam Completed 02/26/2015 95552 Visual Field Exam Extended Completed 02/26/2015 27645 Gonioscopy Completed 02/26/2015 36454 Est Patient Intermediate Exam Completed 04/21/2014 88015 Est Patient Comprehensive Exam Completed 04/21/2014 44332 Visual Field Exam Extended Completed 04/21/2014 88169 Scanning Computerized Ophthalmic Diagnostic Imag Posterior Completed Seg On 10/16/2013 83707 Gonioscopy Completed 10/16/2013 65660 Est Patient Intermediate Exam Completed 04/18/2013 35772 Fundus Photography With Interpretation And Report Completed 04/18/2013 42798 Visual Field Exam Extended Completed 04/18/2013 17417 Est Patient Comprehensive Exam Completed 10/15/2012 87175 Est Patient Intermediate Exam Completed 10/14/2012 48888 Visual Field Exam Extended Completed 08/15/2012 70789 Est Patient Intermediate Exam Completed 04/19/2012 96693 Scanning Computerized Ophthalmic Diagnostic Imag Posterior Completed Seg On 04/19/2012 33676 Est Patient Intermediate Exam Completed 10/19/2011 35909 Visual Field Exam Extended Completed 09/07/2011 53567 Scanning Computerized Opthalmic Diagnostic Posterior Seg Completed Retina 09/07/2011 92409 Est Patient Comprehensive Exam Completed 09/05/2010 32835 Visual Field Exam Extended Completed 09/05/2010 65123 Est Patient Comprehensive Exam Completed 09/02/2009 17946 Est Patient Comprehensive Exam Completed 09/02/2009 06647 Visual Field Exam Extended Completed 09/02/2009 50542 Fundus Photography With Interpretation And Report Completed 09/01/2008 48079 Visual Field Exam Extended Completed 09/01/2008 47678 Est Patient Comprehensive Exam Completed 03/03/2008 77306 Est Patient Intermediate Exam Completed 09/02/2007 70063 Est Patient Comprehensive Exam Completed 08/27/2007 41918 Visual Field Exam Extended Completed 02/22/2007 37087 Est Patient Intermediate Exam Completed 11/22/2006 65781 Scanning Laser W/Interp And Report Completed 11/02/2006 96723 Est Patient Intermediate Exam Completed 08/08/2006 64287 Extracapsular Cataract Extraction W/Intraocular Lens Completed 08/01/2006 13673 Ophthalmic Biometry Completed 08/01/2006 89829 Computerized Corneal Topography Completed 07/16/2006 06057 Fundus Photography With Interpretation And Report Completed 07/16/2006 01068 Est Patient Comprehensive Exam Completed 07/02/2006 93827 Visual Field Exam Extended Completed 04/10/2006 51949 Excision Chalazion Single Completed 09/27/2005 30243 Est Patient Intermediate Exam Completed 08/22/2005 67656 Est Patient Intermediate Exam Completed 07/14/2005 83444 Scanning Laser W/Interp And Report Completed 07/14/2005 70948 Scanning Laser W/Interp And Report Completed 07/14/2005 37897 Visual Field Exam Extended Completed 02/09/2005 68317 Rescheduled Appointment Completed 02/08/2005 18109 Extracapsular Cataract Extraction W/Intraocular Lens Completed 01/24/2005 05225 Unlisted Procedure, Ophthalmological Completed 01/24/2005 88050 Ophthalmic Biometry Completed 01/06/2005 73060 Est Patient Intermediate Exam Completed 06/28/2004 94105 Fundus Photography With Interpretation And Report Completed 06/28/2004 77889 Determination Of Refractive State Completed 06/28/2004 16849 Est Patient Comprehensive Exam Completed 02/17/2004 89927 Visual Field Exam Extended Completed 12/15/2003 91866 Cancelled Appointment Completed 12/15/2003 35298 Scanning Laser W/Interp And Report Completed 12/15/2003 30249 Determination Of Refractive State Completed 12/15/2003 56981 Est Patient Comprehensive Exam Completed Encounters Type Date Location Provider Dx Diagnosis Office Visit 08/25/2016 Kaye Hernandez H40.1132 Primary open- angle 11:20a , immanuel Deleon O.D. glaucoma, bilateral, moderate stage Office Visit 11/12/2015 Bailey Hernandez, B30.3 Acute epidemic 9:15a immanuel MARCELINO O.D. hemorrhagic conjunctivitis (enteroviral) Office Visit 04/08/2015 Bailey Hernandez, H10.412 Chronic giant 10:00a immanuel MARCELINO O.D. papillary conjunctivitis, left eye H40.11x2 Primary open-angle glaucoma, moderate stage Office Visit 10/19/2011 2:45p Andres Hernandez 365.11 Primary Open immanuel MARCELINO M.D. Angle Glaucoma 365.72 Moderate Glaucoma Office Visit 11/22/2006 9:45a Andres Johnson 365.11 Primary Open Angle MD Cruz pc Arleo, M.D. Glaucoma Office Visit 08/22/2006 8:15a Andres Johnson 372.11 Conjunctivitis Simple MD Nancy, immanuel Cruz M.D. Chronic Office Visit 06/15/2006 9:45a Andres Johnson 373.2 Saira Cruz MD, immanuel Cruz M.D. Office Visit 12/15/2005 12:15p Andres Johnson 373.2 Saira Cruz MD, immanuel Cruz M.D. Office Visit 12/15/2005 10:00a Andres Arenas.2 Saira Cruz MD, immanuel Cruz M.D. Office Visit 06/14/2005 11:15a Andres Johnson 365.11 Primary Open Angle MD Nancy, immanuel Cruz M.D. Glaucoma Office Visit 05/23/2005 12:00p Andres Johnson 373.2 Saira Cruz MD, immanuel Cruz M.D. Office Visit 01/24/2005 12:00p Andres Johnson V72.83 Examination MD Nancy, immanuel Cruz M.D. Preoperative Other Spec 366.16 Senile Nuclear Sclerosis / Cataract Plan of Treatment 06/14/2018 - Andres Cruz M.D.H40.1132 Primary open-angle glaucoma, bilateral, moderate stageComments:Smoking can increase the risk of developing or worsening any eye related disease, as well as affect your overall health. If you are a smoker, we strongly recommend that you quit.If you are not a smoker , we strongly recommend that you do not start. Your glaucoma is stable at this time.Your eye pressure is within an acceptable range, and your testing does not show any further deterioration at this time. Please continue your treatment.Follow up:6 Month Follow Up DFE/IOP OCT ON Visual Field 30-2 You can expect to have your eyes dilated at yournext visit. If Dr. Cruz orders any additional testing, it may require extra time. We recommend thatyou bring sunglasses, as dilation drops often make you light sensitive until they wear off. We always recommend you bring someone to drive you home if you are uncomfortable driving with your eyes dilated. If you have any questions before your next visit, feel free to call our office at .[email or web address]. Presence of intraocular lensComments:The artificial lens implants in both eyes appear to be stable at this time.
--- OUTSIDE RECORDS SUMMARY | 2018-06-20 12:13 | XMS REPORT | Continuity of Care Document ---
:1935 External Reference #:[id number] Author Name Perry Rodríguezisabelawilberto Care Team Providers Name Role Phone [facility] Primary Care Physician Unavailable Payers Date Identification Numbers Payment Provider Subscriber Effective: 1989 Policy Number: [id number] Medicare Deion Perdomo PayID: [id number] [address] [place] [address] Policy Number: [id number] Medicaid Deion Perdomo Group Name: 1 1 [address] PayID: [id number] [place] [address] Effective: 2017 Policy Number: [id number] [facility] Deion Perdomo Expires: 2018 Group Number: 60% [address] PayID: [id number] [facility] [address] [place] [address] Advance Directives Description No Information Available Problems [...] apnea syndrome Melony Noriega DNP, RN, Active [facility] Onset: 09/29/2016 Hypersomnia Melony Noriega DNP, RN, Active [facility] Onset: 01/20/2018 Walking disability Jailene Mitchell MD Active Onset: 01/20/2018 Morbid obesity Jailene Mitchell MD Active Onset: 01/20/2018 Type 2 diabetes mellitus Jailene Mitchell MD Active Onset: 01/20/2018 Malaise and fatigue Jailene Mitchell MD Active Onset: 01/20/2018 Type 2 diabetes mellitus with Jailene Mitchell MD Active diabetic neuropathy, unspecified Onset: 01/22/2018 Anemia Rachel Medellin, GARNISHMENT SPECIALIST Active Onset: 01/22/2018 Shoulder joint pain Rachel Medellin, GARNISHMENT SPECIALIST Active Onset: 01/22/2018 Spinal stenosis of thoracic region Rachel Medellin, GARNISHMENT SPECIALIST Active Onset: 01/23/2018 Spinal cord disease BLACK Goff Active Onset: 04/24/2018 Localized, primary osteoarthritis Stephen Calixto M.D. Active of the shoulder region Onset: 04/24/2018 Convalescence after surgery Stephen Calixto M.D. Active Family History Date Family Member(s) Observation Comments General Heart Disease General Diabetes General [...] Patient has never smoked Smoking Status Reviewed: 06/18/18 Patient has never smoked Exercise Type/Frequency Exercises [...] Form Strength Qnty SIG Indications Ordering Provider Rolling Walker 04/01 Active 1unit Use as Z48.89 Stephen s directed for [place], ambulation M.D. Cyclobenzaprine 03/22 Active Tablets 10mg 60tab 1 by mouth s twice a day [place], as needed M.DEladio spasm Prolia 10/15 Active Solution 60mg/ml 60mg 60 mg sc M81.0 ofi q6mon [place], [facility] Rollator Walker 06/04 Active use as Krystle /2018 needed Tyler Crisostomo Vitamin A 03/30 Active Capsules [id number] 1 daily RAY Toro Diltiazem HCL ER 01/17 Active Caps ER 180mg 90cap 1 po qd Carson D. 24HR s Tyler Hartley Calcium 09/13 Active Tablets 600-800mg 60tab 1 by mouth M81.0 Zsofia 600/Vitamin D3 /2016 -Unit s twice a day RAY Toro Prolia 09/12 Active Solution 60mg/ml 60mg 60 mg sc M81.0 Zsofi q6mon RAY Toro Ibuprofen 08/16 Active Tablets 800mg 60tab 1 tab by M54.32 Zsofi s mouth three [place], times a day [facility] with food as needed Triamcinolone 02/27 Active Lotion 0.025% 60ml use on R21 Zsofia Acetonide affected [place], area 2x [facility] daily as needed Nitrostat 12/31 Active Tablets 0.4mg 25tab one sl q5min Carson D. Sub s up to 3 Brand, doses prnTyler if no relief call 911 Simvastatin 12/16 Active Tablets 20mg 90tab 1 tablet at 250.00 Stevanovic s bed time , Rad[place], M.D. Baby Aspirin 12/16 Active Chewtabs 81mg 100un 1 tablet po 250.00 its daily , Tyler Mendieta Lisinopril Active Tablets 10mg 90tab 1 po qd s Anam M.D. Cod Liver Oil Active Capsule 1 cap po qd Unknown Plus Vitamin A&D3 Potassium Active Tablet 10Meq One tab 250.00 Unknown Chloride daily Valacyclovir HCL Active Tablets 500mg 60tab take 1 s tablet by mouth twice a day Travatan Z Active Solution 0.004% one drop in each eye at hs Omeprazole Active Capsules 20mg [address] twice daily Docusate Sodium Active 50mg 2 tablet po Unknown daily Iron Active Tablets 325(65Fe) 1 by mouth Unknown /0000 mg every day Oxycodone-Acetam Active Tablets 5-325mg 1 po pm Linda-He inophen / Chloe alan PA Centrum Adults Active Tablets as directed Unknown Cranberry Active 8400mg 1 daily Unknown / Gabapentin Active Capsules 100mg 1 capsule Unknown / three times daily. Hydralazine HCL Active Tablets 10mg 1 tab by Unknown /0000 mouth with food twice daily Polyethylene Active Granules 3350 dissolve one Unknown Glycol 3350 0000 capful (17g) in 8 ounces of water by mouth every 48 hours as needed constipation Ferrous Sulfate Active Tablets 325mg 1 by mouth Unknown /0000 every day Eq Loratadine Active Tablets 10mg Unknown /0000 Senna Laxative Active Tablets 8.6mg 1 tab by Unknown /0000 mouth every night at bedtime Magnesium Active Powder Unknown Hydroxide / Sorbitol Active Solution 70% Unknown / Calcium 1000 + D 09/12 Hx Tablets 1000-800m 90tab 1 by mouth M81.0 g-Unit s every day Ame Toro 09/21 Calcium 600 09/06 Hx Tablets 600mg 180ta 1 tab by M81.0 Zsofia 2016 bs mouth 2x [place], - daily [facility] 09/12 Percocet 04/19 Hx Tablets 5-325mg 80tab 1 by mouth S83.402D Dir s every 6 Jordy, - hours as M.D. 09/06 needed pain /2015 Fiber 08/13 Hx Tablets 625mg 60tab 5 by mouth s daily Tyler Sheffield - 10/21 Duloxetine HCL 04/16 Hx Caps 20mg 60cap 2 together 729.1 Part s by mouth Tyler Sheffield - every day 05/24 Prolia 01/14 Hx Solution 60mg/ml 60mg 60 mg sc M81.0 Norbert q6mon Tyler Kidd - 08/07 M81.0 Caltrate 01/14/2014 Hx Tablets 118-281ti-Cfly 60tabs 1 po bid 733.00 Norbert 600+D [...] use as Dirk - directed Jordy, 04/26/2013 M.DEladio Sulfamethoxa 11/01/2009 Hx Tablets 400-80mg Take two [...] 307.42 Stevanov - 12HR bid ic, 08/11/2009 Tylre Mendieta Zithromax 01/04/2009 Hx Tablets 500mg 3tabs 1 tab po Stevanov Tri-Zane - daily ic, 03/22/2009 Tyler Mendieta Ativan 12/23/2008 Hx Tablets 1mg 2tabs 1 tablet Stevanov - po 1 hour ic, 08/11/2009 prior to Anam procedure M.D. and 1 tablet at procedure Isosorbide [...] Caps DR Part 30mg Cherry, 06/13/2016 RAY Ortiz-GURPREET Sulfamethoxazole/Tri - Hx Tablets 800-160mg 1 by mouth Unknown methoprim DS 02/28/2016 twice a day Metamucil - Hx Unknown 01/12/2017 Vitamin D3 - Hx Capsules 1000Unit 1 daily Unknown 03/30/2017 Medications Administered in Office Medication Date Status Form Strength Qnty SIG Indications Ordering Provider Triamcinolone 06/18/ Administered Injection Zaneb (Kenalog) 2018 MD Serena Depomedrol 40MG 03/27/ Administered Injection Krystle 2018 Tyler Crisostomo Depomedrol 40MG 12/26/ Administered Injection Krystle 2017 Tyler Crisostomo Prolia 12/10/ Administered Injection Nurse Visit Injection, 2017 RH Denosumab, 1MG [place] Depomedrol 40MG 08/16/ Administered Injection Krystle 2017 Tyler Crisostomo Depomedrol 40MG 06/04/ Administered Injection Krystle 2017 Tyler Crisostomo Prolia 04/13/ Administered Injection Nurse Visit Injection, 2017 RH Denosumab, 1MG Prolia 09/12/ Administered Injection Zsofia Injection, 2016 RAY Toro Denosumab, 1MG Depomedrol 40MG 05/03/ Administered Injection Dirk Jordy, 2016 Tyler Depomedrol 40MG 05/03/ Administered Injection Dirk Jordy, 2016 MEladioDEladio Prolia 04/10/ Administered Injection Nurse Visit Injection, 2016 C Denosumab, 1MG Prolia 09/06/ Administered Injection Zsofia Injection, 2015 RAY Toro Denosumab, 1MG Inj, 07/28/ Administered Injection Carson D. Regadenoson, 2015 Tyler Hartley 0.1 MG Technetium TC 07/28/ Administered Injection Carson D. 99M 2015 Tyler Hartley Tetrofosmin, Per Unit Dose Up To 40 Millicuries Prolia 02/15/ Administered Injection Phillip Injection, 2014 Tyler Sheffield Denosumab, 1MG Prolia 08/13/ Administered Injection Phillip Injection, 2014 Tyler Sheffield Denosumab, 1MG Depomedrol 20MG 06/15/ Administered Injection Dirk Jordy, 2014 Tyler Depomedrol 80MG 04/09/ Administered Injection Billy 2014 Tyler Cantrell Prolia 01/28/ Administered Injection Nurse Visit Injection, 2013 RH Denosumab, 1MG Depomedrol 80MG 12/04/ Administered Injection Krystle 2013 Tyler Crisostomo Depomedrol 80MG 11/13/ Administered Injection Billy 2013 Tyler Cantrell Inj, 05/08/ Administered Injection Carson D. Regadenoson, 2013 Tyler Hartley 0.1 MG Technetium TC 05/08/ Administered Injection Carson D. 99M 2013 Tyler Hartley Tetrofosmin, Per Unit Dose Up To 40 Millicuries Depomedrol 80MG 05/06/ Administered Injection Lula 2013 JOSE Ferrari Depomedrol 80MG 11/28/ Administered Injection Krystle 2012 Tyler Crisostomo Depomedrol 80MG 11/28/ Administered Injection Krystle 2012 Tyler Crisostomo Depomedrol 40MG 04/01/ Administered Injection Dirk Jordy, 2012 Tyler Depomedrol 80MG 09/19/ Administered Injection Dirk Jordy, 2011 Tanya. Immunizations CPT Code Status Date Vaccine Lot # [id number] Given 12/23/2008 Zoster (Zostavax) Vital Signs Date Vital Result Comment 06/18/2018 1:19pm Height 60 inches 5'0" Weight 219.00 lb BP Systolic 126 mmHg BP Diastolic 70 mmHg Respiratory Rate 20 /min Pain Level 8 BMI (Body Mass Index) 42.8 kg/m2 05/22/2018 1:13pm Height 60 inches 5'0" Weight 219.00 lb BP Systolic Sitting 130 mmHg BP Diastolic Sitting 80 mmHg Pain Level 1 BMI (Body Mass Index) 42.8 kg/m2 05/17/2018 10:51am Height 60 inches 5'0" Weight 219.00 lb BP Systolic 144 mmHg BP Diastolic 88 mmHg Respiratory Rate 20 /min Pain Level 10 BMI (Body Mass Index) 42.8 kg/m2 05/09/2018 2:27pm Height 60 inches 5'0" Weight 214.00 lb Heart Rate 64 /min Respiratory Rate 15 /min Body Temperature 97.1 F Pain Level 8 BMI (Body Mass Index) 41.8 kg/m2 04/24/2018 1:02pm Height 60 inches 5'0" Weight 214.00 lb wc BP Systolic Sitting 130 mmHg BP Diastolic Sitting 70 mmHg Pain Level 8 L shoulder BMI (Body Mass Index) 41.8 kg/m2 04/01/2018 9:43am Height 60 inches 5'0" Weight 214.00 lb BP Systolic Sitting 140 mmHg BP Diastolic Sitting 98 mmHg Pain Level 7 BMI (Body Mass Index) 41.8 kg/m2 03/27/2018 11:25am Height 60 inches 5'0" Heart Rate 64 /min BP Systolic Sitting 114 mmHg BP Diastolic Sitting 66 mmHg Respiratory Rate 16 /min 02/27/2018 9:32am Height 60 inches 5'0" Weight [...] Test Result H/L Range Note Laboratory test 03/13/2018 [facility] Point of Care 141 mg/dL High 70-100 [address] [place] [address] [phone] Laboratory test 03/13/2018 [facility] Point of Care 139 mg/dL High 70-100 [address] [place] [address] [phone] Laboratory test 03/13/2018 [facility] MRSA Screen SEE RESULT 3, [address] [place] [address] [phone] Laboratory test 03/12/2018 [facility] Point of Care 173 mg/dL High 70-100 [address] [place] [address] [phone] CBC No Diff 03/05/2018 [facility] White Blood 8.3 10^3/uL N 3.5-10.[address] [place] [address] [phone] Red Blood Count 4.00 10^6/uL N 4.00-5.40 [...] fL N 7.4-10.4 Basic Metabolic Panel 03/05/2018 [facility] Sodium 137 mmol/L N 135-[address] [place] [address] [phone] Potassium 3.9 mmol/L N 3.5-5.0 Chloride 99 mmol/L Low 101-111 Co2 Carbon Dioxide 31 mmol/L N 22-32 Anion Gap 7 mmol/L N 2-11 Glucose 90 mg/dL N 70-100 Blood Urea Nitrogen 23 mg/dL N 6-24 Creatinine 1.18 mg/dL High 0.51-0.95 BUN/Creatinine Ratio 19.5 N 8-20 Calcium 10.0 mg/dL N 8.6-10.3 Egfr Non- 44.1 >60 Egfr 53.3 >60 7 Laboratory test 11/22/2017 [facility] Calcium 5.08 mg/dL N 4.65-5.[address] [place] [address] [phone] Pthi 11/22/2017 [facility] Calcium (PTH 9.8 mg/dL N 8.6-10.[address] Intact) [place] [address] [phone] PTH Intact 3.3 pmol/L N 1.3-9.3 Laboratory test 11/22/2017 [facility] Vitamin D 50.8 ng/mL High 20-[address] Total 25(Oh) [place] [address] [phone] Comp Metabolic 2017 [facility] Sodium 135 mmol/L N 133- [address] [place] [address] [phone] Potassium 4.0 mmol/L N 3.5-5.0 Chloride 99 [...] Egfr Non- 35.3 >60 Egfr 45.4 >60 8 Total Protein 24HR 2017 [facility] Urine Collection Time [address] [place] [address] [phone] Urine Total Volume 1600 mL Urine Random Total Protein 19 mg/dL Urine Total Protein/24HR 304 mg/24Hr High 0-165 Creatinine 2017 [facility] Creatinine 1.44 mg/dL High 0.51-0.[address] [place] [address] [phone] Urine Collection Time 24 Urine Total Volume 1600 mL Urine Random Creatinine 70.42 mg/dL Creatinine Clearance 54 mL/min Low 88-128 Laboratory test 03/22/2016 [facility] Vitamin D, 43 pg/mL N 18 -78 9, [address] 1,25 [place] [address] [phone] Pthi 03/22/2016 [facility] Calcium (PTH 9.9 mg/dL N 8.6-10.[address] Intact) [place] [address] [phone] PTH Intact 4.2 pmol/L N 1.3-9.3 Comp Metabolic Panel 03/22/2016 [facility] Sodium 137 mmol/L N 133-[address] [place] [address] [phone] Potassium 3.8 mmol/L N 3.5-5.0 Chloride 98 [...] 31.2 N >60 Egfr 40.1 N >60 11 Laboratory test 03/22/2016 [facility] Vitamin D 40.0 ng/mL N 30-50 [address] Total 25(Oh) [place] [address] [phone] Laboratory test 12/15/2015 [facility] Vitamin D 38.1 ng/mL N 30-50 [address] Total 25(Oh) [place], [place] [phone] Pthi 12/15/2015 [facility] Calcium (PTH 9.8 mg/dL N 8.6-10.[address] Intact) [place] [address] [phone] PTH Intact 4.3 pmol/L N 1.3-9.3 Comp Metabolic Panel 12/15/2015 [facility] Sodium 138 mmol/L N 133-[address] [place] [address] [phone] Potassium 3.9 mmol/L N 3.5-5.0 Chloride 101 [...] 31.4 N >60 Egfr 40.4 N >60 14 PTH, Intact 09/03/2015 [facility] Calcium (PTH 9.8 mg/dL N 8.6 -10.[address] Intact) [place] [address] [phone] PTH Intact 8.3 pmol/L N 1.3-9.3 Laboratory test 09/03/2015 [facility] Vitamin D 29.0 ng/mL Low 30-[address] Total 25(Oh) [place] [address] [phone] Vitamin D, 1,25 Dihydroxy 53 pg/mL N 18-78 15 Phosphorus 3.5 mg/dL N 2.5-5.0 Calcium Ionized 4.77 mg/dL N 4.65-5.28 CMP Panel 09/03/2015 [facility] Sodium 136 mmol/L N 133-[address] [place] [address] [phone] Potassium 3.6 mmol/L N 3.5-5.0 Chloride 101 [...] 39.3 N >60 Egfr 50.5 N >60 16 Hemoglobin/Hematacrit 01/18/2015 [facility] Hemoglobin 8.0 Low 12.0-16.[address] g/[place] [address] [phone] Hematocrit 25 % Low 35-47 CBC Auto Diff 05/06/2014 [facility] White Blood 7.2 10^3/uL N 4.8-10.[address] [place] [address] [phone] Red Blood Count 4.22 10^6/uL N 4.0-5.4 [...] % 0 N Comp Metabolic Panel 05/06/2014 [facility] Sodium 139 mmol/L N 133-145 [address] [place] [address] [phone] Potassium 4.1 mmol/L N 3.5-5.0 Chloride 102 [...] 36.9 N >60 Egfr 47.4 N >60 17 Laboratory test 05/06/2014 [facility] C Reactive 4.35 mg/L N < 5.00 18 finding [address] [facility] [place] [address] [phone] Erythrocyte Sed Rate 45 mm/Hr High 0-40 Urine Culture And 03/09/2014 [facility] Urine Culture (SEE NOTE ) 19 Sensitivities [address] [place] [address] [phone] Urinalysis Profile 03/09/2014 [facility] Urine Color Yellow N [address] [place] [address] [phone] Urine Appearance Cloudy N Urine Specific [place] 1.013 N 1.010-1.030 Urine pH 8.0 N [...] Absent Urine Amorphous Crystals Present Abnormal Absent Pthi 12/29/2013 [facility] PTH Intact 14.6 pmol/L High 1.3- 9.[address] [place] [address] [phone] Calcium (PTH Intact) 9.2 mg/dL N 8.6-10.3 Protein 12/29/2013 [facility] Total 7.8 g/dL N 6.3 - Electrophoresis [address] [facility] Protein(Pep) 7.9 [place] [address] [phone] Albumin 3.6 g/dL N 3.4-4.7 Alpha-1 Globulin 0.3 g/dL N 0.1-0.3 Alpha-2 Globulin 1.1 g/dL Abnormal 0.6-1.0 Beta Globulin 1.1 g/dL N 0.7-1.2 Gamma Globulin 1.8 g/dL Abnormal 0.6-1.6 Albumin/Globulin Ratio 0.84 N Impression See Comment N 20 Vitamin D, 25 12/29/2013 [facility] 25-Hydroxy Vitamin <4.0 ng/ mL N [address] D2 [place] [address] [phone] 25-Hydroxy Vitamin D3 29 ng/mL N 25-Hydroxy Vitamin D Total 29 ng/mL N 21 RBC Leukoreduced 09/22/2010 [facility] RBC Leukoreduced [id number] [address] O <SEE NOTE> [place] [address] [phone] Patient Blood Type O POSITIVE Antibody Screen NEGATIVE Laboratory test 09/22/2010 [facility] Release Date 09/25/10 23 [place] [address] [phone] Hemoglobin/Hemata 09/21/2010 [facility] Hemoglobin 10.0 g/dL Low 12.0-[address] 6[address]0 [place] [address] [phone] Hematocrit 30 % Low 35-47 Basic Metabolic Panel 09/21/2010 [facility] Sodium 138 mmol/L 135-[address] [place] [address] [phone] Potassium 3.8 mmol/L 3.5-5.0 Chloride 98 mmol/L Low 101-111 Co2 (Carbon Dioxide) 34.0 mmol/L High 22-32 Anion Gap 6.0 mmol/L 2-11 24 Glucose 107 mg/dL High 70-100 BUN 17 mg/dL 6-24 Creatinine 1.00 mg/dL 0.50-1.40 One Over Creatinine 1.00 BUN/Creatinine Ratio 17.0 8-20 Calcium 8.0 mg/dL Low 8.1-9.9 eGFR Non- 54.3 > 60 eGFR 69.9 > 60 25 Urinalysis 09/12/2010 [facility] Ua Color YELLOW Yellow 26 W/Microscopic [address] [place] [address] [phone] Appearance-Urine CLOUDY Clear Specific [place]-Ur 1.024 1.010-1.030 Esterase-Urine 3+ Abnormal Negative Nitrite NEGATIVE Negative Bqnxdoznoggy-Nw-RRL NEGATIVE Negative Protein-Urine 1+ Abnormal Negative PH-Urine 6.0 5-9 Blood-Urine 3+ Abnormal Negative Ketones-Urine NEGATIVE Negative Bilirubin-Ur NEGATIVE Negative Glucose-Urine NEGATIVE Negative WBC-Urine TNTC Abnormal 0-5 RBC-Urine 2-5 0-2 Epith Cells-Ur FEW None Bacteria-Urine 4+ None Protime 09/12/2010 [facility] Inr 0.94 0.82-1.17 27 [address] [place] [address] [phone] Protime 11.1 SEC 10.2-14.8 28 Laboratory test 09/12/2010 [facility] PTT (Aptt) 29.6 25.15- 38.53 finding [address] [place] [address] [phone] Type And Screen 09/12/2010 [facility] Patient O POSITIVE (Pre-Adm) [address] [facility] [place] [address] [phone] Antibody Screen NEGATIVE Specimen Discard Date 09/26/10 29 RBC Leukoreduced [id number] O <SEE NOTE> 30 RBC Leukoreduced [id number] O <SEE NOTE> 31 Basic Metabolic Panel 09/12/2010 [facility] Sodium 138 mmol/L 135-145 [address] [place] [address] [phone] Potassium 3.6 mmol/L 3.5-5.0 Chloride 101 mmol/L 101-111 Co2 (Carbon Dioxide) 29.0 mmol/L 22-32 Anion Gap 8.0 mmol/L 2-11 32 Glucose 98 mg/dL 70-100 BUN 27 mg/dL High 6-24 Creatinine 0.87 mg/dL 0.50-1.40 One Over Creatinine 1.10 BUN/Creatinine Ratio 31.0 High 8-20 Calcium 9.5 mg/dL 8.1-9.9 eGFR Non- 63.8 > 60 eGFR 82.1 > 60 33 Laboratory test 09/12/2010 [facility] C Reactive 1.7 mg/dL High Less Than finding [address] Protein 0.5 [place] [address] [phone] CBC Auto Diff 09/12/2010 [facility] White Blood 10.8 CUMM 4.8 -10.[address] [place] [address] [phone] Red Cell Count 3.92 CUMM Low 4.2-5.4 Hemoglobin 11.6 g/dL Low 12.0-16.0 Hematocrit 36 % 35-47 Mean Corpuscular Volume 91 um3 79-97 Mean Corpuscular Hemoglob 29 pg 27-31 Mean Corpuscular HGB Cone 32 g/dL 32-36 Redcell Distribution WDTH 15 % 10.5-15 Platelet Count 294 CUMM 150-450 Mean Platelet Volume 7.8 um3 7.4-10.4 34 Manual Differential 09/12/2010 [facility] Polysegmented 76 % 38-[address] [place] [address] [phone] Lymphocyte 20 % Low 25-47 Monocyte 3 % 0-13 Eosinophil 1 % 0-6 Absolute Neutrophil Count 8.2 Anisocytosis SLIGHT Stomatocytes 1+ Laboratory test 09/12/2010 [facility] Erythrocyte 67 MM/HR High 0-[address] [place] [address] [phone] Urine Culture & 09/12/2010 [facility] Urine Culture ESCHERICHIA [address] [place] [address] [phone] Sensitivities 09/12/2010 [facility] Ampicillin >=32 R For Urine [address] [place] [address] [phone] Amikacin <=2 S Ciprofloxacin >=4 R Ceftriaxone <=1 S Cefazolin <=4 S Nitrofurantoin <=16 S Gentamicin <=1 S Imipenem <=1 S Levofloxacin 4 I Trimeth-Sulfa >=320 R Ceftazidime <=1 S Tigecycline <=0.5 S Piperacillin/Tazobactam KB 30 S Laboratory test 09/12/2010 [facility] Release Date 09/23/10 36 finding [address] [place] [address] [phone] Lipid Profile 10/22/2009 [facility] Triglyceride 160 mg/dL 40 -200 (Trig/Chol/HDL) [address] [place] [address] [phone] Cholesterol 167 mg/dL Less Than 200 37 High Density Lipoprotein 57 mg/dL 40-60 38 Cholesterol/HDL Ratio 2.93 AVERAGE 1-4.44 Low Density Lipoprotein 78 mg/dL Less Than 100 39 Laboratory test 10/22/2009 [facility] TSH 2.82 MIU/ML 0.34- 5.60 finding [address] [place] [address] [phone] Comp Metabolic 10/22/2009 [facility] Sodium 138 mmol/L 135- 145 Panel [address] [place] [address] [phone] Potassium 4.9 mmol/L 3.5-5.0 Chloride 104 mmol/L 101-111 Co2 (Carbon Dioxide) 27.0 mmol/L 22-32 Anion Gap 7.0 mmol/L 2-11 40 Glucose 84 mg/dL 70-100 41 BUN 38 mg/dL High 6-24 Creatinine 1.40 mg/dL 0.50-1.40 One Over Creatinine 0.70 BUN/Creatinine Ratio 27.1 High 8-20 Calcium 9.5 mg/dL 8.1-9.9 42 Total Protein 8.1 GM/DL 6.2-8.1 Albumin 4.4 GM/DL 3.2-5.2 Globulin 3.7 GM/DL 2-4 Albumin/Globulin Ratio 1.2 1-3 Bilirubin Total 0.7 mg/dL 0.4-1.5 43 Alkaline Phosphatase 93 U/L 30-110 Alt (SGPT) 10 U/L Low 14-54 Ast (Sgot) 15 U/L 12-42 eGFR Non- 39.3 > 60 eGFR 47.5 > 60 44 CBC With Manual 10/22/2009 [facility] White Blood 8.3 CUMM 4.8-10.8 Diff [address] [place] [address] [phone] Red Cell Count 4.52 CUMM 4.2-5.4 Hemoglobin [...] 5.1 RBC Morphology NORMAL Urinalysis W/Microscopic 07/09/2009 [facility] Ua Color YELLOW Yellow [address] [place] [address] [phone] Appearance-Urine CLEAR Clear Specific [place]-Ur 1.017 1.010-1.030 Esterase-Urine 1+ Abnormal Negative Nitrite NEGATIVE Negative Smoznfztfppc-Hx-QVY NEGATIVE Negative Protein-Urine NEGATIVE Negative PH-Urine 6.0 5-9 Blood-Urine 2+ Abnormal Negative Ketones-Urine NEGATIVE Negative Bilirubin-Ur NEGATIVE Negative Glucose-Urine NEGATIVE Negative WBC-Urine 0-2 0-5 RBC-Urine 0-2 0-2 Epith Cells-Ur FEW None Ua Comments (SEE NOTE) 45 Urine Culture & 07/09/2009 [facility] Urine Culture NG 46 S[address] [facility] [place] [address] [phone] Laboratory test 07/09/2009 [employer] [facility] Hemoglobin A1c 5.8 5-7 finding Urinalysis 05/22/2009 [facility] Ua Color RED Yellow W/Microscopic [address] [place] [address] [phone] Appearance-Urine TURBID Clear Specific [place]-Ur 1.007 Low 1.010-1.030 Esterase-Urine 3+ Abnormal Negative Nitrite POSITIVE Abnormal Negative Kdnshnyzohme-Pd-BNF NEGATIVE Negative Protein-Urine 3+ Abnormal Negative PH-Urine 6.0 5-9 Blood-Urine 3+ Abnormal Negative Ketones-Urine 1+ Abnormal Negative Bilirubin-Ur SEE ICTOTEST Abnormal Negative Glucose-Urine NEGATIVE Negative WBC-Urine TNTC Abnormal 0-5 RBC-Urine 3-5 0-2 Mucus Urine SMALL None Epith Cells-Ur FEW None Bacteria-Urine 3+ None Laboratory test 05/22/2009 [facility] Ictotest-Urine NEGATIVE [address] [place] [address] [phone] Urine Culture & 05/22/2009 [facility] Urine Culture SN1 [address] [place] [address] [phone] MRSA/Vre Screen 05/02/2009 [facility] MRSA/Vre Culture [facility] [address] [place] [address] [phone] CBC With Manual 05/01/2009 [facility] White Blood Count 9.0 CUMM 4.8-[address] 0.8 [place] [address] [phone] Red Cell Count 4.47 CUMM 4.2-5.4 Hemoglobin [...] 5.9 Anisocytosis SLIGHT CMP Panel Stat 05/01/2009 [facility] Sodium 138 mmol/L 135- [address] [place] [address] [phone] Potassium 3.9 mmol/L 3.5-5.0 Chloride 101 mmol/L 101-111 Co2 (Carbon Dioxide) 29.0 mmol/L 22-32 Anion Gap 8.0 mmol/L 2-11 50 Glucose 102 mg/dL High 70-100 51 BUN 21 mg/dL 6-24 Creatinine 1.20 mg/dL 0.50-1.40 One Over Creatinine 0.80 BUN/Creatinine Ratio 17.5 8-20 Calcium 9.4 mg/dL 8.1-9.9 52 Total Protein 7.6 GM/DL 6.2-8.1 Albumin 3.8 GM/DL 3.2-5.2 Globulin 3.8 GM/DL 2-4 Albumin/Globulin Ratio 1.0 1-3 Bilirubin Total 0.6 mg/dL 0.4-1.5 53 Alkaline Phosphatase 86 U/L 30-110 Alt (SGPT) 11 U/L Low 14-54 Ast (Sgot) 21 U/L 12-42 eGFR Non- 47.1 > 60 eGFR 57.0 > 60 54 Laboratory test 05/01/2009 [facility] Troponin-I (TnI) 0.04 NG/ ML 55 finding [address] [place] [address] [phone] Laboratory test 04/29/2009 [facility] D Dimer < 200 Less finding [address] Quantitative Than 230 [place] [address] [phone] BNP Evaluatr 37.0 pg/mL 0-100 PTT (Aptt) Stat 04/29/2009 [facility] PTT (Aptt) 32.5 25.15- 38.53 56 [address] [place] [address] [phone] Protime Stat 04/29/2009 [facility] Inr 0.97 0.97-1.03 57 [address] [place] [address] [phone] Protime 11.4 SEC Low 11.5-12.2 58 Laboratory test 04/29/2009 [facility] Lipase 25 U/L 22-51 finding [address] [place] [address] [phone] CBC With 04/29/2009 [facility] White Blood 8.2 CUMM 4.8-10.8 Electronic Diff [address] [facility] [place] [address] [phone] Red Cell Count 4.76 CUMM 4.2-5.4 Hemoglobin [...] Eosinophils 0.2 0-0.6 Abs Basophils 0 0-0.2 59 Comp Metabolic Panel 04/29/2009 [facility] Sodium 137 mmol/L 135-145 [address] [place] [address] [phone] Potassium 3.2 mmol/L Low 3.5-5.0 Chloride 98 mmol/L Low 101-111 Co2 (Carbon Dioxide) 31.0 mmol/L 22-32 Anion Gap 8.0 mmol/L 2-11 60 Glucose 91 mg/dL 70-100 61 BUN 20 mg/dL 6-24 Creatinine 1.13 mg/dL 0.50-1.40 One Over Creatinine 0.80 BUN/Creatinine Ratio 17.7 8-20 Calcium 9.5 mg/dL 8.1-9.9 62 Total Protein 6.1 GM/DL Low 6.2-8.1 Albumin 4.1 GM/DL 3.2-5.2 Globulin 2.0 GM/DL 2-4 Albumin/Globulin Ratio 2.1 1-3 Bilirubin Total 0.9 mg/dL 0.4-1.5 63 Alkaline Phosphatase 82 U/L 30-110 Alt (SGPT) 13 U/L Low 14-54 Ast (Sgot) 22 U/L 12-42 eGFR Non- 50.4 > 60 eGFR 61.0 > 60 64 Amylase Stat 04/29/2009 [facility] Amylase 52 U/L 30-125 [address] [place] [address] [phone] Magnesium Stat 04/29/2009 [facility] Magnesium 2.1 mg/dL 1.7- 2.6 [address] [place] [address] [phone] Laboratory test 04/29/2009 [facility] Troponin-I 0.02 [address] (TnI) NG/ML [place] [id number] [phone] Surgical 01/22/2009 [facility] Surgical --------- [address] [place] [address] <SEE [phone] NOTE> CBC With 01/04/2009 [facility] White Blood 9.2 CUMM 4.8-10.[address] [place] [address] [phone] Red Cell Count 4.44 CUMM 4.2-5.4 Hemoglobin [...] Basophils 0 0-0.2 CMP Panel Stat 01/04/2009 [facility] Sodium 136 mmol/L 135- [address] [place] [address] [phone] Potassium 3.7 mmol/L 3.5-5.0 Chloride 97 mmol/L Low 101-111 Co2 (Carbon Dioxide) 29.0 mmol/L 22-32 Anion Gap 10.0 mmol/L 2-11 67 Glucose 96 mg/dL 70-100 68 BUN 30 mg/dL High 6-24 Creatinine 1.40 mg/dL 0.50-1.40 One Over Creatinine 0.70 BUN/Creatinine Ratio 21.4 High 8-20 Calcium 8.9 mg/dL 8.1-9.9 69 Total Protein 7.4 GM/DL 6.2-8.1 Albumin 3.7 GM/DL 3.2-5.2 Globulin 3.7 GM/DL 2-4 Albumin/Globulin Ratio 1.0 1-3 Bilirubin Total 0.5 mg/dL 0.4-1.5 70 Alkaline Phosphatase 87 U/L 30-110 Alt (SGPT) 12 U/L Low 14-54 Ast (Sgot) 18 U/L 12-42 eGFR Non- 39.4 > 60 eGFR 47.7 > 60 71 Magnesium Stat 01/04/2009 [facility] Magnesium 2.3 mg/dL 1.7- 2.[address] [place] [address] [phone] Laboratory test 01/04/2009 [facility] Troponin-I 0.02 NG/ML [address] (TnI) [place] [address] [phone] Protime Stat 01/04/2009 [facility] Inr 0.99 0.86-1.[address] [place] [address] [phone] Protime 12.1 SEC 10.7-13.6 74 PTT (Aptt) 01/04/2009 [facility] PTT (Aptt) 28.2 25.15-38.53 [address] [place] [address] [phone] CBC With 01/01/2009 [facility] White Blood 15.4 CUMM High 4.8- 10.8 Manual Diff [address] [place] [address] [phone] Red Cell Count 4.71 CUMM 4.2-5.4 Hemoglobin [...] RBC Morphology NORMAL Comp Metabolic Panel 01/01/2009 [facility] Sodium 139 mmol/L 135-[address] [place] [address] [phone] Potassium 4.0 mmol/L 3.5-5.0 Chloride 102 mmol/L [...] > 60 eGFR 57.0 > 60 80 Lipid Profile 01/01/2009 [facility] Triglyceride 64 mg/dL 40- 200 (Trig/Chol/HDL) [address] [place] [address] [phone] Cholesterol 174 mg/dL Less Than 200 81 High Density Lipoprotein 70 mg/dL High 40-60 82 Cholesterol/HDL Ratio 2.49 AVERAGE 1-4.44 Low Density Lipoprotein 91 mg/dL Less Than 100 83 Urine Microalbumin 01/01/2009 [facility] Microalbumin 40.0 mg/L Random [address] (MG/L) [place] [address] [phone] Urine Creatinine 138.18 mg/dL Fortunato Alb/Creatinine Ratio 28.9 UG/MG Less Than 30 84 Laboratory test 01/01/2009 [facility] Hemoglobin A1c 6.4 % High Less Than [address] 6.0 [place] [address] [phone] Channel Cementer Outsole Machine: [id number] 2 Channel Cementer Outsole Machine: [id number] Comment: pt from usp Verbal to [id number] by [id number] at 0204 on . Results read 4 SEE RESULT BELOW Name: PERDOMODEION : [address]: Stephen Calixto MD Acct: [id number] Unit: [id number] AGE: 82 Location: [place] [address] Re03/12/18 SEX: F Status: REG SDC SPEC: [id number] HELLEN: 03/13/[address] [facility] [address]: Stephen Calixto MD REQ: [id number] RECD: 03/13/18 STATUS: WILL GREWAL DR: Lynn Galindo _ SOURCE: NASAL SPDESC: ORDERED: MRSA PCR-Nasal COMMENTS: Comment: pt from usp Verbal to [id number] by [id number] at 0204 on 03/13/18. Results read back accurately. Procedure Result Reported Site MRSA PCR (Nasal) Final 03/13/18- 0204 ML Organism 1 MRSA NOT DETECTED * ML - Main Lab . END OF REPORT DEPARTMENT OF PATHOLOGY, [address] [place] [address] Chase Moore M.D. Director [facility] # [id number] 5 Channel Cementer Outsole Machine: [id number] 6 03/12 7 Because ethnic data is not always [...] 5 Kidney failure <15 (or dialysis) 8 Because ethnic data is not always [...] 5 Kidney failure <15 (or dialysis) 9 normal vit D level. May have Prolia injection. 10 ADDITIONAL INFORMATION This test was developed and its performance characteristics determined by [facility] in a manner consistent with CLIA requirements. This test has not been cleared or approved by the U.S. Food and Drug Administration. Test Performed by: [place] [address] Foaming Machine Operator: Yayo Harding II, M.D., Ph.D. 11 Because [...] 5 Kidney failure <15 (or dialysis) 12 PRN VALID 12/08/15-06/06/16 CC: DR. PALAFOX, DR. HARTLEY, DR. SILVA 13 standing order 14 Because ethnic data is not always readily [...] 15-29 5 Kidney failure <15 (or dialysis) 15 Test Performed by: [place] [address] Foaming Machine Operator: Yayo Harding II, M.D., Ph.D. 16 Because ethnic data is not always readily [...] 15-29 5 Kidney failure <15 (or dialysis) 17 Because ethnic data is not always [...] 5 Kidney failure <15 (or dialysis) 18 Acute inflammation: >10.00 19 RUN DATE: 03/11/14 [facility] LAB LIVE PAGE 1 RUN TIME: 1533 [address] [place], [place] [address] Specimen Inquiry Name: DEION PERDOMO : [address]: Anam Barroso MD Acct: [id number] Unit: [id number] AGE: 78 Location: LAB Re03/09/14 SEX: F Status: REG REF SPEC: [id number] HELLEN: 03/09/14-[address] [facility] [address]: Anam Barroso MD PC REQ: [id number] RECD: 03/09/14 STATUS: WILL GREWAL DR: Norbert Kidd MD _ SOURCE: URINE SPDESC: ORDERED: Urine Culture QUERIES: Medent Number [id number] Procedure Result Verified Site Urine Culture Final 03/11/14- 1108 ML Organism 1 NORMAL RONAL Ovid Count >100,000 (Many) CFU/ML END OF REPORT * ML=Testing performed at Main Lab DEPARTMENT OF PATHOLOGY, [address] [place] [address] Chase Moore M.D. Director [facility] # [id number] RESULT: Polyclonal hypergammaglobulinemia Test Performed by: [place] [id number] Foaming Machine Operator: Saran Lomax M.D. 21 REFERENCE VALUE 25-HYDROXY D TOTAL (D2+D3) Optimum levels in the healthy population are 20-50, patients with bone disease may benefit from higher levels within this range. Test Performed by: [place] [id number] Foaming Machine Operator: Saran Lomax M.D. 22 [id number] OP PC TRANSFUSED 09/22/10 1356 23 ANY BLOOD NOT GIVEN WILL BE RELEASED AT 0700 ON THE ABOVE DATE UNLESS DOCTOR NOTIFIES LAB OTHERWISE. 24 Anion gap measurement may be of [...] 5 Kidney failure <15 (or dialysis) 26 AA 09/20/10 27 Recommended INR for Patients on Oral Anticoagulants Prophylaxis 2.0 - 3.0 Treatment of thrombosis 2.0 - 3.0 Prevention of embolism 2.0 - 3.0 Prevention of embolism from prosthetic heart valves 2.5 - 3.5 28 DIAGNOSIS,TREATMENT,AND THERAPY MUST BE BASED ON THE INR VALUE ALONE. 29 PREADMISSION TESTING SAMPLES FOR BLOOD BANK WILL [...] WITHIN 3 DAYS OF THE SURGERY DATE. 30 [id number] OP PC TRANSFUSED 09/20/10 1136 31 [id number] OP PC TRANSFUSED 09/20/10 1136 32 Anion gap measurement may be of limited value in the presence of any alkalosis, especially in a combined acid base disorder. . 33 Because ethnic data is not always [...] 5 Kidney failure <15 (or dialysis) 34 Lymphopenia % 35 >100^>100,000 ORGANISMS/ML (MANY)^CCU 36 ANY BLOOD NOT GIVEN WILL BE RELEASED AT 0700 ON THE ABOVE DATE UNLESS DOCTOR NOTIFIES LAB OTHERWISE. 37 CHOLESTEROL INTERPRETATION: Desirable: Less than 200 MG/DL Borderline-High Risk: 200-239 MG/DL High-Risk: 240 MG/DL and over 38 HDL INTERPRETATION: Undesirable: High Risk: Less than 40 MG/DL Desirable: Low Risk: Greater than 60 MG/DL 39 LDL INTERPRETATION: Low Risk Optimal Level: LDL Less than 100 MG/DL Near or Above Optimal: LDL 100-129 MG/DL Borderline High Risk: LDL 130-159 MG/DL High Risk: LDL 160-189 MG/DL Very High Risk: LDL Greater than 189 MG/DL 40 Anion gap measurement may be of limited value in the presence of any alkalosis, especially in a combined acid base disorder. . 41 Note change in reference range as of 11/14/07. The change was based on recommendations from the [place] [employer]. 42 Please note change in reference range effective 07 . 43 A metabolite of Naproxen, O-desmethylnaproxen, has been shown to interfere with the Jendrassik-Prema method for measuring total bilirubin. Samples from patients who have taken Naproxen have shown spurious elevation in total bilirubin levels. 44 Because ethnic data is not always readily [...] 15-29 5 Kidney failure <15 (or dialysis) 45 BUDDING YEAST PRESENT 46 FINAL: NO GROWTH DAY 2 (<1,000 CFU/mL) 47 ICTOTEST IS A QUALITATIVE CONFIRMATORY TEST FOR BILIRUBIN. 48 SCANT NORMAL URETHRAL OR PERINEAL RONAL 49 NO MRSA ISOLATED 50 Anion gap measurement may be of limited value in the presence of any alkalosis, especially in a combined acid base disorder. . 51 Note change in reference range as of 11/14/07. The change was based on recommendations from the [place] [employer]. 52 Please note change in reference range effective 07 . 53 A metabolite of Naproxen, O-desmethylnaproxen, has been shown to interfere with the Jendrassik-[place] method for measuring total bilirubin. Samples from [...] 0.06 ng/mL NOT SUPPORTIVE OF DIAGNOSIS OF OR 0.06 - 0.50 ng/ml INDETERMINATE: SUGGEST SERIAL STUDIES IF CLINICALLY INDICATED. Greater than 0.5 ng/mL CONSISTENT WITH DIAGNOSIS OF OR . 56 PLEASE NOTE NEW REFERENCE RANGE EFFECTIVE 08. 57 Recommended INR for Patients on Oral Anticoagulants Prophylaxis 2.0 - 3.0 Treatment of thrombosis 2.0 - 3.0 Prevention of embolism 2.0 - 3.0 Prevention of embolism from prosthetic heart valves 2.5 - 3.5 58 DIAGNOSIS,TREATMENT,AND THERAPY MUST BE BASED ON THE INR VALUE ALONE. 59 NRBC 60 Anion gap measurement may be of limited value in the presence of any alkalosis, especially in a combined acid base disorder. . 61 Note change in reference range as of 11/14/07. The change was based on recommendations from the [place] [employer]. 62 Please note change in reference range effective 07 . 63 A metabolite of Naproxen, O-desmethylnaproxen, has been shown to interfere with the Jendrassik-[place] method for measuring total bilirubin. Samples from [...] 0.06 ng/mL NOT SUPPORTIVE OF DIAGNOSIS OF OR 0.06 - 0.50 ng/ml INDETERMINATE: SUGGEST SERIAL STUDIES IF CLINICALLY INDICATED. Greater than 0.5 ng/mL CONSISTENT WITH DIAGNOSIS OF OR . 66 ---- RUN DATE: 01/25/09 [facility] NMI LIVE PAGE 1 RUN TIME: 1346 Specimen Inquiry RUN USER: INTERFACE -- Name: PERDOMO DEION KIM Accsabi#: [id number] Status: REG REF Re01/22/09 Age/Sex: 73/F Unit#: [id number] Location: [facility] : 37 -- Specimen: [id number] SOUT Spec Date: 01/22/[address]: Pilo ferreira MD Spec Type: SURGICAL P Received: 01/22/09-0903 Copies to: Anam garcia MD SPECIMEN BIOPSY [...] Signed Electronically by: CHASE MOORE MD 01/25/09 0343 -- -- DEPARTMENT OF PATHOLOGY, [address] [place] [address] [facility] Permit #[id number] Chase Moore M.D. Director Raj Acevedo M.D. Landfill Attendant Dir ruiz -- 67 Anion gap measurement may be of limited value in the presence of any alkalosis, especially in a combined acid base disorder. . 68 Note change in reference range as of 11/14/07. The change was based on recommendations from the [place] [employer]. 69 Please note change in reference range effective 07 . 70 A metabolite of Naproxen, O-desmethylnaproxen, has been shown to interfere with the Jendrassik-[place] method for measuring total bilirubin. Samples from patients who have taken Naproxen have shown spurious elevation in total bilirubin levels. 71 Because ethnic data is not always readily [...] 15-29 5 Kidney failure <15 (or dialysis) 72 New Reference Range and Interpretation effective 12/27/2001 TnI (ng/ml) INTERPRETATION Less Than 0.06 ng/mL NOT SUPPORTIVE OF DIAGNOSIS OF OR 0.06 - 0.50 ng/ml INDETERMINATE: SUGGEST SERIAL STUDIES IF CLINICALLY INDICATED. Greater than 0.5 ng/mL CONSISTENT WITH DIAGNOSIS OF OR . 73 Recommended INR for Patients on Oral Anticoagulants Prophylaxis 2.0 - 3.0 Treatment of thrombosis 2.0 - 3.0 Prevention of embolism 2.0 - 3.0 Prevention of embolism from prosthetic heart valves 2.5 - 3.5 74 ATTENTION EFFECTIVE 08/05/08, THE IMPLEMENTATION OF NEW COAGULATION ANLAYZERS HAS CAUSED A SIGNIFICANT DIFFERENCE FOR PROTIME RESULTS IN SECONDS. THEREFORE, DIAGNOSIS,TREATMENT,AND THERAPY MUST BE BASED ON THE INR VALUE ONLY. 75 PLEASE NOTE NEW REFERENCE RANGE EFFECTIVE 08. 76 Anion gap measurement may be of limited value in the presence of any alkalosis, especially in a combined acid base disorder. . 77 Note change in reference range as of 11/14/07. The change was based on recommendations from the [place] [employer]. 78 Please note change in reference range effective 07 . 79 A metabolite of Naproxen, O-desmethylnaproxen, has been shown to interfere with the Jendrassik-[place] method for measuring total bilirubin. Samples from [...] 15-29 5 Kidney failure <15 (or dialysis) 81 CHOLESTEROL INTERPRETATION: Desirable: Less than 200 MG/DL Borderline-High Risk: 200-239 MG/DL High-Risk: 240 MG/DL and over 82 HDL INTERPRETATION: Undesirable: High Risk: Less than 40 MG/DL Desirable: Low Risk: Greater than 60 MG/DL 83 LDL INTERPRETATION: Low Risk Optimal Level: LDL Less than 100 MG/DL Near or Above Optimal: LDL 100-129 MG/DL Borderline High Risk: LDL 130-159 MG/DL High Risk: LDL 160-189 MG/DL Very High Risk: LDL Greater than 189 MG/DL 84 MICROALBUMINURIA IN A RANDOM SAMPLE IS DEFINED : MICROALBUMIN/CREATININE RATIO OF 30-299 ug/mg. . 85 THERAPEUTIC TARGET FOR THE TREATMENT OF DIABETES MELLITUS PATIENTS IS <7% HBA1C, AND IN SELECTIVE PATIENTS <6.0%. PLEASE REFER TO [place] [employer] DIABETIC CARE GUIDELINES FOR FURTHER INFORMATION. Procedures Date Code Description Status 06/18/201822007 Inj/Aspir Major JT Or Bursa W/ US Completed 03/27/201859316 Inject/Drain Joint/Bursa Major W/O US Completed 03/12/2018 47396 Valdez/Facet/Foraminotomy;Vertical Segement; Thoracic Completed 03/12/2018 84142 Valdez/Facet/Foraminotomy;Vertical Segement; Thoracic Completed 03/05/2018 99422 EKG, Interpretation Only Completed 01/16/2018 69493 EKG Tracing & Interpretation Completed 12/26/2017 67415 Inject/Drain Joint/Bursa Major W/O US Completed 12/10/2017 37365 Admin Of Inj Completed 10/22/2017 089196754 Bone Mineral Density Test Completed 08/16/2017 67326 Inject/Drain Joint/Bursa Major W/O US Completed 06/04/2017 20495 Inject/Drain Joint/Bursa Major W/O US Completed 06/04/2017 21756 Injection Single Tendon Origin/Insertion Completed 04/13/2017 69912 Admin Of Inj Completed 01/17/2017 22155 EKG Tracing & Interpretation Completed 10/25/2016 38975 Polysomnography Sleep Staging 4+ Parameters W/Cpap Completed 09/12/2016 67345 Admin Of Inj Completed 09/06/2016 92074 Polysomnography Sleep Staging 4+ Parameters Completed 06/14/2016 02864 EKG Tracing & Interpretation Completed 05/03/2016 78235 Inject/Drain Joint/Bursa Major W/O US Completed 05/03/2016 99190 Inject/Drain Joint/Bursa Intermediate W/O US Completed 04/10/2016 16377 Admin Of Inj Completed 04/10/2016 90848 Chemotherpy Admin Subcutaneous/Im Non-Hormonal Completed Anti-Neoplastic 09/10/2015 739690943 Bone Mineral Density Test Completed 09/07/2015 27076 Chemotherpy Admin Subcutaneous/Im Non-Hormonal Completed Anti-Neoplastic 07/29/2015 62809 Stress Test Completed 07/29/2015 86672 Myocardial Perfusion Imaging Tomographic (Spect) Completed Multiple Studies 07/16/2015 64175 EKG Tracing & Interpretation Completed 02/15/2015 81701 Chemotherpy Admin Subcutaneous/Im Non-Hormonal Completed Anti-Neoplastic 12/22/2014 60404 Trigger Finger Release Incision / Tendon Sheath Completed Incision 12/22/2014 89586 Trigger Finger Release Incision / Tendon Sheath Completed Incision 12/11/2014 71730 EKG Tracing & Interpretation Completed 08/13/2014 84870 Admin Of Inj Completed 07/06/2014 71048 Treadmill Interp/Report Only Completed 07/06/2014 67067 Stress Test Supervsn W/Out I/R Completed 07/02/2014 71883 ECHO Transthorasic Realtime 2D W Doppler & Color Flow Completed Hosp 07/02/2014 19799 EKG, Interpretation Only Completed 07/01/2014 92189 EKG, Interpretation Only Completed 07/01/2014 32552 EKG, Interpretation Only Completed 06/15/2014 60520 Inject Tendon Sheath Or Ligament Aponeurosis Eg Completed Plantar Fascia 04/09/201488694 Inject/Drain Joint/Bursa Major W/O US Completed 01/28/2014 89122 Admin Of Inj Completed 12/29/2013 305799258 Bone Mineral Density Test Completed 12/29/2013 08104348 Mammogram Completed 12/04/201391174 Inject Tendon Sheath Or Ligament Aponeurosis Eg Completed Plantar Fascia 11/13/201361545 Inject/Drain Joint/Bursa Major W/O US Completed 05/27/2013 31375 EKG Tracing & Interpretation Completed 05/08/2013 83214 Stress Test Completed 05/08/2013 18107 Myocardial Perfusion Imaging Tomographic (Spect) Completed Multiple Studies 05/06/201312564 Inject/Drain Joint/Bursa Major W/O US Completed 05/01/2013 84921 ECHO Transthoracic, Real-Time 2D With Doppler And Completed Color Flow 04/29/2013 77010 EKG Tracing & Interpretation Completed 11/28/2012 61392 Inject Tendon Sheath Or Ligament Aponeurosis Eg Completed Plantar Fascia 11/28/201209806 Inject/Drain Joint/Bursa Major W/O US Completed 11/15/2012 07015 EKG Tracing & Interpretation Completed 06/21/2012 47948 Rad Exam; Hip Unilat Completed 06/21/2012 31937 Rad Exam; Hip Unilat Completed 06/21/2012 34326 Rad Exam; Pelvis Completed 06/21/2012 08813 Rad Exam; Pelvis Completed 04/01/2012 55171 Inject/Drain Joint/Bursa Intermediate W/O US Completed 09/20/2011 71395 Rad Shoulder Comp, Min. 2 Views Completed 09/20/201101327 Inject/Drain Joint/Bursa Major W/O US Completed 06/02/2011 84967 Rad Exam; Knee, Ap&L Completed 06/02/2011 22026 Xray Knee 3 Views Completed 11/14/2010 18546 Rad Exam; Knee, Ap&L Completed 11/14/2010 34255 Rad Exam; Both Knees, Standing Ap Completed 10/03/2010 44834 Rad Exam; Toes Completed 10/03/2010 06395 Rad Exam; Both Knees, Standing Ap Completed 10/03/2010 75356 Rad Exam; Knee, Ap&L Completed 09/20/2010 84716 Revision TKA W Or W/O Allograft;Femoral & Entire Completed Tibial Component 09/20/2010 10874 Revision TKA W Or W/O Allograft;Femoral & Entire Completed Tibial Component 09/07/2010 04739 Xray Knee 3 Views Completed 09/07/201092292 Inject/Drain Joint/Bursa Major W/O US Completed 02/23/201044660 Inject/Drain Joint/Bursa Major W/O US Completed 02/16/2010 30554 Xray Knee 3 Views Completed 02/16/2010 54453 Rad Exam; Knee, Ap&L Completed 01/22/2009 74175275 Colonoscopy Completed Encounters Type Date Location Provider Dx Diagnosis Office Visit 05/17/2018 Orthopedic Shahram Lyons MD 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 shoulder Office 03/12/2018 [facility] Renita E11.40 Type 2 diabetes Visit 9:32a immanuel Phan M.D. mellitus with Hospitalists diabetic neuropathy, unsp Z98.890 Other specified postprocedural states G47.33 Obstructive sleep apnea (adult) (pediatric) E11.9 Type 2 diabetes mellitus without complications E66.01 Morbid (severe) obesity due to excess calories Z68.41 Body mass index (BMI) 40.0-44.9, adult Office Visit 02/27/2018 Neurosurgery Stephen Calixto, M48.04 Spinal stenosis , 10:00a Services Of Flash Scott thoracic region Office Visit 02/25/2018 Spine Navigator Of Patience Davila, M48.062 Spinal stenosis, 9:00a Flash GREGORIO lumbar region with neurogenic claudication M48.04 Spinal stenosis, thoracic region Office Visit 01/23/2018 [facility] Yayo M48.05 Spinal stenosis, 8:37a Assimmanuel clark PA thoracolumbar Hospitalists region G95.89 Other specified [...] Patience Davila, M48.04 Spinal stenosis, Services Of [facility] PA-C thoracic region R53.1 Weakness W19.xxxA Unspecified fall, initial encounter Office Visit 01/22/2018 8:36a [facility] Rachel Medellin, R53.1 Weakness Assoc, Hospitalists GARNISHMENT SPECIALIST I10 Essential (primary) hypertension E11.9 Type 2 diabetes mellitus without complications I25.10 Athscl heart disease of [place] coronary artery w/o ang pctrs D64.9 Anemia, unspecified M25.512 Pain in left shoulder M48.05 Spinal stenosis, thoracolumbar region Office Visit 01/21/2018 Neurohospitalist Lenora Mccarty, 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 Office Visit 05/21/2017 11:39a [facility] Ass, Herman Burrell MD K92.1 [facility] Hospitalists E11.59 Type 2 diabetes mellitus with oth circulatory complications 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 Office Visit 11/21/2016 Pulmonology And Melony G47.33 Obstructive sleep 10:45a Sleep Services Of COLLEEN Noriega RN, apnea (adult) [facility] (pediatric) G47.14 Hypersomnia due to medical condition Office Visit 09/29/2016 Pulmonology And Melony G47.33 Obstructive sleep 10:00a Sleep Services Of COLLEEN Noriega RN, apnea (adult) [facility]- (pediatric) G89.29 Other chronic pain G47.14 Hypersomnia due to medical condition F40.240 Claustrophobia E66.09 Other obesity due to excess calories Z68.36 Body mass index (BMI) 36.0-36.9, adult Office Visit 09/12/2016 10:00a Rheumatology Nadine M81.0 Age-related Services Of [facility] [place], [facility] osteoporosis w/o current pathological fracture Z92.29 Personal history of other drug therapy M54.5 Low back pain Office Visit 08/16/2016 2:40p Rheumatology Nadine Toro, M79.604 Pain in Services Of [facility] right leg M81.0 Age-related osteoporosis w/o current pathological fracture M54.42 Lumbago with sciatica, left side Office Visit 08/08/2016 8:45a Pulmonology And Kim R06.81 Apnea, not Sleep Services Of MD Henri elsewhere [facility] classified R06.83 Snoring R40.0 Somnolence R51 Headache G47.8 Other sleep disorders R12 Heartburn E66.09 Other obesity due to excess calories Z68.37 Body mass index (BMI) 37.0-37.9, adult Office Visit 07/21/2016 11:00a [facility] BLACK Arevalo 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 N18.9 Chronic kidney disease, unspecified I12.9 Hypertensive chronic kidney disease w stg 1-4/unsp chr kdny Office Visit 06/14/2016 9:00a [facility] Xiomy Wilson, R07.9 Chest pain, Of [facility] PA unspecified I25.10 Athscl heart disease of [place] coronary artery w/o ang pctrs N18.9 Chronic [...] Toro, R21 Rash and other Services Of [facility] nonspecific skin [employer] eruption M81.0 Age-related osteoporosis w/o current pathological fracture E55.9 Vitamin D deficiency, unspecified Z79.899 Other fci (current) drug therapy Office Visit 12/08/2015 11:00a Rheumatology Kimberlyofiyoni M81.0 Age-related Services Of [employer] [place], [facility] osteoporosis w/o current pathological fracture E55.9 Vitamin D deficiency, unspecified N18.3 Chronic kidney disease, stage 3 (moderate) Z79.899 Other fci (current) drug therapy Office Visit 09/07/2015 11:30a Rheumatology Kimberlyofiyoni M81.0 Age-related Services Of [employer] [place], [facility] osteoporosis w/o current pathological fracture K21.9 Gastro-esophageal reflux disease without esophagitis N18.3 Chronic kidney disease, stage 3 (moderate) E55.9 Vitamin D deficiency, unspecified Z92.29 Personal history of other drug therapy Office Visit 08/20/2015 9:30a [facility] Carson Anderson 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 disease of [place] coronary artery w/o ang pctrs R07.9 Chest pain, unspecified Office Visit 07/16/2015 9:15a [facility] Carson Anderson 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 disease of [place] coronary artery w/o ang pctrs I10 Essential [...] osteoporosis w/o current pathological fracture Z79.899 Other buttermaker (current) drug therapy M79.7 Fibromyalgia Office Visit 02/12/2015 11:00a [facility] Carson Anderson I10 Essential (primary) Of Flash Hartley M.D. hypertension I25.10 Athscl heart disease of [place] coronary artery w/o ang pctrs Office Visit 01/15/2015 [facility] K92.2 Gastrointestinal 10:32a Assoc,immanuel Durham, GARNISHMENT SPECIALIST hemorrhage, Hospitalists unspecified E13.9 Other specified diabetes mellitus without complications I10 Essential (primary) hypertension Office Visit 01/14/2015 [facility] K92.2 Gastrointestinal 10:30a Assoc,immanuel Durham, GARNISHMENT SPECIALIST hemorrhage, Hospitalists unspecified E13.9 Other specified diabetes mellitus without complications I10 Essential (primary) hypertension Office Visit 12/11/2014 3:30p [facility] BLACK Arevalo 727.03 Trigger Finger Of [employer] Acquired 401.9 Hypertension Unspec 414.00 Coronary Atherosclerosis Unspec Type Vessel [place] 715.09 Osteoarthrosis Generalized Multiple Sites V72.81 Examination Preoperative Cardiovascular Office Visit 12/09/2014 1:30p Orthopedic Services Of Lore Higginbotham, 724.2 Lumbago C.M.A. RPA-C 727.03 Trigger Finger Acquired Office Visit 10/26/2014 1:22p [facility] 584.9 Acute Kidney Assoc,immanuel Bhagat M.D. Failure, Hospitalists Unspecified 786.05 Shortness Of Breath 276.8 Hypopotassemia 401.9 Hypertension Unspec [facility] 584.9 Acute Kidney 1:21p Assoc,immanuel BOB M.D. Failure, Hospitalists Unspecified 786.05 Shortness Of Breath 276.8 Hypopotassemia 401.9 Hypertension Unspec Office Visit 10/16/2014 [facility] 562.12 Diverticulosis 11:43a immanuel Phan M.D. Colon W/ Hemorrhage Hospitalists 401.9 Hypertension Unspec Office Visit 10/15/2014 [facility] 562.12 Diverticulosis 11:43a immanuel Phan M.D. Colon W/ Hemorrhage Hospitalists 414.00 Coronary Atherosclerosis Unspec Type Vessel [place] 401.9 Hypertension Unspec Office Visit 10/14/2014 [facility] 562.12 Diverticulosis 11:42a immanuel Phan M.D. Colon W/ Hemorrhage Hospitalists 414.00 Coronary Atherosclerosis Unspec Type Vessel [place] 401.9 Hypertension Unspec Office Visit 10/13/2014 [facility] 562.12 Diverticulosis 11:41a immanuel Phan M.D. Colon W/ Hemorrhage Hospitalists 414.00 Coronary Atherosclerosis Unspec Type Vessel [place] 401.9 Hypertension Unspec Office Visit 10/12/2014 [facility] 562.12 Diverticulosis 11:41a immanuel Phan M.D. Colon W/ Hemorrhage Hospitalists 414.00 Coronary Atherosclerosis Unspec Type Vessel [place] 401.9 Hypertension Unspec Office Visit 10/11/2014 [facility] 562.12 Diverticulosis 11:40a immanuel Phan M.D. Colon W/ Hemorrhage Hospitalists 414.00 Coronary Atherosclerosis Unspec Type Vessel [place] 401.9 Hypertension Unspec Office Visit 08/13/2014 Rheumatology Phillip Sheffield, 733.01 Osteoporosis 10:20a Services Of Flash Scott Senile 724.00 Spinal Stenosis Unspec Region 338.4 Chronic Pain Syndrome 715.09 Osteoarthrosis Generalized Multiple Sites Office Visit 07/06/2014 [facility] 578.9 Hemorrhage 12:48p immanuel Phan M.D. Gastrointestinal Hospitalists Tract Unspec 530.81 Esophageal Reflux 285.1 Anemia Posthemorrhagic Acute 276.8 Hypopotassemia Office Visit 07/05/2014 2:08p [facility] Sommer SEladio 414.9 Ischemic Heart Tyler Gordon Disease Chronic Unspec 794.31 Electrocardiogram (ECG) (EKG) Abnormal 401.1 Hypertension Benign V45.82 Percutaneous Transluminal Coronary Angioplas Postsurg Status Office Visit 07/05/2014 [facility] 578.9 Hemorrhage 12:45p immanuel Phan M.D. Gastrointestinal Hospitalists Tract Unspec 276.8 Hypopotassemia 285.1 Anemia Posthemorrhagic Acute Office Visit 07/04/2014 [facility] 578.9 Hemorrhage 12:45p immanuel Phan M.D. Gastrointestinal Hospitalists Tract Unspec 530.81 Esophageal Reflux 285.1 Anemia Posthemorrhagic Acute 276.8 Hypopotassemia Office 07/03/2014 [facility] Oracio Steinberg 425.11 Hypertrophic Visit 3:45p Of Flash Danielle M.D., Obstructive FACC, FASNC Cardiomyopathy Office 07/03/2014 [facility] 578.9 Hemorrhage Visit 12:44p immanuel Phan M.D. Gastrointestinal Hospitalists Tract Unspec 584.9 Acute Kidney Failure, Unspecified 530.81 Esophageal Reflux 285.1 Anemia Posthemorrhagic Acute Office Visit 07/02/2014 [facility] Lucia 578.9 Hemorrhage 12:42p immanuel Phan DO Gastrointestinal Hospitalists Tract Unspec 530.81 Esophageal Reflux 786.50 Pain Chest Unspec 285.1 Anemia Posthemorrhagic Acute Office Visit 07/02/2014 10:33a [facility] Jacquelyn [place], 780.2 Syncope & Of Flash Scott Collapse 414.9 Ischemic Heart Disease Chronic Unspec Office Visit 07/01/2014 [facility] Lucia 578.9 Hemorrhage 12:42p Assoc,immanuel CovarrubiasDO Gastrointestinal Hospitalists Tract Unspec 584.9 Acute Kidney Failure, Unspecified 530.81 Esophageal Reflux 285.1 Anemia Posthemorrhagic Acute Office Visit 06/30/2014 [facility] Naeem Reid, 578.9 Hemorrhage 12:41p Assoc,immanuel Soctt Gastrointestinal Hospitalists Tract Unspec 530.81 Esophageal Reflux [...] Replacement By Other Means Office Visit 05/27/2014 [facility] Anderson 414.01 Coronary 10:30a Cardiology Of Tyler Hartley Atherosclerosis [facility] [place] 401.9 Hypertension Unspec Office Visit 04/23/2014 Rheumatology [...] Stage III Moderate Office Visit 12/11/2013 1:45p [facility] Carson Anderson 786.50 Pain Chest Of Flash Hartley M.D. Unspec 401.9 Hypertension Unspec 414.01 Coronary Atherosclerosis [place] Office Visit 12/04/2013 Orthopedic Krystle 727.03 Trigger [...] Not Elsewhere Class Office Visit 05/27/2013 1:45p [facility] Carson Anderson 786.50 Pain Chest Of [employer] AT [facility] Tyler Hartley Unspec 401.9 Hypertension Unspec 786.05 Shortness Of Breath Office Visit 05/12/2013 10:26a [facility] 786.51 Pain Precordial Assoc,pc Jaskaran DAguilar Hospitalists 785.1 Palpitations 278.01 Obesity Morbid Office Visit 05/11/2013 10:26a [facility] [place] 786.51 Pain Precordial Assoc,immanuel Jessica DEladioO. Hospitalists 785.1 Palpitations 278.01 Obesity Morbid Office Visit 05/06/2013 11:15a Orthopedic Lula Ferrari 718.81 Derangement Joint Services Of [facility] Other Not C.M.A. Elsewhere Class Shoulder 726.10 Bursae & Tendon Disorders Shoulder Region Unspec 726.2 Shoulder Region Affections Other Not Elsewhere Class Office Visit 04/29/2013 1:15p [facility] Carson Anderson 786.50 Pain Chest Of [facility] AT [facility] Tyler Hartley Unspec 786.05 Shortness Of Breath 414.01 Coronary Atherosclerosis [place] 401.9 Hypertension Unspec Office Visit 11/28/2012 11:15a Orthopedic Krystle Crissotomo 727.82 Calcium Services Of Tyler Deposits Tendon C.M.A. & Bursa 727.03 Trigger Finger Acquired 726.2 Shoulder Region Affections Other Not Elsewhere Class Office Visit 11/15/2012 10:15a [facility] Carson D. 414.9 Ischemic Heart Of [facility] Tyler Hartley Disease Chronic Unspec 401.9 Hypertension Unspec Office Visit 07/16/2012 11:45a Orthopedic Services Billy Cantrell 719.45 Pain Joint Of C.M.Jcarlos Scott Pelvic Region & Thigh 729.2 Neuralgia [...] Of C.M.A. RPA-C Medial Office Visit 01/26/2012 [facility] Renita 786.51 Pain Precordial 12:43p Assoc,immanuel De Jesus M.D. Hospitalists 414.01 Coronary Atherosclerosis [place] 401.9 Hypertension Unspec Office Visit 01/25/2012 12:43p [facility] Naeem Reid 786.51 Pain Precordial Assoc,immanuel Scott Hospitalists 414.01 Coronary Atherosclerosis [place] 401.9 Hypertension Unspec 272.2 Hyperlipidemia Mixed Office Visit 11/20/2011 2:30p Orthopedic Lula 726.31 Epicondylitis Medial Services Of NOHEMI FerrariC C.M.AEladio Office Visit 09/20/2011 8:15a Orthopedic Virgil Spence 726.11 Tendinitis Services Of Tyler Calcifying Shoulder C.M.A. Office Visit 06/02/2011 3:45p Orthopedic Virgil Spence, 715.96 Osteoarthrosis Services Of M.D. Unspec Genlzd Or C.M.A. Localized Lower Leg Office Visit 09/07/2010 2:45p Orthopedic Virgil Spence, 719.06 Effusion Joint Lower Services Of M.D. Leg C.M.A. 996.41 Mechanical Loosening Of Prosthetic Joint Office Visit 02/23/2010 2:30p Orthopedic Virgil Spence 996.41 Mechanical Services Of M.D. Loosening Of C.M.A. Prosthetic Joint Office Visit 02/16/2010 9:00a Orthopedic Virgil Spence, 996.41 Mechanical Services Of M.D. Loosening Of C.M.A. Prosthetic Joint 719.46 Pain Joint Lower Leg Office Visit 11/01/2009 DO Not Use [employer] Jamisonananda, 272.4 Hyperlipidemia Other 10:00a AT Sybil Sol MD Unspec 414.01 Coronary Atherosclerosis [place] Office Visit 10/14/2009 10:00a DO Not Use [employer] Linkndyoni, 530.81 Esophageal AT Sybil Sol MD Reflux 599.0 UTI Urinary Tract Infection Site Not Spec 272.4 Hyperlipidemia Other Unspec Office Visit 07/09/2009 1:20p DO Not Use [employer] Chio, 112.1 Candidiasis The AT Sybil Mendieta M.D. 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 307.42 Sleep Disorder Persistent Initiating Or Maintaining Sleep 272.4 Hyperlipidemia Other Unspec 278.00 Obesity Unspec 401.9 Hypertension Unspec 716.86 Arthropathy Other Spec Lower Leg 530.81 Esophageal Reflux 840.4 Sprains & Strains Rotator Cuff (Capsule) 414.01 Coronary Atherosclerosis [place] 412 Myocardial Infarction Old 300.00 Anxiety State Unspec 565.0 Anal Fissure Office Visit 05/02/2009 12:15a [facility] Randal Lerma, 786.50 Pain Chest Assoc,immanuel Scott Unspec Hospitalists Office Visit 04/30/2009 2:30a [facility] Renita 786.50 Pain Chest Assoc,pc Liza, M.D. Unspec Hospitalists 401.9 Hypertension Unspec Office Visit 04/29/2009 2:15a [facility] Renita 786.50 Pain Chest Unspec Assoc,immanuel De Jesus M.D. Hospitalists Office Visit 04/19/2009 3:00p Neurosurgery Rob Johnson 721.0 Spondylosis Services Of Flash Salguero M.D. Cervical W/O Myelopathy Office Visit 03/22/2009 9:40a DO Not Use [employer] AT Eusebio Barroso.42 Sleep Disorder Sybil Mendieta M.D. 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 Mellitus W/O Compl Type II Or Unspec Controlled 278.00 Obesity Unspec 401.9 Hypertension Unspec 272.4 Hyperlipidemia Other Unspec 716.86 Arthropathy Other Spec Lower Leg 530.81 Esophageal Reflux 414.01 Coronary Atherosclerosis [place] 412 Myocardial Infarction Old 565.0 Anal Fissure Plan of Treatment Future Appointment(s):07/09/2018 1:45 pm - Shahram Lyons MD at [facility].06/24/2018 10:30 am - RAY Pak at [facility]09/23/2018 10:45 am - Krystle Crisostomo M.D. at [facility]06/18/2018 - Shahram Lyons, MDM19.012 Primary osteoarthritis, left shoulderNew Xrays:Inj/Aspir Major JT Or Bursa W/ US, Ordered: 06/18/18Follow up:Follow up: 2-3 weeks
--- OUTSIDE RECORDS SUMMARY | 2018-06-20 12:14 | XMS REPORT | Continuity of Care Document ---
:1935 External Reference #:[id number] Author Name Yashira Murrieta Care Team Providers Name Role Phone [facility] Primary Care Physician Unavailable Payers Date Identification Numbers Payment Provider Subscriber Effective: 1989 Policy Number: [id number] Medicare Deion Perdomo PayID: [id number] [facility] [address] [place] [address] Effective: 2017 Policy Number: [id number] [facility] Deion Perdomo Expires: 2018 Group Number: [id number] PayID: [id number] [address] Advance Directives Description No Information Available Problems [...] apnea syndrome Melony Noriega DNP, RN, Active [employer]ODUCTION TRAINER-BC Onset: 09/29/2016 Hypersomnia Melony Noriega DNP, RN, Active PRODUCTION TRAINER-BC Onset: 01/20/2018 Walking disability Jailene Mitchell MD [...] Patient has never smoked Smoking Status Reviewed: 05/22/18 Patient has never smoked Exercise Type/Frequency Exercises [...] Walker 04/01 Active 1unit Use as Z48.89 s directed for [place], ambulation M.D. Cyclobenzaprine 03/22 Active Tablets 10mg 60tab 1 by mouth s twice a day Marily, as needed M.DEladio spasm Prolia 10/15 Active Solution 60mg/ml 60mg 60 mg sc M81.0 ofi q6mon [place], PRODUCTION TRAINER Rollator Walker 06/04 Active use as Krystle /2018 needed Tyler Crisostomo Vitamin A 03/30 Active Capsules [id number] 1 daily RAY Toro Diltiazem HCL ER 01/17 Active Caps ER 180mg 90cap 1 po qd Carson Anderson 24HR s Tyler Hartley Calcium 09/13 Active Tablets 600-800mg 60tab 1 by mouth M81.0 Zsofia 600/Vitamin D3 /2016 -Unit s twice a day RAY Toro Prolia 09/12 Active Solution 60mg/ml 60mg 60 mg sc M81.0 ofi q6mon [place], PRODUCTION TRAINER Ibuprofen 08/16 Active Tablets 800mg 60tab 1 tab by M54.32 ofi s mouth three [place]ez, times a day PRODUCTION TRAINER with food as needed Triamcinolone 02/27 Active Lotion 0.025% 60ml use on R21 Zsofia Acetonide affected [place], area 2x PRODUCTION TRAINER daily as needed Nitrostat 12/31 Active Tablets 0.4mg 25tab one sl q5min Carson Anderson Sub s up to 3 Naeem, doses Tyler barragan if no relief call 911 Simvastatin 12/16 Active Tablets 20mg 90tab 1 tablet at 250.00 Chio s bed time , Tyler Mendieta Baby Aspirin 12/16 Active Chewtabs 81mg 100un 1 tablet po 250.00 its daily Anam M.D. Lisinopril Active Tablets 10mg 90tab 1 po qd Stevano Anam rodrigues M.D. Cod Liver Oil Active Capsule 1 cap po qd Unknown Plus Vitamin A&D3 Potassium Active Tablet 10Meq One tab 250.00 Unknown Chloride daily Valacyclovir HCL Active Tablets 500mg 60tab take 1 Unknown s tablet by mouth twice a day Travatan Z Active Solution 0.004% one drop in Unknown / each eye at hs Omeprazole Active Capsules 20mg 1 cap po Unknown / DR twice daily Docusate Sodium Active 50mg 2 tablet po Unknown daily Iron Active Tablets 325(65Fe) 1 by mouth Unknown / mg every day Oxycodone-Acetam Active Tablets 5-325mg 1 po pm Linda-He inophen / Chloe alan, BLACK Centrum Adults Active Tablets as directed Unknown / Cranberry Active 8400mg 1 daily Unknown / Gabapentin Active Capsules 100mg 1 capsule Unknown /0000 three times daily. Hydralazine HCL Active Tablets 10mg 1 tab by Unknown /0000 mouth with food twice daily Polyethylene Active Granules 3350 dissolve one Unknown Glycol 3350 /0000 capful (17g) in 8 ounces of water by mouth every 48 hours as needed constipation Ferrous Sulfate Active Tablets 325mg 1 by mouth Unknown / every day Eq Loratadine Active Tablets 10mg Unknown / Senna Laxative Active Tablets 8.6mg 1 tab by Unknown /0000 mouth every night at bedtime Magnesium Active Powder Unknown Hydroxide Sorbitol Active Solution 70% Unknown / Calcium 1000 + D 09/12 Hx Tablets 1000-800m 90tab 1 by mouth M81.0 ofi g-Unit s every day Cortez, - PRODUCTION TRAINER 09/21 Calcium 600 09/06 Hx Tablets 600mg 180ta 1 tab by M81.0 Zsofi bs mouth 2x Cortez, - daily PRODUCTION TRAINER 09/12 Percocet 04/19 Hx Tablets 5-325mg 80tab [...] 60mg/ml 60mg 60 mg sc M81.0 Norbert /2014 q6mon Tyler Kidd - 08/07 M81.0 Caltrate 01/14/2014 Hx Tablets [id number] 60tabs 1 po bid 733.00 Norbert 600+D - Kidd, 02/11/2015 M.DEladio Cymbalta 01/14/[address] [...] Dirk - for 3 days Jordy, 04/26/2013 Tyler Percocet 09/12/2010 Hx Tablets 5-325mg 60tabs 1-2 po q4h Dirk - prn pain Jordy, 04/26/2013 Kiah.DEladio Coumadin 09/12/2010 Hx Tablets 2.5mg 50tabs use [...] hour ic, 08/11/2009 prior to tiffanie Mendieta M.DEladio and 1 tablet at procedure Isosorbide [...] Ordering Provider Depomedrol Administered Injection Krystle 40MG 019 Tyler Crisostomo Depomedrol Administered Injection Krystle 40MG 018 Tyler Crisostomo Prolia Administered Injection Nurse Visit Injection, 018 RH Denosumab, 1MG [place] Depomedrol Administered Injection Krystle 40MG 018 Tyler Crisostomo Depomedrol Administered Injection Krystle 40MG 018 Tyler Crisostomo Prolia Administered Injection Nurse Visit Injection, 018 RH Denosumab, 1MG Prolia Administered Injection Zsofia Injection, 017 RAY Toro Denosumab, 1MG Depomedrol Administered Injection Virgil Spence, 40MG 017 Tyler Depomedrol Administered Injection Dirk Jordy, 40MG 017 M.DEladio Prolia Administered Injection Nurse Visit Injection, 017 C Denosumab, 1MG Prolia Administered Injection Zsofia Injection, 016 Cortez, PRODUCTION TRAINER Denosumab, 1MG Inj, Administered Injection Carson DEladio Regadenoson, 016 Tyler Hartley 0.1 MG Technetium TC Administered Injection Carson DEladio 99M 016 Tyler Hartley Tetrofosmin, Per Unit Dose Up To 40 Millicuries Prolia Administered Injection Phillip Injection, 015 Endo, M.D. Denosumab, 1MG Prolia Administered Injection Phillip Injection, 015 Endo, MEladioD. Denosumab, 1MG Depomedrol Administered Injection Dirk Jordy, 20MG 015 M.DEladio Depomedrol Administered Injection Billy 80MG 015 Tyler Cantrell Prolia Administered Injection Nurse Visit Injection, 014 RH Denosumab, 1MG Depomedrol Administered Injection Krystle 80MG 014 Tyler Crisostomo Depomedrol Administered Injection Billy 80MG 014 Tyler Cantrell Inj, Administered Injection Carson D. Regadenoson, 014 Tylre Hartley 0.1 MG Technetium TC Administered Injection [...] CPT Code Status Date Vaccine Lot # [id number] Given 12/23/2008 Zoster (Zostavax) Vital Signs Date Vital Result Comment 05/22/2018 1:13pm Height 60 inches 5'0" Weight [...] Result H/L Range Note Laboratory test 03/13/2018 [facility] MRSA Screen SEE RESULT 1, [address] [place] [address] [phone] Laboratory test 03/13/2018 [facility] Point of Care 141 mg/dL High 70-100 [address] [place] [address] [phone] Laboratory test 03/13/2018 [facility] Point of Care 139 mg/dL High 70-100 [address] [place] [address] [phone] Laboratory test 03/12/2018 [facility] Point of Care 173 mg/dL High 70-100 [address] [place] [address] [phone] CBC No Diff 03/05/2018 [facility] White Blood 8.3 10^3/uL N 3.5-10.[address] [place] [address] [phone] Red Blood Count 4.00 10^6/uL N 4.00-5.40 [...] fL N 7.4-10.4 Basic Metabolic Panel 03/05/2018 [facility] Sodium 137 mmol/L N 135-[address] [place] [address] [phone] Potassium 3.9 mmol/L N 3.5-5.0 Chloride 99 mmol/L Low 101-111 Co2 Carbon Dioxide 31 mmol/L N 22-32 Anion Gap 7 mmol/L N 2-11 Glucose 90 mg/dL N 70-100 Blood Urea Nitrogen 23 mg/dL N 6-24 Creatinine 1.18 mg/dL High 0.51-0.95 BUN/Creatinine Ratio 19.5 N 8-20 Calcium 10.0 mg/dL N 8.6-10.3 Egfr Non- 44.1 >60 Egfr 53.3 >60 7 Laboratory test 11/22/2017 [facility] Calcium 5.08 mg/dL N 4.65-5.[address] [place] [address] [phone] Pthi 11/22/2017 [facility] Calcium (PTH 9.8 mg/dL N 8.6-10.[address] Intact) [place] [address] [phone] PTH Intact 3.3 pmol/L N 1.3-9.3 Laboratory test 11/22/2017 [facility] Vitamin D 50.8 ng/mL High 20-[address] Total 25(Oh) [place] [address] [phone] Comp Metabolic 2017 [facility] Sodium 135 mmol/L N 133- [address] [place] [address] [phone] Potassium 4.0 mmol/L N 3.5-5.0 Chloride 99 [...] 45.4 >60 8 Total Protein 24HR 2017 [facility] Urine Collection Time [address] [place] [address] [phone] Urine Total Volume 1600 mL Urine Random Total Protein 19 mg/dL Urine Total Protein/24HR 304 mg/24Hr High 0-165 Creatinine 2017 [facility] Creatinine 1.44 mg/dL High 0.51-0.[address] [place] [address] [phone] Urine Collection Time 24 Urine Total Volume 1600 mL Urine Random Creatinine 70.42 mg/dL Creatinine Clearance 54 mL/min Low 88-128 Laboratory test 03/22/2016 [facility] Vitamin D 40.0 ng/mL N 30-50 9, [address] Total 25(Oh) [place] [address] [phone] Comp Metabolic 03/22/2016 [facility] Sodium 137 mmol/L N 133- [address] [place] [address] [phone] Potassium 3.8 mmol/L N 3.5-5.0 Chloride 98 [...] N >60 Egfr 40.1 N >60 11 Pthi 03/22/2016 [facility] Calcium (PTH Intact) 9.9 mg/dL N 8.6-10.[address] [place] [address] [phone] PTH Intact 4.2 pmol/L N 1.3-9.3 Laboratory test 03/22/2016 [facility] Vitamin D, 43 pg/mL N 18 -78 [address] 1,25 Dihydroxy [place], [place] [address] [phone] Laboratory test 12/15/2015 [facility] Vitamin D 38.1 ng/mL N 30-50 [address] Total 25(Oh) [place] [address] [phone] Pthi 12/15/2015 [facility] Calcium (PTH 9.8 mg/dL N 8.6-10.[address] Intact) [place], [place] [address] [phone] PTH Intact 4.3 pmol/L N 1.3-9.3 Comp Metabolic Panel 12/15/2015 [facility] Sodium 138 mmol/L N 133-[address] [place] [address] [phone] Potassium 3.9 mmol/L N 3.5-5.0 Chloride 101 [...] 40.4 N >60 14 PTH, Intact 09/03/2015 [facility] Calcium (PTH 9.8 mg/dL N 8.6 -10.[address] Intact) [place] [address] [phone] PTH Intact 8.3 pmol/L N 1.3-9.3 Laboratory test 09/03/2015 [facility] Vitamin D 29.0 ng/mL Low 30-[address] Total 25(Oh) [place] [address] [phone] Vitamin D, 1,25 Dihydroxy 53 pg/mL N 18-78 15 Phosphorus 3.5 mg/dL N 2.5-5.0 Calcium Ionized 4.77 mg/dL N 4.65-5.28 CMP Panel 09/03/2015 [facility] Sodium 136 mmol/L N 133-[address] [place] [address] [phone] Potassium 3.6 mmol/L N 3.5-5.0 Chloride 101 [...] Egfr 50.5 N >60 16 Hemoglobin/Hematacrit 01/18/2015 [facility] Hemoglobin 8.0 Low 12.0-16.[address] g/[place] [address] [phone] Hematocrit 25 % Low 35-47 CBC Auto Diff 05/06/2014 [facility] White Blood 7.2 10^3/uL N 4.8-10.[address] [place] [address] [phone] Red Blood Count 4.22 10^6/uL N 4.0-5.4 [...] % 0 N Comp Metabolic Panel 05/06/2014 [facility] Sodium 139 mmol/L N 133-[address] [place] [address] [phone] Potassium 4.1 mmol/L N 3.5-5.0 Chloride 102 [...] 47.4 N >60 17 Laboratory test 05/06/2014 [facility] C Reactive 4.35 mg/L N < 5.00 18 finding [address] [place] [address] [phone] Erythrocyte Sed Rate 45 mm/Hr High 0-40 Urine Culture And 03/09/2014 [facility] Urine Culture (SEE NOTE ) 19 Sensitivities [address] [place] [address] [phone] Urinalysis Profile 03/09/2014 [facility] Urine Color Yellow N [address] [place] [address] [phone] Urine Appearance Cloudy N Urine Specific Mildred 1.013 N 1.010-1.030 Urine pH 8.0 N [...] Amorphous Crystals Present Abnormal Absent Pthi 12/29/2013 [facility] PTH Intact 14.6 pmol/L High 1.3- 9.3 [address] [place] [address] [phone] Calcium (PTH Intact) 9.2 mg/dL N 8.6-10.3 Protein 12/29/2013 [facility] Total 7.8 g/dL N 6.3 - Electrophoresis [address] Protein(Pep) 7.9 [place] [address] [phone] Albumin 3.6 g/dL N 3.4-4.7 Alpha-1 Globulin 0.3 g/dL N 0.1-0.3 Alpha-2 Globulin 1.1 g/dL Abnormal 0.6-1.0 Beta Globulin 1.1 g/dL N 0.7-1.2 Gamma Globulin 1.8 g/dL Abnormal 0.6-1.6 Albumin/Globulin Ratio 0.84 N Impression See Comment N 20 Vitamin D, 25 12/29/2013 [facility] 25-Hydroxy Vitamin <4.0 ng/ mL N Hydroxy [address] [place] [address] [place] [address] [phone] 25-Hydroxy Vitamin D3 29 ng/mL N 25-Hydroxy Vitamin D Total 29 ng/mL N 21 RBC Leukoreduced 09/22/2010 [facility] RBC Leukoreduced [id number] O <SEE NOTE> [place] [address] [phone] Patient Blood Type O POSITIVE Antibody Screen NEGATIVE Laboratory test 09/22/2010 [facility] Release Date 09/25/[address] [place] [address] [phone] Hemoglobin/Hemata 09/21/2010 [facility] Hemoglobin 10.0 g/dL Low 12.0-[address] 6[address]0 [place] [address] [phone] Hematocrit 30 % Low 35-47 Basic Metabolic Panel 09/21/2010 [facility] Sodium 138 mmol/L 135-[address] [place] [address] [phone] Potassium 3.8 mmol/L 3.5-5.0 Chloride 98 mmol/L Low 101-111 Co2 (Carbon Dioxide) 34.0 mmol/L High 22-32 Anion Gap 6.0 mmol/L 2-11 24 Glucose 107 mg/dL High 70-100 BUN 17 mg/dL 6-24 Creatinine 1.00 mg/dL 0.50-1.40 One Over Creatinine 1.00 BUN/Creatinine Ratio 17.0 8-20 Calcium 8.0 mg/dL Low 8.1-9.9 eGFR Non- 54.3 > 60 eGFR 69.9 > 60 25 Urinalysis 09/12/2010 [facility] Ua Color YELLOW Yellow 26 W/Microscopic [address] [place] [address] [phone] Appearance-Urine CLOUDY Clear Specific Mildred-Ur 1.024 1.010-1.030 Esterase-Urine 3+ Abnormal Negative Nitrite NEGATIVE Negative Jdfxargdspdj-Ne-MXF NEGATIVE Negative Protein-Urine 1+ Abnormal Negative PH-Urine 6.0 5-9 Blood-Urine 3+ Abnormal Negative Ketones-Urine NEGATIVE Negative Bilirubin-Ur NEGATIVE Negative Glucose-Urine NEGATIVE Negative WBC-Urine TNTC Abnormal 0-5 RBC-Urine 2-5 0-2 Epith Cells-Ur FEW None Bacteria-Urine 4+ None Protime 09/12/2010 [facility] Inr 0.94 0.82-1.[address] [place] [address] [phone] Protime 11.1 SEC 10.2-14.8 28 Laboratory test 09/12/2010 [facility] PTT (Aptt) 29.6 25.15- 38.[address] [place] [address] [phone] Type And Screen 09/12/2010 [facility] Patient O POSITIVE (Pre-Adm) [address] [place] [address] [place] [address] [phone] Antibody Screen NEGATIVE Specimen Discard Date 09/26/10 29 RBC Leukoreduced [id number] O <SEE NOTE> 30 RBC Leukoreduced [id number] O <SEE NOTE> 31 Basic Metabolic Panel 09/12/2010 [facility] Sodium 138 mmol/L 135-[address] [place] [address] [phone] Potassium 3.6 mmol/L 3.5-5.0 Chloride 101 mmol/L 101-111 Co2 (Carbon Dioxide) 29.0 mmol/L 22-32 Anion Gap 8.0 mmol/L 2-11 32 Glucose 98 mg/dL 70-100 BUN 27 mg/dL High 6-24 Creatinine 0.87 mg/dL 0.50-1.40 One Over Creatinine 1.10 BUN/Creatinine Ratio 31.0 High 8-20 Calcium 9.5 mg/dL 8.1-9.9 eGFR Non- 63.8 > 60 eGFR 82.1 > 60 33 Laboratory test 09/12/2010 [facility] C Reactive 1.7 mg/dL High Less Than finding [address] Protein 0.5 [place] [address] [phone] CBC Auto Diff 09/12/2010 [facility] White Blood 10.8 CUMM 4.8 -10.[address] [place] [address] [phone] Red Cell Count 3.92 CUMM Low 4.2-5.4 Hemoglobin 11.6 g/dL Low 12.0-16.0 Hematocrit 36 % 35-47 Mean Corpuscular Volume 91 um3 79-97 Mean Corpuscular Hemoglob 29 pg 27-31 Mean Corpuscular HGB Cone 32 g/dL 32-36 Redcell Distribution WDTH 15 % 10.5-15 Platelet Count 294 CUMM 150-450 Mean Platelet Volume 7.8 um3 7.4-10.4 34 Manual Differential 09/12/2010 [facility] Polysegmented 76 % 38-[address] [place] [address] [phone] Lymphocyte 20 % Low 25-47 Monocyte 3 % 0-13 Eosinophil 1 % 0-6 Absolute Neutrophil Count 8.2 Anisocytosis SLIGHT Stomatocytes 1+ Laboratory test 09/12/2010 [facility] Erythrocyte 67 MM/HR High 0-[address] [place] [address] [phone] Urine Culture & 09/12/2010 [facility] Urine Culture ESCHERICHIA [address] [place] [address] [phone] Sensitivities 09/12/2010 [facility] Ampicillin >=32 R For Urine [address] [place] [address] [phone] Amikacin <=2 S Ciprofloxacin >=4 R Ceftriaxone <=1 S Cefazolin <=4 S Nitrofurantoin <=16 S Gentamicin <=1 S Imipenem <=1 S Levofloxacin 4 I Trimeth-Sulfa >=320 R Ceftazidime <=1 S Tigecycline <=0.5 S Piperacillin/Tazobactam KB 30 S Laboratory test 09/12/2010 [facility] Release Date 09/23/10 [address] [place] [address] [phone] Lipid Profile 10/22/2009 [facility] Triglyceride 160 mg/dL 40 -200 (Trig/Chol/HDL) [address] [place] [address] [phone] Cholesterol 167 mg/dL Less Than 200 37 High Density Lipoprotein 57 mg/dL 40-60 38 Cholesterol/HDL Ratio 2.93 AVERAGE 1-4.44 Low Density Lipoprotein 78 mg/dL Less Than 100 39 Laboratory test 10/22/2009 [facility] TSH 2.82 MIU/ML 0.34- 5.60 finding [address] [place] [address] [phone] Comp Metabolic 10/22/2009 [facility] Sodium 138 mmol/L 135- 145 Panel [address] [place] [address] [phone] Potassium 4.9 mmol/L 3.5-5.0 Chloride 104 mmol/L [...] > 60 44 CBC With Manual 10/22/2009 [facility] White Blood 8.3 CUMM 4.8-10.[address] [place] [address] [phone] Red Cell Count 4.52 CUMM 4.2-5.4 Hemoglobin [...] 5.1 RBC Morphology NORMAL Urinalysis W/Microscopic 07/09/2009 [facility] Ua Color YELLOW Yellow [address] [place] [address] [phone] Appearance-Urine CLEAR Clear Specific Mildred-Ur 1.017 1.010-1.030 Esterase-Urine 1+ Abnormal Negative Nitrite NEGATIVE Negative Wsgwgeccjmae-Wp-KTE NEGATIVE Negative Protein-Urine NEGATIVE Negative PH-Urine 6.0 5-9 Blood-Urine 2+ Abnormal Negative Ketones-Urine NEGATIVE Negative Bilirubin-Ur NEGATIVE Negative Glucose-Urine NEGATIVE Negative WBC-Urine 0-2 0-5 RBC-Urine 0-2 0-2 Epith Cells-Ur FEW None Ua Comments (SEE NOTE) 45 Urine Culture & 07/09/2009 [facility] Urine Culture NG 46 Sensitivi [address] [facility] [address] [phone] Laboratory test 07/09/2009 [facility] Hemoglobin A1c 5.8 5-7 finding Urinalysis 05/22/2009 [facility] Ua Color RED Yellow W/Microscopic [address] [place] [address] [phone] Appearance-Urine TURBID Clear Specific Mildred-Ur 1.007 Low 1.010-1.030 Esterase-Urine 3+ Abnormal Negative Nitrite POSITIVE Abnormal Negative Ahvessptsvyo-Tj-INF NEGATIVE Negative Protein-Urine 3+ Abnormal Negative PH-Urine 6.0 5-9 Blood-Urine 3+ Abnormal Negative Ketones-Urine 1+ Abnormal Negative Bilirubin-Ur SEE ICTOTEST Abnormal Negative Glucose-Urine NEGATIVE Negative WBC-Urine TNTC Abnormal 0-5 RBC-Urine 3-5 0-2 Mucus Urine SMALL None Epith Cells-Ur FEW None Bacteria-Urine 3+ None Laboratory test 05/22/2009 [facility] Ictotest-Urine NEGATIVE [address] [place] [address] [phone] Urine Culture & 05/22/2009 [facility] Urine Culture SN1 [address] [place] [address] [phone] MRSA/Vre Screen 05/02/2009 [facility] MRSA/Vre Culture NFICU [address] [place] [address] [phone] Laboratory test 05/01/2009 [facility] Troponin-I (TnI) 0.04 NG/ ML [address] [place] [address] [phone] CMP Panel Stat 05/01/2009 [facility] Sodium 138 mmol/L 135-[address] 45 [place] [address] [phone] Potassium 3.9 mmol/L 3.5-5.0 Chloride 101 mmol/L 101-111 Co2 (Carbon Dioxide) 29.0 mmol/L 22-32 Anion Gap 8.0 mmol/L 2-11 51 Glucose 102 mg/dL High 70-100 52 BUN 21 mg/dL 6-24 Creatinine 1.20 mg/dL 0.50-1.40 One Over Creatinine 0.80 BUN/Creatinine Ratio 17.5 8-20 Calcium 9.4 mg/dL 8.1-9.9 53 Total Protein 7.6 GM/DL 6.2-8.1 Albumin 3.8 GM/DL 3.2-5.2 Globulin 3.8 GM/DL 2-4 Albumin/Globulin Ratio 1.0 1-3 Bilirubin Total 0.6 mg/dL 0.4-1.5 54 Alkaline Phosphatase 86 U/L 30-110 Alt (SGPT) 11 U/L Low 14-54 Ast (Sgot) 21 U/L 12-42 eGFR Non- 47.1 > 60 eGFR 57.0 > 60 55 CBC With Manual 05/01/2009 [facility] White Blood 9.0 CUMM 4.8-10.[address] [place] [address] [phone] Red Cell Count 4.47 CUMM 4.2-5.4 Hemoglobin [...] 0-6 Absolute Neutrophil Count 5.9 Anisocytosis SLIGHT Laboratory test finding 04/29/2009 [facility] Lipase 25 U/L 22-[address] [place], [place] [address] [phone] Protime Stat 04/29/2009 [facility] Inr 0.97 0.97-1.[address] [place] [address] [phone] Protime 11.4 SEC Low 11.5-12.2 57 PTT (Aptt) 04/29/2009 [facility] PTT (Aptt) 32.5 25.15-38.[address] [place], [place] [address] [phone] Laboratory 04/29/2009 [facility] D Dimer < 200 Less Than 230 test finding [address] [place] [address] [phone] BNP Evaluatr 37.0 pg/mL 0-100 CBC With 04/29/2009 [facility] White Blood 8.2 CUMM 4.8-10.8 Electronic Diff [address] [place] [address] [phone] Red Cell Count 4.76 CUMM 4.2-5.4 Hemoglobin [...] 0 0-0.2 59 Comp Metabolic Panel 04/29/2009 [facility] Sodium 137 mmol/L 135-145 [address] [place] [address] [phone] Potassium 3.2 mmol/L Low 3.5-5.0 Chloride 98 [...] > 60 eGFR 61.0 > 60 64 Laboratory test 04/29/2009 [facility] Troponin-I (TnI) 0.02 NG/ ML 65 finding [address] [place] [address] [phone] Amylase Stat 04/29/2009 [facility] Amylase 52 U/L 30-125 [address] [place] [address] [phone] Magnesium Stat 04/29/2009 [facility] Magnesium 2.1 mg/dL 1.7- 2. [address] [place] [address] [phone] Surgical 01/22/2009 [facility] Surgical 66 Pathology [address] [facility] Pathology ----- <[place] [address] NOTE> [phone] CBC With 01/04/2009 [facility] White Blood 9.2 CUMM 4.8-10 Electronic Diff [address] Count .8 [place] [address] [phone] Red Cell Count 4.44 CUMM 4.2-5.4 Hemoglobin [...] Basophils 0 0-0.2 CMP Panel Stat 01/04/2009 [facility] Sodium 136 mmol/L 135- [address] [place] [address] [phone] Potassium 3.7 mmol/L 3.5-5.0 Chloride 97 mmol/L [...] 47.7 > 60 71 Magnesium Stat 01/04/2009 [facility] Magnesium 2.3 mg/dL 1.7- 2.[address] [place] [address] [phone] Laboratory test 01/04/2009 [facility] Troponin-I 0.02 NG/ML [address] (TnI) [place] [address] [phone] Protime Stat 01/04/2009 [facility] Inr 0.99 0.86-1.[address] [place] [address] [phone] Protime 12.1 SEC 10.7-13.6 74 PTT (Aptt) 01/04/2009 [facility] PTT (Aptt) 28.2 25.15-38.[address] [place] [address] [phone] CBC With 01/01/2009 [facility] White Blood 15.4 CUMM High 4.8- 10.8 Manual Diff [address] [place] [address] [phone] Red Cell Count 4.71 CUMM 4.2-5.4 Hemoglobin [...] RBC Morphology NORMAL Comp Metabolic Panel 01/01/2009 [facility] Sodium 139 mmol/L 135-[address] [place] [address] [phone] Potassium 4.0 mmol/L 3.5-5.0 Chloride 102 mmol/L [...] 57.0 > 60 80 Lipid Profile 01/01/2009 [facility] Triglyceride 64 mg/dL 40- 200 (Trig/Chol/HDL) [address] [place] [address] [phone] Cholesterol 174 mg/dL Less Than 200 81 High Density Lipoprotein 70 mg/dL High 40-60 82 Cholesterol/HDL Ratio 2.49 AVERAGE 1-4.44 Low Density Lipoprotein 91 mg/dL Less Than 100 83 Urine Microalbumin 01/01/2009 [facility] Microalbumin 40.0 mg/L Random [address] (MG/L) [place] [address] [phone] Urine Creatinine 138.18 mg/dL Fortunato Alb/Creatinine Ratio 28.9 UG/MG Less Than 30 84 Laboratory test 01/01/2009 [facility] Hemoglobin A1c 6.4 % High Less Than [address] [place] [address] [phone] Comment: pt from detention Verbal to [id number] by [id number] at 0204 on . Results read 2 SEE RESULT BELOW Name: DEION PERDOMO : [address]: Stephen Calixto MD Acct: [id number] Unit: [id number] AGE: 82 Location: [place] [address] Re03/12/18 SEX: F Status: REG SDC SPEC: [id number] HELLEN: 03/13/[address]: Stephen Calixto MD REQ: [id number] RECD: 03/13/18 STATUS: WILL GREWAL DR: Lynn Robert [facility] _ SOURCE: NASAL SPDESC: ORDERED: MRSA PCR-Nasal COMMENTS: Comment: pt from detention Verbal to [id number] by [email or web address] at 0204 on 03/13/18. Results read back accurately. Procedure Result Reported Site MRSA PCR (Nasal) Final 03/13/18- 0204 ML Organism 1 MRSA NOT DETECTED * ML - Main Lab . END OF REPORT DEPARTMENT OF PATHOLOGY, [address] [place] [address] Chase Moore M.D. Director [facility] # [id number] 3 Virtualization Architect: [id number] Virtualization Architect: [id number] 5 Virtualization Architect: [id number] 6 AA 03/12 7 Because ethnic data is not [...] D level. May have Prolia injection. 10 PRN VALID 12/08/15-06/06/16 CC: DR. PALAFOX, DR. HARTLEY, DR. SILVA 11 Because ethnic data is not always [...] 5 Kidney failure <15 (or dialysis) 12 ADDITIONAL INFORMATION This test was developed and its performance characteristics determined by [facility] in a manner consistent with CLIA requirements. This test has not been cleared or approved by the U.S. Food and Drug Administration. Test Performed by: [facility] [place] [address] Soft Sugar Supervisor: Yayo Harding II, M.D., Ph.D. 13 standing order 14 Because ethnic data [...] <15 (or dialysis) 15 Test Performed by: [place] [address] Soft Sugar Supervisor: Yayo Harding II, M.D., Ph.D. 16 Because [...] Acute inflammation: >10.00 19 RUN DATE: 03/11/14 [facility] LAB LIVE PAGE 1 RUN TIME: 1108 [address] [facility], [place], [place] [address] Specimen Inquiry Name: DEION PERDOMO : [address]: Anam Barroso MD Acct: [id number] Unit: [id number] AGE: 78 Location: LAB Re03/09/14 SEX: F Status: REG REF SPEC: [id number] HELLEN: 03/09/14-1045 [facility] DR: Anam Barroso MD PC REQ: [id number] RECD: 03/09/14-1341 STATUS: WILL GREWAL DR: Norbert Kidd MD _ SOURCE: URINE SPDESC: ORDERED: Urine Culture QUERIES: Medent Number [id number] Procedure Result Verified Site Urine Culture Final 03/11/14- 1108 ML Organism 1 NORMAL RONAL [place] Count >100,000 (Many) CFU/ML END OF REPORT * ML=Testing performed at Main Lab DEPARTMENT OF PATHOLOGY, [address] [place] [address] Chase Moore M.D. 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 21 REFERENCE VALUE 25-HYDROXY D TOTAL (D2+D3) Optimum levels in the healthy population are 20-50, patients with bone disease may benefit from higher levels within this range. Test Performed by: [place] [address] Soft Sugar Supervisor: Saran Lomax M.D. 22 [id number] [facility] 09/22/10 1356 23 ANY BLOOD NOT GIVEN [...] 3 DAYS OF THE SURGERY DATE. 30 [id number] OP PC TRANSFUSED 09/20/10 1136 31 [id number] OP PC TRANSFUSED 09/20/10 1136 32 Anion [...] change was based on recommendations from the [place] [employer]. 42 Please note change in reference range effective 07 . 43 A metabolite of Naproxen, O-desmethylnaproxen, has been shown to interfere with the [place] method for measuring total bilirubin. Samples from [...] PERINEAL RONAL 49 NO MRSA ISOLATED 50 New Reference Range and Interpretation effective 12/27/2001 TnI (ng/ml) INTERPRETATION Less Than 0.06 ng/mL NOT SUPPORTIVE OF DIAGNOSIS OF [place] 0.06 - 0.50 ng/ml INDETERMINATE: SUGGEST SERIAL STUDIES IF CLINICALLY INDICATED. Greater than 0.5 ng/mL CONSISTENT WITH DIAGNOSIS OF [place] . 51 Anion gap measurement may be of limited value in the presence of any alkalosis, especially in a combined acid base disorder. . 52 Note change in reference range as of 11/14/07. The change was based on recommendations from the [place] [employer]. 53 Please note change in reference range effective 07 . 54 A metabolite of Naproxen, O-desmethylnaproxen, has been shown to interfere with the [place] method for measuring total bilirubin. Samples from patients who have taken Naproxen have shown spurious elevation in total bilirubin levels. 55 Because ethnic data is not always readily [...] 15-29 5 Kidney failure <15 (or dialysis) 56 Recommended INR for Patients on Oral Anticoagulants Prophylaxis 2.0 - 3.0 Treatment of thrombosis 2.0 - 3.0 Prevention of embolism 2.0 - 3.0 Prevention of embolism from prosthetic heart valves 2.5 - 3.5 57 DIAGNOSIS,TREATMENT,AND THERAPY MUST BE BASED ON THE INR VALUE ALONE. 58 PLEASE NOTE NEW REFERENCE RANGE EFFECTIVE 08. 59 NR 60 Anion gap measurement may be of limited value in the presence of any alkalosis, especially in a combined acid base disorder. . 61 Note change in reference range as of 11/14/07. The change was based on recommendations from the [place] [employer]. 62 Please note change in reference range effective 07 . 63 A metabolite of Naproxen, O-desmethylnaproxen, has been shown to interfere with the [place]rass[place] method for measuring total bilirubin. Samples from [...] 0.06 ng/mL NOT SUPPORTIVE OF DIAGNOSIS OF RI 0.06 - 0.50 ng/ml INDETERMINATE: SUGGEST SERIAL STUDIES IF CLINICALLY INDICATED. Greater than 0.5 ng/mL CONSISTENT WITH DIAGNOSIS OF RI . 66 ---- RUN DATE: 01/25/09 [facility] NMI LIVE PAGE 1 RUN TIME: 1346 Specimen Inquiry RUN USER: INTERFACE -- Name: CONOR KIMDEION Valenzuela Status: REG REF Re01/22/09 Age/Sex: 73/F Unit#: [id number] Location: [facility] : 37 -- Specimen: [id number] SOUT Spec Date: 01/22/[address]: Pilo ferreira MD Spec Type: SURGICAL P Received: 01/22/09-2578 Copies to: Anam garcia MD SPECIMEN BIOPSY RIGHT COLON POLYP HISTORY POST-OP DIAGNOSIS: Small polyp removed CLINICAL INFORMATION: Rectal bleeding, history of polyp, removed 2006 GROSS DESCRIPTION Specimen received in formalin labelled Deion Conor Kim, Right Colon Polyp and consists of several fragments of thomson-brown tissue measuring in aggregate 1.0 x 1.0 x 0.4 cm. Submitted entirely, one cassette. DIAGNOSIS Colon, right, biopsy: A. Tubular adenoma. B. No high grade dysplasia or malignancy. Signed Electronically by: CHASE MOORE MD 01/25/09 1344 -- -- DEPARTMENT OF PATHOLOGY, [address] [place] [address] [facility] Permit #[id number] Chase Moore M.D. Director Raj Acevedo M.D. [employer] Member Dir ruiz -- 67 Anion gap measurement may be of limited value in the presence of any alkalosis, especially in a combined acid base disorder. . 68 Note change in reference range as of 11/14/07. The change was based on recommendations from the [place] [employer]. 69 Please note change in reference range effective 07 . 70 A metabolite of Naproxen, O-desmethylnaproxen, has been shown to interfere with the [place]rass[place] method for measuring total bilirubin. Samples from [...] 0.06 ng/mL NOT SUPPORTIVE OF DIAGNOSIS OF RI 0.06 - 0.50 ng/ml INDETERMINATE: SUGGEST SERIAL STUDIES IF CLINICALLY INDICATED. Greater than 0.5 ng/mL CONSISTENT WITH DIAGNOSIS OF [place] . 73 Recommended INR for Patients on [...] change was based on recommendations from the [place] [employer]. 78 Please note change in [...] IN SELECTIVE PATIENTS <6.0%. PLEASE REFER TO CITIZEN OF [place] [employer] DIABETIC CARE GUIDELINES FOR FURTHER INFORMATION. Procedures Date Code Description Status 03/27/201826193 Inject/Drain Joint/Bursa Major W/O US Completed 03/12/2018 94723 Valdez/Facet/Foraminotomy;Vertical Segement; Thoracic Completed 03/12/2018 49656 Valdez/Facet/Foraminotomy;Vertical Segement; Thoracic Completed 03/05/2018 62505 EKG, Interpretation Only Completed 01/16/2018 69740 EKG Tracing & Interpretation Completed 12/26/2017 38344 Inject/Drain Joint/Bursa Major W/O US Completed 12/10/2017 37990 Admin Of Inj Completed 10/22/2017 347281625 Bone Mineral Density Test Completed 08/16/2017 15217 Inject/Drain Joint/Bursa Major W/O US Completed 06/04/201782289 Inject/Drain Joint/Bursa Major W/O US Completed 06/04/2017 04537 Injection Single Tendon Origin/Insertion Completed 04/13/2017 86677 Admin Of Inj Completed 01/17/2017 20603 EKG Tracing & Interpretation Completed 10/25/2016 60702 Polysomnography Sleep Staging 4+ Parameters W/Cpap Completed 09/12/2016 32728 Admin Of Inj Completed 09/06/2016 16961 Polysomnography Sleep Staging 4+ Parameters Completed 06/14/2016 66426 EKG Tracing & Interpretation Completed 05/03/2016 73021 Inject/Drain Joint/Bursa Major W/O US Completed 05/03/2016 24886 Inject/Drain Joint/Bursa Intermediate W/O US Completed 04/10/2016 61510 Admin Of Inj Completed 04/10/2016 85626 Chemotherpy Admin Subcutaneous/Im Non-Hormonal Completed Anti-Neoplastic 09/10/2015 512946622 Bone Mineral Density Test Completed 09/07/2015 36200 Chemotherpy Admin Subcutaneous/Im Non-Hormonal Completed Anti-Neoplastic 07/29/2015 13245 Stress Test Completed 07/29/2015 43471 Myocardial Perfusion Imaging Tomographic (Spect) Completed Multiple Studies 07/16/2015 25454 EKG Tracing & Interpretation Completed 02/15/2015 02141 Chemotherpy Admin Subcutaneous/Im Non-Hormonal Completed Anti-Neoplastic 12/22/2014 17094 Trigger Finger Release Incision / Tendon Sheath Completed Incision 12/22/2014 69368 Trigger Finger Release Incision / Tendon Sheath Completed Incision 12/11/2014 16846 EKG Tracing & Interpretation Completed 08/13/2014 72246 Admin Of Inj Completed 07/06/2014 15907 Treadmill Interp/Report Only Completed 07/06/2014 94999 Stress Test Supervsn W/Out I/R Completed 07/02/2014 58137 ECHO Transthorasic Realtime 2D W Doppler & Color Flow Completed Hosp 07/02/2014 26367 EKG, Interpretation Only Completed 07/01/2014 79908 EKG, Interpretation Only Completed 07/01/2014 17508 EKG, Interpretation Only Completed 06/15/2014 30751 Inject Tendon Sheath Or Ligament Aponeurosis Eg Completed Plantar Fascia 04/09/2014 41567 Inject/Drain Joint/Bursa Major W/O US Completed 01/28/2014 87216 Admin Of Inj Completed 12/29/2013 848893581 Bone Mineral Density Test Completed 12/29/2013 40215967 Mammogram Completed 12/04/201377385 Inject Tendon Sheath Or Ligament Aponeurosis Eg Completed Plantar Fascia 11/13/201316320 Inject/Drain Joint/Bursa Major W/O US Completed 05/27/2013 27243 EKG Tracing & Interpretation Completed 05/08/2013 68790 Stress Test Completed 05/08/2013 51449 Myocardial Perfusion Imaging Tomographic (Spect) Completed Multiple Studies 05/06/201357848 Inject/Drain Joint/Bursa Major W/O US Completed 05/01/2013 98895 ECHO Transthoracic, Real-Time 2D With Doppler And Completed Color Flow 04/29/2013 84215 EKG Tracing & Interpretation Completed 11/28/2012 83770 Inject Tendon Sheath Or Ligament Aponeurosis Eg Completed Plantar Fascia 11/28/201275847 Inject/Drain Joint/Bursa Major W/O US Completed 11/15/2012 79979 EKG Tracing & Interpretation Completed 06/21/2012 51614 Rad Exam; Hip Unilat Completed 06/21/2012 16017 Rad Exam; Hip Unilat Completed 06/21/2012 60756 Rad Exam; Pelvis Completed 06/21/2012 41347 Rad Exam; Pelvis Completed 04/01/201279398 Inject/Drain Joint/Bursa Intermediate W/O US Completed 09/20/2011 37003 Rad Shoulder Comp, Min. 2 Views Completed 09/20/201107516 Inject/Drain Joint/Bursa Major W/O US Completed 06/02/2011 72413 Rad Exam; Knee, Ap&L Completed 06/02/2011 24520 Xray Knee 3 Views Completed 11/14/2010 73481 Rad Exam; Knee, Ap&L Completed 11/14/2010 36111 Rad Exam; Both Knees, Standing Ap Completed 10/03/2010 11045 Rad Exam; Toes Completed 10/03/2010 01466 Rad Exam; Both Knees, Standing Ap Completed 10/03/2010 60583 Rad Exam; Knee, Ap&L Completed 09/20/2010 43069 Revision TKA W Or W/O Allograft;Femoral & Entire Completed Tibial Component 09/20/2010 88359 Revision TKA W Or W/O Allograft;Femoral & Entire Completed Tibial Component 09/07/2010 00526 Xray Knee 3 Views Completed 09/07/2010 Inject/Drain Joint/Bursa Major W/O US Completed 02/23/2010 Inject/Drain Joint/Bursa Major W/O US Completed 02/16/2010 66203 Xray Knee 3 Views Completed 02/16/2010 48083 Rad Exam; Knee, Ap&L Completed 01/22/2009 56918646 Colonoscopy Completed Encounters Type Date Location Provider Dx Diagnosis Office Visit 05/09/2018 Orthopedic Services Krystle Crissotomo, 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, lumbar region G62.9 Polyneuropathy, unspecified Office Visit 01/22/2018 10:03a Neurosurgery Patience Davila M48.04 Spinal stenosis, Services Of [employer] PA-C thoracic region R53.1 Weakness W19.xxxA Unspecified fall, initial encounter Office Visit 01/22/2018 8:36a [facility] Rachel Medellin, R53.1 Weakness 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, 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 I10 Essential (primary) hypertension E11.9 Type 2 diabetes mellitus without complications I25.10 Athscl heart disease of [place] coronary artery w/o ang pctrs D64.9 Anemia, unspecified M25.512 Pain in left shoulder M48.05 Spinal stenosis, thoracolumbar region Office Visit 01/21/2018 Neurohospitalist Lenora Mccarty, 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 disease of [place] coronary artery w/o ang pctrs R94.31 Abnormal electrocardiogram [ECG] [EKG] Office Visit 10/15/2017 Rheumatology Kimberlyofia M81.0 Age-related 1:30p Services Of RAY Toro osteoporosis w/o [facility] current pathological fracture Office Visit 07/13/2017 [facility] Carson Anderson I25.10 Athscl heart 10:30a Of Flash Hartley M.D. 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 Office Visit 05/21/2017 11:39a [facility] Assoc, Herman Burrell MD K92.1 [facility] Hospitalists E11.59 Type 2 diabetes mellitus with oth circulatory complications 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 E11.59 Type 2 diabetes mellitus with oth circulatory complications K57.31 Dvrtclos of lg int w/o perforation or abscess w bleeding I25.10 Athscl heart disease of [place] coronary artery w/o ang pctrs Office Visit 04/23/2017 Orthopedic Debra M77.01 Medial 10:00a Services Of TAMELA Brown-C epicondylitis, right C.M.A. 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 N18.9 Chronic kidney disease, unspecified I12.9 Hypertensive chronic kidney disease w stg 1-4/unsp chr kdny Office Visit 11/21/2016 Pulmonology And Melony G47.33 Obstructive sleep 10:45a Sleep Services Of COLLEEN Noriega RN, apnea (adult) [facility] PRODUCTION TRAINER- (pediatric) G47.14 Hypersomnia due to medical condition Office Visit 09/29/2016 Pulmonology And Melony G47.33 Obstructive sleep 10:00a Sleep Services Of COLLEEN Noriega RN, apnea (adult) [facility] PRODUCTION TRAINER- (pediatric) G89.29 Other chronic pain G47.14 Hypersomnia due to medical condition F40.240 Claustrophobia E66.09 Other obesity due to excess calories Z68.36 Body mass index (BMI) 36.0-36.9, adult Office Visit 09/12/2016 10:00a Rheumatology Kimberlyofia M81.0 Age-related Services Of [facility] RAY Toro osteoporosis w/o current pathological fracture Z92.29 Personal history of other drug therapy M54.5 Low back pain Office Visit 08/16/2016 2:40p Rheumatology Nadine Toro, M79.604 Pain in Services Of [facility] PRODUCTION TRAINER right leg M81.0 Age-related osteoporosis w/o current pathological fracture M54.42 Lumbago with sciatica, left side Office Visit 08/08/2016 8:45a Pulmonology And Kim R06.81 Apnea, not Sleep Services Of MD Henri elsewhere [facility] classified R06.83 Snoring R40.0 Somnolence R51 Headache G47.8 Other sleep disorders R12 Heartburn E66.09 Other obesity due to excess calories Z68.37 Body mass index (BMI) 37.0-37.9, adult Office Visit 07/21/2016 11:00a [facility] BLACK Arevalo I25.10 Athscl heart Of [facility] disease of [place] coronary artery w/o ang pctrs N18.9 Chronic kidney disease, unspecified I12.9 Hypertensive chronic kidney disease w stg 1-4/unsp chr kdny Office Visit 06/14/2016 9:00a [facility] Xiomy Wilson R07.9 Chest pain, Of [facility] PA unspecified I25.10 Athscl heart disease of [place] coronary artery w/o ang pctrs N18.9 [...] Toro, R21 Rash and other Services Of PRODUCTION TRAINER nonspecific skin [facility] eruption M81.0 Age-related osteoporosis w/o current pathological fracture E55.9 Vitamin D deficiency, unspecified Z79.899 Other intermediate (current) drug therapy Office Visit 12/08/2015 11:00a Rheumatology Zsofia M81.0 Age-related Services Of Flash Armandok, PRODUCTION TRAINER osteoporosis w/o current pathological fracture E55.9 Vitamin D deficiency, unspecified N18.3 Chronic kidney disease, stage 3 (moderate) Z79.899 Other intermediate (current) drug therapy Office Visit 09/07/2015 11:30a Rheumatology Zsofia M81.0 Age-related Services Of Flash Armandok, PRODUCTION TRAINER osteoporosis w/o current pathological fracture K21.9 Gastro-esophageal reflux disease without esophagitis N18.3 Chronic kidney disease, stage 3 (moderate) E55.9 Vitamin D deficiency, unspecified Z92.29 Personal history of other drug therapy Office Visit 08/20/2015 9:30a [facility] Carson Anderson 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 disease of [place] coronary artery w/o ang pctrs I10 Essential (primary) hypertension R07.9 Chest pain, unspecified Office Visit 05/03/2015 11:00a Orthopedic Virgil Spence, S53.401D Unspecified Services Of [place] sprain of right C.M.A. elbow, subsequent encounter [...] osteoporosis w/o current pathological fracture Z79.899 Other moth exterminator (current) drug therapy M79.7 Fibromyalgia Office Visit 02/12/2015 11:00a [facility] Carson Anderson I10 Essential (primary) Of Flash Hartley M.D. hypertension I25.10 Athscl heart disease of [place] coronary artery w/o ang pctrs Office Visit 01/15/2015 [facility] K92.2 Gastrointestinal 10:32a Associmmanuel, FABI hemorrhage, Hospitalists unspecified E13.9 Other specified diabetes mellitus without complications I10 Essential (primary) hypertension Office Visit 01/14/2015 [facility] K92.2 Gastrointestinal 10:30a Associmmanuel NP hemorrhage, Hospitalists unspecified E13.9 Other specified diabetes mellitus without complications I10 Essential (primary) hypertension Office Visit 12/11/2014 3:30p [facility] BLACK Arevalo 727.03 Trigger Finger Of [facility] Acquired 401.9 Hypertension Unspec 414.00 Coronary Atherosclerosis Unspec Type Vessel Hughes/Graft 715.09 Osteoarthrosis Generalized Multiple Sites V72.81 Examination Preoperative Cardiovascular Office Visit 12/09/2014 1:30p Orthopedic Services Of Lore Higginbotham, 724.2 Adin Hansen RPA-C 727.03 Trigger Finger Acquired Office Visit 10/26/2014 1:22p [facility] 584.9 Acute Kidney Assimmanuel clark M.D. Failure, Hospitalists Unspecified 786.05 Shortness Of Breath 276.8 Hypopotassemia 401.9 Hypertension Unspec [facility] Visit [facility] 584.9 Acute Kidney 1:21p immanuel Phan II, M.D. Failure, Hospitalists Unspecified 786.05 Shortness Of Breath 276.8 Hypopotassemia 401.9 Hypertension Unspec Office Visit 10/16/2014 [facility] 562.12 Diverticulosis 11:43a immanuel Phan M.D. Colon W/ Hemorrhage Hospitalists 401.9 Hypertension Unspec Office Visit 10/15/2014 [facility] 562.12 Diverticulosis 11:43a immanuel Phan M.D. Colon W/ Hemorrhage Hospitalists 414.00 Coronary Atherosclerosis Unspec Type Vessel Hughes/Graft 401.9 Hypertension Unspec Office Visit 10/14/2014 [facility] 562.12 Diverticulosis 11:42a immanuel Phan M.D. Colon W/ Hemorrhage Hospitalists 414.00 Coronary Atherosclerosis Unspec Type Vessel Hughes/Graft 401.9 Hypertension Unspec Office Visit 10/13/2014 [facility] 562.12 Diverticulosis 11:41a immanuel Phan M.D. Colon W/ Hemorrhage Hospitalists 414.00 Coronary Atherosclerosis Unspec Type Vessel Hughes/Graft 401.9 Hypertension Unspec Office Visit 10/12/2014 [facility] 562.12 Diverticulosis 11:41a immanuel Phan M.D. Colon W/ Hemorrhage Hospitalists 414.00 Coronary Atherosclerosis Unspec Type Vessel Hughes/Graft 401.9 Hypertension Unspec Office Visit 10/11/2014 [facility] 562.12 Diverticulosis 11:40a immanuel Phan M.D. Colon W/ Hemorrhage Hospitalists 414.00 Coronary Atherosclerosis Unspec Type Vessel Hughes/Graft 401.9 Hypertension Unspec Office Visit 08/13/2014 Rheumatology Phillip Sheffield, 733.01 Osteoporosis 10:20a Services Of Flash Scott Senile 724.00 Spinal Stenosis Unspec Region 338.4 Chronic Pain Syndrome 715.09 Osteoarthrosis Generalized Multiple Sites Office Visit 07/06/2014 [facility] 578.9 Hemorrhage 12:48p immanuel Phan M.D. Gastrointestinal Hospitalists Tract Unspec 530.81 Esophageal Reflux 285.1 Anemia Posthemorrhagic Acute 276.8 Hypopotassemia Office Visit 07/05/2014 2:08p [facility] Efraínyboumar S. 414.9 Ischemic Heart Tyler Gordon Disease Chronic Unspec 794.31 Electrocardiogram (ECG) (EKG) Abnormal 401.1 Hypertension Benign V45.82 Percutaneous Transluminal Coronary Angioplas Postsurg Status Office Visit 07/05/2014 [facility] 578.9 Hemorrhage 12:45p immanuel Phan M.D. Gastrointestinal Hospitalists Tract Unspec 276.8 Hypopotassemia 285.1 Anemia Posthemorrhagic Acute Office Visit 07/04/2014 [facility] 578.9 Hemorrhage 12:45p immanuel Phan M.D. Gastrointestinal Hospitalists Tract Unspec 530.81 Esophageal Reflux 285.1 Anemia Posthemorrhagic Acute 276.8 Hypopotassemia Office Visit 07/03/2014 [facility] 578.9 Hemorrhage 12:44p immanuel Phan M.D. 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 Of Flash Danielle M.D., Obstructive FACC, FASNC Cardiomyopathy Office Visit 07/02/2014 [facility] Lucia 578.9 Hemorrhage 12:42p immanuel Phan DO Gastrointestinal Hospitalists Tract Unspec 530.81 Esophageal Reflux 786.50 Pain Chest Unspec 285.1 Anemia Posthemorrhagic Acute Office Visit 07/02/2014 10:33a [facility] Jacquelyn Reddysher, 780.2 Syncope & Of Flash Scott Collapse 414.9 Ischemic Heart Disease Chronic Unspec Office Visit 07/01/2014 [facility] Lucia 578.9 Hemorrhage 12:42p immanuel Phan DO Gastrointestinal Hospitalists Tract Unspec 584.9 Acute Kidney Failure, Unspecified 530.81 Esophageal Reflux 285.1 Anemia Posthemorrhagic Acute Office Visit 06/30/2014 [facility] Naeem Reid, 578.9 Hemorrhage 12:41p immanuel Phan M.D. Gastrointestinal Hospitalists Tract Unspec [...] Replacement By Other Means Office Visit 05/27/2014 V[facility] Anderson 414.01 Coronary 10:30a Cardiology Of Tyler Hartley Atherosclerosis Flash Hughes 401.9 Hypertension Unspec Office Visit 04/23/2014 Rheumatology Phillip Sheffield, 733.00 Osteoporosis 10:40a Services Of Flash Scott Unspec 724.00 Spinal Stenosis Unspec Region 729.1 Myalgia & Myositis Unspec 715.09 Osteoarthrosis Generalized Multiple Sites Office Visit 04/16/2014 Rheumatology oNrbert Kidd, 733.00 Osteoporosis 10:20a Services Of Flash [...] Stage III Moderate Office Visit 12/11/2013 1:45p [facility] Carson Anderson 786.50 Pain Chest Of Flash Hartley M.D. Unspec 401.9 Hypertension Unspec 414.01 Coronary Atherosclerosis Hughes Office Visit 12/04/2013 Orthopedic Krystle 727.03 Trigger Finger 11:15a Services Of Tyler Crisostomo C.M.AEladio Office Visit 12/01/2013 Rheumatology Norbert Kidd 715.09 Osteoarthrosis 9:00a Services Of Flash Scott [...] Not Elsewhere Class Office Visit 05/27/2013 1:45p [facility] Carson Anderson 786.50 Pain Chest Of [employer] AT [facility] Tyler Hartley Unspec 401.9 Hypertension Unspec 786.05 Shortness Of Breath Office Visit 05/12/2013 10:26a [facility] 786.51 Pain Precordial Assoc,pc Jaskaran D.O. Hospitalists 785.1 Palpitations 278.01 Obesity Morbid Office Visit 05/11/2013 10:26a [facility] [place] 786.51 Pain Precordial Assoc,pc Jaskaran D.O. Hospitalists 785.1 Palpitations 278.01 Obesity Morbid Office Visit 05/06/2013 11:15a Orthopedic Lula Ferrari 718.81 Derangement Joint Services Of RPA-C Other Not C.M.A. Elsewhere Class Shoulder 726.10 Bursae & Tendon Disorders Shoulder Region Unspec 726.2 Shoulder Region Affections Other Not Elsewhere Class Office Visit 04/29/2013 1:15p [facility] Carson Anderson 786.50 Pain Chest [facility] AT [facility] Tyler Hartley Unspec 786.05 Shortness Of Breath 414.01 Coronary Atherosclerosis Hughes 401.9 Hypertension Unspec Office Visit 11/28/2012 11:15a Orthopedic Krystle Crisostomo 727.82 Calcium Services Of Tyler Deposits Tendon C.M.A. & Bursa 727.03 Trigger Finger Acquired 726.2 Shoulder Region Affections Other Not Elsewhere Class Office Visit 11/15/2012 10:15a [facility] Carson Anderson 414.9 Ischemic Heart [facility] Tyler Hartley Disease Chronic Unspec 401.9 Hypertension Unspec Office Visit 07/16/2012 11:45a Orthopedic Services Billy Young, 719.45 Pain Joint Of C.M.A. Tyler Pelvic Region & Thigh 729.2 Neuralgia Neuritis & Radiculitis Unspec Office Visit 06/21/2012 10:15a Orthopedic Services Lula Ferrari 719.45 Pain Joint Of C.M.A. RPA-C Pelvic Region & Thigh 729.2 Neuralgia Neuritis & Radiculitis Unspec 719.45 Pain Joint Pelvic Region & Thigh Office Visit 04/01/2012 Orthopedic Virgil Spence 727.82 Calcium Deposits 3:15p Services Of C.M.A. Tyler Tendon & Bursa Office Visit 02/14/2012 Orthopedic Lula Ferrari 726.31 Epicondylitis 10:15a Services Of C.M.A. RPA-C Medial Office Visit 01/26/2012 [facility] Renita 786.51 Pain Precordial 12:43p Assoc,immanuel De Jesus M.D. Hospitalists 414.01 Coronary Atherosclerosis Hughes 401.9 Hypertension Unspec Office Visit 01/25/2012 12:43p [facility] Naeem Reid 786.51 Pain Precordial Assoc,immanuel Scott Hospitalists 414.01 Coronary Atherosclerosis Hughes 401.9 Hypertension Unspec 272.2 Hyperlipidemia Mixed Office Visit 11/20/2011 2:30p Orthopedic Lula 726.31 Epicondylitis Medial Services Of Vonda RPA-C C.M.A. Office Visit 09/20/2011 8:15a Orthopedic Virgil Spence, 726.11 Tendinitis Services Of Tyler Calcifying Shoulder C.M.A. Office Visit 06/02/2011 3:45p Rafal Spence, 715.96 Osteoarthrosis Services Of Tyler Unspec Genlzd Or C.M.A. Localized Lower Leg Office Visit 09/07/2010 2:45p Rafal Spence 719.06 Effusion Joint Lower Services Of Tyler Leg C.M.A. 996.41 Mechanical Loosening Of Prosthetic Joint Office Visit 02/23/2010 2:30p Rafal Spence, 996.41 Mechanical Services Of Tyler Loosening Of C.M.A. Prosthetic Joint Office Visit 02/16/2010 9:00a Orthopedic Dirk Jordy, 996.41 Mechanical Services Of M.D. Loosening Of C.M.A. Prosthetic Joint 719.46 Pain Joint Lower Leg Office Visit 11/01/2009 DO Not Use [employer] Jamisonananda, 272.4 Hyperlipidemia Other 10:00a AT Sybil Sol MD Unspec 414.01 Coronary Atherosclerosis Hughes Office Visit 10/14/2009 10:00a DO Not Use [employer] Jamisonananda, 530.81 Esophageal AT Sybil Sol MD Reflux 599.0 UTI Urinary Tract Infection Site Not Spec 272.4 Hyperlipidemia Other Unspec Office Visit 07/09/2009 1:20p DO Not Use [employer] Chio, 112.1 Candidiasis The AT Sybil Mendieta M.D. 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 307.42 Sleep Disorder Persistent Initiating Or Maintaining Sleep 272.4 Hyperlipidemia Other Unspec 278.00 Obesity Unspec 401.9 Hypertension Unspec 716.86 Arthropathy Other Spec Lower Leg 530.81 Esophageal Reflux 840.4 Sprains & Strains Rotator Cuff (Capsule) 414.01 Coronary Atherosclerosis Hughes 412 Myocardial Infarction Old 300.00 Anxiety State Unspec 565.0 Anal Fissure Office Visit 05/02/2009 12:15a [facility] Randal Lerma, 786.50 Pain Chest Assoc,immanuel Scott Unspec Hospitalists Office Visit 04/30/2009 2:30a [facility] Renita 786.50 Pain Chest Assoc,immanuel De Jesus M.D. Unspec Hospitalists 401.9 Hypertension Unspec Office Visit 04/29/2009 2:15a [facility] Renita 786.50 Pain Chest Unspec Assoc,immanuel De Jesus M.D. Hospitalists Office Visit 04/19/2009 3:00p Neurosurgery Rob Johnson 721.0 Spondylosis Services Of Flash Salguero M.D. Cervical W/O Myelopathy Office Visit 03/22/2009 9:40a DO Not Use [employer] AT Chio, 307.42 Sleep Disorder Sybil Mendieta M.D. 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 Cervical W/O Myelopathy Office Visit 01/08/2009 11:00a DO Not Use [employer] Stevanovic, 307.42 Sleep Disorder AT Jessupileana Mendieta M.D. 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 Mellitus W/O Compl Type II Or Unspec Controlled 278.00 Obesity Unspec 401.9 Hypertension Unspec 272.4 Hyperlipidemia Other Unspec 716.86 Arthropathy Other Spec Lower Leg 530.81 Esophageal Reflux 414.01 Coronary Atherosclerosis Hughes 412 Myocardial Infarction Old 565.0 Anal Fissure Plan of Treatment Future Appointment(s):06/19/2018 1:00 pm - Patience Davila PA-C at [facility]06/18/2018 1:15 pm - Shahram Lyons MD at [facility]06/10/2018 11:30 am - RAY Pak at [facility]-Qoapznmdh91/01/2019 10:45 am - Krystle Crisostomo M.D. at [facility]05/22/2018 - BLACK Crowder-[id number] Encounter for other specified surgical aftercareFollow up:4 weeks
--- NOTE | 2018-06-20 12:22 | ED ---
HPI Chest Pain - HPI Summary HPI Summary: This pt is an 83 y/o female presenting to [facility] via EMS from [facility] for chest pain today. Pt is at [facility] for rehab after L4 and L5 surgery. She was doing physical therapy today when she had onset of chest pain. Pt describes chest pain is similar to past SC in 2000. Denies fever, chills, SOB. Pt was given nitroglycerin x3 with full relief of chest pain. Her last stress test was "a while ago." Denies tobacco use. PMHx includes SC s/p cardiac stents x3, DM, HTN, afib, - History of Current Complaint Chief Complaint: EDChestPainROMI Time Seen by Provider: 06/20/18 12:10 Hx Obtained From: Patient Onset/Duration: Started Hours Ago, Still Present Timing: Lasting Hours Initial Severity: Moderate Current Severity: None Pain Intensity: 0 Pain Scale Used: 0-10 Numeric Chest Pain Location: Diffuse Chest Pain Radiates: No Aggravating Factor(s): Nothing Alleviating Factor(s): NTG 123 - x3 Associated Signs and Symptoms: Positive: Chest Pain. Negative: Shortness of Breath, Fever, Chills - Additional Pertinent History Primary Care Physician: ABISAI - Allergy/Home Medications Allergies/Adverse Reactions: Allergies Allergy/AdvReac Type Severity Reaction Status Date / Time Penicillins Allergy rash on Verified 03/12/18 14:32 face Home Medications: Home Medications Baclofen TAB* [Lioresal TAB*] 10 mg PO BID 06/20/18 [History Confirmed 06/20/18] Furosemide 20 mg PO DAILY 06/20/18 [History Confirmed 06/20/18] Gabapentin CAP(*) [Neurontin 100 mg CAP(*)] 100 mg PO BID 06/20/18 [History Confirmed 06/20/18] Ipratropium 0.5MG/2.5ML NEB* [Atrovent 0.5 MG NEB.DIANE*] 0.5 mg INH Q6H PRN 06/20 [History Confirmed 06/20/18] Sorbitol Solution [Sorbitol] 30 ml PO SEE INSTRUCTIONS PRN 06/20/18 [History Confirmed 06/20/18] guaiFENesin LIQ* [Robitussin*] 10 ml PO Q4H PRN 06/20/18 [History Confirmed ] oxyCODONE/Acetamin 5/325 MG* [Percocet 5/325 TAB*] 1 tab PO Q6HR PRN 06/20/18 [ History Confirmed 06/20/18] PMH/Surg Hx/FS Hx/Imm Hx Endocrine/Hematology History: Reports: Hx Diabetes, Hx Thyroid Disease - hypothyroid Denies: Hx Anticoagulant Therapy, Hx Blood Disorders, Hx Blood Transfusions, Hx Bone Marrow Disease, Hx Systemic Lupus Erythematosus, Hx Sickle Cell Disease , Hx Anemia, Hx Unexplained Bleeding Cardiovascular History: Reports: Hx Angina, Hx Angioplasty, Hx Coronary Artery Disease, Hx Deep Vein Thrombosis, Hx Hypercholesterolemia, Hx Hypertension, Hx Myocardial Infarction, Hx Peripheral Vascular Disease, Other Cardiovascular Problems/Disorders - a fib Denies: Hx Aneurysm, Hx Auto Implanted Cardiovert Defib, Hx Cardiac Arrest, Hx Cardiomegaly, Hx Congenital Heart Disease, Hx Congestive Heart Failure, Hx Hypotension, Hx Pacemaker/ICD, Hx Rheumatic Fever, Hx Syncope, Hx Valvular Heart Disease Respiratory History: Reports: Hx Sleep Apnea - states hx of but does not use CPAP at home Denies: Hx Asthma, Hx Chronic Bronchitis, Hx Chronic Obstructive Pulmonary Disease (COPD), Hx Cystic Fibrosis, Hx Lung Cancer, Hx Pleural Effusion, Hx Pneumonia, Hx Pulmonary Edema, Hx Pulmonary Embolism, Hx Seasonal Allergies, Other Respiratory Problems/Disorders GI History: Reports: Hx Diverticulosis, Hx Gastroesophageal Reflux Disease, Hx Gastrointestinal Bleed Denies: Hx Cirrhosis, Hx Crohn's Disease, Hx Gall Bladder Disease, Hx Hiatal Hernia, Hx Irritable Bowel, Hx Jaundice, Hx Obstructive Bowel, Hx Ileostomy, Hx Pyloric Stenosis, Hx Ulcer, Other GI Disorders History: Denies: Hx Acute Renal Failure, Hx Benign Prostatic Hyperplasia, Hx Chronic Renal Failure, Hx Dialysis, Hx Kidney Infection, Hx Kidney Stones, Other Problems/Disorders Musculoskeletal History: Reports: Hx Arthritis - generalized, Hx Back Problems, Hx Tendonitis - fingers, 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) Denies: Hx Bursitis, Hx Congenital Bone Abnormalities, Hx Fibromyalgia, Hx Gout, Hx Orthopedic Injury, Hx Osteoporosis, Hx Scoliosis Sensory History: Reports: Hx Cataracts, Hx Glaucoma, Hx Vision Problem, Hx Hearing Problem - hard of hearing Denies: Hx Contacts or Glasses, Hx Eye Injury, Hx Eye Prosthesis, Hx Macular Degeneration, Hx Deafness, Hx Hearing Aid, Other Sensory Impairments Opthamlomology History: Reports: Hx Cataracts, Hx Glaucoma, Hx Vision Problem Denies: Hx Contacts or Glasses, Hx Eye Injury, Hx Eye Prosthesis, Hx Macular Degeneration, Other Sensory Impairments Neurological History: Reports: Hx Headaches Denies: Hx Dementia, Hx Developmental Delay, Hx Migraine, Hx Seizures, Hx Spinal Cord Injury, Hx Transient Ischemic Attacks (TIA), Other Neuro Impairments /Disorders Psychiatric History: Denies: Hx Anxiety, Hx Attention Deficit Hyperactivity Disorder, Hx Eating Disorder, Hx Depression, Hx Panic Disorder, Hx Post Traumatic Stress Disorder, Hx Inpatient Treatment, Hx Community Mental Health Tx, Hx Schizophrenia, Hx Bipolar Disorder, Hx Suicide Attempt, Hx Substance Abuse, Other Psychiatric Issues/Disorders - Cancer History Hx Chemotherapy: No Hx Radiation Therapy: No - Surgical History Surgery Procedure, Year, and Place: KNEE REPLACEMENTS- LEFT KNEE X2, RIGHT KNEE X1;. Hysterectomy;. CATARACTS;. PART OF COLON REMOVED FOR DIVERTICULITIS;. CARPAL TUNNEL Hx Anesthesia Reactions: No - Immunization History Date of Tetanus Vaccine: unk Date of Influenza Vaccine: 2016 Infectious Disease History: No Infectious Disease History: Reports: History Other Infectious Disease - herpes Denies: Hx Clostridium Difficile, Hx Hepatitis, Hx Human Immunodeficiency Virus (HIV), Hx of Known/Suspected MRSA, Hx Shingles, Hx Tuberculosis, Hx Known/ Suspected VRE, Hx Known/Suspected VRSA, Traveled Outside the [place] in Last 30 Days - Family History Known Family History: Positive: Hypertension, Diabetes, Other - Diverticulitis, sickle cell, arthritis Family History: Type II - Social History Alcohol Use: Rare Alcohol Amount: "once a year" Hx Substance Use: No Substance Use Type: Reports: None Hx Tobacco Use: No Smoking Status (MU): Never Smoked Tobacco Have You Smoked in the Last Year: No Review of Systems Negative: Fever, Chills Positive: Chest Pain Negative: Shortness Of Breath All Other Systems Reviewed And Are Negative: Yes Physical Exam - Summary Physical Exam Summary: Appearance: Well appearing, no pain distress Skin: warm, dry, reflects adequate perfusion Head/face: normal Eyes: EOMI, ZACHARY ENT: normal Neck: supple, non-tender Respiratory: CTA, breath sounds present Cardiovascular: RRR, pulses symmetrical Abdomen: non-tender, soft Musculoskeletal: normal, strength/ROM intact Neuro: normal, sensory motor intact, A&Ox3 Triage Information Reviewed: Yes Vital Signs On Initial Exam: Initial Vitals Temp Pulse Resp BP Pulse Ox 98.7 F 63 16 163/86 95 06/20/18 12:00 06/20/18 12:00 06/20/18 12:00 06/20/18 12:00 06/20/18 12:00 Vital Signs Reviewed: Yes Diagnostics - Vital Signs Vital Signs Temp Pulse Resp BP Pulse Ox 06/20/18 12:00 98.7 F 63 16 163/86 95 - Laboratory Result Diagrams: 06/20/18 12:36 06/20/18 12:36 Lab Statement: Any lab studies that have been ordered have been reviewed, and results considered in the medical decision making process. - Radiology Chest XR Radiology Interpretation Completed By: Radiologist Summary of Radiographic Findings: IMPRESSION: Mild cardiomegaly, unchanged, no evidence for acute finding. Dr. Kulkarni has reviewed this report. - EKG 12:12 Cardiac Rate: NL - at 61 bpm EKG Rhythm: Sinus Rhythm Summary of EKG Findings: RBBB. Chest Pain Course/Dx - Course Assessment/Plan: Pt is an 83 y/o female who presents to the ED via EMS from [facility] for chest pain today. Pt notes similar chest pain to when she had SC in 2000. Pt received nitro x3 with full relief of chest pain. Blood work, EKG , XR obtained. EKG shows normal sinus rhythm at 61 bpm. Chest XR shows mild cardiomegaly, unchanged, no evidence for acute finding. Discussed the case with Dr. Jaquez, hospitalist, who accepted the pt for admission. - Chest Pain Differential Diagnosis/HQI/PQRI: Acute SC, Angina, Chest Wall, Lower Respiratory Infection - Diagnoses Provider Diagnoses: Chest pain, rule out acute myocardial infarction, History of coronary artery disease - Provider Notifications Discussed Care Of Patient With: Carl Jaquez - hospitalist Time Discussed With Above Provider: 13:16 Instructed by Provider To: Admit As Inpatient Discharge - Sign-Out/Discharge Documenting (check all that apply): Patient Departure - Admit to [facility] Patient Received Moderate/Deep Sedation with Procedure: No - Discharge Plan Condition: Stable Disposition: ADMITTED TO [facility] Referrals: Samantha GARCIA,Chloe Valenzuela [Primary Care Provider] - - Billing Disposition and Condition Condition: STABLE Disposition: Admitted to [facility] - Attestation Statements Document Initiated by Scribe: Yes Documenting Scribe: Beckie Diez Provider For Whom Scribe is Documenting (Include Credential): Patrick Kulkarni MD Scribe Attestation: I, Beckie Diez, scribed for Patrick Kulkarni MD on 06/20/18 at 1430. Scribe Documentation Reviewed: Yes Provider Attestation: The documentation as recorded by the Beckie spann accurately reflects the service I personally performed and the decisions made by me, Patrick Kulkarni MD Status of Scribe Document: Viewed
[2018-06-20 12:44] LABS: ABS Basophils 0 10^3/ul (0-0.2); ABS Eosinophils 0 10^3/ul (0-0.6); ABS Lymphocytes 0.8 10^3/ul (1.0-4.8); ABS Monocytes 0.9 10^3/ul (0-0.8); ABS Neutrophils 10.9 10^3/ul (1.5-7.7); ABS Nucleated RBC 0 10^3/ul; Eosinophil % 0 %; Hematocrit 38 % (33-41); Hemoglobin 12.4 g/dL (12.0-16.0); Lymphocyte % 6.5 %; Mean Corpuscular HGB Conc 33 g/dL (31-36); Mean Corpuscular Hemoglobin 29 pg (27-31); Mean Corpuscular Volume 90 fL (80-97); Mean Platelet Volume 7.8 fL (7.4-10.4); Nucleated Red Blood Cells % 0.1; Platelet Count 278 10^3/uL (150-450); Red Blood Count 4.21 10^6 /uL (3.70-4.87); Red Cell Distribution Width 16 % (10.5-15); White Blood Count 12.6 10^3/uL (3.5-10.8)
[2018-06-20 12:53] LABS: Activated Partial Thrombo Time 27.1 seconds (26.0-36.3); INR 0.87 (0.77-1.02)
[2018-06-20 13:02] LABS: Albumin 4.4 g/dL (3.2-5.2); Albumin/Globulin Ratio 1.3 (1-3); BUN/Creatinine Ratio 30.9 (8-20); Calcium 10.2 mg/dL (8.6-10.3); EGFR African American 45.2 (>60); EGFR Non-African American 37.3 (>60); Globulin 3.4 g/dL (2-4); Potassium 3.6 mmol/L (3.5-5.0); Total Bilirubin 0.4 mg/dL (0.2-1.0); Total Protein 7.8 g/dL (6.4-8.9)
[2018-06-20 13:05] LABS: Troponin I 0.01 ng/mL (<0.04)
[2018-06-20 13:07] LABS: CKMB ng/mL 1.1 ng/mL (0.6-6.3)
[2018-06-20] MEDS ORDERED: Dextrose 50% Syringe 50 ML* 25 GM/50 ML SYRINGE IV PUSH PRN (14:09)
[2018-06-20] MEDS ORDERED: Ondansetron INJ* 2 MG/ML VIAL IV PRN (14:09)
[2018-06-20] MEDS ORDERED: Acetaminophen TAB* 325 MG PO PRN (14:09)
[2018-06-20] MEDS ORDERED: Ipratropium 0.5MG/2.5ML NEB* 0.5 MG/2.5 ML NEB.SOLN INH PRN (14:12)
[2018-06-20] MEDS: hydrALAZINE TAB* 10 MG PO SCH ×2 (14:53→22:30)
[2018-06-20] MEDS ORDERED: hydrALAZINE IV* 20 MG/ML VIAL IV SLOW PU ONE (15:12)
[2018-06-20] MEDS ORDERED: hydrALAZINE IV* 20 MG/ML VIAL ONE (15:12)
--- NOTE | 2018-06-20 15:41 | HP ---
CC: [facility]; [facility] * HISTORY AND PHYSICAL: DATE OF ADMISSION: 06/20/18 PRIMARY CARE PROVIDER: [facility] and [facility] ATTENDING PHYSICIAN WHILE IN THE HOSPITAL: Dr. Jose Juan Jaquez * (report dictated by Percy Barrientos NP). CHIEF COMPLAINT: Chest pain. HISTORY OF PRESENT ILLNESS: Ms. Perdomo is an 83-year-old female patient with a complex medical history, who comes into the ER stating that she was at physical therapy today at [facility] [place] and she was doing exercises and she developed a tightness across the front of her chest, radiated into her jaw and over into the back. She denied having any associated shortness of breath. She denied having any nausea, no diaphoresis with this. She said the pain started at about 10:45, she got better in about 20 minutes. She took 3 nitro. It was noted according to the patient, at [facility] [place] her blood pressure was in the 200s. They were concerned because of the chest discomfort. They had called 911. By the time 911 got there, the pressure had gone away. She denies having any recent fevers and no recent illnesses. Denies having a recent cough. Denies having any recent chest pain with exertion. She says that she has not had any change in medications that she is aware of. She denies having any vomiting or diarrhea. She denied having any abdominal discomfort and she denied having any pain going down her arm. She said the symptoms having been gone and she denied having any headache, no visual changes reported and no weakness to one side. There was concern because of the chest pain, and given the fact that it was exertional chest pain, she came into the ED. She had significant risk factors. She has a history of CAD; hypertension; diet controlled diabetes; CKD; JACEY, noncompliant with mask. Because of these and her risk factors, we were asked to evaluate for admission. PAST MEDICAL HISTORY: Significant for: 1. Left bundle-branch block. 2. CAD. 3. Hypertension. 4. Diabetes. 5. DVT in the past. 6. CKD. 7. JACEY. 8. Osteoporosis. 9. GI bleed in the past. 10. Diverticulitis in the past. PAST SURGICAL HISTORY: 1. She has had cardiac catheterization. 2. Carpal tunnel. 3. Partial colectomy. 4. Bilateral total knee replacement. 5. Hysterectomy. 6. Cataracts. 7. Laminectomy at T10 and T11. MEDICATIONS: Home meds according to the list provided includes: 1. Percocet 1 tablet every 6 hours as needed. 2. Colace 100 mg daily. 3. Prolia 60 mg subcu every 6 months. 4. Guaifenesin 10 cc p.o. every 4 hours as needed. 5. Atrovent 0.5 mg inhaler every 6 hours as needed. 6. Nitro 0.4 mg sublingual q.5 minutes p.r.n. chest pain x3. 7. Sorbitol 30 mL p.o. as needed. 8. Milk of mag 30 cc every 4 hours as needed. 9. Lasix 20 mg a day. 10. Gabapentin 100 mg p.o. b.i.d. 11. Baclofen 10 mg p.o. b.i.d. 12. Hydralazine 5 mg p.o. t.i.d. 13. Valtrex 500 mg p.o. b.i.d. 14. Senna 1 tablet p.o. daily. 15. Prilosec 20 mg p.o. b.i.d. 16. Loratadine 10 mg daily. 17. Ferrous sulfate 325 mg p.o. daily. 18. Cod liver oil 1 capsule p.o. daily. 19. Calcium carbonate 600 mg p.o. b.i.d. 20. Diltiazem 180 mg daily. 21. Triamcinolone cream 1 application topically b.i.d. 22. Travatan 1 drop both eyes at bedtime. 23. Potassium 10 mEq p.o. daily. 24. Multivitamin 1 tablet daily. 25. Aspirin 81 mg daily. 26. MiraLAX 17 g p.o. daily. 27. Lisinopril 10 mg daily. ALLERGIES TO MEDICATIONS: Include PENICILLIN. FAMILY HISTORY: She has had a history of cancer with her mom and her father. SOCIAL HISTORY: She does not smoke. She does not drink. Surrogate decision maker is her son. REVIEW OF SYSTEMS: There is no documented fever. She denied having any significant weight change. There is no double vision. She denies having any ear discharge. No rhinorrhea. No sore throat. No thyroid enlargement. She did admit to chest pain per my HPI. She denies having any orthopnea. There was no nocturnal dyspnea. She denied having any abdominal pain. There was no nausea. There is no vomiting. There is no dysuria. There is no frequency. There was no seizure. There is no loss of consciousness. No pruritus and no skin ulcerations. Review of 14 systems was completed, all others negative. PHYSICAL EXAMINATION GENERAL: At this time, Ms. Perdomo is an 83-year-old female patient. She is sitting in the ED stretcher. She does not appear to be in any acute distress. VITAL SIGNS: Blood pressure 186/91, pulse 55, respirations were 18, O2 sat 97% , temperature 98.7. HEENT: Head: Atraumatic and normocephalic. Eyes: EOMs are intact. Sclerae anicteric and not pale. Throat: Oral mucosa appears to be moist. No oropharyngeal erythema. NECK: Supple. LUNGS: Clear to auscultation. No wheezes, rales, or rhonchi. HEART: Sounds S1, S2. She had a regular rate and rhythm. There was no murmurs , rubs, or gallops. ABDOMEN: Soft, flat, nontender. Bowel sounds were present. EXTREMITIES: Pulses were 2+ throughout. She had 5/5 strength in the right lower extremity throughout, 5/5 strength in the upper extremities bilaterally. Left lower extremity, she had 4/5 strength, she had 5/5 strength with dorsi and plantarflexion. This weakness in the left lower extremity is improving since her discharge in February after her laminectomy. Sensation was intact bilaterally. Her lower extremities pulses were 2+ as well. NEUROLOGIC: She is awake, alert. She is oriented x3. Her speech was clear. Tongue was midline. No facial drooping was noted. EOMs were intact. Pupils were equal and reactive to light. The [id number] is intact bilaterally. Hand Etcher were equal. She had no new focal deficits. Again, she did have weakness in the left lower extremity, but this is improving from her previous exams and is improving with rehab since her laminectomy. SKIN: Intact. DIAGNOSTIC STUDIES/LAB DATA: WBC of 12.6, RBC of 4.21, hemoglobin of 12.4, hematocrit 38, platelet count 270. INR 0.87, PTT 27.1. Sodium 141, potassium 3.6, chloride 101, bicarb 29, BUN 42, creatinine 1.36, glucose 91, lactic 1.3, calcium 10.2. Total bili 0.4, AST 18, ALT 10, alk phos 77. CK 78, CK-MB 1.1, troponin 0.01, BNP of 81. Albumin 4.4. She had a chest x-ray, which showed mild cardiomegaly, unchanged, no evidence for acute finding. EKG shows a left bundle-branch block with a rate of 61. Reviewed with previous EKG, is similar. Old medical records were reviewed. ASSESSMENT AND PLAN: Ms. Perdomo is an 83-year-old female patient coming in today with complaints of exertional chest pain. On evaluation in the ED today, first troponin and EKG are stable. She will be admitted under observation status for: 1. Chest pain, certainly could be related to her blood pressure being elevated , but I am concerned because she did have exertional chest discomfort, is now better; her blood pressure is still a little on the elevated side. She is due for a dose of her hydralazine now, I am going to give that to her. We will watch this. We will trend her troponins. I have ordered a stress test. We will place her on telemetry. She is on aspirin already. We will continue with this. I will check lipid panel and A1c and we will continue to follow. 2. Coronary artery disease. Continue her aspirin. She is not on a beta mami. She is on diltiazem. We will continue with this and consider adding statin depending on her lipid profile. 3. Hypertension. Continue meds as prescribed. 4. Diabetes. It is diet controlled, but I will check her blood sugars and order p.r.n. sliding scale. 5. History of DVT. She will be placed on DVT prophylaxis. 6. Chronic kidney disease. Creatinine is stable. 7. Obstructive sleep apnea. Follow up with PCP. 8. Osteoporosis. She is on Prolia. 9. History of gastrointestinal bleed and diverticulitis, not active issues. We will monitor. 10. DVT prophylaxis: We will place her on heparin subcu. 11. Code status: She is a DNR. 12. Fluids, electrolytes, and nutrition: She can have a heart-healthy diet and she will be n.p.o. after midnight. TIME SPENT: Time spent on the admission 60 minutes, greater than half the time spent [id number] with the patient obtaining my history and physical; other half of the time spent going over the plan of care with the patient and implementing my plan of care. I did discuss the plan of care with my attending, Dr. Jaquez; he is in agreement. PERCY BARRIENTOS NP [id number]/[facility] #: [id number] LESLIE
[2018-06-20] MEDS: Insulin LISPRO* 1 UNITS UNIT SUBCUT SCH (17:05)
[2018-06-20] MEDS: oxyCODONE/Acetamin 5/325 MG* TAB PO PRN (18:49)
[2018-06-20] MEDS: Gabapentin CAP(*) 100 MG PO SCH (22:30)
[2018-06-20] MEDS: Baclofen TAB* 10 MG PO SCH (22:30)
[2018-06-20] MEDS: Latanoprost 0.005%* 2.5 ml BTL BOTH EYES SCH (22:31)
[2018-06-20] MEDS: ValACYclovir (*) 500 MG TAB PO SCH (22:32)
[2018-06-20] MEDS: Heparin VIAL(*) 5000 UNITS/ML VIAL (FIVE THOUSAND) SUBCUT SCH (22:33)
[2018-06-21] MEDS: oxyCODONE/Acetamin 5/325 MG* TAB PO PRN ×3 (04:01→19:54)
[2018-06-21] MEDS: hydrALAZINE TAB* 10 MG PO SCH ×4 (04:02→19:56)
[2018-06-21] MEDS: Heparin VIAL(*) 5000 UNITS/ML VIAL (FIVE THOUSAND) SUBCUT SCH ×3 (05:18→20:00)
[2018-06-21 06:53] LABS: ABS Basophils 0 10^3/ul (0-0.2); ABS Eosinophils 0 10^3/ul (0-0.6); ABS Lymphocytes 1.3 10^3/ul (1.0-4.8); ABS Monocytes 0.6 10^3/ul (0-0.8); ABS Neutrophils 7.9 10^3/ul (1.5-7.7); ABS Nucleated RBC 0 10^3/ul; Eosinophil % 0.2 %; Hematocrit 36 % (33-41); Hemoglobin 11.9 g/dL (12.0-16.0); Lymphocyte % 13.6 %; Mean Corpuscular HGB Conc 33 g/dL (31-36); Mean Corpuscular Hemoglobin 30 pg (27-31); Mean Corpuscular Volume 90 fL (80-97); Mean Platelet Volume 8.1 fL (7.4-10.4); Nucleated Red Blood Cells % 0; Platelet Count 256 10^3/uL (150-450); Red Blood Count 4.03 10^6 /uL (3.70-4.87); Red Cell Distribution Width 15 % (10.5-15); White Blood Count 9.9 10^3/uL (3.5-10.8)
[2018-06-21 07:09] LABS: BUN/Creatinine Ratio 32.5 (8-20); Calcium 9.9 mg/dL (8.6-10.3); EGFR African American 55.4 (>60); EGFR Non-African American 45.7 (>60); Potassium 3.8 mmol/L (3.5-5.0)
[2018-06-21 07:11] LABS: INR 0.87 (0.77-1.02)
[2018-06-21] MEDS: Insulin LISPRO* 1 UNITS UNIT SUBCUT SCH ×3 (08:04→17:57)
[2018-06-21] MEDS ORDERED: hydrALAZINE IV* 20 MG/ML VIAL IV SLOW PU ONE (08:11)
[2018-06-21] MEDS: Polyethylene Glycol 3350* 17 GM PACKET PO SCH (08:25)
[2018-06-21] MEDS: Diltiazem CD CAP* 180 MG PO SCH (08:25)
[2018-06-21] MEDS: Multivitamins/Minerals TAB PO SCH (08:26)
[2018-06-21] MEDS: Potassium Chlor TAB* 10 MEQ TAB.ER PO SCH (08:26)
[2018-06-21] MEDS: Senna TAB PO SCH (08:26)
[2018-06-21] MEDS: Lisinopril TAB* 10 MG PO SCH (08:27)
[2018-06-21] MEDS: Furosemide TAB* 20 MG PO SCH (08:28)
[2018-06-21] MEDS: Gabapentin CAP(*) 100 MG PO SCH ×2 (08:28→19:55)
[2018-06-21] MEDS: Baclofen TAB* 10 MG PO SCH ×2 (08:28→20:08)
[2018-06-21] MEDS: Aspirin EC TAB* 81 MG TAB.EC PO SCH (08:28)
[2018-06-21] MEDS: Pantoprazole TAB * 40 MG TAB PO SCH (08:29)
[2018-06-21] MEDS: Cetirizine* 10 MG TAB PO SCH (08:29)
[2018-06-21] MEDS: Ferrous Sulfate TAB* 325 MG PO SCH (08:29)
[2018-06-21] MEDS: Docusate CAP* 100 MG PO SCH (08:29)
[2018-06-21] MEDS: ValACYclovir (*) 500 MG TAB PO SCH ×2 (09:31→19:57)
[2018-06-21] MEDS ORDERED: Regadenoson* 0.4 MG/5 ML SYRINGE ONE (11:24)
--- NOTE | 2018-06-21 14:39 | CONSULT ---
Subjective Date of Service: 06/21/18 Interval History: Date of consult 06/21/2018 Service: Hospitalist PCP: [facility] Video Effects Editor: Dr. Hartley CC: back and chest pain reason for consult: same HPI: Ms. Perdomo is an 83-year-old woman who developed upper back and upper chest pain while doing upper extremity PT including weights over her head. She did take 3 nitroglycerines. Her pain resolved and has not returned. She ruled out for ACS. She had a nuclear stress test lexiscan I reviewed. It was a poor quality study with patient motion, breast artifact and artifact from inadequate bowel clearance of tracer. There was no convincing ischemic defect limited by poor quality. Patient feels better now and wants to go home. She is going to refrain from upper extremity PT as it is suspected this caused musculoskeletal pain. PAST MEDICAL HISTORY: 1. Non-obstructive CAD, multiple previous evaluations for chest pain 2. Hypertension. 3. Diabetes. 4. DVT in the past. 5. CKD. 6. JACEY. 7. Osteoporosis. 8. GI bleed in the past. 9. Diverticulitis in the past. PAST SURGICAL HISTORY: 1. She has had 3 cardiac catheterizations 2. Carpal tunnel. 3. Partial colectomy. 4. Bilateral total knee replacement. 5. Hysterectomy. 6. Cataracts. 7. Laminectomy at T10 and T11. Allergies: Cat Dander 04/29/13 Dog Dander 04/29/13 Perfume 04/29/13 Tar 04/29/13 Cigarette Smoke 05/27/13 Penicillin 12/09/14 FAMILY HISTORY: She has had a history of cancer with her mom and her father. SOCIAL HISTORY: She does not smoke. She does not drink. Surrogate decision maker is her son. ASSESSMENT/PLAN: The patient comes in today for follow up of her hypertension and mild coronary artery disease. In speaking with the patient, I cannot elicit any cardiac symptoms. She denies any chest pain or shortness of breath. Again, her major complaint is leg weakness. I have asked the patient to stop her simvastatin for three weeks to see if that helps with her leg weakness. I have also asked the patient to contact her primary care physician about a possible physical therapy referral. The patient was instructed to restart the simvastatin if her leg soreness does not change with the stopping of the simvastatin. I will see the patient in followup in six months. Medications Active Medications: Acetaminophen (Tylenol Tab*) 650 mg PO Q4H PRN PRN Reason: FEVER/PAIN Aspirin (Aspirin Ec Tab*) 81 mg PO QAM [facility] Last Admin: 06/21/18 08:28 Dose: 81 mg Baclofen (Lioresal Tab*) 10 mg PO BID [facility] Last Admin: 06/21/18 08:28 Dose: 10 mg Cetirizine HCl (Zyrtec*) 10 mg PO QAM [facility] Last Admin: 06/21/18 08:29 Dose: 10 mg Dextrose (D50w Syringe 50 Ml*) 12.5 gm IV PUSH .FOR FS < 60 - SS PRN PRN Reason: FS < 60 Diltiazem HCl (Cardizem Cd Cap*) [facility] [place] Admin: 06/21/18 08:25 Dose: 180 mg Docusate Sodium (Colace Cap*) 100 [facility] [place] [facility] [place] Admin: 06/21/18 08:29 Dose: 100 mg Ferrous Sulfate (Ferrous Sulfate Tab*) 325 [facility] [place] [facility] [place] Admin: 06/21/18 08:29 Dose: 325 mg Furosemide (Lasix Tab*) 20 mg PO DAILY [facility] Last Admin: 06/21/18 08:28 Dose: 20 mg Gabapentin (Neurontin Cap(*)) 100 mg PO BID [facility] Last Admin: 06/21/18 08:28 Dose: 100 mg Heparin Sodium (Porcine) (Heparin Vial(*)) 5,000 units SUBCUT Q8HR [facility] Last Admin: 06/21/18 05:18 Dose: 5,000 units Hydralazine HCl (Apresoline Tab*) 5 mg PO TID [facility] Last Admin: 06/21/18 09:32 Dose: Not Given Insulin Human Lispro (Humalog*) 0 units SUBCUT AC [facility]; Protocol Last Admin: 06/21/18 13:34 Dose: Not Given Ipratropium [place] (Atrovent 0.5 Mg Neb.Diane*) 0.5 mg INH Q6H PRN PRN Reason: SOB/WHEEZING Latanoprost (Xalatan 0.005%*) 1 drop BOTH EYES BEDTIME [facility]; Protocol Last Admin: 06/20/18 22:31 Dose: 1 drop Lisinopril (Prinivil Tab*) 10 mg PO QAM [facility] Last Admin: 06/21/18 08:27 Dose: 10 mg Multivitamins/Minerals (Theragran/Minerals Tab*) 1 [facility] [place] [facility] [place] Admin: 06/21/18 08:26 Dose: 1 tab Ondansetron HCl (Zofran Inj*) 4 mg IV Q6H PRN PRN Reason: NAUSEA Oxycodone/Acetaminophen (Percocet 5/325 Tab*) 1 tab PO Q6HR PRN PRN Reason: PAIN Last Admin: 06/21/18 08:25 Dose: 1 tab Pantoprazole Sodium (Protonix Tab*) 40 mg PO DAILY [facility] Last Admin: 06/21/18 08:29 Dose: 40 mg Polyethylene Glycol/Electrolytes (Miralax*) 17 gm PO DAILY [facility] Last Admin: 06/21/18 08:25 Dose: 17 gm Potassium Chloride (Klor Con Er Tab*) 10 meq [facility] [place] [place] Admin: 06/21/18 08:26 Dose: 10 meq Senna (Senokot Tab*) 1 tab [facility] [place] [facility] [place] Admin: 06/21/18 08:26 Dose: 1 tab Valacyclovir HCl (Valtrex 500 Mg (*)) 500 mg PO BID [facility]; Protocol Last Admin: 06/21/18 09:31 Dose: 500 mg Home Medications: Lisinopril TAB* [Prinivil TAB 10 MG*] 10 mg PO QA 01/25/12 [History Confirmed 06/20/18] Travoprost Z 0.004% OPHTH (NF) [Travatan Z 0.004% OPTH (NF)] 1 drop BOTH EYES BEDTIME 06/30/14 [History Confirmed 06/20/18] Aspirin EC TAB* [Ecotrin EC Low Dose 81 MG*] 81 mg PO QAM 05/19/17 [History Confirmed 06/20/18] Cod Liver Oil 1 cap PO QAM 05/19/17 [History Confirmed 06/20/18] Denosumab(NF) [Prolia(NF)] 60 mg SUBCUT Q6M 05/19/17 [History Confirmed 06/20/18 ] Docusate CAP* [Colace Cap*] 100 mg PO QAM 05/19/17 [History Confirmed 06/20/18] Ferrous Sulfate TAB* 325 mg PO QAM 05/19/17 [History Confirmed 06/20/18] Multivitamins/Minerals TAB* [Theragran/minerals TAB*] 1 tab PO QAM 05/19/17 [ History Confirmed 06/20/18] Nitroglycerin TAB 0.4 MG* 0.4 mg SL Q5M PRN 05/19/17 [History Confirmed 06/20/18 ] Omeprazole CAP (NF) [Prilosec CAP* 20 MG] 20 mg PO BID 05/19/17 [History Confirmed 06/20/18] Potassium Chlor TAB* [Klor Con ER TAB 10 MEQ*] 10 meq PO QAM 05/19/17 [History Confirmed 06/20/18] Triamcinolone 0.025% OINT * 1 applic TOPICAL BID 05/19/17 [History Confirmed ] ValACYclovir (*) [Valtrex 500 mg (*)] 500 mg PO BID 05/19/17 [History Confirmed 06/20/18] dilTIAZem HCl [Diltiazem 24Hr ER] 180 mg PO QAM 05/19/17 [History Confirmed ] Polyethylene Glycol 3350* [Miralax*] 17 gm PO DAILY #30 packet 05/22/17 [Rx Confirmed 06/20/18] Magnesium Hydroxide LIQ* [Milk of Magnesia LIQ*] 30 ml PO Q4H PRN udc 01/23/18 [Rx Confirmed 06/20/18] hydrALAZINE TAB* [Apresoline TAB*] 5 mg PO TID #30 tab 01/23/18 [Rx Confirmed ] Calcium Carbonate TAB* 600 mg PO BID 03/05/18 [History Confirmed 06/20/18] Loratadine 10 mg PO QAM 03/05/18 [History Confirmed 06/20/18] Senna TAB* [Senokot TAB*] 1 tab PO QAM 03/05/18 [History Confirmed 06/20/18] Baclofen TAB* [Lioresal TAB*] 10 mg PO BID 06/20/18 [History Confirmed 06/20/18] Furosemide 20 mg PO DAILY 06/20/18 [History Confirmed 06/20/18] Gabapentin CAP(*) [Neurontin 100 mg CAP(*)] 100 mg PO BID 06/20/18 [History Confirmed 06/20/18] Ipratropium 0.5MG/2.5ML NEB* [Atrovent 0.5 MG NEB.DIANE*] 0.5 mg INH Q6H PRN 06/20 [History Confirmed 06/20/18] Sorbitol Solution [Sorbitol] 30 ml PO SEE INSTRUCTIONS PRN 06/20/18 [History Confirmed 06/20/18] guaiFENesin LIQ* [Robitussin*] 10 ml PO Q4H PRN 06/20/18 [History Confirmed ] oxyCODONE/Acetamin 5/325 MG* [Percocet 5/325 TAB*] 1 tab PO Q6HR PRN 06/20/18 [ History Confirmed 06/20/18] simvastatin 20 mg Review of Systems - Measurements Intake and Output: Intake and Output Last 24 Hours 06/19/18 06/20/18 06/21/18 06/22/18 06:59 06:59 06:59 06:59 Intake Total 350 360 Balance 350 360 Weight 217 lb 6.4 oz Intake: Oral 350 360 Other: Estimated Void Large # Voids 1 - Review of Systems Constitutional Symptoms: Positive: Fatigue Negative: Weight Gain, Weight Loss, Fever, Night Sweats Dermatology: Negative: Rash, Skin Lesions HEENT: Negative: Change in Hearing, Vertigo Eyes: Negative: Change in Vision, Double Vision Thyroid: Negative: Heat Intolerance, Sweatiness, Palpitations, Weight Loss, Weight Gain Pulmonary: Positive: Exercise Intolerance Negative: Cough, Sputum, Hemoptysis Cardiology: Negative: Shortness of Breath, Palpitations, Swelling of Ankles, Peripheral Vascular Dis, Faintness, Syncope, Claudication, Paroxysmal Nocturnal Dyspnea, Orthopnea Gastroenterology: Negative: Abdominal Pain, Nausea, Vomiting, Anorexia Musculoskeletal: Negative: Joint Pain, Joint Stiffness Endocrinology: Positive: Obesity Negative: Hyperglycemia, Polydipsia, Polyuria Hematologic/Lymphatic: Positive: Use of Antiplatelet Drugs Negative: Hx Leukemia, Hx Lymphoma, Use of Anticoagulant Neurology: Negative: Hx of Stroke\TIA, Hx Seizures Psychiatry: Negative: Unusual Anxiety, Suicidal Ideation Allergic/Immunologic: Negative: Hx HIV, Immunocompromise Review of Systems Statement: All other review of systems negative, unless stated above. Objective Vital Signs: Temp Pulse Resp BP Pulse Ox 98.5 F 57 16 206/93 99 06/21/18 07:28 06/21/18 07:28 06/21/18 08:28 06/21/18 07:28 06/21/18 07:28 Oxygen Devices in Use Now: None Appearance: nad, pleasdant Ears/Nose/Mouth/Throat: Clear Oropharnyx, Mucous Membranes Moist Neck: NL Appearance and Movements; NL JVP, Trachea Midline Respiratory: Symmetrical Chest Expansion and Respiratory Effort, Clear to Auscultation Cardiovascular: RRR, - - mild edema, 1-2/6 sysotlic murmur Abdominal: NL Sounds; No Tenderness; No Distention Skin: No Rash or Ulcers Neurological: Alert and Oriented x 3 Laboratory Results: 06/21/18 06:28 06/21/18 06:28 INR (Anticoag Therapy) 0.87 (0.77-1.02) 06/21/18 06:28 APTT 27.1 seconds (26.0-36.3) 06/20/18 12:36 Total Bilirubin 0.40 mg/dL (0.2-1.0) 06/20/18 12:36 AST 18 U/L (13-39) 06/20/18 12:36 ALT 10 U/L (7-52) 06/20/18 12:36 Alkaline Phosphatase 77 U/L (34-104) 06/20/18 12:36 CK-MB (CK-2) 1.1 ng/mL (0.6-6.3) 06/20/18 12:36 B-Natriuretic Peptide 81 pg/mL (<=100) 06/20/18 12:36 Total Protein 7.8 g/dL (6.4-8.9) 06/20/18 12:36 Albumin 4.4 g/dL (3.2-5.2) 06/20/18 12:36 Globulin 3.4 g/dL (2-4) 06/20/18 12:36 Albumin/Globulin Ratio 1.3 (1-3) 06/20/18 12:36 Triglycerides 84 mg/dL 06/21/18 06:28 Cholesterol 207 mg/dL 06/21/18 06:28 LDL Cholesterol 114 mg/dL 06/21/18 06:28 HDL Cholesterol 76.0 mg/dL 06/21/18 06:28 06/20/18 06/20/18 06/20/18 12:36 14:57 17:37 Troponin I 0.01 0.01 0.01 Diagnostic Imaging: Cardiac Catheterization - (03/27/2005) LV: normal function EF 65%, No MR, LM : normal, LAD: Mid 30%, D1: mid 50%, LCx: normal, RCA: normal EKG NSR RBBB LAFB unchanged from 01/16/2018 Assessment/Plan Patient is now pain free and ruled out for ACS. I suspect patients chest discomfort may have been related to musculoskeletal issues from upper extremity physical therapy. 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 Thank you for allowing me to participate in the cardiovascular care of this patient. Please do not hesitate to contact me with questions or concerns.
--- NOTE | 2018-06-21 18:45 | PN ---
Subjective Date of Service: 06/21/18 Interval History: Pt states that she has had no CP since yesterday. She states the CP only occurred with exercise of upper extremities. She states that she continues to have elevated BP. She states she has L shoulder injury that requires surgery, but she is not cleared. This limits her ROM in L shoulder. Objective Active Medications: Acetaminophen (Tylenol Tab*) 650 mg PO Q4H PRN Aspirin (Aspirin Ec Tab*) 81 mg PO QAM [facility] Baclofen (Lioresal Tab*) 10 mg PO BID [facility] Cetirizine HCl (Zyrtec*) 10 mg PO QAM [facility] Dextrose (D50w Syringe 50 Ml*) 12.5 gm IV PUSH .FOR FS < 60 - SS PRN Diltiazem HCl (Cardizem Cd Cap*) 180 mg PO QAM [facility] Docusate Sodium (Colace Cap*) 100 mg PO QAM [facility] Ferrous Sulfate (Ferrous Sulfate Tab*) 325 mg PO QAM [facility] Furosemide (Lasix Tab*) 20 mg PO DAILY [facility] Gabapentin (Neurontin Cap(*)) 100 mg PO BID [facility] Heparin Sodium (Porcine) (Heparin Vial(*)) 5,000 units SUBCUT Q8HR [facility] Hydralazine HCl (Apresoline Tab*) 5 mg PO TID [facility] Insulin Human Lispro (Humalog*) 0 units SUBCUT AC [facility]; Protocol Ipratropium [place] (Atrovent 0.5 Mg Neb.Josy*) 0.5 mg INH Q6H PRN Latanoprost (Xalatan 0.005%*) 1 drop BOTH EYES BEDTIME [facility]; Protocol Lisinopril (Prinivil Tab*) 10 mg PO QAM [facility] Multivitamins/Minerals (Theragran/Minerals Tab*) 1 tab PO QAM [facility] Ondansetron HCl (Zofran Inj*) 4 mg IV Q6H PRN Oxycodone/Acetaminophen (Percocet 5/325 Tab*) 1 tab PO Q6HR PRN Pantoprazole Sodium (Protonix Tab*) 40 mg PO DAILY [facility] Polyethylene Glycol/Electrolytes (Miralax*) 17 gm PO DAILY [facility] Potassium Chloride (Klor Con Er Tab*) 10 meq PO QAM [facility] Senna (Senokot Tab*) 1 tab PO QAM [facility] Valacyclovir HCl (Valtrex 500 Mg (*)) 500 mg PO BID [facility]; Protocol Vital Signs: Temp Pulse Resp BP Pulse Ox 98.2 F 65 18 148/78 100 06/21/18 15:15 06/21/18 15:15 06/21/18 15:15 06/21/18 15:15 06/21/18 15:15 Oxygen Devices in Use Now: None Appearance: Pt is sitting up in chair. She appears well and in no acute distress. Eyes: No Scleral Icterus, PERRLA Ears/Nose/Mouth/Throat: NL Teeth, Lips, Gums, Clear Oropharnyx, Mucous Membranes Moist Neck: NL Appearance and Movements; NL JVP, Trachea Midline Respiratory: Symmetrical Chest Expansion and Respiratory Effort, Clear to Auscultation Cardiovascular: NL Sounds; No Murmurs; No JVD, RRR Abdominal: NL Sounds; No Tenderness; No Distention, No Hepatosplenomegaly Extremities: No Clubbing, Cyanosis, - - 2+ pitting edema b/l LE Neurological: Alert and Oriented x 3 Result Diagrams: 06/21/18 06:28 06/21/18 06:28 Microbiology and Other Data: Microbiology 06/20/18 16:12 Aerobic Blood Culture - Preliminary Blood Venous No Growth Day 1 Anaerobic Blood Culture - Preliminary No Growth Day 1 06/20/18 14:57 Aerobic Blood Culture - Preliminary Blood Venous No Growth Day 1 Anaerobic Blood Culture - Preliminary No Growth Day 1 Assess/Plan/Problems-Billing Assessment: Pt is an 83 yof with PMHx LBBB, CAD, HTN, DM, CKD, JACEY, osteoporosis who presents with CP, r/o ACS. - Patient Problems (1) Chest pain Comment: -NM stress test reveals intermediate risk; cardiology consulted, and pt cleared from cardiac standpoint -Elevated LDL; will start atorvastatin in a.m. with follow up to PCP (2) HTN (hypertension) Comment: -Trending down -Continue Lisinopril, Diltiazem, furosemide, hydralazine -Continue to monitor. (3) Chronic kidney disease Comment: -Cr decreased and at baseline (4) CAD (coronary artery disease) Comment: -Continue ASA and Lisinopril (5) Diabetes mellitus Comment: -Controlled. -Continue FS and Lispro SS. (6) DVT prophylaxis Comment: -Heparin (7) DNR (do not resuscitate) Status and Disposition: Observation. Discharge when stable.
[2018-06-21] MEDS: Latanoprost 0.005%* 2.5 ml BTL BOTH EYES SCH (19:59)
[2018-06-22] MEDS: oxyCODONE/Acetamin 5/325 MG* TAB PO PRN (03:20)
[2018-06-22] MEDS: Heparin VIAL(*) 5000 UNITS/ML VIAL (FIVE THOUSAND) SUBCUT SCH ×2 (06:06→14:10)
[2018-06-22] MEDS: Insulin LISPRO* 1 UNITS UNIT SUBCUT SCH ×2 (10:16→12:31)
[2018-06-22] MEDS: ValACYclovir (*) 500 MG TAB PO SCH (10:17)
[2018-06-22] MEDS: Multivitamins/Minerals TAB PO SCH (10:17)
[2018-06-22] MEDS: Diltiazem CD CAP* 180 MG PO SCH (10:17)
[2018-06-22] MEDS: Potassium Chlor TAB* 10 MEQ TAB.ER PO SCH (10:17)
[2018-06-22] MEDS: Aspirin EC TAB* 81 MG TAB.EC PO SCH (10:18)
[2018-06-22] MEDS: Docusate CAP* 100 MG PO SCH (10:18)
[2018-06-22] MEDS: Baclofen TAB* 10 MG PO SCH (10:18)
[2018-06-22] MEDS: Ferrous Sulfate TAB* 325 MG PO SCH (10:18)
[2018-06-22] MEDS: hydrALAZINE TAB* 10 MG PO SCH ×2 (10:19→14:40)
[2018-06-22] MEDS: Cetirizine* 10 MG TAB PO SCH (10:20)
[2018-06-22] MEDS: Senna TAB PO SCH (10:20)
[2018-06-22] MEDS: Gabapentin CAP(*) 100 MG PO SCH (10:20)
[2018-06-22] MEDS: Pantoprazole TAB * 40 MG TAB PO SCH (10:20)
[2018-06-22] MEDS: Furosemide TAB* 20 MG PO SCH (10:21)
[2018-06-22] MEDS: Lisinopril TAB* 10 MG PO SCH (10:21)
[2018-06-22] MEDS: Polyethylene Glycol 3350* 17 GM PACKET PO SCH (10:21)
--- NOTE | 2018-06-22 13:56 | DS ---
DISCHARGE SUMMARY: DATE OF ADMISSION: 06/20/18 DATE OF DISCHARGE: 06/22/18 PRIMARY CARE PROVIDER: BLACK [facility] CARDIOLOGISTS: Dr. Carson Hartley, Dr. Oracio Danielle. ATTENDING PHYSICIAN: Dr. Parra.* (DICTATED BY BL[facility] COMBS) PRIMARY DIAGNOSIS: Musculoskeletal chest pain. SECONDARY DIAGNOSES: 1. Left bundle-branch block. 2. Coronary artery disease. 3. Hypertension. 4. Diabetes. 5. Chronic kidney disease. 6. Obstructive sleep apnea. 7. Osteoporosis. 8. History of deep venous thrombosis. 9. History of gastrointestinal bleed. 10. History of diverticulitis. STUDIES WHILE IN THE HOSPITAL: Chest x-ray, 06/20/18, impression: Mild cardiomegaly, unchanged. No evidence for acute findings. Electrocardiogram, 06/20/18: Sinus rhythm; normal P axis; ventricular rate 60 to 99; borderline prolonged [place] interval; right bundle-branch block; inferior infarct, old, II, III, aVF, lateral leads also involved. Nuclear medicine stress test, impression: Reversible photopenia of the anterior wall. The differential includes ischemia versus soft tissue attenuation artifact. Assessment: Intermediate risk. CONSULTATION: On 06/21/18, Dr. Kike Cristina. ASSESSMENT/PLAN: The patient is now pain-free and ruled out for acute coronary syndrome. I suspect the patient's chest discomfort may have been related to musculoskeletal issues from upper extremity physical therapy. 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 DISCHARGE MEDICATIONS: 1. Oxycodone/acetaminophen 5/325 one tab p.o. q.6 hours p.r.n. 2. Docusate 100 mg p.o. q.a.m. 3. Prolia 60 mg subcu q.6 months. 4. Guaifenesin 10 mL p.o. q.4 hours p.r.n. 5. Atrovent 0.5 mg neb, 0.5 mg inhalation q.6 hours p.r.n. 6. Nitroglycerin 0.4 mg sublingual q.5 minutes p.r.n. 7. Sorbitol solution 30 mL p.r.n. constipation. 8. Magnesium hydroxide 30 mL p.o. q.4 hours p.r.n. 9. Furosemide 20 mg p.o. daily. 10. Gabapentin 100 mg p.o. b.i.d. 11. Baclofen 10 mg p.o. b.i.d. 12. Hydralazine 5 mg p.o. t.i.d. 13. Valacyclovir 500 mg p.o. b.i.d. 14. Senna tab 1 tab p.o. q.a.m. 15. Omeprazole 20 mg p.o. b.i.d. 16. Loratadine 10 mg p.o. q.a.m. 17. Ferrous sulfate 325 mg p.o. q.a.m. 18. Cod liver oil 1 cap p.o. q.a.m. 19. Calcium carbonate tab 600 mg p.o. b.i.d. 20. Triamcinolone 0.025% ointment 1 application topically b.i.d. 21. Travoprost Z 0.004 ophthalmic 1 drop to both eyes at bedtime. 22. Potassium chloride 10 mEq p.o. q.a.m. 23. Multivitamin/minerals 1 tab p.o. q.a.m. 24. Aspirin EC 81 mg p.o. q.a.m. 25. Polyethylene glycol 17 g p.o. daily. 26. Lisinopril 10 mg p.o. q.a.m. Changed home medication: 1. Diltiazem 240 mg p.o. q.a.m. New home medication: 1. Atorvastatin 20 mg p.o. at bedtime. HISTORY OF PRESENT ILLNESS/HOSPITAL COURSE: Ms. Perdomo is an 83-year-old female with a past medical history as described above, who presented to the ER on 06/20/18 with complaints of tightness across the anterior chest with radiation to the back and the right jaw. This started when she was doing overhead physical therapy arm exercises. It is also noted that the patient's blood pressure was elevated into the 200s during this time. This prompted her to caretakers at [facility] to refer her to the ER. Upon arrival, denied nausea or diaphoresis currently and at the time of evaluation. She also denied recent chest pain with exertion and recent illness. Due to a history of risk factors and a history of coronary artery disease, hypertension and diet-controlled diabetes, the hospitalist team was asked to evaluate the patient and admit her. Throughout her stay, she received a full workup. Pertinent laboratory data includes triglycerides 84, cholesterol 207, LDL 114, HDL 76. Hemoglobin A1c 5.2. The patient had negative troponins x3 throughout her stay. She received a nuclear medicine stress test, which revealed intermediate risk. Cardiology was consulted at that point and they discharged her from a cardiac standpoint as the patient was pain-free and ACS was ruled out. It is also noted that the patient is tender to palpation across the anterior chest wall and onset of symptoms began with upper extremity overhead physical therapy. It is noted that throughout the patient's stay her blood pressure was frequently elevated into the 190s and low 200s. Home medications include hydralazine which was given to the patient on an as needed basis. She did require this medication frequently. On the day of discharge, the patient denies chest pain. She states she has not had an episode of chest pain since her arrival into the ER. She does continue to have elevated blood pressure. She denies shortness of breath, diaphoresis, vision changes, headache. She denies abdominal pain, nausea, vomiting, diarrhea, constipation, or pain in the calves. Ms. Perdomo is stable for discharge. PHYSICAL EXAMINATION: Temperature 98.2, heart rate 67, respiratory rate 18, oxygen saturation 99% on room air, blood pressure 179/78. General: Ms. Perdomo is a well- developed, well-nourished, obese, elderly woman, who is sitting up in bed. She is in no acute distress. HEENT: Visual cardenas are grossly intact. Pupils are equally round and reactive to light. Extraocular movements are intact. Sclerae without icterus. Hearing is grossly intact. Oral mucous membranes are moist and without lesions. Pharynx is clear. Neck: Trachea midline. No lymphadenopathy. Cardiovascular: Regular rate and rhythm with S1, S2 present. No murmurs, rubs, or gallops. There is no JVD. Telemetry reveals right bundle-branch block and normal sinus rhythm. Chest wall tender to palpation across the anterior chest. Respiratory: Symmetrical chest expansion with no use of accessory muscles. Lungs are clear to auscultation. There are no rhonchi, wheezes, or rales. Abdomen: Abdomen is obese. Bowel sounds in all quadrants. Abdomen is soft and nontender to palpation. There is no hepatosplenomegaly. Extremities: Skin is warm and smooth bilaterally. There is trace edema in bilateral lower extremities. There is no clubbing or cyanosis. Radial and pedal pulses are palpable. Neuro : The patient is awake. She is alert and oriented x3. Cranial nerves are grossly intact. She is able to move all of her extremities. DISCHARGE PLAN: Ms. Perdomo will be discharged back to [facility]. ACTIVITY: As tolerated. DIET: Heart healthy, diabetic/ADA. MEDICATIONS: As above. EDUCATION: 1. Start atorvastatin tonight due to elevated LDL cholesterol of 114. 2. Increase diltiazem from 180 to 240 mg due to hypertension. Follow closely with primary care provider for blood pressure and heart rate. 3. Monitor and log blood pressure readings daily and review with primary care provider at next appointment. 4. Follow up with primary care provider in 4 to 7 days regarding recent hospitalization, hypertension and stress testing. 5. Follow up with experimental flight test mechanic in 1 to 2 weeks regarding stress testing. 6. Return to the ER or nearest hospital if you experience any worsening of symptoms, shortness of breath, lightheadedness, dizziness, chest discomfort, high fevers, chills, night sweats, loss of consciousness, or any other worrisome signs or symptoms. This is a summarized report of a complex medical history and hospital stay. For further details, please see the entire medical record. TIME SPENT: Approximately 40 minutes was spent on this discharge, greater than half of that time was spent [id number] with the patient discussing discharge plans and instructions. BL[facility]BS [id number]/[facility] #: [id number] LESLIE
[2018-06-22 15:48] VITALS: BP 165/80
== END 2018-06-22 16:58 ==
LOC: ED 11:53 → MEDTELE 14:05
PROVIDERS: ADMIT Student in an Organized Health Care Education/Training Program; ATTEND Internal Medicine
DX: R07.9 Chest pain, unspecified (principal); I44.7 Left bundle-branch block, unspecified; I25.10 Atherosclerotic heart disease of native coronary artery without angina pectoris; I10 Essential (primary) hypertension; E11.9 Type 2 diabetes mellitus without complications; E11.22 Type 2 diabetes mellitus with diabetic chronic kidney disease; I12.9 Hypertensive chronic kidney disease with stage 1 through stage 4 chronic kidney disease, or unspecified chronic kidney disease; N18.9 Chronic kidney disease, unspecified; G47.33 Obstructive sleep apnea (adult) (pediatric); M81.0 Age-related osteoporosis without current pathological fracture; Z86.718 Personal history of other venous thrombosis and embolism; Z87.19 Personal history of other diseases of the digestive system; Z79.82 Long term (current) use of aspirin; Z66 Do not resuscitate; Z95.5 Presence of coronary angioplasty implant and graft
CPT/HCPCS: 36415; 71045; 78452; 80048; 80053; 80061; 82550; 82553; 83036; 83605; 83880; 84484; 85025; 85610; 85730; 87040; 93005; 93017; 96372; 96374; 96375; 99284; A9270-GY; A9502; G0378; J0360; J1644; J2785

== ENCOUNTER 2018-08-12 09:47 | Emergency (ER) | payer MEDICARE ==
[2018-08-12 09:50] VITALS: BP 171/103
--- NOTE | 2018-08-12 10:03 | ED ---
Lower Extremity - HPI Summary HPI Summary: Patient is an 83-year-old female presenting to the ED with bilateral lower extremity intermittent neuropathy since her surgery in February. She had surgery with Dr. Calixto of the thoracic spine. Thoracic decompressive laminectomy of T10 and T11 due to thoracic stenosis with myelopathy. She states since this time she has had intermittent numbness and tingling to the bilateral hips running down into the feet. She states she believes this was present prior to the surgery, but she had noticed it in the past few months. Symptoms are not worse with ambulation or better with rest. Not worse or better with positioning. Denies any pain. Denies any bladder or bowel dysfunction. Continues to be able to ambulate well. She states the feeling is just "bothering her." She has not called her doctor or Dr. Calixto in the past few months she has been expressing symptoms. - History of Current Complaint Chief Complaint: EDExtremityLower Stated Complaint: NUMBNESS IN FEET PER EMS Time Seen by Provider: 08/12/18 09:48 Hx Obtained From: Patient Severity Initially: Mild Severity Currently: None Pain Intensity: 0 Pain Scale Used: 0-10 Numeric Timing: Constant Location: Is Discrete @ Character Of Pain: Aching Associated Signs And Symptoms: Positive: Negative Aggravating Factor(s): Standing, Ambulation Alleviating Factor(s): Rest Able to Bear Weight: Yes - Risk Factors Gout Risk Factors: Negative DVT Risk Factors: Negative Septic Arthritis Risk Factor: Negative - Allergies/Home Medications Allergies/Adverse Reactions: Allergies Allergy/AdvReac Type Severity Reaction Status Date / Time Penicillins Allergy rash on Verified 03/12/18 14:32 face Home Medications: Home Medications hydrALAZINE TAB* [Apresoline TAB*] 5 mg PO BID 08/12/18 [History Confirmed 08/12] PMH/Surg Hx/FS Hx/Imm Hx Previously Healthy: Yes Endocrine/Hematology History: Reports: Hx Diabetes, Hx Thyroid Disease - hypothyroid Denies: Hx Anticoagulant Therapy, Hx Blood Disorders, Hx Blood Transfusions, Hx Bone Marrow Disease, Hx Systemic Lupus Erythematosus, Hx Sickle Cell Disease , Hx Anemia, Hx Unexplained Bleeding Cardiovascular History: Reports: Hx Angina, Hx Angioplasty, Hx Coronary Artery Disease, Hx Deep Vein Thrombosis, Hx Hypercholesterolemia, Hx Hypertension, Hx Myocardial Infarction, Other Cardiovascular Problems/Disorders - a fib Denies: Hx Aneurysm, Hx Auto Implanted Cardiovert Defib, Hx Cardiac Arrest, Hx Cardiomegaly, Hx Congenital Heart Disease, Hx Congestive Heart Failure, Hx Hypotension, Hx Pacemaker/ICD, Hx Peripheral Vascular Disease, Hx Rheumatic Fever, Hx Syncope, Hx Valvular Heart Disease Respiratory History: Reports: Hx Sleep Apnea - states hx of but does not use CPAP at home Denies: Hx Asthma, Hx Chronic Bronchitis, Hx Chronic Obstructive Pulmonary Disease (COPD), Hx Cystic Fibrosis, Hx Lung Cancer, Hx Pleural Effusion, Hx Pneumonia, Hx Pulmonary Edema, Hx Pulmonary Embolism, Hx Seasonal Allergies, Other Respiratory Problems/Disorders GI History: Reports: Hx Diverticulosis, Hx Gastroesophageal Reflux Disease, Hx Gastrointestinal Bleed Denies: Hx Cirrhosis, Hx Crohn's Disease, Hx Gall Bladder Disease, Hx Hiatal Hernia, Hx Irritable Bowel, Hx Jaundice, Hx Obstructive Bowel, Hx Ileostomy, Hx Pyloric Stenosis, Hx Ulcer, Other GI Disorders History: Denies: Hx Acute Renal Failure, Hx Benign Prostatic Hyperplasia, Hx Chronic Renal Failure, Hx Dialysis, Hx Kidney Infection, Hx Kidney Stones, Other Problems/Disorders Musculoskeletal History: Reports: Hx Arthritis, Hx Back Problems, Hx Tendonitis - fingers, 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) Denies: Hx Bursitis, Hx Congenital Bone Abnormalities, Hx Fibromyalgia, Hx Gout, Hx Orthopedic Injury, Hx Osteoporosis, Hx Scoliosis Sensory History: Reports: Hx Cataracts, Hx Glaucoma, Hx Vision Problem, Hx Hearing Problem - hard of hearing Denies: Hx Contacts or Glasses, Hx Eye Injury, Hx Eye Prosthesis, Hx Macular Degeneration, Hx Deafness, Hx Hearing Aid, Other Sensory Impairments Opthamlomology History: Reports: Hx Cataracts, Hx Glaucoma, Hx Vision Problem Denies: Hx Contacts or Glasses, Hx Eye Injury, Hx Eye Prosthesis, Hx Macular Degeneration, Other Sensory Impairments Neurological History: Reports: Hx Headaches Denies: Hx Dementia, Hx Developmental Delay, Hx Migraine, Hx Seizures, Hx Spinal Cord Injury, Hx Transient Ischemic Attacks (TIA), Other Neuro Impairments /Disorders Psychiatric History: Denies: Hx Anxiety, Hx Attention Deficit Hyperactivity Disorder, Hx Eating Disorder, Hx Depression, Hx Panic Disorder, Hx Post Traumatic Stress Disorder, Hx Inpatient Treatment, Hx Community Mental Health Tx, Hx Schizophrenia, Hx Bipolar Disorder, Hx Suicide Attempt, Hx Substance Abuse, Other Psychiatric Issues/Disorders - Cancer History Hx Chemotherapy: No Hx Radiation Therapy: No - Surgical History Surgery Procedure, Year, and Place: KNEE REPLACEMENTS- LEFT KNEE X2, RIGHT KNEE X1;. Hysterectomy;. CATARACTS;. PART OF COLON REMOVED FOR DIVERTICULITIS;. CARPAL TUNNEL Hx Anesthesia Reactions: No - Immunization History Date of Tetanus Vaccine: unk Date of Influenza Vaccine: 2017 Infectious Disease History: No Infectious Disease History: Reports: History Other Infectious Disease - herpes Denies: Hx Clostridium Difficile, Hx Hepatitis, Hx Human Immunodeficiency Virus (HIV), Hx of Known/Suspected MRSA, Hx Shingles, Hx Tuberculosis, Hx Known/ Suspected VRE, Hx Known/Suspected VRSA, Traveled Outside the [place] in Last 30 Days - Family History Known Family History: Positive: Hypertension, Diabetes, Other - Diverticulitis, sickle cell, arthritis Family History: Type II - Social History Occupation: Unemployed Lives: With Family Alcohol Use: Rare Alcohol Amount: "once a year" Hx Substance Use: No Substance Use Type: Reports: None Hx Tobacco Use: No Smoking Status (MU): Never Smoked Tobacco Have You Smoked in the Last Year: No Review of Systems Negative: Fever, Chills, Fatigue, Skin Diaphoresis Negative: Palpitations, Chest Pain Negative: Shortness Of Breath, Cough Genitourinary: Negative Positive: no symptoms reported, see HPI. Negative: burning, dysuria, hematuria , incontinence Negative: Arthralgia, Myalgia Skin: Negative Positive: Paresthesia, Numbness Psychological: Normal All Other Systems Reviewed And Are Negative: Yes Physical Exam Triage Information Reviewed: Yes Vital Signs On Initial Exam: Initial Vitals Temp Pulse Resp BP Pulse Ox 98.1 F 66 16 171/103 97 08/12/18 09:48 08/12/18 09:48 08/12/18 09:48 08/12/18 09:48 08/12/18 09:48 Vital Signs Reviewed: Yes Appearance: Positive: Well-Appearing, Well-Nourished Skin: Positive: Skin Color Reflects Adequate Perfusion Head/Face: Positive: Normal Head/Face Inspection Eyes: Positive: EOMI, Conjunctiva Clear Neck: Positive: Supple, No Lymphadenopathy Respiratory/Lung Sounds: Positive: Clear to Auscultation, Breath Sounds Present Cardiovascular: Positive: RRR Musculoskeletal: Positive: Strength/ROM Intact Neurological: Positive: Sensory/Motor Intact, Alert, Oriented to Person Place, Time, CN Intact II-III, Reflexes Intact, Normal Gait, Speech Normal Psychiatric: Positive: Normal, Affect/Mood Appropriate AVPU Assessment: Alert Diagnostics - Vital Signs Vital Signs Temp Pulse Resp BP Pulse Ox 08/12/18 09:48 98.1 F 66 16 171/103 97 - Laboratory Lab Statement: Any lab studies that have been ordered have been reviewed, and results considered in the medical decision making process. Lower Extremity Course/Dx - Course Course Of Treatment: During this was treatment, the patient is evaluated for bilateral numbness and tingling to the lower extremities. She had a thoracic laminectomy to the T10 and T11 in [address] Calixto. On physical examination, there are no neuro deficits to the lower 70s. Good strength bilaterally. Equal sensation to lateral medial sides of the thigh and calf. Good pulses +2 intact bilaterally. Lower extremity jerks away with painful stimulation bilaterally. Ambulating well. Denies any numbness or tingling currently. Discussed with the patient she will need to follow up with Dr. Calixto if symptoms persist, however at this time there is no clinical indication to obtain a CT scan or an x-ray. This is likely a lumbar radiculopathy. - Diagnoses Differential Diagnosis/HQI/PQRI: Positive: Sprain, Strain Provider Diagnoses: Paresthesia Discharge - Sign-Out/Discharge Documenting (check all that apply): Patient Departure Patient Received Moderate/Deep Sedation with Procedure: No - Discharge Plan Condition: Stable Disposition: HOME Patient Education Materials: Peripheral Neuropathy (ED), Lumbar Radiculopathy ( ED) Referrals: Stephen Calixto MD [Medical Doctor] - [facility] JOSE,Chloe Valenzuela [Primary Care Provider] - Additional Instructions: Please follow up with Dr. Calixto regarding your neuropathy symptoms This is likely a normal complication from the surgery or an acute neuropathy from a pinched nerve This is not emergent as you have full function of your lower extremities If you develop bladder or bowel dysfunction or you are unable to walk - you need to return to the ED - Billing Disposition and Condition Condition: STABLE Disposition: Home
== END 2018-08-12 10:11 | disposition home or self-care (01) ==
LOC: ED 09:47
DX: R20.2 Paresthesia of skin (principal); I10 Essential (primary) hypertension; I25.2 Old myocardial infarction; I48.91 Unspecified atrial fibrillation; I25.10 Atherosclerotic heart disease of native coronary artery without angina pectoris; E11.9 Type 2 diabetes mellitus without complications; E03.9 Hypothyroidism, unspecified; D57.1 Sickle-cell disease without crisis; E78.00 Pure hypercholesterolemia, unspecified; K21.9 Gastro-esophageal reflux disease without esophagitis; Z88.0 Allergy status to penicillin; Z86.718 Personal history of other venous thrombosis and embolism
CPT/HCPCS: 99282

== ENCOUNTER 2018-08-25 10:09 | Emergency (ER) | payer MEDICARE, MEDICAID, OTHER ==
[2018-08-25] MEDS ORDERED: oxyCODONE/Acetamin 5/325 MG* TAB PO ONE (10:39)
--- NOTE | 2018-08-25 11:09 | ED ---
Back Pain - HPI Summary HPI Summary: This patient is an 83 year old F brought in by ambulance to [facility] with a chief complaint of back and leg pain with generalized spasms since this morning. Additionally c/o RLQ abdominal pain. Denies fever. Reports back surgery performed by Dr. Calixto in February 2018. She typically take oxycodone for her pain, but has not helped today. Patient is not a patient of the pain clinic. - History of Current Complaint Chief Complaint: EDGeneral Stated Complaint: PAIN PER EMS Time Seen by Provider: 08/25/18 10:23 Hx Obtained From: Patient Onset/Duration: Lasting Hours Timing: Constant Back Pain Location: Is Diffuse Pain Intensity: 0 Alleviating Symptom(s): Nothing Associated Signs And Symptoms: Positive: Abdominal Pain, Other - spasms. Negative: Fever - Allergies/Home Medications Allergies/Adverse Reactions: Allergies Allergy/AdvReac Type Severity Reaction Status Date / Time Penicillins Allergy rash on Verified 03/12/18 14:32 face PMH/Surg Hx/FS Hx/Imm Hx Endocrine/Hematology History: Reports: Hx Diabetes, Hx Thyroid Disease - hypothyroid Denies: Hx Anticoagulant Therapy, Hx Blood Disorders, Hx Blood Transfusions, Hx Bone Marrow Disease, Hx Systemic Lupus Erythematosus, Hx Sickle Cell Disease , Hx Anemia, Hx Unexplained Bleeding Cardiovascular History: Reports: Hx Angina, Hx Angioplasty, Hx Coronary Artery Disease, Hx Deep Vein Thrombosis, Hx Hypercholesterolemia, Hx Hypertension, Hx Myocardial Infarction, Other Cardiovascular Problems/Disorders - a fib Denies: Hx Aneurysm, Hx Auto Implanted Cardiovert Defib, Hx Cardiac Arrest, Hx Cardiomegaly, Hx Congenital Heart Disease, Hx Congestive Heart Failure, Hx Hypotension, Hx Pacemaker/ICD, Hx Peripheral Vascular Disease, Hx Rheumatic Fever, Hx Syncope, Hx Valvular Heart Disease Respiratory History: Reports: Hx Sleep Apnea - states hx of but does not use CPAP at home Denies: Hx Asthma, Hx Chronic Bronchitis, Hx Chronic Obstructive Pulmonary Disease (COPD), Hx Cystic Fibrosis, Hx Lung Cancer, Hx Pleural Effusion, Hx Pneumonia, Hx Pulmonary Edema, Hx Pulmonary Embolism, Hx Seasonal Allergies, Other Respiratory Problems/Disorders GI History: Reports: Hx Diverticulosis, Hx Gastroesophageal Reflux Disease, Hx Gastrointestinal Bleed Denies: Hx Cirrhosis, Hx Crohn's Disease, Hx Gall Bladder Disease, Hx Hiatal Hernia, Hx Irritable Bowel, Hx Jaundice, Hx Obstructive Bowel, Hx Ileostomy, Hx Pyloric Stenosis, Hx Ulcer, Other GI Disorders History: Denies: Hx Acute Renal Failure, Hx Benign Prostatic Hyperplasia, Hx Chronic Renal Failure, Hx Dialysis, Hx Kidney Infection, Hx Kidney Stones, Other Problems/Disorders Musculoskeletal History: Reports: Hx Arthritis, Hx Back Problems, Hx Tendonitis - fingers, 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) Denies: Hx Bursitis, Hx Congenital Bone Abnormalities, Hx Fibromyalgia, Hx Gout, Hx Orthopedic Injury, Hx Osteoporosis, Hx Scoliosis Sensory History: Reports: Hx Cataracts, Hx Glaucoma, Hx Vision Problem, Hx Hearing Problem - hard of hearing Denies: Hx Contacts or Glasses, Hx Eye Injury, Hx Eye Prosthesis, Hx Macular Degeneration, Hx Deafness, Hx Hearing Aid, Other Sensory Impairments Opthamlomology History: Reports: Hx Cataracts, Hx Glaucoma, Hx Vision Problem Denies: Hx Contacts or Glasses, Hx Eye Injury, Hx Eye Prosthesis, Hx Macular Degeneration, Other Sensory Impairments Neurological History: Reports: Hx Headaches Denies: Hx Dementia, Hx Developmental Delay, Hx Migraine, Hx Seizures, Hx Spinal Cord Injury, Hx Transient Ischemic Attacks (TIA), Other Neuro Impairments /Disorders Psychiatric History: Denies: Hx Anxiety, Hx Attention Deficit Hyperactivity Disorder, Hx Eating Disorder, Hx Depression, Hx Panic Disorder, Hx Post Traumatic Stress Disorder, Hx Inpatient Treatment, Hx Community Mental Health Tx, Hx Schizophrenia, Hx Bipolar Disorder, Hx Suicide Attempt, Hx Substance Abuse, Other Psychiatric Issues/Disorders - Cancer History Hx Chemotherapy: No Hx Radiation Therapy: No - Surgical History Surgery Procedure, Year, and Place: KNEE REPLACEMENTS- LEFT KNEE X2, RIGHT KNEE X1;. Hysterectomy;. CATARACTS;. PART OF COLON REMOVED FOR DIVERTICULITIS;. CARPAL TUNNEL Hx Anesthesia Reactions: No - Immunization History Date of Tetanus Vaccine: unk Date of Influenza Vaccine: 2016 Infectious Disease History: Unable to Obtain/Confirm Infectious Disease History: Reports: History Other Infectious Disease - herpes Denies: Hx Clostridium Difficile, Hx Hepatitis, Hx Human Immunodeficiency Virus (HIV), Hx of Known/Suspected MRSA, Hx Shingles, Hx Tuberculosis, Hx Known/ Suspected VRE, Hx Known/Suspected VRSA, Traveled Outside the [place] in Last 30 Days - Family History Known Family History: Positive: Hypertension, Diabetes, Other - Diverticulitis, sickle cell, arthritis Family History: Type II - Social History Alcohol Use: Rare Alcohol Amount: "once a year" Hx Substance Use: No Substance Use Type: Reports: None Hx Tobacco Use: No Smoking Status (MU): Never Smoked Tobacco Have You Smoked in the Last Year: No Review of Systems Negative: Fever Positive: Abdominal Pain Positive: Myalgia - back pain, Other - spasms All Other Systems Reviewed And Are Negative: Yes Physical Exam - Summary Physical Exam Summary: VITAL SIGNS: Reviewed. GENERAL: Patient is an obese female who is lying comfortable in the stretcher in no acute distress. Patient is not in any acute respiratory distress. HEAD AND FACE: No signs of trauma. No ecchymosis, hematomas or skull depressions. No sinus tenderness. EYES: PERRLA, EOMI x 2, No injected conjunctiva, no nystagmus. EARS: Hearing grossly intact. Ear canals and tympanic membranes are within normal limits. MOUTH: Oropharynx within normal limits. NECK: Supple, trachea is midline, no adenopathy, no JVD, no carotid bruit, no c- spine tenderness, neck with full ROM. CHEST: Symmetric, no tenderness at palpation LUNGS: Clear to auscultation bilaterally. No wheezing or crackles. CVS: Regular rate and rhythm, S1 and S2 present, no murmurs or gallops appreciated. ABDOMEN: Soft, RLQ tenderness. No signs of distention. No rebound no guarding, and no masses palpated. Bowel sounds are normal. EXTREMITIES: FROM in all major joints, no edema, no cyanosis or clubbing. Chronic back pain with muscle spasms NEURO: Alert and oriented x 3. No acute neurological deficits. Speech is normal and follows commands. SKIN: Dry and warm. Triage Information Reviewed: Yes Vital Signs On Initial Exam: Initial Vitals Temp Pulse Resp BP Pulse Ox 98.7 F 66 20 169/91 99 08/25/18 10:10 08/25/18 10:10 08/25/18 10:10 08/25/18 10:10 08/25/18 10:10 Vital Signs Reviewed: Yes Diagnostics - Vital Signs Vital Signs Temp Pulse Resp BP Pulse Ox 08/25/18 10:46 60 158/109 96 08/25/18 10:19 58 169/91 99 08/25/18 10:15 66 96 08/25/18 10:10 98.7 F 66 20 169/91 99 - Laboratory Result Diagrams: 08/25/18 11:59 06/02/19 11:59 Lab Statement: Any lab studies that have been ordered have been reviewed, and results considered in the medical decision making process. - Radiology Abdomen XR Radiology Interpretation Completed By: Radiologist Summary of Radiographic Findings: There is no radiographically apparent pathologic bowel dilatation or free. intraperitoneal gas. There is suspected to be a large amount of stool overlying the rectum. though the ramirez of the rectum are hard to distinguish from neighboring soft tissues. Please correlate to potential fecal impaction. ED Physician has reviewed this report. - EKG 1039 Cardiac Rate: NL - 60 BPM EKG Rhythm: Sinus Rhythm EKG Comparison: No Significant Change - 06/21/18 Summary of EKG Findings: LVH, RBBB Back Pain Course/Dx - Course Assessment/Plan: This patient is an 83 year old F brought in by ambulance to [facility] with a chief complaint of back and leg pain with generalized spasms since this morning. Additionally c/o RLQ abdominal pain. Denies fever. Reports back surgery performed by Dr. Calixto in February 2018. She typically take oxycodone for her pain, but has not helped today. Patient is not a patient of the pain clinic. Past medical history significant for type 2 diabetes mellitus , chronic kidney disease, spinal stenosis, coronary disease, hypertension, osteoarthritis, GERD, atrial fibrillation, DVT, sleep apnea, lactic acidosis, syncope, morbid obesity,herpes genitalis and lower GI bleed. In the physical exam the patient doesnt have any significant abnormalities therefore the patient was given 1 Percocet for the pain. Blood test results without any significant abnormality except for BUN at 37 creatinine 1.5 which is her baseline. Abdomen x-ray impression: No radiographic apparent pathology power dilatation or free intraperitoneal gas. Suspect to be a large amount of stool. In the ED course the patient declined the IV fluids. After these medications the patients symptoms have significantly improved. The patient is ambulating, she is eating and drinking. I believe the lower abdominal tenderness secondary to her constipation. Therefore the patient will be taking her medications for pain and constipation home. The patient will be discharged home with follow-up with PCP. Patient is hemolyticus stable alert and oriented 3. - Diagnoses Provider Diagnoses: Muscle spasm, Constipation Discharge - Sign-Out/Discharge Documenting (check all that apply): Patient Departure - discharge Patient Received Moderate/Deep Sedation with Procedure: No - Discharge Plan Condition: Stable Disposition: HOME Patient Education Materials: Muscle Spasm (ED) Referrals: Samantha RAPP-C,Chloe Valenzuela [Primary Care Provider] - 2 Days Additional Instructions: RETURN TO THE EMERGENCY DEPARTMENT FOR CHANGING OR WORSENING SYMPTOMS. - Billing Disposition and Condition Condition: STABLE Disposition: Home - Attestation Statements Document Initiated by Samuel: Yes Documenting Scribe: Joi Rushing Provider For Whom Samuel is Documenting (Include Credential): Panfilo Baxter MD Scribe Attestation: IJoi, scribed for Panfilo Baxter MD on 08/25/18 at 1852. Scribe Documentation Reviewed: Yes Provider Attestation: The documentation as recorded by the Joi spann accurately reflects the service I personally performed and the decisions made by , Panfilo Baxter MD Status of Scribe Document: Viewed
[2018-08-25 12:15] LABS: ABS Basophils 0.1 10^3/ul (0-0.2); ABS Eosinophils 0.2 10^3/ul (0-0.6); ABS Lymphocytes 1.5 10^3/ul (1.0-4.8); ABS Monocytes 0.6 10^3/ul (0-0.8); ABS Neutrophils 6.3 10^3/ul (1.5-7.7); Hematocrit 39 % (35-47); Hemoglobin 12.8 g/dL (12.0-16.0); Lymphocyte % 17.4 %; Mean Corpuscular HGB Conc 33 g/dL (31-36); Mean Corpuscular Hemoglobin 31 pg (27-31); Mean Corpuscular Volume 94 fL (80-97); Mean Platelet Volume 7.9 fL (7.4-10.4); Platelet Count 230 10^3/uL (150-450); Red Blood Count 4.16 10^6 /uL (3.70-4.87); Red Cell Distribution Width 16 % (10.5-15); White Blood Count 8.5 10^3/uL (3.5-10.8)
[2018-08-25 12:28] LABS: Albumin 3.8 g/dL (3.2-5.2); Albumin/Globulin Ratio 1.2 (1-3); BUN/Creatinine Ratio 23.4 (8-20); C Reactive Protein 1.45 mg/L (<8.01); Calcium 9.4 mg/dL (8.6-10.3); EGFR Non-African American 31.4 (>60); Globulin 3.2 g/dL (2-4); Potassium 4.3 mmol/L (3.5-5.0); Total Bilirubin 0.6 mg/dL (0.2-1.0)
[2018-08-25 13:09] VITALS: BP 168/86
== END 2018-08-25 13:19 | disposition home or self-care (01) ==
LOC: ED 10:09
DX: M62.830 Muscle spasm of back (principal); K59.00 Constipation, unspecified; E11.22 Type 2 diabetes mellitus with diabetic chronic kidney disease; N18.9 Chronic kidney disease, unspecified; I25.10 Atherosclerotic heart disease of native coronary artery without angina pectoris; Z96.653 Presence of artificial knee joint, bilateral; Z90.49 Acquired absence of other specified parts of digestive tract; Z88.0 Allergy status to penicillin
CPT/HCPCS: 36415; 74019; 80053; 83690; 85025; 86140; 93005; 99282; A9270-GY

== ENCOUNTER 2018-10-21 17:14 | Emergency (ER) | payer MEDICARE, MEDICAID ==
[2018-10-21] MEDS ORDERED: Sodium Phosphate ADULT ENEMA* 118 ml bottle PR ONE (20:39)
--- NOTE | 2018-10-21 20:54 | ED ---
GI/ HPI - HPI Summary HPI Summary: Patient complains of minimal bowel movement production 5 days. Has attempted stool softeners and manual disimpaction with no improvement. States history of constipation, believes she is constipated. Denies fever, cough, sore throat, CP , SOB, N/V/V abdominal pain, change in urine, vaginal symptoms. - History of Current Complaint Chief Complaint: EDConstipation Time Seen by Provider: 10/21/18 20:24 Stated Complaint: CONSTIPATION PER PT Hx Obtained From: Patient Onset/Duration: Started Days Ago Timing: Constant Current Severity: None Pain Intensity: 0 Aggravating Factor(s): Nothing Alleviating Factor(s): Nothing - Additional Pertinent History Primary Care Physician: ABISAI - Allergy/Home Medications Allergies/Adverse Reactions: Allergies Allergy/AdvReac Type Severity Reaction Status Date / Time Penicillins Allergy rash on Verified 03/12/18 14:32 face PMH/Surg Hx/FS Hx/Imm Hx Endocrine/Hematology History: Reports: Hx Diabetes, Hx Thyroid Disease - hypothyroid Denies: Hx Anticoagulant Therapy, Hx Blood Disorders, Hx Blood Transfusions, Hx Bone Marrow Disease, Hx Systemic Lupus Erythematosus, Hx Sickle Cell Disease , Hx Anemia, Hx Unexplained Bleeding Cardiovascular History: Reports: Hx Angina, Hx Angioplasty, Hx Coronary Artery Disease, Hx Deep Vein Thrombosis, Hx Hypercholesterolemia, Hx Hypertension, Hx Myocardial Infarction, Other Cardiovascular Problems/Disorders - a fib Denies: Hx Aneurysm, Hx Auto Implanted Cardiovert Defib, Hx Cardiac Arrest, Hx Cardiomegaly, Hx Congenital Heart Disease, Hx Congestive Heart Failure, Hx Hypotension, Hx Pacemaker/ICD, Hx Peripheral Vascular Disease, Hx Rheumatic Fever, Hx Syncope, Hx Valvular Heart Disease Respiratory History: Reports: Hx Sleep Apnea - states hx of but does not use CPAP at home Denies: Hx Asthma, Hx Chronic Bronchitis, Hx Chronic Obstructive Pulmonary Disease (COPD), Hx Cystic Fibrosis, Hx Lung Cancer, Hx Pleural Effusion, Hx Pneumonia, Hx Pulmonary Edema, Hx Pulmonary Embolism, Hx Seasonal Allergies, Other Respiratory Problems/Disorders GI History: Reports: Hx Diverticulosis, Hx Gastroesophageal Reflux Disease, Hx Gastrointestinal Bleed Denies: Hx Cirrhosis, Hx Crohn's Disease, Hx Gall Bladder Disease, Hx Hiatal Hernia, Hx Irritable Bowel, Hx Jaundice, Hx Obstructive Bowel, Hx Ileostomy, Hx Pyloric Stenosis, Hx Ulcer, Other GI Disorders History: Denies: Hx Acute Renal Failure, Hx Benign Prostatic Hyperplasia, Hx Chronic Renal Failure, Hx Dialysis, Hx Kidney Infection, Hx Kidney Stones, Other Problems/Disorders Musculoskeletal History: Reports: Hx Arthritis, Hx Back Problems, Hx Tendonitis - fingers, 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) Denies: Hx Bursitis, Hx Congenital Bone Abnormalities, Hx Fibromyalgia, Hx Gout, Hx Orthopedic Injury, Hx Osteoporosis, Hx Scoliosis Sensory History: Reports: Hx Cataracts, Hx Glaucoma, Hx Vision Problem, Hx Hearing Problem - hard of hearing Denies: Hx Contacts or Glasses, Hx Eye Injury, Hx Eye Prosthesis, Hx Macular Degeneration, Hx Deafness, Hx Hearing Aid, Other Sensory Impairments Opthamlomology History: Reports: Hx Cataracts, Hx Glaucoma, Hx Vision Problem Denies: Hx Contacts or Glasses, Hx Eye Injury, Hx Eye Prosthesis, Hx Macular Degeneration, Other Sensory Impairments Neurological History: Reports: Hx Headaches Denies: Hx Dementia, Hx Developmental Delay, Hx Migraine, Hx Seizures, Hx Spinal Cord Injury, Hx Transient Ischemic Attacks (TIA), Other Neuro Impairments /Disorders Psychiatric History: Denies: Hx Anxiety, Hx Attention Deficit Hyperactivity Disorder, Hx Eating Disorder, Hx Depression, Hx Panic Disorder, Hx Post Traumatic Stress Disorder, Hx Inpatient Treatment, Hx Community Mental Health Tx, Hx Schizophrenia, Hx Bipolar Disorder, Hx Suicide Attempt, Hx Substance Abuse, Other Psychiatric Issues/Disorders - Cancer History Hx Chemotherapy: No Hx Radiation Therapy: No - Surgical History Surgery Procedure, Year, and Place: KNEE REPLACEMENTS- LEFT KNEE X2, RIGHT KNEE X1;. Hysterectomy;. CATARACTS;. PART OF COLON REMOVED FOR DIVERTICULITIS;. CARPAL TUNNEL Hx Anesthesia Reactions: No - Immunization History Date of Tetanus Vaccine: unk Date of Influenza Vaccine: 2016 Immunizations Up to Date: Yes Infectious Disease History: No Infectious Disease History: Reports: History Other Infectious Disease - herpes Denies: Hx Clostridium Difficile, Hx Hepatitis, Hx Human Immunodeficiency Virus (HIV), Hx of Known/Suspected MRSA, Hx Shingles, Hx Tuberculosis, Hx Known/ Suspected VRE, Hx Known/Suspected VRSA, Traveled Outside the [place] in Last 30 Days - Family History Known Family History: Positive: Hypertension, Diabetes, Other - Diverticulitis, sickle cell, arthritis Family History: Type II - Social History Alcohol Use: Rare Alcohol Amount: "once a year" Hx Substance Use: No Substance Use Type: Reports: None Hx Tobacco Use: No Smoking Status (MU): Never Smoked Tobacco Have You Smoked in the Last Year: No Review of Systems Constitutional: Negative Eyes: Negative ENT: Negative Cardiovascular: Negative Respiratory: Negative Gastrointestinal: Negative Genitourinary: Negative Musculoskeletal: Negative Skin: Negative Neurological: Negative Psychological: Normal All Other Systems Reviewed And Are Negative: Yes Physical Exam - Summary Physical Exam Summary: Abdomen soft nontender. Triage Information Reviewed: Yes Vital Signs On Initial Exam: Initial Vitals Temp Pulse Resp BP Pulse Ox 987.0 F 76 18 116/73 96 10/21/18 17:39 10/21/18 17:39 10/21/18 17:39 10/21/18 17:39 10/21/18 17:39 Vital Signs Reviewed: Yes Appearance: Positive: Well-Appearing Skin: Positive: Warm Head/Face: Positive: Normal Head/Face Inspection Eyes: Positive: Normal Neck: Positive: Supple Respiratory/Lung Sounds: Positive: Clear to Auscultation Cardiovascular: Positive: Normal Abdomen Description: Positive: Nontender Musculoskeletal: Positive: Normal Neurological: Positive: Normal Psychiatric: Positive: Normal AVPU Assessment: Alert - Augustin Coma Scale Best Eye Response: 4 - Spontaneous Best Motor Response: 6 - Obeys Commands Best Verbal Response: 5 - Oriented Coma Scale Total: 15 Diagnostics - Vital Signs Vital Signs Temp Pulse Resp BP Pulse Ox 10/21/18 19:41 98.2 F 68 16 134/88 98 10/21/18 17:39 987.0 F 76 18 116/73 96 - Laboratory Lab Statement: Any lab studies that have been ordered have been reviewed, and results considered in the medical decision making process. GIGU Course/Dx - Course Course Of Treatment: Patient complains of minimal bowel movement production 5 days. Has attempted stool softeners and manual disimpaction with no improvement. States history of constipation, believes she is constipated. Denies fever, cough, sore throat, CP, SOB, N/V/V abdominal pain, change in urine , vaginal symptoms. Vital signs within normal limits. Patient was manually disimpacted by this provider. Produced large bowel movement after application of soap suds enema. - Diagnoses Provider Diagnoses: Constipation Discharge - Sign-Out/Discharge Documenting (check all that apply): Patient Departure Patient Received Moderate/Deep Sedation with Procedure: No - Discharge Plan Condition: Stable Disposition: HOME Patient Education Materials: Constipation (ED) Referrals: Chloe Singh PA [Primary Care Provider] - Additional Instructions: Follow-up with primary care for management of constipation. Return to the ED for any new or worsening symptoms. - Billing Disposition and Condition Condition: STABLE Disposition: Home
[2018-10-21 22:50] VITALS: BP 164/97
== END 2018-10-21 22:50 | disposition home or self-care (01) ==
LOC: ED 17:14
DX: K59.00 Constipation, unspecified (principal); Z88.0 Allergy status to penicillin; E11.9 Type 2 diabetes mellitus without complications; E03.9 Hypothyroidism, unspecified; I25.119 Atherosclerotic heart disease of native coronary artery with unspecified angina pectoris; E78.00 Pure hypercholesterolemia, unspecified; I10 Essential (primary) hypertension; I25.2 Old myocardial infarction
CPT/HCPCS: 99283

== ENCOUNTER 2019-03-07 11:38 | Inpatient (IN) | payer MEDICARE, MEDICAID ==
[2019-03-07] MEDS ORDERED: Ondansetron INJ* 2 MG/ML VIAL IV ONE (12:34)
[2019-03-07] MEDS ORDERED: NS 0.9% 1000 ML** 1,000 ML IV ONE ×2 (12:34→15:08)
--- NOTE | 2019-03-07 12:36 | ED ---
Abdominal Pain/Female - HPI Summary HPI Summary: Patient is an 83 y/o F presenting to the ED via EMS for a chief complaint of diffuse abdominal pain. Patient also notes constipation, generalized body aches , shortness of breath, urinary frequency, nausea, and vomiting for the last 2 days. She also reports numbness and paresthesia in the bilateral LE from a previous back surgery that is a baseline. Patient rates her abdominal pain as 7/ 10 in severity that radiates to the bilateral LE. She denies fever or diarrhea. She took milk of magnesia without relief of her symptoms. She denies any aggravating or alleviating factors. PMHx is significant for diabetes mellitus, hypercholesterolemia, and hypertension. PSHx is significant for back surgery. - History of Current Complaint Chief Complaint: EDWeakness Stated Complaint: GENERAL ILLNESS PER EMS Time Seen by Provider: 03/07/19 12:22 Hx Obtained From: Patient Onset/Duration: Sudden Onset, Lasting Days, Still Present Timing: Constant Severity Initially: Severe Severity Currently: Severe Pain Intensity: 7 Pain Scale Used: 0-10 Numeric Location: Diffuse Radiates: Yes Radiates to: Other - Bilateral LE Aggravating Factor(s): Nothing Alleviating Factor(s): Nothing, Other: - No relief with milk of magnesia Associated Signs and Symptoms: Positive: Constipation, Urinary Symptoms - Urinary frequency, Nausea, Vomiting. Negative: Fever, Diarrhea Allergies/Adverse Reactions: Allergies Allergy/AdvReac Type Severity Reaction Status Date / Time Penicillins Allergy rash on Verified 03/07/19 12:19 face Home Medications: Home Medications Atorvastatin* [Lipitor 20 MG*] 20 mg PO QPM 03/07/19 [History Confirmed 03/07/19 ] DULoxetine DR CAP* [Cymbalta CAP*] 30 mg PO DAILY 03/07/19 [History Confirmed ] Furosemide TAB* [Lasix TAB*] 20 mg PO DAILY 03/07/19 [History Confirmed 03/07/19 ] Latanoprost 0.005%* [Xalatan 0.005%*] 1 drop BOTH EYES QPM 03/07/19 [History Confirmed 03/07/19] hydrALAZINE TAB* [Apresoline TAB*] 10 mg PO TID 03/07/19 [History Confirmed ] oxyCODONE/Acetamin 5/325 MG* [Percocet 5/325 TAB*] 1 - 2 tab PO TID PRN MDD 6 tabs 03/07/19 [History Confirmed 03/07/19] PMH/Surg Hx/FS Hx/Imm Hx Previously Healthy: Yes Endocrine/Hematology History: Reports: Hx Diabetes, Hx Thyroid Disease - hypothyroid Denies: Hx Anticoagulant Therapy, Hx Blood Disorders, Hx Blood Transfusions, Hx Bone Marrow Disease, Hx Systemic Lupus Erythematosus, Hx Sickle Cell Disease , Hx Anemia, Hx Unexplained Bleeding Cardiovascular History: Reports: Hx Angina, Hx Angioplasty, Hx Coronary Artery Disease, Hx Deep Vein Thrombosis, Hx Hypercholesterolemia, Hx Hypertension, Hx Myocardial Infarction, Other Cardiovascular Problems/Disorders - a fib Denies: Hx Aneurysm, Hx Auto Implanted Cardiovert Defib, Hx Cardiac Arrest, Hx Cardiomegaly, Hx Congenital Heart Disease, Hx Congestive Heart Failure, Hx Hypotension, Hx Pacemaker/ICD, Hx Peripheral Vascular Disease, Hx Rheumatic Fever, Hx Syncope, Hx Valvular Heart Disease Respiratory History: Reports: Hx Sleep Apnea - states hx of but does not use CPAP at home Denies: Hx Asthma, Hx Chronic Bronchitis, Hx Chronic Obstructive Pulmonary Disease (COPD), Hx Cystic Fibrosis, Hx Lung Cancer, Hx Pleural Effusion, Hx Pneumonia, Hx Pulmonary Edema, Hx Pulmonary Embolism, Hx Seasonal Allergies, Other Respiratory Problems/Disorders GI History: Reports: Hx Diverticulosis, Hx Gastroesophageal Reflux Disease, Hx Gastrointestinal Bleed Denies: Hx Cirrhosis, Hx Crohn's Disease, Hx Gall Bladder Disease, Hx Hiatal Hernia, Hx Irritable Bowel, Hx Jaundice, Hx Obstructive Bowel, Hx Ileostomy, Hx Pyloric Stenosis, Hx Ulcer, Other GI Disorders History: Denies: Hx Acute Renal Failure, Hx Benign Prostatic Hyperplasia, Hx Chronic Renal Failure, Hx Dialysis, Hx Kidney Infection, Hx Kidney Stones, Other Problems/Disorders Musculoskeletal History: Reports: Hx Arthritis, Hx Back Problems, Hx Tendonitis - fingers, 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) Denies: Hx Bursitis, Hx Congenital Bone Abnormalities, Hx Fibromyalgia, Hx Gout, Hx Orthopedic Injury, Hx Osteoporosis, Hx Scoliosis Sensory History: Reports: Hx Cataracts, Hx Glaucoma, Hx Vision Problem, Hx Hearing Problem - hard of hearing Denies: Hx Contacts or Glasses, Hx Eye Injury, Hx Eye Prosthesis, Hx Legally Blind, Hx Macular Degeneration, Hx Deafness, Hx Hearing Aid, Other Sensory Impairments Opthamlomology History: Reports: Hx Cataracts, Hx Glaucoma, Hx Vision Problem Denies: Hx Contacts or Glasses, Hx Eye Injury, Hx Eye Prosthesis, Hx Legally Blind, Hx Macular Degeneration, Other Sensory Impairments EENT History: Denies: Hx Deafness Neurological History: Reports: Hx Headaches Denies: Hx Dementia, Hx Developmental Delay, Hx Migraine, Hx Seizures, Hx Spinal Cord Injury, Hx Transient Ischemic Attacks (TIA), Other Neuro Impairments /Disorders Psychiatric History: Denies: Hx Anxiety, Hx Attention Deficit Hyperactivity Disorder, Hx Eating Disorder, Hx Depression, Hx Panic Disorder, Hx Post Traumatic Stress Disorder, Hx Inpatient Treatment, Hx Community Mental Health Tx, Hx Schizophrenia, Hx Bipolar Disorder, Hx Suicide Attempt, Hx Substance Abuse, Other Psychiatric Issues/Disorders - Cancer History Hx Chemotherapy: No Hx Radiation Therapy: No - Surgical History Surgical History: Yes Surgery Procedure, Year, and Place: KNEE REPLACEMENTS- LEFT KNEE X2, RIGHT KNEE X1;. Hysterectomy;. CATARACTS;. PART OF COLON REMOVED FOR DIVERTICULITIS;. CARPAL TUNNEL. Back surgery 02/2018 Hx Anesthesia Reactions: No - Immunization History Date of Tetanus Vaccine: unk Date of Influenza Vaccine: 2016 Infectious Disease History: No Infectious Disease History: Reports: History Other Infectious Disease - herpes Denies: Hx Clostridium Difficile, Hx Hepatitis, Hx Human Immunodeficiency Virus (HIV), Hx of Known/Suspected MRSA, Hx Shingles, Hx Tuberculosis, Hx Known/ Suspected VRE, Hx Known/Suspected VRSA, Traveled Outside the [place] in Last 30 Days - Family History Known Family History: Positive: Hypertension, Diabetes, Other - Diverticulitis, sickle cell, arthritis Family History: Type II - Social History Occupation: Retired Lives: With Family Alcohol Use: Rare Alcohol Amount: "once a year" Hx Substance Use: No Substance Use Type: Reports: None Hx Tobacco Use: No Smoking Status (MU): Never Smoked Tobacco Have You Smoked in the Last Year: No Review of Systems Negative: Fever Positive: Shortness Of Breath Positive: Abdominal Pain - Diffuse, Vomiting, Nausea, Other - Positive constipation. Negative: Diarrhea Positive: frequency - Urinary Positive: Myalgia - Generalized body aches Positive: Paresthesia - Bilateral LE at baseline, Numbness - Bilateral LE at baseline All Other Systems Reviewed And Are Negative: Yes Physical Exam - Summary Physical Exam Summary: VITAL SIGNS: Reviewed. GENERAL: Patient is a well-developed and nourished female who is lying comfortable in the stretcher. Patient is not in any acute respiratory distress. HEAD AND FACE: Normocephalic and atraumatic. EYES: PERRLA, EOMI x 2, No injected conjunctiva. EARS: Hearing grossly intact. Ear canals and tympanic membranes are WNL. MOUTH: Oropharynx within normal limits. NECK: Supple, trachea is midline, no adenopathy, no JVD. CHEST: Symmetric, no tenderness at palpation. LUNGS: Clear to auscultation bilaterally. No wheezing or crackles. CVS: RRR, S1 and S2 present, no murmurs or gallops appreciated. ABDOMEN: Soft. No signs of distention. Positive bowel sounds. No rebound, no guarding, and no masses palpated. No abdominal bruit or pulsations. Diffusely tender throughout the abdomen. EXTREMITIES: FROM in all major joints, no edema, no cyanosis or clubbing. NEURO: Alert and oriented x 3. No acute neurological deficits. Speech is normal. SKIN: Dry and warm. Triage Information Reviewed: Yes Vital Signs On Initial Exam: Initial Vitals Temp Pulse Resp BP Pulse Ox 98.3 F 71 16 129/83 96 03/07/19 12:14 03/07/19 12:14 03/07/19 12:14 03/07/19 12:14 03/07/19 12:14 Vital Signs Reviewed: Yes Procedures - Sedation Patient Received Moderate/Deep Sedation with Procedure: No Diagnostics - Vital Signs Vital Signs Temp Pulse Resp BP Pulse Ox 03/07/19 12:14 98.3 F 71 16 129/83 96 - Laboratory Result Diagrams: 03/07/19 12:34 03/07/19 12:34 Lab Statement: Any lab studies that have been ordered have been reviewed, and results considered in the medical decision making process. - Radiology Abdomen X-ray Radiology Interpretation Completed By: Radiologist Summary of Radiographic Findings: Abdomen X-ray IMPRESSION: No free air or obstruction is noted. Reviewed by Dr. Baxter. - CT Abdomen/Pelvis CT CT Interpretation Completed By: Radiologist Summary of CT Findings: Abdomen/Pelvis CT IMPRESSION: Focally dilated loop of bowel just proximal to the colonic anastomosis of the sigmoid colon just under the anterior abdomen. This may represent a focal ileus. No free air is noted. No drainable fluid collections are noted. Dependent changes are noted in the lung cardenas. Reviewed and interpreted by Dr. Baxter. - EKG 12:56 Cardiac Rate: NL - 64 BPM EKG Rhythm: Sinus Rhythm ST Segment: Normal Ectopy: None Summary of EKG Findings: EKG at 12:56 shows 64 BPM with normal sinus rhythm, no ST elevations, RBBB, no STEMI. Reviewed and interpreted by Dr. Baxter. Re-Evaluation - Re-Evaluation First Eval Re-Evaluation Time: 17:41 Change: Unchanged Comment: At 17:41, patient is pending admission to [facility]. Abdominal Pain Fem Course/Dx - Course Course Of Treatment: Patient is an 83 y/o F presenting to the ED via EMS for a chief complaint of diffuse abdominal pain. Patient also notes constipation, generalized body aches, shortness of breath, urinary frequency, nausea, and vomiting for the last 2 days. She also reports numbness and paresthesia in the bilateral LE from a previous back surgery that is a baseline. Patient rates her abdominal pain as 7/10 in severity that radiates to the bilateral LE. She denies fever or diarrhea. She took milk of magnesia without relief of her symptoms. She denies any aggravating or alleviating factors. PMHx is significant for diabetes mellitus, hypercholesterolemia, and hypertension. PSHx is significant for back surgery. In the ED course the patient was placed in a cardiac monitor technician, IV access was obtained, and IV fluids started. Patient was given Zofran, and Morphine for the pain. Blood work without a significant abnormality except for BUN 26, BUN/Creatinine ratio 21.3, and glucose 111. Abdomen x-ray impression: No free air or obstruction is noted. Abdominal and pelvic CT IMPRESSION: Focally dilated loop of bowel just proximal to the colonic anastomosis of the sigmoid colon just under the anterior abdomen. This may represent a focal ileus. No free air is noted. No drainable fluid collections are noted. Dependent changes are noted in the lung cardenas. Patient continues to have slight pain, but still has decreased appetite. I discussed my physical exam and test results with Dr. Elizabeth Iglesias from the hospitalist services and she agrees to admit the patient to her services. The patient is hemodynamically stable alert and oriented x 3. - Diagnoses Provider Diagnoses: Lower abdominal pain, Ileus - Provider Notifications Discussed Care Of Patient With: Elizabeth Iglesias - At 17:37, Dr. Elizabeth L. Dill agrees to admit the patient to [facility] with a diagnosis of lower abdominal pain and ileus. Time Discussed With Above Provider: 17:37 Instructed by Provider To: Admit As Inpatient Discharge ED - Sign-Out/Discharge Documenting (check all that apply): Patient Departure - Admit - Discharge Plan Condition: Stable Disposition: ADMITTED TO [facility] - Billing Disposition and Condition Condition: STABLE Disposition: Admitted to [facility] - Attestation Statements Document Initiated by Chaoibe: Yes Documenting Scribe: Radha Briceño Provider For Whom Samuel is Documenting (Include Credential): Panfilo Baxter MD Scribe Attestation: Radha Mir, scribed for Panfilo Baxter MD on 03/07/19 at 2131. Scribe Documentation Reviewed: Yes Provider Attestation: The documentation as recorded by the Radha spann accurately reflects the service I personally performed and the decisions made by , Panfilo Baxter MD Status of Scribe Document: Viewed
[2019-03-07 12:46] LABS: ABS Eosinophils 0.1 10^3/ul (0-0.6); ABS Lymphocytes 0.8 10^3/ul (1.0-4.8); ABS Monocytes 0.5 10^3/ul (0-0.8); ABS Neutrophils 7.7 10^3/ul (1.5-7.7); Eosinophil % 0.9 %; Hematocrit 37 % (35-47); Hemoglobin 12.5 g/dL (12.0-16.0); Lymphocyte % 8.9 %; Mean Corpuscular HGB Conc 34 g/dL (31-36); Mean Corpuscular Hemoglobin 32 pg (27-31); Mean Corpuscular Volume 96 fL (80-97); Mean Platelet Volume 7.8 fL (7.4-10.4); Platelet Count 249 10^3/uL (150-450); Red Cell Distribution Width 14 % (10-15); White Blood Count 9.2 10^3/uL (3.5-10.8)
[2019-03-07 13:06] LABS: Albumin/Globulin Ratio 1.4 (1-3); BUN/Creatinine Ratio 21.3 (8-20); Calcium 9.2 mg/dL (8.6-10.3); EGFR African American 51.2 (>60); EGFR Non-African American 42.3 (>60); Globulin 2.8 g/dL (2-4); Magnesium 2.5 mg/dL (1.9-2.7); Potassium 4.2 mmol/L (3.5-5.0); Total Bilirubin 0.8 mg/dL (0.2-1.0); Total Protein 6.8 g/dL (6.4-8.9); Troponin I 0.01 ng/mL (<0.03)
[2019-03-07 13:30] LABS: TSH (Thyroid Stimulating Horm) 1.66 mcIU/mL (0.34-5.60)
[2019-03-07 15:28] LABS: Urine Appearance Cloudy; Urine Bilirubin Negative (Negative); Urine Blood 2+ (Negative); Urine Color Yellow; Urine Glucose Negative (Negative); Urine Ketones Negative (Negative); Urine Nitrite Negative (Negative); Urine Protein Negative (Negative); Urine Specific Gravity 1.009 (1.010-1.030); Urine Urobilinogen Negative (Negative)
[2019-03-07 15:34] LABS: Urine Bacteria 1+ (Absent); Urine Red Blood Cell 2+(6-10/hpf) (Absent); Urine Squamous Epithelial Cell Present (Absent); Urine White Blood Cell 3+(>20/hpf) (Absent)
[2019-03-07] MEDS ORDERED: Iodixanol* (CONTRAST) 320 MG/ML 100 ML SDV IV ONE (15:57)
[2019-03-07] MEDS ORDERED: Morphine 4 MG/ML VIAL (1 ml) 4 MG/ML VIAL IV ONE (17:35)
[2019-03-07] MEDS ORDERED: Magnesium Hydroxide LIQ* 30 ML UDC PO PRN (18:38)
[2019-03-07] MEDS ORDERED: Polyethylene Glycol 3350* 17 GM PACKET PO PRN (18:38)
[2019-03-07] MEDS ORDERED: Senna TAB 8.6 mg* TAB PO PRN (18:38)
[2019-03-07] MEDS ORDERED: cefTRIAXone(*) 1 GM in NS 0.9% 50 ML* 50 ML IVPB ONE (19:00)
[2019-03-07] MEDS: Acetaminophen TAB* 325 MG PO PRN (19:08)
[2019-03-07] MEDS: NS 0.9% 1000 ML** 1,000 ML IV SCH (20:23)
[2019-03-07] MEDS: Gabapentin CAP(*) 100 MG PO SCH (20:24)
[2019-03-07] MEDS: Baclofen TAB* 10 MG PO SCH (20:24)
[2019-03-07] MEDS: hydrALAZINE TAB* 10 MG PO SCH (20:24)
[2019-03-07] MEDS: Pantoprazole TAB * 40 MG TAB PO SCH (20:24)
[2019-03-07] MEDS: Docusate CAP* 100 MG PO SCH (20:25)
[2019-03-07] MEDS: Heparin VIAL(*) 5000 UNITS/ML VIAL (FIVE THOUSAND) SUBCUT SCH (20:25)
[2019-03-07] MEDS: Magnesium Hydroxide LIQ* 30 ML UDC PO SCH (20:25)
--- NOTE | 2019-03-07 21:09 | HP ---
CC: BLACK Pompa; Dr. Carpio * HISTORY AND PHYSICAL: DATE OF ADMISSION: 03/07/19. PRIMARY CARE PROVIDER: BLACK Pompa. ASTROPHYSICS TEACHER: Dr. Carpio, from Nephrology. CHIEF COMPLAINT: Feeling unwell with some nausea and generalized weakness. HISTORY OF PRESENT ILLNESS: Neris Aguirre is an 83-year-old female, who stated that she has a visiting nurse to come over to her apartment at [facility] and visits her once a month to check out. She stated that her blood pressure was good and her heart rate was good, but then it was noted that the patient was weak and she felt nauseated. She recommended for the patient to come into the ED for evaluation. Ms. Aguirre denies any history of abdominal pain, although she does have a history of chronic constipation and the last time she had a bowel movement was 2 days ago. She denies any urinary symptoms. She has been nauseated today and stated that she is burping a lot. She denies any chest pain or shortness of breath. The patient's urinalysis is positive for likely UTI that may be because of her nausea. Interestingly, now she was noted to have a second-degree heart block Mobitz type 1 and she is asymptomatic from this standpoint. Despite that the patient did not have abdominal pain, CT of the abdomen and pelvis was obtained in the ED and showed, impression: "Focally dilated loop of bowel just proximal to the colonic anastomosis of the sigmoid colon just under the anterior abdomen. This may represent a focal ileus." The patient is going to be placed on overnight observation with a diagnosis of generalized weakness and UTI. PAST MEDICAL HISTORY: 1. History of right bundle-branch block. 2. History of coronary artery disease. 3. History of diabetes, diet controlled. 4. Hypertension. 5. Obstructive sleep apnea. 6. Chronic kidney disease, stage 3. 7. Obesity. 8. Chronic left-sided shoulder pain. 9. Carpal tunnel release. 10. Partial colectomy for diverticulitis. 11. Bilateral total knee replacements. 12. Cataract surgery bilaterally. 13. Hysterectomy. 14. Laminectomy for T10-T11 in February 2018. 15. History of provoked DVT remotely. MEDICATIONS: At home include: 1. Lasix 20 mg daily. 2. Senna 1 tablet q.a.m. 3. Milk of magnesia 30 mL on a p.r.n. basis. 4. Xalatan eyedrop 1 drop both eyes q.p.m. 5. Ferrous sulfate 325 mg daily. 6. Colace 100 mg q.a.m. 7. Prolia 60 mg subcutaneously every 6 months. 8. Cod liver oil 1 capsule daily. 9. Calcium carbonate 600 mg b.i.d. 10. Baclofen 10 mg b.i.d. p.r.n. 11. Aspirin 81 mg daily. 12. Nitroglycerin 1 sublingual on a p.r.n. basis. 13. Multivitamin 1 tablet daily. 14. Diltiazem CD 240 mg daily. 15. Lisinopril 10 mg daily. 16. Gabapentin 100 mg b.i.d. 17. Valtrex 500 mg b.i.d. p.r.n. 18. Potassium chloride 10 mEq q.a.m. 19. Hydralazine 10 mg 3 times a day. 20. Lipitor 20 mg daily. 21. Duloxetine 30 mg daily. 22. Oxycodone with acetaminophen 5/325 mg 1 tablet t.i.d., up to 6 tablets a day. 23. Omeprazole 20 mg daily. ALLERGIES: PENICILLIN causes rash. FAMILY HISTORY: Positive for both parents dying of unknown cancer. SOCIAL HISTORY: The patient lives by herself in [facility]. Denies any tobacco, alcohol or drug use. Her surrogate is her son, Stephen Perdomo. REVIEW OF SYSTEMS: Please see history of present illness. All the remaining 12 systems were reviewed with the patient and were otherwise negative. PHYSICAL EXAMINATION GENERAL: The patient is a very pleasant 83-year-old female, who is in no acute distress. The patient is alert and oriented x3. VITAL SIGNS: Blood pressure 133/80, heart rate of 58 and regular, respiratory rate 13, oxygen saturation 95% on room air, temperature of 98.3. HEENT: Head atraumatic, normocephalic. Eyes: Pupils are equal and reactive to light and accommodation. Oropharynx is clear. Mucosa moist. NECK: Supple. No JVD. No bruits bilaterally. RESPIRATORY: Clear to auscultation bilaterally. CARDIOVASCULAR: Regular rate and rhythm. No murmur. ABDOMEN: Soft, nontender. Bowel sounds are present in all 4 quadrants. EXTREMITIES: There is trace bilateral ankle edema. Pulses +2 bilaterally. No clubbing or cyanosis. NEUROLOGIC: On neuro evaluation, speech clear. Cranial nerves II through XII grossly intact. Motor strength is 5/5 bilaterally. PSYCHIATRIC: Oriented x3 with no evidence of anxiety or depression. DIAGNOSTIC STUDIES/LAB DATA: Shows sodium of 136, potassium 4.2, chloride 102 , carbon dioxide 27, BUN 26, creatinine 1.22. Liver function tests are unremarkable. Lactic acid of 0.8, TSH of 1.66. White blood cell count of 9.2, hemoglobin of 12.5, hematocrit of 37, and platelets of 249,000. Urinalysis positive for +2 blood, esterase, wbc's, rbc's, and +[address] of the abdomen and pelvis was quoted in the history of present illness. Abdomen x-ray, impression: "No free air or obstruction noted." The patient's EKG showed known right bundle-branch block with a heart rate of 64 beats per minute. The changes appeared to be chronic. It is also noted on evaluation of the patient's rhythm strips, the patient does have second-degree heart block Mobitz type 1, and occasionally she drops a beat, but is asymptomatic from this standpoint. ASSESSMENT AND PLAN: 1. In regards to the patient's vague symptoms of nausea and generalized weakness, I suspect this is a symptom of urinary tract infection. She is going to be placed on ceftriaxone and gentle hydration. 2. In regards to the patient's second degree heart block type 1, the patient is asymptomatic from this standpoint. No pacemaker is indicated. Nevertheless , we will observe on telemetry monitored bed for the time being. The patient's TSH is within normal limits and I will continue her on Cardizem as previously used. 2. In regards to the patient's questionable ileus noted on CT, the patient has no symptoms of ileus. She is constipated. She is going to be placed on bowel regimen and will continue observation. She has no abdominal pain at this point. TIME SPENT: Approximately, 65 minutes were spent on the admission of this patient, more than half that time was spent [id number] with the patient during the interview and physical exam. [id number]/[facility] #: [id number] [facility] H[facility]PITALUrszula
[2019-03-08] MEDS: oxyCODONE/Acetamin 5/325 MG* TAB PO PRN ×4 (01:12→19:32)
[2019-03-08] MEDS: Heparin VIAL(*) 5000 UNITS/ML VIAL (FIVE THOUSAND) SUBCUT SCH ×3 (05:51→22:02)
[2019-03-08 06:21] LABS: ABS Eosinophils 0.1 10^3/ul (0-0.6); ABS Lymphocytes 1.2 10^3/ul (1.0-4.8); ABS Monocytes 0.6 10^3/ul (0-0.8); ABS Neutrophils 6.9 10^3/ul (1.5-7.7); Eosinophil % 1.5 %; Hematocrit 34 % (35-47); Hemoglobin 11.1 g/dL (12.0-16.0); Lymphocyte % 13.1 %; Mean Corpuscular HGB Conc 33 g/dL (31-36); Mean Corpuscular Hemoglobin 32 pg (27-31); Mean Corpuscular Volume 97 fL (80-97); Mean Platelet Volume 7.6 fL (7.4-10.4); Platelet Count 230 10^3/uL (150-450); Red Blood Count 3.44 10^6 /uL (3.70-4.87); Red Cell Distribution Width 14 % (10-15); White Blood Count 8.8 10^3/uL (3.5-10.8)
[2019-03-08 06:36] LABS: BUN/Creatinine Ratio 15.7 (8-20); Calcium 7.9 mg/dL (8.6-10.3); EGFR African American 45.9 (>60); Potassium 3.9 mmol/L (3.5-5.0)
[2019-03-08] MEDS: Gabapentin CAP(*) 100 MG PO SCH ×2 (09:10→22:02)
[2019-03-08] MEDS: Aspirin EC TAB* 81 MG TAB.EC PO SCH (09:10)
[2019-03-08] MEDS: Baclofen TAB* 10 MG PO SCH ×2 (09:10→22:03)
[2019-03-08] MEDS: Diltiazem CD CAP* 240 MG PO SCH (09:10)
[2019-03-08] MEDS: Furosemide TAB* 20 MG PO SCH (09:10)
[2019-03-08] MEDS: Docusate CAP* 100 MG PO SCH ×2 (09:11→22:25)
[2019-03-08] MEDS: DULoxetine DR CAP* 30 MG CAP.DR PO SCH (09:11)
[2019-03-08] MEDS: Potassium Chlor TAB* 10 MEQ TAB.ER PO SCH (09:11)
[2019-03-08] MEDS: Magnesium Hydroxide LIQ* 30 ML UDC PO SCH (09:11)
[2019-03-08] MEDS: Lisinopril TAB* 10 MG PO SCH (09:11)
[2019-03-08] MEDS: hydrALAZINE TAB* 10 MG PO SCH ×3 (09:12→22:02)
[2019-03-08] MEDS: Pantoprazole TAB * 40 MG TAB PO SCH ×2 (09:12→22:03)
[2019-03-08] MEDS: Acetaminophen TAB* 325 MG PO PRN ×3 (09:22→22:11)
[2019-03-08] MEDS: NS 0.9% 1000 ML** 1,000 ML IV SCH (09:43)
--- NOTE | 2019-03-08 15:57 | PN ---
Subjective Date of Service: 03/08/19 Interval History: reports feeling a little better but still very tired Objective Active Medications: Acetaminophen (Tylenol Tab*) 650 mg PO Q4H PRN PRN Reason: PAIN-MILD/TEMP >/= 100.4 Last Admin: 03/08/19 09:22 Dose: 650 mg Al Hydrox/Mg Hydrox/Simethicone (Maalox Plus*) 30 ml PO Q6H PRN PRN Reason: INDIGESTION Aspirin (Aspirin Ec Tab*) 81 mg PO QAM [facility] Last Admin: 03/08/19 09:10 Dose: 81 mg Atorvastatin Calcium (Lipitor*) 20 mg PO QPM [facility] Baclofen (Lioresal Tab*) 10 mg PO BID [facility] Last Admin: 03/08/19 09:10 Dose: 10 mg Diltiazem HCl (Cardizem Cd Cap*) 240 mg PO QAM [facility] Last Admin: 03/08/19 09:10 Dose: 240 mg Docusate Sodium (Colace Cap*) 100 mg PO BID [facility] Last Admin: 03/08/19 09:11 Dose: 100 mg Duloxetine HCl (Cymbalta Cap*) 30 mg PO DAILY [facility] Last Admin: 03/08/19 09:11 Dose: 30 mg Furosemide (Lasix Tab*) 20 mg PO DAILY [facility] Last Admin: 03/08/19 09:10 Dose: 20 mg Gabapentin (Neurontin Cap(*)) 100 mg PO BID [facility] Last Admin: 03/08/19 09:10 Dose: 100 mg Heparin Sodium (Porcine) (Heparin Vial(*)) 5,000 units SUBCUT Q8HR [facility] Last Admin: 03/08/19 14:14 Dose: 5,000 units Hydralazine HCl (Apresoline Tab*) 10 mg PO TID [facility] Last Admin: 03/08/19 14:14 Dose: 10 mg Sodium Chloride (Ns 0.9% 1000 Ml) 1,000 mls @ 75 mls/hr IV PER RATE [facility] Last Admin: 03/08/19 09:43 Dose: 75 mls/hr Ceftriaxone Sodium 1 gm/ (Sodium Chloride) 50 mls @ 100 mls/hr IVPB Q24H [facility] Latanoprost (Xalatan 0.005%*) 1 drop BOTH EYES QPM [facility] Lisinopril (Prinivil Tab*) 10 mg PO QAM [facility] Last Admin: 12/14/19 09:11 Dose: 10 mg Magnesium Hydroxide (Milk Of Magnesia Liq*) 30 ml PO BID [facility] Last Admin: 03/08/19 09:11 Dose: 30 ml Magnesium Hydroxide (Milk Of Magnesia Liq*) 30 ml PO BID PRN PRN Reason: CONSTIPATION Oxycodone/Acetaminophen (Percocet 5/325 Tab*) 1 tab PO TID PRN PRN Reason: PAIN - MODERATE Last Admin: 03/08/19 14:14 Dose: 1 tab Pantoprazole Sodium (Protonix Tab*) 40 mg PO BID [facility] Last Admin: 03/08/19 09:12 Dose: 40 mg Polyethylene Glycol/Electrolytes (Miralax*) 17 gm PO DAILY PRN PRN Reason: CONSTIPATION Last Admin: 03/07/19 20:25 Dose: 17 gm Potassium Chloride (Klor Con Er Tab*) 10 meq PO QAM [facility] Last Admin: 03/08/19 09:11 Dose: 10 meq Senna (Senokot 8.6 Mg Tab*) 1 tab PO BEDTIME PRN PRN Reason: CONSTIPATION Last Admin: 03/07/19 20:24 Dose: 1 tab Vital Signs - 8 hr 03/08/19 03/08/19 03/08/19 09:10 11:15 14:14 Temperature 98.6 F Pulse Rate 68 Respiratory 17 15 17 Rate Blood Pressure 157/72 (mmHg) O2 Sat by Pulse 97 Oximetry Oxygen Devices in Use Now: None Eyes: No Scleral Icterus Neck: NL Appearance and Movements; NL JVP Respiratory: Symmetrical Chest Expansion and Respiratory Effort, Clear to Auscultation Cardiovascular: NL Sounds; No Murmurs; No JVD Abdominal: NL Sounds; No Tenderness; No Distention Extremities: No Edema Neurological: Alert and Oriented x 3 Result Diagrams: 03/08/19 05:49 03/08/19 05:49 Microbiology and Other Data: Microbiology 03/07/19 15:19 Urine Culture - Preliminary Urine Escherichia Coli Assess/Plan/Problems-Billing Assessment: - Patient Problems (1) UTI (urinary tract infection) Current Visit: Yes Status: Acute Comment: E coli in prelim culture Continue ceftriaxone f.u on blood and urine cx (2) CKD (chronic kidney disease) Current Visit: Yes Status: Acute Code(s): N18.9 - CHRONIC KIDNEY DISEASE, UNSPECIFIED SNOMED Code(s): 086825487 Comment: at baseline (3) Ileus Current Visit: Yes Status: Acute Code(s): K56.7 - ILEUS, UNSPECIFIED SNOMED Code(s): 784545052 Comment: on imaging no bm yet supportive treatment repeat abd x ray in am and further plan based on clinical progress (4) Heart block Current Visit: Yes Status: Acute Code(s): I45.9 - CONDUCTION DISORDER, UNSPECIFIED SNOMED Code(s): 062824581 Comment: on initial admission second degree type 1 will monitor on tele Status and Disposition: pt/ot
[2019-03-08] MEDS: Atorvastatin* 20 MG TAB PO SCH (17:01)
[2019-03-08] MEDS: Latanoprost 0.005%* 2.5 ml BTL BOTH EYES SCH (17:02)
[2019-03-08] MEDS ORDERED: cefTRIAXone(*) 1 GM in NS 0.9% 50 ML* 50 ML IVPB SCH (20:00)
[2019-03-08] MEDS ORDERED: Loperamide CAP* 2 MG PO ONE (23:15)
[2019-03-08] MEDS ORDERED: ALPRAZolam TAB* 0.5 MG PO ONE (23:15)
[2019-03-09] MEDS: NS 0.9% 1000 ML** 1,000 ML IV SCH (01:00)
[2019-03-09] MEDS: Heparin VIAL(*) 5000 UNITS/ML VIAL (FIVE THOUSAND) SUBCUT SCH ×3 (06:01→21:35)
[2019-03-09 06:50] LABS: ABS Eosinophils 0.2 10^3/ul (0-0.6); ABS Lymphocytes 1.1 10^3/ul (1.0-4.8); ABS Monocytes 0.6 10^3/ul (0-0.8); ABS Neutrophils 5.5 10^3/ul (1.5-7.7); Eosinophil % 2.6 %; Hematocrit 35 % (35-47); Hemoglobin 11.6 g/dL (12.0-16.0); Lymphocyte % 15.1 %; Mean Corpuscular HGB Conc 33 g/dL (31-36); Mean Corpuscular Hemoglobin 32 pg (27-31); Mean Corpuscular Volume 97 fL (80-97); Mean Platelet Volume 7.7 fL (7.4-10.4); Platelet Count 247 10^3/uL (150-450); Red Blood Count 3.62 10^6 /uL (3.70-4.87); Red Cell Distribution Width 14 % (10-15); White Blood Count 7.5 10^3/uL (3.5-10.8)
[2019-03-09 06:54] LABS: BUN/Creatinine Ratio 15.7 (8-20); Calcium 8.3 mg/dL (8.6-10.3); EGFR African American 58.9 (>60); EGFR Non-African American 48.7 (>60); Potassium 3.8 mmol/L (3.5-5.0)
[2019-03-09] MEDS: Diltiazem CD CAP* 240 MG PO SCH (08:01)
[2019-03-09] MEDS: Gabapentin CAP(*) 100 MG PO SCH ×2 (08:02→20:05)
[2019-03-09] MEDS: DULoxetine DR CAP* 30 MG CAP.DR PO SCH (08:02)
[2019-03-09] MEDS: oxyCODONE/Acetamin 5/325 MG* TAB PO PRN ×3 (08:02→22:00)
[2019-03-09] MEDS: Docusate CAP* 100 MG PO SCH ×2 (08:02→20:06)
[2019-03-09] MEDS: Aspirin EC TAB* 81 MG TAB.EC PO SCH (08:02)
[2019-03-09] MEDS: Furosemide TAB* 20 MG PO SCH (08:03)
[2019-03-09] MEDS: Baclofen TAB* 10 MG PO SCH ×2 (08:03→20:06)
[2019-03-09] MEDS: Lisinopril TAB* 10 MG PO SCH (08:03)
[2019-03-09] MEDS: Pantoprazole TAB * 40 MG TAB PO SCH ×2 (08:03→20:06)
[2019-03-09] MEDS: hydrALAZINE TAB* 10 MG PO SCH ×3 (08:03→20:06)
[2019-03-09] MEDS: Potassium Chlor TAB* 10 MEQ TAB.ER PO SCH (08:03)
--- NOTE | 2019-03-09 13:34 | PN ---
Subjective Date of Service: 03/09/19 Interval History: Pt states she generally is feeling ok but feels "blah." She started having some loose stools last night and then took imodium and now thinks she is constipated. She denies any nausea or pain. She has not walked much. Objective Active Medications: Acetaminophen (Tylenol Tab*) 650 mg PO Q4H PRN PRN Reason: PAIN-MILD/TEMP >/= 100.4 Last Admin: 03/08/19 22:11 Dose: 650 mg Al Hydrox/Mg Hydrox/Simethicone (Maalox Plus*) 30 ml PO Q6H PRN PRN Reason: INDIGESTION Aspirin (Aspirin Ec Tab*) 81 mg PO QAM [facility] Last Admin: 03/09/19 08:02 Dose: 81 mg Atorvastatin Calcium (Lipitor*) 20 mg PO QPM [facility] Last Admin: 03/08/19 17:01 Dose: 20 mg Baclofen (Lioresal Tab*) 10 mg PO BID [facility] Last Admin: 03/09/19 08:03 Dose: 10 mg Diltiazem HCl (Cardizem Cd Cap*) 240 mg PO QAM [facility] Last Admin: 03/09/19 08:01 Dose: 240 mg Docusate Sodium (Colace Cap*) 100 mg PO BID [facility] Last Admin: 03/09/19 08:02 Dose: 100 mg Duloxetine HCl (Cymbalta Cap*) 30 mg PO DAILY [facility] Last Admin: 03/09/19 08:02 Dose: 30 mg Furosemide (Lasix Tab*) 20 mg PO DAILY [facility] Last Admin: 03/09/19 08:03 Dose: 20 mg Gabapentin (Neurontin Cap(*)) 100 mg PO BID [facility] Last Admin: 03/09/19 08:02 Dose: 100 mg Heparin Sodium (Porcine) (Heparin Vial(*)) 5,000 units SUBCUT Q8HR [facility] Last Admin: 03/09/19 06:01 Dose: 5,000 units Hydralazine HCl (Apresoline Tab*) 10 mg PO TID [facility] Last Admin: 03/09/19 08:03 Dose: 10 mg Sodium Chloride (Ns 0.9% 1000 Ml) 1,000 mls @ 75 mls/hr IV PER RATE [facility] Last Admin: 03/09/19 01:00 Dose: 75 mls/hr Ceftriaxone Sodium 1 gm/ (Sodium Chloride) 50 mls @ 100 mls/hr IVPB Q24H [facility] Last Admin: 03/08/19 22:02 Dose: 100 mls/hr Latanoprost (Xalatan 0.005%*) 1 drop BOTH EYES QPM [facility] Last Admin: 03/08/19 17:02 Dose: 1 drop Lisinopril (Prinivil Tab*) 10 mg PO QAM [facility] Last Admin: 03/09/19 08:03 Dose: 10 mg Magnesium Hydroxide (Milk Of Magnesia Liq*) 30 ml PO BID PRN PRN Reason: CONSTIPATION Oxycodone/Acetaminophen (Percocet 5/325 Tab*) 1 tab PO TID PRN PRN Reason: PAIN - MODERATE Last Admin: 03/09/19 08:02 Dose: 1 tab Pantoprazole Sodium (Protonix Tab*) 40 mg PO BID [facility] Last Admin: 03/09/19 08:03 Dose: 40 mg Polyethylene Glycol/Electrolytes (Miralax*) 17 gm PO DAILY PRN PRN Reason: CONSTIPATION Last Admin: 03/07/19 20:25 Dose: 17 gm Potassium Chloride (Klor Con Er Tab*) 10 meq [facility] [place] Last Admin: 03/09/19 08:03 Dose: 10 meq Senna (Senokot 8.6 Mg Tab*) 1 tab PO BEDTIME PRN PRN Reason: CONSTIPATION Last Admin: 03/07/19 20:24 Dose: 1 tab Vital Signs - 8 hr 03/09/19 03/09/19 03/09/19 08:02 08:11 08:39 Temperature 98.1 F Pulse Rate 57 Respiratory 16 16 21 Rate Blood Pressure 165/75 (mmHg) O2 Sat by Pulse 97 Oximetry Oxygen Devices in Use Now: None Appearance: Elderly female lying flat in bed, NAD Eyes: No Scleral Icterus Ears/Nose/Mouth/Throat: Mucous Membranes Moist Respiratory: Symmetrical Chest Expansion and Respiratory Effort, Clear to Auscultation Cardiovascular: NL Sounds; No Murmurs; No JVD, RRR, No Edema Abdominal: NL Sounds; No Tenderness; No Distention Extremities: No Clubbing, Cyanosis Skin: No Nodules or Sclerosis Neurological: Alert and Oriented x 3 Result Diagrams: 03/09/19 06:17 03/09/19 06:17 Microbiology and Other Data: Microbiology 03/07/19 15:19 Urine Culture - Preliminary Urine Escherichia Coli Assess/Plan/Problems-Billing Ms Aguirre is an 83 yo F who has a h/o CAD, diet controlled DM, HTN, CKD stage III and JACEY who presented to the ER with c/o nausea and weakness and was found to have a UTI. - Patient Problems (1) Weakness Current Visit: Yes Status: Acute Code(s): R53.1 - WEAKNESS SNOMED Code(s) : 12221546 Comment: [place] to be secondary to Ecoli UTI. She has not walked yet. Will get up with nursing this afternoon. If stable will d/c home this afternoon. (2) UTI (urinary tract infection) Current Visit: Yes Status: Acute Comment: Pt grew edwards sensitive E coli. Will change from ceftriaxone to doxycycline 100mg BID to complete a full 7 day course of therapy. (3) Mobitz (type) I (Wenckebach's) atrioventricular block Current Visit: Yes Status: Acute Code(s): I44.1 - ATRIOVENTRICULAR BLOCK, SECOND DEGREE SNOMED Code(s): 19435603 Comment: Noted on tele. Monitor. (4) HTN (hypertension) Current Visit: Yes Status: Acute Code(s): I10 - ESSENTIAL (PRIMARY) HYPERTENSION SNOMED Code(s): 50462558 Comment: BP mildly elevated. Will continue hydralazine, lisinopril, diltiazem and lasix. (5) CAD (coronary artery disease) Current Visit: Yes Status: Acute Code(s): I25.10 - ATHSCL HEART DISEASE OF [place] CORONARY ARTERY W/O ANG PCTRS SNOMED Code(s): 86463301 Comment: No c/o CP. Continue ASA, lisinopril and lipitor. (6) Chronic kidney disease Current Visit: Yes Status: Acute Code(s): N18.9 - CHRONIC KIDNEY DISEASE, UNSPECIFIED SNOMED Code(s): 284896172 Comment: Creatinine at baseline. Follow intermittently. (7) Type 2 diabetes mellitus Current Visit: Yes Status: Acute Comment: Diet controlled. Blood sugars on AM labs under good control. (8) DVT prophylaxis Current Visit: Yes Status: Acute Onset Date: 06/30/14 Code(s): VBS1001 - SNOMED Code(s): 626526825 Comment: SQ Heparin (9) DNR (do not resuscitate) Current Visit: Yes Status: Acute Status and Disposition: .
[2019-03-09] MEDS: Acetaminophen TAB* 325 MG PO PRN (18:08)
[2019-03-09] MEDS: Atorvastatin* 20 MG TAB PO SCH (18:08)
[2019-03-09] MEDS: Latanoprost 0.005%* 2.5 ml BTL BOTH EYES SCH (18:10)
[2019-03-09] MEDS: DOXYcycline CAP(*) 100 MG PO SCH (20:06)
[2019-03-09] MEDS: Al Hydrox/Mg Hydrox/Simet LIQ* 30 ML UDC PO PRN (21:35)
[2019-03-10] MEDS: Heparin VIAL(*) 5000 UNITS/ML VIAL (FIVE THOUSAND) SUBCUT SCH ×3 (05:15→22:29)
[2019-03-10] MEDS: oxyCODONE/Acetamin 5/325 MG* TAB PO PRN ×3 (05:16→22:32)
[2019-03-10] MEDS: Lisinopril TAB* 10 MG PO SCH (07:57)
[2019-03-10] MEDS: Aspirin EC TAB* 81 MG TAB.EC PO SCH (07:57)
[2019-03-10] MEDS: DULoxetine DR CAP* 30 MG CAP.DR PO SCH (07:57)
[2019-03-10] MEDS: Gabapentin CAP(*) 100 MG PO SCH ×2 (07:57→19:59)
[2019-03-10] MEDS: hydrALAZINE TAB* 10 MG PO SCH ×2 (07:57→14:01)
[2019-03-10] MEDS: Diltiazem CD CAP* 240 MG PO SCH (07:57)
[2019-03-10] MEDS: Pantoprazole TAB * 40 MG TAB PO SCH ×2 (07:58→20:00)
[2019-03-10] MEDS: Baclofen TAB* 10 MG PO SCH ×2 (07:58→19:59)
[2019-03-10] MEDS: Docusate CAP* 100 MG PO SCH ×2 (07:58→20:03)
[2019-03-10] MEDS: DOXYcycline CAP(*) 100 MG PO SCH ×2 (07:58→19:59)
[2019-03-10] MEDS: Furosemide TAB* 20 MG PO SCH (07:58)
[2019-03-10] MEDS: Potassium Chlor TAB* 10 MEQ TAB.ER PO SCH (07:58)
--- NOTE | 2019-03-10 14:17 | PN ---
Subjective Date of Service: 03/10/19 Interval History: Pt is feeling well. She feels relief about having a PT need and being able to go to rehab and then potentially convert to longterm care. She denies any pain. No SOB. Objective Active Medications: Acetaminophen (Tylenol Tab*) 650 mg PO Q4H PRN PRN Reason: PAIN-MILD/TEMP >/= 100.4 Last Admin: 03/09/19 18:08 Dose: 650 mg Al Hydrox/Mg Hydrox/Simethicone (Maalox Plus*) 30 ml PO Q6H PRN PRN Reason: INDIGESTION Last Admin: 03/09/19 21:35 Dose: 30 ml Aspirin (Aspirin Ec Tab*) 81 mg PO QAM [facility] Last Admin: 03/10/19 07:57 Dose: 81 mg Atorvastatin Calcium (Lipitor*) 20 mg PO QPM [facility] Last Admin: 03/09/19 18:08 Dose: 20 mg Baclofen (Lioresal Tab*) 10 mg PO BID [facility] Last Admin: 03/10/19 07:58 Dose: 10 mg Diltiazem HCl (Cardizem Cd Cap*) 240 mg PO QAM [facility] Last Admin: 03/10/19 07:57 Dose: 240 mg Docusate Sodium (Colace Cap*) 100 mg PO BID [facility] Last Admin: 03/10/19 07:58 Dose: 100 mg Doxycycline Hyclate (Vibramycin Cap(*)) 100 mg PO BID [facility] Last Admin: 03/10/19 07:58 Dose: 100 mg Duloxetine HCl (Cymbalta Cap*) 30 mg PO DAILY [facility] Last Admin: 03/10/19 07:57 Dose: 30 mg Furosemide (Lasix Tab*) 20 mg PO DAILY [facility] Last Admin: 03/10/19 07:58 Dose: 20 mg Gabapentin (Neurontin Cap(*)) 100 mg PO BID [facility] Last Admin: 03/10/19 07:57 Dose: 100 mg Heparin Sodium (Porcine) (Heparin Vial(*)) 5,000 units SUBCUT Q8HR [facility] Last Admin: 03/10/19 14:01 Dose: 5,000 units Hydralazine HCl (Apresoline Tab*) 10 mg PO TID [facility] Last Admin: 03/10/19 14:01 Dose: 10 mg Latanoprost (Xalatan 0.005%*) 1 drop BOTH EYES QPM [facility] Last Admin: 03/09/19 18:10 Dose: 1 drop Lisinopril (Prinivil Tab*) 10 mg PO QAM [facility] Last Admin: 03/10/19 07:57 Dose: 10 mg Magnesium Hydroxide (Milk Of Magnesia Liq*) 30 ml PO BID PRN PRN Reason: CONSTIPATION Oxycodone/Acetaminophen (Percocet 5/325 Tab*) 1 tab PO TID PRN PRN Reason: PAIN - MODERATE Last Admin: 03/10/19 13:21 Dose: 1 tab Pantoprazole Sodium (Protonix Tab*) 40 mg PO BID [facility] Last Admin: 03/10/19 07:58 Dose: 40 mg Polyethylene Glycol/Electrolytes (Miralax*) 17 gm PO DAILY PRN PRN Reason: CONSTIPATION Last Admin: 03/07/19 20:25 Dose: 17 gm Potassium Chloride (Klor Con Er Tab*) 10 meq PO QAM [facility] Last Admin: 03/10/19 07:58 Dose: 10 meq Senna (Senokot 8.6 Mg Tab*) 1 tab PO BEDTIME PRN PRN Reason: CONSTIPATION Last Admin: 03/07/19 20:24 Dose: 1 tab Vital Signs - 8 hr 03/10/19 03/10/19 03/10/19 07:15 07:20 07:57 Temperature 98.2 F Pulse Rate 60 Respiratory 16 16 16 Rate Blood Pressure 165/86 (mmHg) O2 Sat by Pulse 100 Oximetry 03/10/19 03/10/19 03/10/19 08:00 09:30 13:21 Temperature Pulse Rate Respiratory 16 16 15 Rate Blood Pressure (mmHg) O2 Sat by Pulse Oximetry Oxygen Devices in Use Now: None Appearance: Elderly female sitting up in bed, NAD Eyes: No Scleral Icterus Ears/Nose/Mouth/Throat: Mucous Membranes Moist Respiratory: Symmetrical Chest Expansion and Respiratory Effort, Clear to Auscultation Cardiovascular: NL Sounds; No Murmurs; No JVD, RRR, No Edema Abdominal: NL Sounds; No Tenderness; No Distention Extremities: No Clubbing, Cyanosis Skin: No Nodules or Sclerosis Neurological: Alert and Oriented x 3 Result Diagrams: 03/09/19 06:17 03/09/19 06:17 Microbiology and Other Data: Microbiology 03/07/19 15:19 Urine Culture - Preliminary Urine Escherichia Coli Assess/Plan/Problems-Billing Ms Aguirre is an 83 yo F who has a h/o CAD, diet controlled DM, HTN, CKD stage III and JACEY who presented to the ER with c/o nausea and weakness and was found to have a UTI. - Patient Problems (1) Weakness Current Visit: Yes Status: Acute Code(s): R53.1 - WEAKNESS SNOMED Code(s) : 33243387 Comment: [place] to be secondary to Ecoli UTI. She has been up and walking, did well per nursing yesterday. Today evaluated by PT and felt to have STR need. Referals sent to [facility]. (2) UTI (urinary tract infection) Current Visit: Yes Status: Acute Comment: Continue doxycycline to complete 7 day course of therapy. (3) Mobitz (type) I (Wenckebach's) atrioventricular block Current Visit: Yes Status: Acute Code(s): I44.1 - ATRIOVENTRICULAR BLOCK, SECOND DEGREE SNOMED Code(s): 81847540 Comment: Discontinue tele. (4) HTN (hypertension) Current Visit: Yes Status: Acute Code(s): I10 - ESSENTIAL (PRIMARY) HYPERTENSION SNOMED Code(s): 65645615 Comment: BP is still mildly elevated. Will continue hydralazine but increase to 25mg TID, lisinopril, diltiazem and lasix. (5) CAD (coronary artery disease) Current Visit: Yes Status: Acute Code(s): I25.10 - ATHSCL HEART DISEASE OF [place] CORONARY ARTERY W/O ANG PCTRS SNOMED Code(s): 26573252 Comment: No c/o CP. Continue ASA, lisinopril and lipitor. (6) Chronic kidney disease Current Visit: Yes Status: Acute Code(s): N18.9 - CHRONIC KIDNEY DISEASE, UNSPECIFIED SNOMED Code(s): 866394612 Comment: Creatinine at baseline. Follow intermittently. (7) Type 2 diabetes mellitus Current Visit: Yes Status: Acute Comment: Diet controlled. Blood sugars on AM labs under good control. (8) DVT prophylaxis Current Visit: Yes Status: Acute Onset Date: 06/30/14 Code(s): XYS8309 - SNOMED Code(s): 637471760 Comment: SQ Heparin (9) DNR (do not resuscitate) Current Visit: Yes Status: Acute Status and Disposition: .
[2019-03-10] MEDS: Atorvastatin* 20 MG TAB PO SCH (16:52)
[2019-03-10] MEDS: Al Hydrox/Mg Hydrox/Simet LIQ* 30 ML UDC PO PRN ×2 (16:52→22:29)
[2019-03-10] MEDS: Latanoprost 0.005%* 2.5 ml BTL BOTH EYES SCH (18:05)
[2019-03-10] MEDS: Acetaminophen TAB* 325 MG PO PRN (19:59)
[2019-03-10] MEDS: hydrALAZINE TAB* 25 MG PO SCH (20:00)
[2019-03-10] MEDS ORDERED: Melatonin 3 MG TAB PO SCH (23:45)
[2019-03-11] MEDS: Heparin VIAL(*) 5000 UNITS/ML VIAL (FIVE THOUSAND) SUBCUT SCH ×2 (05:54→13:44)
[2019-03-11] MEDS: Lisinopril TAB* 10 MG PO SCH (08:36)
[2019-03-11] MEDS: oxyCODONE/Acetamin 5/325 MG* TAB PO PRN (08:36)
[2019-03-11] MEDS: Aspirin EC TAB* 81 MG TAB.EC PO SCH (08:36)
[2019-03-11] MEDS: Gabapentin CAP(*) 100 MG PO SCH (08:37)
[2019-03-11] MEDS: Docusate CAP* 100 MG PO SCH (08:37)
[2019-03-11] MEDS: DOXYcycline CAP(*) 100 MG PO SCH (08:37)
[2019-03-11] MEDS: Diltiazem CD CAP* 240 MG PO SCH (08:38)
[2019-03-11] MEDS: DULoxetine DR CAP* 30 MG CAP.DR PO SCH (08:38)
[2019-03-11] MEDS: Pantoprazole TAB * 40 MG TAB PO SCH (08:38)
[2019-03-11] MEDS: Potassium Chlor TAB* 10 MEQ TAB.ER PO SCH (08:39)
[2019-03-11] MEDS: Baclofen TAB* 10 MG PO SCH (08:39)
[2019-03-11] MEDS: Furosemide TAB* 20 MG PO SCH (08:39)
[2019-03-11] MEDS: hydrALAZINE TAB* 25 MG PO SCH ×2 (08:39→13:22)
[2019-03-11 11:06] VITALS: BP 124/64
[2019-03-11] MEDS ORDERED: oxyCODONE/Acetamin 5/325 MG* TAB PO PRN (11:28)
--- NOTE | 2019-03-11 14:02 | DS ---
CC: BLACK Pompa * DISCHARGE SUMMARY: DATE OF ADMISSION: 03/07/19 DATE OF DISCHARGE: 03/11/19 PRIMARY CARE PROVIDER: BLACK Pompa. PRINCIPAL DIAGNOSES: 1. Weakness secondary to urinary tract infection. 2. Second-degree heart block, Mobitz type I. SECONDARY DIAGNOSES: 1. Coronary artery disease. 2. Diabetes. 3. Hypertension. 4. Obstructive sleep apnea. 5. Stage III chronic kidney disease. 6. Chronic shoulder pain. DISCHARGE MEDICATIONS: 1. Lasix 20 mg p.o. daily. 2. Senna 8.61 mg p.o. daily p.r.n. constipation. 3. MOM 30 mL p.o. q.4 hours p.r.n. constipation. 4. Latanoprost 1 drop to both eyes q.h.s. 5. Ferrous sulfate 325 mg p.o. daily. 6. Colace 100 mg p.o. daily. 7. Prolia 60 mg subcutaneous q.6 months. 8. Cod liver oil 1 cap p.o. daily. 9. Calcium carbonate 600 mg p.o. b.i.d. 10. Baclofen 10 mg p.o. b.i.d. 11. Aspirin 81 mg p.o. daily. 12. Nitroglycerin 0.4 mg SL q.5 minutes p.r.n. chest pain. 13. Multivitamin 1 tab p.o. daily. 14. Diltiazem CD 240 mg p.o. daily. 15. Lisinopril 10 mg p.o. daily. 16. Gabapentin 100 mg p.o. twice daily. 17. Valacyclovir 500 mg p.o. b.i.d. 18. Potassium chloride 10 mEq p.o. daily. 19. Lipitor 20 mg p.o. q.h.s. 20. Duloxetine DR 30 mg p.o. daily. 21. Percocet 5/325 one to two tabs p.o. t.i.d. p.r.n. pain. 22. Omeprazole 20 mg p.o. b.i.d. 23. Hydralazine 25 mg p.o. t.i.d. 24. Doxycycline 100 mg p.o. b.i.d. x6 doses. HOSPITAL COURSE: Ms. Aguirre is an 83-year-old female who presented to the emergency room on 03/07/19 with complaints of feeling unwell as well as nausea and generalized weakness. The patient's visiting nurse had just visited her at her apartment in [facility]. The patient reported feeling unwell and was recommended that the patient be sent to the emergency room. In the ER, she was found to have a urinary tract infection. Urine culture ultimately grew E. coli. This was pansensitive. She was initially treated with ceftriaxone and subsequently changed to doxycycline. The patient was doing better and had ambulated with Nursing, and on 03/09/19, was felt to be able to be discharged home. A phone call from visiting nurses were subsequently received stating that there were concerns about the patient being able to take care of herself in her apartment alone. Therefore, the discharge was canceled. The patient was seen by Physical Therapy on 03/10/19 and it was felt that she does have PT needs. The patient also states that in general she would prefer to go to a more supportive living environment such as a longterm and is feeling relief with this decision. She has been offered a bed for [facility] for today . On the day of discharge, the patient is awake, alert, and oriented sitting up in bed, in no acute distress. Cardiac exam reveals a normal S1 and S2 with a regular rate and rhythm. She has no lower extremity edema. Lungs are clear to auscultation bilaterally. Abdomen is soft, nontender, nondistended. She moves all 4 extremities symmetrically. FOLLOWUP CONCERNS: The patient is being discharged to [facility] today, . Activity level is as tolerated. Diet is diabetic. CONDITION ON DISCHARGE: Stable. TIME SPENT: Thirty-five minutes was spent discharging this patient. [id number]/CPS #: [id number] MTDD
== END 2019-03-11 15:20 | DRG 690 ==
LOC: ED 11:38 → MED 18:33 → OBSVTOIN 03-08 15:44
PROVIDERS: ADMIT Internal Medicine; ATTEND Hospitalist
DX: N39.0 Urinary tract infection, site not specified (principal); K56.7 Ileus, unspecified; I44.1 Atrioventricular block, second degree; I25.10 Atherosclerotic heart disease of native coronary artery without angina pectoris; E11.22 Type 2 diabetes mellitus with diabetic chronic kidney disease; G47.33 Obstructive sleep apnea (adult) (pediatric); B96.20 Unspecified Escherichia coli [E. coli] as the cause of diseases classified elsewhere; I45.10 Unspecified right bundle-branch block; I12.9 Hypertensive chronic kidney disease with stage 1 through stage 4 chronic kidney disease, or unspecified chronic kidney disease; M25.512 Pain in left shoulder; E66.9 Obesity, unspecified; Z96.653 Presence of artificial knee joint, bilateral; K59.00 Constipation, unspecified; E78.00 Pure hypercholesterolemia, unspecified; E03.9 Hypothyroidism, unspecified; M19.90 Unspecified osteoarthritis, unspecified site; H40.9 Unspecified glaucoma; Z66 Do not resuscitate; N18.3 Chronic kidney disease, stage 3 (moderate); G89.29 Other chronic pain; Z79.899 Other long term (current) drug therapy; Z79.82 Long term (current) use of aspirin; Z68.35 Body mass index [BMI] 35.0-35.9, adult; Z86.718 Personal history of other venous thrombosis and embolism; Z88.0 Allergy status to penicillin; I25.2 Old myocardial infarction; Z28.21 Immunization not carried out because of patient refusal
CPT/HCPCS: 36415; 74019; 74177; 80048; 80053; 81003; 81015; 83605; 83735; 84443; 84484; 85025; 87077; 87086; 87186; 93005; 96361; 96374; 96375; 99284; A9270-GY; G0378; G8978-GP-CK; G8979-GP-CJ; J0696; J1644; J2270; J2405; Q9967

== ENCOUNTER 2019-03-15 17:31 | Inpatient (IN) | payer MEDICARE, MEDICAID ==
--- NOTE | 2019-03-15 17:41 | ED ---
Neurological HPI - HPI Summary HPI Summary: This patient is an 83 year old female brought in by EMS presenting to [facility] from [facility] with a chief complaint of tremor in the left arm. She was discharged last week from the hospital and the [place] [facility] was concerned this could be a seizure. The patient has no Hx of seizures and she states she has had this tremor for years. The patient does report SOB today. She states she feels like there is something stuck in her throat. Patient is a poor historian. - History of Current Complaint Stated Complaint: WEAKNESS PER EMS Time Seen by Provider: 03/15/19 17:34 Hx Obtained From: Patient Onset/Duration: Started hours ago - Additional Pertinent History Primary Care Physician: ABISAI - Allergy/Home Medications Allergies/Adverse Reactions: Allergies Allergy/AdvReac Type Severity Reaction Status Date / Time Penicillins Allergy rash on Verified 03/07/19 12:19 face PMH/Surg Hx/FS Hx/Imm Hx Endocrine/Hematology History: Reports: Hx Diabetes, Hx Thyroid Disease - hypothyroid Denies: Hx Anticoagulant Therapy, Hx Blood Disorders, Hx Blood Transfusions, Hx Bone Marrow Disease, Hx Systemic Lupus Erythematosus, Hx Sickle Cell Disease , Hx Anemia, Hx Unexplained Bleeding Cardiovascular History: Reports: Hx Angina, Hx Angioplasty, Hx Coronary Artery Disease, Hx Deep Vein Thrombosis, Hx Hypercholesterolemia, Hx Hypertension, Hx Myocardial Infarction, Other Cardiovascular Problems/Disorders - a fib Denies: Hx Aneurysm, Hx Auto Implanted Cardiovert Defib, Hx Cardiac Arrest, Hx Cardiomegaly, Hx Congenital Heart Disease, Hx Congestive Heart Failure, Hx Hypotension, Hx Pacemaker/ICD, Hx Peripheral Vascular Disease, Hx Rheumatic Fever, Hx Syncope, Hx Valvular Heart Disease Respiratory History: Reports: Hx Sleep Apnea - states hx of but does not use CPAP at home Denies: Hx Asthma, Hx Chronic Bronchitis, Hx Chronic Obstructive Pulmonary Disease (COPD), Hx Cystic Fibrosis, Hx Lung Cancer, Hx Pleural Effusion, Hx Pneumonia, Hx Pulmonary Edema, Hx Pulmonary Embolism, Hx Seasonal Allergies, Other Respiratory Problems/Disorders GI History: Reports: Hx Diverticulosis, Hx Gastroesophageal Reflux Disease, Hx Gastrointestinal Bleed Denies: Hx Cirrhosis, Hx Crohn's Disease, Hx Gall Bladder Disease, Hx Hiatal Hernia, Hx Irritable Bowel, Hx Jaundice, Hx Obstructive Bowel, Hx Ileostomy, Hx Pyloric Stenosis, Hx Ulcer, Other GI Disorders History: Denies: Hx Acute Renal Failure, Hx Benign Prostatic Hyperplasia, Hx Chronic Renal Failure, Hx Dialysis, Hx Kidney Infection, Hx Kidney Stones, Other Problems/Disorders Musculoskeletal History: Reports: Hx Arthritis, Hx Back Problems, Hx Tendonitis - fingers, 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) Denies: Hx Bursitis, Hx Congenital Bone Abnormalities, Hx Fibromyalgia, Hx Gout, Hx Orthopedic Injury, Hx Osteoporosis, Hx Scoliosis Sensory History: Reports: Hx Cataracts, Hx Glaucoma, Hx Vision Problem, Hx Hearing Problem - hard of hearing Denies: Hx Contacts or Glasses, Hx Eye Injury, Hx Eye Prosthesis, Hx Legally Blind, Hx Macular Degeneration, Hx Deafness, Hx Hearing Aid, Other Sensory Impairments Opthamlomology History: Reports: Hx Cataracts, Hx Glaucoma, Hx Vision Problem Denies: Hx Contacts or Glasses, Hx Eye Injury, Hx Eye Prosthesis, Hx Legally Blind, Hx Macular Degeneration, Other Sensory Impairments Neurological History: Reports: Hx Headaches Denies: Hx Dementia, Hx Developmental Delay, Hx Migraine, Hx Seizures, Hx Spinal Cord Injury, Hx Transient Ischemic Attacks (TIA), Other Neuro Impairments /Disorders Psychiatric History: Denies: Hx Anxiety, Hx Attention Deficit Hyperactivity Disorder, Hx Eating Disorder, Hx Depression, Hx Panic Disorder, Hx Post Traumatic Stress Disorder, Hx Inpatient Treatment, Hx Community Mental Health Tx, Hx Schizophrenia, Hx Bipolar Disorder, Hx Suicide Attempt, Hx Substance Abuse, Other Psychiatric Issues/Disorders - Cancer History Hx Chemotherapy: No Hx Radiation Therapy: No - Surgical History Surgery Procedure, Year, and Place: KNEE REPLACEMENTS- LEFT KNEE X2, RIGHT KNEE X1;. Hysterectomy;. CATARACTS;. PART OF COLON REMOVED FOR DIVERTICULITIS;. CARPAL TUNNEL. Back surgery 02/2018 Hx Anesthesia Reactions: No - Immunization History Date of Tetanus Vaccine: unk Date of Influenza Vaccine: 2016 Infectious Disease History: Reports: History Other Infectious Disease - herpes Denies: Hx Clostridium Difficile, Hx Hepatitis, Hx Human Immunodeficiency Virus (HIV), Hx of Known/Suspected MRSA, Hx Shingles, Hx Tuberculosis, Hx Known/ Suspected VRE, Hx Known/Suspected VRSA - Family History Known Family History: Positive: Hypertension, Diabetes, Other - Diverticulitis, sickle cell, arthritis Family History: Type II - Social History Alcohol Use: Rare Alcohol Amount: "once a year" Hx Substance Use: No Substance Use Type: Reports: None Hx Tobacco Use: No Smoking Status (MU): Never Smoked Tobacco Have You Smoked in the Last Year: No Review of Systems Negative: Fever Positive: Other - Sensation in her throat. Positive: Shortness Of Breath Neurological: Other - Tremor All Other Systems Reviewed And Are Negative: Yes Physical Exam - Summary Physical Exam Summary: Constitutional: Well-developed, Well-nourished, Alert. (-) Distressed Skin: Warm, Dry HENT: Normocephalic; Atraumatic Eyes: Conjunctiva normal Neck: Musculoskeletal ROM normal neck. (-) JVD, (-) Stridor, (-) Tracheal deviation Cardio: Rhythm regular, rate normal, Heart sounds normal; Intact distal pulses; Radial pulses are 2+ and symmetric. (-) Murmur Pulmonary/Chest wall: Effort normal. (-) Respiratory distress, Stridor, (-) Rales. Clear. Abd: Soft, (-) tenderness, (-) Distension, (-) Guarding, (-) Rebound Musculoskeletal: (-) Edema Lymph: (-) Cervical adenopathy Neuro: Alert, Oriented x3. LUE resting tremor. Psych: Mood and affect Normal Triage Information Reviewed: Yes Vital Signs Reviewed: Yes Procedures - Sedation Patient Received Moderate/Deep Sedation with Procedure: No Diagnostics - Laboratory Result Diagrams: 03/15/19 17:54 03/15/19 17:54 Lab Statement: Any lab studies that have been ordered have been reviewed, and results considered in the medical decision making process. - Radiology CXR Radiology Interpretation Completed By: Radiologist Summary of Radiographic Findings: No radiographic evidence for acute cardiopulmonary abnormality on this portable CXR. ED Physician has reviewed this report. - EKG 1815 Cardiac Rate: NL EKG Rhythm: Sinus Rhythm Summary of EKG Findings: RBBB, no ischemic changed. Dr. Dunham has reviewd and interpreted this EKG. Course/Dx - Course Course Of Treatment: This patient is an 83 year old female brought in by EMS presenting to [facility] from [facility] with a chief complaint of tremor in left arm. Labs reveal Hgb 11.7 L, Absolute Neuts 8.4 H, Sodium 132 L, Chloride 99 L, BUN 66 H, Creatinine 3.18 H, BUN/Creatinine Ratio 20.8 H, Glucose 117 H, Troponin I 0.[address] Herrera, Hospitalist, accepted the patient for admission. This plan was discussed with the patient and she was agreeable with this plan. - Diagnoses Provider Diagnoses: Acute on chronic renal failure, Elevated troponin, General weakness Discharge ED - Sign-Out/Discharge Documenting (check all that apply): Patient Departure - Admission - Discharge Plan Condition: Stable Disposition: ADMITTED TO [facility] Referrals: Chloe Singh PA [Primary Care Provider] - - Attestation Statements Document Initiated by Scribe: Yes Documenting Scribe: Barrera Crouch Provider For Whom Scribe is Documenting (Include Credential): Armando Dunham DO Scribe Attestation: IBarrera, scribed for Armando Dunham DO on 03/15/19 at 1838. Status of Scribe Document: Ready
[2019-03-15] MEDS ORDERED: NS 0.9% 1000 ML** 1,000 ML IV ONE (17:50)
[2019-03-15 17:59] LABS: ABS Basophils 0.1 10^3/ul (0-0.2); ABS Eosinophils 0.2 10^3/ul (0-0.6); ABS Lymphocytes 1.4 10^3/ul (1.0-4.8); ABS Monocytes 0.7 10^3/ul (0-0.8); ABS Neutrophils 8.4 10^3/ul (1.5-7.7); Eosinophil % 1.6 %; Hematocrit 36 % (35-47); Hemoglobin 11.7 g/dL (12.0-16.0); Lymphocyte % 12.7 %; Mean Corpuscular HGB Conc 32 g/dL (31-36); Mean Corpuscular Hemoglobin 31 pg (27-31); Mean Corpuscular Volume 97 fL (80-97); Mean Platelet Volume 7.4 fL (7.4-10.4); Platelet Count 303 10^3/uL (150-450); Red Blood Count 3.74 10^6 /uL (3.70-4.87); Red Cell Distribution Width 15 % (10-15); White Blood Count 10.8 10^3/uL (3.5-10.8)
[2019-03-15 18:18] LABS: ALT 23 U/L (7-52); AST 19 U/L (13-39); Albumin 3.9 g/dL (3.2-5.2); Albumin/Globulin Ratio 1.3 (1-3); Alkaline Phosphatase 73 U/L (34-104); Anion Gap 9 mmol/L (2-11); BUN/Creatinine Ratio 20.8 (8-20); Blood Urea Nitrogen 66 mg/dL (6-24); CO2 Carbon Dioxide 24 mmol/L (22-32); Calcium 9.2 mg/dL (8.6-10.3); Chloride 99 mmol/L (101-111); Creatine Kinase 119 U/L (10-223); EGFR African American 16.9 (>60); Globulin 2.9 g/dL (2-4); Glucose 117 mg/dL (70-100); Potassium 4.3 mmol/L (3.5-5.0); Sodium 132 mmol/L (135-145); Total Protein 6.8 g/dL (6.4-8.9)
[2019-03-15 18:31] LABS: Troponin I 0.04 ng/mL (<0.03)
[2019-03-15] MEDS ORDERED: Acetaminophen TAB* 325 MG PO PRN (19:00)
[2019-03-15] MEDS ORDERED: Senna TAB 8.6 mg* TAB PO PRN (19:31)
[2019-03-15] MEDS ORDERED: Nitroglycerin TAB 0.4 MG* 0.4 MG TAB SL PRN (19:31)
[2019-03-15] MEDS ORDERED: Magnesium Hydroxide LIQ* 30 ML UDC PO PRN (19:31)
[2019-03-15 20:23] LABS: TSH (Thyroid Stimulating Horm) 4.67 mcIU/mL (0.34-5.60)
[2019-03-15] MEDS ORDERED: Albuterol HFA INHALER* 8 gm MDI INH PRN (20:59)
[2019-03-15] MEDS ORDERED: Albuterol/Ipratropium NEB.SOL* Albuterol 2.5 MG/Ipratropium 0.5 MG 3 ML INH PRN (21:00)
[2019-03-15] MEDS: Pantoprazole TAB * 40 MG TAB PO SCH (21:07)
[2019-03-15] MEDS: Gabapentin CAP(*) 100 MG PO SCH (21:07)
[2019-03-15] MEDS: Calcium Carbonate TAB* 1250 MG (CALCIUM 500 MG) PO SCH (21:07)
[2019-03-15] MEDS: Baclofen TAB* 10 MG PO SCH (21:07)
[2019-03-15] MEDS: hydrALAZINE TAB* 25 MG PO SCH (21:07)
[2019-03-15] MEDS: NS 0.9% 1000 ML** 1,000 ML IV SCH (21:10)
[2019-03-15 21:46] LABS: Troponin I 0.03 ng/mL (<0.03)
--- NOTE | 2019-03-15 22:28 | HP ---
CC: Dr. Andrew Barron; BLACK Pompa* HISTORY AND PHYSICAL: DATE OF ADMISSION: 03/15/19 PRIMARY CARE PROVIDER: BLACK Pompa ATTENDING PHYSICIAN: Dr. Andrew Barron* (dictated by BLACK Tejada ). CHIEF COMPLAINT: 1. "Trembling." 2. Worsened left upper extremity weakness. HISTORY OF PRESENT ILLNESS: Ms. Aguirre is an 83-year-old female with the past medical history of coronary artery disease; diabetes, diet controlled; hypertension; hyperlipidemia; CKD, stage 3, who presented to the ER today with complaints of worsened left upper extremity weakness and trembling and it is important to note that the patient was discharged on 03/11/19 after a recent admission for UTI with weakness. She was discharged to [place] for subacute rehab. Today, she presents stating she feels "better than I was" but does complain of "trembling" in the upper extremities and lower extremities. She notes that she has a baseline tremor in the bilateral hands, but this has increased to include bilateral upper extremities to the shoulder area as well as bilateral lower extremities, although she notes bilateral lower extremity trembling has subsided since her arrival to the ER. She was sent from [place] with concerns for weakness, tremor, and concern for seizure versus CVA. The patient does note that she has some left upper extremity weakness that is worse than her baseline. Her baseline includes inability to move the left lower extremity without help as well as decreased range of motion in the left upper extremity. She notes she continues to be able to move the left upper extremity but this has decreased. She also reports that she "could not talk." She is a poor historian and is unable to further specify whether she was having difficulty with word finding, difficulty with speech pattern, with more of dysarthria versus difficulty talking through her tremors. She did note she had trouble swallowing earlier easier, which has since resolved. She also reports shortness of breath and wheeze without cough, fever, or chills. She has family at bedside and she and her family are unable to state when last known well was, although they state it was "earlier." A long discussion was had regarding the possibility of a large vessel occlusion and the option for transfer and surgical intervention if this was the case. Both the patient and her family are not interested in surgical intervention and would prefer to forgo this. In the ER, the patient received a full workup. CBC was without gross abnormality. The patient has hyponatremia and elevated creatinine. Troponin was mildly elevated. EKG shows T-wave flattening in lead III, T-wave inversion in V1, both of which are apparent on previous x-ray. There is also a right bundle branch block, which is also apparent on previous x-ray. She was given 1 L of normal saline. She has a chest x-ray that was without acute abnormality. Hospitalist team was asked to evaluate the patient for admission. PAST MEDICAL HISTORY: 1. Coronary artery disease. 2. Diabetes mellitus, noninsulin dependent, diet controlled. 3. Hypertension. 4. Hyperlipidemia. 5. Chronic kidney disease, stage 3. 6. Obstructive sleep apnea, with no intervention. 7. Chronic shoulder pain. 8. Iron deficiency anemia. PAST SURGICAL HISTORY: 1. Diverticulitis with colon resection. 2. Bilateral knee replacement. 3. Hysterectomy. MEDICATIONS: Home medications: 1. Aspirin 81 mg p.o. daily. 2. Atorvastatin 20 mg p.o. at bedtime. 3. Baclofen 10 mg p.o. b.i.d. 4. Calcium carbonate 600 mg p.o. b.i.d. 5. Cod liver oil 1 cap p.o. daily. 6. Diltiazem 240 mg p.o. daily. 7. Docusate 100 mg p.o. daily. 8. Ferrous sulfate 325 mg p.o. daily. 9. Furosemide 20 mg p.o. daily. 10. Gabapentin 100 mg p.o. b.i.d. 11. Hydralazine 25 mg p.o. t.i.d. 12. Latanoprost 1 drop to both eyes at bedtime. 13. Lisinopril 10 mg p.o. daily. 14. Magnesium hydroxide 30 mL p.o. q.4 hours p.r.n. 15. Multivitamins/minerals 1 tab p.o. daily. 16. Nitroglycerin 0.4 mg sublingual q.5 minutes p.r.n. chest pain. 17. Omeprazole 20 mg p.o. b.i.d. 18. Oxycodone/acetaminophen 5/325 one to two tabs p.o. t.i.d. p.r.n. pain, MDD 6. 19. Potassium chloride 10 mEq p.o. daily. 20. Senna tab, 1 tab p.o. daily p.r.n. 21. Valacyclovir 500 mg p.o. b.i.d. DRUG ALLERGIES: PENICILLIN. FAMILY HISTORY: Mother had diabetes mellitus. The patient has brothers and sisters with a history of cancer. Negative for CVA and heart disease. SOCIAL HISTORY: The patient denies current or former use of tobacco. She does not use alcohol. She lives at [facility], but is currently at [facility] for subacute rehab. In the event that she is unable to make her own medical decision, she has appointed her son, Stephen Perdomo, to be her surrogate decision maker. REVIEW OF SYSTEMS: A 14-point review of systems has been performed and all the pertinent positives and negatives are in the HPI. Other systems are negative. PHYSICAL EXAMINATION GENERAL: Ms. Aguirre is a well-developed, well-nourished, overweight, older, black woman, who is sitting up in bed. She appears to be in no acute distress. She has clear speech without dysarthria, although appears mildly confused at times which is intermittent. HEENT: PERRL, extraocular movements are intact. Peripheral visual cardenas are grossly intact. Nonicteric sclerae. Hearing, the patient is hard of hearing. Oral mucous membranes are moist. There are no lesions. The pharynx is clear without exudate or erythema. The tongue is at midline. The palate elevates symmetrically. PULMONARY: Symmetrical chest expansion without use of accessory muscles. Clear to auscultation bilaterally. No wheezing. No rhonchi, rales. CARDIOVASCULAR: Regular rate and rhythm with S1 and S2 present. No murmurs, rubs, clicks, or gallops. There is no JVD or peripheral edema. ABDOMEN: Obese. Bowel sounds in all quadrants. Soft and nontender to palpation. MUSCULOSKELETAL: The patient does have rhythmic jerking motion to bilateral upper extremities without any obvious tremulous activity to the bilateral hands. This does not occur in the lower extremities. She is unable to move the left leg which is reportedly her baseline. She has decreased range of motion to the left arm. NEUROLOGIC: The patient is awake. She is alert and oriented x3. Cranial nerves II through XII are grossly intact, although the patient notes tenderness to palpation when facial nerve is examined. Right lower extremity with 4/5 strength. Bilateral upper extremities with 4/5 strength. [employer] strength is equal. Left lower extremity with 1/5 strength. DIAGNOSTIC STUDIES/LAB DATA: CBC unremarkable. Sodium 132, creatinine 3.18. Troponin 0.04. 1. Chest x-ray: Impression: No radiographic evidence for acute cardiopulmonary abnormality on this portable chest x-ray. 2. EKG: T-wave flattening in lead III, T-wave inversion in V1, right bundle branch block, all present on previous EKG. ASSESSMENT AND PLAN: Ms. Aguirre is an 83-year-old female with the past medical history of coronary artery disease; diabetes, diet controlled; hypertension; hyperlipidemia; chronic kidney disease, stage 3, who presented to the ER today with complaints of "trembling" and worsening weakness in the left upper extremity. She will be admitted for: 1. Left upper extremity weakness. The patient presents with left upper extremity weakness. She does have weakness at baseline, but notes that this is mildly worse than normal. She does also have left lower extremity weakness and she notes that this is her baseline and there has been no change. A CT of the head has been ordered and it is pending. The patient was offered a CTA of the head to rule out large vessel occlusion, although this would be difficult with her elevated creatinine. She was offered an MRI of the brain but has declined stating she is "terrified" of MRIs. A long discussion was had with the patient and her family regarding further management and the option for surgical removal if a large vessel occlusion was present. At this time, the patient and her family elect to forgo this as they feel her quality of life would not be improved with surgical intervention stating she already has baseline decreased range of motion and left upper extremity weakness and has lost approximately 10 to 15 degrees range of motion since yesterday. We will await results of CT of the head. If there is no apparent bleed, the patient will be started on Plavix. She is already on aspirin. Neuro checks and seizure precautions have been ordered. An ultrasound of bilateral carotids has been ordered for tomorrow. Neuro has been consulted and Dr. Montes has made recommendations which are as above. 2. Tremors. The patient complains of tremors that she states has increased from bilateral hands to the bilateral upper extremities up to the shoulder and bilateral lower extremities. At this time, she has no bilateral lower extremity tremors, but does have a rhythmic movement to the bilateral upper extremities that appears to start in the shoulder area. At this time, B12 and TSH are pending. I do not believe that this is a seizure-like activity. We will continue to monitor. 3. Elevated troponin. The patient's troponin is 0.04. I suspect that this is likely due to dehydration and chronic kidney disease as she denies chest pain and her EKG has no acute changes. We will trend troponins x3 and continue to monitor. Also repeat EKG in the a.m. 4. Acute renal failure on chronic kidney disease. I believe that this is likely secondary to dehydration. The patient has received 1 L of IV fluid bolus. She will be continued on IV fluids at 100 cc per hour overnight. We will hold her lisinopril and Lasix. Repeat creatinine in the a.m. 5. Coronary artery disease. Continue diltiazem and nitro. Hold lisinopril. 6. Diabetes mellitus. Diet controlled. We will do daily a.m. fingersticks and hemoglobin A1c. 7. Hypertension. Continue hydralazine and diltiazem. We will hold Lasix and lisinopril in the setting of acute kidney injury. 8. Hyperlipidemia. Continue statin. 9. Iron deficiency anemia. Continue ferrous sulfate. 10. Chronic pain. Continue gabapentin and baclofen. 11. Gastroesophageal reflux disease. Continue omeprazole. 12. Obstructive sleep apnea. The patient is not on any machine for this at this time. 13. DVT prophylaxis. According to the DVT risk assessment, the patient scores 4 placing her on a high risk. She will be started on heparin. 14. Code status. DNR. TIME SPENT: Approximately 60 minutes was spent on this admission, greater than half that time was spent [id number] with the patient and her family members obtaining history, performing physical, and reviewing the plan of care. The case has been discussed with my attending, Dr. Barron, who is in agreement with the plan of care. BLACK COMBS [id number]/[facility] #: [id number] [facility] HOSPITALUrszula
[2019-03-15] MEDS ORDERED: hydrALAZINE IV* 20 MG/ML VIAL IV SLOW PU ONE (23:35)
[2019-03-16] MEDS: ValACYclovir (*) 500 MG TAB PO SCH ×3 (00:20→21:51)
[2019-03-16] MEDS: Heparin VIAL(*) 5000 UNITS/ML VIAL (FIVE THOUSAND) SUBCUT SCH ×4 (00:20→21:51)
[2019-03-16 00:45] LABS: Troponin I 0.03 ng/mL (<0.03)
[2019-03-16 03:35] LABS: Troponin I 0.04 ng/mL (<0.03)
[2019-03-16 07:16] LABS: ABS Eosinophils 0.2 10^3/ul (0-0.6); ABS Lymphocytes 0.8 10^3/ul (1.0-4.8); ABS Monocytes 0.6 10^3/ul (0-0.8); ABS Neutrophils 6.8 10^3/ul (1.5-7.7); Eosinophil % 2.7 %; Hematocrit 36 % (35-47); Hemoglobin 11.9 g/dL (12.0-16.0); Lymphocyte % 9.9 %; Mean Corpuscular HGB Conc 33 g/dL (31-36); Mean Corpuscular Hemoglobin 32 pg (27-31); Mean Corpuscular Volume 97 fL (80-97); Mean Platelet Volume 7.2 fL (7.4-10.4); Nucleated Red Blood Cells % 0.2; Platelet Count 296 10^3/uL (150-450); Red Cell Distribution Width 14 % (10-15); White Blood Count 8.4 10^3/uL (3.5-10.8)
[2019-03-16 07:28] LABS: BUN/Creatinine Ratio 26.3 (8-20); Calcium 9.3 mg/dL (8.6-10.3); EGFR African American 28.1 (>60); EGFR Non-African American 23.2 (>60); HDL Cholesterol 67.2 mg/dL
[2019-03-16] MEDS: Ferrous Sulfate TAB* 325 MG PO SCH (09:00)
[2019-03-16] MEDS: Calcium Carbonate TAB* 1250 MG (CALCIUM 500 MG) PO SCH ×2 (09:07→21:52)
[2019-03-16] MEDS: Gabapentin CAP(*) 100 MG PO SCH ×2 (09:08→21:52)
[2019-03-16] MEDS: Diltiazem CD CAP* 240 MG PO SCH (09:08)
[2019-03-16] MEDS: Pantoprazole TAB * 40 MG TAB PO SCH ×2 (09:08→21:51)
[2019-03-16] MEDS: Docusate CAP* 100 MG PO SCH (09:09)
[2019-03-16] MEDS: hydrALAZINE TAB* 25 MG PO SCH ×3 (09:09→21:52)
[2019-03-16] MEDS: Multivitamins/Minerals TAB PO SCH (09:09)
[2019-03-16] MEDS: Clopidogrel TAB* 75 MG PO SCH (09:10)
[2019-03-16] MEDS: Baclofen TAB* 10 MG PO SCH ×2 (09:11→21:53)
[2019-03-16] MEDS: Aspirin EC TAB* 81 MG TAB.EC PO SCH (09:11)
--- NOTE | 2019-03-16 09:12 | PN ---
Subjective Date of Service: 03/16/19 Interval History: Neris had an uneventful night. She is eating her breakfast when I come to see her this morning. She thinks she is feeling "a little better" but not back to normal. She is not forthcoming with the history but ultimately tells me that she has been feeling this way for "a while," but I am unclear what changed yesterday that made her come to the Ed. She says that she was unable to eat and drink due to upper extremity weakness and pain. Objective Active Medications: Acetaminophen (Tylenol Tab*) 650 mg PO Q4H PRN PRN Reason: mild to moderate pain Albuterol (Ventolin Hfa Inhaler*) 2 puff INH Q2H PRN PRN Reason: SOB/WHEEZING Albuterol/Ipratropium (Duoneb (Albuterol 2.5 Mg/Ipratropium 0.5 Mg)) 1 neb INH Q6H PRN PRN Reason: SOB/WHEEZING Aspirin (Aspirin Ec Tab*) 81 mg PO QAM [facility] Atorvastatin Calcium (Lipitor*) 20 mg PO QPM [facility] Baclofen (Lioresal Tab*) 10 mg PO BID [facility] Last Admin: 03/15/19 21:07 Dose: 10 mg Calcium Carbonate (Calcium Carbonate Tab*) 625 mg PO BID [facility] Last Admin: 03/15/19 21:07 Dose: 625 mg Clopidogrel Bisulfate (Plavix Tab*) 75 mg PO DAILY [facility] Diltiazem HCl (Cardizem Cd Cap*) 240 mg PO QAM [facility] Docusate Sodium (Colace Cap*) 100 mg PO QAM [facility] Ferrous Sulfate (Ferrous Sulfate Tab*) 325 mg PO QAM [facility] Gabapentin (Neurontin Cap(*)) 100 mg PO BID [facility] Last Admin: 03/15/19 21:07 Dose: 100 mg Heparin Sodium (Porcine) (Heparin Vial(*)) 5,000 units SUBCUT Q8HR [facility] Last Admin: 03/16/19 05:34 Dose: 5,000 units Hydralazine HCl (Apresoline Tab*) 25 mg PO TID [facility] Last Admin: 03/15/19 21:07 Dose: 25 mg Sodium Chloride (Ns 0.9% 1000 Ml) 1,000 mls @ 75 mls/hr IV PER RATE [facility] Last Admin: 03/15/19 21:10 Dose: 75 mls/hr Latanoprost (Xalatan 0.005%*) 1 drop BOTH EYES QPM [facility] Magnesium Hydroxide (Milk Of Magnesia Liq*) 30 ml PO Q4H PRN PRN Reason: CONSTIPATION Multivitamins/Minerals (Theragran/Minerals Tab*) 1 tab PO QAM [facility] Nitroglycerin (Nitroglycerin Tab 0.4 Mg*) 0.4 mg SL Q5M PRN PRN Reason: PAIN - CHEST Oxycodone/Acetaminophen (Percocet 5/325 Tab*) 1 tab PO TID PRN PRN Reason: PAIN - MODERATE Pantoprazole Sodium (Protonix Tab*) 40 mg PO BID [facility] Last Admin: 03/15/19 21:07 Dose: 40 mg Senna (Senokot 8.6 Mg Tab*) 1 tab PO QAM PRN PRN Reason: constipation Valacyclovir HCl (Valtrex 500 Mg (*)) 500 mg PO BID [facility]; Protocol Last Admin: 03/16/19 00:20 Dose: 500 mg Vital Signs - 8 hr 03/16/19 03:10 Pulse Rate 77 Blood Pressure 158/55 (mmHg) Oxygen Devices in Use Now: Nasal Cannula Appearance: alert, being fed breakfast by her aide Eyes: - - arcus senilis Ears/Nose/Mouth/Throat: NL Teeth, Lips, Gums, - - dry mucosa Neck: NL Appearance and Movements; NL JVP Respiratory: Symmetrical Chest Expansion and Respiratory Effort Cardiovascular: NL Sounds; No Murmurs; No JVD, RRR Abdominal: NL Sounds; No Tenderness; No Distention Lymphatic: No Cervical Adenopathy Extremities: - Skin: No Rash or Ulcers Neurological: - - she actively resists when I flex her shoulders and does not flex them voluntarily. with intention, she has a coarse tremor that is somewhat myoclonic. it resolves with rest. she can move her toes but does not lift her legs off the bed. Result Diagrams: 03/16/19 06:48 03/16/19 06:48 Assess/Plan/Problems-Billing Assessment: This is an 83 year old woman with history of CKD, CAD, DM who presented to the ED on 03/16 with worsening left upper extremity weakness from baseline. - Patient Problems (1) Upper extremity weakness Current Visit: Yes Status: Acute Code(s): R29.898 - OTH SYMPTOMS AND SIGNS INVOLVING THE MUSCULOSKELETAL SYSTEM SNOMED Code(s): 150212628 Comment: CT brain is normal she refuses an MRI she does have risk factors for CVA but is already on ASA and statin; plavix added last night based on her pain and weakness, I am going to check ESR/CRP to work up Polymyalgia Rheumatica Appreciate neurology consult (2) TIKI (acute kidney injury) Current Visit: No Status: Acute Code(s): N17.9 - ACUTE KIDNEY FAILURE, UNSPECIFIED SNOMED Code(s): 37547783 Comment: CK was normal she has been unable to feed/hydrate herself due to upper extremity weakness, suggesting a prerenal etiology, also improving with IVF, will continue today (3) Tremor Current Visit: Yes Status: Acute Code(s): R25.1 - TREMOR, UNSPECIFIED SNOMED Code(s): 13644091 Comment: unclear chronicity, resolves at rest, appreciate neuro input
[2019-03-16 09:44] LABS: C Reactive Protein 3.19 mg/L (<8.01)
[2019-03-16 11:04] LABS: Erythrocyte Sed Rate 40 mm/Hr (0-29)
[2019-03-16] MEDS: NS 0.9% 1000 ML** 1,000 ML IV SCH (12:05)
[2019-03-16 13:33] LABS: Urine Appearance Cloudy; Urine Bilirubin Negative (Negative); Urine Blood Negative (Negative); Urine Color Yellow; Urine Glucose Negative (Negative); Urine Ketones Negative (Negative); Urine Nitrite Negative (Negative); Urine Protein Negative (Negative); Urine Specific Gravity 1.006 (1.010-1.030); Urine Urobilinogen Negative (Negative)
[2019-03-16 13:35] LABS: Urine Bacteria 2+ (Absent); Urine Red Blood Cell Absent (Absent); Urine Squamous Epithelial Cell Present (Absent); Urine White Blood Cell 3+(>20/hpf) (Absent)
--- NOTE | 2019-03-16 13:49 | CONS ---
CONSULTATION NOTE: DATE OF CONSULT: 03/16/19. PATIENT OF: Dr. Cheng and BLACK Pompa.* HISTORY OF PRESENT ILLNESS: This is an 83-year-old right-handed woman whom I am asked to evaluate for worsening weakness. She and her son notes that she has had some prior left-sided weakness and was recently discharged from home with some generalized weakness secondary to urinary tract infection. Some time yesterday, she became weak, but there was no clear time during the course of the day that this weakness developed. She has coronary artery disease, diabetes, hypertension, obstructive sleep apnea , stage 3 chronic kidney disease, bilateral chronic shoulder pain, and a second - degree heart block. A urine culture grew out E. coli and she was discharged to [facility] and was readmitted from there yesterday. She has had no prior known stroke despite the history of both focal and generalized weakness. She also has a history of iron deficiency anemia. She is status post diverticulitis with colon resection, bilateral knee replacement, bilateral shoulder surgeries, hysterectomy. MEDICATIONS AT HOME: Include: 1. Aspirin 81 mg daily. 2. Atorvastatin 20 mg at bedtime. 3. Baclofen 10 mg b.i.d. 4. Calcium carbonate 600 b.i.d. 5. Cod liver oil 1 cap twice a day. 6. Diltiazem 240 daily. 7. Docusate 100 mg daily. 8. Ferrous sulfate 325 daily. 9. Furosemide 20 mg daily. 10. Gabapentin 100 b.i.d. 11. Hydralazine 25 mg t.i.d. 12. Lisinopril 10 mg daily. 13. Magnesium hydroxide 30 mL q.4 hours p.r.n. 14. Nitroglycerin 0.4 sublingual q.5 minutes p.r.n. chest pain. 15. Omeprazole 20 mg b.i.d. 16. Oxycodone p.r.n. pain. 17. Valacyclovir 500 mg b.i.d. DRUG ALLERGIES: Include PENICILLIN. FAMILY HISTORY: Mother has diabetes mellitus. Brother and sister has history of cancer. Negative for stroke or heart disease. SOCIAL HISTORY: She does not use tobacco or alcohol. She lives in [facility] [place] , but is now currently in subacute rehab. REVIEW OF SYSTEMS: Negative in all 14 spheres other than the HPI. PHYSICAL EXAM: On exam, temperature 98.3, pulse 73, respirations 16, blood pressure 147/51. She is alert and oriented with normal speech and comprehension. She and her son note that yesterday her voice was soft, but now it is back to normal. There has been no neglect or sensory changes. Cranial nerves II through XII are intact. There are no visual field deficits. Face is symmetric. Discs sharp. Motor exam revealed normal tone. She has diffuse trace weakness throughout with 5-/5 strength in the left side. Limited movement at the shoulder. There is a bilateral intention tremor. Sensation intact to light touch. Reflexes trace at ankles, 1 throughout. DIAGNOSTIC STUDIES/LAB DATA: CT scan films were reviewed and were negative. Blood work includes a sed rate of 40, normal CBC. Chemistries showing an LDL of 61, HDL 67, BUN 54, creatinine 2.05. Troponin 0.04. B12 and thyroid were normal. Normal CPK and liver function test. IMPRESSION AND RECOMMENDATIONS: Neirs appears to have had the stroke without clear last known well, she was not a tPA candidate. I had discussed the case with Dr. Lezama yesterday and recommended a clear discussion of whether to pursue a workup for LVO to be had with her and her son. She was still within a time window where that was a possible treatment pathway to take. They opted not to do this for several reasons including that there was no major change from baseline, and so they opted not to pursue imaging of her blood vessels with the possibility of pursuing transfer for clot retrieval until this is not done and she would be given her kidney status. At this point, we suggest check carotid Doppler to make sure that there is no large significant degree of stenosis in her carotid Doppler and we check an MRI scan to detect the degree of stroke with her cardiovascular risk factors including her hypertension and diabetes. It would make sense for her to be on aspirin and Plavix for a month and then afterwards to be on aspirin 325 a day. She does have a bilateral intention tremor, but I do not think that that needs symptomatic treatment at this time. It is possible that this could be from cardioembolic source rather than atherosclerotic, this is less likely in this particular patient and we should still get a cardiac echo with bubble study. Thank you for sharing her care. [id number]/[facility] #: [id number] LESLIE
[2019-03-16] MEDS: Atorvastatin* 20 MG TAB PO SCH (17:32)
[2019-03-16] MEDS: Latanoprost 0.005%* 2.5 ml BTL BOTH EYES SCH (17:32)
[2019-03-17] MEDS: NS 0.9% 1000 ML** 1,000 ML IV SCH ×2 (01:23→17:55)
[2019-03-17] MEDS: Heparin VIAL(*) 5000 UNITS/ML VIAL (FIVE THOUSAND) SUBCUT SCH ×3 (05:52→21:24)
[2019-03-17 06:24] LABS: Hematocrit 35 % (35-47); Hemoglobin 11.4 g/dL (12.0-16.0); Mean Corpuscular HGB Conc 33 g/dL (31-36); Mean Corpuscular Hemoglobin 33 pg (27-31); Mean Corpuscular Volume 99 fL (80-97); Mean Platelet Volume 7.5 fL (7.4-10.4); Platelet Count 274 10^3/uL (150-450); Red Cell Distribution Width 15 % (10-15); White Blood Count 9.1 10^3/uL (3.5-10.8)
[2019-03-17 06:28] LABS: INR 0.89 (0.82-1.09)
[2019-03-17 06:42] LABS: BUN/Creatinine Ratio 31.2 (8-20); Calcium 8.7 mg/dL (8.6-10.3); EGFR African American 44.4 (>60); EGFR Non-African American 36.7 (>60); Potassium 3.9 mmol/L (3.5-5.0)
[2019-03-17] MEDS: Aspirin EC TAB* 81 MG TAB.EC PO SCH (08:55)
[2019-03-17] MEDS: Gabapentin CAP(*) 100 MG PO SCH ×2 (08:55→21:17)
[2019-03-17] MEDS: Multivitamins/Minerals TAB PO SCH (08:56)
[2019-03-17] MEDS: Baclofen TAB* 10 MG PO SCH ×2 (08:57→21:16)
[2019-03-17] MEDS: Pantoprazole TAB * 40 MG TAB PO SCH ×2 (08:58→21:18)
[2019-03-17] MEDS: Diltiazem CD CAP* 240 MG PO SCH (08:58)
[2019-03-17] MEDS: ValACYclovir (*) 500 MG TAB PO SCH ×2 (08:58→21:18)
[2019-03-17] MEDS: hydrALAZINE TAB* 25 MG PO SCH ×3 (08:58→21:17)
[2019-03-17] MEDS: Docusate CAP* 100 MG PO SCH (08:59)
[2019-03-17] MEDS: Clopidogrel TAB* 75 MG PO SCH (08:59)
[2019-03-17] MEDS: Ferrous Sulfate TAB* 325 MG PO SCH (09:00)
[2019-03-17] MEDS: Calcium Carbonate TAB* 1250 MG (CALCIUM 500 MG) PO SCH ×2 (09:00→21:20)
--- NOTE | 2019-03-17 10:14 | ECHO ---
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 History: Coronary artery disease. Risk factors: Hypertension. Diabetes mellitus. Obese. Dyslipidemia. Conclusions Summary: - Left ventricle: The cavity size is normal. Wall thickness is mildly to moderately increased with additional basal septal hypertrophy. Systolic function is hyperdynamic. The estimated ejection fraction is > 70% Wall motion is normal; there are no regional wall motion abnormalities. The outflow tract shows a velocity flow profile with aliasing and increased velocity, suggestive of dysnamic obstruction up to peak 22 mmHg. - Right ventricle: The cavity size is at the upper limits of normal. Systolic function is normal. Systolic pressure is at the upper limits of normal. - Left atrium: The atrium is mildly dilated. - Atrial septum: Negative Bubble Study. Images 1 and 2. - No significant valvular abnormalities noted. Recommendations: Compared to prior study from 06/2014, no clinically significant changes noted. Study data: Transthoracic echocardiogram. Procedure: Transthoracic echocardiography was performed. Image quality was fair. A bubble study was performed. Complete 2D, spectral Doppler, and color flow Doppler. Location: Bedside. Patient status: Inpatient. Patient room number: 442-02. Rhythm: Heart block. 1st Degree. Findings Left ventricle: The cavity size is normal. Wall thickness is mildly to moderately increased with additional basal septal hypertrophy. Systolic function is hyperdynamic. The estimated ejection fraction is > 70% Wall motion is normal; there are no regional wall motion abnormalities. The outflow tract shows a velocity flow profile with aliasing and increased velocity, suggestive of dysnamic obstruction up to peak 22 mmHg. Left ventricular diastolic function parameters are indeterminate. Right ventricle: The cavity size is at the upper limits of normal. Systolic function is normal. Systolic pressure is at the upper limits of normal. Left atrium: The atrium is mildly dilated. Right atrium: The atrium is mildly dilated. Atrial septum: A PFO is not demonstrated by color Doppler or agitated saline contrast. Negative Bubble Study. Images 1 and 2. Mitral valve: Mitral annulus appears mildly calcified. The leaflets are mildly thickened. There is no evidence of stenosis. There is trace to mild regurgitation. Aortic valve: The valve is trileaflet. The leaflets are mildly thickened. There is no evidence of stenosis. There is no significant regurgitation. Tricuspid valve: The leaflets are normal thickness. There is no evidence of stenosis. There is mild regurgitation. Pulmonic valve: The leaflets are normal thickness. There is no evidence of stenosis. There is trace regurgitation. Aorta: Aortic root: The aortic root is appears normal. Ascending aorta: The ascending aorta is appears normal. Aortic arch: The aortic arch is appears normal. Pericardium: There is no significant pericardial effusion. Pulmonary arteries: The main pulmonary artery is normal-sized. Systolic pressure is at the upper limits of normal. Systemic veins: Inferior vena cava: The vessel is dilated. There is (>= 50%) respiratory change in the IVC dimension. Measurements Left ventricle Value Ref Aortic valve continued Value Ref RADHA, LAX 4.0 cm 3.8 - 5.2 Peak v, S 2.4 m/sec ----- ESD, LAX 3.1 cm 2.2 - 3.5 VTI, S 56.0 cm ----- FS, LAX (L) 23 % Mean grad, S 14.0 mm Hg ----- PW, ED, LAX (H) 1.3 cm 0.6 - 0.9 Peak grad, S 21.0 mm Hg ----- FS (L) 23 % - 45 LVOT/AV, VTI ratio 0.84 ----- PW, ED (H) 1.3 cm 0.6 - 0.9 DEVANTE, VTI 2.64 cm^2 ----- E', lat cullen, TDI (L) 4.4 cm/sec >=10.0 DEVANTE, Vmax 2.75 cm^2 - ---- E/e', lat cullen, 21 TDI Mitral valve Value Ref E', med cullen, TDI (L) 4.8 cm/sec >=7.0 Peak E 0.93 m/sec - ---- E/e', med cullen, 19 Peak A 1.62 m/sec ---- - TDI Decel time 451 ms ----- E', avg, TDI 4.6 cm/sec PHT 125 ms ---- - E/e', avg, TDI (H) 20 <=14 Mean grad, D 4.0 mm Hg - ---- Peak grad, D 11.0 mm Hg ----- LVOT Value Ref Peak E/A ratio 0.6 ----- Diam, S 2.00 cm MVA, PHT 1.6 cm^2 ----- Area 3.1 cm^2 MVA, LVOT cont 2.5 cm^2 ----- Peak frankie, S 2.1 m/sec VTI, S 47.0 cm Pulmonic valve Value Ref Peak grad, S 19 mm Hg Peak v, S 1.16 m/sec ----- Mean grad, S 12 mm Hg Peak grad, S 5.0 mm Hg ----- SV 111 ml SV/bsa 53 ml/m^2 Tricuspid valve Value Ref TR peak v 2.6 m/sec <=2.8 Ventricular septum Value Ref Peak RV-RA grad, S 27 mm Hg ----- IVS, ED (H) 1.4 cm 0.6 - 0.9 Max TR frankie 2.61 m/sec ----- Right ventricle Value Ref Aortic root Value Ref RADHA, LAX 3.8 cm Root diam 3.2 cm <4.2 RADHA minor ax, A4C 3.5 cm 1.9 - 3.5 mid Ascending aorta Value Ref Pressure, S 35 mm Hg AAo AP diam, S 3.4 cm ----- Left atrium Value Ref Aortic arch Value Ref AP dim, ES 3.50 cm 2.70 - Arch diam 2.1 cm ----- 3.80 ML dim, A4C 4.4 cm Decending aorta Value Ref SI dim, A4C 5.9 cm Sabi peak frankie 1.14 m/sec ----- Vol/bsa, ES, 1-p 37 ml/m^2 11 - 40 A4C Pulmonary artery Value Ref Vol/bsa, ES, A/L (H) 37 ml/m^2 16 - 34 Pressure, S 30.0 mm Hg ----- Right atrium Value Ref Inferior vena cava Value Ref SI dim, ES (H) 5.6 cm 3.4 - 5.3 Diam 2.4 cm ----- ML dim, ES, A4C 3.6 cm 2.6 - 4.4 Estimated RAP 8 mm Hg Aortic valve Value Ref Cullen diam, ED 1.6 cm Cullen diam/bsa, ED 0.8 cm/m^2 Legend: (L) and (H) man values outside specified reference range. Prepared and electronically signed by Kike Cristina MD 03/17/2019 10:13
--- NOTE | 2019-03-17 15:31 | PN ---
Subjective Date of Service: 03/17/19 Interval History: No overnight events. Neris feels a little better this morning, thinks her strength might be slightly improved. She has no complaints. She was being fed her breakfast when I saw her this morning. Objective Active Medications: Acetaminophen (Tylenol Tab*) 650 mg PO Q4H PRN PRN Reason: mild to moderate pain Albuterol (Ventolin Hfa Inhaler*) 2 puff INH Q2H PRN PRN Reason: SOB/WHEEZING Albuterol/Ipratropium (Duoneb (Albuterol 2.5 Mg/Ipratropium 0.5 Mg)) 1 neb INH Q6H PRN PRN Reason: SOB/WHEEZING Aspirin (Aspirin Ec Tab*) 81 mg PO QAM [facility] Last Admin: 03/17/19 08:55 Dose: 81 mg Atorvastatin Calcium (Lipitor*) 20 mg PO QPM [facility] Last Admin: 03/16/19 17:32 Dose: 20 mg Baclofen (Lioresal Tab*) 10 mg PO BID [facility] Last Admin: 03/17/19 08:57 Dose: 10 mg Calcium Carbonate (Calcium Carbonate Tab*) 625 mg PO BID [facility] Last Admin: 03/17/19 09:00 Dose: 625 mg Clopidogrel Bisulfate (Plavix Tab*) 75 mg PO DAILY [facility] Last Admin: 03/17/19 08:59 Dose: 75 mg Diltiazem HCl (Cardizem Cd Cap*) 240 mg PO QAM [facility] Last Admin: 03/17/19 08:58 Dose: 240 mg Docusate Sodium (Colace Cap*) 100 mg PO QAM [facility] Last Admin: 03/17/19 08:59 Dose: 100 mg Ferrous Sulfate (Ferrous Sulfate Tab*) 325 mg PO QAM [facility] Last Admin: 03/17/19 09:00 Dose: 325 mg Gabapentin (Neurontin Cap(*)) 100 mg PO BID [facility] Last Admin: 03/17/19 08:55 Dose: 100 mg Heparin Sodium (Porcine) (Heparin Vial(*)) 5,000 units SUBCUT Q8HR [facility] Last Admin: 03/17/19 13:54 Dose: 5,000 units Hydralazine HCl (Apresoline Tab*) 25 mg PO TID [facility] Last Admin: 03/17/19 13:53 Dose: 25 mg Sodium Chloride (Ns 0.9% 1000 Ml) 1,000 mls @ 75 mls/hr IV PER RATE [facility] Last Admin: 03/17/19 01:23 Dose: 75 mls/hr Latanoprost (Xalatan 0.005%*) 1 drop BOTH EYES QPM [facility] Last Admin: 03/16/19 17:32 Dose: 1 drop Magnesium Hydroxide (Milk Of Magnesia Liq*) 30 ml PO Q4H PRN PRN Reason: CONSTIPATION Multivitamins/Minerals (Theragran/Minerals Tab*) 1 tab PO QAM [facility] Last Admin: 03/17/19 08:56 Dose: 1 tab Nitroglycerin (Nitroglycerin Tab 0.4 Mg*) 0.4 mg SL Q5M PRN PRN Reason: PAIN - CHEST Oxycodone/Acetaminophen (Percocet 5/325 Tab*) 1 tab PO TID PRN PRN Reason: PAIN - MODERATE Pantoprazole Sodium (Protonix Tab*) 40 mg PO BID [facility] Last Admin: 03/17/19 08:58 Dose: 40 mg Senna (Senokot 8.6 Mg Tab*) 1 tab PO QAM PRN PRN Reason: constipation Valacyclovir HCl (Valtrex 500 Mg (*)) 500 mg PO BID [facility]; Protocol Last Admin: 03/17/19 08:58 Dose: 500 mg Vital Signs - 8 hr 03/17/19 03/17/19 03/17/19 08:00 08:41 08:55 Temperature 97.5 F Pulse Rate 69 Respiratory 16 16 16 Rate Blood Pressure 151/57 (mmHg) O2 Sat by Pulse 100 Oximetry 03/17/19 03/17/19 11:42 11:56 Temperature 98.5 F Pulse Rate 71 Respiratory 16 16 Rate Blood Pressure 178/70 (mmHg) O2 Sat by Pulse 99 Oximetry Oxygen Devices in Use Now: Nasal Cannula Appearance: alert, no distress, comfortable Eyes: No Scleral Icterus, - - arcus senilis Ears/Nose/Mouth/Throat: NL Teeth, Lips, Gums Neck: NL Appearance and Movements; NL JVP Respiratory: Symmetrical Chest Expansion and Respiratory Effort, Clear to Auscultation Cardiovascular: NL Sounds; No Murmurs; No JVD, RRR Abdominal: NL Sounds; No Tenderness; No Distention Lymphatic: No Cervical Adenopathy Neurological: - - RUE 4/5, LUE 3/5. RLE 4/5, LLE 2/5. face is symmetric. speech is fluent and accurate. comprehension is in tact. difficult to test coordination due to weakness. intention tremor. Result Diagrams: 03/17/19 05:47 03/17/19 05:47 Microbiology and Other Data: Microbiology 03/16/19 13:20 Urine Culture - Preliminary Urine Escherichia Coli Assess/Plan/Problems-Billing Assessment: This is an 83 year old woman with history of CKD, CAD, DM who presented to the ED on 03/16 with worsening left upper extremity weakness from baseline. - Patient Problems (1) CVA (cerebral vascular accident) Current Visit: Yes Status: Acute Code(s): I63.9 - CEREBRAL INFARCTION, UNSPECIFIED SNOMED Code(s): 728906726 Comment: CT brain is normal and she refuses an MRI, but her clinical findings are consistent with an acute CVA neurology following continue asa, plavix, statin (2) Upper extremity weakness Current Visit: Yes Status: Acute Code(s): R29.898 - OTH SYMPTOMS AND SIGNS INVOLVING THE MUSCULOSKELETAL SYSTEM SNOMED Code(s): 490006733 Comment: likely multifactorial and related both to CVA and to severe b/l shoulder OA (3) TIKI (acute kidney injury) Current Visit: No Status: Acute Code(s): N17.9 - ACUTE KIDNEY FAILURE, UNSPECIFIED SNOMED Code(s): 62068621 Comment: CK was normal she has been unable to feed/hydrate herself due to upper extremity weakness, suggesting a prerenal etiology, also improving with IVF, will continue today (4) Tremor Current Visit: Yes Status: Acute Code(s): R25.1 - TREMOR, UNSPECIFIED SNOMED Code(s): 82568164 Comment: intention
[2019-03-17] MEDS: Atorvastatin* 20 MG TAB PO SCH (17:55)
[2019-03-17] MEDS: Lisinopril TAB* 10 MG PO SCH (17:55)
[2019-03-17] MEDS: Latanoprost 0.005%* 2.5 ml BTL BOTH EYES SCH (17:55)
[2019-03-17] MEDS: oxyCODONE/Acetamin 5/325 MG* TAB PO PRN (21:41)
[2019-03-17] MEDS ORDERED: Zolpidem TAB* 5 MG PO ONE (23:34)
[2019-03-18] MEDS: oxyCODONE/Acetamin 5/325 MG* TAB PO PRN ×3 (06:05→23:16)
[2019-03-18] MEDS: Heparin VIAL(*) 5000 UNITS/ML VIAL (FIVE THOUSAND) SUBCUT SCH ×3 (06:06→20:22)
[2019-03-18] MEDS: NS 0.9% 1000 ML** 1,000 ML IV SCH (07:52)
[2019-03-18] MEDS: ValACYclovir (*) 500 MG TAB PO SCH ×2 (07:52→20:19)
[2019-03-18] MEDS: Pantoprazole TAB * 40 MG TAB PO SCH ×2 (07:52→20:19)
[2019-03-18] MEDS: Aspirin EC TAB* 81 MG TAB.EC PO SCH (07:53)
[2019-03-18] MEDS: Diltiazem CD CAP* 240 MG PO SCH (07:53)
[2019-03-18] MEDS: hydrALAZINE TAB* 25 MG PO SCH ×3 (07:54→20:19)
[2019-03-18] MEDS: Clopidogrel TAB* 75 MG PO SCH (07:54)
[2019-03-18] MEDS: Multivitamins/Minerals TAB PO SCH (07:54)
[2019-03-18] MEDS: Ferrous Sulfate TAB* 325 MG PO SCH (07:54)
[2019-03-18] MEDS: Calcium Carbonate TAB* 1250 MG (CALCIUM 500 MG) PO SCH ×2 (07:55→20:19)
[2019-03-18] MEDS: Lisinopril TAB* 10 MG PO SCH (07:55)
[2019-03-18] MEDS: Gabapentin CAP(*) 100 MG PO SCH ×2 (07:56→20:18)
[2019-03-18] MEDS: Baclofen TAB* 10 MG PO SCH ×2 (07:56→20:19)
[2019-03-18] MEDS: Docusate CAP* 100 MG PO SCH (07:57)
[2019-03-18] MEDS: Latanoprost 0.005%* 2.5 ml BTL BOTH EYES SCH (17:20)
[2019-03-18] MEDS: Atorvastatin* 20 MG TAB PO SCH (17:20)
[2019-03-18] MEDS ORDERED: LORazepam TAB(*) 0.5 MG PO ONE (17:27)
--- NOTE | 2019-03-18 17:35 | PN ---
Subjective Date of Service: 03/18/19 Interval History: No overnight events. Generally she feels about the same, though of note she was feeding herself breakfast this morning, and has required an aide to do so the past two days. She still requires maximum assist when transferring. She also complains of spasm.s Objective Active Medications: Acetaminophen (Tylenol Tab*) 650 mg PO Q4H PRN PRN Reason: mild to moderate pain Albuterol (Ventolin Hfa Inhaler*) 2 puff INH Q2H PRN PRN Reason: SOB/WHEEZING Albuterol/Ipratropium (Duoneb (Albuterol 2.5 Mg/Ipratropium 0.5 Mg)) 1 neb INH Q6H PRN PRN Reason: SOB/WHEEZING Aspirin (Aspirin Ec Tab*) 81 mg PO QAM [facility] Last Admin: 03/18/19 07:53 Dose: 81 mg Atorvastatin Calcium (Lipitor*) 20 mg PO QPM [facility] Last Admin: 03/18/19 17:20 Dose: 20 mg Baclofen (Lioresal Tab*) 10 mg PO BID [facility] Last Admin: 03/18/19 07:56 Dose: 10 mg Calcium Carbonate (Calcium Carbonate Tab*) 625 mg PO BID [facility] Last Admin: 03/18/19 07:55 Dose: 625 mg Clopidogrel Bisulfate (Plavix Tab*) 75 mg PO DAILY [facility] Last Admin: 03/18/19 07:54 Dose: 75 mg Diltiazem HCl (Cardizem Cd Cap*) 240 mg PO QAM [facility] Last Admin: 03/18/19 07:53 Dose: 240 mg Docusate Sodium (Colace Cap*) 100 mg PO QAM [facility] Last Admin: 03/18/19 07:57 Dose: Not Given Ferrous Sulfate (Ferrous Sulfate Tab*) 325 mg PO QAM [facility] Last Admin: 03/18/19 07:54 Dose: 325 mg Gabapentin (Neurontin Cap(*)) 100 mg PO BID [facility] Last Admin: 03/18/19 07:56 Dose: 100 mg Heparin Sodium (Porcine) (Heparin Vial(*)) 5,000 units SUBCUT Q8HR [facility] Last Admin: 03/18/19 14:17 Dose: 5,000 units Hydralazine HCl (Apresoline Tab*) 25 mg PO TID [facility] Last Admin: 03/18/19 14:17 Dose: 25 mg Sodium Chloride (Ns 0.9% 1000 Ml) 1,000 mls @ 75 mls/hr IV PER RATE [facility] Last Admin: 03/18/19 07:52 Dose: 75 mls/hr Latanoprost (Xalatan 0.005%*) 1 drop BOTH EYES QPM [facility] Last Admin: 03/18/19 17:20 Dose: 1 drop Lisinopril (Prinivil Tab*) 10 mg PO QAM [facility] Last Admin: 03/18/19 07:55 Dose: 10 mg Lorazepam (Ativan Tab(*)) 0.5 mg PO ONCE ONE Stop: 03/18/19 17:28 Magnesium Hydroxide (Milk Of Magnesia Liq*) 30 ml PO Q4H PRN PRN Reason: CONSTIPATION Multivitamins/Minerals (Theragran/Minerals Tab*) 1 tab PO QAM [facility] Last Admin: 03/18/19 07:54 Dose: 1 tab Nitrofurantoin Macrocrystals (Macrodantin*) 100 mg PO BID [facility] Nitroglycerin (Nitroglycerin Tab 0.4 Mg*) 0.4 mg SL Q5M PRN PRN Reason: PAIN - CHEST Oxycodone/Acetaminophen (Percocet 5/325 Tab*) 1 tab PO TID PRN PRN Reason: PAIN - MODERATE Last Admin: 03/18/19 14:17 Dose: 1 tab Pantoprazole Sodium (Protonix Tab*) 40 mg PO BID [facility] Last Admin: 03/18/19 07:52 Dose: 40 mg Senna (Senokot 8.6 Mg Tab*) 1 tab PO QAM PRN PRN Reason: constipation Valacyclovir HCl (Valtrex 500 Mg (*)) 500 mg PO BID [facility]; Protocol Last Admin: 03/18/19 07:52 Dose: 500 mg Vital Signs - 8 hr 03/18/19 03/18/19 03/18/19 09:56 11:31 14:17 Temperature 98.4 F Pulse Rate 93 Respiratory 16 16 16 Rate Blood Pressure 138/58 (mmHg) O2 Sat by Pulse 96 Oximetry 03/18/19 17:21 Temperature Pulse Rate Respiratory 16 Rate Blood Pressure (mmHg) O2 Sat by Pulse Oximetry Oxygen Devices in Use Now: None Appearance: alert, no distress Eyes: - - arcus senilis. Ears/Nose/Mouth/Throat: NL Teeth, Lips, Gums Neck: NL Appearance and Movements; NL JVP Respiratory: Symmetrical Chest Expansion and Respiratory Effort Cardiovascular: - - systolic murmur RUSB with radiation throughout Extremities: No Edema Skin: No Rash or Ulcers Neurological: Alert and Oriented x 3, - - RLE 4/5, LLE 3/5. 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 Result Diagrams: 03/17/19 05:47 03/17/19 05:47 Microbiology and Other Data: Microbiology 03/16/19 13:20 Urine Culture - Preliminary Urine Escherichia Coli Assess/Plan/Problems-Billing Assessment: This is an 83 year old woman with history of CKD, CAD, DM who presented to the ED on 03/16 with worsening left upper extremity weakness from baseline, also noted to have worsening b/l lower extremity weakness and inability to walk, which is a change from just two weeks ago. - Patient Problems (1) CVA (cerebral vascular accident) Current Visit: Yes Status: Acute Code(s): I63.9 - CEREBRAL INFARCTION, UNSPECIFIED SNOMED Code(s): 914231611 Comment: CT brain is normal and she refuses an MRI, but her clinical findings are consistent with an acute CVA (versus a c-spine injury, discussed below) neurology following continue asa, plavix, statin will plan for MRI tomorrow under anesthesia (2) Upper extremity weakness Current Visit: Yes Status: Acute Code(s): R29.898 - OTH SYMPTOMS AND SIGNS INVOLVING THE MUSCULOSKELETAL SYSTEM SNOMED Code(s): 615425871 Comment: likely multifactorial and related both to CVA and to severe b/l shoulder OA plus cervical spine disease, now with concern for cervical spine involvement, especially given her lower extremity symptoms in addition to upper extremities we need to pursue further imaging of her c-spine, and she has ultimately agreed to a c-spine MRI but only under anesthesia I have discussed the plans at length with Dr. Tello, Dr. Montes, and Dr. Agosto , as well as the radiology department, and the MRI c-spine will be done tomorrow along with the brain. (3) TIKI (acute kidney injury) Current Visit: No Status: Acute Code(s): N17.9 - ACUTE KIDNEY FAILURE, UNSPECIFIED SNOMED Code(s): 00376909 Comment: CK was normal she has been unable to feed/hydrate herself due to upper extremity weakness, suggesting a prerenal etiology, also improved with IVF; can DC today (4) Tremor Current Visit: Yes Status: Acute Code(s): R25.1 - TREMOR, UNSPECIFIED SNOMED Code(s): 94456170 Comment: intention
[2019-03-18] MEDS ORDERED: Artificial Tears* 15 ML BTL BOTH EYES PRN (19:32)
[2019-03-18] MEDS: Cetirizine* 10 MG TAB PO SCH (20:18)
[2019-03-18] MEDS: Nitrofurantoin Macrocrystals* 100 MG CAP PO SCH (20:18)
--- NOTE | 2019-03-18 21:59 | PN ---
NEUROLOGICAL CONSULT NOTE: DATE OF SERVICE: 03/18/19 PATIENT OF: Dr. Cheng. HISTORY: Neris still is having trouble walking and moving her legs. She had refused an MRI scan of her neck. I reviewed the CT scan films of her neck and reviewed them with Dr. Cheng. There was relatively severe cervical spondylosis with stepoff. There was some bony spurring and least moderate spinal canal narrowing at different levels. MEDICATIONS: Meds continued to be her: 1. Ventolin 2 puffs p.r.n. 2. Albuterol 1 nebulizer q.6 hours p.r.n. 3. Aspirin 81 mg daily. 4. Lipitor 20 mg daily. 5. Baclofen 10 mg b.i.d. 6. Plavix 75 mg daily. 7. Cardizem 240 q.a.m. 8. Neurontin 100 mg b.i.d. 9. Hydralazine 25 mg t.i.d. 10. Prinivil 40 mg q.a.m. 11. Nitroglycerin p.r.n. 12. Percocet. PHYSICAL EXAMINATION: Temperature 98.4, pulse 93, respirations 16, blood pressure 138/58. She is alert and oriented with normal speech and comprehension. Cranial nerves were nonfocal. She still had unchanged weakness in her left hand with her left leg being weaker than her right. There was trace weakness in her right. Her toes were equivocal. Her reflexes were trace to 1. ASSESSMENT AND PLAN: Given her subacute change in her gait, it would be important to make sure that there is not a myelopathy that would need to be surgically addressed. It is possible that she has a neuropathy that is obscuring brisk reflexes from a myelopathy and that is why her reflexes are decreased in any event. I have discussed with her and she is agreeable to obtaining an MRI scan under sedation of her neck and we will get a brain MRI scan because she has weakness in the left arm as well. It is possible that this is either a stroke or possibly the weakness in her arm could be from her neck as well and she has neural foraminal changes at a number of levels. Dr. Mccarty will be on-call beginning tomorrow. Thank you for sharing her case. [id number]/[facility] #: [id number] [facility]
[2019-03-19] MEDS ORDERED: Dextran 70/Hypromellose Tears Eye Drops 15 ml BTL (for Artificials Tears) BOTH EYES PRN (00:18)
[2019-03-19] MEDS: Heparin VIAL(*) 5000 UNITS/ML VIAL (FIVE THOUSAND) SUBCUT SCH ×3 (05:33→20:17)
[2019-03-19] MEDS ORDERED: fentaNYL* 50 MCG/ML 2 ML VIAL (100 MCG VIAL) ONE ×2 (07:29→09:38)
[2019-03-19] MEDS ORDERED: Propofol* 500 MG/50 ML BTL ONE (07:29)
[2019-03-19] MEDS ORDERED: Midazolam* 1 MG/ML 5 ML VIAL (5 MG) ONE (07:29)
[2019-03-19] MEDS ORDERED: Naloxone* 0.4 MG/ML 1 ML VIAL IV PRN (07:57)
[2019-03-19] MEDS ORDERED: hydrALAZINE IV* 20 MG/ML VIAL ONE (07:57)
[2019-03-19] MEDS ORDERED: Labetalol IV* 5 MG/ML 20 ML VIAL ONE (07:57)
[2019-03-19] MEDS ORDERED: Propofol* 10 MG/ML 20 ML BTL ONE (09:34)
[2019-03-19] MEDS: Diltiazem CD CAP* 240 MG PO SCH (09:53)
[2019-03-19] MEDS: Lisinopril TAB* 10 MG PO SCH (09:53)
[2019-03-19] MEDS: Ferrous Sulfate TAB* 325 MG PO SCH (10:34)
[2019-03-19] MEDS: Multivitamins/Minerals TAB PO SCH (10:34)
[2019-03-19] MEDS: Calcium Carbonate TAB* 1250 MG (CALCIUM 500 MG) PO SCH ×2 (10:34→20:25)
[2019-03-19] MEDS: Nitrofurantoin Macrocrystals* 100 MG CAP PO SCH ×2 (10:35→20:15)
[2019-03-19] MEDS: hydrALAZINE TAB* 25 MG PO SCH ×3 (10:35→20:15)
[2019-03-19] MEDS: Baclofen TAB* 10 MG PO SCH ×2 (10:35→20:12)
[2019-03-19] MEDS: Cetirizine* 10 MG TAB PO SCH (10:35)
[2019-03-19] MEDS: Pantoprazole TAB * 40 MG TAB PO SCH ×2 (10:35→20:16)
[2019-03-19] MEDS: Gabapentin CAP(*) 100 MG PO SCH ×2 (10:35→20:14)
[2019-03-19] MEDS: Clopidogrel TAB* 75 MG PO SCH (10:35)
[2019-03-19] MEDS: Aspirin EC TAB* 81 MG TAB.EC PO SCH (10:35)
[2019-03-19] MEDS: Docusate CAP* 100 MG PO SCH (10:35)
[2019-03-19] MEDS: ValACYclovir (*) 500 MG TAB PO SCH ×2 (10:36→20:16)
--- NOTE | 2019-03-19 10:47 | PN ---
Subjective Date of Service: 03/19/19 Interval History: Continues to have LUE weakness and LLE weakness. Had MRI brain and C-spine today under anesthesia. No chest pain, no shortness of breath. No headaches. Family History: Unchanged from Admission Social History: Unchanged from Admission Past Medical History: Unchanged from Admission Objective Active Medications: Acetaminophen (Tylenol Tab*) 650 mg PO Q4H PRN PRN Reason: mild to moderate pain Albuterol (Ventolin Hfa Inhaler*) 2 puff INH Q2H PRN PRN Reason: SOB/WHEEZING Albuterol/Ipratropium (Duoneb (Albuterol 2.5 Mg/Ipratropium 0.5 Mg)) 1 neb INH Q6H PRN PRN Reason: SOB/WHEEZING Artificial Tears (Natural Balance Tears Eye Drop) 1 drop BOTH EYES Q2H PRN PRN Reason: DRY EYE Aspirin (Aspirin Ec Tab*) 81 mg PO QAM [facility] Last Admin: 03/19/19 10:35 Dose: 81 mg Atorvastatin Calcium (Lipitor*) 20 mg PO QPM [facility] Last Admin: 03/18/19 17:20 Dose: 20 mg Baclofen (Lioresal Tab*) 10 mg PO BID [facility] Last Admin: 03/19/19 10:35 Dose: 10 mg Calcium Carbonate (Calcium Carbonate Tab*) 625 mg PO BID [facility] Last Admin: 03/19/19 10:34 Dose: 625 mg Cetirizine HCl (Zyrtec*) 10 mg PO DAILY [facility] Last Admin: 03/19/19 10:35 Dose: 10 mg Clopidogrel Bisulfate (Plavix Tab*) 75 mg PO DAILY [facility] Last Admin: 03/19/19 10:35 Dose: 75 mg Diltiazem HCl (Cardizem Cd Cap*) 240 mg PO QAM [facility] Last Admin: 03/19/19 09:53 Dose: 240 mg Docusate Sodium (Colace Cap*) 100 mg PO QAM [facility] Last Admin: 03/19/19 10:35 Dose: Not Given Ferrous Sulfate (Ferrous Sulfate Tab*) 325 mg PO QAM [facility] Last Admin: 03/19/19 10:34 Dose: 325 mg Gabapentin (Neurontin Cap(*)) 100 mg PO BID [facility] Last Admin: 03/19/19 10:35 Dose: 100 mg Heparin Sodium (Porcine) (Heparin Vial(*)) 5,000 units SUBCUT Q8HR [facility] Last Admin: 03/19/19 05:33 Dose: 5,000 units Hydralazine HCl (Apresoline Tab*) 25 mg PO TID [facility] Last Admin: 03/19/19 10:35 Dose: 25 mg Latanoprost (Xalatan 0.005%*) 1 drop BOTH EYES QPM [facility] Last Admin: 03/18/19 17:20 Dose: 1 drop Lisinopril (Prinivil Tab*) 10 mg PO QAM [facility] Last Admin: 03/19/19 09:53 Dose: 10 mg Magnesium Hydroxide (Milk Of Magnesia Liq*) 30 ml PO Q4H PRN PRN Reason: CONSTIPATION Multivitamins/Minerals (Theragran/Minerals Tab*) 1 tab PO QAM [facility] Last Admin: 03/19/19 10:34 Dose: 1 tab Naloxone HCl (Narcan*) 0.08 mg IV Q2M PRN PRN Reason: severe induced resp depression Nitrofurantoin Macrocrystals (Macrodantin*) 100 mg PO BID [facility] Last Admin: 03/19/19 10:35 Dose: 100 mg Nitroglycerin (Nitroglycerin Tab 0.4 Mg*) 0.4 mg SL Q5M PRN PRN Reason: PAIN - CHEST Oxycodone/Acetaminophen (Percocet 5/325 Tab*) 1 tab PO TID PRN PRN Reason: PAIN - MODERATE Last Admin: 03/18/19 23:16 Dose: 1 tab Pantoprazole Sodium (Protonix Tab*) 40 mg PO BID [facility] Last Admin: 03/19/19 10:35 Dose: 40 mg Senna (Senokot 8.6 Mg Tab*) 1 tab PO QAM PRN PRN Reason: constipation Valacyclovir HCl (Valtrex 500 Mg (*)) 500 mg PO BID [facility]; Protocol Last Admin: 03/19/19 10:36 Dose: 500 mg Vital Signs - 8 hr 03/19/19 03/19/19 03/19/19 04:00 09:27 09:35 Temperature 98.5 F 97.9 F Pulse Rate 64 66 66 Respiratory 16 16 Rate Blood Pressure 180/80 164/89 192/86 (mmHg) O2 Sat by Pulse 100 97 97 Oximetry 03/19/19 03/19/19 03/19/19 10:01 10:10 10:35 Temperature Pulse Rate 66 Respiratory 16 18 16 Rate Blood Pressure 176/76 (mmHg) O2 Sat by Pulse 97 Oximetry 03/19/19 10:43 Temperature 98.1 F Pulse Rate 62 Respiratory 16 Rate Blood Pressure 197/83 (mmHg) O2 Sat by Pulse 98 Oximetry Oxygen Devices in Use Now: None Appearance: Lying in bed, not in distress Eyes: PERRLA Respiratory: Symmetrical Chest Expansion and Respiratory Effort, Clear to Auscultation Cardiovascular: NL Sounds; No Murmurs; No JVD, RRR Abdominal: NL Sounds; No Tenderness; No Distention, No Hepatosplenomegaly Extremities: No Edema Neurological: Alert and Oriented x 3, - - unable to move LUE, and LLE. Result Diagrams: 03/17/19 05:47 03/17/19 05:47 Microbiology and Other Data: Microbiology 03/16/19 13:20 Urine Culture - Preliminary Urine Escherichia Coli Assess/Plan/Problems-Billing Assessment: This is an 83 year old woman with history of CKD, CAD, DM who presented to the ED on 03/16 with worsening left upper extremity weakness from baseline, also noted to have worsening b/l lower extremity weakness and inability to walk, which is a change from just two weeks ago. - Patient Problems (1) CVA (cerebral vascular accident) Current Visit: Yes Status: Acute Code(s): I63.9 - CEREBRAL INFARCTION, UNSPECIFIED SNOMED Code(s): 051760492 Comment: CT brain is normal MRI done today under anesthesisa: which reveals subacute to chronic left frontal infarct. neurology following continue asa, plavix, statin A1c is 5.2, LDL < 100 (2) Upper extremity weakness Current Visit: Yes Status: Acute Code(s): R29.898 - OTH SYMPTOMS AND SIGNS INVOLVING THE MUSCULOSKELETAL SYSTEM SNOMED Code(s): 888284798 Comment: likely multifactorial and related both to CVA and to severe b/l shoulder OA plus cervical spine disease, now with concern for cervical spine involvement, especially given her lower extremity symptoms in addition to upper extremities. MRI done shows DJD and severe spinal stenosis. (3) TIKI (acute kidney injury) Current Visit: No Status: Acute Code(s): N17.9 - ACUTE KIDNEY FAILURE, UNSPECIFIED SNOMED Code(s): 65496683 Comment: CK is normal. TIKI has improved, (4) Chronic iron deficiency anemia Current Visit: Yes Status: Acute Code(s): D50.9 - IRON DEFICIENCY ANEMIA, UNSPECIFIED SNOMED Code(s): 60288578 Comment: Continue ferrous sulfate (5) HTN (hypertension) Current Visit: Yes Status: Acute Code(s): I10 - ESSENTIAL (PRIMARY) HYPERTENSION SNOMED Code(s): 21174857 Comment: elevated BP today prior to getting AM meds, Will continue home meds, and trend BP on lisinopril, hydralazine, cardizem Status and Disposition: is from [facility]
[2019-03-19] MEDS: guaiFENesin/CODIENE 100mg/10mg 5 ML UDC PO PRN ×2 (12:04→20:34)
[2019-03-19] MEDS ORDERED: Lisinopril TAB* 10 MG PO ONE (13:22)
[2019-03-19] MEDS: oxyCODONE/Acetamin 5/325 MG* TAB PO PRN ×2 (14:31→20:17)
[2019-03-19] MEDS: Atorvastatin* 20 MG TAB PO SCH (17:24)
[2019-03-19] MEDS: Latanoprost 0.005%* 2.5 ml BTL BOTH EYES SCH (17:25)
--- NOTE | 2019-03-19 22:27 | PN ---
NEUROLOGY PROGRESS NOTE: DATE OF SERVICE: 03/19/19 IN-HOUSE PROVIDER: Dr. Healy. CHIEF COMPLAINT: "I have trouble moving both arms and legs, but worse on the left side." REVIEW OF THE HISTORY: The patient is an 83-year-old female who has a history of lumbar spine surgery by Dr. Calixto in 2018 who has frequent falls. The patient lives in an assisted facility for 20 plus years. She reports that she has weakness on the left side, but overall generalized weakness in the lower extremities. She was found to have a urinary tract infection during this hospitalization. Dr. Montes had evaluated the patient initially on 03/16/19 and recommended workup for possible stroke and cervical myelopathy. An MRI of the brain without contrast was completed on 03/19/19 under minimal sedation as the patient has severe claustrophobia. The MRI report read as subacute to chronic 8 mm infarction in the left frontal lobe, subcortical white matter tracts. Please note that I reviewed the MRI myself, and I do not see any evidence of an acute infarction. There is a small area of restricted diffusion in the left frontal subcortical region, but no EDC correlation and there is T2 hyperintensity on FLAIR sequence. This is consistent more of a chronic infarction, plus this finding would not correlate with the patient's symptoms of generalized weakness mostly involving the left arm and left leg. An MRI of the cervical spine without contrast was also obtained. The MRI reported to show multilevel degenerative disk disease causing various degree of central canal and neuroforaminal stenosis, more severe at C4-5 and C5-6. There was no evidence of any signal in the cord. There is no evidence of severe cord compression. The patient also had a carotid ultrasound completed on 03/16/19 that showed mild plaque present in bilateral carotid bulbs and proximal anterior carotid arteries with no hemodynamically significant stenosis. The patient had a transthoracic echo that showed an ejection fraction of 70% with negative bubble study. Further history was obtained today. The patient stated that over the past year , she has trouble with her gait. She has had at least 1 fall a month. She uses a walker. She has been falling more recently despite using a walker. She states that her legs gave out. She never loses consciousness. She has trouble moving the left leg. She has spasticity in the left lower extremity. She also has trouble moving both arms, but worse on the left due to severe shoulder arthritis. She states that she has [id number] in the shoulders with evidence of crepitus on examination. She also endorsed severe numbness sensation in her feet. The patient had her vitamin B12 checked, which was normal at 711. TSH was 4.67. Urinalysis did show evidence of pyuria with 3+ wbc and 3+ leukocyte esterase. After my examination, I reviewed a CT of the lumbar spine completed on . There is evidence of severe spinal canal stenosis at L2 and L3 and at least moderate spinal canal stenosis at L4-L5. There is evidence of moderate bilateral neuroforaminal narrowing at L2-L3, moderate spinal canal stenosis at L4-L5, moderate bilateral neuroforaminal stenosis at L5-S1. The patient denied any impairment in her bowel or bladder functions. Again, her main concern is related to falls that have worsened over the last 1 month. The patient also complains of intermittent tremors in both hands. There is no clear correlation with any medication, but she is on albuterol inhalers. The patient has been using a walker right before her surgery, but definitely required a walker after her spine surgery 1 year ago. MEDICATIONS: 1. Acetaminophen 650 mg every 4 hours. 2. Albuterol 2 puffs inhale every 2 hours. 3. Albuterol ipratropium 1 nebulizer inhale every 6 hours. 4. Artificial tears 1 drop both eyes p.r.n. 5. Aspirin 81 mg p.o. in the morning. 6. Atorvastatin 20 mg p.o. at night. 7. Baclofen 10 mg p.o. b.i.d. 8. Calcium 625 mg p.o. b.i.d. 9. Cetirizine 10 mg p.o. daily. 10. Clopidogrel 75 mg p.o. daily. 11. Diltiazem 240 mg p.o. q.a.m. 12. Docusate sodium 100 mg p.o. in the morning. 13. Ferrous sulfate 325 mg p.o. in the morning. 14. Gabapentin 100 mg p.o. b.i.d. 15. Guaifenesin codeine 5 mL every 6 hours as needed. 16. Heparin sodium 5000 units subcutaneously every 8 hours. 17. Hydralazine 50 mg p.o. t.i.d. 18. Lisinopril 20 mg p.o. in the morning. 19. Magnesium 30 mL p.o. every 4 hours as needed. 20. Multivitamins 1 tablet p.o. in the morning. 21. Nitrofurantoin 100 mg p.o. b.i.d. 22. Nitroglycerin 0.4 mL subcutaneous every 5 minutes as needed for chest pain. 23. Oxycodone and acetaminophen 1 tablet by mouth t.i.d. p.r.n. 24. Pantoprazole 40 mg p.o. b.i.d. 25. Senna 1 tab p.o. in the morning. 26. Valacyclovir 500 mg p.o. b.i.d. PHYSICAL EXAMINATION: Temperature of 98.6, pulse of 72, respiratory rate of 16 , oxygen saturation of 99%, blood pressure of 197/91. General: A well- nourished, well-developed obese female, in no acute distress. Head: Atraumatic , normocephalic without any obvious abnormality. Neck is supple and symmetric with no carotid bruit. Eyes: Conjunctivae/corneas are clear with no evidence of cataracts. Cardiac: Regular rate and rhythm with normal S1 and S2. Respiratory: Clear to auscultation bilaterally with no wheezing or rhonchi. Extremities: Normal range of motion with no cyanosis. Psych: Affect is broad. Normal mood. Easy to establish rapport. Neurological Examination: Mental status: Awake, alert, and oriented to person, place, time, and general circumstances. She has no has no dysarthria or aphasia. Cranial nerves: Pupils equal, round, and reactive to light, extraocular muscles are intact. No facial asymmetry. Motor Examination: The patient has generalized weakness mostly involving the left lower extremity. She has 4/5 weakness to shoulder abduction bilaterally, elbow extension bilaterally, and wrist extension bilaterally. The limitation of her upper extremity motor function is related to severe pain in the shoulders. She has positive crepitus in the shoulder joints bilaterally. She has 2/5 hip flexion on the left, 4/5 hip flexion on the right. She has 3/5 hip abduction on the left, but 4/5 hip abduction on the right. Knee extension is 4/5 bilaterally. Ankle dorsiflexion 4/5 bilaterally. EHL 3/5 bilaterally. She has no evidence of spasticity. Sensory Examination : She has reduced sensation to light touch and pinprick in a length-dependent pattern demarcated at the knees bilaterally. She also has reduced sensation at L2-L3 dermatomal distribution on the left. She has intact sensation in the upper extremities bilaterally. Vibration is absent at the great toes, medial malleolus, and the knees bilaterally. Intact proprioception at the great toes bilaterally. Coordination: Normal [id number] bilaterally. Gait: Unable to stand due to bilateral lower extremity weakness mostly on the left side. ASSESSMENT AND PLAN: Neris Aguirre is an 83-year-old female who presents with frequent falls. The patient has a past medical history of lumbar degenerative disk disease, arthritis, and lumbar spinal surgery last year who has had progressive falls over the last 1 year, which has significantly worsened over the past 1 month. The patient's examination is notable for significant weakness in the left lower extremity and symmetric weakness all throughout the lower extremities. She has underlying arthritis in the shoulder joints with crepitus on examination which is the reason she has restriction of shoulder range of motion movements bilaterally, left more involved than the right. She has no facial symptoms. She has no dysarthria or swallowing difficulty. Her MRI did not show any acute stroke. The MRI finding of a left subcortical- chronic stroke on the frontal subcortical region is not consistent with the examination finding of left-sided weakness. The cervical spine does not show significant evidence of severe spinal stenosis, therefore, is unlikely contributing to her symptoms. I suspect that the bilateral lower extremity weakness is attributable to both severe peripheral neuropathy, which is most likely related to diabetes and the asymmetry is explained by severe lumbar spine disease. She had a CT of the lumbar spine completed in October 2018 that confirmed severe spinal stenosis mostly at L2-L3 and moderate at L4-L5. My recommendation is for the patient to follow up with her capital markets specialist. She sees Dr. Calixto. I am not sure if she is going to be able to go to [place] and follow up, but she could also possibly follow up with Dr. Huitron here in [place]. Defer further management to primary team. I would continue the aspirin and statin therapy for the patient's history of stroke. I do not recommend dual antiplatelet therapy if it is being used for stroke. I do recommend continuing atorvastatin for secondary stroke measures. Please aggressively treat her blood pressure, so the patient currently has hypertensive emergency with systolic blood pressure in the 190s. Given that she did not have an acute stroke, her blood pressure goal should be normotensive. Also, please consult PT/OT to evaluate and treat. She may benefit from short-term rehabilitation. The patient declined an MRI of the lumbar spine, but if further workup is needed , we could do a CT myelogram or repeating a CT of the lumbar spine to see any possible progression. The patient's diagnosis during this hospitalization is not related to acute stroke or transient ischemic attack. Please contact me for any questions or concerns. [id number]/[facility] #: [id number] LESLIE
[2019-03-20] MEDS: guaiFENesin/CODIENE 100mg/10mg 5 ML UDC PO PRN ×2 (04:03→11:27)
[2019-03-20] MEDS: oxyCODONE/Acetamin 5/325 MG* TAB PO PRN ×3 (04:03→15:38)
[2019-03-20] MEDS: Heparin VIAL(*) 5000 UNITS/ML VIAL (FIVE THOUSAND) SUBCUT SCH ×2 (05:44→14:46)
[2019-03-20] MEDS ORDERED: Lisinopril TAB* 10 MG PO SCH (09:00)
[2019-03-20] MEDS: Multivitamins/Minerals TAB PO SCH (09:11)
[2019-03-20] MEDS: Aspirin EC TAB* 81 MG TAB.EC PO SCH (09:12)
[2019-03-20] MEDS: Nitrofurantoin Macrocrystals* 100 MG CAP PO SCH ×2 (09:12→14:47)
[2019-03-20] MEDS: Clopidogrel TAB* 75 MG PO SCH (09:13)
[2019-03-20] MEDS: Gabapentin CAP(*) 100 MG PO SCH (09:13)
[2019-03-20] MEDS: Ferrous Sulfate TAB* 325 MG PO SCH (09:13)
[2019-03-20] MEDS: Docusate CAP* 100 MG PO SCH (09:14)
[2019-03-20] MEDS: ValACYclovir (*) 500 MG TAB PO SCH (09:14)
[2019-03-20] MEDS: hydrALAZINE TAB* 25 MG PO SCH ×2 (09:14→14:46)
[2019-03-20] MEDS: Cetirizine* 10 MG TAB PO SCH (09:14)
[2019-03-20] MEDS: Diltiazem CD CAP* 240 MG PO SCH (09:14)
[2019-03-20] MEDS: Pantoprazole TAB * 40 MG TAB PO SCH (09:14)
[2019-03-20] MEDS: Baclofen TAB* 10 MG PO SCH (09:14)
[2019-03-20] MEDS: Calcium Carbonate TAB* 1250 MG (CALCIUM 500 MG) PO SCH (09:15)
--- NOTE | 2019-03-20 10:21 | PN ---
Subjective Date of Service: 03/20/19 Interval History: No acute issues overnight Seen by neurologist yesterday Yesterday BP meds were adjusted due to BP in the 190's. This morning participated with PT No chest pain, no shortness of breath Family History: Unchanged from Admission Social History: Unchanged from Admission Past Medical History: Unchanged from Admission Objective Active Medications: Acetaminophen (Tylenol Tab*) 650 mg PO Q4H PRN PRN Reason: mild to moderate pain Albuterol (Ventolin Hfa Inhaler*) 2 puff INH Q2H PRN PRN Reason: SOB/WHEEZING Last Admin: 03/19/19 15:24 Dose: 2 puff Albuterol/Ipratropium (Duoneb (Albuterol 2.5 Mg/Ipratropium 0.5 Mg)) 1 neb INH Q6H PRN PRN Reason: SOB/WHEEZING Artificial Tears (Natural Balance Tears Eye Drop) 1 drop BOTH EYES Q2H PRN PRN Reason: DRY EYE Aspirin (Aspirin Ec Tab*) 81 mg PO QAM [facility] Last Admin: 03/20/19 09:12 Dose: 81 mg Atorvastatin Calcium (Lipitor*) 20 mg PO QPM [facility] Last Admin: 03/19/19 17:24 Dose: 20 mg Baclofen (Lioresal Tab*) 10 mg PO BID [facility] Last Admin: 03/20/19 09:14 Dose: 10 mg Calcium Carbonate (Calcium Carbonate Tab*) 625 mg PO BID [facility] Last Admin: 03/20/19 09:15 Dose: 625 mg Cetirizine HCl (Zyrtec*) 10 mg PO DAILY [facility] Last Admin: 03/20/19 09:14 Dose: 10 mg Clopidogrel Bisulfate (Plavix Tab*) 75 mg PO DAILY [facility] Last Admin: 03/20/19 09:13 Dose: 75 mg Diltiazem HCl ([facility]izem Cd Cap*) [facility] Admin: 03/20/19 09:14 Dose: 240 mg Docusate Sodium (Colace Cap*) 100 mg PO QAM [facility] Last Admin: 03/20/19 09:14 Dose: 100 mg Ferrous Sulfate (Ferrous Sulfate Tab*) 325 mg PO QAM [facility] Last Admin: 03/20/19 09:13 Dose: 325 mg Gabapentin (Neurontin Cap(*)) 100 mg PO BID [facility] Last Admin: 03/20/19 09:13 Dose: 100 mg Guaifenesin/Codeine Phosphate (Robitussin Ac 100mg/10mg In 5 Ml) 5 ml PO Q6H PRN PRN Reason: COUGH Last Admin: 03/20/19 04:03 Dose: 5 ml Heparin Sodium (Porcine) (Heparin Vial(*)) 5,000 units SUBCUT Q8HR [facility] Last Admin: 03/20/19 05:44 Dose: 5,000 units Hydralazine HCl (Apresoline Tab*) 50 mg PO TID [facility] Last Admin: 03/20/19 09:14 Dose: 50 mg Latanoprost (Xalatan 0.005%*) 1 drop BOTH EYES QPM [facility] Last Admin: 03/19/19 17:25 Dose: 1 drop Lisinopril (Prinivil Tab*) 20 mg PO QAM [facility] Last Admin: 03/20/19 09:13 Dose: 20 mg Magnesium Hydroxide (Milk Of Magnesia Liq*) 30 ml PO Q4H PRN PRN Reason: CONSTIPATION Multivitamins/Minerals (Theragran/Minerals Tab*) 1 tab PO QAM [facility] Last Admin: 03/20/19 09:11 Dose: 1 tab Nitrofurantoin Macrocrystals (Macrodantin*) 100 mg PO BID [facility] Last Admin: 03/20/19 09:12 Dose: 100 mg Nitroglycerin (Nitroglycerin Tab 0.4 Mg*) 0.4 mg SL Q5M PRN PRN Reason: PAIN - CHEST Oxycodone/Acetaminophen (Percocet 5/325 Tab*) 1 tab PO TID PRN PRN Reason: PAIN - MODERATE Last Admin: 03/20/19 09:11 Dose: 1 tab Pantoprazole Sodium (Protonix Tab*) 40 mg PO BID [facility] Last Admin: 03/20/19 09:14 Dose: 40 mg Senna (Senokot 8.6 Mg Tab*) 1 tab PO QAM PRN PRN Reason: constipation Valacyclovir HCl (Valtrex 500 Mg (*)) 500 mg PO BID [facility]; Protocol Last Admin: 03/20/19 09:14 Dose: 500 mg Vital Signs - 8 hr 03/20/19 03/20/19 03/20/19 03:15 04:03 06:05 Temperature 98 F Pulse Rate 70 Respiratory 16 19 24 Rate Blood Pressure 149/62 (mmHg) O2 Sat by Pulse 95 Oximetry 03/20/19 03/20/19 09:11 09:13 Temperature Pulse Rate Respiratory 20 20 Rate Blood Pressure (mmHg) O2 Sat by Pulse Oximetry Oxygen Devices in Use Now: None Appearance: Sitting on bed, not in distress Eyes: PERRLA Respiratory: Symmetrical Chest Expansion and Respiratory Effort, Clear to Auscultation Cardiovascular: RRR, - - No JVD, S1/S2 nomral. 3/6 systolic murmur at hte RUSBV Abdominal: NL Sounds; No Tenderness; No Distention, No Hepatosplenomegaly Neurological: Alert and Oriented x 3, NL Sensation, - - 4/5 Upper extremities. Result Diagrams: 03/17/19 05:47 03/17/19 05:47 Microbiology and Other Data: Microbiology 03/16/19 13:20 Urine Culture - Preliminary Urine Escherichia Coli Assess/Plan/Problems-Billing Assessment: This is an 83 year old woman with history of CKD, CAD, DM who presented to the ED on 03/16 with worsening left upper extremity weakness from baseline, also noted to have worsening b/l lower extremity weakness and inability to walk, which is a change from just two weeks ago. - Patient Problems (1) CVA (cerebral vascular accident) Current Visit: Yes Status: Acute Code(s): I63.9 - CEREBRAL INFARCTION, UNSPECIFIED SNOMED Code(s): 942894955 Comment: CT brain is normal MRI done today under anesthesisa: which reveals subacute to chronic left frontal infarct. on aspirin, plavix and statin. A1c is 5.2, per Neuro: no dual antiplatlet agent needed, was on aspirin as outpatient for CAD history, so will d/c aspirin, and continue plavix. LDL < 100 (2) Upper extremity weakness Current Visit: Yes Status: Acute Code(s): R29.898 - OTH SYMPTOMS AND SIGNS INVOLVING THE MUSCULOSKELETAL SYSTEM SNOMED Code(s): 501575108 Comment: likely multifactorial and related both to CVA and to severe b/l shoulder OA plus cervical spine disease, now with concern for cervical spine involvement, especially given her lower extremity symptoms in addition to upper extremities. MRI done shows DJD and severe spinal stenosis- will need neurosurgery as outpatient, used to see Dr. Calixto- but he has moved?, will need outpatient referral to neurosurgery (3) TIKI (acute kidney injury) Current Visit: No Status: Acute Code(s): N17.9 - ACUTE KIDNEY FAILURE, UNSPECIFIED SNOMED Code(s): 00312767 Comment: CK is normal. TIKI has improved, (4) Chronic iron deficiency anemia Current Visit: Yes Status: Acute Code(s): D50.9 - IRON DEFICIENCY ANEMIA, UNSPECIFIED SNOMED Code(s): 83675253 Comment: Continue ferrous sulfate (5) HTN (hypertension) Current Visit: Yes Status: Acute Code(s): I10 - ESSENTIAL (PRIMARY) HYPERTENSION SNOMED Code(s): 15583931 Comment: Uncontrolled BP 03/19- hydralazine increased to 50mg TID and lisinopril 20mg daily will monitor BP- if remain elevated tomorrow- will make another adjustment. Status and Disposition: seen by PT will work with CM for placement.
--- NOTE | 2019-03-20 14:04 | DS ---
CC: Dr. Huitron; BLACK Pompa DISCHARGE SUMMARY: DATE OF ADMISSION: 03/15/19 DATE OF DISCHARGE: 03/20/19 PRIMARY CARE PROVIDER: BLACK Pompa. REASON FOR ADMISSION: Trembling, worsening left upper extremity. CONSULTATIONS DURING THE HOSPITAL COURSE: Included Dr. Anshul Montes, neurologist, as well as seen by Dr. Lenora Mccarty, neurologist. DISCHARGE DIAGNOSES: Include: 1. Urinary tract infection. 2. Cervical spinal stenosis resulting in upper extremity weakness. 3. Stroke. 4. Acute kidney injury. 5. Urinary tract infection. ADDITIONAL DIAGNOSES: Also include: 1. Chronic iron deficiency anemia. 2. Coronary artery disease. 3. Hypertension. 4. Dyslipidemia. 5. Gastroesophageal reflux disease. HOSPITAL COURSE: This is an 83-year-old female with past medical history of CAD , diabetes, hypertension, hyperlipidemia, CKD stage 3, who had come to the emergency room because of left upper extremity weakness and trembling. In the emergency room, the patient was noted to have left upper and left lower extremity weakness along with the right upper extremity weakness. The patient underwent a CT head, which revealed no acute intracranial pathology. The patient was continued on her home dose aspirin and statin, Plavix was added afterwards. The patient was refusing an MRI because she has claustrophobia and had a bad experience with MRI in the past. Neurologist was also consulted. Additionally, on admission, she was found to have abnormal urinalysis, was started on antibiotics. Urine culture grew E. coli with sensitivity to nitrofurantoin, which she was started on. The patient eventually underwent a brain MRI showing subacute to chronic 8 mm infarct in the left frontal lobe, subcortical white matter tracts, and chronic microvascular disease. The patient also underwent a cervical C-spine MRI, which showed multilevel degenerative disk disease causing various degree of central canal and neural foraminal stenosis, most severely seen at C4-C5 and C5- C6. The patient has a known history of cervical spine issues as well as lumbar spine issues, for which she used to see Dr. Calixto as an outpatient for neurosurgical services. Unfortunately, Dr. Calixto has moved out of the area and the patient will be referred to Dr. Huitron, the neurosurgical doctor [facility]. Of note, her hospital course was complicated by elevated blood pressure as high as in the 190s. We adjusted the patient's home medication. We increased her hydralazine to 50 mg 3 times a day and lisinopril 20 mg once a day. She was also seen by neurologist Dr. Mccarty, who recommended that the patient does not need dual antiplatelet regimen as far as neurological is concern. Given that the patient was on aspirin, we discontinued the aspirin and started her on Plavix during the hospital course. DISCHARGE PHYSICAL EXAMINATION: Blood pressure 143/62, saturation 97% on room air, respiratory rate of 20, heart rate of 71, temperature of 98.4 Fahrenheit. Pupils equal, round, reactive to light. Atraumatic, normocephalic. She is awake, alert, oriented x3. 4/5 at the left upper extremity. 4/5 at the left lower extremity. 5/5 at the right lower extremity as well as right upper extremity 4/5. Heart is regular rate and rhythm, soft systolic murmur at the apex. Lungs are clear to auscultation without any wheezing, rales, or rhonchi. There is no lower extremity edema. Normoactive bowel sounds in all 4 quadrants. Abdomen is soft, nontender, nondistended. DISCHARGE PLANNING: The patient's discharge condition: Fair. Discharge disposition: The patient is to go to [facility] facility at [facility]. Discharge instruction includes the patient is to follow up with primary care provider BLACK Pompa within 1 to 2 weeks. The patient is to follow up with Dr. Felicia Huitron, referral has been made. Physical therapy as tolerated. DISCHARGE MEDICATIONS: Include: 1. Lipitor 20 mg at bedtime. 2. Baclofen 10 mg t.i.d. 3. Calcium carbonate 600 mg twice a day. 4. Plavix 75 mg daily. 5. Cardizem 240 mg in the morning. 6. Colace 100 mg in the morning. 7. Ferrous sulfate 325 mg in the morning. 8. Gabapentin 100 mg twice a day. 9. Hydralazine 50 mg 3 times a day. 10. Latanoprost 0.05% one drop both eyes in the bedtime. 11. Lisinopril 20 mg in the morning. 12. Magnesium hydroxide 30 mL every 4 hours as needed for indigestion. 13. Multivitamin 1 tab daily. 14. Nitroglycerin 0.4 mg sublingual as needed for chest pain. 15. Omeprazole 20 mg twice a day. 16. Oxycodone/acetaminophen 5/325 one to two tabs 3 times a day as needed for moderate pain. 17. Senna tablets 1 tab in the morning as needed for constipation. 18. Valacyclovir 500 mg twice a day, which the patient takes for prophylaxis. 19. Cetirizine 10 mg daily. 20. Dextran 70/hypromellose tears 1 drop both eyes every 2 hours as needed for dry eye symptoms. 21. Nitrofurantoin 100mg Twice a day till March 22 morning. The patient was seen by physical therapist throughout the hospital course and is followed by Case Management. [id number]/[facility] #: [id number] LESLIE
[2019-03-20 16:06] VITALS: BP 135/63
== END 2019-03-20 16:01 | DRG 65 ==
LOC: ED 17:31 → MEDTELE 19:00 → OBSVTOIN 03-16 12:00
PROVIDERS: ADMIT Internal Medicine; ATTEND Internal Medicine
DX: I63.89 Other cerebral infarction (principal); E87.1 Hypo-osmolality and hyponatremia; N17.9 Acute kidney failure, unspecified; N39.0 Urinary tract infection, site not specified; G81.94 Hemiplegia, unspecified affecting left nondominant side; M48.02 Spinal stenosis, cervical region; E03.9 Hypothyroidism, unspecified; E78.00 Pure hypercholesterolemia, unspecified; I48.91 Unspecified atrial fibrillation; K21.9 Gastro-esophageal reflux disease without esophagitis; K57.90 Diverticulosis of intestine, part unspecified, without perforation or abscess without bleeding; M19.90 Unspecified osteoarthritis, unspecified site; E11.39 Type 2 diabetes mellitus with other diabetic ophthalmic complication; H42 Glaucoma in diseases classified elsewhere; H91.90 Unspecified hearing loss, unspecified ear; E78.5 Hyperlipidemia, unspecified; I12.9 Hypertensive chronic kidney disease with stage 1 through stage 4 chronic kidney disease, or unspecified chronic kidney disease; E11.22 Type 2 diabetes mellitus with diabetic chronic kidney disease; I45.10 Unspecified right bundle-branch block; G47.33 Obstructive sleep apnea (adult) (pediatric); G89.29 Other chronic pain; Z96.653 Presence of artificial knee joint, bilateral; D50.9 Iron deficiency anemia, unspecified; M47.812 Spondylosis without myelopathy or radiculopathy, cervical region; I44.1 Atrioventricular block, second degree; M19.012 Primary osteoarthritis, left shoulder; M19.011 Primary osteoarthritis, right shoulder; F40.240 Claustrophobia; B96.20 Unspecified Escherichia coli [E. coli] as the cause of diseases classified elsewhere; I25.10 Atherosclerotic heart disease of native coronary artery without angina pectoris; Z88.0 Allergy status to penicillin; Z86.718 Personal history of other venous thrombosis and embolism; I25.2 Old myocardial infarction; Z79.02 Long term (current) use of antithrombotics/antiplatelets; Z79.899 Other long term (current) drug therapy
CPT/HCPCS: 36415; 70450; 70551; 71045; 72125; 72141; 80048; 80053; 80061; 81003; 81015; 82550; 82607; 83036; 84443; 84484; 85025; 85027; 85610; 85652; 86140; 87077; 87086; 87186; 93005; 93306; 93880; 94640; 99284; A9270-GY; C8929; G0378; G8978-GP-CM; G8979-GP-CI; J0360; J1644; J2250; J2704; J3010

== ENCOUNTER 2019-05-30 15:12 | Observation (INO) | payer MEDICARE, MEDICAID ==
[2019-05-30] MEDS ORDERED: NS 0.9% 1000 ML** 1,000 ML IV ONE (15:14)
--- NOTE | 2019-05-30 15:34 | ED ---
Shortness of Breath - HPI Summary HPI Summary: 83 year old F presenting to [facility] accompanied by EMS complains of shortness of breath, chest pain and weakness in the legs since earlier today. Patient was originally called in as a code redmond at 1506 which was later cancelled. She has difficulty responding to commands. She denies chest pain and headaches. Patient is a poor historian and was unable to communicate symptoms. Last known well time is unknown and her base line mental state is also unknown. She does not use O2 at home but does use a walker. The patient rates the pain 0/10 in severity. Symptoms aggravated by nothing. Symptoms alleviated by nothing. Medications reviewed. Allergies noted. Home Medications Medication Instructions Recorded Confirmed Type Cod Liver Oil 1 cap PO QAM 05/19/17 03/15/19 History Docusate CAP* [Colace Cap*] 100 mg PO QAM 05/19/17 03/15/19 History Ferrous Sulfate TAB* 325 mg PO QAM 05/19/17 03/15/19 History Multivitamins/Minerals TAB* 1 tab PO QAM 05/19/17 03/15/19 History [Theragran/minerals TAB*] Nitroglycerin TAB 0.4 MG* 0.4 mg SL Q5M PRN 05/19/17 03/15/19 History Omeprazole CAP (NF) [Prilosec CAP* 20 mg PO BID 05/19/17 03/15/19 History 20 MG] ValACYclovir (*) [Valtrex 500 mg 500 mg PO BID 05/19/17 03/15/19 History (*)] Magnesium Hydroxide LIQ* [Milk of 30 ml PO Q4H PRN [facility] 01/23/18 03/15/19 Rx Magnesia LIQ*] Calcium Carbonate TAB* 600 mg PO BID 03/05/18 03/15/19 History Baclofen TAB* [Lioresal TAB*] 10 mg PO BID 06/20/18 03/15/19 History Gabapentin CAP(*) [Neurontin 100 100 mg PO BID 06/20/18 03/15/19 History mg CAP(*)] dilTIAZem HCl [Diltiazem 24Hr ER 240 mg PO QAM #30 cap.er.24h 06/22/18 03/15/19 Rx (Cd)] Atorvastatin* [Lipitor 20 MG*] 20 mg PO QPM 03/07/19 03/15/19 History Latanoprost 0.005%* [Xalatan 1 drop BOTH EYES QPM 03/07/19 03/15/19 History 0.005%*] oxyCODONE/Acetamin 5/325 MG* 1 - 2 tab PO TID PRN MDD 6 tabs 03/07/19 03/15/19 History [Percocet 5/325 TAB*] Senna TAB 8.6 mg* [Senokot 8.6 mg 1 tab PO QAM PRN #0 03/09/19 03/15/19 Rx TAB*] Acetaminophen TAB* [Tylenol TAB*] 650 mg PO Q4H PRN tab 03/20/19 Rx Albuterol/Ipratropium NEB.DIANE* 1 neb INH Q6H PRN neb.soln 03/20/19 Rx [Duoneb (Albuterol 2.5 MG/Ipratropium 0.5 MG)] Cetirizine* [ZyrTEC 10 MG TAB*] 10 mg PO DAILY tab 03/20/19 Rx Clopidogrel TAB* [Plavix TAB*] 75 mg PO DAILY tab 03/20/19 Rx Dextran 70/Hypromellose Tears 1 drop BOTH EYES Q2H PRN btl 03/20/19 Rx [Natural Balance Tears Eye Drop] Lisinopril TAB* [Prinivil TAB 10 20 mg PO QAM tab 03/20/19 Rx MG*] Nitrofurantoin Macrocrystals* 100 mg PO BID cap 03/20/19 Rx [Macrodantin 100 mg*] hydrALAZINE TAB* [Apresoline TAB*] 50 mg PO TID tab 03/20/19 Rx - History of Current Complaint Time Seen by Provider: 05/30/19 15:14 Hx Obtained From: Patient Onset/Duration: Sudden Onset - Allergy/Home Medications Allergies/Adverse Reactions: Allergies Allergy/AdvReac Type Severity Reaction Status Date / Time Penicillins Allergy rash on Verified 03/07/19 12:19 face Home Medications: Home Medications Cod Liver Oil 1 cap PO QAM 05/19/17 [History Confirmed 05/30/19] Docusate CAP* [Colace Cap*] 100 mg PO QAM 05/19/17 [History Confirmed 05/30/19] Ferrous Sulfate TAB* 325 mg PO QAM 05/19/17 [History Confirmed 05/30/19] Multivitamins/Minerals TAB* [Theragran/minerals TAB*] 1 tab PO QAM 05/19/17 [ History Confirmed 05/30/19] Nitroglycerin TAB 0.4 MG* 0.4 mg SL Q5M PRN 05/19/17 [History Confirmed 05/30/19 ] Omeprazole CAP (NF) [Prilosec CAP* 20 MG] 20 mg PO BID 05/19/17 [History Confirmed 05/30/19] ValACYclovir (*) [Valtrex 500 mg (*)] 500 mg PO BID 05/19/17 [History Confirmed 05/30/19] Magnesium Hydroxide LIQ* [Milk of Magnnasir LIQ*] 30 ml PO Q4H PRN [facility] 01/23/18 [Rx Confirmed 05/30/19] Calcium Carbonate TAB* 600 mg PO BID 03/05/18 [History Confirmed 05/30/19] Baclofen TAB* [Lioresal TAB*] 10 mg PO BID 06/20/18 [History Confirmed 05/30/19] Gabapentin CAP(*) [Neurontin 100 mg CAP(*)] 100 mg PO TID 06/20/18 [History Confirmed 05/30/19] Atorvastatin* [Lipitor 20 MG*] 20 mg PO QPM 03/07/19 [History Confirmed 05/30/19 ] oxyCODONE/Acetamin 5/325 MG* [Percocet 5/325 TAB*] 1 - 2 tab PO TID PRN [History Confirmed 05/30/19] Senna TAB 8.6 mg* [Senokot 8.6 mg TAB*] 1 tab PO QAM PRN #0 03/09/19 [Rx Confirmed 05/30/19] Acetaminophen TAB* [Tylenol TAB*] 650 mg PO BID PRN 05/30/19 [History Confirmed 05/30/19] Aspirin EC TAB* [Ecotrin EC Low Dose 81 MG*] 81 mg PO DAILY 05/30/19 [History Confirmed 05/30/19] Cranberry Fruit Extract/Vit C [[facility]vs Cranberry-Vitamin C Sfgl] 2 cap PO DAILY 09/12 [History Confirmed 05/30/19] DULoxetine DR CAP* [Cymbalta CAP*] 30 mg PO DAILY 05/30/19 [History Confirmed ] Denosumab [Prolia] 60 mg SUBCUT Q6M 05/30/19 [History Confirmed 05/30/19] Lisinopril TAB* [Prinivil TAB 10 MG*] 10 mg PO QAM 05/30/19 [History Confirmed 05/30/19] LoraTADine TAB(NF) [Claritin 10 MG TAB(NF)] 10 mg PO DAILY 05/30/19 [History Confirmed 05/30/19] Travoprost Z 0.004% OPHTH (NF) [Travatan Z 0.004% OPTH (NF)] 1 drop BOTH EYES BEDTIME 05/30/19 [History Confirmed 05/30/19] Triamcinolone 0.025% CM(NF) [Kenalog Cream 0.025%*] 1 applic TOPICAL BID PRN 09/12 [History Confirmed 05/30/19] dilTIAZem HCl [Diltiazem 24Hr ER (Cd)] 240 mg PO DAILY 05/30/19 [History Confirmed 05/30/19] hydrALAZINE TAB* [Apresoline TAB*] 10 mg PO TID 05/30/19 [History Confirmed 09/12] PMH/Surg Hx/FS Hx/Imm Hx Endocrine/Hematology History: Reports: Hx Diabetes, Hx Thyroid Disease - hypothyroid Denies: Hx Anticoagulant Therapy, Hx Blood Disorders, Hx Blood Transfusions, Hx Bone Marrow Disease, Hx Systemic Lupus Erythematosus, Hx Sickle Cell Disease , Hx Anemia, Hx Unexplained Bleeding Cardiovascular History: Reports: Hx Angina, Hx Angioplasty, Hx Coronary Artery Disease, Hx Deep Vein Thrombosis, Hx Hypercholesterolemia, Hx Hypertension, Hx Myocardial Infarction, Other Cardiovascular Problems/Disorders - a fib Denies: Hx Aneurysm, Hx Auto Implanted Cardiovert Defib, Hx Cardiac Arrest, Hx Cardiomegaly, Hx Congenital Heart Disease, Hx Congestive Heart Failure, Hx Hypotension, Hx Pacemaker/ICD, Hx Peripheral Vascular Disease, Hx Rheumatic Fever, Hx Syncope, Hx Valvular Heart Disease Respiratory History: Reports: Hx Sleep Apnea - states hx of but does not use CPAP at home Denies: Hx Asthma, Hx Chronic Bronchitis, Hx Chronic Obstructive Pulmonary Disease (COPD), Hx Cystic Fibrosis, Hx Lung Cancer, Hx Pleural Effusion, Hx Pneumonia, Hx Pulmonary Edema, Hx Pulmonary Embolism, Hx Seasonal Allergies, Other Respiratory Problems/Disorders GI History: Reports: Hx Diverticulosis, Hx Gastroesophageal Reflux Disease, Hx Gastrointestinal Bleed Denies: Hx Cirrhosis, Hx Crohn's Disease, Hx Gall Bladder Disease, Hx Hiatal Hernia, Hx Irritable Bowel, Hx Jaundice, Hx Obstructive Bowel, Hx Ileostomy, Hx Pyloric Stenosis, Hx Ulcer, Other GI Disorders History: Denies: Hx Acute Renal Failure, Hx Benign Prostatic Hyperplasia, Hx Chronic Renal Failure, Hx Dialysis, Hx Kidney Infection, Hx Kidney Stones, Other Problems/Disorders Musculoskeletal History: Reports: Hx Arthritis, Hx Back Problems, Hx Tendonitis - fingers, 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) Denies: Hx Bursitis, Hx Congenital Bone Abnormalities, Hx Fibromyalgia, Hx Gout, Hx Orthopedic Injury, Hx Osteoporosis, Hx Scoliosis Sensory History: Reports: Hx Cataracts, Hx Contacts or Glasses - contacts, Hx Glaucoma, Hx Vision Problem, Hx Hearing Problem - hard of hearing Denies: Hx Eye Injury, Hx Eye Prosthesis, Hx Legally Blind, Hx Macular Degeneration, Hx Deafness, Hx Hearing Aid, Other Sensory Impairments Opthamlomology History: Reports: Hx Cataracts, Hx Contacts or Glasses - contacts , Hx Glaucoma, Hx Vision Problem Denies: Hx Eye Injury, Hx Eye Prosthesis, Hx Legally Blind, Hx Macular Degeneration, Other Sensory Impairments Neurological History: Reports: Hx Headaches Denies: Hx Dementia, Hx Developmental Delay, Hx Migraine, Hx Seizures, Hx Spinal Cord Injury, Hx Transient Ischemic Attacks (TIA), Other Neuro Impairments /Disorders Psychiatric History: Denies: Hx Anxiety, Hx Attention Deficit Hyperactivity Disorder, Hx Eating Disorder, Hx Depression, Hx Panic Disorder, Hx Post Traumatic Stress Disorder, Hx Inpatient Treatment, Hx Community Mental Health Tx, Hx Schizophrenia, Hx Bipolar Disorder, Hx Suicide Attempt, Hx Substance Abuse, Other Psychiatric Issues/Disorders - Cancer History Hx Chemotherapy: No Hx Radiation Therapy: No - Surgical History Surgery Procedure, Year, and Place: KNEE REPLACEMENTS- LEFT KNEE X2, RIGHT KNEE X1;. Hysterectomy;. CATARACTS;. PART OF COLON REMOVED FOR DIVERTICULITIS;. CARPAL TUNNEL. Back surgery 02/2018 Hx Anesthesia Reactions: No - Immunization History Date of Tetanus Vaccine: unk Date of Influenza Vaccine: 2016 Infectious Disease History: No Infectious Disease History: Reports: History Other Infectious Disease - herpes Denies: Hx Clostridium Difficile, Hx Hepatitis, Hx Human Immunodeficiency Virus (HIV), Hx of Known/Suspected MRSA, Hx Shingles, Hx Tuberculosis, Hx Known/ Suspected VRE, Hx Known/Suspected VRSA, Traveled Outside the [place] in Last 30 Days - Family History Known Family History: Positive: Hypertension, Diabetes, Other - Diverticulitis, sickle cell, arthritis Family History: Type II - Social History Alcohol Use: Rare Alcohol Amount: "once a year" Hx Substance Use: No Substance Use Type: Reports: None Hx Tobacco Use: No Smoking Status (MU): Never Smoked Tobacco Have You Smoked in the Last Year: No Review of Systems Negative: Chest Pain Positive: Shortness Of Breath Positive: Weakness - in legs . Negative: Headache All Other Systems Reviewed And Are Negative: Yes Physical Exam - Summary Physical Exam Summary: VITAL SIGNS: Reviewed. GENERAL: Patient is an elderly female. She is distressed and crying. HEAD AND FACE: No signs of trauma. No ecchymosis, hematomas or skull depressions. No sinus tenderness. EYES: PERRLA, EOMI x 2, No injected conjunctiva, no nystagmus. EARS: Hearing grossly intact. Ear canals and tympanic membranes are within normal limits. MOUTH: Oropharynx within normal limits. NECK: Supple, trachea is midline, no adenopathy, no JVD, no carotid bruit, no c- spine tenderness, neck with full ROM. CHEST: Symmetric, no tenderness at palpation. LUNGS: Clear to auscultation bilaterally. No wheezing or crackles. CVS: Regular rate and rhythm, S1 and S2 present, no murmurs or gallops appreciated. ABDOMEN: Soft, non-tender. No signs of distention. No rebound, no guarding, and no masses palpated. Bowel sounds are normal. EXTREMITIES: FROM in all major joints, no edema, no cyanosis or clubbing. NEURO: No facial droop. Asterixis in upper extremities. Weakness in both legs. SKIN: Dry and warm. Triage Information Reviewed: Yes Vital Signs On Initial Exam: Initial Vitals Temp Pulse Resp BP Pulse Ox 97.8 F 109 20 137/114 93 05/30/19 15:14 05/30/19 15:14 05/30/19 15:14 05/30/19 15:14 05/30/19 15:14 Vital Signs Reviewed: Yes - [place] Coma Scale Best Eye Response: 4 - Spontaneous Best Motor Response: 5 - Purposeful Movement Best Verbal Response: 5 - Oriented Coma Scale Total: 14 Procedures - Sedation Patient Received Moderate/Deep Sedation with Procedure: No Diagnostics - Vital Signs Vital Signs Temp Pulse Resp BP Pulse Ox 05/30/19 15:14 97.8 F 109 20 137/114 93 - Laboratory Result Diagrams: 05/31/19 05:46 05/31/19 05:46 Lab Statement: Any lab studies that have been ordered have been reviewed, and results considered in the medical decision making process. - Radiology CXR Radiology Interpretation Completed By: Radiologist Summary of Radiographic Findings: IMPRESSION: No active cardiopulmonary disease is noted. has reviewed this report. - CT CT Brain CT Interpretation Completed By: Radiologist Summary of CT Findings: IMPRESSION: NO ACUTE INTRACRANIAL PATHOLOGY. has reviewed this report. - EKG 1541 Cardiac Rate: NL EKG Rhythm: Sinus Rhythm Summary of EKG Findings: An EKG at 1541 reveals sinus rhythm at a rate of [address] elevations and right bundle branch block. This EKG was reviewed and interpreted by . Course/Dx - Course Assessment/Plan: 83 year old F presenting to [facility] accompanied by EMS complains of shortness of breath, chest pain and weakness in the legs since earlier today. Patient was originally called in as a code redmond at 1506 which was later cancelled. She has difficulty responding to commands. She denies chest pain and headaches. Patient is a poor historian and was unable to communicate symptoms. Last known well time is unknown and her base line mental state is also unknown. She does not use O2 at home but does use a walker. The patient rates the pain 0/ 10 in severity. Symptoms aggravated by nothing. Symptoms alleviated by nothing. Medications reviewed. Allergies noted. Deepak patel was called by EMS at 1506. Dr. Mccarty at bedside. She reports the patient doesnt have any neurological deficits. NIH score is equal to 0, and the GCS is 14. Neurologist requested to cancel the code patel. In the ED course the patient was placed in a monitor and storage bin tender, IV access was obtained, IV fluids started. Past medical records reviewed. Blood test w/o a significant abnormality except for RBCs of 3.6, hemoglobin 11.2, APTT of 22.9, BUN 42, creatinine 2.35, calcium 10.5. ABG shows a pH of 7.4, PCO2 44, PO2 76, O2 sat 98.8. CXR IMPRESSION: No active cardiopulmonary disease is noted. Head CT impression: NO ACUTE INTRACRANIAL PATHOLOGY. EKG at 1541 reveals sinus rhythm at a rate of [address] elevations and right bundle branch block. Blood pressure was ablated therefore the patient was given hydralazine 10 mg IV. Heart score is equal to 5. I discuss my physical exam and test results with from the hospitalist services and he agrees to admit the patient to his services. The patient is hemodynamically stable. - Diagnoses Provider Diagnoses: Hypertensive encephalopathy, Chest pain, Dehydration, Acute renal failure, Chronic renal failure, Asterixis - Physician Notifications Discussed Care of Patient With: Radha Rodriguez - admit Instructed by Provider To: Admit As Inpatient Discharge ED - Sign-Out/Discharge Documenting (check all that apply): Patient Departure - admit - Discharge Plan Condition: Stable Disposition: ADMITTED TO [facility] - Billing Disposition and Condition Condition: STABLE Disposition: Admitted to [facility] - Attestation Statements Document Initiated by Chaoibe: Yes Documenting Scribe: Sabas Manriquez Provider For Whom Samuel is Documenting (Include Credential): Dr.Walter Sahil MD Scribe Attestation: I, Sabas Manriquez, scribed for Dr.Walter Sahil MD on 05/31/19 at 0725. Scribe Documentation Reviewed: Yes Provider Attestation: The documentation as recorded by the Sabas spann accurately reflects the service I personally performed and the decisions made by me, Dr.Walter Sahil MD Status of Scribe Document: Viewed
[2019-05-30 15:44] LABS: Activated Partial Thrombo Time 22.9 seconds (26.0-38.0); INR 0.87 (0.82-1.09)
[2019-05-30 16:09] LABS: ABS Eosinophils 0.4 10^3/ul (0-0.6); ABS Lymphocytes 1.3 10^3/ul (1.0-4.8); ABS Monocytes 0.7 10^3/ul (0-0.8); ABS Neutrophils 5.9 10^3/ul (1.5-7.7); Eosinophil % 4.6 %; Hematocrit 35 % (35-47); Hemoglobin 11.2 g/dL (12.0-16.0); Mean Corpuscular HGB Conc 33 g/dL (31-36); Mean Corpuscular Hemoglobin 31 pg (27-31); Mean Corpuscular Volume 94 fL (80-97); Mean Platelet Volume 7.5 fL (7.4-10.4); Platelet Count 262 10^3/uL (150-450); Red Blood Count 3.65 10^6 /uL (3.70-4.87); Red Cell Distribution Width 15 % (10-15); White Blood Count 8.4 10^3/uL (3.5-10.8)
[2019-05-30 16:12] LABS: ALT 13 U/L (7-52); Albumin 4.3 g/dL (3.2-5.2); Albumin/Globulin Ratio 1.3 (1-3); Alkaline Phosphatase 76 U/L (34-104); BUN/Creatinine Ratio 17.9 (8-20); Blood Urea Nitrogen 42 mg/dL (6-24); CO2 Carbon Dioxide 29 mmol/L (22-32); Calcium 10.5 mg/dL (8.6-10.3); Chloride 102 mmol/L (101-111); Cholesterol 172 mg/dL; EGFR Non-African American 19.9 (>60); Globulin 3.4 g/dL (2-4); Glucose 91 mg/dL (70-100); HDL Cholesterol 71.3 mg/dL; LDL Cholesterol 77 mg/dL; Sodium 141 mmol/L (135-145); Total Protein 7.7 g/dL (6.4-8.9); Triglycerides 117 mg/dL
[2019-05-30 16:29] LABS: Troponin I 0.01 ng/mL (<0.03)
[2019-05-30 16:37] LABS: Alcohol < 10 mg/dL (<10)
--- OUTSIDE RECORDS SUMMARY | 2019-05-30 16:50 | XMS REPORT ---
:1935 Author Organization [facility] Care Team Providers Name Role Phone Unavailable Unavailable Unavailable Problems Condition Condition Condition Status Onset Resolution Last Treating Comments Name Details Category Date Date Treatment Clinician Date Hypertensiv Hypertensiv Diagnosis Active 2018-03 Celia e chronic e chronic 2- Emmanuel kidney kidney [id number] disease disease with stage with stage 1 through 1 through stage 4 stage 4 chronic chronic kidney kidney disease, or disease, or unspecified unspecified chronic chronic kidney kidney disease disease 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 [id number] 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 2018-03 Celia kidney kidney 2- Emmanuel disease, disease, [id number] stage 3 stage 3 (moderate) (moderate) Spinal Spinal Diagnosis Active 2018-03 Celia stenosis, stenosis, - Emmanuel cervical cervical [id number] region region 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 Obstructive Obstructive Diagnosis Active 2018-03 Celia sleep apnea sleep apnea 2-26 Emmanuel (adult) (adult) [id number] (pediatric) (pediatric) Morbid Morbid Diagnosis Active Celia (severe) (severe) Emmanuel obesity due obesity due [id number] to excess to excess calories calories Other Other Diagnosis Active Celia insomnia insomnia Emmanuel [id number] Unspecified Unspecified Diagnosis Active Celia glaucoma glaucoma Emmanuel [id number] Other iron 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 [id number] Vitamin Vitamin Diagnosis Active Celia deficiency, deficiency, Emmanuel unspecified unspecified [id number] Hyperlipide Hyperlipide Diagnosis Active Celia prashanth, prashanth, Emmanuel unspecified unspecified [id number] Gastro-esop Gastro-esop Diagnosis Active Celia hageal hageal Emmanuel reflux reflux [id number] disease disease without without esophagitis esophagitis Slow Slow Diagnosis Active Celia transit transit Emmanuel constipatio constipatio [id number] n n Pain in Pain in Diagnosis Active Celia left left Emmanuel shoulder shoulder [id number] Personal Personal Diagnosis Active Celia history of history of Emmanuel transient transient [id number] ischemic ischemic attack attack (TIA), and (TIA), and cerebral cerebral infarction infarction without without residual residual deficits deficits Personal Personal Diagnosis Active Celia history of history of Emmanuel urinary urinary [id number] (tract) (tract) infections infections emt intermediate emt intermediate Diagnosis Active Celia (current) (current) Emmanuel use of use of [id number] opiate opiate analgesic analgesic emt intermediate emt intermediate Diagnosis Active Celia (current) (current) Emmanuel use of use of [id number] antithrombo antithrombo tics/antipl tics/antipl atelets atelets Other long Other long Diagnosis Active Celia term term Emmanuel (current) (current) [id number] drug drug therapy therapy Pain frequent Pain Mgmt Active 2020-0 Xochitl pain 2-15 (Guerda) 09:00: Kamlesh [id number] Cardio edema Cardiovasc Active 2020-0 Xochitl ular 2-15 (Guerda) 09:00: Kamlesh [id number] Cardio knowledge/s Cardiovasc Active 2020-0 Xochitl kill ular 2-15 (Guerda) deficit: pt 09:00: Kamlesh [id number] Respiratory dyspnea Respirator Active 2020-0 Xochitl present y 2-15 (Guerda) 09:00: Kamlesh [id number] Endo/Patrice anti-coagul Endo/Patrice Active 2020-0 Xochitl ation 2-15 (Guerda) therapy 09:00: Kamlesh [id number] Sensory impaired Sensory Active 2020-0 Xochitl hearing 2-15 (Guerda) 09:00: Kamlesh [id number] Integument skin Integument Active 2020-0 Xochitl integrity 2-15 (Guerda) risk 09:00: Kamlesh [id number] Nutrition nutritional Nutrition Active 2020-0 Xochitl restriction 2-15 (Guerda) s 09:00: Kamlesh [id number] Elimination urinary Eliminatio Active 2020-0 Xochitl incontinenc n 2-15 (Guerda) e 09:00: Kamlesh [id number] Neuro depressive Neuro/Emot Active 2020-0 Xochitl feelings ion 2-15 (Guerda) present 09:00: Whitlock [id number] Neuro impaired Neuro/Emot Active 2020-0 Xochitl decision-ma ion 2-15 (Guerda) bryanna 09:00: Whitlock [id number] Neuro memory Neuro/Emot Active 2020-0 Xochitl deficit ion 2-15 (Guerda) needing 09:00: Kamlesh supervision [id number] Activity ADL Activity Active 2020-0 Xochitl assistance 2-15 (Guerda) required 09:00: Whitlock [id number] Activity self-care Activity Active 2020-0 Xochitl deficit 2-15 (Guerda) 09:00: Kamlesh [id number] Safety fall risk Safety Active 2020-0 Xochitl factor 2-15 (Guerda) present 09:00: Kamlesh [id number] Safety risk for Safety Active 2020-0 Xochitl hospitaliza 2-15 (Guerda) tion 09:00: Kamlesh [id number] Safety can be left Safety Active 2020-0 Xochitl alone for 2-15 (Guerda) only short 09:00: Kamlesh periods [id number] Medication oral med Meds Active 2020-0 Xochitl assistance 2-15 (Guerda) required 09:00: Kamlesh [id number] Medication potential Meds Active 2020-0 Xochitl clinically 2-15 (Guerda) significant 09:00: Kamlesh medication [id number] issue Musculoskel transfer Musculoske Active 2020-0 Xochitl etal assistance letal 2-15 (Guerda) required 09:00: Kamlesh [id number] Musculoskel requires Musculoske Active 2020-0 Xochitl etal human letal 2-15 (Guerda) assist to 09:00: Kamlesh leave home 00 [id number] Pain knowledge/s Pain Mgmt Active 2019- Tho kill 2-17 John deficit: pt 12:03: [id number] ROM ROM PT: ROM Active Tho deficit: UE 2-17 John 12:03: [id number] Strength/To strength PT: Active 0 Tho ne/Motor deficit: LE Strength 2-17 John Control 12:03: [id number] 00 Strength/To knowledge/s PT: Active 2019-0 Tho ne/Motor kill Strength 2-17 John Control deficit LE: 12:03: [id number] pt 00 Bed mobility/tr PT/OT: Bed Active 2020-0 Tho Mobility/Tr ansfer Mobility/T 2-17 John arteaga device ransfer 12:03: [id number] present 00 Bed transfer PT/OT: Bed Active 2020-0 Tho Mobility/Tr deficit: Mobility/T 2-17 John arteaga sit/stand ransfer 12:03: [id number] 00 Bed transfer PT/OT: Bed Active 2020-0 Tho Mobility/Tr deficit: Mobility/T 2-17 Kobkrystin arteaga standing ransfer 12:03: [id number] pivot 00 Bed transfer PT/OT: Bed Active 2020-0 Tho Mobility/Tr deficit: Mobility/T 2-17 Kobkrystin arteaga toilet/comm [facility] 12:03: [id number] ode 00 Bed transfer PT/OT: Bed Active 2020-0 Toh Mobility/Tr deficit: Mobility/T 2-17 John arteaga shower/tub [facility] 12:03: [id number] 00 Bed transfer PT/OT: Bed Active 2020-0 Toh Mobility/Tr deficit: Mobility/T 2-17 John arteaga vehicle ransfer 12:03: [id number] 00 Bed knowledge/s PT/OT: Bed Active 2020-0 Tho Mobility/Tr kill Mobility/T 2-17 John arteaga deficit: pt ransfer 12:03: [id number] 00 Bed bed PT/OT: Bed Active 2020-0 Tho Mobility/Tr mobility Mobility/T 2-17 John arteaga deficit ransfer 12:03: [id number] 00 Balance/End balance/case management coordinator PT/OT: Active 2020-0 Tho urance rdination Balance/En 2-17 John deficit durance 12:03: [id number] 00 OT: Self self-care OT: Active 2020-0 Tho Care deficit Self-Care 2-17 John 12:03: [id number] 00 OT: Self knowledge/s OT: Active 2020-0 Tho Care kill Self-Care 2-17 John deficit: pt 12:03: [id number] 00 Gait/Locomo gait PT/OT: Active 2020-0 Tho tion assistive Gait/Locom 2-17 Kobziewicz problems device otion 12:03: [id number] present 00 Gait/Locomo knowledge/s PT/OT: Active Tho tion kill Gait/Locom 2-17 Kobziewicz problems deficit: pt otion 12:03: [id number] 00 Gait/Locomo gait PT/OT: Active Tho tion deficit Gait/Locom 2-17 Kobziewicz problems otion 12:03: [id number] 00 Allergies, Adverse Reactions, Alerts Allergy Name Allergy Status Severity Reaction(s) Onset Inactive Treating Comments Type Date Date Clinician Penicillins Allergen Active Unknown Reaction Sonia Group Unknown 2-15 Kailash [id number] cat dog Unknown Active Unknown Reaction 0 Sonia dander, Unknown 2-15 Kailash perfume,tar, [id number] cigarettes Medications Ordered Filled Start Stop Current Ordering Indication Dosage Frequency Signature Comments Components Medication Medication Date Date Medication? Clinician (SIG) Name Name baclofen 10 baclofen 10 2019- Yes Sopchak Unknown Unknown mg tablet mg tablet 2-15 DO,Gal Calcium 600 Calcium 600 0 Yes Sopchak Unknown Unknown + D(3) 600 + D(3) 600 2-15 DO,Gal mg (1,500 mg (1,500 mg)-200 mg)-200 unit tablet unit tablet cod liver cod liver 2019-0 Yes Sopchak Unknown Unknown oil capsule oil capsule 2-15 DO,Gal docusate docusate 2019-0 Yes Sopchak Unknown Unknown sodium 100 sodium 100 2-15 DO,Gal mg capsule mg capsule dilTIAZem dilTIAZem 0 Yes Sopchak Unknown Unknown CD 240 mg CD 240 mg 2-15 DO,Gal capsule,ext capsule,ext ended ended release 24 release 24 hr hr DULoxetine DULoxetine 2019-0 Yes Sopchak Unknown Unknown 30 mg 30 mg 2-15 DO,Gal capsule,del capsule,del ayed ayed release release gabapentin gabapentin 2019-0 Yes Sopchak Unknown Unknown 100 mg 100 mg 2-15 DO,Gal capsule capsule hydrALAZINE hydrALAZINE 2019-0 Yes Sopchak Unknown Unknown 25 mg 25 mg 2-15 DO,Gal tablet tablet Iron Iron 2019- Yes Sopchak Unknown Unknown (ferrous (ferrous 2-15 DO,Gal sulfate) sulfate) 325 mg (65 325 mg (65 mg iron) mg iron) tablet tablet atorvastati atorvastati Yes Sopchak Unknown Unknown n 20 mg n 20 mg 2-15 DO,Gal tablet tablet lisinopril lisinopril Yes Sopchak Unknown Unknown 10 mg 10 mg 2-15 DO,Gal tablet tablet Milk of Milk of Yes Sopchak Unknown Unknown Magnesia Magnesia 2-15 DO,Gal 400 mg/5 mL 400 mg/5 mL oral oral suspension suspension multivitami multivitami Yes Sopchak Unknown Unknown n capsule n capsule 2-15 DO,Gal nitroglycer nitroglycer Yes Sopchak Unknown Unknown in 0.4 mg in 0.4 mg 2-15 DO,Gal sublingual sublingual tablet tablet omeprazole omeprazole Yes Sopchak Unknown Unknown 20 mg 20 mg 2-15 DO,Gal capsule,del capsule,del ayed ayed release release oxyCODONE-a oxyCODONE-a Yes Sopchak Unknown Unknown cetaminophe cetaminophe 2-15 DO,Gal n 5 mg-325 n 5 mg-325 mg tablet mg tablet clopidogrel clopidogrel Yes Sopchak Unknown Unknown 75 mg 75 mg 2-15 DO,Gal tablet tablet valACYclovi valACYclovi Yes Sopchak Unknown Unknown r 500 mg r 500 mg 2-15 DO,Gal tablet tablet cetirizine cetirizine Yes Sopchak Unknown Unknown 10 mg 10 mg 2-15 DO,Gal capsule capsule cranberry cranberry Yes Sopchak Unknown Unknown 400 mg 400 mg 2-15 DO,Gal capsule capsule polyethylen polyethylen Yes Sopchak Unknown Unknown e glycol e glycol 2-15 DO,Gal 3350 17 3350 17 gram/dose gram/dose oral powder oral powder Vital Signs Vital Name Observation Time Observation Value Comments SYSTOLIC mm[Hg] 2019-05-26 18:10:40 128 mm[Hg] mm[Hg] Method: Sit SYSTOLIC mm[Hg] 2019-05-12 18:10:26 130 mm[Hg] mm[Hg] Method: Stand DIASTOLIC mm[Hg] 2019-05-26 18:10:40 72 mm[Hg] mm[Hg] Method: Sit DIASTOLIC mm[Hg] 2019-05-12 18:10:26 80 mm[Hg] mm[Hg] Method: Stand PULSE 2019-05-26 18:10:40 68 /min /min RESP RATE 2019-05-13 18:10:27 18 /min /min Procedures This patient has no known procedures. Results This patient has no known results.
--- OUTSIDE RECORDS SUMMARY | 2019-05-30 16:50 | XMS REPORT ---
:1935 Author Organization [facility] Care Team Providers Name Role Phone Unavailable Unavailable Unavailable Problems Condition Condition Condition Status Onset Resolution Last Treating Comments Name Details Category Date Date Treatment Clinician Date Hypertensiv Hypertensiv Diagnosis Active 2018-03 Celia e chronic e chronic 2- Emmanuel kidney kidney [id number] disease disease with stage with stage 1 through 1 through stage 4 stage 4 chronic chronic kidney kidney disease, or disease, or unspecified unspecified chronic chronic kidney kidney disease disease 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 [id number] 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 2018-03 Celia kidney kidney 2- Emmanuel disease, disease, [id number] stage 3 stage 3 (moderate) (moderate) Spinal Spinal Diagnosis Active 2018-03 Celia stenosis, stenosis, - Emmanuel cervical cervical [id number] region region 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 [id number] [place] 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 Obstructive Obstructive Diagnosis Active 2018-03 Celia sleep apnea sleep apnea 2-26 Emmanuel (adult) (adult) [id number] (pediatric) (pediatric) Morbid Morbid Diagnosis Active Celia (severe) (severe) Emmanuel obesity due obesity due [id number] to excess to excess calories calories Other Other Diagnosis Active Celia insomnia insomnia Emmanuel [id number] Unspecified Unspecified Diagnosis Active Celia glaucoma glaucoma Emmanuel [id number] Other iron 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 [id number] Vitamin Vitamin Diagnosis Active Celia deficiency, deficiency, Emmanuel unspecified unspecified [id number] Hyperlipide Hyperlipide Diagnosis Active Celia prashanth, prashanth, Emmanuel unspecified unspecified [id number] Gastro-esop Gastro-esop Diagnosis Active Celia hageal hageal Emmanuel reflux reflux [id number] disease disease without without esophagitis esophagitis Slow Slow Diagnosis Active Celia transit transit Emmanuel constipatio constipatio [id number] n n Pain in Pain in Diagnosis Active Celia left left Emmanuel shoulder shoulder [id number] Personal Personal Diagnosis Active Celia history of history of Emmanuel transient transient [id number] ischemic ischemic attack attack (TIA), and (TIA), and cerebral cerebral infarction infarction without without residual residual deficits deficits Personal Personal Diagnosis Active Celia history of history of Emmanuel urinary urinary [id number] (tract) (tract) infections infections longterm longterm Diagnosis Active Celia (current) (current) Emmanuel use of use of [id number] opiate opiate analgesic analgesic 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 Celia (current) (current) Emmanuel use of use of [id number] antithrombo antithrombo tics/antipl tics/antipl atelets atelets Other long Other long Diagnosis Active Celia term term Emmanuel (current) (current) [id number] drug drug therapy therapy Pain frequent Pain Mgmt Active 2020-0 Xochitl pain 2-15 (Guerda) 09:00: Kamlesh [id number] Cardio edema Cardiovasc Active 2020-0 Xochitl ular 2-15 (Guerda) 09:00: Kamlesh [id number] Cardio knowledge/s Cardiovasc Active 2020-0 Xochitl kill ular 2-15 (Guerda) deficit: pt 09:00: Kamlesh [id number] Respiratory dyspnea Respirator Active 2020-0 Xochitl present y 2-15 (Guerda) 09:00: Kamlesh [id number] Endo/Patrice anti-coagul Endo/Patrice Active 2020-0 Xochitl ation 2-15 (Guerda) therapy 09:00: Kamlesh [id number] Sensory impaired Sensory Active 2020-0 Xochitl hearing 2-15 (Guerda) 09:00: Kamlesh [id number] Integument skin Integument Active 2020-0 Xochitl integrity 2-15 (Guerda) risk 09:00: Kamlesh [id number] Nutrition nutritional Nutrition Active 2020-0 Xochitl restriction 2-15 (Guerda) s 09:00: Kamlesh [id number] Elimination urinary Eliminatio Active 2020-0 Xochitl incontinenc n 2-15 (Guerda) e 09:00: Kamlesh [id number] Neuro depressive Neuro/Emot Active 2020-0 Xochitl feelings ion 2-15 (Guerda) present 09:00: Whitlock [id number] Neuro impaired Neuro/Emot Active 2020-0 Xochitl decision-ma ion 2-15 (Guerda) bryanna 09:00: Whitlock [id number] Neuro memory Neuro/Emot Active 2020-0 Xochitl deficit ion 2-15 (Guerda) needing 09:00: Kamlesh supervision [id number] Activity ADL Activity Active 2020-0 Xochitl assistance 2-15 (Guerda) required 09:00: Whitlock [id number] Activity self-care Activity Active 2020-0 Xochitl deficit 2-15 (Guerda) 09:00: Kamlesh [id number] Safety fall risk Safety Active 2020-0 Xochitl factor 2-15 (Guerda) present 09:00: Kamlesh [id number] Safety risk for Safety Active 2020-0 Xochitl hospitaliza 2-15 (Guerda) tion 09:00: Kamlesh [id number] Safety can be left Safety Active 2020-0 Xochitl alone for 2-15 (Guerda) only short 09:00: Kamlesh periods [id number] Medication oral med Meds Active 2020-0 Xochitl assistance 2-15 (Guerda) required 09:00: Kamlesh [id number] Medication potential Meds Active 2020-0 Xochitl clinically 2-15 (Guerda) significant 09:00: Kamlesh medication [id number] issue Musculoskel transfer Musculoske Active 2020-0 Xochitl etal assistance letal 2-15 (Guerda) required 09:00: Kamlesh [id number] Musculoskel requires Musculoske Active 2020-0 Xochitl etal human letal 2-15 (Guerda) assist to 09:00: Kamlesh leave home 00 [id number] Pain knowledge/s Pain Mgmt Active 2019- Tho kill 2-17 John deficit: pt 12:03: [id number] ROM ROM PT: ROM Active Tho deficit: UE 2-17 John 12:03: [id number] 00 Strength/To strength PT: Active 0 Tho ne/Motor deficit: LE Strength 2-17 John Control 12:03: [id number] 00 Strength/To knowledge/s PT: Active 2019-0 Tho ne/Motor kill Strength 2-17 John Control deficit LE: 12:03: [id number] pt 00 Bed mobility/tr PT/OT: Bed Active 2020-0 Tho Mobility/Tr ansfer Mobility/T 2-17 John arteaga device ransfer 12:03: [id number] present 00 Bed transfer PT/OT: Bed Active 2020-0 Tho Mobility/Tr deficit: Mobility/T 2-17 John arteaga sit/stand ransfer 12:03: [id number] 00 Bed transfer PT/OT: Bed Active 2020-0 Tho Mobility/Tr deficit: Mobility/T 2-17 Kobkrystin arteaga standing ransfer 12:03: [id number] pivot 00 Bed transfer PT/OT: Bed Active 2020-0 Tho Mobility/Tr deficit: Mobility/T 2-17 Kobkrystin arteaga toilet[facility] 12:03: [id number] ode 00 Bed transfer PT/OT: Bed Active 2020-0 Tho Mobility/Tr deficit: Mobility/T 2-17 John arteaga shower/tub [facility] 12:03: [id number] 00 Bed transfer PT/OT: Bed Active 2020-0 Tho Mobility/Tr deficit: Mobility/T 2-17 John arteaga vehicle ransfer 12:03: [id number] 00 Bed knowledge/s PT/OT: Bed Active 2020-0 Tho Mobility/Tr kill Mobility/T 2-17 John arteaga deficit: pt ransfer 12:03: [id number] 00 Bed bed PT/OT: Bed Active 2020-0 Tho Mobility/Tr mobility Mobility/T 2-17 John arteaga deficit ransfer 12:03: [id number] 00 Balance/End balance/shop cooper PT/OT: Active 2020-0 Tho urance rdination Balance/En 2-17 John deficit durance 12:03: [id number] 00 OT: Self self-care OT: Active 2020-0 Tho Care deficit Self-Care 2-17 John 12:03: [id number] 00 OT: Self knowledge/s OT: Active 2020-0 Tho Care kill Self-Care 2-17 John deficit: pt 12:03: [id number] Gait/Locomo gait PT/OT: Active 2020-0 Tho tion assistive Gait/Locom 2-17 Kobziewicz problems device otion 12:03: [id number] present 00 Gait/Locomo knowledge/s PT/OT: Active Tho tion kill Gait/Locom 2-17 Kobziewicz problems deficit: pt otion 12:03: [id number] 00 Gait/Locomo gait PT/OT: Active Tho tion deficit Gait/Locom 2-17 Kobziewicz problems otion 12:03: [id number] 00 Allergies, Adverse Reactions, Alerts Allergy Name Allergy Status Severity Reaction(s) Onset Inactive Treating Comments Type Date Date Clinician Penicillins Allergen Active Unknown Reaction Sonia Group Unknown 2-15 Kailash [id number] cat dog Unknown Active Unknown Reaction 0 Sonia dander, Unknown 2-15 Kailash perfume,tar, [id number] cigarettes Medications Ordered Filled Start Stop Current [...] Observation Time Observation Value Comments SYSTOLIC mm[Hg] 2019-05-16 18:10:30 128 mm[Hg] mm[Hg] Method: Sit SYSTOLIC mm[Hg] 2019-05-12 18:10:26 130 mm[Hg] mm[Hg] Method: Stand DIASTOLIC mm[Hg] 2019-05-16 18:10:30 70 mm[Hg] mm[Hg] Method: Sit DIASTOLIC mm[Hg] 2019-05-12 18:10:26 80 mm[Hg] mm[Hg] Method: Stand PULSE 2019-05-16 18:10:30 68 /min /min RESP RATE 2019-05-13 18:10:27 18 /min /min TEMP 2019-05-13 18:10:27 98.9 [degF] Procedures This patient has no known procedures. Results This patient has no known results.
--- OUTSIDE RECORDS SUMMARY | 2019-05-30 16:50 | XMS REPORT ---
:1935 Author Organization [facility] Care Team Providers Name Role Phone Unavailable Unavailable Unavailable Problems Condition Condition Condition Status Onset Resolution Last Treating Comments Name Details Category Date Date Treatment Clinician Date Hypertensiv Hypertensiv Diagnosis Active 2018-03 Celia e chronic e chronic 2- Emmanuel kidney kidney [id number] disease disease with stage with stage 1 through 1 through stage 4 stage 4 chronic chronic kidney kidney disease, or disease, or unspecified unspecified chronic chronic kidney kidney disease disease 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 [id number] 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 2018-03 Celia kidney kidney 2- Emmanuel disease, disease, [id number] stage 3 stage 3 (moderate) (moderate) Spinal Spinal Diagnosis Active 2018-03 Celia stenosis, stenosis, - Emmanuel cervical cervical [id number] region region 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 Obstructive Obstructive Diagnosis Active 2018-03 Celia sleep apnea sleep apnea 2-26 Emmanuel (adult) (adult) [id number] (pediatric) (pediatric) Morbid Morbid Diagnosis Active Celia (severe) (severe) Emmanuel obesity due obesity due [id number] to excess to excess calories calories Other Other Diagnosis Active Celia insomnia insomnia Emmanuel [id number] Unspecified Unspecified Diagnosis Active Celia glaucoma glaucoma Emmanuel [id number] Other iron 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 [id number] Vitamin Vitamin Diagnosis Active Celia deficiency, deficiency, Emmanuel unspecified unspecified [id number] Hyperlipide Hyperlipide Diagnosis Active Celia prashanth, prashanth, Emmanuel unspecified unspecified [id number] Gastro-esop Gastro-esop Diagnosis Active Celia hageal hageal Emmanuel reflux reflux [id number] disease disease without without esophagitis esophagitis Slow Slow Diagnosis Active Celia transit transit Emmanuel constipatio constipatio [id number] n n Pain in Pain in Diagnosis Active Celia left left Emmanuel shoulder shoulder [id number] Personal Personal Diagnosis Active Celia history of history of Emmanuel transient transient [id number] ischemic ischemic attack attack (TIA), and (TIA), and cerebral cerebral infarction infarction without without residual residual deficits deficits Personal Personal Diagnosis Active Celia history of history of Emmanuel urinary urinary [id number] (tract) (tract) infections infections 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 continuous churn Diagnosis Active Celia (current) (current) Emmanuel use of use of [id number] opiate opiate analgesic analgesic 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 continuous churn Diagnosis Active Celia (current) (current) Emmanuel use of use of [id number] antithrombo antithrombo tics/antipl tics/antipl atelets atelets Other long Other long Diagnosis Active Celia term term Emmanuel (current) (current) [id number] drug drug therapy therapy Pain frequent Pain Mgmt Active 2020-0 Xochitl pain 2-15 (Guerda) 09:00: Kamlesh [id number] Cardio edema Cardiovasc Active 2020-0 Xochitl ular 2-15 (Guerda) 09:00: Kamlesh [id number] Cardio knowledge/s Cardiovasc Active 2020-0 Xochitl kill ular 2-15 (Guerda) deficit: pt 09:00: Kamlesh [id number] Respiratory dyspnea Respirator Active 2020-0 Xochitl present y 2-15 (Guerda) 09:00: Kamlesh [id number] Endo/Patrice anti-coagul Endo/Patrice Active 2020-0 Xochitl ation 2-15 (Guerda) therapy 09:00: Kamlesh [id number] Sensory impaired Sensory Active 2020-0 Xochitl hearing 2-15 (Guerda) 09:00: Kamlesh [id number] Integument skin Integument Active 2020-0 Xochitl integrity 2-15 (Guerda) risk 09:00: Kamlesh [id number] Nutrition nutritional Nutrition Active 2020-0 Xochitl restriction 2-15 (Guerda) s 09:00: Kamlesh [id number] Elimination urinary Eliminatio Active 2020-0 Xochitl incontinenc n 2-15 (Guerda) e 09:00: Kamlesh [id number] Neuro depressive Neuro/Emot Active 2020-0 Xochitl feelings ion 2-15 (Guerda) present 09:00: Whitlock [id number] Neuro impaired Neuro/Emot Active 2020-0 Xochitl decision-ma ion 2-15 (Guerda) bryanna 09:00: Whitlock [id number] Neuro memory Neuro/Emot Active 2020-0 Xochitl deficit ion 2-15 (Guerda) needing 09:00: Kamlesh supervision [id number] Activity ADL Activity Active 2020-0 Xochitl assistance 2-15 (Guerda) required 09:00: Whitlock [id number] Activity self-care Activity Active 2020-0 Xochitl deficit 2-15 (Guerda) 09:00: Kamlesh [id number] Safety fall risk Safety Active 2020-0 Xochitl factor 2-15 (Guerda) present 09:00: Kamlesh [id number] Safety risk for Safety Active 2020-0 Xochitl hospitaliza 2-15 (Guerda) tion 09:00: Kamlesh [id number] Safety can be left Safety Active 2020-0 Xochitl alone for 2-15 (Guerda) only short 09:00: Kamlesh periods [id number] Medication oral med Meds Active 2020-0 Xochitl assistance 2-15 (Guerda) required 09:00: Kamlesh [id number] Medication potential Meds Active 2020-0 Xochitl clinically 2-15 (Guerda) significant 09:00: Kamlesh medication [id number] issue Musculoskel transfer Musculoske Active 2020-0 Xochitl etal assistance letal 2-15 (Guerda) required 09:00: Kamlesh [id number] Musculoskel requires Musculoske Active 2020-0 Xochitl etal human letal 2-15 (Guerda) assist to 09:00: Kamlesh leave home 00 [id number] Pain knowledge/s Pain Mgmt Active 2019- Tho kill 2-17 John deficit: pt 12:03: [id number] ROM ROM PT: ROM Active Tho deficit: UE 2-17 John 12:03: [id number] Strength/To strength PT: Active 0 Tho ne/Motor deficit: LE Strength 2-17 John Control 12:03: [id number] Strength/To knowledge/s PT: Active 2019-0 Tho ne/Motor kill Strength 2-17 John Control deficit LE: 12:03: [id number] pt 00 Bed mobility/tr PT/OT: Bed Active 2020-0 Tho Mobility/Tr ansfer Mobility/T 2-17 John arteaga device ransfer 12:03: [id number] present 00 Bed transfer PT/OT: Bed Active 2020-0 Tho Mobility/Tr deficit: Mobility/T 2-17 John arteaga sit/stand ransfer 12:03: [id number] 00 Bed transfer PT/OT: Bed Active 2020-0 Tho Mobility/Tr deficit: Mobility/T 2-17 Kobkrystin arteaga standing ransfer 12:03: [id number] pivot 00 Bed transfer PT/OT: Bed Active 2020-0 Tho Mobility/Tr deficit: Mobility/T 2-17 [facility]rystin [facility] 12:[facility]: [id number] ode 00 Bed transfer PT/OT: Bed Active 2020-0 Tho Mobility/Tr deficit: Mobility/T 2-17 [facility] 12:03: [id number] Bed transfer PT/OT: Bed Active 2020-0 Tho Mobility/Tr deficit: Mobility/T 2-17 John arteaga vehicle ransfer 12:03: [id number] 00 Bed knowledge/s PT/OT: Bed Active 2020-0 Tho Mobility/Tr kill Mobility/T 2-17 John arteaga deficit: pt ransfer 12:03: [id number] Bed bed PT/OT: Bed Active 2020-0 Tho Mobility/Tr mobility Mobility/T 2-17 John arteaga deficit ransfer 12:03: [id number] Balance/End balance/direct mail coordinator PT/OT: Active 2020-0 Tho urance rdination Balance/En 2-17 John deficit durance 12:03: [id number] 00 OT: Self self-care OT: Active 2020-0 Tho Care deficit Self-Care 2-17 John 12:03: [id number] 00 OT: Self knowledge/s OT: Active 2020-0 Tho Care kill Self-Care 2-17 John deficit: pt 12:03: [id number] 00 Gait/Locomo gait PT/OT: Active 2020-0 Tho tion assistive Gait/Locom 2-17 Kobziewicz problems device otion 12:03: [id number] present 00 Gait/Locomo knowledge/s PT/OT: Active Tho tion kill Gait/Locom 2-17 Kobziewicz problems deficit: pt otion 12:03: [id number] 00 Gait/Locomo gait PT/OT: Active Tho tion deficit Gait/Locom 2-17 Kobziewicz problems otion 12:03: [id number] 00 Allergies, Adverse Reactions, Alerts Allergy Name Allergy Status Severity Reaction(s) Onset Inactive Treating Comments Type Date Date Clinician Penicillins Allergen Active Unknown Reaction Sonia Group Unknown 2-15 Kailash [id number] cat dog Unknown Active Unknown Reaction 0 Sonia dander, Unknown 2-15 Kailash perfume,tar, [id number] cigarettes Medications Ordered Filled Start Stop Current [...] Observation Time Observation Value Comments SYSTOLIC mm[Hg] 2019-05-27 18:10:41 132 mm[Hg] mm[Hg] Method: Sit SYSTOLIC mm[Hg] 2019-05-12 18:10:26 130 mm[Hg] mm[Hg] Method: Stand DIASTOLIC mm[Hg] 2019-05-27 18:10:41 70 mm[Hg] mm[Hg] Method: Sit DIASTOLIC mm[Hg] 2019-05-12 18:10:26 80 mm[Hg] mm[Hg] Method: Stand PULSE 2019-05-27 18:10:41 68 /min /min RESP RATE 2019-05-27 18:10:41 18 /min /min TEMP 2019-05-27 18:10:41 98.2 [degF] Procedures This patient has no known procedures. Results This patient has no known results.
--- OUTSIDE RECORDS SUMMARY | 2019-05-30 16:50 | XMS REPORT | Continuity of Care Document ---
:1935 External Reference #:[id number] Author Name Kim Álvarez MD (transmitted by agent of provider Georgie Pablo) Address [address], [address] [place] [address] Care Team Providers Name Role Phone Anam Barroso MD - Internal Care Team Information Social Work Msw Medicine Chloe Singh PA - Physician Care Team Information Social Work Msw [phone] Public Message Service Supervisor Problems Active Problems Provider Date Chest pain Carson Hartley M.D. Onset: 04/29/2013 Dyspnea Carson Hartley M.D. Onset: 04/29/2013 Coronary arteriosclerosis Carson Hartley M.D. Onset: 04/29/2013 Essential hypertension Carson Hartley M.D. Onset: 04/29/2013 Degenerative joint disease involving Norbert Kidd M.D. Onset: 12/01/2013 multiple joints Osteoporosis Norbert Kidd M.D. Onset: 12/01/2013 Disorder of bursa of shoulder region Norbert Kidd M.D. Onset: 12/01/2013 Spinal stenosis Norbert Kidd M.D. Onset: 12/01/2013 Myalgia & Myositis Unspecified Norbert Kidd M.D. Onset: 04/16/2014 Senile osteoporosis Phillip Sheffield M.D. Onset: 08/13/2014 Chronic pain syndrome Phillip Sheffield M.D. Onset: 08/13/2014 Taking medication Phillip Sheffield M.D. Onset: 02/15/2015 Age-related osteoporosis without Phillip Sheffield M.D. 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 disability Jailene Mitchell MD Onset: 01/20/2018 Morbid obesity Jailene Mitchell MD Onset: 01/20/2018 Type 2 diabetes mellitus Jailene Mitchell MD Onset: 01/20/2018 Malaise and fatigue Jailene Mitchell MD Onset: 01/20/2018 Type 2 diabetes mellitus with Jailene Mitchell MD Onset: 01/20/2018 diabetic neuropathy, unspecified Anemia Rachelezequiel Medellin, PICKING TABLE WORKER Onset: 01/22/2018 Shoulder joint pain Rachel Medellin PICKING TABLE WORKER Onset: 01/22/2018 Spinal stenosis of thoracic region Rachel Medellin P[employer]ING TABLE WORKER Onset: 01/22/2018 Spinal cord disease BLACK Goff Onset: 01/23/2018 Localized, primary osteoarthritis of Stephen Calixto M.D. Onset: 04/24/2018 the shoulder region Convalescence after surgery Stephen Calixto M.D. 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 Onset: 08/14/2018 intervertebral disc Pain in thoracic spine Stephen Calixto M.D. Onset: 09/04/2018 Social History Type Date Description Comments Sex Unknown Tobacco Use Start: Unknown Never Smoked Cigarettes ETOH Use Denies alcohol use ETOH Use Never used alcohol Recreational Drug Use Denies Drug Use Tobacco Use Start: Unknown Patient has never smoked Tobacco Use Start: Unknown Patient has never smoked Smoking Status Reviewed: 02/04/19 Patient has never smoked Exercise Type/Frequency Exercises rarely Exercise Type/Frequency strengthening classes 2X a week Allergies, Adverse Reactions, Alerts Active Allergies Reaction Severity Comments Date Cat Dander 04/29/2013 Penicillin V 02/04/2019 Dog Dander 04/29/2013 Perfume 04/29/2013 Tar 04/29/2013 Cigarette Smoke 05/27/2013 Penicillin 12/09/2014 Inactive Allergies NKDA 02/06/2014 Medications Active Medications SIG Qnty Indications Ordering Provider Date Hydralazine HCL 1 tablet by 90tabs I12.9 Chikis Gillette MD 02/04/2019 10mg mouth three Tablets times a day Calcium 600 1 tab po bid 60tabs Nadine Toro, 06/26/2018 600mg Tablets [employer]ER Diltiazem HCL ER 1 by mouth every Carson Hartley, 06/24/2018 240mg day M.DEladio Caps ER 24HR Prolia 60 mg sc q6mon 60mg M81.0 Nadine Toro, 10/15/2017 60mg/ml Solution [employer] J[employer] ASSEMBLER Rollator Walker use as needed Krystle Sarmiento, 06/04/2017 M.Justin Triamcinolone use on affected 60ml R21 Nadine Toro, 02/28/2016 Acetonide area 2x daily as CLAMP JIG ASSEMBLER 0.025% Lotion needed Nitrostat one sl q5min up 25tabs Carson Hartley, 01/01/2012 0.4mg Tablets to 3 doses prn, M.D. Sub if no relief call 911 Magnesium Hydroxide Unknown Powder Lasix 1 by mouth every Unknown 20mg Tablets day till june 22 Atorvastatin Calcium 1 by mouth every Unknown 20mg day Tablets Baclofen 1 tab p.o two Unknown 10mg Tablets times a day Aspirin 81 1 by mouth every Unknown 81mg Tablets day DR Acetaminophen ER 1 by mouth twice Unknown 650mg a day as needed Tablets ER Duloxetine HCL Take 1 Capsule Unknown 30mg Caps By Mouth Every DR Part Day For Mood And Anxiety Aspirin 81 1 by mouth every Unknown 81mg Tablets day DR Bhandari 1 by mouth twice Unknown 500mg Tablets a day Cranberry Plus Vitamin 2 by mouth every Unknown C day [id number]-mg-Unit Capsules Lisinopril 1 by mouth every Unknown 10mg Tablets day Klor-Con 10 1 by mouth every Unknown 10Meq Tablets day ER Simvastatin 1 by mouth every Unknown 20mg Tablets day Tramadol HCL 1-2 tablets by Unknown 50mg Tablets mouth every 6 hours as needed pain Valacyclovir HCL 1 by mouth every Unknown 500mg day Tablets Senna Laxative 1 tab by mouth Unknown 8.6mg every night at Tablets bedtime Eq Loratadine Unknown 10mg Tablets Ferrous Sulfate 1 by mouth every Unknown 325mg day Tablets Hydralazine HCL 1 tab by mouth Unknown 10mg with food twice Tablets daily Gabapentin 1 capsule three Unknown 100mg Capsules times daily. Centrum Adults as directed Unknown Tablets Oxycodone-Acetaminophe 1 po pm Linda-Esetor, BLACK Montgomery 5-325mg Tablets Iron 1 by mouth every Unknown 325(65Fe) mg Tablets day Docusate Sodium 2 tablet po Unknown 50mg daily Omeprazole 1 cap po twice Unknown 20mg Capsules daily DR Dex Pinto one drop in each Unknown 0.004% eye at hs Solution Valacyclovir HCL take 1 tablet by 60tabs Unknown 500mg mouth twice a Tablets day Potassium Chloride One tab daily 250.00 Unknown 10Meq Tablet Cod Liver Oil Plus 1 cap po qd Unknown Vitamin A&D3 Capsule Lisinopril 1 po qd 90tabs Stevanovic, 10mg Tablets Tyler Mendieta Medications Administered in Office Medication SIG Qnty Indications Ordering Provider Date Prolia Injection, Denosumab, Nurse Visit [facility] 02/27/2019 1MG Injection Triamcinolone (Kenalog) Shahram Lyons MD 12/05/2018 Injection Triamcinolone (Kenalog) Shahram Lyons MD 12/05/2018 Injection Triamcinolone (Kenalog) Shahram Lyons MD 09/06/2018 Injection Triamcinolone (Kenalog) Shahram Lyons MD 09/06/2018 Injection Prolia Injection, DenosumabNadine FNP 06/24/2018 1MG Injection Triamcinolone (Kenalog) Shahram Lyons MD 06/18/2018 Injection Depomedrol 40MG Krystle Sarmiento M.D. 03/27/2018 Injection Depomedrol 40MG Krystle Sarmiento M.D. 12/26/2017 Injection Prolia Injection, Denosumab, Nurse Visit [facility] 12/10/2017 1MG Injection Depomedrol 40MG Krystle Sarmiento M.D. 08/16/2017 Injection Depomedrol 40MG Krystle Sarmiento M.D. 06/04/2017 Injection Prolia Injection, Denosumab, Nurse Visit 04/13/2017 1MG Injection Prolia Injection, Denosumab, Kimberlyofiyoni Toro, [facility] 09/12/2016 1MG Injection Depomedrol 40MG Virgil Spence M.D. 05/03/2016 Injection Depomedrol 40MG Virgil Spence M.D. 05/03/2016 Injection Prolia Injection, Denosumab, Nurse Visit 04/10/2016 1MG Injection Prolia Injection, Denosumab, Kimberlyofia Cortez, [facility] 09/07/2015 1MG Injection Inj, Regadenoson, 0.1 MG aCrson Hartley M.D. 07/29/2015 Injection Technetium TC 99M TetrofosminCarson M.D. 07/29/2015 Per Unit Dose Up To 40 Millicuries Injection Prolia Injection, Denosumab, Phillip Sheffield M.D. 02/15/2015 1MG Injection Prolia Injection, Denosumab, Phillip Sheffield M.D. 08/13/2014 1MG Injection Depomedrol 20MG Virgil Spence M.D. 06/15/2014 Injection Depomedrol 80MG Billy Cantrell M.D. 04/09/2014 Injection Prolia Injection, Denosumab, Nurse Visit 01/28/2014 1MG Injection Depomedrol 80MG Krystle Sarmiento M.D. 12/04/2013 Injection Depomedrol 80MG Billy Cantrell M.D. 11/13/2013 Injection Inj, Regadenoson, 0.1 MG Carson Hartley M.D. 05/08/2013 Injection Technetium TC 99M TetrofosminCarson M.D. 05/08/2013 Per Unit Dose Up To 40 Millicuries Injection Depomedrol 80MG JOSE Marie 05/06/2013 Injection Depomedrol 80MG Krystle Sarmiento M.D. 11/28/2012 Injection Depomedrol 80MG Krystle Sarmiento M.D. 11/28/2012 Injection Depomedrol 40MG Virgil Spence M.D. 04/01/2012 Injection Depomedrol 80MG Virgil Spence M.D. 09/20/2011 Injection Immunizations CPT Code Status Date Vaccine Lot # [id number] Given 12/23/2008 Zoster (Zostavax) Vital Signs Date Vital Result Comment 05/21/2019 10:57am Height 60 inches 5'0" Weight 192.00 lb Heart Rate 70 /min BP Systolic Sitting 122 mmHg BP Diastolic Sitting 70 mmHg O2 % BldC Oximetry 95 % BMI (Body Mass Index) 37.5 kg/m2 02/04/2019 11:21am Height 60 inches 5'0" Weight 200.00 lb Heart Rate 81 /min BP Systolic Sitting 153 mmHg left arm large cuff BP Diastolic Sitting 75 mmHg left arm large cuff O2 % BldC Oximetry 98 % room air BMI (Body Mass Index) 39.1 kg/m2 Results Test Acquired Date Facility Test Result H/L Range Note CBC Auto 04/24/2019 [facility] White Blood 6.0 10^3/uL Normal 3.5-10.[address] [place] [address] [phone] Red Blood Count 4.10 10^6/uL Normal 3.70-4.87 Hemoglobin 12.9 g/dL Normal 12.0-16.0 Hematocrit 39 % Normal 35-47 Mean Corpuscular Volume 95 fL Normal 80-97 Mean Corpuscular Hemoglobin 31 pg Normal 27-31 Mean Corpuscular HGB Conc 33 g/dL Normal 31-36 Red Cell Distribution Width 15 % Normal 10-15 Platelet Count 253 10^3/uL Normal 150-450 Mean Platelet Volume 8.6 fL Normal 7.4-10.4 Abs Neutrophils 4.5 10^3/uL Normal 1.5-7.7 Abs Lymphocytes 0.8 10^3/uL Low 1.0-4.8 Abs Monocytes 0.5 10^3/uL Normal 0-0.8 Abs Eosinophils 0.1 10^3/uL Normal 0-0.6 Abs Basophils 0.0 10^3/uL Normal 0-0.2 Abs Nucleated RBC 0.0 10^3/uL Granulocyte % 75.8 % Lymphocyte % 13.9 % Monocyte % 7.7 % Eosinophil % 2.3 % Basophil % 0.3 % Nucleated Red Blood Cells % 0.1 Laboratory test 12/26/2018 [facility] Vitamin D 50.6 High 20- 50 [address] Total 25(Oh) ng/[place] [address] [phone] 1,25 Dihydroxy 12/26/2018 [facility] Calcitriol 36 pg/mL 18- 78 3 Vitamin D [address] [place] [address] [phone] Basic Metabolic 12/26/2018 [facility] Sodium 144 Normal 135- [address] mmol/[place] [address] [phone] Potassium 4.5 mmol/L Normal 3.5-5.0 Chloride 107 mmol/L Normal 101-111 Co2 Carbon Dioxide 30 mmol/L Normal 22-32 Anion Gap 7 mmol/L Normal 2-11 Glucose 103 mg/dL High 70-100 Blood Urea Nitrogen 39 mg/dL High 6-24 Creatinine 1.78 mg/dL High 0.51-0.95 BUN/Creatinine Ratio 21.9 High 8-20 Calcium 9.8 mg/dL Normal 8.6-10.3 Egfr Non- 27.4 >60 Egfr 33.1 >60 4 1 [id number] ROOM 33/W 2 Total 25-Hydroxyvitamin D2 and D3 (25-OH-VitD) <10 ng/mL (severe deficiency) 10-19 ng/mL (mild to moderate deficiency) 20-50 ng/mL (optimum levels) 51-80 ng/mL (increased risk of hypercalciuria) >80 ng/mL (toxicity possible) 3 ADDITIONAL INFORMATION This test was developed and its performance characteristics determined by [facility] in a manner consistent with CLIA requirements. This test has not been cleared or approved by the U.S. Food and Drug Administration. Test Performed by: [facility] [address] [place] [address] Laboratory Mechanical Technician: Yayo Harding M.D. Ph.D.; CLIA# [id number] 4 Because ethnic data is not always [...] (or dialysis) Procedures Date Code Description Status 03/17/2019 49004 ECHO Transthorasic Realtime 2D W Doppler & Color Flow Completed Hosp 03/16/2019 75699 EKG, Interpretation Only Completed 02/27/2019 76757 Admin Of Inj Completed 12/05/2018 61248 Inj/Aspir Major JT Or Bursa W/ US Completed 10/22/2017 [id number] Bone Mineral Density Test Completed 09/10/2015 [id number] Bone Mineral Density Test Completed 12/29/2013 [id number] Bone Mineral Density Test Completed 12/29/2013 [id number] Mammogram Completed 01/22/2009 [id number] Colonoscopy Completed Medical Devices Description No Information Available Encounters Type Date Location Provider Dx Diagnosis Office Visit 04/28/2019 Cj Ochoa, J20.9 Acute bronchitis, 8:30a PICKING TABLE WORKER unspecified R05 Cough Office Visit 04/23/2019 8:45a Cj Pinto J20.9 Acute bronchitis, Rafa Riggs MD unspecified [facility] Visit 03/27[facility]2019 [facility] I63.9 Cerebral [place] D.O. infarction, unspecified N39.0 Urinary tract infection, site not specified M62.81 Muscle weakness (generalized) I10 Essential (primary) hypertension Office Visit 03/20/2019 11:32a [facility] I63.9 Cerebral Assoc,immanuel Helay MD infarction, Hospitalists unspecified N17.9 Acute kidney failure, unspecified M48.02 Spinal stenosis, cervical region N39.0 Urinary tract infection, site not specified Office Visit 03/19/2019 7:00a [facility] Lenora Mccarty, R29.6 Repeated falls M62.81 Muscle weakness (generalized) M48.061 Spinal stenosis, lumbar region without neurogenic lupe I63.9 Cerebral infarction, unspecified Office Visit 03/19/2019 11:31a [facility] I63.9 Cerebral Assoc,pc MD Monet infarction, Hospitalists unspecified N17.9 Acute kidney failure, unspecified D50.9 Iron deficiency anemia, unspecified I10 Essential (primary) hypertension Office 03/18/2019 [facility] Anshul M62.81 Muscle weakness Visit 7:00a Clinic MD Jyoti (generalized) R26.9 Unspecified abnormalities of gait and mobility M47.892 Other spondylosis, cervical region Office Visit 03/18/2019 11:31a [facility] [place] I63.9 Cerebral Assoc,pc Senner, DO infarction, Hospitalists unspecified N17.9 Acute kidney failure, unspecified R25.1 Tremor, unspecified R53.1 Weakness Office Visit 03/17/2019 11:31a [facility] [place] I63.9 Cerebral Assoc,pc Senner, DO infarction, Hospitalists unspecified N17.9 Acute kidney failure, unspecified R25.1 Tremor, unspecified R53.1 Weakness Office Visit 03/16/2019 11:30a [facility] N17.9 Acute kidney Assoc,pc Senner, DO failure, Hospitalists unspecified R29.898 Oth symptoms and signs involving the musculoskeletal system R53.1 Weakness R25.1 Tremor, unspecified Office 03/16/2019 [facility] Anshul M62.81 Muscle weakness Visit 7:00a Clinic MD Jyoti (generalized) Office 03/15/2019 [facility] Elana R53.1 Weakness Visit 11:29a Assoc,pc Hospitalists BLACK Lezama R25.1 Tremor, unspecified R79.89 Other specified abnormal findings of blood chemistry N17.9 Acute kidney failure, unspecified Office Visit 03/11/2019 9:55a [facility] [place] N39.0 Urinary tract Assoc,pc Jaskaran, D.O. 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 disease of eek coronary artery w/o ang pctrs I10 Essential (primary) hypertension R07.89 Other chest pain Office Visit 12/26/2018 10:30a Rheumatology Zsofia M81.0 Age-related Services Of RAY Viveros osteoporosis w/o Ccmob current pathological fracture M25.512 Pain in left shoulder M25.511 Pain in right shoulder M47.896 Other spondylosis, lumbar region M51.34 Other intervertebral disc degeneration, thoracic region Z79.899 Other intermediate (current) drug therapy Office Visit 12/25/2018 10:30a Neurosurgery Rodney R25.1 Tremor, Services Of [facility] BLACK Rincon unspecified M54.16 Radiculopathy, lumbar region M47.896 Other spondylosis, lumbar region Assessments Date Code Description Provider 05/21/2019 R06.83 Snoring Kim Álvarez MD 05/21/2019 G47.33 Obstructive sleep apnea (adult) Kim Álvarez MD (pediatric) 05/07/2019 E11.22 Type 2 diabetes mellitus with shania Riggs MD chronic kidney disease 05/07/2019 E11.40 Type 2 diabetes mellitus with shania Riggs MD neuropathy, unspecifi 05/07/2019 I12.9 Hypertensive chronic kidney disease with Gianna Riggs MD stage 1 through stage 4 chronic kidney disease, or unspecified chronic kidney disease 05/07/2019 N18.9 Chronic kidney disease, unspecified Gianna Riggs MD 05/07/2019 E66.01 Morbid (severe) obesity due to excess Gianna Riggs MD calories 05/07/2019 R54 Age-related physical debility Gianna Riggs MD 05/07/2019 J20.9 Acute bronchitis, unspecified Gianna Riggs MD 05/07/2019 I10 Essential (primary) hypertension Gianna Riggs MD 04/28/2019 J20.9 Acute bronchitis, unspecified Anila Ochoa, P[employer]ING TABLE WORKER 04/28/2019 R05 Cough nAila Ochoa, PICKING TABLE WORKER 04/23/2019 J20.9 Acute bronchitis, unspecified Gianna Riggs MD 04/17/2019 R05 Cough Gianna Riggs MD 03/27/2019 I63.9 Cerebral infarction, unspecified Lubna Jessica D.O. 03/27/2019 N39.0 Urinary tract infection, site not Lubna Jessica D.O. specified 03/27/2019 M62.81 Muscle weakness (generalized) Justin HoO. 03/27/2019 I10 Essential (primary) hypertension Justin HoO. 03/20/2019 I63.9 Cerebral infarction, unspecified Sury Healy MD 03/20/2019 N17.9 Acute kidney failure, unspecified Sury Healy MD 03/20/2019 M48.02 Spinal stenosis, cervical region Sury Healy MD 03/20/2019 N39.0 Urinary tract infection, site not Sury Healy MD specified 03/19/2019 R29.6 Repeated falls Lenora Mccarty MD 03/19/2019 I63.9 Cerebral infarction, unspecified Sury Healy MD 03/19/2019 M62.81 Muscle weakness (generalized) Lenora Mccarty MD 03/19/2019 N17.9 Acute kidney failure, unspecified Sury Healy MD 03/19/2019 M48.061 Spinal stenosis, lumbar region without Lenora Mccarty MD neurogenic claudication 03/19/2019 D50.9 Iron deficiency anemia, unspecified Sury Healy MD 03/19/2019 I63.9 Cerebral infarction, unspecified Lenora Mccarty MD 03/19/2019 I10 Essential (primary) hypertension Sury Healy MD 03/18/2019 M62.81 Muscle weakness (generalized) Anshul Montes MD 03/18/2019 I63.9 Cerebral infarction, unspecified Lynn Senner, DO 03/18/2019 R26.9 Unspecified abnormalities of gait and Anshul Montes MD mobility 03/18/2019 N17.9 Acute kidney failure, unspecified Lynn Senner, DO 03/18/2019 M47.892 Other spondylosis, cervical region Anshul Montes MD 03/18/2019 R25.1 Tremor, unspecified Lynn Senner, DO 03/18/2019 R53.1 Weakness Lynn Senner, DO 03/17/2019 I63.9 Cerebral infarction, unspecified Kike Cristina, DO [facility] 03/17/2019 I63.9 Cerebral infarction, unspecified Lynn Senner, DO 03/17/2019 N17.9 Acute kidney failure, unspecified Lynn Senner, DO 03/17/2019 R25.1 Tremor, unspecified Lynn Senner, DO 03/17/2019 R53.1 Weakness Lynn Senner, DO 03/16/2019 R94.31 Abnormal electrocardiogram [ECG] [EKG] Kike Cristina, DO [facility] 03/16/2019 M62.81 Muscle weakness (generalized) Anshul Montes MD 03/16/2019 N17.9 Acute kidney failure, unspecified Lynn Senner, DO 03/16/2019 R29.898 Other symptoms and signs involving the Lynn Senner, DO musculoskeletal system 03/16/2019 R53.1 Weakness Lynn Senner, DO 03/16/2019 R25.1 Tremor, unspecified Lynn Senner, DO 03/15/2019 R53.1 Weakness BLACK Tejada 03/15/2019 R25.1 Tremor, unspecified BLACK Tejada 03/15/2019 R79.89 Other specified abnormal findings of BLACK Tejada blood chemistry 03/15/2019 N17.9 Acute kidney failure, unspecified BLACK Tejada 03/11/2019 N39.0 Urinary tract infection, site not Lubna Jaskaran, D.O. 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 03/11/2019 R53.1 Weakness Lubna Jessica, D.O. 03/11/2019 B96.20 Unspecified Escherichia coli [E. coli] as Lubna Trotterr, D.O. the cause of diseases classified elsewhere 03/10/2019 N39.0 Urinary tract infection, site not Lubna Jaskaran, D.O. specified 03/10/2019 B96.20 Unspecified Escherichia coli [E. coli] as Lubna Jaskaran, D.O. 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 03/10/2019 I25.10 Atherosclerotic heart disease of eek Lubna Jessica, D.O. coronary artery with 03/10/2019 I10 Essential (primary) hypertension Lubna Jessica D.O. 03/09/2019 N39.0 Urinary tract infection, site not Lubna Jaskaran, D.O. specified 03/09/2019 B96.20 Unspecified Escherichia coli [E. coli] as Lubna Jessica D.O. the cause of diseases classified elsewhere 03/09/2019 I25.10 Atherosclerotic heart disease of eek Lubna Jessica D.O. coronary artery with 03/09/2019 I10 Essential (primary) hypertension Justin HoO. 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 03/09/2019 R53.1 Weakness Urszula Ho.O. 03/08/2019 N39.0 Urinary tract infection, site not Milena Parra MD specified 03/08/2019 B96.20 Unspecified Escherichia coli [E. 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 03/07/2019 R53.1 Weakness Radha Rodriguez M.D. 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 02/27/2019 M81.0 Age-related osteoporosis without current Nurse Visit [facility] Ccmob pathological fracture 02/04/2019 I12.9 Hypertensive chronic kidney disease with Chikis Gillette MD stage 1 through stage 4 chronic kidney disease, or unspecified chronic kidney disease 02/04/2019 N18.3 Chronic kidney disease, stage 3 Chikis Gillette MD (moderate) 02/04/2019 E66.8 Other obesity Chikis Gillette MD 01/22/2019 I25.10 Atherosclerotic heart disease of eek Carson Hartley M.D. coronary artery with 01/22/2019 I10 Essential (primary) hypertension Carson Hartley M.D. 01/22/2019 R07.89 Other chest pain Carson Hartley M.D. 12/26/2018 M81.0 Age-related osteoporosis without current RAY Pak pathological fractu 12/26/2018 M25.512 Pain in left shoulder Nadine Toro, [employer] J[employer] ASSEMBLER 12/26/2018 M25.511 Pain in right shoulder Nadine Toro, [employer] J[employer] ASSEMBLER 12/26/2018 M47.896 Lumbar spondylosis Nadine Toro, [employer] J[employer] ASSEMBLER 12/26/2018 M51.34 Other intervertebral disc degeneration, Nadine Toro, [employer] J[employer] ASSEMBLER thoracic region 12/26/2018 Z79.899 Other intermediate (current) drug therapy Nadine Armandok, [employer] JIG ASSEMBLER 12/25/2018 R25.1 Tremor Rodney Rincon PA 12/25/2018 M54.16 Lumbar radiculopathy Rodney Rincon PA 12/25/2018 M47.896 Lumbar spondylosis Rodney Rincon PA 12/05/2018 M19.012 Primary osteoarthritis, left shoulder Shahram Lyons MD 12/05/2018 M19.011 Primary osteoarthritis, right shoulder Shahram Lyons MD Plan of Treatment Future Appointment(s):07/01/2019 11:00 am - Melony Noriega DNP, RN, CLAMP J[employer] ASSEMBLER-BC at [facility]07/16/2019 3:15 pm - Carson Hartley M.D. at [facility]06/11/2019 8:30 am - Felicia Huitron MD at [facility]06/30/2019 10:30 am - RAY Pak at [facility]05/21/2019 - Kim Álvarez, MDR06.83 SnoringFollow up:2 weeks CMG47.33 Obstructive sleep apnea (adult) (pediatric) Functional Status Description No Information Available Mental Status Description No Information Available Referrals Refer to Reason for Referral Status Appt Date Armando Montemayor M.D. 83 y/o female with complaints of tremor. [address] [place] [address] [place] [address] [phone]
--- OUTSIDE RECORDS SUMMARY | 2019-05-30 16:50 | XMS REPORT ---
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 [id number] Vitamin Vitamin Diagnosis Active Celia deficiency, deficiency, Emmanuel unspecified unspecified [id number] Hyperlipide Hyperlipide Diagnosis Active Celia prashanth, prashanth, Emmanuel unspecified unspecified [id number] Gastro-esop Gastro-esop Diagnosis Active Celia hageal hageal Emmanuel reflux reflux [id number] disease disease without without esophagitis esophagitis Slow Slow Diagnosis Active Celia transit transit Emmanuel constipatio constipatio [id number] n n Pain in Pain in Diagnosis Active Celia left left Emmanuel shoulder shoulder [id number] Personal Personal Diagnosis Active Celia history of history of Emmanuel transient transient [id number] ischemic ischemic attack attack (TIA), and (TIA), and cerebral cerebral infarction infarction without without residual residual deficits deficits Personal Personal Diagnosis Active Celia history of history of Emmanuel urinary urinary [id number] (tract) (tract) infections infections half-way half-way Diagnosis Active Celia (current) (current) Emmanuel use of use of [id number] opiate opiate analgesic analgesic 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 (current) (current) Emmanuel use of use of [id number] antithrombo antithrombo tics/antipl tics/antipl atelets atelets Other long Other long Diagnosis Active Celia term term Emmanuel (current) (current) [id number] drug drug therapy therapy Pain frequent Pain Mgmt Active 2020-0 Xochitl pain 2-15 (Guerda) 09:00: Kamlesh [id number] Cardio edema Cardiovasc Active 2020-0 Xochitl ular 2-15 (Guerda) 09:00: Kamlesh [id number] Cardio knowledge/s Cardiovasc Active 2020-0 Xochitl kill ular 2-15 (Guerda) deficit: pt 09:00: Kamlesh [id number] Respiratory dyspnea Respirator Active 2020-0 Xochitl present y 2-15 (Guerda) 09:00: Kamlesh [id number] Endo/Patrice anti-coagul Endo/Patrice Active 2020-0 Xochitl ation 2-15 (Guerda) therapy 09:00: Kamlesh [id number] Sensory impaired Sensory Active 2020-0 Xochitl hearing 2-15 (Guerda) 09:00: Kamlesh [id number] Integument skin Integument Active 2020-0 Xochitl integrity 2-15 (Guerda) risk 09:00: Kamlesh [id number] Nutrition nutritional Nutrition Active 2020-0 Xochitl restriction 2-15 (Guerda) s 09:00: Kamlesh [id number] Elimination urinary Eliminatio Active 2020-0 Xochitl incontinenc n 2-15 (Guerda) e 09:00: Kamlesh [id number] Neuro depressive Neuro/Emot Active 2020-0 Xochitl feelings ion 2-15 (Guerda) present 09:00: Whitlock [id number] Neuro impaired Neuro/Emot Active 2020-0 Xochitl decision-ma ion 2-15 (Guerda) bryanna 09:00: Whitlock [id number] Neuro memory Neuro/Emot Active 2020-0 Xochitl deficit ion 2-15 (Guerda) needing 09:00: Kamlesh supervision [id number] Activity ADL Activity Active 2020-0 Xochitl assistance 2-15 (Guerda) required 09:00: Whitlock [id number] Activity self-care Activity Active 2020-0 Xochitl deficit 2-15 (Guerda) 09:00: Kamlesh [id number] Safety fall risk Safety Active 2020-0 Xochitl factor 2-15 (Guerda) present 09:00: Kamlesh [id number] Safety risk for Safety Active 2020-0 Xochitl hospitaliza 2-15 (Guerda) tion 09:00: Kamlesh [id number] Safety can be left Safety Active 2020-0 Xochitl alone for 2-15 (Guerda) only short 09:00: Kamlesh periods [id number] Medication oral med Meds Active 2020-0 Xochitl assistance 2-15 (Guerda) required 09:00: Kamlesh [id number] Medication potential Meds Active 2020-0 Xochitl clinically 2-15 (Guerda) significant 09:00: Kamlesh medication [id number] issue Musculoskel transfer Musculoske Active 2020-0 Xochitl etal assistance letal 2-15 (Guerda) required 09:00: Kamlesh [id number] Musculoskel requires Musculoske Active 2020-0 Xochitl etal human letal 2-15 (Guerda) assist to 09:00: Kamlesh leave home 00 [id number] Pain knowledge/s Pain Mgmt Active 2019- Tho kill 2-17 John deficit: pt 12:03: [id number] ROM ROM PT: ROM Active Tho deficit: UE 2-17 John 12:03: [id number] 00 Strength/To strength PT: Active 0 Tho ne/Motor deficit: LE Strength 2-17 John Control 12:03: [id number] Strength/To knowledge/s PT: Active 2019-0 Tho ne/Motor kill Strength 2-17 John Control deficit LE: 12:03: [id number] pt 00 Bed mobility/tr PT/OT: Bed Active 2020-0 Tho Mobility/Tr ansfer Mobility/T 2-17 John arteaga device ransfer 12:03: [id number] present 00 Bed transfer PT/OT: Bed Active 2020-0 Tho Mobility/Tr deficit: Mobility/T 2-17 John arteaga sit/stand ransfer 12:03: [id number] 00 Bed transfer PT/OT: Bed Active 2020-0 Tho Mobility/Tr deficit: Mobility/T 2-17 Kobkrystin arteaga standing ransfer 12:03: [id number] pivot 00 Bed transfer PT/OT: Bed Active 2020-0 Tho Mobility/Tr deficit: Mobility/T 2-17 Kobkrystin arteaga toilet/comm [facility] 12:03: [id number] ode 00 Bed transfer PT/OT: Bed Active 2020-0 Tho Mobility/Tr deficit: Mobility/T 2-17 John arteaga shower/tub [facility] 12:03: [id number] 00 Bed transfer PT/OT: Bed Active 2020-0 Tho Mobility/Tr deficit: Mobility/T 2-17 John arteaga vehicle ransfer 12:03: [id number] 00 Bed knowledge/s PT/OT: Bed Active 2020-0 Tho Mobility/Tr kill Mobility/T 2-17 John arteaga deficit: pt ransfer 12:03: [id number] 00 Bed bed PT/OT: Bed Active 2020-0 Tho Mobility/Tr mobility Mobility/T 2-17 John arteaga deficit ransfer 12:03: [id number] 00 Balance/End balance/fashion coordinator PT/OT: Active 2020-0 Tho urance rdination Balance/En 2-17 John deficit durance 12:03: [id number] 00 OT: Self self-care OT: Active 2020-0 Tho Care deficit Self-Care 2-17 John 12:03: [id number] 00 OT: Self knowledge/s OT: Active 2020-0 Tho Care kill Self-Care 2-17 John deficit: pt 12:03: [id number] 00 Gait/Locomo gait PT/OT: Active 2020-0 Tho tion assistive Gait/Locom 2-17 Kobziewicz problems device otion 12:03: [id number] present 00 Gait/Locomo knowledge/s PT/OT: Active Tho tion kill Gait/Locom 2-17 Kobziewicz problems deficit: pt otion 12:03: [id number] 00 Gait/Locomo gait PT/OT: Active Tho tion deficit Gait/Locom 2-17 Kobziewicz problems otion 12:03: [id number] 00 Allergies, Adverse Reactions, Alerts Allergy Name Allergy Status Severity Reaction(s) Onset Inactive Treating Comments Type Date Date Clinician Penicillins Allergen Active Unknown Reaction Sonia Group Unknown 2-15 Kailash [id number] cat dog Unknown Active Unknown Reaction 0 Sonia dander, Unknown 2-15 Kailash perfume,tar, [id number] cigarettes Medications Ordered Filled Start Stop Current [...] Observation Time Observation Value Comments SYSTOLIC mm[Hg] 2019-05-21 18:10:35 128 mm[Hg] mm[Hg] Method: Sit SYSTOLIC mm[Hg] 2019-05-12 18:10:26 130 mm[Hg] mm[Hg] Method: Stand DIASTOLIC mm[Hg] 2019-05-21 18:10:35 72 mm[Hg] mm[Hg] Method: Sit DIASTOLIC mm[Hg] 2019-05-12 18:10:26 80 mm[Hg] mm[Hg] Method: Stand PULSE 2019-05-21 18:10:35 68 /min /min RESP RATE 2019-05-13 18:10:27 18 /min /min TEMP 2019-05-13 18:10:27 98.9 [degF] Procedures This patient has no known procedures. Results This patient has no known results.
--- OUTSIDE RECORDS SUMMARY | 2019-05-30 16:50 | XMS REPORT | Continuity of Care Document ---
:1935 External Reference #:[id number] Author Name Chloe Singh PA (transmitted by agent of provider Any Smiley) Address [address] [facility], [facility] [address] [place] [address] Care Team Providers Name Role Phone Andres Carpio MD - Nephrology Care Team Information Manager Social Responsibility [phone] Carson Hartley MD - Cardiovascular Care Team Information Manager Social Responsibility [facility] - Care Team Information Manager Social Responsibility [phone] [facility] - Sleep Disorder Care Team Information Manager Social Responsibility [phone] Diagnostic Problems Active Problems Provider Date 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 Essential hypertension Chloe Singh PA Onset: 10/03/2017 Spinal stenosis of lumbar region Chloe Singh PA Onset: 02/07/2018 Diverticular disease Chloe Singh PA Onset: 02/07/2018 Umbilical hernia Chloe SinghBLACK Onset: 02/07/2018 Chronic kidney disease stage 3 Geoffrey SinghBLACK balderas Onset: 07/18/2018 Anxiety state Geoffrey SinghBLACK balderas Onset: 10/24/2018 Essential tremor Geoffrey SinghBLACK balderas Onset: 10/24/2018 Spinal stenosis Chloe SinghBLACK Onset: 01/28/2019 Social History Type Date Description Comments Sex Unknown Tobacco Use Start: Unknown Never Smoked Cigarettes Smoking Status Reviewed: 01/28/19 Never Smoked Cigarettes ETOH Use Denies alcohol use Tobacco Use Start: Unknown Non Smoker Recreational Drug Use Denies Drug Use Exercise Type/Frequency Exercises regularly PT exercises only (minimal) Seat Belt/Car Seat Seat Belt Use - Yes Smoke Alarms Yes smoke alarm Allergies, Adverse Reactions, Alerts Active Allergies Reaction Severity Comments Date Penicillin 11/25/2015 Cephalexin Urticaria Mild 04/16/2017 Sulfamethoxazole / Trimethoprim itchy rash 05/05/2017 Medications Active Medications SIG Qnty Indications Ordering Provider Date Nystop B35.6 Favian Almeida, 05/29/2019 [id number]/GM M.D. Powder Cetirizine HCL 1 by mouth every Unknown 03/20/2019 10mg day Tablets Genteal Tears instill 1 drop Unknown 03/20/2019 into both eyes 0.1-0.3% Solution every 2 hours as needed for dry eye symptoms Latanoprost Instill 1 Drop In Unknown 12/25/2018 0.005% Each Eye Every Solution Night Bisacodyl Ec Start with one 90tabs K59.00 Favian Almeida, 11/08/2018 5mg tab qd, can M.D. Tablets DR increase to 2 if needed Calcium Carbonate 1 every day 90units Favian Almeida, 11/04/2018 M.D. 500mg Chewtabs Duloxetine HCL 1 cap by mouth 30caps F41.9 Favian Almeida, 08/28/2018 30mg every day for M.D. Caps DR Caceres mood and chronic pain Baclofen 1 tab by mouth up 90tabs Favian Almeida, 08/07/2018 20mg Tablets to three times a M.D. day as needed for spasms Oxycodone-Acetaminop 1-2 tabs by mouth 180tabs M15.0 Favian Almeida, 03/2018 hen up to 3x/day as M.D. 5-325mg Tablets needed for severe pain M48.05 M54.6 Loratadine 1 tab by mouth every 30tabs H69.90 Favian Almeida, 07/17/2018 10mg Tablets day as needed for M.D. nasal/ear congestion Furosemide Take 1 Tablet By 90tabs Favian Almeida, 07/17/2018 20mg Tablets Mouth Every Day M.D. Travatan Z 1 drop to both eyes 5ml Favian Almeida, 07/12/2018 0.004% at bedtime M.D. Solution Milk Of Magnesia 15 mls qd Unknown 07/12/2018 400mg/5ML Suspension Tylenol 8 Hour 1 by mouth three Unknown 07/12/2018 650mg times a day as needed Tablets ER for pain Atorvastatin Calcium Take 1 Tablet By 90tabs Favian Almeida, 07/12/2018 20mg Mouth Every Evening M.D. Tablets Diltiazem HCL ER 1 capsule by mouth 90caps Favian Almeida, 07/12/2018 Coated Beads daily M.D. 240mg Caps ER 24HR Gabapentin Take 1 Capsule By 180caps Favian Almeida, 07/12/2018 100mg Capsules Mouth Two Times Daily M.D. Hydralazine HCL 1/2 tablet (5mg) in 30tabs Favian Almeida, 07/12/2018 10mg the morning and in M.D. Tablets the evening, hold if dbp <60 and sbp <100 Triamcinolone apply topically daily Unknown 07/12/2018 Acetonide to abd. folds 0.025% Ointment Cod Liver Oil 1 daily Unknown 05/22/2017 Capsules Cranberry Concentrate 1 daily Unknown 05/22/2017 8400mg Capsules Miralax 1 capful in 6 oz of 510gm Favian Almeida, 05/22/2017 [id number] Powder fluid daily for M.D. constipation Omeprazole 1 cap by mouth twice 60caps Favian Almeida, 05/22/2017 [address]mg [address] daily M[address]D. DR Staples Multivitamin daily Favian Almeida, 05/16/2017 M.D. Iron 1 by mouth daily Unknown 05/16/2017 325(65Fe) mg Tablets Aspir-Low 1 by mouth every day Unknown 11/24/2015 81mg Tablets Valacyclovir HCL take 1 tablet by 180tabs A60.04 Favian Almeida, 2015 500mg mouth two times daily M.D. Tablets Nitrostat 1 every 5min as 6tabs Favian Almeida, 11/24/2015 0.4mg Tablets needed heart pain up M.D. Sub to 3 max then call 911 if unrelieved Lisinopril Take 1 Tablet By 90tabs I25.10 Favian Almeida, 11/24/2015 10mg Tablets Mouth Every Day M.D. Prolia subq: 60 mg as a Unknown 60mg/ml Solution single dose, once every 6 months History Medications Plavix take one tablet by mouth Unknown 03/20/2019 - 03/26/2019 75mg Tablets every day for heart Medications Administered in Office Medication SIG Qnty Indications Ordering Provider Date injection, kenalog, 10 mg Gal Villa D.O. 03/12/2017 Injection Immunizations CPT Code Status Date Vaccine Lot # 70150 Given 01/03/2018 Influenza Vaccine, Inactivated, Subunit, [id number] Adjuvanted, For Intrmusc 77199 Given 12/20/2016 Influenza Vaccine Split Virus Preservative Free Im [id number] Use (hi-dose) 91012 Given 01/08/2016 Influenza Vaccine Split Virus Preservative Free Im [id number] Use (hi-dose) 12048 Given 12/17/2014 Adacel or Boostrix, TDaP Vital Signs Date Vital Result Comment 05/29/2019 11:30am BP Systolic 130 mmHg BP Diastolic 80 mmHg Height 60 inches 5'0" Weight 190.00 lb BMI (Body Mass Index) 37.1 kg/m2 01/28/2019 12:05pm BP Systolic 132 mmHg BP Diastolic 80 mmHg Weight 198.00 lb Results Test Acquired Date Facility Test Result H/L Range Note Laboratory test 05/29/2019 In House Hemoglobin A1c 5.5 finding CBC Auto Diff 03/15/2019 [facility] White Blood 10.8 Normal 3.5-10.8 [phone] Count 10^3/uL Red Blood Count 3.74 10^6/uL Normal 3.70-4.87 Hemoglobin 11.7 g/dL Low 12.0-16.0 Hematocrit 36 % Normal 35-47 Mean Corpuscular Volume 97 fL Normal 80-97 Mean Corpuscular Hemoglobin 31 pg Normal 27-31 Mean Corpuscular HGB Conc 32 g/dL Normal 31-36 Red Cell Distribution Width 15 % Normal 10-15 Platelet Count 303 10^3/uL Normal 150-450 Mean Platelet Volume 7.4 fL Normal 7.4-10.4 Abs Neutrophils 8.4 10^3/uL High 1.5-7.7 Abs Lymphocytes 1.4 10^3/uL Normal 1.0-4.8 Abs Monocytes 0.7 10^3/uL Normal 0-0.8 Abs Eosinophils 0.2 10^3/uL Normal 0-0.6 Abs Basophils 0.1 10^3/uL Normal 0-0.2 Abs Nucleated RBC 0.0 10^3/uL Granulocyte % 78.3 % Lymphocyte % 12.7 % Monocyte % 6.5 % Eosinophil % 1.6 % Basophil % 0.9 % Nucleated Red Blood Cells % 0.0 Comp Metabolic Panel 03/15/2019 [facility] Sodium 132 mmol/L Low 135- 145 [phone] Potassium 4.3 mmol/L Normal 3.5-5.0 Chloride 99 mmol/L Low 101-111 Co2 Carbon Dioxide 24 mmol/L Normal 22-32 Anion Gap 9 mmol/L Normal 2-11 Glucose 117 mg/dL High 70-100 Blood Urea Nitrogen 66 mg/dL High 6-24 Creatinine 3.18 mg/dL High 0.51-0.95 BUN/Creatinine Ratio 20.8 High 8-20 Calcium 9.2 mg/dL Normal 8.6-10.3 Total Protein 6.8 g/dL Normal 6.4-8.9 Albumin 3.9 g/dL Normal 3.2-5.2 Globulin 2.9 g/dL Normal 2-4 Albumin/Globulin Ratio 1.3 Normal 1-3 Total Bilirubin 0.40 mg/dL Normal 0.2-1.0 Alkaline Phosphatase 73 U/L Normal 34-104 Alt 23 U/L Normal 7-52 Ast 19 U/L Normal 13-39 Egfr Non- 14.0 >60 Egfr 16.9 >60 1 Laboratory test 03/15/2019 [facility] Creatine 119 U/L Normal 10-223 finding [phone] Kinase(CK) Troponin-I (TnI) 0.04 ng/mL Critical high <0.03 2 TSH (Thyroid Stim Horm) 4.67 mcIU/mL Normal 0.34-5.60 Vitamin B12 711 pg/mL Normal 180-914 3 Urine Culture And 03/07/2019 [facility] Urine Culture SEE RESULT BELOW 4 Sensitivities [phone] Urinalysis Profile 03/07/2019 [facility] Urine Color Yellow [phone] Urine Appearance Cloudy Urine Specific [place] 1.009 Low 1.010-1.030 Urine pH 6.0 Normal 5-9 Urine Urobilinogen Negative Negative Urine Ketones Negative Negative Urine Protein Negative Negative Urine Leukocytes 1+ Abnormal Negative Urine Blood 2+ Abnormal Negative Urine Nitrite Negative Negative Urine Bilirubin Negative Negative Urine Glucose Negative Negative Urine White Blood Cell 3+(>20/hpf) Abnormal Absent Urine Red Blood Cell 2+(6-10/hpf) Abnormal Absent Urine Bacteria 1+ Abnormal Absent Urine Squamous Epithelial Cell Present Abnormal Absent Laboratory test 03/07/2019 [facility] Magnesium 2.5 mg/dL Normal 1.9- 2.7 finding [phone] TSH (Thyroid Stim Horm) 1.66 mcIU/mL Normal 0.34-5.60 Comp Metabolic Panel 03/07/2019 [facility] Sodium 136 mmol/L Normal 135-145 [phone] Potassium 4.2 mmol/L Normal 3.5-5.0 Chloride 102 mmol/L Normal 101-111 Co2 Carbon Dioxide 27 mmol/L Normal 22-32 Anion Gap 7 mmol/L Normal 2-11 Glucose 111 mg/dL High 70-100 Blood Urea Nitrogen 26 mg/dL High 6-24 Creatinine 1.22 mg/dL High 0.51-0.95 BUN/Creatinine Ratio 21.3 High 8-20 Calcium 9.2 mg/dL Normal 8.6-10.3 Total Protein 6.8 g/dL Normal 6.4-8.9 Albumin 4.0 g/dL Normal 3.2-5.2 Globulin 2.8 g/dL Normal 2-4 Albumin/Globulin Ratio 1.4 Normal 1-3 Total Bilirubin 0.80 mg/dL Normal 0.2-1.0 Alkaline Phosphatase 77 U/L Normal 34-104 Alt 12 U/L Normal 7-52 Ast 18 U/L Normal 13-39 Egfr Non- 42.3 >60 Egfr 51.2 >60 5 Laboratory test 03/07/2019 [facility] Lactic Acid 0.8 mmol/L Normal 0.5-2.0 6 finding [phone] Troponin-I (TnI) 0.01 ng/mL <0.03 7 CBC Auto Diff 03/07/2019 [facility] White Blood 9.2 10^3/uL Normal 3.5-10.8 [phone] Count Red Blood Count 3.90 10^6/uL Normal 3.70-4.87 Hemoglobin 12.5 g/dL Normal 12.0-16.0 Hematocrit 37 % Normal 35-47 Mean Corpuscular Volume 96 fL Normal 80-97 Mean Corpuscular Hemoglobin 32 pg High 27-31 Mean Corpuscular HGB Conc 34 g/dL Normal 31-36 Red Cell Distribution Width 14 % Normal 10-15 Platelet Count 249 10^3/uL Normal 150-450 Mean Platelet Volume 7.8 fL Normal 7.4-10.4 Abs Neutrophils 7.7 10^3/uL Normal 1.5-7.7 Abs Lymphocytes 0.8 10^3/uL Low 1.0-4.8 Abs Monocytes 0.5 10^3/uL Normal 0-0.8 Abs Eosinophils 0.1 10^3/uL Normal 0-0.6 Abs Basophils 0.0 10^3/uL Normal 0-0.2 Abs Nucleated RBC 0.0 10^3/uL Granulocyte % 84.0 % Lymphocyte % 8.9 % Monocyte % 5.7 % Eosinophil % 0.9 % Basophil % 0.5 % Nucleated Red Blood Cells % 0.0 Laboratory test 01/28/2019 In House Hemoglobin A1c 5.4 finding Laboratory test 01/15/2019 [facility] Hemoglobin A1c (Glyco <pending> finding [phone] HGB) 1 Because ethnic data is not always [...] 5 Kidney failure <15 (or dialysis) 2 Result TnIDx:0.04 Called to [id number] at: 18:30:22 by:[id number] Read back by: [id number] Troponin-I testing on Plasma Separator Tubes (PST) has a known false positive rate of 0.20-0.40%. All positive troponins reflex immediately to secondary confirmatory testing. Using the [employer] 800 Access Immunoassay systems, the 99th percentile upper reference limit was demonstrated to be < 0.03 ng/mL. 3 Normal Range 180 to 914 Indeterminate Range 145 to 180 Deficient Range <145 4 SEE RESULT BELOW Name: DEION AGUIRRE : [address]: Milena Parra MD Acct: [id number] Unit: [id number] AGE: 83 Location: [place] [address] Re03/08/19 SEX: F Status: ADM IN SPEC: [id number] HELLEN: 03/07/19-1518 [facility] [address]: Van Hopson MD REQ: [id number] RECD: 03/07/19 STATUS: WILL GREWAL DR: Chloe Baxter MD _ SOURCE: URINE SPDESC: ORDERED: Urine Culture Procedure Result Reported Site Urine Culture Final 03/09/19- 0847 ML Organism 1 ESCHERICHIA COLI Bosque Count >100,000 (Many) CFU/ML 1. ESCHERICHIA COLI M.I.C. RX --------- ------ Ampicillin 8 S Cefazolin <=4 S Cefepime <=1 S Ceftriaxone <=1 S Ciprofloxacin <=0.25 S Gentamicin <=1 S Levofloxacin <=0.12 S Meropenem <=0.25 S Nitrofurantoin <=16 S Tetracycline <=1 S Pipercillin/Tazobactam <=4 S Trimethoprim/Sulfamethoxazole <=20 S Amoxicillin/Clavulanic Acid 4 S Aztreonam <=1 S Contact the Microbiology Department for any additional antibiotic reporting. * [facility] - Main Lab . END OF REPORT DEPARTMENT OF PATHOLOGY, [address] [place] [address] Chase Moore M.D. Director [facility] # [id number] 5 Because ethnic data is not always readily [...] 15-29 5 Kidney failure <15 (or dialysis) 6 [facility] Severe Sepsis and Septic Shock Management Bundle Measure requires all lactic acids initially measuring >2.0 mmol/L be repeated. 7 Troponin-I testing on Plasma Separator Tubes (PST) has a known false positive rate of 0.20-0.40%. All positive troponins reflex immediately to secondary confirmatory testing. Using the [employer] Access Immunoassay systems, the 99th percentile upper reference limit was demonstrated to be < 0.03 ng/mL. Procedures Date Code Description Status 07/18/2018 [id number] Diabetic Foot Exam Completed 09/28/2017 [id number] Diabetic Retinal Eye Exam Completed 05/24/2017 [id number] Mammogram Completed 03/26/2014 [id number] Colonoscopy Completed Medical Devices Description No Information Available Encounters Type Date Location Provider Dx Diagnosis Office Visit 01/28/2019 Main Office Chloe Singh PA E11.22 Type 2 diabetes 11:45a mellitus w diabetic chronic kidney disease I10 Essential (primary) hypertension R06.02 Shortness of breath M15.0 Primary generalized (osteo)arthritis M48.00 Spinal stenosis, site unspecified Z66 Do not resuscitate Z04.89 Encounter for examination and observation for oth reasons Z71.89 Other specified counseling Assessments Date Code Description Provider 05/29/2019 E11.22 Type 2 diabetes mellitus with diabetic chronic Chloe Singh PA kidney disease 05/29/2019 B35.6 Tinea cruris Chloe Singh PA 02/05/2019 E11.22 Type 2 diabetes mellitus with diabetic chronic Chloe Singh PA kidney disease 02/05/2019 N18.3 Chronic kidney disease, stage 3 (moderate) HektorGeoffreyli, PA 02/05/2019 I12.9 Hypertensive chronic kidney disease with stage 1 Hektor, Chloe, PA through stage 4 chronic kidney disease, or unspecified chronic kidney disease 02/05/2019 G47.33 Obstructive sleep apnea (adult) (pediatric) HektorGeoffreyli , PA 02/05/2019 M48.00 Spinal stenosis, site unspecified HektorGeoffreyli, PA 01/28/2019 E11.22 Type 2 diabetes mellitus with diabetic chronic Chloe Singh, PA kidney disease 01/28/2019 I10 Essential (primary) hypertension HektorGeoffreyli, PA 01/28/2019 R06.02 Shortness of breath EsetorGeoffreyli, PA 01/28/2019 M15.0 Primary generalized (osteo)arthritis Geoffrey Singhli, PA 01/28/2019 M48.00 Spinal stenosis, site unspecified HektorGeoffreyli, PA 01/28/2019 Z66 Do not resuscitate Chloe Singh PA 01/28/2019 Z04.89 Encounter for examination and observation for Chloe Singh PA other specified reasons 01/28/2019 Z71.89 Other specified counseling Geoffrey Singhli, PA 12/31/2018 E11.22 Type 2 diabetes mellitus with diabetic chronic Chloe Singh PA kidney disease 12/31/2018 N18.3 Chronic kidney disease, stage 3 (moderate) HektorGeoffreyli, PA 12/31/2018 I12.9 Hypertensive chronic kidney disease with stage 1 HekChloe orellana, PA through stage 4 chronic kidney disease, or unspecified chronic kidney disease 12/31/2018 G47.33 Obstructive sleep apnea (adult) (pediatric) Chloe Singh PA 12/31/2018 M48.00 Spinal stenosis, site unspecified Chloe Singh PA Plan of Treatment 05/29/2019 - Chloe Singh PAE11.22 Type 2 diabetes mellitus with diabetic chronic kidney shnaqsaR42.6 Tinea crurisNew Medication:Nystop [id number] Unit/GM - Functional Status Description No Information Available Mental Status Description No Information Available Referrals Refer to Reason for Referral Status Appt Date Sleep Clinic needs new sleep study, has not had CPAP in years Closed 2019 Consult and Treat [facility] [address], [address] [place] [id number] [phone]
--- OUTSIDE RECORDS SUMMARY | 2019-05-30 16:50 | XMS REPORT ---
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 [id number] 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 2018-03 Celia kidney kidney 2- Emmanuel disease, disease, [id number] stage 3 stage 3 (moderate) (moderate) Spinal Spinal Diagnosis Active 2018-03 Celia stenosis, stenosis, - Emmanuel cervical cervical [id number] region region 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 Obstructive Obstructive Diagnosis Active 2018-03 Celia sleep apnea sleep apnea 2-26 Emmanuel (adult) (adult) [id number] (pediatric) (pediatric) Morbid Morbid Diagnosis Active Celia (severe) (severe) Emmanuel obesity due obesity due [id number] to excess to excess calories calories Other Other Diagnosis Active Celia insomnia insomnia Emmanuel [id number] Unspecified Unspecified Diagnosis Active Celia glaucoma glaucoma Emmanuel [id number] Other iron 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 [id number] Vitamin Vitamin Diagnosis Active Celia deficiency, deficiency, Emmanuel unspecified unspecified [id number] Hyperlipide Hyperlipide Diagnosis Active Celia prashanth, prashanth, Emmanuel unspecified unspecified [id number] Gastro-esop Gastro-esop Diagnosis Active Celia hageal hageal Emmanuel reflux reflux [id number] disease disease without without esophagitis esophagitis Slow Slow Diagnosis Active Celia transit transit Emmanuel constipatio constipatio [id number] n n Pain in Pain in Diagnosis Active Celia left left Emmanuel shoulder shoulder [id number] Personal Personal Diagnosis Active Celia history of history of Emmanuel transient transient [id number] ischemic ischemic attack attack (TIA), and (TIA), and cerebral cerebral infarction infarction without without residual residual deficits deficits Personal Personal Diagnosis Active Celia history of history of Emmanuel urinary urinary [id number] (tract) (tract) infections infections jail jail Diagnosis Active Celia (current) (current) Emmanuel use of use of [id number] opiate opiate analgesic analgesic 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 Diagnosis Active Celia (current) (current) Emmanuel use of use of [id number] antithrombo antithrombo tics/antipl tics/antipl atelets atelets Other long Other long Diagnosis Active Celia term term Emmanuel (current) (current) [id number] drug drug therapy therapy Pain frequent Pain Mgmt Active 2020-0 Xochitl pain 2-15 (Guerda) 09:00: Kamlesh [id number] Cardio edema Cardiovasc Active 2020-0 Xochitl ular 2-15 (Guerda) 09:00: Kamlesh [id number] Cardio knowledge/s Cardiovasc Active 2020-0 Xochitl kill ular 2-15 (Guerda) deficit: pt 09:00: Kamlesh [id number] Respiratory dyspnea Respirator Active 2020-0 Xochitl present y 2-15 (Guerda) 09:00: Kamlesh [id number] Endo/Patrice anti-coagul Endo/Patrice Active 2020-0 Xochitl ation 2-15 (Guerda) therapy 09:00: Kamlesh [id number] Sensory impaired Sensory Active 2020-0 Xochitl hearing 2-15 (Guerda) 09:00: Kamlesh [id number] Integument skin Integument Active 2020-0 Xochitl integrity 2-15 (Guerda) risk 09:00: Kamlesh [id number] Nutrition nutritional Nutrition Active 2020-0 Xochitl restriction 2-15 (Guerda) s 09:00: Kamlesh [id number] Elimination urinary Eliminatio Active 2020-0 Xochitl incontinenc n 2-15 (Guerda) e 09:00: Kamlesh [id number] Neuro depressive Neuro/Emot Active 2020-0 Xochitl feelings ion 2-15 (Guerda) present 09:00: Whitlock [id number] Neuro impaired Neuro/Emot Active 2020-0 Xochitl decision-ma ion 2-15 (Guerda) bryanna 09:00: Whitlock [id number] Neuro memory Neuro/Emot Active 2020-0 Xochitl deficit ion 2-15 (Guerda) needing 09:00: Kamlesh supervision [id number] Activity ADL Activity Active 2020-0 Xochitl assistance 2-15 (Guerda) required 09:00: Whitlock [id number] Activity self-care Activity Active 2020-0 Xochitl deficit 2-15 (Guerda) 09:00: Kamlesh [id number] Safety fall risk Safety Active 2020-0 Xochitl factor 2-15 (Guerda) present 09:00: Kamlesh [id number] Safety risk for Safety Active 2020-0 Xochitl hospitaliza 2-15 (Guerda) tion 09:00: Kamlesh [id number] Safety can be left Safety Active 2020-0 Xochitl alone for 2-15 (Guedra) only short 09:00: Kamlesh periods [id number] Medication oral med Meds Active 2020-0 Xochitl assistance 2-15 (Guerda) required 09:00: Kamlesh [id number] Medication potential Meds Active 2020-0 Xochitl clinically 2-15 (Guerda) significant 09:00: Kamlesh medication [id number] issue Musculoskel transfer Musculoske Active 2020-0 Xochitl etal assistance letal 2-15 (Guerda) required 09:00: Kamlesh [id number] Musculoskel requires Musculoske Active 2020-0 Xochitl etal human letal 2-15 (Guerda) assist to 09:00: Kamlesh leave home 00 [id number] Pain knowledge/s Pain Mgmt Active 2019- Tho kill 2-17 John deficit: pt 12:03: [id number] ROM ROM PT: ROM Active Tho deficit: UE 2-17 John 12:03: [id number] 00 Strength/To strength PT: Active 0 Tho ne/Motor deficit: LE Strength 2-17 John Control 12:03: [id number] Strength/To knowledge/s PT: Active 2019-0 Tho ne/Motor kill Strength 2-17 John Control deficit LE: 12:03: [id number] pt 00 Bed mobility/tr PT/OT: Bed Active 2020-0 Tho Mobility/Tr ansfer Mobility/T 2-17 John arteaga device ransfer 12:03: [id number] present 00 Bed transfer PT/OT: Bed Active 2020-0 Tho Mobility/Tr deficit: Mobility/T 2-17 John arteaga sit/stand ransfer 12:03: [id number] 00 Bed transfer PT/OT: Bed Active 2020-0 Tho Mobility/Tr deficit: Mobility/T 2-17 Kobkrystin arteaga standing ransfer 12:03: [id number] pivot 00 Bed transfer PT/OT: Bed Active 2020-0 Tho Mobility/Tr deficit: Mobility/T 2-17 Kobkrystin [facility] 12:[facility]: [id number] ode 00 Bed transfer PT/OT: Bed Active 2020-0 Tho Mobility/Tr deficit: Mobility/T 2-17 [facility] 12[facility]03: [id number] 00 Bed transfer PT/OT: Bed Active 2020-0 Tho Mobility/Tr deficit: Mobility/T 2-17 John arteaga vehicle ransfer 12:03: [id number] 00 Bed knowledge/s PT/OT: Bed Active 2020-0 Tho Mobility/Tr kill Mobility/T 2-17 John arteaga deficit: pt ransfer 12:03: [id number] 00 Bed bed PT/OT: Bed Active 2020-0 Tho Mobility/Tr mobility Mobility/T 2-17 John arteaga deficit ransfer 12:03: [id number] 00 Balance/End balance/academic support coordinator PT/OT: Active 2020-0 Tho urance rdination Balance/En 2-17 John deficit durance 12:03: [id number] 00 OT: Self self-care OT: Active 2020-0 Tho Care deficit Self-Care 2-17 John 12:03: [id number] 00 OT: Self knowledge/s OT: Active 2020-0 Tho Care kill Self-Care 2-17 John deficit: pt 12:03: [id number] 00 Gait/Locomo gait PT/OT: Active 2020-0 Tho tion assistive Gait/Locom 2-17 Kobziewicz problems device otion 12:03: [id number] present 00 Gait/Locomo knowledge/s PT/OT: Active Tho tion kill Gait/Locom 2-17 Kobziewicz problems deficit: pt otion 12:03: [id number] 00 Gait/Locomo gait PT/OT: Active Tho tion deficit Gait/Locom 2-17 Kobziewicz problems otion 12:03: [id number] 00 Allergies, Adverse Reactions, Alerts Allergy Name Allergy Status Severity Reaction(s) Onset Inactive Treating Comments Type Date Date Clinician Penicillins Allergen Active Unknown Reaction Sonia Group Unknown 2-15 Kailash [id number] cat dog Unknown Active Unknown Reaction 0 Sonia dander, Unknown 2-15 Kailash perfume,tar, [id number] cigarettes Medications Ordered Filled Start Stop Current [...] Observation Time Observation Value Comments SYSTOLIC mm[Hg] 2019-05-19 18:10:33 128 mm[Hg] mm[Hg] Method: Sit SYSTOLIC mm[Hg] 2019-05-12 18:10:26 130 mm[Hg] mm[Hg] Method: Stand DIASTOLIC mm[Hg] 2019-05-19 18:10:33 74 mm[Hg] mm[Hg] Method: Sit DIASTOLIC mm[Hg] 2019-05-12 18:10:26 80 mm[Hg] mm[Hg] Method: Stand PULSE 2019-05-19 18:10:33 64 /min /min RESP RATE 2019-05-13 18:10:27 18 /min /min TEMP 2019-05-13 18:10:27 98.9 [degF] Procedures This patient has no known procedures. Results This patient has no known results.
--- OUTSIDE RECORDS SUMMARY | 2019-05-30 16:50 | XMS REPORT ---
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 [id number] 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 2018-03 Celia kidney kidney 2- Emmanuel disease, disease, [id number] stage 3 stage 3 (moderate) (moderate) Spinal Spinal Diagnosis Active 2018-03 Celia stenosis, stenosis, - Emmanuel cervical cervical [id number] region region 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 [id number] [place] 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 Obstructive Obstructive Diagnosis Active 2018-03 Celia sleep apnea sleep apnea 2-26 Emmanuel (adult) (adult) [id number] (pediatric) (pediatric) Morbid Morbid Diagnosis Active Celia (severe) (severe) Emmanuel obesity due obesity due [id number] to excess to excess calories calories Other Other Diagnosis Active Celia insomnia insomnia Emmanuel [id number] Unspecified Unspecified Diagnosis Active Celia glaucoma glaucoma Emmanuel [id number] Other iron 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 [id number] Vitamin Vitamin Diagnosis Active Celia deficiency, deficiency, Emmanuel unspecified unspecified [id number] Hyperlipide Hyperlipide Diagnosis Active Celia prashanth, prashanth, Emmanuel unspecified unspecified [id number] Gastro-esop Gastro-esop Diagnosis Active Celia hageal hageal Emmanuel reflux reflux [id number] disease disease without without esophagitis esophagitis Slow Slow Diagnosis Active Celia transit transit Emmanuel constipatio constipatio [id number] n n Pain in Pain in Diagnosis Active Celia left left Emmanuel shoulder shoulder [id number] Personal Personal Diagnosis Active Celia history of history of Emmanuel transient transient [id number] ischemic ischemic attack attack (TIA), and (TIA), and cerebral cerebral infarction infarction without without residual residual deficits deficits Personal Personal Diagnosis Active Celia history of history of Emmanuel urinary urinary [id number] (tract) (tract) infections infections 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 Diagnosis Active Celia (current) (current) Emmanuel use of use of [id number] opiate opiate analgesic analgesic 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 Diagnosis Active Celia (current) (current) Emmanuel use of use of [id number] antithrombo antithrombo tics/antipl tics/antipl atelets atelets Other long Other long Diagnosis Active Celia term term Emmanuel (current) (current) [id number] drug drug therapy therapy Pain frequent Pain Mgmt Active 2020-0 Xochitl pain 2-15 (Guerda) 09:00: Kamlesh [id number] Cardio edema Cardiovasc Active 2020-0 Xochitl ular 2-15 (Guerda) 09:00: Kamlesh [id number] Cardio knowledge/s Cardiovasc Active 2020-0 Xochitl kill ular 2-15 (Guerda) deficit: pt 09:00: Kamlesh [id number] Respiratory dyspnea Respirator Active 2020-0 Xochitl present y 2-15 (Guerda) 09:00: Kamlesh [id number] Endo/Patrice anti-coagul Endo/Patrice Active 2020-0 Xochitl ation 2-15 (Guerda) therapy 09:00: Kamlesh [id number] Sensory impaired Sensory Active 2020-0 Xochitl hearing 2-15 (Guerda) 09:00: Kamlesh [id number] Integument skin Integument Active 2020-0 Xochitl integrity 2-15 (Guerda) risk 09:00: Kamlesh [id number] Nutrition nutritional Nutrition Active 2020-0 Xochitl restriction 2-15 (Guerda) s 09:00: Kamlesh [id number] Elimination urinary Eliminatio Active 2020-0 Xochitl incontinenc n 2-15 (Guerda) e 09:00: Kamlesh [id number] Neuro depressive Neuro/Emot Active 2020-0 Xochitl feelings ion 2-15 (Guerda) present 09:00: Whitlock [id number] Neuro impaired Neuro/Emot Active 2020-0 Xochitl decision-ma ion 2-15 (Guerda) bryanna 09:00: Whitlock [id number] Neuro memory Neuro/Emot Active 2020-0 Xochitl deficit ion 2-15 (Guerda) needing 09:00: Kamlesh supervision [id number] Activity ADL Activity Active 2020-0 Xochitl assistance 2-15 (Guerda) required 09:00: Whitlock [id number] Activity self-care Activity Active 2020-0 Xochitl deficit 2-15 (Guerda) 09:00: Kamlesh [id number] Safety fall risk Safety Active 2020-0 Xochitl factor 2-15 (Guerda) present 09:00: Kamlesh [id number] Safety risk for Safety Active 2020-0 Xochitl hospitaliza 2-15 (Guerda) tion 09:00: Kamlesh [id number] Safety can be left Safety Active 2020-0 Xochitl alone for 2-15 (Guerda) only short 09:00: Kamlesh periods [id number] Medication oral med Meds Active 2020-0 Xochitl assistance 2-15 (Guerda) required 09:00: Kamlesh [id number] Medication potential Meds Active 2020-0 Xochitl clinically 2-15 (Guerda) significant 09:00: Kamlesh medication [id number] issue Musculoskel transfer Musculoske Active 2020-0 Xochitl etal assistance letal 2-15 (Guerda) required 09:00: Kamlesh [id number] Musculoskel requires Musculoske Active 2020-0 Xochitl etal human letal 2-15 (Guerda) assist to 09:00: Kamlesh leave home 00 [id number] Pain knowledge/s Pain Mgmt Active 2019- Tho kill 2-17 John deficit: pt 12:03: [id number] 00 ROM ROM PT: ROM Active Tho deficit: UE 2-17 John 12:03: [id number] 00 Strength/To strength PT: Active 0 Tho ne/Motor deficit: LE Strength 2-17 John Control 12:03: [id number] 00 Strength/To knowledge/s PT: Active 2019-0 Tho ne/Motor kill Strength 2-17 John Control deficit LE: 12:03: [id number] pt 00 Bed mobility/tr PT/OT: Bed Active 2020-0 Tho Mobility/Tr ansfer Mobility/T 2-17 John arteaga device ransfer 12:03: [id number] present 00 Bed transfer PT/OT: Bed Active 2020-0 Tho Mobility/Tr deficit: Mobility/T 2-17 John arteaga sit/stand ransfer 12:03: [id number] 00 Bed transfer PT/OT: Bed Active 2020-0 Tho Mobility/Tr deficit: Mobility/T 2-17 Kobkrystin arteaga standing ransfer 12:03: [id number] pivot 00 Bed transfer PT/OT: Bed Active 2020-0 Tho Mobility/Tr deficit: Mobility/T 2-17 Kobkrystin [facility] 12:[facility]: [id number] ode 00 Bed transfer PT/OT: Bed Active 2020-0 Tho Mobility/Tr deficit: Mobility/T 2-17 John arteaga shower[facility] 12:03: [id number] 00 Bed transfer PT/OT: Bed Active 2020-0 Tho Mobility/Tr deficit: Mobility/T 2-17 John arteaga vehicle ransfer 12:03: [id number] 00 Bed knowledge/s PT/OT: Bed Active 2020-0 Tho Mobility/Tr kill Mobility/T 2-17 John arteaga deficit: pt ransfer 12:03: [id number] 00 Bed bed PT/OT: Bed Active 2020-0 Tho Mobility/Tr mobility Mobility/T 2-17 John arteaga deficit ransfer 12:03: [id number] 00 Balance/End balance/hogshead cooper PT/OT: Active 2020-0 Tho urance rdination Balance/En 2-17 John deficit durance 12:03: [id number] 00 OT: Self self-care OT: Active 2020-0 Tho Care deficit Self-Care 2-17 John 12:03: [id number] 00 OT: Self knowledge/s OT: Active 2020-0 Tho Care kill Self-Care 2-17 John deficit: pt 12:03: [id number] 00 Gait/Locomo gait PT/OT: Active 2020-0 Tho tion assistive Gait/Locom 2-17 Kobziewicz problems device otion 12:03: [id number] present 00 Gait/Locomo knowledge/s PT/OT: Active Tho tion kill Gait/Locom 2-17 Kobziewicz problems deficit: pt otion 12:03: [id number] 00 Gait/Locomo gait PT/OT: Active Tho tion deficit Gait/Locom 2-17 Kobziewicz problems otion 12:03: [id number] 00 Allergies, Adverse Reactions, Alerts Allergy Name Allergy Status Severity Reaction(s) Onset Inactive Treating Comments Type Date Date Clinician Penicillins Allergen Active Unknown Reaction Sonia Group Unknown 2-15 Kailash [id number] cat dog Unknown Active Unknown Reaction 0 Sonia dander, Unknown 2-15 Kailash perfume,tar, [id number] cigarettes Medications Ordered Filled Start Stop Current [...]
--- OUTSIDE RECORDS SUMMARY | 2019-05-30 16:50 | XMS REPORT ---
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 Celia hy, lumbar hy, lumbar 03-26 [place] region region [id number] Spinal Spinal Diagnosis Active Celia stenosis, stenosis, 03-26 [place] site site [id number] unspecified unspecified Hypertensiv Hypertensiv Diagnosis Active Celia e chronic e chronic 03-26 Emmanuel kidney kidney [id number] disease disease with stage with stage 1 through 1 through stage 4 stage 4 chronic chronic kidney kidney disease, or disease, or unspecified unspecified chronic chronic kidney kidney disease disease 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 Celia kidney kidney -10 Emmanuel disease, disease, [id number] stage 3 stage 3 (moderate) (moderate) 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 Obstructive Obstructive Diagnosis Active Celia sleep apnea sleep apnea Emmanuel (adult) (adult) [id number] (pediatric) (pediatric) Morbid Morbid Diagnosis Active Celia (severe) (severe) Emmanuel obesity due obesity due [id number] to excess to excess calories calories Other Other Diagnosis Active Celia specified specified Emmanuel disorders disorders [id number] of bone of bone density and density and structure, structure, unspecified unspecified site site Personal Personal Diagnosis Active Celia history of history of Emmanuel other other [id number] venous venous thrombosis thrombosis and and embolism embolism Presence of Presence of Diagnosis Active Celia artificial artificial Emmanuel knee joint, knee joint, [id number] bilateral bilateral Pain frequent Pain Mgmt Resolve 2018-2018-12-04 Zhanna pain d 08-06 12:29:00 [place] 14:58: [id number] 00 Cardio edema Cardiovasc Resolve 2018-2019-03-04 Zhanna ular d 08-06 12:50:00 [place] 14:58: [id number] 00 Cardio knowledge/s Cardiovasc Resolve 2019-03-04 Zhanna kill ular d 08-06 12:50:00 [place] deficit: pt 14:58: [id number] 00 Elimination urinary Eliminatio Resolve 2019-03-04 Zhanna incontinenc n d 08-06 12:50:00 [place] e 14:58: [id number] 00 Neuro confusion Neuro/Emot Active Zhanna present ion 08-06 [place] 14:58: [id number] 00 Neuro anxiety Neuro/Emot Active Zhanna present ion 08-06 [place] 14:58: [id number] 00 Activity ADL Activity Active Zhanna assistance 08-06 [place] required 14:58: [id number] 00 Activity self-care Activity Active Zhanna deficit 08-06 [place] 14:58: [id number] 00 Safety can be left Safety Active Zhanna alone for 08-06 [place] only short 14:58: [id number] periods 00 Safety fall risk Safety Resolve 2018-10-30 Zhanna factor d 08-06 14:00:00 [place] present 14:58: [id number] 00 Safety risk for Safety Resolve 2018-10-30 Zhanna hospitaliza d 08-06 14:00:00 [place] tion 14:58: [id number] 00 Medication oral med Meds Resolve 2018-12-04 Zhanna assistance d 08-06 12:29:00 [place] required 14:58: [id number] 00 Medication knowledge/s Meds Resolve 2018-12-04 Zhanna kill d 5-14 12:29:00 [place] deficit: pt 14:58: [id number] 00 Medication potential Meds Resolve 2018-12-04 Carmela clinically d -28 12:29:00 [place] significant 11:00: [id number] medication 00 issue Elimination constipatio Eliminatio Resolve 2019-03-04 Zhanna gilberto n d 6-11 12:50:00 [place] 11:15: [id number] 00 Endo/Patrice anti-coagul Endo/Patrice Resolve 2018-10-30 Zhanna ation d - 14:00:00 Parminder therapy 09:14: [id number] 00 Musculoskel requires Musculoske Resolve 2019-01-22 Zhanna etal human letal d 10-02 09:00:00 Parminder assist to 09:14: [id number] leave home 00 Safety risk for Safety Active Carmela hospitaliza 11-12 [place] tion 09:30: [id number] 00 Integument skin Integument Active Celia integrity 9-11 Emmanuel risk 12:29: [id number] 00 Neuro impaired Neuro/Emot Active Celia decision-ma ion - [place] gould 12:29: [id number] 00 Safety fall risk Safety Active Celia factor -11 Emmanuel present 12:29: [id number] 00 Medication knowledge/s Meds Active 2018-03 Carmela kill 0- [place] deficit: pt 11:20: [id number] 00 Pain frequent Pain Mgmt Active 2018-03 Celia pain 04-01 [place] 13:22: [id number] 00 Musculoskel requires Musculoske Resolve 2018-032019-03-04 Celia etal human letal d 04-01 12:50:00 Emmanuel assist to 13:22: [id number] leave home 00 Medication potential Meds Active 2018-03 Camrela clinically 04-20 [place] significant 11:00: [id number] medication 00 issue Respiratory lung sounds Respirator Active 2018-03 Celia deficit y 2-13 [place] 10:58: [id number] 00 Safety cannot be Safety Active 2018-03 Celia left alone 05-08 [place] 10:58: [id number] 00 Allergies, Adverse Reactions, Alerts Allergy Name Allergy Status Severity Reaction(s) Onset Inactive Treating Comments Type Date Date Clinician Penicillins Allergen Active Unknown Reaction Zhanna Group Unknown 06-19 Parminder [id number] cephalexin Base Active Unknown Reaction Zhanna Ingredient Unknown 06-19 Parminder [id number] Medications Ordered Filled Start Stop Current Ordering Indication Dosage Frequency Signature Comments Components Medication Medication Date Date Medication? Clinician (SIG) Name Name multivitami multivitami 2018- No Sopchak Unknown Unknown n with n with 08-07 DO,Gal minerals minerals tablet tablet valACYclovi valACYclovi 2018- No [place]ak Unknown Unknown r 500 mg r 500 mg 08-07 DO,Gal tablet tablet cod liver cod liver 2018- No [place]ak Unknown Unknown oil capsule oil capsule 08-07 DO,Gal gabapentin gabapentin 2018- No [place]ak Unknown Unknown 100 mg 100 mg 08-07 DO,Gal capsule capsule ferrous ferrous 2018- No [place]ak Unknown Unknown sulfate 325 sulfate 325 08-07 1030 DO,Gal mg (65 mg mg (65 mg iron) iron) tablet tablet senna 8.6 senna 8.6 2018- No S[place]chak Unknown Unknown mg tablet mg tablet 08-07 06-11 DO,Gal polyethylen polyethylen 2018- No [place]ak Unknown Unknown e glycol e glycol 08-07 DO,Gal 3350 17 3350 17 gram/dose gram/dose oral powder oral powder potassium potassium 2018- No S[place]chak Unknown Unknown chloride ER chloride ER 08-07 DO,Gal 10 mEq 10 mEq tablet,exte tablet,exte nded nded release release atorvastati atorvastati 2018- No [place]ak Unknown Unknown n 20 mg n 20 mg 08-07 DO,Gal tablet tablet dilTIAZem dilTIAZem 2018- No [place] Unknown Unknown CD 240 mg CD 240 mg 08-07 DO,Gal capsule,ext capsule,ext ended ended release 24 release 24 hr hr Aspirin Low Aspirin Low 2018- No S[place]chak Unknown Unknown Dose 81 mg Dose 81 mg 08-07 DO,Gal tablet,rik tablet,rik yed release yed release nitroglycer nitroglycer 2018- No [place] Unknown Unknown in 0.4 mg in 0.4 mg 08-07 DO,Gal sublingual sublingual tablet tablet omeprazole omeprazole 2018- No [place]ak Unknown Unknown 20 mg 20 mg 08-09 DO,Gal capsule,del capsule,del ayed ayed release release oxyCODONE-a oxyCODONE-a 2018- No [place] Unknown Unknown cetaminophe cetaminophe 08-07 DO,Gal n 5 mg-325 n 5 mg-325 mg tablet mg tablet baclofen 10 baclofen 10 2018- No [place] Unknown Unknown mg tablet mg tablet 08-07 DO,Gal Calcium Calcium 2018- No S[place]chak Unknown Unknown 600-D3 Plus 600-D3 Plus 08-07- DO,Gal (mag-zinc) (mag-zinc) 600 mg 600 mg calcium-800 calcium-800 unit-50 mg unit-50 mg tablet tablet triamcinolo triamcinolo 2018- No [place]ak Unknown Unknown ne ne 08-07 DO,Gal acetonide acetonide 0.025 % 0.025 % lotion lotion lisinopril lisinopril 2018- No [place] Unknown Unknown 10 mg 10 mg 08-07 DO,Gal tablet tablet loratadine loratadine 2018- No [place] Unknown Unknown 10 mg 10 mg 08-07 DO,Gal tablet tablet Travatan Z Travatan Z 2018- No [place]ak Unknown Unknown 0.004 % eye 0.004 % eye 08-07 06-13 DO,Gal drops drops hydrALAZINE hydrALAZINE 2018- No [place] Unknown Unknown 10 mg 10 mg 08-07 DO,Gal tablet tablet Milk of Milk of 2018- No [place]ak Unknown Unknown Magnesia Magnesia 08-07 DO,Gal 400 mg/5 mL 400 mg/5 mL oral oral suspension suspension Tylenol 8 Tylenol 8 2018- No S[place]ak Unknown Unknown Hour 650 mg Hour 650 mg 08-07 DO,Gal tablet,exte tablet,exte nded nded release release Lasix 20 mg Lasix 20 mg 2018- No [place] Unknown Unknown tablet tablet 08-07 DO,Gal cranberry cranberry 2018- No [place] Unknown Unknown extract 425 extract 425 08-07 DO,Gal mg capsule mg capsule Prolia 60 Prolia 60 2018- No [place] Unknown Unknown mg/mL mg/mL 08-07 DO,Gal subcutaneou subcutaneou s syringe s syringe Calcium Calcium 2018- No S[place]chak Unknown Unknown 600mg 600mg 08-20 DO,Gal DULoxetine DULoxetine 2018- No [place]ak Unknown Unknown 30 mg 30 mg 09-03 DO,Gal capsule,del capsule,del ayed ayed release release latanoprost latanoprost 2018- No Arleo Unknown Unknown 0.005 % eye 0.005 % eye 09-05 Andres MARCELINO drops drops senna 8.6 senna 8.6 2018- No Sopchak Unknown Unknown mg tablet mg tablet 09-03 DO,Gal docusate docusate 2018- No S[place]ak Unknown Unknown sodium 100 sodium 100 09-03 DO,Gal mg capsule mg capsule bisacodyl 5 bisacodyl 5 2018- No [place] Unknown Unknown mg mg 11-12 DO,Gal tablet,rik tablet,rik yed release yed release DULoxetine DULoxetine 2018- No [place]ak Unknown Unknown 30 mg 30 mg 11-26 DO,Gal capsule,del capsule,del ayed ayed release release ferrous ferrous 2018-03- No S[place]chak Unknown Unknown sulfate 325 sulfate 325 03-11 DO,Gal mg (65 mg mg (65 mg iron) iron) tablet tablet omeprazole omeprazole 2018-03- Yes Sopchak Unknown Unknown 20 mg 20 mg 05-08 DO,Gal capsule,del capsule,del ayed ayed release release Vital Signs Vital Name Observation Time Observation Value Comments SYSTOLIC mm[Hg] 2019-03-07 18:09:20 174 mm[Hg] mm[Hg] Method: Sit SYSTOLIC mm[Hg] 2018-10-02 18:06:44 140 mm[Hg] mm[Hg] Method: Stand DIASTOLIC mm[Hg] 2019-03-07 18:09:20 108 mm[Hg] mm[Hg] Method: Sit DIASTOLIC mm[Hg] 2018-10-02 18:06:44 80 mm[Hg] mm[Hg] Method: Stand PULSE 2019-03-07 18:09:20 50 /min /min RESP RATE 2019-03-07 18:09:20 18 /min /min TEMP 2019-03-07 18:09:20 98.1 [degF] Procedures This patient has no known procedures. Results This patient has no known results.
--- OUTSIDE RECORDS SUMMARY | 2019-05-30 16:50 | XMS REPORT ---
:1935 Author Organization [facility] Care Team Providers Name Role Phone Unavailable Unavailable Unavailable Problems Condition Condition Condition Status Onset Resolution Last Treating Comments Name Details Category Date Date Treatment Clinician Date Hypertensiv Hypertensiv Diagnosis Active 2018-03 Celia e chronic e chronic 2- Emmanuel kidney kidney [id number] disease disease with stage with stage 1 through 1 through stage 4 stage 4 chronic chronic kidney kidney disease, or disease, or unspecified unspecified chronic chronic kidney kidney disease disease 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 [id number] 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 2018-03 Celia kidney kidney 2- Emmanuel disease, disease, [id number] stage 3 stage 3 (moderate) (moderate) Spinal Spinal Diagnosis Active 2018-03 Celia stenosis, stenosis, - Emmanuel cervical cervical [id number] region region 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 [id number] [place] 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 Obstructive Obstructive Diagnosis Active 2018-03 Celia sleep apnea sleep apnea 2-26 Emmanuel (adult) (adult) [id number] (pediatric) (pediatric) Morbid Morbid Diagnosis Active Celia (severe) (severe) Emmanuel obesity due obesity due [id number] to excess to excess calories calories Other Other Diagnosis Active Celia insomnia insomnia Emmanuel [id number] Unspecified Unspecified Diagnosis Active Celia glaucoma glaucoma Emmanuel [id number] Other iron 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 [id number] Vitamin Vitamin Diagnosis Active Celia deficiency, deficiency, Emmanuel unspecified unspecified [id number] Hyperlipide Hyperlipide Diagnosis Active Celia prashanth, prashanth, Emmanuel unspecified unspecified [id number] Gastro-esop Gastro-esop Diagnosis Active Celia hageal hageal Emmanuel reflux reflux [id number] disease disease without without esophagitis esophagitis Slow Slow Diagnosis Active Celia transit transit Emmanuel constipatio constipatio [id number] n n Pain in Pain in Diagnosis Active Celia left left Emmanuel shoulder shoulder [id number] Personal Personal Diagnosis Active Celia history of history of Emmanuel transient transient [id number] ischemic ischemic attack attack (TIA), and (TIA), and cerebral cerebral infarction infarction without without residual residual deficits deficits Personal Personal Diagnosis Active Celia history of history of Emmanuel urinary urinary [id number] (tract) (tract) infections infections 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 Active Celia (current) (current) Emmanuel use of use of [id number] opiate opiate analgesic analgesic 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 Active Celia (current) (current) Emmanuel use of use of [id number] antithrombo antithrombo tics/antipl tics/antipl atelets atelets Other long Other long Diagnosis Active Celia term term Emmanuel (current) (current) [id number] drug drug therapy therapy Pain frequent Pain Mgmt Active 2020-0 Xochitl pain 2-15 (Guerda) 09:00: Kamlesh [id number] Cardio edema Cardiovasc Active 2020-0 Xochitl ular 2-15 (Guerda) 09:00: Kamlesh [id number] Cardio knowledge/s Cardiovasc Active 2020-0 Xochitl kill ular 2-15 (Guerda) deficit: pt 09:00: Kamlesh [id number] Respiratory dyspnea Respirator Active 2020-0 Xochitl present y 2-15 (Guerda) 09:00: Kamlesh [id number] Endo/Patrice anti-coagul Endo/Patrice Resolve 0 2019-05-27 Xochitl ation d 2-15 13:30:00 (Guerda) therapy 09:00: Kamlesh [id number] Sensory impaired Sensory Active 2020-0 Xochitl hearing 2-15 (Guerda) 09:00: Kamlesh [id number] Integument skin Integument Active 2020-0 Xochitl integrity 2-15 (Guerda) risk 09:00: Whitlock [id number] Nutrition nutritional Nutrition Resolve 0 2019-05-27 Xochitl restriction d 2-15 13:30:00 (Guerda) s 09:00: Kamlesh [id number] Elimination urinary Eliminatio Active 2020-0 Xochitl incontinenc n 2-15 (Guerda) e 09:00: Whitlock [id number] Neuro depressive Neuro/Emot Active 2020-0 Xochitl feelings ion 2-15 (Guerda) present 09:00: Whitlock [id number] Neuro impaired Neuro/Emot Active 2020-0 Xochitl decision-ma ion 2-15 (Guerda) bryanna 09:00: Whitlock [id number] Neuro memory Neuro/Emot Active 2020-0 Xochitl deficit ion 2-15 (Guerda) needing 09:00: Whitlock supervision [id number] Activity ADL Activity Active 2020-0 Xochitl assistance 2-15 (Guerda) required 09:00: Whitlock [id number] Activity self-care Activity Active 2020-0 Xochitl deficit 2-15 (Guerda) 09:00: Whitlock [id number] Safety fall risk Safety Active 2020-0 Xochitl factor 2-15 (Guerda) present 09:00: Whitlock [id number] Safety risk for Safety Active 2020-0 Xochitl hospitaliza 2-15 (Guerda) tion 09:00: Whitlock [id number] Safety can be left Safety Active 2020-0 Xochitl alone for 2-15 (Guerda) only short 09:00: Whitlock periods [id number] Medication oral med Meds Active 2020-0 Xochitl assistance 2-15 (Geurda) required 09:00: Whitlock [id number] Medication potential Meds Active 2020-0 Xochitl clinically 2-15 (Guerda) significant 09:00: Whitlock medication [id number] issue Musculoskel transfer Musculoske Active 2020-0 Xochitl etal assistance letal 2-15 (Guerda) required 09:00: Whitlock [id number] Musculoskel requires Musculoske Active 2020-0 Xochitl etal human letal 2-15 (Guerda) assist to 09:00: Whitlock leave home 00 [id number] Pain knowledge/s Pain Mgmt Active Tho jacob 2-17 John deficit: pt 12:03: [id number] ROM ROM PT: ROM Active Tho deficit: UE 2-17 John 12:03: [id number] 00 Strength/To strength PT: Active Tho ne/Motor deficit: LE Strength 2-17 John Control 12:03: [id number] 00 Strength/To knowledge/s PT: Active 2020-0 Tho ne/Motor kill Strength 2-17 John Control deficit LE: 12:03: [id number] pt 00 Bed mobility/tr PT/OT: Bed Active 2020-0 Tho Mobility/Tr ansfer Mobility/T 2-17 John ansfer device ransfer 12:03: [id number] present 00 Bed transfer PT/OT: Bed Active 2020-0 Tho Mobility/Tr deficit: Mobility/T 2-17 Kobkrystin ansfer sit/stand ransfer 12:03: [id number] 00 Bed transfer PT/OT: Bed Active 2020-0 Tho Mobility/Tr deficit: Mobility/T 2-17 Kobziewessence ansfer standing ransfer 12:03: [id number] pivot 00 Bed transfer PT/OT: Bed Active 2020-0 Tho Mobility/Tr deficit: Mobility/T 2-17 Kobrkystin ansfer toilet/comm ransfer 12:03: [id number] ode 00 Bed transfer PT/OT: Bed Active 2020-0 Tho Mobility/Tr deficit: Mobility/T 2-17 Kobkrystin ansfer shower/tub ransfer 12:03: [id number] 00 Bed transfer PT/OT: Bed Active 2020-0 Tho Mobility/Tr deficit: Mobility/T 2-17 John ansfer vehicle ransfer 12:03: [id number] 00 Bed knowledge/s PT/OT: Bed Active 2020-0 Tho Mobility/Tr kill Mobility/T 2-17 John arteaga deficit: pt ransfer 12:03: [id number] 00 Bed bed PT/OT: Bed Active 2020-0 Tho Mobility/Tr mobility Mobility/T 2-17 John ansfer deficit ransfer 12:03: [id number] 00 Balance/End balance/product safety coordinator PT/OT: Active 2020-0 Tho urance rdination Balance/En 2-17 John deficit durance 12:03: [id number] 00 OT: Self self-care OT: Active 2020-0 Tho Care deficit Self-Care 2-17 John 12:03: [id number] 00 OT: Self knowledge/s OT: Active 2020-0 Tho Care kill Self-Care 2-17 Kobziewicz deficit: pt 12:03: [id number] 00 Gait/Locomo gait PT/OT: Active Tho tion assistive Gait/Locom 2-17 Kobziewicz problems device otion 12:03: [id number] present 00 Gait/Locomo knowledge/s PT/OT: Active 2019-0 Tho tion kill Gait/Locom 2-17 Kobziewicz problems deficit: pt otion 12:03: [id number] 00 Gait/Locomo gait PT/OT: Active Tho tion deficit Gait/Locom 2-17 Kobziewicz problems otion 12:03: [id number] 00 Allergies, Adverse Reactions, Alerts Allergy Name Allergy Status Severity Reaction(s) Onset Inactive Treating Comments Type Date Date Clinician Penicillins Allergen Active Unknown Reaction 0 Sonia Group Unknown 2-15 Kailash [id number] cat dog Unknown Active Unknown Reaction 0 Sonia dander, Unknown 2-15 Kailash perfume,tar, [id number] cigarettes Medications Ordered Filled Start Stop Current Ordering Indication Dosage Frequency Signature Comments Components Medication Medication Date Date Medication? Clinician (SIG) Name Name baclofen 10 baclofen 10 2019-0 Yes Sopchak Unknown Unknown mg tablet mg tablet 2-15 DO,Gal Calcium 600 Calcium 600 2019-0 Yes Sopchak Unknown Unknown + D(3) 600 + D(3) 600 2-15 DO,Gal mg (1,500 mg (1,500 mg)-200 mg)-200 unit tablet unit tablet cod liver cod liver 2019-0 Yes Sopchak Unknown Unknown oil capsule oil capsule 2-15 DO,Gal docusate docusate 2019-0 Yes Sopchak Unknown Unknown sodium 100 sodium 100 2-15 DO,Gal mg capsule mg capsule dilTIAZem dilTIAZem 2019-0 Yes Sopchak Unknown Unknown CD 240 mg [...] mg 2-15 DO,Gal tablet tablet Iron Iron 2019-0 Yes Sopchak Unknown Unknown (ferrous (ferrous 2-15 [...] mg 2-15 DO,Gal capsule capsule polyethylen polyethylen 0 Yes Sopchak Unknown Unknown e glycol e [...]
--- OUTSIDE RECORDS SUMMARY | 2019-05-30 16:50 | XMS REPORT ---
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 [id number] 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 2018-03 Celia kidney kidney 2- Emmanuel disease, disease, [id number] stage 3 stage 3 (moderate) (moderate) Spinal Spinal Diagnosis Active 2018-03 Celia stenosis, stenosis, - Emmanuel cervical cervical [id number] region region 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 Obstructive Obstructive Diagnosis Active 2018-03 Celia sleep apnea sleep apnea 2-26 Emmanuel (adult) (adult) [id number] (pediatric) (pediatric) Morbid Morbid Diagnosis Active Celia (severe) (severe) Emmanuel obesity due obesity due [id number] to excess to excess calories calories Other Other Diagnosis Active Celia insomnia insomnia Emmanuel [id number] Unspecified Unspecified Diagnosis Active Celia glaucoma glaucoma Emmanuel [id number] Other iron 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 [id number] Vitamin Vitamin Diagnosis Active Celia deficiency, deficiency, Emmanuel unspecified unspecified [id number] Hyperlipide Hyperlipide Diagnosis Active Celia prashanth, prashanth, Emmanuel unspecified unspecified [id number] Gastro-esop Gastro-esop Diagnosis Active Celia hageal hageal Emmanuel reflux reflux [id number] disease disease without without esophagitis esophagitis Slow Slow Diagnosis Active Celia transit transit Emmanuel constipatio constipatio [id number] n n Pain in Pain in Diagnosis Active Celia left left Emmanuel shoulder shoulder [id number] Personal Personal Diagnosis Active Celia history of history of Emmanuel transient transient [id number] ischemic ischemic attack attack (TIA), and (TIA), and cerebral cerebral infarction infarction without without residual residual deficits deficits Personal Personal Diagnosis Active Celia history of history of Emmanuel urinary urinary [id number] (tract) (tract) infections infections CHCF CHCF Diagnosis Active Celia (current) (current) Emmanuel use of use of [id number] opiate opiate analgesic analgesic 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 Active Celia (current) (current) Emmanuel use of use of [id number] antithrombo antithrombo tics/antipl tics/antipl atelets atelets Other long Other long Diagnosis Active Celia term term Emmanuel (current) (current) [id number] drug drug therapy therapy Pain frequent Pain Mgmt Active 2020-0 Xochitl pain 2-15 (Guerda) 09:00: Kamlesh [id number] Cardio edema Cardiovasc Active 2020-0 Xochitl ular 2-15 (Guerda) 09:00: aKmlesh [id number] Cardio knowledge/s Cardiovasc Active 2020-0 Xochitl kill ular 2-15 (Guerda) deficit: pt 09:00: Kamlesh [id number] Respiratory dyspnea Respirator Active 2020-0 Xochitl present y 2-15 (Guerda) 09:00: Kamlesh [id number] Endo/Patrice anti-coagul Endo/Patrice Active 2020-0 Xochitl ation 2-15 (Guerda) therapy 09:00: Kamlesh [id number] Sensory impaired Sensory Active 2020-0 Xochitl hearing 2-15 (Guerda) 09:00: Kamlesh [id number] Integument skin Integument Active 2020-0 Xochitl integrity 2-15 (Guerda) risk 09:00: Kamlesh [id number] Nutrition nutritional Nutrition Active 2020-0 Xochitl restriction 2-15 (Guerda) s 09:00: Kamlesh [id number] Elimination urinary Eliminatio Active 2020-0 Xochitl incontinenc n 2-15 (Guerda) e 09:00: Kamlesh [id number] Neuro depressive Neuro/Emot Active 2020-0 Xochitl feelings ion 2-15 (Guerda) present 09:00: Whitlock [id number] Neuro impaired Neuro/Emot Active 2020-0 Xochitl decision-ma ion 2-15 (Guerda) bryanna 09:00: Whitlock [id number] Neuro memory Neuro/Emot Active 2020-0 Xochitl deficit ion 2-15 (Guerda) needing 09:00: Kamlesh supervision [id number] Activity ADL Activity Active 2020-0 Xochitl assistance 2-15 (Guerda) required 09:00: Whitlock [id number] Activity self-care Activity Active 2020-0 Xochitl deficit 2-15 (Guerda) 09:00: Kamlesh [id number] Safety fall risk Safety Active 2020-0 Xochitl factor 2-15 (Guerda) present 09:00: Kamlesh [id number] Safety risk for Safety Active 2020-0 Xochitl hospitaliza 2-15 (Guerda) tion 09:00: Kamlesh [id number] Safety can be left Safety Active 2020-0 Xochitl alone for 2-15 (Guerda) only short 09:00: Kamlesh periods [id number] Medication oral med Meds Active 2020-0 Xochitl assistance 2-15 (Guerda) required 09:00: Kamlesh [id number] Medication potential Meds Active 2020-0 Xochitl clinically 2-15 (Guerda) significant 09:00: Kamlesh medication [id number] issue Musculoskel transfer Musculoske Active 2020-0 Xochitl etal assistance letal 2-15 (Guerda) required 09:00: Kamlesh [id number] Musculoskel requires Musculoske Active 2020-0 Xochitl etal human letal 2-15 (Guerda) assist to 09:00: Kamlesh leave home 00 [id number] Pain knowledge/s Pain Mgmt Active 2019- Tho kill 2-17 John deficit: pt 12:03: [id number] ROM ROM PT: ROM Active Tho deficit: UE 2-17 John 12:03: [id number] 00 Strength/To strength PT: Active 0 Tho ne/Motor deficit: LE Strength 2-17 John Control 12:03: [id number] 00 Strength/To knowledge/s PT: Active 2019-0 Tho ne/Motor kill Strength 2-17 John Control deficit LE: 12:03: [id number] pt 00 Bed mobility/tr PT/OT: Bed Active 2020-0 Tho Mobility/Tr ansfer Mobility/T 2-17 John arteaga device ransfer 12:03: [id number] present 00 Bed transfer PT/OT: Bed Active 2020-0 Tho Mobility/Tr deficit: Mobility/T 2-17 John arteaga sit/stand ransfer 12:03: [id number] 00 Bed transfer PT/OT: Bed Active 2020-0 Tho Mobility/Tr deficit: Mobility/T 2-17 Kobkrystin arteaga standing ransfer 12:03: [id number] pivot 00 Bed transfer PT/OT: Bed Active 2020-0 Tho Mobility/Tr deficit: Mobility/T 2-17 Kobkrystin [facility] 12:03: [id number] ode 00 Bed transfer PT/OT: Bed Active 2020-0 Tho Mobility/Tr deficit: Mobility/T 2-17 John [facility] 12:03: [id number] 00 Bed transfer PT/OT: Bed Active 2020-0 Tho Mobility/Tr deficit: Mobility/T 2-17 John arteaga vehicle ransfer 12:03: [id number] 00 Bed knowledge/s PT/OT: Bed Active 2020-0 Tho Mobility/Tr kill Mobility/T 2-17 John arteaga deficit: pt ransfer 12:03: [id number] 00 Bed bed PT/OT: Bed Active 2020-0 Tho Mobility/Tr mobility Mobility/T 2-17 John arteaga deficit ransfer 12:03: [id number] 00 Balance/End balance/event coordinator PT/OT: Active 2020-0 Tho urance rdination Balance/En 2-17 John deficit durance 12:03: [id number] 00 OT: Self self-care OT: Active 2020-0 Tho Care deficit Self-Care 2-17 John 12:03: [id number] 00 OT: Self knowledge/s OT: Active 2020-0 Tho Care kill Self-Care 2-17 John deficit: pt 12:03: [id number] 00 Gait/Locomo gait PT/OT: Active 2020-0 Tho tion assistive Gait/Locom 2-17 Kobziewicz problems device otion 12:03: [id number] present 00 Gait/Locomo knowledge/s PT/OT: Active Tho tion kill Gait/Locom 2-17 Kobziewicz problems deficit: pt otion 12:03: [id number] 00 Gait/Locomo gait PT/OT: Active Tho tion deficit Gait/Locom 2-17 Kobziewicz problems otion 12:03: [id number] 00 Allergies, Adverse Reactions, Alerts Allergy Name Allergy Status Severity Reaction(s) Onset Inactive Treating Comments Type Date Date Clinician Penicillins Allergen Active Unknown Reaction Sonia Group Unknown 2-15 Kailash [id number] cat dog Unknown Active Unknown Reaction 0 Sonia dander, Unknown 2-15 Akilash perfume,tar, [id number] cigarettes Medications Ordered Filled Start Stop Current [...]
--- OUTSIDE RECORDS SUMMARY | 2019-05-30 16:50 | XMS REPORT ---
:1935 Author Organization [facility] Care Team Providers Name Role Phone Unavailable Unavailable Unavailable Problems Condition Condition Condition Status Onset Resolution Last Treating Comments Name Details Category Date Date Treatment Clinician Date Hypertensiv Hypertensiv Diagnosis Active 2018-03 Celia e chronic e chronic 2- Emmanuel kidney kidney [id number] disease disease with stage with stage 1 through 1 through stage 4 stage 4 chronic chronic kidney kidney disease, or disease, or unspecified unspecified chronic chronic kidney kidney disease disease 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 [id number] 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 2018-03 Celia kidney kidney 2- Emmanuel disease, disease, [id number] stage 3 stage 3 (moderate) (moderate) Spinal Spinal Diagnosis Active 2018-03 Celia stenosis, stenosis, - Emmanuel cervical cervical [id number] region region 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 [id number] [place] 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 Obstructive Obstructive Diagnosis Active 2018-03 Celia sleep apnea sleep apnea 2-26 Emmanuel (adult) (adult) [id number] (pediatric) (pediatric) Morbid Morbid Diagnosis Active Celia (severe) (severe) Emmanuel obesity due obesity due [id number] to excess to excess calories calories Other Other Diagnosis Active Celia insomnia insomnia Emmanuel [id number] Unspecified Unspecified Diagnosis Active Celia glaucoma glaucoma Emmanuel [id number] Other iron 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 [id number] Vitamin Vitamin Diagnosis Active Celia deficiency, deficiency, Emmanuel unspecified unspecified [id number] Hyperlipide Hyperlipide Diagnosis Active Celia prashanth, prashanth, Emmanuel unspecified unspecified [id number] Gastro-esop Gastro-esop Diagnosis Active Celia hageal hageal Emmanuel reflux reflux [id number] disease disease without without esophagitis esophagitis Slow Slow Diagnosis Active Celia transit transit Emmanuel constipatio constipatio [id number] n n Pain in Pain in Diagnosis Active Celia left left Emmanuel shoulder shoulder [id number] Personal Personal Diagnosis Active Celia history of history of Emmanuel transient transient [id number] ischemic ischemic attack attack (TIA), and (TIA), and cerebral cerebral infarction infarction without without residual residual deficits deficits Personal Personal Diagnosis Active Celia history of history of Emmanuel urinary urinary [id number] (tract) (tract) infections infections MCC MCC Diagnosis Active Celia (current) (current) Emmanuel use of use of [id number] opiate opiate analgesic analgesic 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 (current) (current) Emmanuel use of use of [id number] antithrombo antithrombo tics/antipl tics/antipl atelets atelets Other long Other long Diagnosis Active Celia term term Emmanuel (current) (current) [id number] drug drug therapy therapy Pain frequent Pain Mgmt Active 2020-0 Xochitl pain 2-15 (Guerda) 09:00: Kamlesh [id number] Cardio edema Cardiovasc Active 2020-0 Xochitl ular 2-15 (Guerda) 09:00: Kamlesh [id number] Cardio knowledge/s Cardiovasc Active 2020-0 Xochitl kill ular 2-15 (Guerda) deficit: pt 09:00: Kamlesh [id number] Respiratory dyspnea Respirator Active 2020-0 Xochitl present y 2-15 (Guerda) 09:00: Kamlesh [id number] Endo/Patrice anti-coagul Endo/Patrice Active 2020-0 Xochitl ation 2-15 (Guerda) therapy 09:00: Kamlesh [id number] Sensory impaired Sensory Active 2020-0 Xochitl hearing 2-15 (Guerda) 09:00: Kamlesh [id number] Integument skin Integument Active 2020-0 Xochitl integrity 2-15 (Guerda) risk 09:00: Kamlesh [id number] Nutrition nutritional Nutrition Active 2020-0 Xochitl restriction 2-15 (Guerda) s 09:00: Kamlesh [id number] Elimination urinary Eliminatio Active 2020-0 Xochitl incontinenc n 2-15 (Guerda) e 09:00: Kamlesh [id number] Neuro depressive Neuro/Emot Active 2020-0 Xochitl feelings ion 2-15 (Guerda) present 09:00: Whitlock [id number] Neuro impaired Neuro/Emot Active 2020-0 Xochitl decision-ma ion 2-15 (Guerda) bryanna 09:00: Whitlock [id number] Neuro memory Neuro/Emot Active 2020-0 Xochitl deficit ion 2-15 (Guerda) needing 09:00: Kamlesh supervision [id number] Activity ADL Activity Active 2020-0 Xochitl assistance 2-15 (Guerda) required 09:00: Whitlock [id number] Activity self-care Activity Active 2020-0 Xochitl deficit 2-15 (Guerda) 09:00: Kamlesh [id number] Safety fall risk Safety Active 2020-0 Xochitl factor 2-15 (Guerda) present 09:00: Kamlesh [id number] Safety risk for Safety Active 2020-0 Xochitl hospitaliza 2-15 (Guerda) tion 09:00: Kamlesh [id number] Safety can be left Safety Active 2020-0 Xochitl alone for 2-15 (Guerda) only short 09:00: Kamlesh periods [id number] Medication oral med Meds Active 2020-0 Xochitl assistance 2-15 (Guerda) required 09:00: Kamlesh [id number] Medication potential Meds Active 2020-0 Xochitl clinically 2-15 (Guerda) significant 09:00: Kamlesh medication [id number] issue Musculoskel transfer Musculoske Active 2020-0 Xochitl etal assistance letal 2-15 (Guerda) required 09:00: Kamlesh [id number] Musculoskel requires Musculoske Active 2020-0 Xochitl etal human letal 2-15 (Guerda) assist to 09:00: Kamlesh leave home 00 [id number] Pain knowledge/s Pain Mgmt Active 2019- Tho kill 2-17 John deficit: pt 12:03: [id number] 00 ROM ROM PT: ROM Active Tho deficit: UE 2-17 John 12:03: [id number] 00 Strength/To strength PT: Active 0 Tho ne/Motor deficit: LE Strength 2-17 John Control 12:03: [id number] 00 Strength/To knowledge/s PT: Active 2019-0 Tho ne/Motor kill Strength 2-17 John Control deficit LE: 12:03: [id number] pt 00 Bed mobility/tr PT/OT: Bed Active 2020-0 Tho Mobility/Tr ansfer Mobility/T 2-17 John arteaga device ransfer 12:03: [id number] present 00 Bed transfer PT/OT: Bed Active 2020-0 Tho Mobility/Tr deficit: Mobility/T 2-17 John arteaga sit/stand ransfer 12:03: [id number] 00 Bed transfer PT/OT: Bed Active 2020-0 Tho Mobility/Tr deficit: Mobility/T 2-17 Kobkrystin arteaga standing ransfer 12:03: [id number] pivot 00 Bed transfer PT/OT: Bed Active 2020-0 Tho Mobility/Tr deficit: Mobility/T 2-17 Kobkrystin [facility] 12:[facility]: [id number] ode 00 Bed transfer PT/OT: Bed Active 2020-0 Tho Mobility/Tr deficit: Mobility/T 2-17 John arteaga [facility] 12:[facility]: [id number] 00 Bed transfer PT/OT: Bed Active 2020-0 Tho Mobility/Tr deficit: Mobility/T 2-17 John arteaga vehicle ransfer 12:03: [id number] 00 Bed knowledge/s PT/OT: Bed Active 2020-0 Tho Mobility/Tr kill Mobility/T 2-17 John arteaga deficit: pt ransfer 12:03: [id number] 00 Bed bed PT/OT: Bed Active 2020-0 Tho Mobility/Tr mobility Mobility/T 2-17 John arteaga deficit ransfer 12:03: [id number] 00 Balance/End balance/merchandising coordinator PT/OT: Active 2020-0 Tho urance rdination Balance/En 2-17 John deficit durance 12:03: [id number] 00 OT: Self self-care OT: Active 2020-0 Tho Care deficit Self-Care 2-17 John 12:03: [id number] 00 OT: Self knowledge/s OT: Active 2020-0 Tho Care kill Self-Care 2-17 John deficit: pt 12:03: [id number] 00 Gait/Locomo gait PT/OT: Active 2020-0 Tho tion assistive Gait/Locom 2-17 Kobziewicz problems device otion 12:03: [id number] present 00 Gait/Locomo knowledge/s PT/OT: Active Tho tion kill Gait/Locom 2-17 Kobziewicz problems deficit: pt otion 12:03: [id number] 00 Gait/Locomo gait PT/OT: Active Tho tion deficit Gait/Locom 2-17 Kobziewicz problems otion 12:03: [id number] 00 Allergies, Adverse Reactions, Alerts Allergy Name Allergy Status Severity Reaction(s) Onset Inactive Treating Comments Type Date Date Clinician Penicillins Allergen Active Unknown Reaction Sonia Group Unknown 2-15 Kailash [id number] cat dog Unknown Active Unknown Reaction 0 Sonia dander, Unknown 2-15 Kailash perfume,tar, [id number] cigarettes Medications Ordered Filled Start Stop Current [...]
--- OUTSIDE RECORDS SUMMARY | 2019-05-30 16:50 | XMS REPORT ---
:1935 Author Organization [facility] Care Team Providers Name Role Phone Unavailable Unavailable Unavailable Problems Condition Condition Condition Status Onset Resolution Last Treating Comments Name Details Category Date Date Treatment Clinician Date Hypertensiv Hypertensiv Diagnosis Active 2018-03 Celia e chronic e chronic 2- Emmanuel kidney kidney [id number] disease disease with stage with stage 1 through 1 through stage 4 stage 4 chronic chronic kidney kidney disease, or disease, or unspecified unspecified chronic chronic kidney kidney disease disease 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 [id number] 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 2018-03 Celia kidney kidney 2- Emmanuel disease, disease, [id number] stage 3 stage 3 (moderate) (moderate) Spinal Spinal Diagnosis Active 2018-03 Celia stenosis, stenosis, 2- Emmanuel cervical cervical [id number] region region 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 [id number] [place] 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 Obstructive Obstructive Diagnosis Active 2018-03 Celia sleep apnea sleep apnea 2-26 Emmanuel (adult) (adult) [id number] (pediatric) (pediatric) Morbid Morbid Diagnosis Active Celia (severe) (severe) Emmanuel obesity due obesity due [id number] to excess to excess calories calories Other Other Diagnosis Active Celia insomnia insomnia Emmanuel [id number] Unspecified Unspecified Diagnosis Active Celia glaucoma glaucoma Emmanuel [id number] Other iron 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 [id number] Vitamin Vitamin Diagnosis Active Celia deficiency, deficiency, Emmanuel unspecified unspecified [id number] Hyperlipide Hyperlipide Diagnosis Active Celia prashanth, prashanth, Emmanuel unspecified unspecified [id number] Gastro-esop Gastro-esop Diagnosis Active Celia hageal hageal Emmanuel reflux reflux [id number] disease disease without without esophagitis esophagitis Slow Slow Diagnosis Active Celia transit transit Emmanuel constipatio constipatio [id number] n n Pain in Pain in Diagnosis Active Celia left left Emmanuel shoulder shoulder [id number] Personal Personal Diagnosis Active Celia history of history of Emmanuel transient transient [id number] ischemic ischemic attack attack (TIA), and (TIA), and cerebral cerebral infarction infarction without without residual residual deficits deficits Personal Personal Diagnosis Active Celia history of history of Emmanuel urinary urinary [id number] (tract) (tract) infections infections FCI FCI Diagnosis Active Celia (current) (current) Emmanuel use of use of [id number] opiate opiate analgesic analgesic 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 (current) (current) Emmanuel use of use of [id number] antithrombo antithrombo tics/antipl tics/antipl atelets atelets Other long Other long Diagnosis Active Celia term term Emmanuel (current) (current) [id number] drug drug therapy therapy Pain frequent Pain Mgmt Active 2020-0 Xochitl pain 2-15 (Guerda) 09:00: Kamlesh [id number] Cardio edema Cardiovasc Active 2020-0 Xochitl ular 2-15 (Guerda) 09:00: Kamlesh [id number] Cardio knowledge/s Cardiovasc Active 2020-0 Xochitl kill ular 2-15 (Guerda) deficit: pt 09:00: Kamlesh [id number] Respiratory dyspnea Respirator Active 2020-0 Xochitl present y 2-15 (Guerda) 09:00: Kamlesh [id number] Endo/Patrice anti-coagul Endo/Patrice Active 2020-0 Xochitl ation 2-15 (Guerda) therapy 09:00: Kamlesh [id number] Sensory impaired Sensory Active 2020-0 Xochitl hearing 2-15 (Guerda) 09:00: Kamlesh [id number] Integument skin Integument Active 2020-0 Xochitl integrity 2-15 (Guerda) risk 09:00: Kamlesh [id number] Nutrition nutritional Nutrition Active 2020-0 Xochitl restriction 2-15 (Guerda) s 09:00: Kamlesh [id number] Elimination urinary Eliminatio Active 2020-0 Xochitl incontinenc n 2-15 (Guerda) e 09:00: Kamlesh [id number] Neuro depressive Neuro/Emot Active 2020-0 Xochitl feelings ion 2-15 (Guerda) present 09:00: Whitlock [id number] Neuro impaired Neuro/Emot Active 2020-0 Xochitl decision-ma ion 2-15 (Guerda) bryanna 09:00: Whitlock [id number] Neuro memory Neuro/Emot Active 2020-0 Xochitl deficit ion 2-15 (Guerda) needing 09:00: Kamlesh supervision [id number] Activity ADL Activity Active 2020-0 Xochitl assistance 2-15 (Guerda) required 09:00: Whitlock [id number] Activity self-care Activity Active 2020-0 Xochitl deficit 2-15 (Guerda) 09:00: Kamlesh [id number] Safety fall risk Safety Active 2020-0 Xochitl factor 2-15 (Guerda) present 09:00: Kamlesh [id number] Safety risk for Safety Active 2020-0 Xochitl hospitaliza 2-15 (Guerda) tion 09:00: Kamlesh [id number] Safety can be left Safety Active 2020-0 Xochitl alone for 2-15 (Guerda) only short 09:00: Kamlesh periods [id number] Medication oral med Meds Active 2020-0 Xochitl assistance 2-15 (Guerda) required 09:00: Kamlesh [id number] Medication potential Meds Active 2020-0 Xochitl clinically 2-15 (Guerda) significant 09:00: Kamlesh medication [id number] issue Musculoskel transfer Musculoske Active 2020-0 Xochitl etal assistance letal 2-15 (Guerda) required 09:00: Kamlesh [id number] Musculoskel requires Musculoske Active 2020-0 Xochitl etal human letal 2-15 (Guerda) assist to 09:00: Kamlesh leave home 00 [id number] Pain knowledge/s Pain Mgmt Active 2019- Tho kill 2-17 John deficit: pt 12:03: [id number] ROM ROM PT: ROM Active Tho deficit: UE 2-17 John 12:03: [id number] 00 Strength/To strength PT: Active 0 Tho ne/Motor deficit: LE Strength 2-17 John Control 12:03: [id number] 00 Strength/To knowledge/s PT: Active 2019-0 Tho ne/Motor kill Strength 2-17 John Control deficit LE: 12:03: [id number] pt 00 Bed mobility/tr PT/OT: Bed Active 2020-0 Tho Mobility/Tr ansfer Mobility/T 2-17 John arteaga device ransfer 12:03: [id number] present 00 Bed transfer PT/OT: Bed Active 2020-0 Tho Mobility/Tr deficit: Mobility/T 2-17 John arteaga sit/stand ransfer 12:03: [id number] 00 Bed transfer PT/OT: Bed Active 2020-0 Tho Mobility/Tr deficit: Mobility/T 2-17 Kobkrystin arteaga standing ransfer 12:03: [id number] pivot 00 Bed transfer PT/OT: Bed Active 2020-0 Tho Mobility/Tr deficit: Mobility/T 2-17 [facility]krystin [facility] 12:03: [id number] ode 00 Bed transfer PT/OT: Bed Active 2020-0 Tho Mobility/Tr deficit: Mobility/T 2-17 John [facility] 12:03: [id number] 00 Bed transfer PT/OT: Bed Active 2020-0 Tho Mobility/Tr deficit: Mobility/T 2-17 John arteaga vehicle ransfer 12:03: [id number] 00 Bed knowledge/s PT/OT: Bed Active 2020-0 Tho Mobility/Tr kill Mobility/T 2-17 John arteaga deficit: pt ransfer 12:03: [id number] 00 Bed bed PT/OT: Bed Active 2020-0 Tho Mobility/Tr mobility Mobility/T 2-17 John arteaga deficit ransfer 12:03: [id number] 00 Balance/End balance/branch operations coordinator PT/OT: Active 2020-0 Tho urance rdination Balance/En 2-17 John deficit durance 12:03: [id number] 00 OT: Self self-care OT: Active 2020-0 Toh Care deficit Self-Care 2-17 John 12:03: [id number] 00 OT: Self knowledge/s OT: Active 2020-0 Tho Care kill Self-Care 2-17 John deficit: pt 12:03: [id number] 00 Gait/Locomo gait PT/OT: Active 2020-0 Tho tion assistive Gait/Locom 2-17 Kobziewicz problems device otion 12:03: [id number] present 00 Gait/Locomo knowledge/s PT/OT: Active Tho tion kill Gait/Locom 2-17 Kobziewicz problems deficit: pt otion 12:03: [id number] 00 Gait/Locomo gait PT/OT: Active Tho tion deficit Gait/Locom 2-17 Kobziewicz problems otion 12:03: [id number] 00 Allergies, Adverse Reactions, Alerts Allergy Name Allergy Status Severity Reaction(s) Onset Inactive Treating Comments Type Date Date Clinician Penicillins Allergen Active Unknown Reaction Sonia Group Unknown 2-15 Kailash [id number] cat dog Unknown Active Unknown Reaction 0 Sonia dander, Unknown 2-15 Kailash perfume,tar, [id number] cigarettes Medications Ordered Filled Start Stop Current [...]
--- OUTSIDE RECORDS SUMMARY | 2019-05-30 16:51 | XMS REPORT ---
:1935 Author Organization [facility] Care Team Providers Name Role Phone Unavailable Unavailable Unavailable Problems Condition Condition Condition Status Onset Resolution Last Treating Comments Name Details Category Date Date Treatment Clinician Date Cerebral Cerebral Diagnosis Active Celia infarction, infarction, 1-28 Emmanuel unspecified unspecified [id number] Allergies, Adverse Reactions, Alerts Allergy Allergy Status Severity Reaction(s) Onset Inactive Treating Comments Name Type Date Date Clinician Unknown None Active Unknown None Unknown No Known Allergies For This Patient Medications Ordered Filled Start Stop Current Ordering Indication Dosage Frequency Signature Comments Components Medication Medication Date Date Medication? Clinician (SIG) Name Name No Known No Known No None None None Medications Medications For This For This Patient Patient Procedures This patient has no known procedures. Results This patient has no known results.
--- OUTSIDE RECORDS SUMMARY | 2019-05-30 16:51 | XMS REPORT ---
:06/06/1925 Author Organization [facility] [place] [facility] Care Team Providers Name Role Phone Unavailable Unavailable Unavailable Problems Condition Condition Condition Status Onset Resolution Last Treating Comments Name Details Category Date Date Treatment Clinician Date Cerebral Cerebral Diagnosis Active Dannielle infarction, infarction, 1-28 Wendela unspecified unspecified Allergies, Adverse Reactions, Alerts Allergy Allergy Status [...]
--- OUTSIDE RECORDS SUMMARY | 2019-05-30 16:51 | XMS REPORT ---
:06/06/1925 Author Organization [facility] Care Team Providers Name Role Phone Unavailable [...]
--- OUTSIDE RECORDS SUMMARY | 2019-05-30 16:51 | XMS REPORT ---
:1935 Author Organization [facility] [place] Care Team Providers Name Role Phone Unavailable [...]
--- OUTSIDE RECORDS SUMMARY | 2019-05-30 16:51 | XMS REPORT ---
:1935 Author Organization [facility] Care Team Providers Name Role Phone Unavailable Unavailable Unavailable Problems Condition Condition Condition Status Onset Resolution Last Treating Comments Name Details Category Date Date Treatment Clinician Date Cerebral Cerebral Diagnosis Active 2020-0 Celia infarction, infarction, 1-28 Emmanuel unspecified unspecified [id number] Pain frequent Pain Mgmt Active 2020-0 Xochitl pain 2-15 (Guerda) 09:00: Kamlesh [id number] Cardio edema Cardiovasc Active 2020-0 Xochitl ular 2-15 (Guerda) 09:00: Kamlesh [id number] Cardio knowledge/s Cardiovasc Active 2020-0 Xochitl kill ular 2-15 (Guerda) deficit: pt 09:00: Kamlesh [id number] Respiratory dyspnea Respirator Active 2020-0 Xochitl present y 2-15 (Guerda) 09:00: Kamlesh [id number] Endo/Patrice anti-coagul Endo/Patrice Active 2020-0 Xochitl ation 2-15 (Guerda) therapy 09:00: Kamlesh [id number] Sensory impaired Sensory Active 2020-0 Xochitl hearing 2-15 (Guerda) 09:00: Kamlesh [id number] Integument skin Integument Active 2020-0 Xochitl integrity 2-15 (Guerda) risk 09:00: Kamlesh [id number] Nutrition nutritional Nutrition Active 2020-0 Xochitl restriction 2-15 (Guerda) s 09:00: Kamlesh [id number] Elimination urinary Eliminatio Active 2020-0 Xochitl incontinenc n 2-15 (Guerda) e 09:00: Kamlesh [id number] Neuro depressive Neuro/Emot Active 2020-0 Xochitl feelings ion 2-15 (Guerda) present 09:00: Kamlesh [id number] Neuro impaired Neuro/Emot Active 2020-0 Xochitl decision-ma ion 2-15 (Guerda) bryanna 09:00: Kamlesh [id number] Neuro memory Neuro/Emot Active 2020-0 Xochitl deficit ion 2-15 (Guerda) needing 09:00: Whitlock supervision [id number] Activity ADL Activity Active 2020-0 Xochitl assistance 2-15 (Guerda) required 09:00: Whitlock [id number] Activity self-care Activity Active 2020-0 Xochitl deficit 2-15 (Guerda) 09:00: Whitlock [id number] Safety fall risk Safety Active 2020-0 Xochitl factor 2-15 (Guerda) present 09:00: Whitlock [id number] Safety risk for Safety Active 2020-0 Xochitl hospitaliza 2-15 (Guerda) tion 09:00: Whitlock [id number] Safety can be left Safety Active 2020-0 Xochitl alone for 2-15 (Guerda) only short 09:00: Whitlock periods [id number] Medication oral med Meds Active 2020-0 Xochitl assistance 2-15 (Guerda) required 09:00: Whitlock [id number] Medication potential Meds Active 2019-0 Xochitl clinically 2-15 (Guerda) significant 09:00: Kamlesh medication [id number] issue Musculoskel transfer Musculoske Active 2020-0 Xochitl etal assistance letal 2-15 (Guerda) required 09:00: Whitlock [id number] Musculoskel requires Musculoske Active 2020-0 Xochitl etal human letal 2-15 (Guerda) assist to 09:00: Kamlesh leave home [id number] Pain knowledge/s Pain Mgmt Active Tho jcaob 2-17 John deficit: pt 12:03: [id number] 00 ROM ROM PT: ROM Active 0 Tho deficit: UE 2-17 John 12:03: [id number] 00 Strength/To strength PT: Active 2019-0 Tho ne/Motor deficit: LE Strength 2-17 John Control 12:03: [id number] 00 Strength/To knowledge/s PT: Active 2020-0 Tho ne/Motor kill Strength 2-17 John Control deficit LE: 12:03: [id number] pt 00 Bed mobility/tr PT/OT: Bed Active 2020-0 Tho Mobility/Tr ansfer Mobility/T 2-17 John ansfer device ransfer 12:03: [id number] present 00 Bed transfer PT/OT: Bed Active 2020-0 Tho Mobility/Tr deficit: Mobility/T 2-17 Kobstanfabiola ferreirafarhat sit/stand ransfer 12:03: [id number] 00 Bed transfer PT/OT: Bed Active 2020-0 Tho Mobility/Tr deficit: Mobility/T 2-17 Kobstanewessence ansfer standing ransfer 12:03: [id number] pivot 00 Bed transfer PT/OT: Bed Active 2020-0 Tho Mobility/Tr deficit: Mobility/T 2-17 Kobstanewessence [facility] 12:03: [id number] ode 00 Bed transfer PT/OT: Bed Active 2020-0 Tho Mobility/Tr deficit: Mobility/T 2-17 Kobstanewessence [facility]aga [facility] 12:03: [id number] 00 Bed transfer PT/OT: Bed Active 2020-0 Tho Mobility/Tr deficit: Mobility/T 2-17 [facility]krystin [facility] 12:03: [id number] 00 Bed knowledge/s PT/OT: Bed Active 2020-0 Tho Mobility/Tr kill Mobility/T 2-17 John arteaga [facility] 12:03: [id number] 00 Bed bed PT/OT: Bed Active 2020-0 Tho Mobility/Tr mobility Mobility/T 2-17 Kobstanstevenessence [facility]honfarhat [facility] 12:03: [id number] 00 Balance/End balance/measurement coordinator PT/OT: Active 2020-0 Tho urance rdination Balance/En 2-17 Kobziewicz deficit durance 12:03: [id number] 00 OT: Self self-care OT: Active 2020-0 Tho Care deficit Self-Care 2-17 Kobziewicz 12:03: [id number] 00 OT: Self knowledge/s OT: Active 2020-0 Tho Care kill Self-Care 2-17 Kobziewicz deficit: pt 12:03: [id number] 00 Gait/Locomo gait PT/OT: Active 2020-0 Tho tion assistive Gait/Locom 2-17 Kobziewicz problems device otion 12:03: [id number] present 00 Gait/Locomo knowledge/s PT/OT: Active 2020-0 Tho tion kill Gait/Locom 2-17 Kobziewicz problems deficit: pt otion 12:03: [id number] 00 Gait/Locomo gait PT/OT: Active 2019-0 Tho tion deficit Gait/Locom 2-17 Kobstanewicz problems otion 12:03: [id number] 00 Allergies, Adverse Reactions, Alerts Allergy Name Allergy Status Severity Reaction(s) Onset Inactive Treating Comments Type Date Date Clinician Penicillins Allergen Active Unknown Reaction 2019-0 Sonia Group Unknown 2-15 Kailash [id number] cat dog Unknown Active Unknown Reaction 2019-0 Sonia dander, Unknown 2-15 Kailash perfume,tar, [id number] cigarettes Medications Ordered Filled Start Stop Current [...] tablet unit tablet cod liver cod liver 0 Yes Sopchak Unknown Unknown oil capsule oil [...] iron) mg iron) tablet tablet atorvastati atorvastati 2019-0 Yes Sopchak Unknown Unknown n 20 mg n 20 mg 2-15 DO,Gal tablet tablet lisinopril lisinopril 2020-0 Yes Sopchak Unknown Unknown 10 mg 10 [...] Observation Time Observation Value Comments SYSTOLIC mm[Hg] 2019-05-13 18:10:27 112 mm[Hg] mm[Hg] Method: Sit SYSTOLIC mm[Hg] 2019-05-12 18:10:26 130 mm[Hg] mm[Hg] Method: Stand DIASTOLIC mm[Hg] 2019-05-13 18:10:27 68 mm[Hg] mm[Hg] Method: Sit DIASTOLIC mm[Hg] 2019-05-12 18:10:26 80 mm[Hg] mm[Hg] Method: Stand PULSE 2019-05-13 18:10:27 68 /min /min RESP RATE 2019-05-13 18:10:27 18 /min /min TEMP 2019-05-13 18:10:27 98.9 [degF] Procedures This patient has no known procedures. Results This patient has no known results.
--- OUTSIDE RECORDS SUMMARY | 2019-05-30 16:51 | XMS REPORT ---
:1935 Author Organization [facility] Care Team Providers Name Role Phone Unavailable [...]
--- OUTSIDE RECORDS SUMMARY | 2019-05-30 16:51 | XMS REPORT ---
:1935 Author Organization [facility] Care Team Providers Name Role Phone Unavailable Unavailable Unavailable Problems Condition Condition Condition Status Onset Resolution Last Treating Comments Name Details Category Date Date Treatment Clinician Date Cerebral Cerebral Diagnosis Active 2020-0 Celia infarction, infarction, 1-28 Emmanuel unspecified unspecified [id number] Pain frequent Pain Mgmt Active 2020-0 Xochitl pain 2-15 (Guerda) 09:00: Kamlesh [id number] Cardio edema Cardiovasc Active 2020-0 Xochitl ular 2-15 (Guerda) 09:00: Kamlesh [id number] Cardio knowledge/s Cardiovasc Active 2020-0 Xochitl kill ular 2-15 (Guerda) deficit: pt 09:00: Kamlesh [id number] Respiratory dyspnea Respirator Active 2020-0 Xochitl present y 2-15 (Guerda) 09:00: Kamlesh [id number] Endo/Patrice anti-coagul Endo/Patrice Active 2020-0 Xochitl ation 2-15 (Guerda) therapy 09:00: Kamlesh [id number] Sensory impaired Sensory Active 2020-0 Xochitl hearing 2-15 (Guerda) 09:00: Kamlesh [id number] Integument skin Integument Active 2020-0 Xochitl integrity 2-15 (Guerda) risk 09:00: Kamlesh [id number] Nutrition nutritional Nutrition Active 2020-0 Xochitl restriction 2-15 (Guerda) s 09:00: Kamlesh [id number] Elimination urinary Eliminatio Active 2020-0 Xochitl incontinenc n 2-15 (Guerda) e 09:00: Kamlesh [id number] Neuro depressive Neuro/Emot Active 2020-0 Xochitl feelings ion 2-15 (Guerda) present 09:00: Kamlesh [id number] Neuro impaired Neuro/Emot Active 2020-0 Xochitl decision-ma ion 2-15 (Guerda) bryanna 09:00: Kamlesh [id number] Neuro memory Neuro/Emot Active 2020-0 Xochitl deficit ion 2-15 (Guerda) needing 09:00: Whitlock supervision [id number] Activity ADL Activity Active 2020-0 Xochitl assistance 2-15 (Guerda) required 09:00: Whitlock [id number] Activity self-care Activity Active 2020-0 Xochitl deficit 2-15 (Guerda) 09:00: Whitlock [id number] Safety fall risk Safety Active 2020-0 Xochitl factor 2-15 (Guerda) present 09:00: Whitlock [id number] Safety risk for Safety Active 2020-0 Xochitl hospitaliza 2-15 (Guerda) tion 09:00: Whitlock [id number] Safety can be left Safety Active 2020-0 Xochitl alone for 2-15 (Guerda) only short 09:00: Whitlock periods [id number] Medication oral med Meds Active 2020-0 Xochitl assistance 2-15 (Guerda) required 09:00: Whitlock [id number] Medication potential Meds Active 2019-0 Xochitl clinically 2-15 (Guerda) significant 09:00: Kamlesh medication [id number] issue Musculoskel transfer Musculoske Active 2020-0 Xochitl etal assistance letal 2-15 (Guerda) required 09:00: Whitlock [id number] Musculoskel requires Musculoske Active 2020-0 Xochitl etal human letal 2-15 (Guerda) assist to 09:00: Kamlesh leave home [id number] Pain knowledge/s Pain Mgmt Active Tho jacob 2-17 John deficit: pt 12:03: [id number] 00 ROM ROM PT: ROM Active 0 Tho deficit: UE 2-17 John 12:03: [id number] 00 Strength/To strength PT: Active 2019-0 Tho ne/Motor deficit: LE Strength 2-17 John Control 12:03: [id number] 00 Strength/To knowledge/s PT: Active 2020-0 Tho ne/Motor kill Strength 2-17 John Control deficit LE: 12:03: [id number] pt 00 Bed mobility/tr PT/OT: Bed Active 2020-0 Tho Mobility/Tr ansfer Mobility/T 2-17 John ansfer device ransfer 12:03: [id number] present 00 Bed transfer PT/OT: Bed Active 2020-0 Tho Mobility/Tr deficit: Mobility/T 2-17 Kobstanfabiola ferreirafarhat sit/stand ransfer 12:03: [id number] 00 Bed transfer PT/OT: Bed Active 2020-0 Tho Mobility/Tr deficit: Mobility/T 2-17 Kobstanewessence ansfer standing ransfer 12:03: [id number] pivot 00 Bed transfer PT/OT: Bed Active 2020-0 Tho Mobility/Tr deficit: Mobility/T 2-17 Kobstanewessence [facility] 12[facility]: [id number] ode 00 Bed transfer PT/OT: Bed Active 2020-0 Tho Mobility/Tr deficit: Mobility/T 2-17 Kobstanewessence arteaga [facility] 12:03: [id number] 00 Bed transfer PT/OT: Bed Active 2020-0 Tho Mobility/Tr deficit: Mobility/T 2-17 Kobkrystin [facility] 12:03: [id number] 00 Bed knowledge/s PT/OT: Bed Active 2020-0 Tho Mobility/Tr kill Mobility/T 2-17 John arteaga [facility] 12:[facility]: [id number] 00 Bed bed PT/OT: Bed Active 2020-0 Tho Mobility/Tr mobility Mobility/T 2-17 Kobstanstevenessence [facility]honfarhat [facility] 12:03: [id number] 00 Balance/End balance/scan coordinator PT/OT: Active 2020-0 Tho urance rdination Balance/En 2-17 Kobziewicz deficit durance 12:03: [id number] 00 OT: Self self-care OT: Active 2020-0 Tho Care deficit Self-Care 2-17 Kobziewicz 12:03: [id number] 00 OT: Self knowledge/s OT: Active 2020-0 Tho Care kill Self-Care 2-17 Kobziewicz deficit: pt 12:03: [id number] 00 Gait/Locomo gait PT/OT: Active 2020-0 Tho tion assistive Gait/Locom 2-17 Kobziewicz problems device otion 12:03: [id number] present 00 Gait/Locomo knowledge/s PT/OT: Active 2020-0 Tho tion kill Gait/Locom 2-17 Kobziewicz problems deficit: pt otion 12:03: [id number] 00 Gait/Locomo gait PT/OT: Active Tho tion deficit Gait/Locom 2-17 Kobrobyicz problems otion 12:03: [id number] 00 Allergies, Adverse Reactions, Alerts Allergy Allergy Status [...] mg 2-15 DO,Gal capsule capsule hydrALAZINE hydrALAZINE 0 Yes Sopchak Unknown Unknown 25 mg 25 mg 2-15 DO,Gal tablet tablet Iron Iron 2019-0 Yes Sopchak Unknown Unknown (ferrous (ferrous 2-15 DO,Gal sulfate) sulfate) 325 mg (65 325 mg (65 mg iron) mg iron) tablet tablet atorvastati atorvastati 2019-0 Yes Sopchak Unknown Unknown n 20 mg n 20 mg 2-15 DO,Gal tablet tablet lisinopril lisinopril 2019-0 Yes Sopchak Unknown Unknown 10 mg 10 mg 2-15 DO,Gal tablet tablet Milk of Milk of 0 Yes Sopchak Unknown Unknown Magnesia Magnesia 2-15 DO,Gal 400 mg/5 mL 400 mg/5 mL oral oral suspension suspension multivitami multivitami 2019-0 Yes Sopchak Unknown Unknown n capsule n capsule 2-15 DO,Gal nitroglycer nitroglycer 2019-0 Yes Sopchak Unknown Unknown in 0.4 mg in 0.4 mg 2-15 DO,Gal sublingual sublingual tablet tablet omeprazole omeprazole 2019-0 Yes Sopchak Unknown Unknown 20 mg 20 mg 2-15 DO,Gal capsule,del capsule,del ayed ayed release release oxyCODONE-a oxyCODONE-a 2019-0 Yes Sopchak Unknown Unknown cetaminophe cetaminophe 2-15 DO,Gal n 5 mg-325 n 5 mg-325 mg tablet mg tablet clopidogrel clopidogrel Yes Sopchak Unknown Unknown 75 mg 75 mg 2-15 DO,Gal tablet tablet valACYclovi valACYclovi 2019-0 Yes Sopchak Unknown Unknown r 500 mg r 500 mg 2-15 DO,Gal tablet tablet cetirizine cetirizine Yes Sopchak Unknown Unknown 10 mg 10 mg 2-15 DO,Gal capsule capsule cranberry cranberry 2019-0 Yes Sopchak Unknown Unknown 400 mg 400 mg 2-15 DO,Gal capsule capsule polyethylen polyethylen 2019-0 Yes Sopchak Unknown Unknown e glycol e glycol 2-15 DO,Gal 3350 17 3350 17 gram/dose gram/dose oral powder oral powder Vital Signs Vital Name Observation Time Observation Value Comments SYSTOLIC mm[Hg] 2019-05-12 18:10:26 128 mm[Hg] mm[Hg] Method: Sit SYSTOLIC mm[Hg] 2019-05-12 18:10:26 130 mm[Hg] mm[Hg] Method: Stand DIASTOLIC mm[Hg] 2019-05-12 18:10:26 74 mm[Hg] mm[Hg] Method: Sit DIASTOLIC mm[Hg] 2019-05-12 18:10:26 80 mm[Hg] mm[Hg] Method: Stand PULSE 2019-05-12 18:10:26 68 /min /min RESP RATE 2019-05-12 18:10:26 16 /min /min TEMP 2019-05-12 18:10:26 98.6 [degF] Procedures This patient has no known procedures. Results This patient has no known results.
--- OUTSIDE RECORDS SUMMARY | 2019-05-30 16:51 | XMS REPORT ---
:1935 Author Organization [facility] Care Team Providers Name Role Phone Unavailable Unavailable Unavailable Problems Condition Condition Condition Status Onset Resolution Last Treating Comments Name Details Category Date Date Treatment Clinician Date Cerebral Cerebral Diagnosis Active Celia infarction, infarction, 1-28 Emmanuel unspecified unspecified [id number] Allergies, Adverse Reactions, Alerts Allergy Allergy Status [...]
--- OUTSIDE RECORDS SUMMARY | 2019-05-30 16:51 | XMS REPORT ---
:1935 Author Organization [facility] Care Team Providers Name Role Phone Unavailable Unavailable Unavailable Problems Condition Condition Condition Status Onset Resolution Last Treating Comments Name Details Category Date Date Treatment Clinician Date Hypertensiv Hypertensiv Diagnosis Active 2018-03 Celia e chronic e chronic 2- Emmanuel kidney kidney [id number] disease disease with stage with stage 1 through 1 through stage 4 stage 4 chronic chronic kidney kidney disease, or disease, or unspecified unspecified chronic chronic kidney kidney disease disease 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 [id number] 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 2018-03 Celia kidney kidney 2- Emmanuel disease, disease, [id number] stage 3 stage 3 (moderate) (moderate) Spinal Spinal Diagnosis Active 2018-03 Celia stenosis, stenosis, - Emmanuel cervical cervical [id number] region region 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 Obstructive Obstructive Diagnosis Active 2018-03 Celia sleep apnea sleep apnea 2-26 Emmanuel (adult) (adult) [id number] (pediatric) (pediatric) Morbid Morbid Diagnosis Active Celia (severe) (severe) Emmanuel obesity due obesity due [id number] to excess to excess calories calories Other Other Diagnosis Active Celia insomnia insomnia Emmanuel [id number] Unspecified Unspecified Diagnosis Active Celia glaucoma glaucoma Emmanuel [id number] Other iron 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 [id number] Vitamin Vitamin Diagnosis Active Celia deficiency, deficiency, Emmanuel unspecified unspecified [id number] Hyperlipide Hyperlipide Diagnosis Active Celia prashanth, prashanth, Emmanuel unspecified unspecified [id number] Gastro-esop Gastro-esop Diagnosis Active Celia hageal hageal Emmanuel reflux reflux [id number] disease disease without without esophagitis esophagitis Slow Slow Diagnosis Active Celia transit transit Emmanuel constipatio constipatio [id number] n n Pain in Pain in Diagnosis Active Celia left left Emmanuel shoulder shoulder [id number] Personal Personal Diagnosis Active Celia history of history of Emmanuel transient transient [id number] ischemic ischemic attack attack (TIA), and (TIA), and cerebral cerebral infarction infarction without without residual residual deficits deficits Personal Personal Diagnosis Active Celia history of history of Emmanuel urinary urinary [id number] (tract) (tract) infections infections FPC FPC Diagnosis Active Celia (current) (current) Emmanuel use of use of [id number] opiate opiate analgesic analgesic 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 (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) (current) Emmanuel use of use of [id number] antithrombo antithrombo tics/antipl tics/antipl atelets atelets Other long Other long Diagnosis Active Celia term term Emmanuel (current) (current) [id number] drug drug therapy therapy Pain frequent Pain Mgmt Active 2020-0 Xochitl pain 2-15 (Guerda) 09:00: Kamlesh [id number] Cardio edema Cardiovasc Active 2020-0 Xochitl ular 2-15 (Guerda) 09:00: Kamlesh [id number] Cardio knowledge/s Cardiovasc Active 2020-0 Xochitl kill ular 2-15 (Guerda) deficit: pt 09:00: Kamlesh [id number] Respiratory dyspnea Respirator Active 2020-0 Xochitl present y 2-15 (Guerda) 09:00: Kamlesh [id number] Endo/Patrice anti-coagul Endo/Patrice Active 2020-0 Xochitl ation 2-15 (Guerda) therapy 09:00: Kamlesh [id number] Sensory impaired Sensory Active 2020-0 Xochitl hearing 2-15 (Guerda) 09:00: Kamlesh [id number] Integument skin Integument Active 2020-0 Xochitl integrity 2-15 (Guerda) risk 09:00: Kamlesh [id number] Nutrition nutritional Nutrition Active 2020-0 Xochitl restriction 2-15 (Guerda) s 09:00: Kamlesh [id number] Elimination urinary Eliminatio Active 2020-0 Xochitl incontinenc n 2-15 (Guerda) e 09:00: Kamlesh [id number] Neuro depressive Neuro/Emot Active 2020-0 Xochitl feelings ion 2-15 (Guerda) present 09:00: Whitlock [id number] Neuro impaired Neuro/Emot Active 2020-0 Xochitl decision-ma ion 2-15 (Guerda) bryanna 09:00: Whitlock [id number] Neuro memory Neuro/Emot Active 2020-0 Xochitl deficit ion 2-15 (Guerda) needing 09:00: Kamlesh supervision [id number] Activity ADL Activity Active 2020-0 Xochitl assistance 2-15 (Guerda) required 09:00: Whitlock [id number] Activity self-care Activity Active 2020-0 Xochitl deficit 2-15 (Guerda) 09:00: Kamlesh [id number] Safety fall risk Safety Active 2020-0 Xochitl factor 2-15 (Guerda) present 09:00: Kamlesh [id number] Safety risk for Safety Active 2020-0 Xochitl hospitaliza 2-15 (Guerda) tion 09:00: Kamlesh [id number] Safety can be left Safety Active 2020-0 Xochitl alone for 2-15 (Guerda) only short 09:00: Kamlesh periods [id number] Medication oral med Meds Active 2020-0 Xochitl assistance 2-15 (Guerda) required 09:00: Kamlesh [id number] Medication potential Meds Active 2020-0 Xochitl clinically 2-15 (Guerda) significant 09:00: Kamlesh medication [id number] issue Musculoskel transfer Musculoske Active 2020-0 Xochitl etal assistance letal 2-15 (Guerda) required 09:00: Kamlesh [id number] Musculoskel requires Musculoske Active 2020-0 Xochitl etal human letal 2-15 (Guerda) assist to 09:00: Kamlesh leave home 00 [id number] Pain knowledge/s Pain Mgmt Active 2019- Tho kill 2-17 John deficit: pt 12:03: [id number] ROM ROM PT: ROM Active Tho deficit: UE 2-17 John 12:03: [id number] Strength/To strength PT: Active 0 Tho ne/Motor deficit: LE Strength 2-17 John Control 12:03: [id number] 00 Strength/To knowledge/s PT: Active 2019-0 Tho ne/Motor kill Strength 2-17 John Control deficit LE: 12:03: [id number] pt 00 Bed mobility/tr PT/OT: Bed Active 2020-0 Tho Mobility/Tr ansfer Mobility/T 2-17 John arteaga device ransfer 12:03: [id number] present 00 Bed transfer PT/OT: Bed Active 2020-0 Tho Mobility/Tr deficit: Mobility/T 2-17 John arteaga sit/stand ransfer 12:03: [id number] 00 Bed transfer PT/OT: Bed Active 2020-0 Tho Mobility/Tr deficit: Mobility/T 2-17 Kobkrystin arteaga standing ransfer 12:03: [id number] pivot 00 Bed transfer PT/OT: Bed Active 2020-0 Toh Mobility/Tr deficit: Mobility/T 2-17 Kobkrystin arteaga toilet/comm [facility] 12:03: [id number] ode 00 Bed transfer PT/OT: Bed Active 2020-0 Tho Mobility/Tr deficit: Mobility/T 2-17 John arteaga shower/tub [facility] 12:03: [id number] 00 Bed transfer PT/OT: Bed Active 2020-0 Tho Mobility/Tr deficit: Mobility/T 2-17 John arteaga vehicle ransfer 12:03: [id number] 00 Bed knowledge/s PT/OT: Bed Active 2020-0 Tho Mobility/Tr kill Mobility/T 2-17 John arteaga deficit: pt ransfer 12:03: [id number] 00 Bed bed PT/OT: Bed Active 2020-0 Tho Mobility/Tr mobility Mobility/T 2-17 John arteaga deficit ransfer 12:03: [id number] 00 Balance/End balance/drug safety coordinator PT/OT: Active 2020-0 Tho urance rdination Balance/En 2-17 John deficit durance 12:03: [id number] 00 OT: Self self-care OT: Active 2020-0 Tho Care deficit Self-Care 2-17 John 12:03: [id number] 00 OT: Self knowledge/s OT: Active 2020-0 Tho Care kill Self-Care 2-17 John deficit: pt 12:03: [id number] 00 Gait/Locomo gait PT/OT: Active 2020-0 Tho tion assistive Gait/Locom 2-17 Kobziewicz problems device otion 12:03: [id number] present 00 Gait/Locomo knowledge/s PT/OT: Active Tho tion kill Gait/Locom 2-17 Kobziewicz problems deficit: pt otion 12:03: [id number] 00 Gait/Locomo gait PT/OT: Active Tho tion deficit Gait/Locom 2-17 Kobziewicz problems otion 12:03: [id number] 00 Allergies, Adverse Reactions, Alerts Allergy Name Allergy Status Severity Reaction(s) Onset Inactive Treating Comments Type Date Date Clinician Penicillins Allergen Active Unknown Reaction Sonia Group Unknown 2-15 Kailash [id number] cat dog Unknown Active Unknown Reaction 0 Sonia dander, Unknown 2-15 Kailash perfume,tar, [id number] cigarettes Medications Ordered Filled Start Stop Current [...]
--- OUTSIDE RECORDS SUMMARY | 2019-05-30 16:51 | XMS REPORT ---
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 [id number] 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 2018-03 Celia kidney kidney 2- Emmanuel disease, disease, [id number] stage 3 stage 3 (moderate) (moderate) Spinal Spinal Diagnosis Active 2018-03 Celia stenosis, stenosis, - Emmanuel cervical cervical [id number] region region 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 [place] 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 Obstructive Obstructive Diagnosis Active 2018-03 Celia sleep apnea sleep apnea 2-26 Emmanuel (adult) (adult) [id number] (pediatric) (pediatric) Morbid Morbid Diagnosis Active Celia (severe) (severe) Emmanuel obesity due obesity due [id number] to excess to excess calories calories Other Other Diagnosis Active Celia insomnia insomnia Emmanuel [id number] Unspecified Unspecified Diagnosis Active Celia glaucoma glaucoma Emmanuel [id number] Other iron 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 [id number] Vitamin Vitamin Diagnosis Active Celia deficiency, deficiency, Emmanuel unspecified unspecified [id number] Hyperlipide Hyperlipide Diagnosis Active Celia prashanth, prashanth, Emmanuel unspecified unspecified [id number] Gastro-esop Gastro-esop Diagnosis Active Celia hageal hageal Emmanuel reflux reflux [id number] disease disease without without esophagitis esophagitis Slow Slow Diagnosis Active Celia transit transit Emmanuel constipatio constipatio [id number] n n Pain in Pain in Diagnosis Active Celia left left Emmanuel shoulder shoulder [id number] Personal Personal Diagnosis Active Celia history of history of Emmanuel transient transient [id number] ischemic ischemic attack attack (TIA), and (TIA), and cerebral cerebral infarction infarction without without residual residual deficits deficits Personal Personal Diagnosis Active Celia history of history of Emmanuel urinary urinary [id number] (tract) (tract) infections infections senior care senior care Diagnosis Active Celia (current) (current) Emmanuel use of use of [id number] opiate opiate analgesic 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 (current) (current) Emmanuel use of use of [id number] antithrombo antithrombo tics/antipl tics/antipl atelets atelets Other long Other long Diagnosis Active Celia term term Emmanuel (current) (current) [id number] drug drug therapy therapy Pain frequent Pain Mgmt Active 2020-0 Xochitl pain 2-15 (Guerda) 09:00: Kamlesh [id number] Cardio edema Cardiovasc Active 2020-0 Xochitl ular 2-15 (Guerda) 09:00: Kamlesh [id number] Cardio knowledge/s Cardiovasc Active 2020-0 Xochitl kill ular 2-15 (Guerda) deficit: pt 09:00: Kamlesh [id number] Respiratory dyspnea Respirator Active 2020-0 Xochitl present y 2-15 (Guerda) 09:00: Kamlesh [id number] Endo/Patrice anti-coagul Endo/Patrice Active 2020-0 Xochitl ation 2-15 (Guerda) therapy 09:00: Kamlesh [id number] Sensory impaired Sensory Active 2020-0 Xochitl hearing 2-15 (Guerda) 09:00: Kamlesh [id number] Integument skin Integument Active 2020-0 Xochitl integrity 2-15 (Guerda) risk 09:00: Kamlesh [id number] Nutrition nutritional Nutrition Active 2020-0 Xochitl restriction 2-15 (Guerda) s 09:00: Kamlesh [id number] Elimination urinary Eliminatio Active 2020-0 Xochitl incontinenc n 2-15 (Guerda) e 09:00: Kamlesh [id number] Neuro depressive Neuro/Emot Active 2020-0 Xochitl feelings ion 2-15 (Guerda) present 09:00: Whitlock [id number] Neuro impaired Neuro/Emot Active 2020-0 Xochitl decision-ma ion 2-15 (Guerda) bryanna 09:00: Whitlock [id number] Neuro memory Neuro/Emot Active 2020-0 Xochitl deficit ion 2-15 (Guerda) needing 09:00: Kamlesh supervision [id number] Activity ADL Activity Active 2020-0 Xochitl assistance 2-15 (Guerda) required 09:00: Whitlock [id number] Activity self-care Activity Active 2020-0 Xochitl deficit 2-15 (Guerda) 09:00: Kamlesh [id number] Safety fall risk Safety Active 2020-0 Xochitl factor 2-15 (Guerda) present 09:00: Kamlesh [id number] Safety risk for Safety Active 2020-0 Xochitl hospitaliza 2-15 (Guerda) tion 09:00: Kamlseh [id number] Safety can be left Safety Active 2020-0 Xochitl alone for 2-15 (Guerda) only short 09:00: Kamlesh periods [id number] Medication oral med Meds Active 2020-0 Xochitl assistance 2-15 (Guerda) required 09:00: Kamlesh [id number] Medication potential Meds Active 2020-0 Xochitl clinically 2-15 (Guerda) significant 09:00: Kamlesh medication [id number] issue Musculoskel transfer Musculoske Active 2020-0 Xochitl etal assistance letal 2-15 (Guerda) required 09:00: Kamlesh [id number] Musculoskel requires Musculoske Active 2020-0 Xochitl etal human letal 2-15 (Guerda) assist to 09:00: Kamlesh leave home 00 [id number] Pain knowledge/s Pain Mgmt Active 2019- Tho kill 2-17 John deficit: pt 12:03: [id number] ROM ROM PT: ROM Active Tho deficit: UE 2-17 John 12:03: [id number] 00 Strength/To strength PT: Active 0 Tho ne/Motor deficit: LE Strength 2-17 John Control 12:03: [id number] 00 Strength/To knowledge/s PT: Active 2019-0 Tho ne/Motor kill Strength 2-17 John Control deficit LE: 12:03: [id number] pt 00 Bed mobility/tr PT/OT: Bed Active 2020-0 Tho Mobility/Tr ansfer Mobility/T 2-17 John arteaga device ransfer 12:03: [id number] present 00 Bed transfer PT/OT: Bed Active 2020-0 Tho Mobility/Tr deficit: Mobility/T 2-17 John arteaga sit/stand ransfer 12:03: [id number] 00 Bed transfer PT/OT: Bed Active 2020-0 Tho Mobility/Tr deficit: Mobility/T 2-17 Kobkrystin arteaga standing ransfer 12:03: [id number] pivot 00 Bed transfer PT/OT: Bed Active 2020-0 Tho Mobility/Tr deficit: Mobility/T 2-17 Kobkrystin arteaga toilet/[facility] 12:03: [id number] ode 00 Bed transfer PT/OT: Bed Active 2020-0 Tho Mobility/Tr deficit: Mobility/T 2-17 John arteaga shower/tub [facility] 12:03: [id number] 00 Bed transfer PT/OT: Bed Active 2020-0 Tho Mobility/Tr deficit: Mobility/T 2-17 John arteaga vehicle ransfer 12:03: [id number] 00 Bed knowledge/s PT/OT: Bed Active 2020-0 Tho Mobility/Tr kill Mobility/T 2-17 John arteaga deficit: pt ransfer 12:03: [id number] 00 Bed bed PT/OT: Bed Active 2020-0 Tho Mobility/Tr mobility Mobility/T 2-17 John arteaga deficit ransfer 12:03: [id number] 00 Balance/End balance/donor relations coordinator PT/OT: Active 2020-0 Tho urance rdination Balance/En 2-17 John deficit durance 12:03: [id number] 00 OT: Self self-care OT: Active 2020-0 Tho Care deficit Self-Care 2-17 John 12:03: [id number] 00 OT: Self knowledge/s OT: Active 2020-0 Tho Care kill Self-Care 2-17 John deficit: pt 12:03: [id number] 00 Gait/Locomo gait PT/OT: Active 2020-0 Tho tion assistive Gait/Locom 2-17 Kobziewicz problems device otion 12:03: [id number] present 00 Gait/Locomo knowledge/s PT/OT: Active Tho tion kill Gait/Locom 2-17 Kobziewicz problems deficit: pt otion 12:03: [id number] 00 Gait/Locomo gait PT/OT: Active Tho tion deficit Gait/Locom 2-17 Kobziewicz problems otion 12:03: [id number] 00 Allergies, Adverse Reactions, Alerts Allergy Name Allergy Status Severity Reaction(s) Onset Inactive Treating Comments Type Date Date Clinician Penicillins Allergen Active Unknown Reaction Sonia Group Unknown 2-15 Kailash [id number] cat dog Unknown Active Unknown Reaction 0 Sonia dander, Unknown 2-15 Kailash perfume,tar, [id number] cigarettes Medications Ordered Filled Start Stop Current [...]
--- OUTSIDE RECORDS SUMMARY | 2019-05-30 16:51 | XMS REPORT ---
:1935 Author Organization [facility] Care Team Providers Name Role Phone Unavailable Unavailable Unavailable Problems Condition Condition Condition Status Onset Resolution Last Treating Comments Name Details Category Date Date Treatment Clinician Date Cerebral Cerebral Diagnosis Active Celia infarction, infarction, 1-28 Emmanuel unspecified unspecified [id number] Allergies, Adverse Reactions, Alerts Allergy Allergy Status [...]
--- OUTSIDE RECORDS SUMMARY | 2019-05-30 16:51 | XMS REPORT ---
:1935 Author Organization [facility] Care Team Providers Name Role Phone Unavailable Unavailable Unavailable Problems Condition Condition Condition Status Onset Resolution Last Treating Comments Name Details Category Date Date Treatment Clinician Date Cerebral Cerebral Diagnosis Active 2020-0 Celia infarction, infarction, 1-28 Emmanuel unspecified unspecified [id number] Pain frequent Pain Mgmt Active 2020-0 Xochitl pain 2-15 (Guerda) 09:00: Kamlesh [id number] Cardio edema Cardiovasc Active 2020-0 Xochitl ular 2-15 (Guerda) 09:00: Kamlesh [id number] Cardio knowledge/s Cardiovasc Active 2020-0 Xochitl kill ular 2-15 (Guerda) deficit: pt 09:00: Kamlesh [id number] Respiratory dyspnea Respirator Active 2020-0 Xochitl present y 2-15 (Guerda) 09:00: Kamlesh [id number] Endo/Patrice anti-coagul Endo/Patrice Active 2020-0 Xochitl ation 2-15 (Guerda) therapy 09:00: Kamlesh [id number] Sensory impaired Sensory Active 2020-0 Xochitl hearing 2-15 (Guerda) 09:00: Kamlesh [id number] Integument skin Integument Active 2020-0 Xochitl integrity 2-15 (Guerda) risk 09:00: Kamlesh [id number] Nutrition nutritional Nutrition Active 2020-0 Xohcitl restriction 2-15 (Guerda) s 09:00: Kamlesh [id number] Elimination urinary Eliminatio Active 2020-0 Xochitl incontinenc n 2-15 (Guerda) e 09:00: Kamlesh [id number] Neuro depressive Neuro/Emot Active 2020-0 Xochitl feelings ion 2-15 (Guerda) present 09:00: Kamlesh [id number] Neuro impaired Neuro/Emot Active 2020-0 Xochitl decision-ma ion 2-15 (Guerda) bryanna 09:00: Kamlesh [id number] Neuro memory Neuro/Emot Active 2020-0 Xochitl deficit ion 2-15 (Guerda) needing 09:00: Whitlock supervision [id number] Activity ADL Activity Active 2020-0 Xochitl assistance 2-15 (Guerda) required 09:00: Whitlock [id number] Activity self-care Activity Active 2020-0 Xochitl deficit 2-15 (Guerda) 09:00: Whitlock [id number] Safety fall risk Safety Active 2020-0 Xochitl factor 2-15 (Guerda) present 09:00: Whitlock [id number] Safety risk for Safety Active 2020-0 Xochitl hospitaliza 2-15 (Guerda) tion 09:00: Whitlock [id number] Safety can be left Safety Active 2020-0 Xochitl alone for 2-15 (Guerda) only short 09:00: Whitlock periods [id number] Medication oral med Meds Active 2020-0 Xochitl assistance 2-15 (Guerda) required 09:00: Whitlock [id number] Medication potential Meds Active 2019-0 Xochitl clinically 2-15 (Guerda) significant 09:00: Kamlesh medication [id number] issue Musculoskel transfer Musculoske Active 2020-0 Xochitl etal assistance letal 2-15 (Guerda) required 09:00: Whitlock [id number] Musculoskel requires Musculoske Active 2020-0 Xochitl etal human letal 2-15 (Guerda) assist to 09:00: Kamlesh leave home [id number] Pain knowledge/s Pain Mgmt Active Tho jacob 2-17 John deficit: pt 12:03: [id number] 00 ROM ROM PT: ROM Active 0 Tho deficit: UE 2-17 John 12:03: [id number] 00 Strength/To strength PT: Active 2019-0 Tho ne/Motor deficit: LE Strength 2-17 John Control 12:03: [id number] 00 Strength/To knowledge/s PT: Active 2020-0 Tho ne/Motor kill Strength 2-17 John Control deficit LE: 12:03: [id number] pt 00 Bed mobility/tr PT/OT: Bed Active 2020-0 Tho Mobility/Tr ansfer Mobility/T 2-17 John ansfer device ransfer 12:03: [id number] present 00 Bed transfer PT/OT: Bed Active 2020-0 Tho Mobility/Tr deficit: Mobility/T 2-17 Kobstanfabiola ferreirafarhat sit/stand ransfer 12:03: [id number] 00 Bed transfer PT/OT: Bed Active 2020-0 Tho Mobility/Tr deficit: Mobility/T 2-17 Kobstanewessence ansfer standing ransfer 12:03: [id number] pivot 00 Bed transfer PT/OT: Bed Active 2020-0 Tho Mobility/Tr deficit: Mobility/T 2-17 Kobstanewessence [facility]aga toilet[facility] 12:03: [id number] ode 00 Bed transfer PT/OT: Bed Active 2020-0 Tho Mobility/Tr deficit: Mobility/T 2-17 Kobstanewessence arteaga shower[facility] 12:03: [id number] 00 Bed transfer PT/OT: Bed Active 2020-0 Tho Mobility/Tr deficit: Mobility/T 2-17 Kobkrystin [facility] 12:03: [id number] 00 Bed knowledge/s PT/OT: Bed Active 2020-0 Tho Mobility/Tr kill Mobility/T 2-17 John arteaga deficit: [facility] 12:03: [id number] 00 Bed bed PT/OT: Bed Active 2020-0 Tho Mobility/Tr mobility Mobility/T 2-17 Kobstanstevenessence jhonfarhat [facility] 12:03: [id number] 00 Balance/End balance/clinic coordinator PT/OT: Active 2020-0 Tho urance rdination Balance/En 2-17 Kobziewicz deficit durance 12:03: [id number] 00 OT: Self self-care OT: Active 2020-0 Tho Care deficit Self-Care 2-17 Kobziewicz 12:03: [id number] 00 OT: Self knowledge/s OT: Active 2020-0 Tho Care kill Self-Care 2-17 Kobziewicz deficit: pt 12:03: [id number] 00 Gait/Locomo gait PT/OT: Active 2020-0 Tho tion assistive Gait/Locom 2-17 Kobziewicz problems device otion 12:03: [id number] present 00 Gait/Locomo knowledge/s PT/OT: Active 2020-0 Tho tion kill Gait/Locom 2-17 Kobziewicz problems deficit: pt otion 12:03: [id number] 00 Gait/Locomo gait PT/OT: Active 2019-0 Tho tion deficit Gait/Locom 2-17 Kobstanewicz problems otion 12:03: [id number] 00 Allergies, Adverse Reactions, Alerts Allergy Name Allergy Status Severity Reaction(s) Onset Inactive Treating Comments Type Date Date Clinician Penicillins Allergen Active Unknown Reaction 2019-0 Sonia Group Unknown 2-15 Kailash [id number] cat dog Unknown Active Unknown Reaction 2019-0 Sonia dander, Unknown 2-15 Kailash perfume,tar, [id number] cigarettes Medications Ordered Filled Start Stop Current [...]
[2019-05-30 17:32] LABS: AST 19 U/L (13-39); Anion Gap 10 mmol/L (2-11); Potassium 4.2 mmol/L (3.5-5.0)
[2019-05-30] MEDS ORDERED: hydrALAZINE IV* 20 MG/ML VIAL IV SLOW PU ONE (18:22)
[2019-05-30 19:18] LABS: Influenza A Molecular Negative (Negative); Influenza B Molecular Negative (Negative)
[2019-05-30 19:54] LABS: Magnesium 2.3 mg/dL (1.9-2.7)
[2019-05-30] MEDS ORDERED: Albuterol 2.5 MG/3 ML NEB.SOL* (0.083%) INH PRN (20:03)
[2019-05-30] MEDS ORDERED: oxyCODONE/Acetamin 5/325 MG* TAB PO PRN (20:06)
--- NOTE | 2019-05-30 20:14 | CONS ---
NEUROLOGY CONSULTATION NOTE: DATE OF CONSULT: 05/30/19 CONSULTING PROVIDER: Dr. Baxter. REASON FOR CONSULT: Confusion. CHIEF COMPLAINT: Tremulous. HISTORY OF PRESENT ILLNESS: Ms. Neris Aguirre is a pleasant 83-year-old right- handed female who I have evaluated in February 2019 as well as December 2017. The patient has a history of left frontal ischemic stroke, lumbar spine degenerative disk disease with bilateral chronic lower extremity weakness due to severe stenosis at L2-L3 and moderate at L4-L5, who presented to [facility] ER via EMS after she was being found confused this morning. The patient stated that she went out to her granddaughter's house last night. She came home. She lives alone. She was last known normal at 11 p.m. on 05/29/19. She came to the ED today after she woke up with symptoms of tremulousness. Her arms were shaky. She is awake during this. She denied any convulsion. She denied any tongue biting. She has uncontrolled shaking of the arms, more of a negative myoclonus like jerks. She denies any headaches. She did endorse bilateral blurred vision at one point today. She has never had similar symptoms in the past. She was just here admitted to the hospital last February for lower extremity weakness. Family refused evaluation for large vessel occlusion and tPA was not given at that time. She was discharged with the diagnosis of frequent falls and to follow up with her primary care doctor and Dr. Calixto. PAST MEDICAL HISTORY: Iron deficiency anemia; diverticulitis, status post colon resection; bilateral knee replacement; degenerative shoulders, status post shoulder surgeries; hysterectomy; and left frontal stroke. MEDICATIONS: 1. Omeprazole 20 mg p.o. b.i.d. 2. Valacyclovir 500 mg p.o. b.i.d. 3. Ferrous sulfate 325 mg p.o. in the morning. 4. Docusate 100 mg p.o. in the morning. 5. Nitroglycerin 0.4 mg every 5 minutes as needed. 6. Magnesium hydroxide 30 mL p.o. every 4 hours as needed. 7. Calcium carbonate 600 mg p.o. b.i.d. 8. Baclofen 10 mg p.o. b.i.d. 9. Gabapentin 100 mg p.o. t.i.d. 10. Oxycodone and acetaminophen 5/325 one to two tablets p.o. t.i.d. 11. Atorvastatin 20 mg at night. 12. Senna 1 tablet p.o. in the morning. 13. Cranberry fruit 2 caps p.o. daily. 14. Duloxetine 30 mg p.o. daily. 15. Aspirin 81 mg daily. 16. Loratadine 10 mg p.o. daily. 17. Diltiazem 240 mg daily. 18. Hydralazine 10 mg p.o. t.i.d. 19. Acetaminophen 650 mg p.o. b.i.d. 20. Lisinopril 10 mg p.o. in the morning. DRUG ALLERGIES: PENICILLIN. FAMILY HISTORY: Mother has diabetes. Brother has a history of cancer. Negative for stroke or seizures. SOCIAL HISTORY: She does not use tobacco or alcohol use. She lives in [facility]. REVIEW OF SYSTEMS: Review of systems was unable to be obtained due to the patient's lethargy and minimal cooperation with the examiner. PHYSICAL EXAM: Vitals: Temperature of 97.8, heart rate of 55, respiratory rate of 9, blood pressure of 184/90 but when she presented her blood pressure was 137/114. General: Ill-appearing, obese female who is not cooperating as well, but can say few sentences. Head: Atraumatic, normocephalic without any obvious injuries. Eyes: Subconjunctival injection bilaterally. Neck is supple and symmetrical with no carotid bruits. Cardiovascular: Regular rate and rhythm with normal S1, S2. Chest: Diminished breath sounds in the bibasilar area bilaterally. Extremities: Normal range of motion with no cyanosis or edema. Skin: No skin lesions or laceration. Psych: Flat affect, slightly depressed mood. Neurological Examination: Mental Status: She is drowsy, she can easily awake but appears encephalopathic. She responds to name calling. She nods yes or no. She can say 2- to 3-word sentences only. She is alert to self and place, but not time. She did mention that she is in the hospital, but did not know the name of the hospital. Cranial Nerves: Pupils equal, round, reactive to light. Extraocular muscles intact. There is normal sensation in the face. There is no facial asymmetry. Tongue is symmetric and midline with no atrophy or fasciculation. The patient has slight very subtle facial droop, which is apparent when she lies flat and improves when she is sitting upright. Motor Examination: She is able to lift both upper extremities to command antigravity. She cannot left either of lower extremities, she tried, but was unable to do so. She has slightly increased tone in the lower extremities bilaterally. This was compared to a previous examination where she has had weakness on the lower extremities bilaterally. Sensation is intact to light touch in the face and arms bilaterally. Coordination was unable to be performed. She has negative asterixis, right worse than left. Gait: Did not assess due to the patient's baseline mobility. She does require a walker to ambulate. LABS/IMAGING/OTHER DIAGNOSTIC TESTING: WBCs 8.4, hemoglobin of 11, hematocrit of 35, platelets of 262. INR is 0.87. ABG showed a pH of 7.43, pCO2 of 44, pO2 of 76, HCO3 of 28. Sodium of 141, BUN of 42, creatinine is 2.35, calcium of 10, ammonia of 50, LDL 77, alcohol level is less than 10. CT of the head showed no evidence of acute intracranial abnormality. I personally reviewed the study. Chest x-ray showed no acute cardiopulmonary process. ASSESSMENT AND RECOMMENDATIONS: Ms. 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 Her last known well time was yesterday, 05/29/19 at 11 p.m. The patient's main complaint is tremulousness and confusion. 1. Acute toxic-metabolic encephalopathy in the setting of slightly worsening kidney function, gabapentin, baclofen, and narcotic use. Other etiology include mild hypoxic encephalopathy. The patient seemed to slightly be improving in the ER. I wonder if it's because she has received a bolus of 1 L of IV fluid. I do not see any lateralizing neurological deficits. The slight facial asymmetry is not a concerning finding, especially in someone who has a history of left frontal stroke. Recrudescence of stroke symptoms in the setting of toxic-metabolic encephalopathy could explain her symptoms. I did not want to take the route of working her up for stroke given the low suspicion and the other potential causes for her encephalopathy. I recommend continuing IV fluids. Please obtain a vitamin B12 level. Cut down the baclofen dose to 5 mg twice a day. She is not on a high dose of gabapentin, therefore, we can continue the same dose of 100 mg 3 times a day. Consult PT to evaluate and treat. If her symptoms do not improve or she worsens, then the patient will need either a repeat CT or obtain an MRI of the brain without contrast to evaluate for a structure abnormality versus small strokes. She would also need an EEG to evaluate for the degree of encephalopathy, if she does not clinically improve. Continue her antiplatelet and statin therapy. Supply her with oxygenation given the slight drop in pO2 on her ABG. Make sure we have a urinalysis on her. Please contact me for any questions or concerns. [id number]/[facility] #: [id number] LESLIE
[2019-05-30] MEDS ORDERED: Gabapentin CAP(*) 100 MG PO SCH (21:00)
[2019-05-30] MEDS: Magnesium Hydroxide LIQ* 30 ML UDC PO PRN (22:38)
[2019-05-30] MEDS: Diltiazem CD CAP* 240 MG PO SCH (22:38)
[2019-05-30] MEDS: Calcium Carbonate TAB* 1250 MG (CALCIUM 500 MG) PO SCH (22:38)
[2019-05-30] MEDS: Senna TAB 8.6 mg* TAB PO PRN (22:39)
[2019-05-30] MEDS: Pantoprazole TAB * 40 MG TAB PO SCH (22:39)
[2019-05-30] MEDS: hydrALAZINE TAB* 10 MG PO SCH (22:39)
[2019-05-31] MEDS: Latanoprost 0.005%* 2.5 ml BTL BOTH EYES SCH ×2 (00:28→20:20)
[2019-05-31] MEDS: Heparin VIAL(*) 5000 UNITS/ML VIAL (FIVE THOUSAND) SUBCUT SCH ×4 (00:28→20:21)
[2019-05-31 01:14] LABS: Urine Appearance Cloudy; Urine Bilirubin Negative (Negative); Urine Blood Negative (Negative); Urine Color Yellow; Urine Glucose Negative (Negative); Urine Ketones Negative (Negative); Urine Nitrite Negative (Negative); Urine Protein Negative (Negative); Urine Specific Gravity 1.012 (1.010-1.030); Urine Urobilinogen Negative (Negative)
--- NOTE | 2019-05-31 01:14 | HP ---
CC: BLACK Pompa * HISTORY AND PHYSICAL: DATE OF ADMISSION: 05/30/19 PROVIDER: Rachel Medellin NP ATTENDING PHYSICIAN WHILE IN THE HOSPITAL: Dr. Echevarria.* (DICTATED BY RACHEL MEDELLIN NP) CHIEF COMPLAINT: 1. Shortness of breath. 2. "I could not hear my son talking." HISTORY OF PRESENT ILLNESS: Ms. Aguirre is an 83-year-old female with past medical history significant for coronary artery disease; diabetes, diet controlled; hypertension; hyperlipidemia; chronic kidney disease, who presented to the ER with complaints of "I could not hear my son talking." "I told him to bring me to the emergency room." The patient reports that she was feeling poorly and also reported some shortness of breath. Initially, the patient was reported as a Code Garcia. She was met by Dr. Mccarty and the emergency room physician and Code Garcia was canceled. The patient denies any chest pain or headaches. She is a poor historian. The patient does report some shortness of breath and just not feeling well today. The patient reports that she feels weak. The patient denies chest pain or edema. Denies any nausea, vomiting, diarrhea, abdominal pain, hematuria, dysuria. Denies any focal weakness or sensory loss. She does report left and right leg pain. She denies any rashes, lesions, open sores, psychosis or anxiety. While in the emergency room, the patient had routine lab work drawn. CBC was essentially within normal limits with the exception of RBCs of 3.65 and hemoglobin of 11.2. Her creatinine was elevated above her baseline of 1.38, today it was 2.35. Influenza A and B were negative. The patient was found be hypertensive in the emergency room with a blood pressure in the 190s to 208 systolically. Due to these findings, Hospital Medicine was asked to evaluate for admission. PAST MEDICAL HISTORY: Significant for: 1. Coronary artery disease. 2. Diabetes, non-insulin dependent, diet controlled. 3. Hypertension. 4. Hyperlipidemia. 5. Chronic kidney disease stage 3. 6. Obstructive sleep apnea. 7. Chronic shoulder pain. 8. Iron deficiency anemia. PAST SURGICAL HISTORY: 1. Colon resection. 2. Bilateral knee replacement. 3. Hysterectomy. HOME MEDICATIONS: Include: 1. Aspirin 81 mg p.o. daily. 2. Atorvastatin 20 mg p.o. at bedtime. 3. Baclofen 10 mg p.o. b.i.d. 4. Calcium carbonate 600 mg p.o. b.i.d. 5. Cod liver oil 1 cap p.o. daily. 6. Diltiazem 240 mg p.o. daily. 7. Docusate 100 mg p.o. daily. 8. Ferrous sulfate 325 mg p.o. daily. 9. Furosemide 20 mg p.o. daily. 10. Gabapentin 100 mg p.o. t.i.d. 11. Hydralazine 10 mg p.o. t.i.d. 12. Travatan 0.004% 1 drop to both eyes at bedtime. 13. Omeprazole 20 mg b.i.d. 14. Percocet 5/325 one to two tablets t.i.d. as needed for pain. 15. Valtrex 500 mg p.o. b.i.d. 16. Lisinopril 10 mg p.o. q.a.m. 17. Nitro 0.4 mg sublingual q.5 minutes p.r.n. 18. Calcium carbonate 600 mg p.o. b.i.d. 19. Milk of mag 30 mL q.4 hours as needed. 20. Claritin 10 mg p.o. daily. 21. Multivitamin 1 tablet p.o. daily. ALLERGIES: PENICILLIN. FAMILY HISTORY: Mother had diabetes. The patient's brother and sister with history of cancer. Negative for CVA or heart disease. SOCIAL HISTORY: The patient is a former smoker. She does not use any alcohol. She denies any illicit drug use. She lives at [facility]. In the event she is unable to make her own medical decision, she has appointed her son, Stephen Perdomo, to be her surrogate decision maker. She is a full code. REVIEW OF SYSTEMS: A 14-point review of systems was completed. All pertinent positives are mentioned in the HPI. Otherwise were negative. PHYSICAL EXAMINATION GENERAL: At this time, Ms. Aguirre is a well-developed, well-nourished, older black woman who is sitting in her hospital bed. She is in no acute distress. HEENT: Head is atraumatic, normocephalic. Eyes, EOMs are intact. Sclerae anicteric and not pale. Oral mucosa is moist. NECK: Supple. LUNGS: Clear to auscultation bilaterally. No wheezes, rales or rhonchi. CARDIAC: S1, S2. Regular rate and rhythm. No rubs or gallops. ABDOMEN: Obese, soft and nontender. Bowel sounds are present x4. EXTREMITIES: She is able to to move all 4 extremities. There is no clubbing or cyanosis. Pedal pulses are 1+ bilaterally. NEUROLOGIC: She is awake, alert, oriented x3. Speech is clear. Thought process is intact. SKIN: Intact. DIAGNOSTIC STUDIES/LAB DATA: WBCs are 8.4, RBCs 3.65, hemoglobin 11.2, hematocrit 35, platelet count 262. INR 0.87. APTT was 22.9. ABG was 7.43, pCO2 was 44, pO2 was 76, HCO3 was 28.2. ABG O2 saturation 98.8. Sodium 141, potassium 4.2, chloride 102, carbon dioxide was 29, anion gap was 10, BUN was 42 , creatinine 2.35, glucose was 91, lactic acid 0.8, calcium 10.5, magnesium was 2.3. Total bilirubin 0.50, ASTs were 19, ALTs were 13, alkaline phosphatase was 76, ammonia was 50. Troponin was 0.01 x2. Cholesterol 172, LDL was 77, HDL was 71.3. Serum alcohol is less than 10. Influenza A and B were both negative. She had a CT of the brain, no acute intracranial pathology. She had an electrocardiogram which showed sinus rhythm at a rate of 62, right bundle-branch block. She had a chest x-ray, no active cardiopulmonary disease. IMPRESSION AND PLAN: Ms. Aguirre is an 83-year-old female with a past medical history significant for coronary artery disease; diabetes, non-insulin dependent , diet controlled; hypertension; hyperlipidemia; chronic kidney disease stage 3 ; chronic shoulder pain; and iron deficiency anemia, who presented to the emergency room with complaints of "I could not hear my son talking" and shortness of breath. She will be admitted under observation for: 1. Hypertensive urgency. The patient is hypertensive in the emergency room with a systolic blood pressure of 190 to 208. The patient reports she did not take her blood pressure medicines today. I will resume her blood pressure medications and continue to monitor her blood pressure. The patient is denying any dizziness or headache at this time. 2. Reported chest pain. The patient is a poor historian. The patient was questioned several times about chest pain, the patient continues to deny any chest pain. At this point, her troponins are negative. I do not feel the patient needs any further workup as she continues to deny ever having chest pain with any episode today. 3. Hyperlipidemia. She is to continue on atorvastatin as previously prescribed. 4. Acute kidney injury on chronic kidney disease. I suspect the patient is mildly dehydrated as her BUN and creatinine is above baseline. I am going to hold her lisinopril. She did receive 1 L of normal saline in the emergency room. I will repeat a BMP in the a.m. and continue to trend her BUN and creatinine. 5. FEN: She can have a consistent carb diet. 6. Code status: She is a full code. 7. DVT prophylaxis: I will place her on Lovenox subcu. TIME SPENT: Time spent on this admission was 60 minutes, greater than half that time was spent at the bedside reviewing events leading thus far to her hospitalization, performing physical exam, and reviewing my plan of care. I have discussed this with my attending, Dr. Echevarria; he is in agreement with my plan. RACHEL MEDELLIN, FABI [id number]/[facility] #: [id number] LESLIE
[2019-05-31 01:21] LABS: Urine Benzodiazepine Screen None Detected (None Detect); Urine Opiates Screen None Detected (None Detect)
[2019-05-31 01:22] LABS: Urine Bacteria 3+ (Absent); Urine Red Blood Cell Absent (Absent); Urine Squamous Epithelial Cell Present (Absent); Urine White Blood Cell 3+(>20/hpf) (Absent)
[2019-05-31 06:07] LABS: ABS Eosinophils 0.3 10^3/ul (0-0.6); ABS Lymphocytes 1.1 10^3/ul (1.0-4.8); ABS Monocytes 0.5 10^3/ul (0-0.8); Eosinophil % 3.8 %; Hematocrit 35 % (35-47); Hemoglobin 11.4 g/dL (12.0-16.0); Lymphocyte % 15.8 %; Mean Corpuscular HGB Conc 33 g/dL (31-36); Mean Corpuscular Hemoglobin 31 pg (27-31); Mean Corpuscular Volume 94 fL (80-97); Mean Platelet Volume 7.1 fL (7.4-10.4); Platelet Count 267 10^3/uL (150-450); Red Blood Count 3.69 10^6 /uL (3.70-4.87); Red Cell Distribution Width 15 % (10-15)
[2019-05-31 06:22] LABS: BUN/Creatinine Ratio 22.9 (8-20); Calcium 9.7 mg/dL (8.6-10.3); EGFR African American 42.3 (>60); EGFR Non-African American 34.9 (>60); Potassium 3.8 mmol/L (3.5-5.0)
[2019-05-31] MEDS: Acetaminophen TAB* 325 MG PO PRN ×4 (06:24→20:23)
[2019-05-31 06:57] LABS: TSH (Thyroid Stimulating Horm) 1.13 mcIU/mL (0.34-5.60)
[2019-05-31] MEDS: Calcium Carbonate TAB* 1250 MG (CALCIUM 500 MG) PO SCH ×2 (09:45→20:25)
[2019-05-31] MEDS: DULoxetine DR CAP* 30 MG CAP.DR PO SCH (09:46)
[2019-05-31] MEDS: Diltiazem CD CAP* 240 MG PO SCH (09:46)
[2019-05-31] MEDS: hydrALAZINE TAB* 10 MG PO SCH ×2 (09:46→14:06)
[2019-05-31] MEDS: Aspirin EC TAB* 81 MG TAB.EC PO SCH (09:46)
[2019-05-31] MEDS: Pantoprazole TAB * 40 MG TAB PO SCH ×2 (09:46→20:26)
[2019-05-31] MEDS: Multivitamins/Minerals TAB PO SCH (09:46)
[2019-05-31] MEDS: Docusate CAP* 100 MG PO SCH (09:46)
[2019-05-31] MEDS: Ferrous Sulfate TAB* 325 MG PO SCH (09:47)
[2019-05-31] MEDS: Cetirizine* 10 MG TAB PO SCH (09:47)
[2019-05-31] MEDS: Magnesium Hydroxide LIQ* 30 ML UDC PO PRN ×2 (09:54→15:33)
[2019-05-31] MEDS: Senna TAB 8.6 mg* TAB PO PRN ×2 (09:54→15:33)
[2019-05-31] MEDS: Gabapentin CAP(*) 100 MG PO SCH ×2 (10:00→20:24)
[2019-05-31] MEDS ORDERED: Acetaminophen TAB* 325 MG PO PRN (10:02)
[2019-05-31] MEDS ORDERED: Polyethylene Glycol 3350* 17 GM PACKET PO ONE (10:03)
[2019-05-31] MEDS ORDERED: Sodium Phosphate ADULT ENEMA* 118 ml bottle PR PRN (10:04)
--- NOTE | 2019-05-31 10:14 | PN ---
Subjective Date of Service: 05/31/19 Interval History: Has not had a bowel movement in 6 days whereas she normally goes every day. Feels bloated, no changes in appetite, denies nausea. Denies changes in her vision, headaches, chest pain, palpitations, abdominal pain, issues urinating. There is a concern from nursing, who spoke with [facility], that the patient is not getting the support she needs at home with regards to general care. Family History: Unchanged from Admission Social History: Unchanged from Admission Past Medical History: Unchanged from Admission Objective Active Medications: Acetaminophen (Tylenol Tab*) 650 mg PO Q4H PRN PRN Reason: MILD PAIN or TEMP > 100.4 Last Admin: 05/31/19 06:24 Dose: 650 mg Acetaminophen (Tylenol Tab*) 650 mg PO BID PRN PRN Reason: PAIN - MODERATE Albuterol (Ventolin 2.5 Mg/3 Ml Neb.Josy*) 2.5 mg INH [id number] AWAKE PRN PRN Reason: sob/wheezing Aspirin (Aspirin Ec Tab*) 81 mg PO DAILY [facility] Last Admin: 05/31/19 09:46 Dose: 81 mg Atorvastatin Calcium (Lipitor*) 20 mg PO QPM [facility] Bisacodyl (Dulcolax Supp*) 10 mg RI DAILY PRN PRN Reason: CONSTIPATION Calcium Carbonate (Calcium Carbonate Tab*) 625 mg PO BID [facility] Last Admin: 05/31/19 09:45 Dose: 625 mg Cetirizine HCl (Zyrtec*) 10 mg PO DAILY [facility] Last Admin: 05/31/19 09:47 Dose: 10 mg Diltiazem HCl (Cardizem Cd Cap*) 240 mg PO DAILY [facility] Last Admin: 05/31/19 09:46 Dose: 240 mg Docusate Sodium (Colace Cap*) 100 mg PO QAM [facility] Last Admin: 05/31/19 09:46 Dose: 100 mg Duloxetine HCl (Cymbalta Cap*) 30 mg PO DAILY [facility] Last Admin: 05/31/19 09:46 Dose: 30 mg Ferrous Sulfate (Ferrous Sulfate Tab*) 325 mg PO QAM [facility] Last Admin: 05/31/19 09:47 Dose: 325 mg Gabapentin (Neurontin Cap(*)) 100 mg PO BID [facility] Last Admin: 05/31/19 10:00 Dose: 100 mg Heparin Sodium (Porcine) (Heparin Vial(*)) 5,000 units SUBCUT Q8HR [facility] Last Admin: 05/31/19 06:25 Dose: 5,000 units Hydralazine HCl (Apresoline Tab*) 10 mg PO TID [facility] Last Admin: 05/31/19 09:46 Dose: 10 mg Sodium Chloride (Ns 0.9% 1000 Ml) 1,000 mls @ 100 mls/hr IV PER RATE [facility] Stop: 05/31/19 20:14 Latanoprost (Xalatan 0.005%*) 1 drop BOTH EYES BEDTIME [facility]; Protocol Last Admin: 05/31/19 00:28 Dose: 1 drop Magnesium Hydroxide (Milk Of Magnesia Liq*) 30 ml PO Q4H PRN PRN Reason: CONSTIPATION Last Admin: 05/31/19 09:54 Dose: 30 ml Multivitamins/Minerals (Theragran/Minerals Tab*) 1 tab PO QAM [facility] Last Admin: 05/31/19 09:46 Dose: 1 tab Pantoprazole Sodium (Protonix Tab*) 40 mg PO BID [facility] Last Admin: 05/31/19 09:46 Dose: 40 mg Polyethylene Glycol/Electrolytes (Miralax (17 Gm Dose Zane)) 17 gm PO ONCE ONE Stop: 05/31/19 10:04 Senna (Senokot 8.6 Mg Tab*) 1 tab PO QAM PRN PRN Reason: constipation Last Admin: 05/31/19 09:54 Dose: 1 tab Sodium Biphosphate/Sodium Phosphate (Fleet Enema*) 1 bottle RI DAILY PRN PRN Reason: CONSTIPATION Vital Signs - 8 hr 05/31/19 05/31/19 05/31/19 03:15 04:00 10:00 Temperature 98.3 F Pulse Rate 67 Respiratory 22 17 Rate Blood Pressure 148/63 (mmHg) O2 Sat by Pulse 100 98 Oximetry Oxygen Devices in Use Now: None Appearance: This is a well developed older woman seen resting in bed, no acute distress. Eyes: No Scleral Icterus, PERRLA Ears/Nose/Mouth/Throat: NL Teeth, Lips, Gums, Clear Oropharnyx, Mucous Membranes Moist Neck: NL Appearance and Movements; NL JVP, Trachea Midline Respiratory: Symmetrical Chest Expansion and Respiratory Effort, Clear to Auscultation Cardiovascular: NL Sounds; No Murmurs; No JVD, RRR, No Edema Abdominal: - - Softly distended, non-tender, normoactive +BSx4. Lymphatic: No Cervical Adenopathy Extremities: No Edema, No Clubbing, Cyanosis Skin: No Rash or Ulcers, No Nodules or Sclerosis Neurological: Alert and Oriented x 3 Lines/Tubes/Other Access: Clean, Dry and Intact Peripheral IV Result Diagrams: 05/31/19 05:46 05/31/19 05:46 Assess/Plan/Problems-Billing Assessment: This is an 83 year old female with a past medical history significant for DM2, CAD, HTN, and CKD3 who was admitted on 05/30/19 for hypertensive urgency and TIKI. - Patient Problems (1) Hypertensive urgency Current Visit: Yes Status: Acute Code(s): I16.0 - HYPERTENSIVE URGENCY SNOMED Code(s): 118917224 Comment: SBP as high as 200's in the ED. Was managed with IV hydralazine. Initially, her PO hydralazine and diltiazem was started, blood pressures are normalizing though still elevated. Due to question of possible med non- compliance and lack of evidence to keep her on hydralazine, she will be given a 5mg dose of hydralazine tonight and transitioned on to hydrochlorothiazide tomorrow. Her lisinopril will be restarted tomorrow as well. (2) Hyperlipidemia Current Visit: Yes Status: Acute Code(s): E78.5 - HYPERLIPIDEMIA, UNSPECIFIED SNOMED Code(s): 77231275 Comment: -Continue atorvastatin. (3) Npxyj-bh-vpdeuea kidney injury Current Visit: Yes Status: Acute Code(s): N17.9 - ACUTE KIDNEY FAILURE, UNSPECIFIED; N18.9 - CHRONIC KIDNEY DISEASE, UNSPECIFIED SNOMED Code(s): 615057517 Comment: -Initially received 1L NS, creatinine decreased to almost baseline. Ordered another liter to be given @ 100ml/hr then stop. Recheck BMP tomorrow. (4) AMS (altered mental status) Current Visit: Yes Status: Acute Code(s): R41.82 - ALTERED MENTAL STATUS, UNSPECIFIED SNOMED Code(s): 337262026 Comment: - Patient appears to be at baseline, is oriented. - Dr. Mccarty had been consulted, feels this is likely side effect of medications and TIKI. (5) GERD (gastroesophageal reflux disease) Current Visit: Yes Status: Acute Code(s): K21.9 - GASTRO-ESOPHAGEAL REFLUX DISEASE WITHOUT ESOPHAGITIS SNOMED Code(s): 361521121 Comment: - Continue BID protonix (6) Chronic shoulder pain Current Visit: Yes Status: Acute Code(s): M25.519 - PAIN IN UNSPECIFIED SHOULDER; G89.29 - OTHER CHRONIC PAIN SNOMED Code(s): 67719680 Comment: - Continue duloxetine and gabapentin. (7) Iron (Fe) deficiency anemia Current Visit: Yes Status: Acute Code(s): D50.9 - IRON DEFICIENCY ANEMIA, UNSPECIFIED SNOMED Code(s): 55523153 (8) DNR (do not resuscitate) Current Visit: No Status: Acute Comment: - Continue ferrous sulfate. (9) DVT prophylaxis Current Visit: No Status: Acute Onset Date: 06/30/14 Code(s): KLM3785 - SNOMED Code(s): 296309750 Comment: SQ Heparin (10) DNR (do not resuscitate) Current Visit: Yes Status: Acute Status and Disposition: Condition: Fair Dispo: Admit OBV to 4S. Attending: Elizabeth Iglesias
[2019-05-31] MEDS ORDERED: NS 0.9% 1000 ML** 1,000 ML IV SCH (10:15)
[2019-05-31] MEDS: Atorvastatin* 20 MG TAB PO SCH (16:57)
[2019-05-31] MEDS ORDERED: Hydrochlorothiazide TAB* 25 MG PO SCH (21:00)
[2019-05-31] MEDS ORDERED: hydrALAZINE TAB* 10 MG PO SCH (21:00)
[2019-06-01] MEDS: Acetaminophen TAB* 325 MG PO PRN ×4 (00:25→16:47)
[2019-06-01] MEDS: Heparin VIAL(*) 5000 UNITS/ML VIAL (FIVE THOUSAND) SUBCUT SCH ×2 (05:34→13:22)
[2019-06-01 07:04] LABS: ABS Basophils 0.1 10^3/ul (0-0.2); ABS Eosinophils 0.3 10^3/ul (0-0.6); ABS Lymphocytes 1.6 10^3/ul (1.0-4.8); ABS Monocytes 0.6 10^3/ul (0-0.8); ABS Neutrophils 4.5 10^3/ul (1.5-7.7); Eosinophil % 3.8 %; Hematocrit 35 % (35-47); Hemoglobin 11.5 g/dL (12.0-16.0); Lymphocyte % 22.5 %; Mean Corpuscular HGB Conc 33 g/dL (31-36); Mean Corpuscular Hemoglobin 31 pg (27-31); Mean Corpuscular Volume 94 fL (80-97); Mean Platelet Volume 7.6 fL (7.4-10.4); Platelet Count 261 10^3/uL (150-450); Red Blood Count 3.72 10^6 /uL (3.70-4.87); Red Cell Distribution Width 15 % (10-15)
[2019-06-01 07:20] LABS: BUN/Creatinine Ratio 20.7 (8-20); Calcium 9.3 mg/dL (8.6-10.3); EGFR African American 57.1 (>60); EGFR Non-African American 47.2 (>60); Potassium 3.5 mmol/L (3.5-5.0)
[2019-06-01] MEDS: Diltiazem CD CAP* 240 MG PO SCH (08:00)
[2019-06-01] MEDS: Docusate CAP* 100 MG PO SCH (08:01)
[2019-06-01] MEDS: Calcium Carbonate TAB* 1250 MG (CALCIUM 500 MG) PO SCH (08:03)
[2019-06-01] MEDS: Multivitamins/Minerals TAB PO SCH (08:04)
[2019-06-01] MEDS: Gabapentin CAP(*) 100 MG PO SCH (08:05)
[2019-06-01] MEDS: Pantoprazole TAB * 40 MG TAB PO SCH (08:05)
[2019-06-01] MEDS: Cetirizine* 10 MG TAB PO SCH (08:05)
[2019-06-01] MEDS: Ferrous Sulfate TAB* 325 MG PO SCH (08:06)
[2019-06-01] MEDS: DULoxetine DR CAP* 30 MG CAP.DR PO SCH (08:06)
[2019-06-01] MEDS: Hydrochlorothiazide TAB* 25 MG PO SCH ×2 (08:06→08:22)
[2019-06-01] MEDS: Aspirin EC TAB* 81 MG TAB.EC PO SCH (08:07)
[2019-06-01] MEDS ORDERED: Hydrochlorothiazide TAB* 25 MG PO SCH (09:00)
[2019-06-01] MEDS ORDERED: Lisinopril TAB* 10 MG PO SCH (09:00)
[2019-06-01 12:24] VITALS: BP 158/70
[2019-06-01] MEDS: Atorvastatin* 20 MG TAB PO SCH (16:48)
--- NOTE | 2019-06-01 20:34 | DS ---
DISCHARGE SUMMARY: DATE OF ADMISSION: 05/30/19 DATE OF DISCHARGE: 06/01/19 PROVIDER: Dannielle Jacobson NP. ATTENDING PHYSICIAN: Dr. Iglesias.* (DICTATED BY DANNIELLE JACOBSON NP) PRIMARY CARE PROVIDER: BLACK Pompa. CONSULTING PHYSICIANS: None. PRIMARY DIAGNOSES: 1. Hypertensive emergency. 2. Acute kidney injury, now resolved. 3. Altered mental status, now resolved. SECONDARY DIAGNOSES: 1. Escherichia coli colonization. 2. Hyperlipidemia. 3. Gastroesophageal reflux disease. 4. Chronic shoulder pain. 5. Iron-deficiency anemia. PROCEDURES: None. DIAGNOSTIC STUDIES/LAB DATA: CT of the brain without contrast showed no acute intracranial pathology. Chest x-ray showed no active cardiopulmonary disease. Pertinent lab data: Hemoglobin 11.5, hematocrit 35. Creatinine 1.11, BUN/ creatinine ratio 20.7, glucose 95. TSH 1.13. Triglycerides 117, cholesterol 172, LDL cholesterol 77, HDL cholesterol 71.3. Urine had 1+ leukocyte esterase , 3+ wbc's,, present squamous epithelial cells, 3+ bacteria,, and hyaline casts. Urine culture showed E. coli growing greater than 100,000 colonies. HISTORY OF PRESENT ILLNESS/HOSPITAL COURSE: This is an 83-year-old female with a past medical history significant for coronary artery disease, diabetes, hypertension, hyperlipidemia, and chronic kidney disease, who presented to the emergency room on 05/30/19 with complaints of unable to hear her son talking and shortness of breath. Initially, she was treated as a code patel and was seen by Dr. Mccarty. Brain CT was negative. NIH Stroke Scale was 0 and Augustin Coma Scale was 14 and code patel was canceled. She was initially found to have a blood pressure of 137/114, which quickly went up to 208/95 two hours later and therefore was admitted due to hypertensive emergency. The patient states that she had accidentally taken a double dosing of all of her medications the day prior to coming in and noted that she started to feel off after that. To manage the hypertensive emergency, initially she received IV hydralazine; however, she was also found to be in acute kidney injury that was likely secondary to her hypertension, was given IV fluids and her blood pressure and creatinine improved the next day; however, her blood pressure still remained elevated at 150s/70s. Transitioned the patient off of her hydralazine last night and started hydrochlorothiazide, which she is tolerating so far. Since being admitted, her mental status has cleared. She is now completely alert and oriented x4 and she has had no headaches, chest pain, changes in her vision, palpitations, shortness of breath, abdominal pain, nausea, or vomiting. She also reported not having had a bowel movement for 6 days and was given MiraLAX, senna suppository and was able to have 3 large bowel movements since being here. Today, she is in good spirits. Her blood pressure still remains elevated in the 150s/80s; however, she is asymptomatic. REVIEW OF SYSTEMS: A 12-point system review was performed. All pertinent positives and negatives were covered in the HPI. PHYSICAL EXAMINATION: Vitals: 98.2 Fahrenheit, 64 pulse, 16 respirations, 98% oxygen on room air, and 156/75 blood pressure. General: This is a well- developed lady seen resting in the bed, in no acute distress. HEENT: Conjunctivae pink and moist. PERRLA. Arcus senilis noted in bilateral _ . EOMs intact. Oropharynx clear. Mucous membranes moist. Neck is supple. Cardiac: S1, S2 present. Heart rate regular. No murmurs, gallops, or rubs appreciated. Respiratory: Lung sounds clear throughout bilaterally on room air. No accessory muscle use noted. Abdomen: Soft, nontender, nondistended with positive bowel sounds x4. Musculoskeletal: No clubbing or cyanosis of the digits. Skin is intact. No rashes or open areas appreciated. Neurologic: Sensation intact to light touch. No focal deficits appreciated. Psych: She is alert and oriented x4. Thought content organized. DISCHARGE PLAN: She is to be discharged home on a low-fat, low-salt consistent carb diet. She is to be discharged home with the assistance of VNS, home PT, and home health aide. She requested a walker to be discharged with. She is to return to the emergency room should she develop sudden shortness of breath, chest pain, or weakness in one side of her body. PLAN FOR EACH CONDITION: 1. Hypertensive emergency. She is to continue her diltiazem, hydrochlorothiazide, and lisinopril. She is to stop the hydralazine altogether and to follow up with her primary care physician within the next few days as she will need a blood pressure recheck and likely need titration up in her diltiazem dosing. 2. Hyperlipidemia. She is to continue her atorvastatin. 3. Acute on chronic kidney injury. She came in with a creatinine of 2.35, which is elevated above her baseline. Her discharge creatinine is 1.11, which is at her baseline. She responded well to IV fluids. 4. GERD. She is to continue her Protonix. 5. Chronic shoulder pain. Continue duloxetine, gabapentin, and oxycodone. 6. Iron-deficiency anemia. Continue ferrous sulfate. 7. Coronary artery disease. She is to continue her aspirin and nitroglycerin as needed. 8. Osteoporosis. Continue the Prolia. 9. Glaucoma. Continue travoprost. DISCHARGE MEDICATIONS: New medication upon discharge: 1. Hydrochlorothiazide 25 mg p.o. daily. Medications to continue upon discharge: 1. Cranberry extract 2 caps p.o. daily. 2. Duloxetine 30 mg p.o. daily. 3. Baclofen 10 mg p.o. b.i.d. 4. Aspirin 81 mg p.o. daily. 5. Acetaminophen 650 mg p.o. b.i.d. p.r.n. 6. Atorvastatin 20 mg p.o. q.p.m. 7. Senna 1 tab p.o. q.p.m. p.r.n. 8. Milk of magnesia 30 mL p.o. q.4 hours p.r.n. 9. Loratadine 10 mg p.o. daily. 10. Multivitamin 1 tab p.o. daily. 11. Gabapentin 100 mg p.o. t.i.d. 12. Ferrous sulfate 325 mg p.o. q.a.m. 13. Travoprost 0.004% one drop both eyes b.i.d. 14. Omeprazole 20 mg p.o. b.i.d. 15. Docusate 100 mg p.o. q.a.m. 16. Oxycodone/acetaminophen 5/325 one to two tabs p.o. t.i.d. p.r.n. 17. Valacyclovir 500 mg p.o. b.i.d. 18. Cod liver oil 1 cap p.o. q.a.m. 19. Lisinopril 10 mg p.o. q.a.m. 20. Nitroglycerin 0.4 mg sublingually q.5 minutes p.r.n. 21. Diltiazem 240 mg p.o. daily. 22. Triamcinolone 0.025% one application topically b.i.d. p.r.n. 23. Denosumab 60 mg subcu q.6 months. 24. Calcium carbonate 600 mg p.o. b.i.d. CONDITION UPON DISCHARGE: Stable. DISPOSITION: To home. TIME SPENT: Time spent on the patient is about 60 minutes with 30 of that spent [id number]. DANNIELLE JACOBSON, FABI [id number]/[facility] #: [id number] MTDD
== END 2019-06-01 17:23 | disposition home or self-care (01) ==
LOC: ED 15:12 → MEDTELE 20:03
PROVIDERS: ADMIT Nurse Practitioner; ATTEND Internal Medicine
DX: I16.0 Hypertensive urgency (principal); I12.9 Hypertensive chronic kidney disease with stage 1 through stage 4 chronic kidney disease, or unspecified chronic kidney disease; E11.22 Type 2 diabetes mellitus with diabetic chronic kidney disease; N18.3 Chronic kidney disease, stage 3 (moderate); N17.9 Acute kidney failure, unspecified; R41.82 Altered mental status, unspecified; A04.2 Enteroinvasive Escherichia coli infection; E78.5 Hyperlipidemia, unspecified; K21.9 Gastro-esophageal reflux disease without esophagitis; G89.29 Other chronic pain; M25.519 Pain in unspecified shoulder; G92 Toxic encephalopathy; D50.9 Iron deficiency anemia, unspecified; G47.33 Obstructive sleep apnea (adult) (pediatric); I25.10 Atherosclerotic heart disease of native coronary artery without angina pectoris; E03.9 Hypothyroidism, unspecified; I25.2 Old myocardial infarction; R94.31 Abnormal electrocardiogram [ECG] [EKG]; H40.9 Unspecified glaucoma; Z79.82 Long term (current) use of aspirin; Z79.899 Other long term (current) drug therapy; Z96.653 Presence of artificial knee joint, bilateral; Z90.710 Acquired absence of both cervix and uterus; Z88.0 Allergy status to penicillin; Z87.891 Personal history of nicotine dependence; Z95.5 Presence of coronary angioplasty implant and graft; Z86.718 Personal history of other venous thrombosis and embolism; Z66 Do not resuscitate
CPT/HCPCS: 36415; 70450; 71046; 80048; 80053; 80061; 80307; 80320; 81003; 81015; 82140; 82803; 83605; 83735; 84443; 84484; 85025; 85610; 85730; 86850; 86900; 86901; 87077; 87086; 87186; 93005; 96361; 96372; 96374; 99285; A9270-GY; G0378; G0480; J0360; J1644

== ENCOUNTER 2020-02-17 15:51 | Inpatient (IN) ==
[2020-02-17] MEDS ORDERED: NS 0.9% 1000 ml BAG 1,000 ML IV ONE (16:18)
[2020-02-17 17:04] LABS: ABS Basophils 0.1 10^3/ul (0-0.2); ABS Eosinophils 0.2 10^3/ul (0-0.6); ABS Lymphocytes 1.7 10^3/ul (1.0-4.8); ABS Monocytes 0.8 10^3/ul (0-0.8); ABS Neutrophils 7.3 10^3/ul (1.5-7.7); Eosinophil % 1.8 %; Hematocrit 40 % (35-47); Hemoglobin 13.1 g/dL (12.0-16.0); Lymphocyte % 17.2 %; Mean Corpuscular HGB Conc 33 g/dL (31-36); Mean Corpuscular Hemoglobin 32 pg (27-31); Mean Corpuscular Volume 97 fL (80-97); Mean Platelet Volume 7.6 fL (7.4-10.4); Platelet Count 251 10^3/uL (150-450); Red Blood Count 4.11 10^6 /uL (3.70-4.87); Red Cell Distribution Width 14 % (10-15); White Blood Count 10.1 10^3/uL (3.5-10.8)
[2020-02-17 17:19] LABS: INR 0.96 (0.82-1.09)
[2020-02-17 17:22] LABS: Ammonia 39 mcmol/L (16-53)
[2020-02-17 17:26] LABS: Albumin 4.3 g/dL (3.2-5.2); Albumin/Globulin Ratio 1.3 (1-3); BNP 44 pg/mL (<=100); Calcium 11.3 mg/dL (8.6-10.3); EGFR African American 44.3 (>60); EGFR Non-African American 36.6 (>60); Globulin 3.3 g/dL (2-4); Magnesium 2.2 mg/dL (1.9-2.7); Potassium 3.1 mmol/L (3.5-5.0); Total Bilirubin 0.7 mg/dL (0.2-1.0); Total Protein 7.6 g/dL (6.4-8.9)
[2020-02-17 18:20] LABS: Urine Appearance Cloudy; Urine Bilirubin Negative (Negative); Urine Blood 2+ (Negative); Urine Color Yellow; Urine Glucose Negative (Negative); Urine Ketones Negative (Negative); Urine Nitrite Positive (Negative); Urine Protein Negative (Negative); Urine Urobilinogen Negative (Negative)
[2020-02-17 18:22] LABS: Urine Bacteria 1+ (Absent); Urine Red Blood Cell 2+(6-10/hpf) (Absent); Urine Squamous Epithelial Cell Present (Absent); Urine White Blood Cell 3+(>20/hpf) (Absent)
[2020-02-17] MEDS ORDERED: Potassium Chlor 20 meq TAB.ER PO ONE ×2 (19:07→21:00)
[2020-02-17] MEDS ORDERED: Meropenem 1 GM PREMIX(*) 1 GM/50 ML BAG IV ONE (19:30)
[2020-02-17] MEDS: KCL 20 MEQ/100 ML IVPREMIX 20 MEQ/100 ML BAG IV SCH (19:40)
[2020-02-17] MEDS ORDERED: Ondansetron 4 mg VIAL 2 MG/ML 2 ml VIAL IV PRN (20:14)
[2020-02-17] MEDS ORDERED: Senna TAB 8.6 mg TAB PO PRN (20:25)
[2020-02-17] MEDS ORDERED: Travoprost Z 0.004% OPHTH (NF) 2.5 ML BTL BOTH EYES SCH (21:00)
[2020-02-17 21:13] LABS: Vitamin D Total 25(OH) 48.9 ng/mL (20-50)
[2020-02-17] MEDS: NS 0.9% 1000 ml BAG 1,000 ML IV SCH (23:57)
[2020-02-18] MEDS: Heparin 5000 UNITS/ML 1 mL VIAL SUBCUT SCH ×4 (00:21→21:24)
[2020-02-18] MEDS: KCL 20 MEQ/100 ML IVPREMIX 20 MEQ/100 ML BAG IV SCH (00:22)
[2020-02-18] MEDS: Latanoprost 0.005% 2.5 ml BTL BOTH EYES SCH ×2 (01:22→21:35)
[2020-02-18] MEDS ORDERED: Phenol 1.4% Throat Spray 177 ml BTL MT PRN (05:00)
[2020-02-18 06:29] LABS: INR 0.9 (0.82-1.09)
[2020-02-18 06:41] LABS: BUN/Creatinine Ratio 27.9 (8-20); Calcium 9.7 mg/dL (8.6-10.3); EGFR African American 47.9 (>60); EGFR Non-African American 39.6 (>60); Potassium 3.9 mmol/L (3.5-5.0)
[2020-02-18] MEDS ORDERED: DILTIAZEM HCL 300 MG PO SCH (09:00)
[2020-02-18 09:29] LABS: ABS Basophils 0.1 10^3/ul (0-0.2); ABS Eosinophils 0.2 10^3/ul (0-0.6); ABS Lymphocytes 1.7 10^3/ul (1.0-4.8); ABS Monocytes 0.4 10^3/ul (0-0.8); ABS Neutrophils 8.2 10^3/ul (1.5-7.7); Eosinophil % 1.9 %; Hematocrit 38 % (35-47); Hemoglobin 12.9 g/dL (12.0-16.0); Mean Corpuscular HGB Conc 34 g/dL (31-36); Mean Corpuscular Hemoglobin 32 pg (27-31); Mean Corpuscular Volume 96 fL (80-97); Mean Platelet Volume 7.8 fL (7.4-10.4); Platelet Count 229 10^3/uL (150-450); Red Blood Count 3.97 10^6 /uL (3.70-4.87); Red Cell Distribution Width 15 % (10-15); White Blood Count 10.6 10^3/uL (3.5-10.8)
[2020-02-18] MEDS: Aspirin EC 81 mg TAB.EC (enteric coated) PO SCH (09:42)
[2020-02-18] MEDS: DULoxetine DR 30 mg CAP PO SCH (09:43)
[2020-02-18] MEDS: Meropenem 1 GM PREMIX(*) 1 GM/50 ML BAG IV SCH ×2 (09:45→21:24)
[2020-02-18] MEDS: NS 0.9% 1000 ml BAG 1,000 ML IV SCH (11:17)
[2020-02-19] MEDS: Heparin 5000 UNITS/ML 1 mL VIAL SUBCUT SCH ×3 (06:19→22:27)
[2020-02-19 06:34] LABS: ABS Basophils 0.1 10^3/ul (0-0.2); ABS Eosinophils 0.2 10^3/ul (0-0.6); ABS Lymphocytes 2.1 10^3/ul (1.0-4.8); ABS Monocytes 0.8 10^3/ul (0-0.8); ABS Neutrophils 7.7 10^3/ul (1.5-7.7); Eosinophil % 2.1 %; Hematocrit 36 % (35-47); Hemoglobin 11.9 g/dL (12.0-16.0); Lymphocyte % 19.6 %; Mean Corpuscular HGB Conc 33 g/dL (31-36); Mean Corpuscular Hemoglobin 32 pg (27-31); Mean Corpuscular Volume 97 fL (80-97); Mean Platelet Volume 8.1 fL (7.4-10.4); Platelet Count 238 10^3/uL (150-450); Red Blood Count 3.73 10^6 /uL (3.70-4.87); Red Cell Distribution Width 14 % (10-15)
[2020-02-19 06:50] LABS: BUN/Creatinine Ratio 25.2 (8-20); Calcium 9.7 mg/dL (8.6-10.3); EGFR African American 50.6 (>60); EGFR Non-African American 41.8 (>60); Potassium 3.4 mmol/L (3.5-5.0)
[2020-02-19] MEDS: Aspirin EC 81 mg TAB.EC (enteric coated) PO SCH (07:54)
[2020-02-19] MEDS: DULoxetine DR 30 mg CAP PO SCH (07:55)
[2020-02-19] MEDS: Meropenem 1 GM PREMIX(*) 1 GM/50 ML BAG IV SCH ×2 (10:17→22:22)
[2020-02-19] MEDS: Latanoprost 0.005% 2.5 ml BTL BOTH EYES SCH (20:08)
[2020-02-19] MEDS ORDERED: Potassium Chlor 20 meq TAB.ER PO ONE (21:22)
[2020-02-20 05:28] LABS: ABS Basophils 0.1 10^3/ul (0-0.2); ABS Eosinophils 0.3 10^3/ul (0-0.6); ABS Lymphocytes 1.8 10^3/ul (1.0-4.8); ABS Monocytes 0.7 10^3/ul (0-0.8); ABS Neutrophils 6.9 10^3/ul (1.5-7.7); Eosinophil % 2.7 %; Hematocrit 36 % (35-47); Hemoglobin 12.1 g/dL (12.0-16.0); Lymphocyte % 18.1 %; Mean Corpuscular HGB Conc 33 g/dL (31-36); Mean Corpuscular Hemoglobin 32 pg (27-31); Mean Corpuscular Volume 96 fL (80-97); Mean Platelet Volume 7.6 fL (7.4-10.4); Nucleated Red Blood Cells % 0.1; Platelet Count 229 10^3/uL (150-450); Red Blood Count 3.77 10^6 /uL (3.70-4.87); Red Cell Distribution Width 15 % (10-15); White Blood Count 9.7 10^3/uL (3.5-10.8)
[2020-02-20 05:45] LABS: BUN/Creatinine Ratio 29.6 (8-20); Calcium 9.8 mg/dL (8.6-10.3); EGFR African American 54.7 (>60); EGFR Non-African American 45.2 (>60); Potassium 3.9 mmol/L (3.5-5.0)
[2020-02-20] MEDS: Heparin 5000 UNITS/ML 1 mL VIAL SUBCUT SCH (06:06)
[2020-02-20] MEDS: Aspirin EC 81 mg TAB.EC (enteric coated) PO SCH (08:30)
[2020-02-20] MEDS: DULoxetine DR 30 mg CAP PO SCH (08:34)
[2020-02-20 10:10] LABS: Magnesium 1.9 mg/dL (1.9-2.7)
[2020-02-20] MEDS: Meropenem 1 GM PREMIX(*) 1 GM/50 ML BAG IV SCH (10:25)
[2020-02-20] MEDS ORDERED: Magnesium Hydroxide LIQ 30 ML UDC PO PRN (17:28)
[2020-02-20] MEDS: Nitrofurantoin (monohydrate/macrocrystals) 100 mg CAP PO SCH (20:22)
[2020-02-20] MEDS: Enoxaparin 40 MG/0.4 ML SYR SUBCUT SCH (20:23)
[2020-02-20] MEDS: Latanoprost 0.005% 2.5 ml BTL BOTH EYES SCH (21:46)
[2020-02-21] MEDS: DULoxetine DR 30 mg CAP PO SCH (09:01)
[2020-02-21] MEDS: Aspirin EC 81 mg TAB.EC (enteric coated) PO SCH (09:04)
[2020-02-21] MEDS: Nitrofurantoin (monohydrate/macrocrystals) 100 mg CAP PO SCH ×2 (11:29→22:05)
[2020-02-21] MEDS: Enoxaparin 40 MG/0.4 ML SYR SUBCUT SCH (22:07)
[2020-02-21] MEDS: Latanoprost 0.005% 2.5 ml BTL BOTH EYES SCH (22:07)
[2020-02-22 09:18] LABS: ABS Basophils 0.1 10^3/ul (0-0.2); ABS Eosinophils 0.3 10^3/ul (0-0.6); ABS Lymphocytes 1.9 10^3/ul (1.0-4.8); ABS Monocytes 0.7 10^3/ul (0-0.8); ABS Neutrophils 6.5 10^3/ul (1.5-7.7); Eosinophil % 2.9 %; Hematocrit 35 % (35-47); Hemoglobin 11.7 g/dL (12.0-16.0); Lymphocyte % 20.1 %; Mean Corpuscular HGB Conc 33 g/dL (31-36); Mean Corpuscular Hemoglobin 32 pg (27-31); Mean Corpuscular Volume 97 fL (80-97); Platelet Count 242 10^3/uL (150-450); Red Blood Count 3.62 10^6 /uL (3.70-4.87); Red Cell Distribution Width 14 % (10-15); White Blood Count 9.6 10^3/uL (3.5-10.8)
[2020-02-22 09:41] LABS: ALT 27 U/L (7-52); Albumin 3.9 g/dL (3.2-5.2); Albumin/Globulin Ratio 1.3 (1-3); Alkaline Phosphatase 90 U/L (34-104); Anion Gap 8 mmol/L (2-11); Blood Urea Nitrogen 49 mg/dL (6-24); CO2 Carbon Dioxide 30 mmol/L (22-32); Calcium 10.1 mg/dL (8.6-10.3); Chloride 101 mmol/L (101-111); EGFR Non-African American 37.2 (>60); Globulin 2.9 g/dL (2-4); Glucose 96 mg/dL (70-100); Potassium 3.5 mmol/L (3.5-5.0); Sodium 139 mmol/L (135-145); Total Protein 6.8 g/dL (6.4-8.9)
[2020-02-22 09:42] LABS: AST 25 U/L (13-39)
[2020-02-22] MEDS: Nitrofurantoin (monohydrate/macrocrystals) 100 mg CAP PO SCH ×2 (09:50→22:42)
[2020-02-22] MEDS: DULoxetine DR 30 mg CAP PO SCH (09:50)
[2020-02-22] MEDS: Aspirin EC 81 mg TAB.EC (enteric coated) PO SCH (09:53)
[2020-02-22] MEDS ORDERED: Lactated Ringers 1000 ml BAG 1,000 ML IV ONE (16:39)
[2020-02-22] MEDS: Latanoprost 0.005% 2.5 ml BTL BOTH EYES SCH (22:45)
[2020-02-22] MEDS: Enoxaparin 40 MG/0.4 ML SYR SUBCUT SCH (22:45)
[2020-02-23] MEDS: Aspirin EC 81 mg TAB.EC (enteric coated) PO SCH (08:30)
[2020-02-23] MEDS: DULoxetine DR 30 mg CAP PO SCH (08:31)
[2020-02-23] MEDS: Nitrofurantoin (monohydrate/macrocrystals) 100 mg CAP PO SCH ×2 (08:33→21:38)
[2020-02-23 10:53] LABS: % Iron Saturation 25 % (15-55); Iron 87 ug/dL (50-212); Total Iron Binding Capacity 353 mcg/dL (250-450); Transferrin 252 mg/dL (203-362); Unsaturated Iron Binding < 338 ug/dL
[2020-02-23 10:56] LABS: ABS Basophils 0.1 10^3/ul (0-0.2); ABS Eosinophils 0.3 10^3/ul (0-0.6); ABS Lymphocytes 1.6 10^3/ul (1.0-4.8); ABS Monocytes 0.6 10^3/ul (0-0.8); ABS Neutrophils 6.1 10^3/ul (1.5-7.7); Eosinophil % 3.4 %; Hematocrit 38 % (35-47); Hemoglobin 12.6 g/dL (12.0-16.0); Lymphocyte % 18.7 %; Mean Corpuscular HGB Conc 33 g/dL (31-36); Mean Corpuscular Hemoglobin 32 pg (27-31); Mean Corpuscular Volume 97 fL (80-97); Mean Platelet Volume 8.1 fL (7.4-10.4); Platelet Count 229 10^3/uL (150-450); Red Blood Count 3.95 10^6 /uL (3.70-4.87); Red Cell Distribution Width 14 % (10-15); White Blood Count 8.8 10^3/uL (3.5-10.8)
[2020-02-23 11:10] LABS: Ferritin 121.5 ng/mL (11-307)
[2020-02-23 11:14] LABS: Folate > 20.00 ng/mL (>3.99)
[2020-02-23 11:15] LABS: Vitamin B12 659 pg/mL (180-914)
[2020-02-23 11:29] LABS: BUN/Creatinine Ratio 40.5 (8-20); Calcium 10.4 mg/dL (8.6-10.3); EGFR African American 54.1 (>60); EGFR Non-African American 44.7 (>60); Potassium 3.5 mmol/L (3.5-5.0)
[2020-02-23] MEDS: Latanoprost 0.005% 2.5 ml BTL BOTH EYES SCH (21:40)
[2020-02-23] MEDS: Enoxaparin 40 MG/0.4 ML SYR SUBCUT SCH (21:40)
[2020-02-24] MEDS: DULoxetine DR 30 mg CAP PO SCH (09:21)
[2020-02-24] MEDS: Aspirin EC 81 mg TAB.EC (enteric coated) PO SCH (09:21)
[2020-02-24 11:59] VITALS: BP 136/66
== END 2020-02-24 16:30 | disposition home health service (06) | DRG 689 ==
LOC: MED 15:51 → ED 15:51 → OBSVTOIN 21:55 → MED 23:26
PROVIDERS: ADMIT Internal Medicine; ATTEND Student in an Organized Health Care Education/Training Program

== ENCOUNTER 2021-07-06 09:10 | Observation (INO) ==
[2021-07-06 11:34] LABS: ABS Eosinophils 0.1 10^3/ul (0-0.6); ABS Lymphocytes 1.2 10^3/ul (1.0-4.8); ABS Monocytes 0.7 10^3/ul (0-0.8); ABS Neutrophils 11.2 10^3/ul (1.5-7.7); Eosinophil % 0.6 %; Hematocrit 41 % (35-47); Hemoglobin 13.6 g/dL (12.0-16.0); Lymphocyte % 9.2 %; Mean Corpuscular HGB Conc 33 g/dL (31-36); Mean Corpuscular Hemoglobin 32 pg (27-31); Mean Corpuscular Volume 96 fL (80-97); Nucleated Red Blood Cells % 0.1; Platelet Count 228 10^3/uL (150-450); Red Blood Count 4.26 10^6 /uL (3.70-4.87); Red Cell Distribution Width 14 % (10-15); White Blood Count 13.2 10^3/uL (3.5-10.8)
[2021-07-06 11:46] LABS: INR 1.04 (0.86-1.15)
[2021-07-06 11:58] LABS: High Sens Troponin Baseline 26 pg/mL (<15)
[2021-07-06 12:10] LABS: ALT 17 U/L (7-52); Albumin 4.2 g/dL (3.2-5.2); Albumin/Globulin Ratio 1.3 (1-3); Alkaline Phosphatase 106 U/L (35-149); Blood Urea Nitrogen 25 mg/dL (6-24); CO2 Carbon Dioxide 39 mmol/L (22-32); Calcium 10.9 mg/dL (8.6-10.3); Chloride 90 mmol/L (101-111); Globulin 3.3 g/dL (2-4); Glucose 88 mg/dL (70-100); Sodium 138 mmol/L (135-145); Total Protein 7.5 g/dL (6.4-8.9); eGFR CKD-EPI 26.4 (>60)
[2021-07-06 13:09] LABS: High Sensitivity Troponin 1 Hr 22 pg/mL (<15)
[2021-07-06 13:36] LABS: Anion Gap 9 mmol/L (2-11)
[2021-07-06 14:16] LABS: High Sensitivity Troponin 3 Hr 33 pg/mL (<15)
[2021-07-06] MEDS ORDERED: Ondansetron 4 mg VIAL 2 MG/ML 2 ml VIAL IV PRN (16:48)
[2021-07-06 17:23] LABS: Urine Appearance Cloudy; Urine Bilirubin Negative (Negative); Urine Blood 2+ (Negative); Urine Color Yellow; Urine Glucose Negative (Negative); Urine Ketones Negative (Negative); Urine Nitrite Negative (Negative); Urine Protein Negative (Negative); Urine Specific Gravity 1.005 (1.002-1.030); Urine Urobilinogen Negative (Negative)
[2021-07-06 17:40] LABS: Urine Bacteria 1+ (Absent); Urine Red Blood Cell Trace(0-2/hpf) (Absent); Urine Squamous Epithelial Cell Present (Absent); Urine White Blood Cell Trace(0-5/hpf) (Absent)
[2021-07-06] MEDS: Enoxaparin 30 MG/0.3 ML SYR SUBCUT SCH (18:03)
[2021-07-06] MEDS: Al Hydrox/Mg Hydrox/Simet LIQ 30 ML UDC PO PRN (22:15)
[2021-07-06] MEDS: Latanoprost 0.005% 2.5 ml BTL BOTH EYES SCH (23:16)
[2021-07-07 06:25] LABS: ABS Basophils 0.1 10^3/ul (0-0.2); ABS Eosinophils 0.2 10^3/ul (0-0.6); ABS Lymphocytes 1.5 10^3/ul (1.0-4.8); ABS Monocytes 0.7 10^3/ul (0-0.8); ABS Neutrophils 7.4 10^3/ul (1.5-7.7); Eosinophil % 1.6 %; Hematocrit 36 % (35-47); Hemoglobin 12.1 g/dL (12.0-16.0); Mean Corpuscular HGB Conc 34 g/dL (31-36); Mean Corpuscular Hemoglobin 32 pg (27-31); Mean Corpuscular Volume 97 fL (80-97); Mean Platelet Volume 8.3 fL (7.4-10.4); Platelet Count 203 10^3/uL (150-450); Red Blood Count 3.74 10^6 /uL (3.70-4.87); Red Cell Distribution Width 14 % (10-15); White Blood Count 9.8 10^3/uL (3.5-10.8)
[2021-07-07 06:41] LABS: Calcium 9.4 mg/dL (8.6-10.3); Potassium 3.4 mmol/L (3.5-5.0); eGFR CKD-EPI 18.9 (>60)
[2021-07-07] MEDS: DULoxetine DR 30 mg CAP PO SCH (10:47)
[2021-07-07] MEDS: Aspirin EC 81 mg TAB.EC (enteric coated) PO SCH (10:47)
[2021-07-07] MEDS ORDERED: Polyethylene Glycol 3350 17 GM PACKET PO PRN (11:07)
[2021-07-07] MEDS ORDERED: Magnesium Hydroxide LIQ 30 ML UDC PO PRN (11:07)
[2021-07-07] MEDS ORDERED: Perflutren Lipid Microsphere 3 ML VIAL ONE (13:13)
[2021-07-07] MEDS ORDERED: NS 0.9% 1000 ml BAG 1,000 ML IV SCH (18:00)
[2021-07-07] MEDS: Enoxaparin 30 MG/0.3 ML SYR SUBCUT SCH (18:36)
[2021-07-07] MEDS: Latanoprost 0.005% 2.5 ml BTL BOTH EYES SCH (21:20)
[2021-07-08 04:47] LABS: Calcium 8.9 mg/dL (8.6-10.3); Potassium 3.1 mmol/L (3.5-5.0); eGFR CKD-EPI 22.8 (>60)
[2021-07-08] MEDS ORDERED: Potassium Chlor 20 meq TAB.ER PO ONE (05:29)
[2021-07-08] MEDS: Polyethylene Glycol 3350 17 GM PACKET PO SCH (08:37)
[2021-07-08] MEDS: DULoxetine DR 30 mg CAP PO SCH (08:37)
[2021-07-08] MEDS: Aspirin EC 81 mg TAB.EC (enteric coated) PO SCH (08:37)
[2021-07-08] MEDS ORDERED: NS 0.9% 1000 ml BAG 1,000 ML IV SCH (13:30)
[2021-07-08] MEDS: Enoxaparin 30 MG/0.3 ML SYR SUBCUT SCH (17:39)
[2021-07-08] MEDS: Latanoprost 0.005% 2.5 ml BTL BOTH EYES SCH (21:13)
[2021-07-08] MEDS: Al Hydrox/Mg Hydrox/Simet LIQ 30 ML UDC PO PRN (21:58)
[2021-07-09] MEDS: Polyethylene Glycol 3350 17 GM PACKET PO SCH (08:13)
[2021-07-09] MEDS: DULoxetine DR 30 mg CAP PO SCH (08:14)
[2021-07-09] MEDS: Aspirin EC 81 mg TAB.EC (enteric coated) PO SCH (08:14)
[2021-07-09 13:53] LABS: Potassium 4.3 mmol/L (3.5-5.0)
[2021-07-09 13:54] LABS: Calcium 9.1 mg/dL (8.6-10.3); eGFR CKD-EPI 35.9 (>60)
[2021-07-09 15:44] VITALS: BP 131/69
== END 2021-07-09 16:25 | disposition home or self-care (01) ==
LOC: EDHOLD 09:10 → ED 09:10 → SUATTDRO 16:48 → MEDTELE 20:47
PROVIDERS: ADMIT Internal Medicine; ATTEND Hospitalist

== ENCOUNTER 2021-08-08 08:20 | Inpatient (IN) ==
[2021-08-08 09:30] LABS: ABS Eosinophils 0.2 10^3/ul (0-0.6); ABS Lymphocytes 0.7 10^3/ul (1.0-4.8); ABS Monocytes 0.5 10^3/ul (0-0.8); ABS Neutrophils 7.3 10^3/ul (1.5-7.7); Eosinophil % 2.2 %; Hematocrit 37 % (35-47); Hemoglobin 12.1 g/dL (12.0-16.0); Lymphocyte % 8.3 %; Mean Corpuscular HGB Conc 33 g/dL (31-36); Mean Corpuscular Hemoglobin 32 pg (27-31); Mean Corpuscular Volume 97 fL (80-97); Mean Platelet Volume 9.1 fL (7.4-10.4); Nucleated Red Blood Cells % 0.1; Platelet Count 167 10^3/uL (150-450); Red Blood Count 3.77 10^6 /uL (3.70-4.87); Red Cell Distribution Width 15 % (10-15); White Blood Count 8.8 10^3/uL (3.5-10.8)
[2021-08-08 09:33] LABS: PCO2 Arterial 45 mmHg (35-45); PO2 Arterial 71 mmHg (80-100)
[2021-08-08 09:46] LABS: High Sens Troponin Baseline 16 pg/mL (<15)
[2021-08-08 10:25] LABS: ALT 14 U/L (7-52); Albumin 3.4 g/dL (3.2-5.2); Albumin/Globulin Ratio 1.2 (1-3); Alkaline Phosphatase 70 U/L (35-149); Blood Urea Nitrogen 43 mg/dL (6-24); C Reactive Protein 19.02 mg/L (<8.01); CO2 Carbon Dioxide 32 mmol/L (22-32); Calcium 9.3 mg/dL (8.6-10.3); Chloride 100 mmol/L (101-111); Globulin 2.8 g/dL (2-4); Glucose 121 mg/dL (70-100); Sodium 139 mmol/L (135-145); Total Protein 6.2 g/dL (6.4-8.9); eGFR CKD-EPI 20.4 (>60)
[2021-08-08 10:30] LABS: Urine Appearance Turbid; Urine Bilirubin Negative (Negative); Urine Blood 1+ (Negative); Urine Color Amber; Urine Glucose Negative (Negative); Urine Ketones Negative (Negative); Urine Nitrite Negative (Negative); Urine Protein 1+(30 mg/dL) (Negative); Urine Specific Gravity 1.012 (1.002-1.030); Urine Urobilinogen Negative (Negative)
[2021-08-08 10:33] LABS: TSH Ultra Thyroid Stim Horm 2.33 mcIU/mL (0.34-5.60)
[2021-08-08 10:34] LABS: Anion Gap 7 mmol/L (2-11)
[2021-08-08 10:46] LABS: High Sensitivity Troponin 1 Hr 14 pg/mL (<15)
[2021-08-08 10:50] LABS: Urine Bacteria 1+ (Absent); Urine Red Blood Cell Trace(0-2/hpf) (Absent); Urine Squamous Epithelial Cell Present (Absent); Urine White Blood Cell 2+(11-20/hpf) (Absent)
[2021-08-08] MEDS ORDERED: cefTRIAXone 1 gm/50 mL D5W 1 GM/50 ML BAG IV ONE (10:58)
[2021-08-08] MEDS ORDERED: Cefepime 1 GM in Dextrose 1 GM/50 ML BAG IV ONE (12:44)
[2021-08-08 12:46] LABS: Potassium Redraw 3.5 mmol/L (3.5-5.0)
[2021-08-08] MEDS ORDERED: Al Hydrox/Mg Hydrox/Simet LIQ 30 ML UDC PO PRN (13:43)
[2021-08-08] MEDS ORDERED: Ondansetron 4 mg VIAL 2 MG/ML 2 ml VIAL IV PRN (13:43)
[2021-08-08] MEDS: Heparin 5000 UNITS/ML 1 mL VIAL SUBCUT SCH ×2 (14:32→21:33)
[2021-08-08 14:45] LABS: Erythrocyte Sed Rate 53 mm/Hr (0-29)
[2021-08-08] MEDS ORDERED: Albuterol/Ipratropium NEB.SOL (2.5/0.5 MG) 3 ML NEB.SOLN INH ONE (17:14)
[2021-08-08] MEDS ORDERED: Oxymetazoline 0.05% NASAL SPR 15 ML BTL BOTH NARES ONE (17:44)
[2021-08-08] MEDS ORDERED: Albuterol 2.5mg/3 ml (0.083%) NEB.SOLN INH PRN (17:44)
[2021-08-08] MEDS: Hydrocortisone INJ 100 MG/2ML 2 ML VIAL IV SCH (19:40)
[2021-08-08] MEDS ORDERED: Furosemide 40 mg/4 ml IV VIAL IV SLOW PU ONE (21:23)
[2021-08-08] MEDS: Oxymetazoline 0.05% NASAL SPR 15 ML BTL BOTH NARES SCH (21:34)
[2021-08-08] MEDS: Latanoprost 0.005% 2.5 ml BTL BOTH EYES SCH (21:34)
[2021-08-09] MEDS ORDERED: Cefepime ADVAN 1 GM in NS 0.9% 50 ML 50 ML IVPB SCH (01:00)
[2021-08-09] MEDS: Hydrocortisone INJ 100 MG/2ML 2 ML VIAL IV SCH ×2 (02:18→09:40)
[2021-08-09] MEDS: Meropenem 1 GM PREMIX(*) 1 GM/50 ML BAG IV SCH ×2 (05:22→17:15)
[2021-08-09] MEDS: Heparin 5000 UNITS/ML 1 mL VIAL SUBCUT SCH ×3 (05:23→21:21)
[2021-08-09 05:31] LABS: ABS Eosinophils 0.1 10^3/ul (0-0.6); ABS Lymphocytes 0.7 10^3/ul (1.0-4.8); ABS Monocytes 0.4 10^3/ul (0-0.8); Eosinophil % 0.8 %; Hematocrit 39 % (35-47); Hemoglobin 12.9 g/dL (12.0-16.0); Lymphocyte % 8.1 %; Mean Corpuscular HGB Conc 33 g/dL (31-36); Mean Corpuscular Hemoglobin 32 pg (27-31); Mean Corpuscular Volume 98 fL (80-97); Mean Platelet Volume 8.6 fL (7.4-10.4); Nucleated Red Blood Cells % 0.1; Platelet Count 163 10^3/uL (150-450); Red Blood Count 4.03 10^6 /uL (3.70-4.87); Red Cell Distribution Width 15 % (10-15); White Blood Count 9.3 10^3/uL (3.5-10.8)
[2021-08-09 06:12] LABS: Blood Urea Nitrogen 38 mg/dL (6-24); CO2 Carbon Dioxide 33 mmol/L (22-32); Calcium 9.6 mg/dL (8.6-10.3); Chloride 98 mmol/L (101-111); Glucose 201 mg/dL (70-100); Magnesium 2.1 mg/dL (1.9-2.7); Sodium 140 mmol/L (135-145)
[2021-08-09 06:26] LABS: Anion Gap 9 mmol/L (2-11)
[2021-08-09] MEDS: Aspirin EC 81 mg TAB.EC (enteric coated) PO SCH (08:34)
[2021-08-09] MEDS: Oxymetazoline 0.05% NASAL SPR 15 ML BTL BOTH NARES SCH ×2 (08:42→21:13)
[2021-08-09] MEDS ORDERED: DULoxetine DR 30 mg CAP PO SCH (09:00)
[2021-08-09] MEDS: Latanoprost 0.005% 2.5 ml BTL BOTH EYES SCH (21:12)
[2021-08-10 05:03] LABS: ABS Eosinophils 0.2 10^3/ul (0-0.6); ABS Lymphocytes 1.3 10^3/ul (1.0-4.8); ABS Monocytes 0.9 10^3/ul (0-0.8); ABS Neutrophils 7.2 10^3/ul (1.5-7.7); Eosinophil % 1.8 %; Hematocrit 38 % (35-47); Hemoglobin 12.3 g/dL (12.0-16.0); Lymphocyte % 13.3 %; Mean Corpuscular HGB Conc 33 g/dL (31-36); Mean Corpuscular Hemoglobin 32 pg (27-31); Mean Corpuscular Volume 98 fL (80-97); Mean Platelet Volume 8.9 fL (7.4-10.4); Platelet Count 170 10^3/uL (150-450); Red Blood Count 3.83 10^6 /uL (3.70-4.87); Red Cell Distribution Width 15 % (10-15); White Blood Count 9.6 10^3/uL (3.5-10.8)
[2021-08-10 05:20] LABS: Calcium 9.2 mg/dL (8.6-10.3); Magnesium 2.2 mg/dL (1.9-2.7); Potassium 3.2 mmol/L (3.5-5.0); eGFR CKD-EPI 22.9 (>60)
[2021-08-10] MEDS: Heparin 5000 UNITS/ML 1 mL VIAL SUBCUT SCH ×3 (06:44→21:55)
[2021-08-10] MEDS: Meropenem 1 GM PREMIX(*) 1 GM/50 ML BAG IV SCH ×2 (06:44→19:59)
[2021-08-10] MEDS: Oxymetazoline 0.05% NASAL SPR 15 ML BTL BOTH NARES SCH ×2 (08:03→22:23)
[2021-08-10] MEDS: Aspirin EC 81 mg TAB.EC (enteric coated) PO SCH (08:03)
[2021-08-10] MEDS: Benzocaine/Menthol LOZ MT PRN (21:55)
[2021-08-10] MEDS: Latanoprost 0.005% 2.5 ml BTL BOTH EYES SCH (22:22)
[2021-08-11] MEDS: Meropenem 1 GM PREMIX(*) 1 GM/50 ML BAG IV SCH ×2 (05:32→17:52)
[2021-08-11] MEDS: Heparin 5000 UNITS/ML 1 mL VIAL SUBCUT SCH ×3 (05:35→20:19)
[2021-08-11 06:06] LABS: Magnesium 1.9 mg/dL (1.9-2.7); Potassium 3.2 mmol/L (3.5-5.0); eGFR CKD-EPI 37.4 (>60)
[2021-08-11] MEDS ORDERED: Magnesium Sulfate 2 gm BAG 2 GM/50 ML BAG IVPB ONE (07:12)
[2021-08-11] MEDS: Aspirin EC 81 mg TAB.EC (enteric coated) PO SCH (08:10)
[2021-08-11] MEDS: Oxymetazoline 0.05% NASAL SPR 15 ML BTL BOTH NARES SCH ×2 (08:10→20:18)
[2021-08-11] MEDS: Benzocaine/Menthol LOZ MT PRN (20:18)
[2021-08-11] MEDS: Latanoprost 0.005% 2.5 ml BTL BOTH EYES SCH (20:19)
[2021-08-12 05:09] LABS: Calcium 8.9 mg/dL (8.6-10.3); Magnesium 2.2 mg/dL (1.9-2.7); eGFR CKD-EPI 41.7 (>60)
[2021-08-12] MEDS: Meropenem 1 GM PREMIX(*) 1 GM/50 ML BAG IV SCH ×2 (06:18→18:24)
[2021-08-12] MEDS: Heparin 5000 UNITS/ML 1 mL VIAL SUBCUT SCH ×3 (06:24→20:33)
[2021-08-12] MEDS: KCL 20 MEQ/100 ML IVPREMIX 20 MEQ/100 ML BAG IV SCH ×2 (09:47→15:43)
[2021-08-12] MEDS: Aspirin EC 81 mg TAB.EC (enteric coated) PO SCH (09:47)
[2021-08-12] MEDS: Oxymetazoline 0.05% NASAL SPR 15 ML BTL BOTH NARES SCH ×2 (09:48→20:37)
[2021-08-12] MEDS ORDERED: KCL 20 MEQ/100 ML IVPREMIX 20 MEQ/100 ML BAG ONE (15:36)
[2021-08-12] MEDS: Potassium Chlor 20 meq TAB.ER PO SCH (20:33)
[2021-08-12] MEDS: Latanoprost 0.005% 2.5 ml BTL BOTH EYES SCH (20:37)
[2021-08-13] MEDS: Heparin 5000 UNITS/ML 1 mL VIAL SUBCUT SCH ×3 (05:31→20:45)
[2021-08-13] MEDS: Meropenem 1 GM PREMIX(*) 1 GM/50 ML BAG IV SCH ×2 (05:32→18:05)
[2021-08-13 06:34] LABS: Calcium 9.3 mg/dL (8.6-10.3); Potassium 3.2 mmol/L (3.5-5.0)
[2021-08-13] MEDS: KCL 20 MEQ/100 ML IVPREMIX 20 MEQ/100 ML BAG IV SCH ×2 (08:51→14:48)
[2021-08-13] MEDS: Potassium Chlor 20 meq TAB.ER PO SCH ×2 (08:51→20:46)
[2021-08-13] MEDS: Aspirin EC 81 mg TAB.EC (enteric coated) PO SCH (08:51)
[2021-08-13] MEDS: Oxymetazoline 0.05% NASAL SPR 15 ML BTL BOTH NARES SCH ×2 (08:52→20:47)
[2021-08-13] MEDS: Latanoprost 0.005% 2.5 ml BTL BOTH EYES SCH (20:46)
[2021-08-14] MEDS: Meropenem 1 GM PREMIX(*) 1 GM/50 ML BAG IV SCH ×2 (05:14→17:56)
[2021-08-14] MEDS: Heparin 5000 UNITS/ML 1 mL VIAL SUBCUT SCH ×3 (05:14→22:47)
[2021-08-14] MEDS: Aspirin EC 81 mg TAB.EC (enteric coated) PO SCH (07:25)
[2021-08-14] MEDS: Potassium Chlor 20 meq TAB.ER PO SCH ×2 (07:25→19:48)
[2021-08-14] MEDS: Oxymetazoline 0.05% NASAL SPR 15 ML BTL BOTH NARES SCH ×2 (07:25→19:48)
[2021-08-14 08:41] LABS: Magnesium 2.1 mg/dL (1.9-2.7); Potassium 4.3 mmol/L (3.5-5.0); eGFR CKD-EPI 44.2 (>60)
[2021-08-14 09:53] LABS: Calcium 9.5 mg/dL (8.6-10.3)
[2021-08-14] MEDS: Latanoprost 0.005% 2.5 ml BTL BOTH EYES SCH (19:48)
[2021-08-15] MEDS: Heparin 5000 UNITS/ML 1 mL VIAL SUBCUT SCH (04:26)
[2021-08-15] MEDS: Meropenem 1 GM PREMIX(*) 1 GM/50 ML BAG IV SCH (05:05)
[2021-08-15] MEDS: Aspirin EC 81 mg TAB.EC (enteric coated) PO SCH (07:54)
[2021-08-15] MEDS: Potassium Chlor 20 meq TAB.ER PO SCH (07:55)
[2021-08-15] MEDS: Oxymetazoline 0.05% NASAL SPR 15 ML BTL BOTH NARES SCH (07:55)
[2021-08-15 11:45] LABS: Rapid COVID-19 Molecular Detected (Undetected)
[2021-08-15 11:57] VITALS: BP 127/46
== END 2021-08-15 13:40 | DRG 689 ==
LOC: ED 08:20 → SUATTDRO 13:43 → EDHOLD 13:43 → ICU 18:40 → MED 08-10 02:43
PROVIDERS: ADMIT Pediatrics; ATTEND Internal Medicine

== ENCOUNTER 2022-06-14 13:24 | Inpatient (IN) ==
[2022-06-14 14:06] LABS: Urine Appearance Cloudy; Urine Bilirubin Negative (Negative); Urine Blood 2+ (Negative); Urine Color Amber; Urine Glucose Negative (Negative); Urine Ketones Negative (Negative); Urine Nitrite Positive (Negative); Urine Protein 1+(30 mg/dL) (Negative); Urine Specific Gravity 1.006 (1.002-1.030); Urine Urobilinogen Negative (Negative)
[2022-06-14 14:10] LABS: Urine Bacteria 3+ (Absent); Urine Red Blood Cell 3+(>10/hpf) (Absent); Urine Squamous Epithelial Cell Present (Absent); Urine White Blood Cell 2+(11-20/hpf) (Absent)
[2022-06-14 14:54] LABS: ABS Basophils 0.1 10^3/ul (0-0.2); ABS Eosinophils 0.1 10^3/ul (0-0.6); ABS Monocytes 0.7 10^3/ul (0-0.8); ABS Neutrophils 7.6 10^3/ul (1.5-7.7); Eosinophil % 1.2 %; Hematocrit 37 % (35-47); Lymphocyte % 10.6 %; Mean Corpuscular Hemoglobin 32 pg (27-31); Mean Corpuscular Hgb Conc 32 g/dL (31-36); Mean Corpuscular Volume 99 fL (80-97); Mean Platelet Volume 7.9 fL (7.4-10.4); Nucleated Red Blood Cells % 0.1; Platelet Count 203 10^3/uL (150-450); Red Blood Count 3.74 10^6 /uL (3.70-4.87); Red Cell Distribution Width 14 % (10-15); White Blood Count 9.5 10^3/uL (3.5-10.8)
[2022-06-14 15:26] LABS: Albumin 3.9 g/dL (3.2-5.2); Albumin/Globulin Ratio 1.5 (1-3); Calcium 9.9 mg/dL (8.6-10.3); Creatinine, Serum 2.51 mg/dL (0.51-0.95); Globulin 2.6 g/dL (2-4); Total Bilirubin 0.6 mg/dL (0.2-1.0); Total Protein 6.5 g/dL (6.4-8.9); eGFR CKD-EPI 18.3 (>60)
[2022-06-14] MEDS ORDERED: Cefepime 1 GM in Dextrose 1 GM/50 ML BAG IV ONE (15:43)
[2022-06-14 15:45] LABS: Potassium 5.3 mmol/L (3.5-5.0)
[2022-06-14] MEDS ORDERED: NS 0.9% 1000 ml BAG 1,000 ML IV SCH (15:45)
[2022-06-14] MEDS ORDERED: PHENAZOPYRIDINE 200 MG PO PRN (18:38)
[2022-06-14] MEDS ORDERED: Potassium Chlor 20 meq TAB.ER PO SCH (21:00)
[2022-06-14] MEDS: DULoxetine DR 30 mg CAP PO SCH (21:24)
[2022-06-14] MEDS: Enoxaparin 30 MG/0.3 ML SYR SUBCUT SCH (21:25)
[2022-06-14] MEDS: NS 0.9% 1000 ml BAG 1,000 ML IV SCH (23:51)
[2022-06-15 06:38] LABS: ABS Eosinophils 0.1 10^3/ul (0-0.6); ABS Lymphocytes 0.8 10^3/ul (1.0-4.8); ABS Monocytes 0.7 10^3/ul (0-0.8); ABS Neutrophils 6.2 10^3/ul (1.5-7.7); Eosinophil % 1.7 %; Hematocrit 35 % (35-47); Hemoglobin 11.5 g/dL (12.0-16.0); Lymphocyte % 10.1 %; Mean Corpuscular Hemoglobin 33 pg (27-31); Mean Corpuscular Hgb Conc 33 g/dL (31-36); Mean Corpuscular Volume 100 fL (80-97); Mean Platelet Volume 8.3 fL (7.4-10.4); Platelet Count 193 10^3/uL (150-450); Red Blood Count 3.51 10^6 /uL (3.70-4.87); Red Cell Distribution Width 14 % (10-15); White Blood Count 7.9 10^3/uL (3.5-10.8)
[2022-06-15 06:53] LABS: Calcium 9.3 mg/dL (8.6-10.3); Creatinine, Serum 2.4 mg/dL (0.51-0.95); Potassium 4.8 mmol/L (3.5-5.0); eGFR CKD-EPI 19.3 (>60)
[2022-06-15] MEDS: DULoxetine DR 30 mg CAP PO SCH (08:55)
[2022-06-15] MEDS ORDERED: Cefepime ADVAN 1 GM in NS 0.9% 50 ML 50 ML IVPB SCH (16:00)
[2022-06-15] MEDS: Cefepime 1 GM in Dextrose 1 GM/50 ML BAG IV SCH (16:08)
[2022-06-15 17:07] LABS: Creatinine, Serum 2.33 mg/dL (0.51-0.95)
[2022-06-15 17:11] LABS: Potassium 5.1 mmol/L (3.5-5.0)
[2022-06-15] MEDS: Enoxaparin 30 MG/0.3 ML SYR SUBCUT SCH (20:44)
[2022-06-15] MEDS: NS 0.9% 1000 ml BAG 1,000 ML IV SCH (23:12)
[2022-06-16 06:12] LABS: ABS Basophils 0.1 10^3/ul (0-0.2); ABS Eosinophils 0.1 10^3/ul (0-0.6); ABS Lymphocytes 1.1 10^3/ul (1.0-4.8); ABS Monocytes 0.7 10^3/ul (0-0.8); ABS Neutrophils 6.1 10^3/ul (1.5-7.7); Eosinophil % 1.8 %; Hematocrit 34 % (35-47); Hemoglobin 10.8 g/dL (12.0-16.0); Lymphocyte % 13.8 %; Mean Corpuscular Hemoglobin 32 pg (27-31); Mean Corpuscular Hgb Conc 32 g/dL (31-36); Mean Corpuscular Volume 99 fL (80-97); Mean Platelet Volume 7.9 fL (7.4-10.4); Platelet Count 199 10^3/uL (150-450); Red Blood Count 3.44 10^6 /uL (3.70-4.87); Red Cell Distribution Width 14 % (10-15); White Blood Count 8.2 10^3/uL (3.5-10.8)
[2022-06-16 06:45] LABS: Calcium 8.9 mg/dL (8.6-10.3); Creatinine, Serum 2.14 mg/dL (0.51-0.95); Potassium 4.6 mmol/L (3.5-5.0); eGFR CKD-EPI 22.2 (>60)
[2022-06-16] MEDS: DULoxetine DR 30 mg CAP PO SCH (09:27)
[2022-06-16] MEDS: dilTIAZem 30 MG TAB PO SCH ×2 (09:27→21:51)
[2022-06-16] MEDS: Cefepime 1 GM in Dextrose 1 GM/50 ML BAG IV SCH (16:58)
[2022-06-16] MEDS: Enoxaparin 30 MG/0.3 ML SYR SUBCUT SCH (21:51)
[2022-06-17 07:14] LABS: ABS Eosinophils 0.1 10^3/ul (0-0.6); ABS Lymphocytes 1.2 10^3/ul (1.0-4.8); ABS Monocytes 0.8 10^3/ul (0-0.8); ABS Neutrophils 6.4 10^3/ul (1.5-7.7); Eosinophil % 1.6 %; Hematocrit 35 % (35-47); Hemoglobin 11.5 g/dL (12.0-16.0); Lymphocyte % 13.7 %; Mean Corpuscular Hemoglobin 33 pg (27-31); Mean Corpuscular Hgb Conc 33 g/dL (31-36); Mean Corpuscular Volume 100 fL (80-97); Mean Platelet Volume 7.9 fL (7.4-10.4); Nucleated Red Blood Cells % 0.1; Platelet Count 203 10^3/uL (150-450); Red Cell Distribution Width 13 % (10-15); White Blood Count 8.5 10^3/uL (3.5-10.8)
[2022-06-17 08:05] LABS: Calcium 9.4 mg/dL (8.6-10.3); Creatinine, Serum 1.74 mg/dL (0.51-0.95); Magnesium 1.9 mg/dL (1.9-2.7); Potassium 4.1 mmol/L (3.5-5.0); eGFR CKD-EPI 28.4 (>60)
[2022-06-17] MEDS: DULoxetine DR 30 mg CAP PO SCH (09:58)
[2022-06-17] MEDS: dilTIAZem 30 MG TAB PO SCH ×2 (09:59→20:06)
[2022-06-17 11:11] VITALS: BP 133/63
[2022-06-17] MEDS: Enoxaparin 30 MG/0.3 ML SYR SUBCUT SCH (20:06)
[2022-06-17] MEDS ORDERED: Calcium Carb (TUMS) 500 mg CHEW TAB PO ONE (21:48)
== END 2022-06-17 22:15 | disposition home health service (06) | DRG 689 ==
LOC: EDHOLD 13:24 → ED 13:24 → EDHOLD 18:22 → MED 20:41 → UNDODISIN 06-17 16:06
PROVIDERS: ADMIT Internal Medicine; ATTEND Internal Medicine